=== PATIENT | female | born 1935 | race Caucasian/White ===

== ENCOUNTER 2017-10-22 23:29 | Emergency (ER) | payer MEDICARE, OTHER, SELFPAY ==
[2017-10-22 23:35] VITALS: BP 156/111; PULSE 103; RESP 20; TEMP 36.6; O2SAT 95; BMI 40.5
--- NOTE | 2017-10-22 23:57 | ED.VISSUMM ---
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 Patient states her cat scratched her left ankle earlier today. Patient states she was scratched with the cats back claws, not with the cat's mouth. Wounds were cleansed and dressed at that time. Patient states she got up tonight to go to bed and had blood on the pillow under her ankle. Physical Examination: Blood pressure is 156/111, otherwise vitals normal. Patient is in no acute distress. Lower extremity examination reveals 3+ bilateral lower extremity edema. She has 3 V-shaped superficial lacerations on the lateral left ankle. Each laceration measures approximately 1/2 cm in length. One of the lesions has mild bleeding at this time. Test Results: [] Emergency Department Course and Treatment: Wound was cleansed. Surgifoam was placed over the wound and Santo wrap applied. Patient has been on the same dose of Coumadin for quite some time and has not recently been on antibiotics. I do not think INR needs to be checked at this time. Her bleeding is very minimal. Treatment Plan: [] Disposition: Discharge Impression: Superficial skin tear left ankle This note was generated with [employer] dictation software. It may contain incorrect words, spelling, and punctuation that were not noted in review of the chart prior to signing ED Disposition - Plan for ED Patient: Chief Complaint: Laceration Referrals: Aditya Hope Chi, MD [Primary Care Provider] -
--- NOTE | 2017-10-22 23:59 | ED.DEP ---
ED Disposition - Plan for ED Patient: Disposition: Home or Assisted Living Chief Complaint: Laceration Instructions: ED Laceration Small Superf No Sutr Referrals: Aditya Hope Chi, MD [Primary Care Provider] - As Needed
[2017-10-23 00:23] VITALS: PULSE 98; RESP 16
== END 2017-10-23 00:23 | disposition home or self-care (01) ==
LOC: ED 10-23 00:06
PROVIDERS: Emergency Provider Emergency Medicine; Family Provider Family Medicine Geriatric Medicine; PCP Family Medicine Geriatric Medicine
DX: S91.012A Laceration without foreign body, left ankle, initial encounter (principal); R60.0 Localized edema; E66.9 Obesity, unspecified; W55.03XA Scratched by cat, initial encounter; Y93.9 Activity, unspecified; Y92.9 Unspecified place or not applicable; I25.10 Atherosclerotic heart disease of native coronary artery without angina pectoris; J44.9 Chronic obstructive pulmonary disease, unspecified; K21.9 Gastro-esophageal reflux disease without esophagitis; I10 Essential (primary) hypertension; I48.91 Unspecified atrial fibrillation; E03.9 Hypothyroidism, unspecified; Z86.718 Personal history of other venous thrombosis and embolism; G47.33 Obstructive sleep apnea (adult) (pediatric); M54.9 Dorsalgia, unspecified; Z79.82 Long term (current) use of aspirin; Z79.01 Long term (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 anticoagulants; Z79.02 Long term (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 antithrombotics/antiplatelets; Z79.899 Other long term (current) drug therapy
CPT/HCPCS: 99282

== ENCOUNTER → 2017-11-04 14:18 | Outpatient (CLI) | payer MEDICARE, OTHER, SELFPAY ==
[2017-11-04 17:25] LABS: Absolute Lymphocyte Count 1.91 X10^3/ul (0.83-4.51); Basophil# 0.03 X10^3/uL; Basophil% 0.3 % (0-1); Eosinophil# 0.09 X10^3/uL; Eosinophils% 0.8 % (0-5); Hematocrit 41.9 % (37-47); Hemoglobin 13.3 g/dl (12.0-15.0); Lymphocyte # 1.91 X10^3/ul (4.0); Lymphocyte % 16.1 % (19-41); Mean Corp Hgb Conc 31.7 g/gl (32-36); Mean Corpuscular Volume 97.7 fL (81-99); Mean Platelet Vol. 11.3 fl (6.2-12.0); Monocyte# 0.82 X10^3/uL; Monocyte% 6.9 % (0-10); Neutrophil # 8.98 X10^3/uL (2.7-7.7); Neutrophil % 75.7 % (47-70); POSITIVE COUNT NO; POSITIVE DIFFERENTIAL NO; POSITIVE MORPHOLOGY NO; Platelet Count 259 K/mm3 (150-450); RBC Distribution Width SD 45.8 fl (35.1-43.9); Red Blood Count 4.29 M/mm3 (4.2-5.4); White Blood Count 11.9 K/mm3 (4.4-11.0)
[2017-11-04 18:10] LABS: ALB/GLOB Ratio 1.1 RATIO (0.9-2.4); AST(SGOT) 13 U/L (15-37); Alanine Aminotransfer ALT/SGPT 19 U/L (13-56); Albumin, Serum 3.3 g/dL (3.2-5.0); Alkaline Phosphatase 130 U/L (45-117); Anion Gap 10 (5-15); BUN 18 mg/dL (7-18); BUN/Creat Ratio 21.5 RATIO (10-20); Calcium,Total 9.6 mg/dL (8.5-10.1); Chloride 106 mmol/L (98-107); Creatinine, Serum 0.84 mg/dL (0.55-1.02); EST Glomerular Filtration Rate 69 mL/min (>60); Est Glom Filt Rate - Afr Amer 84 mL/min (>60); Glucose 122 mg/dL (74-106); Potassium 3.5 mmol/L (3.5-5.1); Protein, Total 6.3 g/dL (6.4-8.2); Sodium Level 141 mmol/L (136-145)
[2017-11-04 21:37] LABS: Vitamin D,25 Hydroxy 35.6 ng/mL (19.95-100.01)
== END ==
PROVIDERS: Family Provider Family Medicine Geriatric Medicine; PCP Family Medicine Geriatric Medicine; Visit Provider Family Medicine Geriatric Medicine
DX: E55.9 Vitamin D deficiency, unspecified (principal); I10 Essential (primary) hypertension; M10.9 Gout, unspecified
CPT/HCPCS: 36415; 80053; 82306; 84443; 85025

== ENCOUNTER → 2017-12-02 15:31 | Outpatient (CLI) | payer MEDICARE, OTHER, SELFPAY | PROVIDERS: Family Provider Family Medicine Geriatric Medicine; PCP Family Medicine Geriatric Medicine; Visit Provider Family Medicine Geriatric Medicine | DX: R68.83 Chills (without fever) (principal) | CPT/HCPCS: 87633 ==

== ENCOUNTER → 2017-12-30 12:59 | Outpatient (CLI) | payer MEDICARE, OTHER, SELFPAY ==
--- NOTE | 2017-12-30 13:01 | ECHOD_ITS ---
Reason For Study: Dyspnea/SOB Procedure This was a 2D Doppler, Color Flow transthoracic echocardiogram. The study was technically difficult. Did not use Definity due to increased PAP. Exam performed in department. Left Ventricle Normal LV size. Left ventricular systolic function is normal. The estimated ejection fraction is 55 %. Transmitral diastolic flow velocities suggest mild (stage 1) diastolic dysfunction (reversed pattern). No regional wall motion abnormalities noted. Right Ventricle Normal RV size. Normal systolic function. Atria Normal left atrium. Normal right atrium. Mitral Valve Normal mitral valve. Trivial eccentric mitral valve insufficiency. Tricuspid Valve Normal tricuspid valve. Mild (1+) tricuspid valve insufficiency. Pulmonary artery systolic pressure is 63 mmHg. Moderate pulmonary hypertension. Aortic Valve Trisinus/trileaflet aortic valve. Mild focal aortic valve calcification. Pulmonic Valve Normal pulmonic valve. Great Vessels Normal aortic root. The pulmonary artery is normal size. Normal inferior vena cava. Pericardium/Pleural No pericardial effusion. MMode/2D Measurements & Calculations LVIDd: 4.4 cm IVSd: 0.77 cm Ao root diam: 2.9 cm LVIDs: 2.8 cm LVPWd: 0.80 cm LA dimension: 4.0 cm RVDd: 3.3 cm FS: 36.0 % LAV(MOD-bp): 39.2 ml LA A4 area: 15.3 cm2 RA A4 area: 13.8 cm2 LAV(MOD-bp) Indexed: 18.9 ml/m2 LAV(MOD-sp2): 42.3 ml LAV(MOD-sp4): 35.8 ml Doppler Measurements & Calculations MV E max reji: 83.9 cm/sec Lat Peak E' Reji: 7.4 cm/sec Med Peak E' Reji: 7.7 cm/sec MV A max reji: 105.0 cm/sec E/E' lat: 11.4 E/E' med: 10.8 MV E/A: 0.80 Ao V2 max: 138.4 cm/sec LV V1 max: 106.4 cm/sec PA V2 max: 93.5 cm/sec Ao max P.7 mmHg LV V1 max P.5 mmHg Ao V2 mean: 108.3 cm/sec Ao mean P.0 mmHg Ao V2 VTI: 27.7 cm TR max reji: 383.6 cm/sec TR max P.9 mmHg Interpretation Summary Normal LV size. Left ventricular systolic function is normal. The estimated ejection fraction is 55 %. Transmitral diastolic flow velocities suggest mild (stage 1) diastolic dysfunction (reversed pattern). Pulmonary artery systolic pressure is 63 mmHg. Moderate pulmonary hypertension. Ordering Physician: Bernard Bethea Referring Physician: Aditya Hope Chi Performed By: Christiane Bethea RDCS, RVT
== END ==
PROVIDERS: Family Provider Family Medicine Geriatric Medicine; PCP Family Medicine Geriatric Medicine; Visit Provider Nurse Practitioner Family
DX: I25.10 Atherosclerotic heart disease of native coronary artery without angina pectoris (principal); R06.09 Other forms of dyspnea; I27.20 Pulmonary hypertension, unspecified
CPT/HCPCS: 93306

== ENCOUNTER → 2018-05-06 15:02 | Outpatient (CLI) | payer MEDICARE, SELFPAY ==
[2018-05-06 17:30] LABS: Absolute Lymphocyte Count 1.46 X10^3/ul (0.83-4.51); Absolute Neutrophil Count 8.2 X10^3/uL (2.0-7.7); Basophil# 0.03 X10^3/uL; Basophil% 0.3 % (0-1); Eosinophil# 0.07 X10^3/uL; Eosinophils% 0.6 % (0-5); Hematocrit 45.5 % (37-47); Hemoglobin 14.8 g/dl (12.0-15.0); Lymphocyte # 1.46 X10^3/ul (4.0); Lymphocyte % 13.5 % (19-41); Mean Corp Hgb Conc 32.5 g/gl (32-36); Mean Corpuscular Hgb 31.4 pg (27.0-32.0); Mean Corpuscular Volume 96.6 fL (81-99); Mean Platelet Vol. 12.2 fl (6.2-12.0); Monocyte# 1.05 X10^3/uL; Monocyte% 9.7 % (0-10); Neutrophil % 75.6 % (47-70); Platelet Count 226 K/mm3 (150-450); RBC Distribution Width CV 12.8 % (11.6-14.6); RBC Distribution Width SD 44.6 fl (35.1-43.9); Red Blood Count 4.71 M/mm3 (4.2-5.4); White Blood Count 10.8 K/mm3 (4.4-11.0)
[2018-05-06 17:43] LABS: AST(SGOT) 18 U/L (15-37); Alanine Aminotransfer ALT/SGPT 23 U/L (13-56); Albumin, Serum 3.4 g/dL (3.2-5.0); Alkaline Phosphatase 118 U/L (45-117); Anion Gap 12 (5-15); BUN 12 mg/dL (7-18); BUN/Creat Ratio 12.9 RATIO (10-20); Calcium,Total 9.9 mg/dL (8.5-10.1); Chloride 105 mmol/L (98-107); Creatinine, Serum 0.93 mg/dL (0.55-1.02); EST Glomerular Filtration Rate 61 mL/min (>60); Est Glom Filt Rate - Afr Amer 74 mL/min (>60); Globulin 3.3 g/dL (2.2-4.2); Glucose 114 mg/dL (74-106); Potassium 3.5 mmol/L (3.5-5.1); Protein, Total 6.7 g/dL (6.4-8.2); Sodium Level 142 mmol/L (136-145); Thyroid Stim Hormone (TSH) 0.33 uIU/mL (0.358-3.74); Uric Acid 6.4 mg/dL (2.6-6.0)
[2018-05-06 18:14] LABS: POSITIVE COUNT NO; POSITIVE DIFFERENTIAL NO; POSITIVE MORPHOLOGY NO
[2018-05-07 08:37] LABS: Vitamin D,25 Hydroxy 64.5 ng/mL (29.95-100.01)
== END ==
PROVIDERS: Family Provider Family Medicine Geriatric Medicine; PCP Family Medicine Geriatric Medicine; Visit Provider Family Medicine Geriatric Medicine
DX: E55.9 Vitamin D deficiency, unspecified (principal); I10 Essential (primary) hypertension; M10.9 Gout, unspecified
CPT/HCPCS: 36415; 80053; 82306; 84443; 84550; 85025

== ENCOUNTER → 2018-05-25 16:40 | Outpatient (CLI) | payer MEDICARE, SELFPAY | PROVIDERS: Family Provider Family Medicine Geriatric Medicine; PCP Family Medicine Geriatric Medicine; Visit Provider Family Medicine Geriatric Medicine | DX: N39.0 Urinary tract infection, site not specified (principal) | CPT/HCPCS: 87086; 87088; 87186 ==

== ENCOUNTER → 2018-08-23 12:04 | Outpatient (CLI) | payer MEDICARE, OTHER, SELFPAY ==
[2018-08-23 12:04] VITALS: BMI 40.5
--- NOTE | 2018-08-23 12:19 | RAD_ITS ---
STUDY: X-RAY - RIGHT KNEE REASON FOR EXAM: Female, 83 years old. Pain. TECHNIQUE: 4 view(s) of the knee. COMPARISON: None. FINDINGS: There is mild periarticular spurring of the femoral condyles. There is degenerative anterior and lateral particular spurring of the tibial plateau. Normal visualized proximal fibula. Normal patella. There is no demonstrated destructive osseous lesion or acute fracture. There is degenerative arthrosis of the medial femorotibial compartment with moderate joint space narrowing. There is degenerative arthrosis of the lateral femorotibial compartment with moderately severe joint space narrowing. There is mild to moderate degenerative narrowing of the patellofemoral articulation. There is no significant joint effusion. The soft tissue structures are unremarkable. RAD/Knee 4 or More Views IMPRESSION: Tricompartmental degenerative arthrosis of the knee, most significant in the lateral femorotibial compartment. Electronically Signed: Fer Headley MD at 15:03 EST , Service support ,
--- NOTE | 2018-08-23 12:30 | RAD_ITS ---
STUDY: X-RAY - LEFT KNEE REASON FOR EXAM: Female, 83 years old. Knee pain. History of surgery. TECHNIQUE: 4 view(s) of the knee. COMPARISON: 4 views of the left knee November 19, 2015 FINDINGS: There is stable mild periarticular spurring of the femoral condyles. There is stable periarticular spurring of the lateral plateau as well as spurring of the tibial spines. Normal visualized proximal fibula. There is stable periarticular spurring at the apex of the patella. There is no demonstrated destructive osseous lesion or acute fracture. Normal medial femorotibial compartment. There is stable degenerative arthrosis of the lateral femorotibial compartment with moderate joint space narrowing. There is mild degenerative arthrosis of the patellofemoral articulation. There is no significant joint effusion. The soft tissue structures are unremarkable. RAD/Knee 4 or More Views IMPRESSION: Stable degenerative changes of the left knee since October 2015 Electronically Signed: Fer Headley MD at 15:10 EST , Service support ,
--- OUTSIDE RECORDS SUMMARY | 2018-10-16 18:19 | XMS RPT_ITS ---
:1935 Author Organization OHIP Support Name Relationship Address Phone R Unavailable Unavailable Unavailable EZEQUIEL MILLERER Unavailable [address] + [place] [address] R Unavailable Unavailable Unavailable ANGELA CHRISTOPHER Unavailable [address] + [place] [address] R Unavailable Unavailable Unavailable ANGELA CHRISTOPHER Unavailable [address] + [place] [address] R Unavailable Unavailable Unavailable ANGELA CHRISTOPHER Unavailable [address] + [place] [address] R Unavailable Unavailable Unavailable ANGELA CHRISTOPHER Unavailable [address] + [place] [address] R Unavailable Unavailable Unavailable ANGELA CHRISTOPHER Unavailable [address] + [place] [address] R Unavailable Unavailable Unavailable ANGELA CHRISTOPHER Unavailable [address] + [place] [address] R Unavailable Unavailable Unavailable ANGELA CHRISTOPHER Unavailable [address] + [place] [address] R Unavailable Unavailable Unavailable ANGELA CHRISTOPHER Unavailable [address] + [place] [address] R Unavailable Unavailable Unavailable ANGELA CHRISTOPHER Unavailable [address] + [place] [address] R Unavailable Unavailable Unavailable ANGELA CHRISTOPHER Unavailable [address] + [place] [address] R Unavailable Unavailable Unavailable ANGELA CHRISTOPHER Unavailable [address] + [place] [address] R Unavailable Unavailable Unavailable IRVING MILLEROPHER Unavailable [address] + [place] [address] R Unavailable Unavailable Unavailable ANGELA, CHRISTOPHER Unavailable [address] + [place] [address] R Unavailable Unavailable Unavailable ANGELA, CHRISTOPHER Unavailable [address] + [place] [address] R Unavailable Unavailable Unavailable ANGELA, CHRISTOPHER Unavailable [address] + [place] [address] R Unavailable Unavailable Unavailable ANGELA, CHRISTOPHER Unavailable [address] + [place] [address] R Unavailable Unavailable Unavailable ANGELA, CHRISTOPHER Unavailable [address] + [place] [address] R Unavailable Unavailable Unavailable R Unavailable Unavailable Unavailable ANGELA, CHRISTOPHER Unavailable [address] + [place] [address] ABEBA BARNETT Unavailable [address] + [place] [address] R Unavailable Unavailable Unavailable ANGELA, CHRISTOPHER Unavailable [address] + [place] [address] ALY BARNETTWARD Unavailable [address] + [place] [address] R Unavailable Unavailable Unavailable ANGELA, CHRISTOPHER Unavailable [address] + [place] [address] ABEBA BARNETT Unavailable [address] + [place] [address] R Unavailable Unavailable Unavailable ANGELA, CHRISTOPHER Unavailable [address] + [place] [address] R Unavailable Unavailable Unavailable R Unavailable Unavailable Unavailable ANGELA CHRISTOPHER Unavailable [address] + [place] [address] R Unavailable Unavailable Unavailable R Unavailable Unavailable Unavailable ANGELA, CHRISTOPHER Unavailable [address] + [place] [address] Care Team Providers Name Role Phone Aditya Hope Chi Primary Care Unavailable Elise Min Attending Unavailable Jayy, Aditya Chi Attending Unavailable Jayy, Aditya Chi Primary Care Unavailable Jayy, Aditya Chi Attending Unavailable Jayy, Aditya Chi Referring Unavailable Jayy, Aditya Chi Primary Care Unavailable Sonny Person Attending Unavailable Jayy, Aditya Chi Referring Unavailable DeFinisTyreeumi Attending Unavailable Roof, Bernard H Attending Unavailable Jayy, Aditya Chi Referring Unavailable Jayy, Aditya Chi Primary Care Unavailable Roof, Bernard H Attending Unavailable Roof, Bernard H Referring Unavailable Jayy, Aditya Chi Primary Care Unavailable Roof, Bernard H Attending Unavailable Roof, Bernard H Referring Unavailable Jayy, Aditya Chi Primary Care Unavailable Sonny Person Attending Unavailable Dossie, Cesia Zuleta Attending Unavailable Jayy, Aditya Chi Referring Unavailable Jayy, Aditya Chi Primary Care Unavailable Dossie, Cesia Zuleta Attending Unavailable Dossie, Cesia BaldwinCJaspal Referring Unavailable Jayy, Aditya Chi Primary Care Unavailable Dossie, Cesia Zuleta Attending Unavailable Jayy, Aditya Chi Referring Unavailable Jayy, Aditya Chi Primary Care Unavailable Dossie, Cesia Zuleta Attending Unavailable Jayy, Aditya Chi Referring Unavailable Jayy, Aditya Chi Primary Care Unavailable Dossie, Cesia Zuleta Attending Unavailable Jayy, Aditya Chi Referring Unavailable Jayy, Aditya Chi Primary Care Unavailable Dossie, Cesia Zuleta Attending Unavailable Jayy, Aditya Chi Referring Unavailable Jayy, Aditya Chi Primary Care Unavailable Dossie, Cesia Zuleta Attending Unavailable Jayy, Aditya Chi Referring Unavailable Jayy, Aditya Chi Primary Care Unavailable Dossie, Cesia Zuleta Attending Unavailable Jayy, Aditya Chi Referring Unavailable Jayy, Aditya Chi Primary Care Unavailable Sonny Person Attending Unavailable Dossie, Cesia Zuleta Attending Unavailable Jayy, Aditya Chi Referring Unavailable Jayy, Aditya Chi Primary Care Unavailable Jayy, Aditya Chi Attending Unavailable Jayy, Aditya Chi Primary Care Unavailable Jayy, Aditya Chi Attending Unavailable Jayy, Aditya Chi Primary Care Unavailable Nolt, Cynthia Attending Unavailable Sonny Person Attending Unavailable Jayy, Aditya Chi Referring Unavailable Jayy, Aditya Chi Attending Unavailable Jayy, Aditya Chi Referring Unavailable Jayy, Aditya Chi Primary Care Unavailable PROBLEMS PROBLEMS DATE TYPE CONDITION / CODE ATTENDING STATUS SOURCE 06/22/2018 Unknown R00.2 - Palpitations Sonny Person Active [facility] / R00.2(ICD-10) [facility] Repository 06/22/2018 Unknown I10 - Essential Naya, [place] Active [facility] (primary) Community hypertension / Hospital I10(ICD-10) Repository 06/22/2018 Unknown Z95.5 - Presence of Naya, Sonny Active [place] coronary angioplasty Community implant and graft / Hospital Z95.5(ICD-10) Repository 06/22/2018 Unknown I48.91 - Unspecified Naya, Sonny Active [place] atrial fibrillation / Community I48.91(ICD-10) Hospital Repository 04/13/2018 Unknown M99.03 - Segmental Dossie, Cesia Active [facility] and somatic [facility] Community dysfunction of lumbar Hospital region / Repository M99.03(ICD-10) 04/13/2018 Unknown M51.36 - Other Dossie, Cesia Active [facility] intervertebral disc [facility] Community degeneration, lumbar Hospital region / Repository M51.36(ICD-10) 04/13/2018 Unknown M99.05 - Segmental Dossie, Cesia Active [place] and somatic D.C[facility] Community dysfunction of pelvic Hospital region / Repository M99.05(ICD-10) 04/13/2018 Unknown M99.02 - Segmental Dossie, Cesia Active [facility] and [facility] Community dysfunction of Hospital thoracic region / Repository M99.02(ICD-10) 12/28/2017 Unknown R06.09 - Other forms RoofBernard Active [facility] of dyspnea / Community R06.09(ICD-10) Hospital Repository 12/28/2017 Unknown I25.10 - Roof, Bernard Moreau Active [place] Atherosclerotic heart Community disease of [place] [facility] coronary artery Repository without angina pectoris / I25.10(ICD-10) 12/28/2017 Unknown I27.20 - Pulmonary Roof, Bernard Moreau Active [place] hypertension, Community unspecified / Hospital I27.20(ICD-10) Repository 12/02/2017 Unknown R68.83 - Chills Jayy, Aditya Chi Active [facility] (without fever) / Community R68.83(ICD-10) Hospital Repository 12/31/2017 Unknown E55.9 - Vitamin D Jayy, Aditya Chi Active [place] deficiency, Community unspecified / Hospital E55.9(ICD-10) Repository 04/01/2018 Unknown S91.012A - Laceration Min, Elise Active [facility] without foreign body, Community left ankle, initial Hospital encounter / Repository S91.012A(ICD-10) PROCEDURES PROCEDURES No Procedure Records FoundRESULTS RESULTS KNEE 4 OR MORE Observed: 08/23/2018 Status: F Source: [place] VIEWS 12:19 PM [facility] REPOSITORY [facility] Imaging Services [address] [place] [address] Knee 4 or More Views MR#: [id number] Acct: [id number] Name: PAULO MILLER Rep #: [id number] : 1935 F 83 From: Mariano Headley MD PCP: Aditya Hope MD, Chi Status: REG CLI Study: Knee 4 or More Views Date of Exam: 08/23/18 Exam# [id number] Ordering Dr: Aditya Hope MD ADDENDUM by Fer Headley on 08/23/18 at 6589 ADDENDUM 4 images of the right knee April 14, 2016 and received for comparison. Lateral periarticular spurring of the patella is stable, and the degenerative arthrosis of the knee described in the body of the report is otherwise unchanged. Electronically Signed: Fer Headley MD at 15:12 EST , Service support , 08/23/181511 Date cc: Aditya Hope MD * Signed ADDENDUM by Fer Headley on 08/23/18 at 3290 RAD/Knee 4 or More Views 08/23/181517 Date cc: Aditya Hope MD * Signed STUDY: X-RAY - RIGHT KNEE REASON FOR EXAM: Female, 83 years old. Pain. TECHNIQUE: 4 view(s) of the knee. COMPARISON: None. FINDINGS: There is mild periarticular spurring of the femoral condyles. There is degenerative anterior and lateral particular spurring of the tibial plateau. Normal visualized proximal fibula. Normal patella. There is no demonstrated destructive osseous lesion or acute fracture. There is degenerative arthrosis of the medial femorotibial compartment with moderate joint space narrowing. There is degenerative arthrosis of the lateral femorotibial compartment with moderately severe joint space narrowing. There is mild to moderate degenerative narrowing of the patellofemoral articulation. There is no significant joint effusion. The soft tissue structures are unremarkable. RAD/Knee 4 or More Views IMPRESSION: Tricompartmental degenerative arthrosis of the knee, most significant in the lateral femorotibial compartment. Electronically Signed: Fer Headley MD at 15:03 EST , Service support , CC: Aditya Hope MD Supervisor Publications: Signed KNEE 4 OR MORE Observed: 08/23/2018 Status: F Source: [place] VIEWS 12:11 PM [facility] REPOSITORY [facility] Imaging Services [address] [place] [id number] Knee 4 or More Views MR#: [id number] Acct: [id number] Name: PAULO MILLER Rep #: [id number] : 1935 F 83 From: Mariano Headley MD PCP: Aditya Hope MD, Chi Status: REG CLI Study: Knee 4 or More Views Date of Exam: 08/23/18 Exam# [id number] Ordering Dr: Aditya Hope MD STUDY: X-RAY - LEFT KNEE REASON FOR EXAM: Female, 83 years old. Knee pain. History of surgery. TECHNIQUE: 4 view(s) of the knee. COMPARISON: 4 views of the left knee November 19, 2015 FINDINGS: There is stable mild periarticular spurring of the femoral condyles. There is stable periarticular spurring of the lateral plateau as well as spurring of the tibial spines. Normal visualized proximal fibula. There is stable periarticular spurring at the apex of the patella. There is no demonstrated destructive osseous lesion or acute fracture. Normal medial femorotibial compartment. There is stable degenerative arthrosis of the lateral femorotibial compartment with moderate joint space narrowing. There is mild degenerative arthrosis of the patellofemoral articulation. There is no significant joint effusion. The soft tissue structures are unremarkable. RAD/Knee 4 or More Views IMPRESSION: Stable degenerative changes of the left knee since October 2015 Electronically Signed: Fer Headley MD at 15:10 EST , Service support , CC: Aditya Hope MD Supervisor Publications: Signed CARDIOLOGY VISIT Observed: 06/22/2018 Status: F Source: [place] REPORT 3:40 PM [facility] REPOSITORY [facility] [address] [place] [address] OFFICE VISIT Date of Service: 06/22/18 MR#: [id number] Acct: [id number] Name: PAULO MILLER Rep #: [id number] : 1935 Provider: Sonny Person MD Age/Sex: 82/F [place] [facility] [place] S[place] [facility] Chief Complaint: Follow-up visit. Details: PAULO MILLER, is a 82 F who presents to the office today for a follow-up visit. She is a lady with a history of coronary artery disease status post angioplasty and stenting of a proximal 80% stenosis in the left anterior descending artery and residual disease noted in the right coronary artery which was severe. Medical therapy was recommended for the above. She appears to have done well denying any chest pain or shortness breath or paroxysmal nocturnal dyspnea. She did undergo stress testing in 2014 with no evidence of ischemia. She also has a history of previous pulmonary emboli and has a mildly dilated right ventricle with moderate pulmonary hypertension. Her pulmonary artery systolic pressures have been in the range of 50-55 mmHg with a preserved ejection fraction. She has not had any neck arm or jaw discomfort suggest angina and has not had any further episodes of palpitations. She continues to have nonpitting pedal edema. Her physical exam demonstrates clear lung villegas regular rate and rhythm and nonpitting edema. 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 Required: No Is patient in pain?: No Allergies ibuprofen Allergy (Verified 06/17/18 16:42) Unknown Medications Budesonide/Formoterol 160/4.5 [Symbicort 160/4.5 Mcg Inhaler (SP)] 2 puff INHALATION BID 11/24/13 [History Confirmed 06/22/18] Omeprazole [Prilosec] 20 mg PO DAILY 11/24/13 [History Confirmed 06/22/18] Pravastatin Sodium [Pravachol] 40 mg PO QHS 11/24/13 [History Confirmed 06/22/18] Warfarin [Coumadin] 3 mg PO DAILY 11/24/13 [History Confirmed 06/22/18] Levothyroxine [Synthroid] 112 mcg PO DAILY 04/14/16 [History Confirmed 06/22/18] Aspirin [Aspirin, Baby] 81 mg PO DAILY@0800 10/20/16 [History Confirmed 06/22/18] Cholecalciferol (Vitamin D3) [Vitamin D3] 5,000 unit PO DAILY 10/20/16 [History Confirmed 06/22/18] Methenamine Mandelate 1 tab PO QHS 10/20/16 [History Confirmed 06/22/18] Ascorbic Acid [Vitamin C] 500 mg PO DAILY@0800 05/12/17 [History Confirmed 12/28/17] Cyanocobalamin (Vitamin B-12) [Vitamin B-12] 500 mcg PO DAILY 05/12/17 [History Confirmed 06/22/18] Tiotropium Logan [Spiriva 18 MCG] 1 puff INHALATION DAILY 05/12/17 [History Confirmed 06/22/18] ergocalciferol (vitamin D2) 50,000 unit capsule 50,000 unit PO QWEEK 12/10/17 [History Confirmed 06/22/18] nitroglycerin 0.4 mg sublingual tablet 0.4 mg SUBLINGUAL Q5M PRN 12/10/17 [History Confirmed 06/22/18] acetaminophen 500 mg capsule 500 mg PO Q6H PRN 12/28/17 [History Confirmed 12/28/17] lisinopril 10 mg tablet 10 mg PO QDAY 12/28/17 [History Confirmed 06/22/18] clopidogrel 75 mg tablet 75 mg PO DAILY #90 tab 01/15/18 [Rx Confirmed 06/22/18] isosorbide mononitrate ER 30 mg tablet,extended release 24 hr 30 mg PO DAILY #90 tab 04/05/18 [Rx Confirmed 06/22/18] furosemide 40 mg tablet 20 mg PO DAILY tab 06/22/18 [History Confirmed 06/22/18] PFS Medical History senior living current use of anticoagulant (Chronic) Essential hypertension (Chronic) DDD (degenerative disc disease), lumbar (Chronic) Dyspnea on exertion (Resolved) Palpitations (Resolved) Pulmonary hypertension (Chronic) Atherosclerotic heart disease of [place] coronary artery without angina pectoris (Chronic) senior living use of drug (Chronic) Paroxysmal tachycardia (Chronic) Pulmonary embolism (Chronic) VTE (venous thromboembolism) (Chronic) CAD (coronary artery disease) (Chronic) Hyperlipidemia (Chronic) ADAIR (obstructive sleep apnea) (Chronic) Atrial fibrillation (Chronic) COPD (chronic obstructive pulmonary disease) (Chronic) Hypothyroid (Chronic) GERD (gastroesophageal reflux disease) (Chronic) Syncope and collapse (Chronic) Chest pain (Resolved) Fatigue (Resolved) History of hysterectomy (Resolved) Hypertension (Resolved) Surgical History Presence of stent in coronary artery (Resolved) Family History Father Myocardial infarction hx black lung Mother CHF (congestive heart failure) Sister CAD (coronary artery disease) Hx CABG Myocardial infarction Diabetes CHF (congestive heart failure) Brother FH: ALS (amyotrophic lateral sclerosis) Brother pacemaker Social History Smoking Status: Never smoker alcohol intake: never substance use type: does not use diet: low salt caffeine: No what type of physical activity do you participate in: none seatbelt use: always do you feel safe at home: Yes ROS Const Const: Negative for fatigue, weakness, night sweats, excessive sweating, frequent falls, headache(s) or daytime sleepiness Eyes Eyes: Negative for loss of peripheral vision, transient loss of vision, blind spots, double vision or blurry vision ENT ENT: Negative for headache(s), dizziness, balance problems, Nosebleed/epistaxis, tongue swelling or lip swelling Cardio Chest Pain: No Palpitations: No Edema: Bilateral Muscle aches with walking: None Resp Respiratory: Positive for SOB with activity; negative for SOB at rest, SOB orthopnea\SOB lying down, Cough or paroxysmal nocturnal dyspnea GI GI: Negative nausea, vomiting, heartburn, black,tarry stools or bright, red blood in stools : Negative for hematuria Musc Musc: Negative for balance problems, muscle aches/ myalgia, muscle weakness or joint pain Skin Skin: Negative non-healing lesions, unusual bruising or rash Neuro Neuro: Negative for weakness, frequent falls, headache(s), double vision, dizziness, lightheadedness, orthostatic symptoms, blurry vision or lack of coordination Geovani Hematologic/Lymphatic: Negative for easy bruising or easy bleeding Endo Endo: Negative for fatigue, excessive sweating, cold intolerance, heat intolerance, increased thirst/drinking or hair loss Psych Psych: Negative for anxiety or depression Allergy Allergy/Immunology: Negative for throat swelling, Negative for tongue swelling, Negative for hives, Negative for rash, Negative for lip swelling Cardiology Exam Const Appearance: cooperative, healthy appearing, well developed, well groomed and no acute distress Nutritional Appearance: well nourished and average body habitus Orientation: alert, awake and oriented x3 Head Head: normal to inspection, normocephalic and atraumatic Ears: hearing grossly normal bilaterally and external ears normal Nose: external nose normal, nasal mucous membranes and turbinates normal, nares normal, septum normal, no nasal discharge Face and Sinus: face symmetric Mouth: oral mucosae normal, tongue normal, oropharynx normal and moist mucous membranes Teeth and gingiva: dentition normal Throat: posterior oropharynx normal, tonsils normal and uvula midline Eyes General: appearance normal, both eyes and all related structures Eyelids: eyelids normal Conjunctivae: conjunctivae normal Pupils: PERRL, normal by confrontation and accommodation normal EOM: EOM intact bilaterally Neck Neck: normal visual inspection, trachea midline and no JVD JVD: +5 Carotids: normal carotid upstroke and bounding pulses Chest Chest inspection: normal inspection of the chest, symmetric chest movement and normal respiratory effort Auscultation: Bilateral: Clear to Auscultation Cardio Palpation: normal PMI Rate: regular rate Rhythm: regular rhythm Heart sounds: S1 normal, S2 normal and normal, physiologic split S2; negative rub, gallop or murmur GI GI: normal to inspection, soft, no hepatosplenomegaly and bowel sounds present Neuro General: alert, awake, oriented x3, no focal sensory deficit, gait normal and moves all extremities Skin Skin: no rashes or lesions noted Extremities Lower Extremity Edema: +2: Bilateral (non pitting) Musculoskel Musculoskeletal: No joint tenderness Psych Psychological: normal affect Assessment AND Plan 1. Essential hypertension I10 Plan She does have a history of essential hypertension which appears to be under good control at this time she will remain on the lisinopril with no changes. 2. Palpitations R00.2 Plan She has had previous episodes of palpitations which she says has resolved since her last visit here in December. It appears that these may have been paroxysms of atrial fibrillation. Her event monitor demonstrated a paroxysm of a narrow complex tachycardia. 3. Presence of stent in coronary artery Z95.5 STEFAINA to prox LAD November 2013 @ [facility] Plan She does have a history of coronary artery disease status post previous stenting she has had no angina and the plan will be to continue to manage her medically. 4. Atrial fibrillation I48.91 Plan She does have a history of paroxysmal atrial fibrillation for which she remains on Coumadin anticoagulation. She also is on aspirin and clopidogrel. At her age I would suggest that we discontinue the clopidogrel to prevent high risk of bleeding. Her last stent was in 2013. Plan Detail Goals Decrease pain and radiculopathy Improve gait Barriers DDD Follow Up 6 Months (mmm) Coding Level of Care Code Off vis,est,level 3 Diagnoses Essential hypertension I10 Palpitations R00.2 Presence of stent in coronary artery Z95.5 Atrial fibrillation I48.91 Coding Level of Care Code Off vis,est,level 3 Diagnoses Essential hypertension I10 Palpitations R00.2 Presence of stent in coronary artery Z95.5 Atrial fibrillation I48.91 06/22/18 1540 <Electronically signed by Sonny Person MD> Date Sonny Person MD Cosigner Signature: Date (if applicable) CC: Aditya Hope MD Observed: 05/25/2018 Status: F Source: [place] CULTURE, URINE 4:41 PM [facility] REPOSITORY Urine Culture ORGANISM 1: Presumptive E. coli [place] Count >100,000 Presumptive E. coli: REACTION Amoxacillin/Clavulanic Acid $ <=2 S Ampicillin $ <=2 S Ampicillin/Sulbactam $ <=2 S Cefazolin $ <=4 S Cefepime $ <=1 S Ceftriaxone $ <=1 S Ciprofloxacin $ <=0.25 S ESBL - Ertapenim $$$ <=0.5 S Gentamicin $ <=1 S Imipenem *NF <=0.25 S Levofloxacin $ <=0.12 S Nitrofurantoin $ <=16 S Piperacillin/Tazobactam $$ <=4 S Tobramycin $ <=1 S Trimethoprim/Sulfametho $ >=320 R (NF) indicates non-formulary drug at [facility]. Approval by Infectious Disease Specialist required before non-formulary drugs may be ordered and/or dispensed. Performed By: #### M100.0650 #### [facility] [place] [address], [address] COMPREHENSIVE METABOLIC Collected: 05/06/2018 Status: F Source: [place] PROFIL 3:35 PM [facility] REPOSITORY TYPE CODE TESTS RESULT OUT OF RANGE REFERENCE UNITS LAB L501.0100 74-106 mg/dL High GLU 114 Result Comment: Fasting Glucose result from 100 to 125 mg/dL suggests IMPAIRED HOMEOSTASIS per A.D.A. criteria. Please note revised GLUCOSE reference range effective 2017. LAB L501.1000 7-18 mg/dL Normal BUN 12 LAB L501.1100 0.55-1.02 mg/dL Normal CREAT,SERUM 0.93 Result Comment: The validity of the calculated GFR AND GFRAA in patients over 70 years has not been determined. Clinical correlation is essential. LAB L501.1110 >60 mL/min Normal EST GFR 61 Result Comment: Non- GFR Calc LAB L501.1115 >60 mL/min Normal EST GFR - AA 74 Result Comment: GFR Calc LAB L501.1300 10-20 RATIO Normal BUN/CRE 12.9 LAB L501.1500 6.4-8.2 g/dL T Normal PROT 6.7 LAB L501.1800 3.2-5.0 g/dL Normal ALB 3.4 LAB L501.1950 2.2-4.2 g/dL Normal GLOB 3.3 LAB L501.2000 0.9-2.4 RATIO Normal A/G 1.0 LAB L501.2200 8.5-10.1 mg/dL CA Normal 9.9 LAB L501.4100 15-37 U/L Normal AST 18 Result Comment: Slight Hemolysis, Result may be falsely increased. LAB L501.4305 45-117 U/L High ALK P 118 LAB L501.4405 13-56 U/L Normal ALT 23 LAB L501.4600 0.20-1.00 mg/dL High T BILI 1.60 LAB L501.5300 136-145 mmol/L Normal NA 142 LAB L501.5600 3.5-5.1 mmol/L Normal K 3.5 Result Comment: Slight Hemolysis, Result may be falsely increased. LAB L501.5900 98-107 mmol/L Normal CL 105 LAB L501.6100 21.0-32.0 mmol/L Normal CO2 25.0 LAB L501.6200 5-15 Normal GAP 12 Performed By: #### L500.4050, L501.1400, L501.9520 #### [facility] [address] [place], [address] URIC ACID Collected: 05/06/2018 Status: F Source: [place] 3:35 PM [facility] REPOSITORY TYPE CODE TESTS RESULT OUT OF RANGE REFERENCE UNITS LAB L501.1400 2.6-6.0 mg/dL High URIC 6.4 Result Comment: The drugs N-Acetylcysteine and Metamizole may falsely depress this assay. Performed By: #### L500.4050, L501.1400, L501.9520 #### [facility] [address] [place], [place], [address] THYROID STIM HORMONE Collected: 05/06/2018 Status: F Source: [place] (TSH) 3:35 PM [facility] REPOSITORY TYPE CODE TESTS RESULT OUT OF RANGE REFERENCE UNITS LAB L501.9520 0.358-3.74 uIU/mL Low TSH 0.33 Performed By: #### L500.4050, L501.1400, L501.9520 #### [facility] [address] [place], [address] CBC W/DIFF, AUTOMATED Collected: 05/06/2018 Status: F Source: PROCTOR 3:35 PM [facility] REPOSITORY TYPE CODE TESTS RESULT OUT OF RANGE REFERENCE UNITS LAB L100.1000 4.4-11.0 K/mm3 Normal WBC 10.8 LAB L100.1200 4.2-5.4 M/mm3 Normal RBC 4.71 LAB L100.1300 12.0-15.0 g/dl Normal HGB 14.8 LAB L100.1400 37-47 % Normal HCT 45.5 LAB L100.1500 81-99 fL Normal MCV 96.6 LAB L100.1600 27.0-32.0 pg Normal MCH 31.4 LAB L100.1700 32-36 g/gl Normal MCHC 32.5 LAB L100.1810 11.6-14.6 % Normal RDW CV 12.8 LAB L100.1820 35.1-43.9 fl High RDW SD 44.6 LAB L100.1900 150-450 K/mm3 Normal PLT 226 LAB L100.2000 6.2-12.0 fl High MPV 12.2 LAB L100.2100 47-70 % High NEUT% 75.6 LAB L100.2200 19-41 % Low LY% 13.5 LAB L100.2300 0-10 % Normal MONO% 9.7 LAB L100.2400 0-5 % Normal EO% 0.6 LAB L100.2500 0-1 % Normal BASO% 0.3 LAB L100.2550 0.0-0.9 % Normal IM GRAN % 0.300 Result Comment: IG% - Immature Granulocytes (promyelocytes, myelocytes and metamyelocytes) > 1% indicates that a LEFT SHIFT is Present. LAB L100.2620 2.0-7.7 X10 3/uL High Absolute Neut 8.2 LAB L100.2720 0.83-4.51 X10 3/ul Normal Absolute Lymph 1.46 Performed By: #### L100.0100 #### [facility] [address] [place], [address] VITAMIN D,25 HYDROXY Collected: 05/06/2018 Status: F Source: PROCTOR 3:35 PM [facility] REPOSITORY TYPE CODE TESTS RESULT OUT OF RANGE REFERENCE UNITS LAB L506.1000 29.95-100.01 ng/mL Normal Vitamin D 64.5 25-OH Result Comment: Vitamin D 25(OH) Status Range Deficiency <20 ng/mL (50nmol/L) Insuffciency 20 - 30 ng/mL (50 - 75 nmol/L) Sufficiency 30 - 100 ng/mL (75 - 250 nmol/L) Toxicity >100 ng/mL (>250 nmol/L) Performed By: #### L506.1000 #### [facility] [address] [place], [place], [address] CHIROPRACTIC REPORT Observed: 04/01/2018 Status: F Source: PROCTOR 1:10 PM [facility] REPOSITORY [facility] [address] [place] [address] OFFICE VISIT Date of Service: 03/30/18 MR#: [id number] Acct: [id number] Name: PAULO MILLER Rep #: [id number] : 1935 Provider: Cesia Scott D.C. Age/Sex: 82/F [place] [facility] [place]: Signed Intake Vital Signs03/30/18 Height 5 ft 4 in 03/30/18 Weight: 236 lb 03/30/18 Body Mass Index (BMI) 40.5 Intake Visit Reasons: back pain Chief Complaint: back pain Is patient in pain?: Yes Allergies ibuprofen Allergy (Verified 12/28/17 15:34) Unknown Medications Budesonide/Formoterol 160/4.5 [Symbicort 160/4.5 Mcg Inhaler (SP)] 2 puff INHALATION BID 11/24/13 [History Confirmed 12/28/17] Furosemide [Lasix] 40 mg PO DAILY 11/24/13 [History Confirmed 12/28/17] Omeprazole [Prilosec] 20 mg PO DAILY 11/24/13 [History Confirmed 12/28/17] Pravastatin Sodium [Pravachol] 40 mg PO QHS 11/24/13 [History Confirmed 12/28/17] Warfarin [Coumadin] 3 mg PO DAILY 11/24/13 [History Confirmed 12/28/17] Hydrocodone Bitart/Apap 5-325 [Cyclone 5/325] 1 tab PO Q6H PRN PRN #20 tab 04/14/16 [Rx Confirmed 12/28/17] Levothyroxine [Synthroid] 112 mcg PO DAILY 04/14/16 [History Confirmed 12/28/17] Aspirin [Aspirin, Baby] 81 mg PO DAILY@0800 10/20/16 [History Confirmed 12/28/17] Cholecalciferol (Vitamin D3) [Vitamin D3] 5,000 unit PO DAILY 10/20/16 [History Confirmed 12/28/17] Isosorbide Mononitrate [Imdur] 30 mg PO DAILY 10/20/16 [History Confirmed 12/28/17] Methenamine Mandelate 1 tab PO QHS 10/20/16 [History Confirmed 12/28/17] Ascorbic Acid [Vitamin C] 500 mg PO DAILY@0800 05/12/17 [History Confirmed 12/28/17] Cyanocobalamin (Vitamin B-12) [Vitamin B-12] 500 mcg PO DAILY 05/12/17 [History Confirmed 12/28/17] Tiotropium Logan [Spiriva 18 MCG] 1 puff INHALATION DAILY 05/12/17 [History Confirmed 12/28/17] ergocalciferol (vitamin D2) 50,000 unit capsule 50,000 unit PO QWEEK 12/10/17 [History Confirmed 12/28/17] nitroglycerin 0.4 mg sublingual tablet 0.4 mg SUBLINGUAL Q5M PRN 12/10/17 [History Confirmed 12/28/17] acetaminophen 500 mg capsule 500 mg PO Q6H PRN 12/28/17 [History Confirmed 12/28/17] duloxetine 20 mg capsule,delayed release 20 mg PO QDAY #90 cap 12/28/17 [Rx Confirmed 12/28/17] lisinopril 10 mg tablet 10 mg PO QDAY 12/28/17 [History Confirmed 12/28/17] clopidogrel 75 mg tablet 75 mg PO DAILY #90 tab 01/15/18 [Rx] PFSH Medical History DDD (degenerative disc disease), lumbar (Chronic) Dyspnea on exertion (Acute) Palpitations (Acute) Pulmonary hypertension (Chronic) Atherosclerotic heart disease of [place] coronary artery without angina pectoris (Chronic) senior living use of drug (Chronic) Paroxysmal tachycardia (Chronic) Pulmonary embolism (Chronic) VTE (venous thromboembolism) (Chronic) CAD (coronary artery disease) (Chronic) Hyperlipidemia (Chronic) ADAIR (obstructive sleep apnea) (Chronic) Atrial fibrillation (Chronic) COPD (chronic obstructive pulmonary disease) (Chronic) Syncope (Acute) Hypothyroid (Chronic) GERD (gastroesophageal reflux disease) (Chronic) Hypertension (Chronic) Chest pain (Acute) Fatigue (Acute) History of Coumadin therapy (Acute) Syncope and collapse (Acute) Surgical History Presence of stent in coronary artery (Resolved) History of hysterectomy (Resolved) Family History Father Myocardial infarction hx black lung Mother CHF (congestive heart failure) Sister CAD (coronary artery disease) Hx CABG Myocardial infarction Diabetes CHF (congestive heart failure) Brother FH: ALS (amyotrophic lateral sclerosis) Brother pacemaker Social History Smoking Status: Never smoker alcohol intake: never substance use type: does not use diet: low salt caffeine: No what type of physical activity do you participate in: none seatbelt use: always do you feel safe at home: Yes HPI back pain: Chief Complaint: low back pain Details: PAULO MILLER is a 82 year old F who presents with increased low back pain. The patient states that over the past week her pain has increased banding across the low back. Recently Paulo has been doing a lot of frequent bending, lifting and twisting causing increased pain. Today Paulo rates her pain a 4/10 and describes it as a tight ache that comes and goes. Paulo denies any numbness, tingling or radiculopathy. Location: low back Duration: constant Aggravating or associated factors: bending, lifting and twsitng Relieving factors: chiro Pain Quality: aching, dull, cramping Exam Musc General: Yes deformity (favoring the R leg ), decreased ROM and joint tenderness (T11, T12, L3-L5, R SI joint); no normal posture (flexed antalgia) or normal gait (forward flexed) Thoracic/Lumbar Spine: paraspinal tenderness (R SI ) on the right and on the right greater than left, scoliosis, lumbar spinal tenderness (R SI joint ), straight leg raise positive (R sided ), thor and lumb spine abnorm to inspection (decreased lordosis, flexed antalgia), Lasegue's sign positive on the right, pain with thoraco-lumbar ROM with forward flexion, with rotation to the right, with lateral flexion to the left and with lateral flexion to the right, thoraco-lumbar ROM limited with forward flexion, with lateral flexion to the right, with lateral flexion to the left, with rotation to the left and with rotation to the right, thoraco-lumbar spasm on the right greater than left (QL, piriformis) Sacroiliac joints: on the right tender to palpation Office Procedures Chiropractic Treatments Procedures Manipulation: 3-4 regions (T11, L3,L5, RIL) Assessment AND Plan Problems 1. Segmental and somatic dysfunction of thoracic region M99.02 2. Segmental and somatic dysfunction of pelvic region M99.05 3. DDD (degenerative disc disease), lumbar M51.36 4. Segmental and somatic dysfunction of lumbar region M99.03 Plan Patient is having a slight exacerbation since last visit. Recommend following up in 2 weeks and monitor response to treatment. Orders Orders: Plan Detail Goals Decrease pain and radiculopathy Improve gait Barriers DDD Follow Up 2 Weeks Coding Level of Care Code No Charge Diagnoses Segmental and somatic dysfunction of thoracic region M99.02 Segmental and somatic dysfunction of pelvic region M99.05 DDD (degenerative disc disease), lumbar M51.36 Segmental and somatic dysfunction of lumbar region M99.03 Additional Codes Procedures - Manipulation: 3-4 regions (61986) 04/01/18 1310 <Electronically signed by Cesia Scott D.C.> Date Cesia Scott D.C. Cosigner Signature: Date (if applicable) CC: CHIROPRACTIC REPORT Observed: 03/29/2018 Status: F Source: PROCTOR 9:40 AM [facility] [address] [place] [address] OFFICE VISIT Date of Service: 03/23/18 MR#: [id number] Acct: [id number] Name: PAULO MILLER Neftaly Rep #: [id number] : 1935 Provider: Cesia Scott D.C. Age/Sex: 82/F [place] [facility] [place] Status: Signed Intake Vital Signs03/23/18 Height 5 ft 4 in 03/23/18 Weight: 236 lb 03/23/18 Body Mass Index (BMI) 40.5 Intake Visit Reasons: back pain Chief Complaint: back pain Is patient in pain?: Yes Allergies ibuprofen Allergy (Verified 12/28/17 15:34) Unknown Medications Budesonide/Formoterol 160/4.5 [Symbicort 160/4.5 Mcg Inhaler (SP)] 2 puff INHALATION BID 11/24/13 [History Confirmed 12/28/17] Furosemide [Lasix] 40 mg PO DAILY 11/24/13 [History Confirmed 12/28/17] Omeprazole [Prilosec] 20 mg PO DAILY 11/24/13 [History Confirmed 12/28/17] Pravastatin Sodium [Pravachol] 40 mg PO QHS 11/24/13 [History Confirmed 12/28/17] Warfarin [Coumadin] 3 mg PO DAILY 11/24/13 [History Confirmed 12/28/17] Hydrocodone Bitart/Apap 5-325 [Cyclone 5/325] 1 tab PO Q6H PRN PRN #20 tab 04/14/16 [Rx Confirmed 12/28/17] Levothyroxine [Synthroid] 112 mcg PO DAILY 04/14/16 [History Confirmed 12/28/17] Aspirin [Aspirin, Baby] 81 mg PO DAILY@0800 10/20/16 [History Confirmed 12/28/17] Cholecalciferol (Vitamin D3) [Vitamin D3] 5,000 unit PO DAILY 10/20/16 [History Confirmed 12/28/17] Isosorbide Mononitrate [Imdur] 30 mg PO DAILY 10/20/16 [History Confirmed 12/28/17] Methenamine Mandelate 1 tab PO QHS 10/20/16 [History Confirmed 12/28/17] Ascorbic Acid [Vitamin C] 500 mg PO DAILY@0800 05/12/17 [History Confirmed 12/28/17] Cyanocobalamin (Vitamin B-12) [Vitamin B-12] 500 mcg PO DAILY 05/12/17 [History Confirmed 12/28/17] Tiotropium Logan [Spiriva 18 MCG] 1 puff INHALATION DAILY 05/12/17 [History Confirmed 12/28/17] ergocalciferol (vitamin D2) 50,000 unit capsule 50,000 unit PO QWEEK 12/10/17 [History Confirmed 12/28/17] nitroglycerin 0.4 mg sublingual tablet 0.4 mg SUBLINGUAL Q5M PRN 12/10/17 [History Confirmed 12/28/17] acetaminophen 500 mg capsule 500 mg PO Q6H PRN 12/28/17 [History Confirmed 12/28/17] duloxetine 20 mg capsule,delayed release 20 mg PO QDAY #90 cap 12/28/17 [Rx Confirmed 12/28/17] lisinopril 10 mg tablet 10 mg PO QDAY 12/28/17 [History Confirmed 12/28/17] clopidogrel 75 mg tablet 75 mg PO DAILY #90 tab 01/15/18 [Rx] PFSH Medical History DDD (degenerative disc disease), lumbar (Chronic) Dyspnea on exertion (Acute) Palpitations (Acute) Pulmonary hypertension (Chronic) Atherosclerotic heart disease of [place] coronary artery without angina pectoris (Chronic) senior living use of drug (Chronic) Paroxysmal tachycardia (Chronic) Pulmonary embolism (Chronic) VTE (venous thromboembolism) (Chronic) CAD (coronary artery disease) (Chronic) Hyperlipidemia (Chronic) ADAIR (obstructive sleep apnea) (Chronic) Atrial fibrillation (Chronic) COPD (chronic obstructive pulmonary disease) (Chronic) Syncope (Acute) Hypothyroid (Chronic) GERD (gastroesophageal reflux disease) (Chronic) Hypertension (Chronic) Chest pain (Acute) Fatigue (Acute) History of Coumadin therapy (Acute) Syncope and collapse (Acute) Surgical History Presence of stent in coronary artery (Resolved) History of hysterectomy (Resolved) Family History Father Myocardial infarction hx black lung Mother CHF (congestive heart failure) Sister CAD (coronary artery disease) Hx CABG Myocardial infarction Diabetes CHF (congestive heart failure) Brother FH: ALS (amyotrophic lateral sclerosis) Brother pacemaker Social History Smoking Status: Never smoker alcohol intake: never substance use type: does not use diet: low salt caffeine: No what type of physical activity do you participate in: none seatbelt use: always do you feel safe at home: Yes HPI back pain : Chief Complaint: R sided low back pain Visit Number: 7 Details: PAULO MILLER is a 82 year old F who presents with increased R sided low back pain. The patient states that over the weekend she unloaded the radio message router and washer with frequent bending and lifting causing increased pain. Today the patient rates her pain a 5/10, she describes it as a tight and sharp ache that radiates across the back and into the buttock. Bending, walking, and twisting all cause increased pain. Paulo denies any numbness, tingling, or radiculopathy. Location: R low back Duration: constant Aggravating or associated factors: walking, bending, twisting Relieving factors: chiro Pain Quality: aching, dull, cramping, sharp, radiating Exam Musc General: Yes deformity (favoring the R leg ), decreased ROM and joint tenderness (T11, T12, L3-L5, R SI joint); no normal posture (flexed antalgia) or normal gait (forward flexed) Thoracic/Lumbar Spine: paraspinal tenderness (R SI ) on the right and on the right greater than left, scoliosis, lumbar spinal tenderness (R SI joint ), straight leg raise positive (R sided ), thor and lumb spine abnorm to inspection (decreased lordosis, flexed antalgia), Lasegue's sign positive on the right, pain with thoraco-lumbar ROM with forward flexion, with rotation to the right, with lateral flexion to the left and with lateral flexion to the right, thoraco-lumbar ROM limited with forward flexion, with lateral flexion to the right, with lateral flexion to the left, with rotation to the left and with rotation to the right, thoraco-lumbar spasm on the right greater than left (QL, piriformis) Sensory Exam/Pin Prick: Right Office Procedures Chiropractic Treatments Procedures Manipulation: 3-4 regions (T11, L3,L5, RIL) Assessment AND Plan 1. Segmental and somatic dysfunction of thoracic region M99.02 Orders Orders: 2. Segmental and somatic dysfunction of pelvic region M99.05 Orders Orders: 3. DDD (degenerative disc disease), lumbar M51.36 Orders Orders: 4. Segmental and somatic dysfunction of lumbar region M99.03 Orders Orders: Plan Detail Goals Decrease pain and radiculopathy Improve gait Barriers DDD Follow Up 1 Week Coding Level of Care Code No Charge Diagnoses Segmental and somatic dysfunction of thoracic region M99.02 Segmental and somatic dysfunction of pelvic region M99.05 DDD (degenerative disc disease), lumbar M51.36 Segmental and somatic dysfunction of lumbar region M99.03 Additional Codes Procedures - Manipulation: 3-4 regions (46935) 03/29/18 0940 <Electronically signed by Cesia Scott D.C.> Date Cesia Scott D.C. Cosigner Signature: Date (if applicable) CC: CHIROPRACTIC REPORT Observed: 03/18/2018 Status: F Source: MALENA 5:03 PM [facility] REPOSITORY [facility] [address] [place] [address] OFFICE VISIT Date of Service: 03/18/18 MR#: [id number] Acct: [id number] Name: PAULO MILLER Rep #: [id number] : 1935 Provider: Cesia Scott D.C. Age/Sex: 82/F [place] [facility] [place]: Signed Intake Vital Signs03/18/18 Height 5 ft 4 in 03/18/18 Weight: 236 lb 03/18/18 Body Mass Index (BMI) 40.5 Intake Visit Reasons: Back pain (pedi) Chief Complaint: back pain Is patient in pain?: Yes Allergies ibuprofen Allergy (Verified 12/28/17 15:34) Unknown Medications Budesonide/Formoterol 160/4.5 [Symbicort 160/4.5 Mcg Inhaler (SP)] 2 puff INHALATION BID 11/24/13 [History Confirmed 12/28/17] Furosemide [Lasix] 40 mg PO DAILY 11/24/13 [History Confirmed 12/28/17] Omeprazole [Prilosec] 20 mg PO DAILY 11/24/13 [History Confirmed 12/28/17] Pravastatin Sodium [Pravachol] 40 mg PO QHS 11/24/13 [History Confirmed 12/28/17] Warfarin [Coumadin] 3 mg PO DAILY 11/24/13 [History Confirmed 12/28/17] Hydrocodone Bitart/Apap 5-325 [Cyclone 5/325] 1 tab PO Q6H PRN PRN #20 tab 04/14/16 [Rx Confirmed 12/28/17] Levothyroxine [Synthroid] 112 mcg PO DAILY 04/14/16 [History Confirmed 12/28/17] Aspirin [Aspirin, Baby] 81 mg PO DAILY@0800 10/20/16 [History Confirmed 12/28/17] Cholecalciferol (Vitamin D3) [Vitamin D3] 5,000 unit PO DAILY 10/20/16 [History Confirmed 12/28/17] Isosorbide Mononitrate [Imdur] 30 mg PO DAILY 10/20/16 [History Confirmed 12/28/17] Methenamine Mandelate 1 tab PO QHS 10/20/16 [History Confirmed 12/28/17] Ascorbic Acid [Vitamin C] 500 mg PO DAILY@0800 05/12/17 [History Confirmed 12/28/17] Cyanocobalamin (Vitamin B-12) [Vitamin B-12] 500 mcg PO DAILY 05/12/17 [History Confirmed 12/28/17] Tiotropium Logan [Spiriva 18 MCG] 1 puff INHALATION DAILY 05/12/17 [History Confirmed 12/28/17] ergocalciferol (vitamin D2) 50,000 unit capsule 50,000 unit PO QWEEK 12/10/17 [History Confirmed 12/28/17] nitroglycerin 0.4 mg sublingual tablet 0.4 mg SUBLINGUAL Q5M PRN 12/10/17 [History Confirmed 12/28/17] acetaminophen 500 mg capsule 500 mg PO Q6H PRN 12/28/17 [History Confirmed 12/28/17] duloxetine 20 mg capsule,delayed release 20 mg PO QDAY #90 cap 12/28/17 [Rx Confirmed 12/28/17] lisinopril 10 mg tablet 10 mg PO QDAY 12/28/17 [History Confirmed 12/28/17] clopidogrel 75 mg tablet 75 mg PO DAILY #90 tab 01/15/18 [Rx] PFSH Medical History DDD (degenerative disc disease), lumbar (Chronic) Dyspnea on exertion (Acute) Palpitations (Acute) Pulmonary hypertension (Chronic) Atherosclerotic heart disease of [place] coronary artery without angina pectoris (Chronic) senior living use of drug (Chronic) Paroxysmal tachycardia (Chronic) Pulmonary embolism (Chronic) VTE (venous thromboembolism) (Chronic) CAD (coronary artery disease) (Chronic) Hyperlipidemia (Chronic) ADAIR (obstructive sleep apnea) (Chronic) Atrial fibrillation (Chronic) COPD (chronic obstructive pulmonary disease) (Chronic) Syncope (Acute) Hypothyroid (Chronic) GERD (gastroesophageal reflux disease) (Chronic) Hypertension (Chronic) Chest pain (Acute) Fatigue (Acute) History of Coumadin therapy (Acute) Syncope and collapse (Acute) Surgical History Presence of stent in coronary artery (Resolved) History of hysterectomy (Resolved) Family History (Reviewed 06/28/18 @ 14:33 by Trinidad Galarza Father Myocardial infarction hx black lung Mother CHF (congestive heart failure) Sister CAD (coronary artery disease) Hx CABG Myocardial infarction Diabetes CHF (congestive heart failure) Brother FH: ALS (amyotrophic lateral sclerosis) Brother pacemaker Social History Smoking Status: Never smoker alcohol intake: never substance use type: does not use diet: low salt caffeine: No what type of physical activity do you participate in: none seatbelt use: always do you feel safe at home: Yes HPI Back pain: Chief Complaint: back pain Visit Number: 7 Details: PAULO MILLER is a 82 year old F who presents with decreased low back pain. She states that since her last treatment her pain has greatly decreased, rating her pain a 2/10. The pain is described as a dull ache that comes and goes, prolonged walking causes increased pain although she is able to lift her legs into the car with no pain. Paulo denies any numbness, tingling or radiculopathy. Location: low back pain Duration: intermittent Aggravating or associated factors: prolonged walking Relieving factors: chiro Pain Quality: aching, dull Exam Musc General: Yes deformity (favoring the R leg ), decreased ROM and joint tenderness (T11, T12, L3-L5, R SI joint); no normal posture (flexed antalgia) or normal gait (forward flexed) Thoracic/Lumbar Spine: paraspinal tenderness (R SI -slightly improved) on the right and on the right greater than left, scoliosis, lumbar spinal tenderness (R SI joint ), straight leg raise positive (R sided ), thor and lumb spine abnorm to inspection (decreased lordosis, flexed antalgia), Lasegue's sign positive on the right, pain with thoraco-lumbar ROM with forward flexion, with rotation to the right, with lateral flexion to the left and with lateral flexion to the right, thoraco-lumbar ROM limited with forward flexion, with lateral flexion to the right, with lateral flexion to the left, with rotation to the left and with rotation to the right, thoraco-lumbar spasm (slightly improved) on the right greater than left (QL, piriformis) Sensory Exam/Pin Prick: Right Office Procedures Chiropractic Treatments Procedures Manipulation: 3-4 regions (T11, L3, L5, RIL) Assessment AND Plan 1. Segmental and somatic dysfunction of thoracic region M99.02 Orders Orders: 2. Segmental and somatic dysfunction of pelvic region M99.05 Orders Orders: 3. DDD (degenerative disc disease), lumbar M51.36 Orders Orders: 4. Segmental and somatic dysfunction of lumbar region M99.03 Orders Orders: Plan Detail Additional Comments Patient is showing positive improvement with acute treatment plan. Goals Decrease pain and radiculopathy Improve gait Barriers DDD Follow Up 1 Week Coding Level of Care Code No Charge Diagnoses Segmental and somatic dysfunction of thoracic region M99.02 Segmental and somatic dysfunction of pelvic region M99.05 DDD (degenerative disc disease), lumbar M51.36 Segmental and somatic dysfunction of lumbar region M99.03 Additional Codes Procedures - Manipulation: 3-4 regions (17448) 03/18/18 1703 <Electronically signed by Cesia Scott D.C.> Date Cesia Scott D.C. Cosigner Signature: Date (if applicable) CC: CHIROPRACTIC REPORT Observed: 03/16/2018 Status: F Source: PROCTOR 10:26 AM [facility] [id number] OFFICE VISIT Date of Service: 03/11/18 MR#: [id number] Acct: [id number] Name: PAULO MILLER Rep #: [id number] : 1935 Provider: Cesia Scott D.C. Age/Sex: 82/F [place] [facility] [place]: Signed Intake Vital Signs03/11/18 Height 5 ft 4 in 03/11/18 Weight: 236 lb 03/11/18 Body Mass Index (BMI) 40.5 Intake Visit Reasons: back pain Chief Complaint: R sided low back pain Is patient in pain?: Yes Allergies ibuprofen Allergy (Verified 12/28/17 15:34) Unknown Medications Budesonide/Formoterol 160/4.5 [Symbicort 160/4.5 Mcg Inhaler (SP)] 2 puff INHALATION BID 11/24/13 [History Confirmed 12/28/17] Furosemide [Lasix] 40 mg PO DAILY 11/24/13 [History Confirmed 12/28/17] Omeprazole [Prilosec] 20 mg PO DAILY 11/24/13 [History Confirmed 12/28/17] Pravastatin Sodium [Pravachol] 40 mg PO QHS 11/24/13 [History Confirmed 12/28/17] Warfarin [Coumadin] 3 mg PO DAILY 11/24/13 [History Confirmed 12/28/17] Hydrocodone Bitart/Apap 5-325 [Cyclone 5/325] 1 tab PO Q6H PRN PRN #20 tab 04/14/16 [Rx Confirmed 12/28/17] Levothyroxine [Synthroid] 112 mcg PO DAILY 04/14/16 [History Confirmed 12/28/17] Aspirin [Aspirin, Baby] 81 mg PO DAILY@0800 10/20/16 [History Confirmed 12/28/17] Cholecalciferol (Vitamin D3) [Vitamin D3] 5,000 unit PO DAILY 10/20/16 [History Confirmed 12/28/17] Isosorbide Mononitrate [Imdur] 30 mg PO DAILY 10/20/16 [History Confirmed 12/28/17] Methenamine Mandelate 1 tab PO QHS 10/20/16 [History Confirmed 12/28/17] Ascorbic Acid [Vitamin C] 500 mg PO DAILY@0800 05/12/17 [History Confirmed 12/28/17] Cyanocobalamin (Vitamin B-12) [Vitamin B-12] 500 mcg PO DAILY 05/12/17 [History Confirmed 12/28/17] Tiotropium Logan [Spiriva 18 MCG] 1 puff INHALATION DAILY 05/12/17 [History Confirmed 12/28/17] ergocalciferol (vitamin D2) 50,000 unit capsule 50,000 unit PO QWEEK 12/10/17 [History Confirmed 12/28/17] nitroglycerin 0.4 mg sublingual tablet 0.4 mg SUBLINGUAL Q5M PRN 12/10/17 [History Confirmed 12/28/17] acetaminophen 500 mg capsule 500 mg PO Q6H PRN 12/28/17 [History Confirmed 12/28/17] duloxetine 20 mg capsule,delayed release 20 mg PO QDAY #90 cap 12/28/17 [Rx Confirmed 12/28/17] lisinopril 10 mg tablet 10 mg PO QDAY 12/28/17 [History Confirmed 12/28/17] clopidogrel 75 mg tablet 75 mg PO DAILY #90 tab 01/15/18 [Rx] [facility] Medical History DDD (degenerative disc disease), lumbar (Chronic) Dyspnea on exertion (Acute) Palpitations (Acute) Pulmonary hypertension (Chronic) Atherosclerotic heart disease of [place] coronary artery without angina pectoris (Chronic) 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) Paroxysmal tachycardia (Chronic) Pulmonary embolism (Chronic) VTE (venous thromboembolism) (Chronic) CAD (coronary artery disease) (Chronic) Hyperlipidemia (Chronic) ADAIR (obstructive sleep apnea) (Chronic) Atrial fibrillation (Chronic) COPD (chronic obstructive pulmonary disease) (Chronic) Syncope (Acute) Hypothyroid (Chronic) GERD (gastroesophageal reflux disease) (Chronic) Hypertension (Chronic) Chest pain (Acute) Fatigue (Acute) History of Coumadin therapy (Acute) Syncope and collapse (Acute) Surgical History Presence of stent in coronary artery (Resolved) History of hysterectomy (Resolved) Family History Father Myocardial infarction hx black lung Mother CHF (congestive heart failure) Sister CAD (coronary artery disease) Hx CABG Myocardial infarction Diabetes CHF (congestive heart failure) Brother FH: ALS (amyotrophic lateral sclerosis) Brother pacemaker Social History Smoking Status: Never smoker alcohol intake: never substance use type: does not use diet: low salt caffeine: No what type of physical activity do you participate in: none seatbelt use: always do you feel safe at home: Yes HPI back pain : Chief Complaint: back pain Visit Number: 6 Details: PAULO MILLER is a 82 year old F who presents with L sided low back pain. She states that recently her pain has decreased denying any pain radiating into the leg, the pain is staying localized to the low back and does band across. Prolonged walking, lifting, and bending cause increased pain although she states she is having a easier time lifting her legs. Today Paulo rates her pain a 3/10 and describes it as a dull ache that comes and goes, she denies any numbness or tingling. Location: low back Duration: constant Aggravating or associated factors: bending. lifting, and prolonged walking Relieving factors: chiro Pain Quality: aching, dull, cramping Exam Musc General: Yes deformity (favoring the R leg ), decreased ROM and joint tenderness (T11, T12, L3-L5, R SI joint); no normal posture (flexed antalgia) or normal gait (forward flexed) Thoracic/Lumbar Spine: paraspinal tenderness (R SI -slightly improved) on the right and on the right greater than left, scoliosis, lumbar spinal tenderness (R SI joint ), straight leg raise positive (R sided ), thor and lumb spine abnorm to inspection (decreased lordosis, flexed antalgia), Lasegue's sign positive on the right, pain with thoraco-lumbar ROM with forward flexion, with rotation to the right, with lateral flexion to the left and with lateral flexion to the right, thoraco-lumbar ROM limited with forward flexion, with lateral flexion to the right, with lateral flexion to the left, with rotation to the left and with rotation to the right, thoraco-lumbar spasm (slightly improved) on the right greater than left (QL, piriformis) Sensory Exam/Pin Prick: Right Office Procedures Chiropractic Treatments Procedures Manipulation: 3-4 regions (T11, L3, L5, RIL) Assessment AND Plan 1. Segmental and somatic dysfunction of thoracic region M99.02 Orders Orders: 2. Segmental and somatic dysfunction of pelvic region M99.05 Orders Orders: 3. DDD (degenerative disc disease), lumbar M51.36 Orders Orders: 4. Segmental and somatic dysfunction of lumbar region M99.03 Orders Orders: Plan Detail Goals Decrease pain and radiculopathy Improve gait Barriers DDD Follow Up 1 x week Coding Level of Care Code No Charge Diagnoses Segmental and somatic dysfunction of thoracic region M99.02 Segmental and somatic dysfunction of pelvic region M99.05 DDD (degenerative disc disease), lumbar M51.36 Segmental and somatic dysfunction of lumbar region M99.03 Additional Codes Procedures - Manipulation: 3-4 regions (21671) 03/16/18 1026 <Electronically signed by Cesia Scott D.C.> Date Cesia Scott D.C. Cosigner Signature: Date (if applicable) CC: CHIROPRACTIC REPORT Observed: 03/04/2018 Status: F Source: [place] 3:35 PM [facility] Chiropractic [address] [place] [address] OFFICE VISIT Date of Service: 03/04/18 MR#: [id number] Acct: [id number] Name: PAULO MILLER Rep #: [id number] : 1935 Provider: Cesia Scott D.C. Age/Sex: 82/F [place] [facility] [place]: Signed Intake Vital Signs03/04/18 Height 5 ft 4 in 03/04/18 Weight: 236 lb 03/04/18 Body Mass Index (BMI) 40.5 Intake Visit Reasons: back pain Chief Complaint: R sided low back pain Is patient in pain?: Yes Allergies ibuprofen Allergy (Verified 12/28/17 15:34) Unknown Medications Budesonide/Formoterol 160/4.5 [Symbicort 160/4.5 Mcg Inhaler (SP)] 2 puff INHALATION BID 11/24/13 [History Confirmed 12/28/17] Furosemide [Lasix] 40 mg PO DAILY 11/24/13 [History Confirmed 12/28/17] Omeprazole [Prilosec] 20 mg PO DAILY 11/24/13 [History Confirmed 12/28/17] Pravastatin Sodium [Pravachol] 40 mg PO QHS 11/24/13 [History Confirmed 12/28/17] Warfarin [Coumadin] 3 mg PO DAILY 11/24/13 [History Confirmed 12/28/17] Hydrocodone Bitart/Apap 5-325 [Cyclone 5/325] 1 tab PO Q6H PRN PRN #20 tab 04/14/16 [Rx Confirmed 12/28/17] Levothyroxine [Synthroid] 112 mcg PO DAILY 04/14/16 [History Confirmed 12/28/17] Aspirin [Aspirin, Baby] 81 mg PO DAILY@0800 10/20/16 [History Confirmed 12/28/17] Cholecalciferol (Vitamin D3) [Vitamin D3] 5,000 unit PO DAILY 10/20/16 [History Confirmed 12/28/17] Isosorbide Mononitrate [Imdur] 30 mg PO DAILY 10/20/16 [History Confirmed 12/28/17] Methenamine Mandelate 1 tab PO QHS 10/20/16 [History Confirmed 12/28/17] Ascorbic Acid [Vitamin C] 500 mg PO DAILY@0800 05/12/17 [History Confirmed 12/28/17] Cyanocobalamin (Vitamin B-12) [Vitamin B-12] 500 mcg PO DAILY 05/12/17 [History Confirmed 12/28/17] Tiotropium Logan [Spiriva 18 MCG] 1 puff INHALATION DAILY 05/12/17 [History Confirmed 12/28/17] ergocalciferol (vitamin D2) 50,000 unit capsule 50,000 unit PO QWEEK 12/10/17 [History Confirmed 12/28/17] nitroglycerin 0.4 mg sublingual tablet 0.4 mg SUBLINGUAL Q5M PRN 12/10/17 [History Confirmed 12/28/17] acetaminophen 500 mg capsule 500 mg PO Q6H PRN 12/28/17 [History Confirmed 12/28/17] duloxetine 20 mg capsule,delayed release 20 mg PO QDAY #90 cap 12/28/17 [Rx Confirmed 12/28/17] lisinopril 10 mg tablet 10 mg PO QDAY 12/28/17 [History Confirmed 12/28/17] clopidogrel 75 mg tablet 75 mg PO DAILY #90 tab 01/15/18 [Rx] [facility] Medical History DDD (degenerative disc disease), lumbar (Chronic) Dyspnea on exertion (Acute) Palpitations (Acute) Pulmonary hypertension (Chronic) Atherosclerotic heart disease of [place] coronary artery without angina pectoris (Chronic) senior living use of drug (Chronic) Paroxysmal tachycardia (Chronic) Pulmonary embolism (Chronic) VTE (venous thromboembolism) (Chronic) CAD (coronary artery disease) (Chronic) Hyperlipidemia (Chronic) ADAIR (obstructive sleep apnea) (Chronic) Atrial fibrillation (Chronic) COPD (chronic obstructive pulmonary disease) (Chronic) Syncope (Acute) Hypothyroid (Chronic) GERD (gastroesophageal reflux disease) (Chronic) Hypertension (Chronic) Chest pain (Acute) Fatigue (Acute) History of Coumadin therapy (Acute) Syncope and collapse (Acute) Surgical History Presence of stent in coronary artery (Resolved) History of hysterectomy (Resolved) Family History Father Myocardial infarction hx black lung Mother CHF (congestive heart failure) Sister CAD (coronary artery disease) Hx CABG Myocardial infarction Diabetes CHF (congestive heart failure) Brother FH: ALS (amyotrophic lateral sclerosis) Brother pacemaker Social History Smoking Status: Never smoker alcohol intake: never substance use type: does not use diet: low salt caffeine: No what type of physical activity do you participate in: none seatbelt use: always do you feel safe at home: Yes HPI back pain : Chief Complaint: back pain Visit Number: 5 Details: PAULO MILLER is an 82 year old F who presents with decreased R sided low back pain. She states that she is no longer experiencing a grinding sensation near the hip, and when walking is not experiencing the pain when applying pressure to the leg. Today the patient rates her pain a 3/10 and describes it as tight ache across the low back. At times it does increase with bending and leaning forward. Paulo denies any numbness, tingling, or radiculopathy. Location: R low back Duration: intermittent Aggravating or associated factors: twisting and leaning forward Relieving factors: chiro Pain Quality: aching, dull, sharp Exam Musc General: Yes deformity (favoring the R leg ), decreased ROM and joint tenderness (T11, T12, L3-L5, R SI joint); no normal posture (flexed antalgia) or normal gait (forward flexed) Thoracic/Lumbar Spine: paraspinal tenderness (R SI ) on the right and on the right greater than left, scoliosis, lumbar spinal tenderness (R SI joint ), straight leg raise positive (R sided ), thor and lumb spine abnorm to inspection (decreased lordosis, flexed antalgia), Lasegue's sign positive on the right, pain with thoraco-lumbar ROM with forward flexion, with rotation to the right, with lateral flexion to the left and with lateral flexion to the right, thoraco-lumbar ROM limited with forward flexion, with lateral flexion to the right, with lateral flexion to the left, with rotation to the left and with rotation to the right, thoraco-lumbar spasm on the right greater than left (QL, piriformis) Sensory Exam/Pin Prick: Right Office Procedures Chiropractic Treatments Procedures Manipulation: 3-4 regions (T11, L3, L5, RIL) Traction, Mechanical: Yes Details: Lumbar traction 15 min Assessment AND Plan 1. Segmental and somatic dysfunction of thoracic region M99.02 Orders Orders: 2. Segmental and somatic dysfunction of pelvic region M99.05 Orders Orders: 3. DDD (degenerative disc disease), lumbar M51.36 Orders Orders: 4. Segmental and somatic dysfunction of lumbar region M99.03 Orders Orders: Plan Detail Additional Comments Reviewed xray findings with patient. She is showing positive improvement. Continue with acute care treatment plan at a frequency of 1-2 visits/week. Goals Decrease pain and radiculopathy Improve gait Barriers DDD Follow Up 1 x week Coding Level of Care Code No Charge Diagnoses Segmental and somatic dysfunction of thoracic region M99.02 Segmental and somatic dysfunction of pelvic region M99.05 DDD (degenerative disc disease), lumbar M51.36 Segmental and somatic dysfunction of lumbar region M99.03 Additional Codes Procedures - Manipulation: 3-4 regions (31844) Procedures - Traction, Mechanical: Yes (34601) 03/04/18 1535 <Electronically signed by Cesia Scott D.C.> Date Cesia Scott D.C. Cosigner Signature: Date (if applicable) CC: CHIROPRACTIC REPORT Observed: 03/04/2018 Status: F Source: [place] 12:01 PM [facility] Chiropractic [address] [place] [address] OFFICE VISIT Date of Service: 02/18/18 MR#: [id number] Acct: [id number] Name: PAULO MILLER Rep #: [id number] : 1935 Provider: Cesia Scott D.C. Age/Sex: 82/F [place] [facility] [place] Status: Signed Intake Vital Signs02/18/18 Height 5 ft 4 in 02/18/18 Weight: 236 lb 02/18/18 Body Mass Index (BMI) 40.5 Intake Visit Reasons: back pain Is patient in pain?: Yes Allergies ibuprofen Allergy (Verified 12/28/17 15:34) Unknown Medications Budesonide/Formoterol 160/4.5 [Symbicort 160/4.5 Mcg Inhaler (SP)] 2 puff INHALATION BID 11/24/13 [History Confirmed 12/28/17] Furosemide [Lasix] 40 mg PO DAILY 11/24/13 [History Confirmed 12/28/17] Omeprazole [Prilosec] 20 mg PO DAILY 11/24/13 [History Confirmed 12/28/17] Pravastatin Sodium [Pravachol] 40 mg PO QHS 11/24/13 [History Confirmed 12/28/17] Warfarin [Coumadin] 3 mg PO DAILY 11/24/13 [History Confirmed 12/28/17] Hydrocodone Bitart/Apap 5-325 [Cyclone 5/325] 1 tab PO Q6H PRN PRN #20 tab 04/14/16 [Rx Confirmed 12/28/17] Levothyroxine [Synthroid] 112 mcg PO DAILY 04/14/16 [History Confirmed 12/28/17] Aspirin [Aspirin, Baby] 81 mg PO DAILY@0800 10/20/16 [History Confirmed 12/28/17] Cholecalciferol (Vitamin D3) [Vitamin D3] 5,000 unit PO DAILY 10/20/16 [History Confirmed 12/28/17] Isosorbide Mononitrate [Imdur] 30 mg PO DAILY 10/20/16 [History Confirmed 12/28/17] Methenamine Mandelate 1 tab PO QHS 10/20/16 [History Confirmed 12/28/17] Ascorbic Acid [Vitamin C] 500 mg PO DAILY@0800 05/12/17 [History Confirmed 12/28/17] Cyanocobalamin (Vitamin B-12) [Vitamin B-12] 500 mcg PO DAILY 05/12/17 [History Confirmed 12/28/17] Tiotropium Logan [Spiriva 18 MCG] 1 puff INHALATION DAILY 05/12/17 [History Confirmed 12/28/17] ergocalciferol (vitamin D2) 50,000 unit capsule 50,000 unit PO QWEEK 12/10/17 [History Confirmed 12/28/17] nitroglycerin 0.4 mg sublingual tablet 0.4 mg SUBLINGUAL Q5M PRN 12/10/17 [History Confirmed 12/28/17] acetaminophen 500 mg capsule 500 mg PO Q6H PRN 12/28/17 [History Confirmed 12/28/17] duloxetine 20 mg capsule,delayed release 20 mg PO QDAY #90 cap 12/28/17 [Rx Confirmed 12/28/17] lisinopril 10 mg tablet 10 mg PO QDAY 12/28/17 [History Confirmed 12/28/17] clopidogrel 75 mg tablet 75 mg PO DAILY #90 tab 01/15/18 [Rx] PFSH Medical History DDD (degenerative disc disease), lumbar (Chronic) Dyspnea on exertion (Acute) Palpitations (Acute) Pulmonary hypertension (Chronic) Atherosclerotic heart disease of [place] coronary artery without angina pectoris (Chronic) senior living use of drug (Chronic) Paroxysmal tachycardia (Chronic) Pulmonary embolism (Chronic) VTE (venous thromboembolism) (Chronic) CAD (coronary artery disease) (Chronic) Hyperlipidemia (Chronic) ADAIR (obstructive sleep apnea) (Chronic) Atrial fibrillation (Chronic) COPD (chronic obstructive pulmonary disease) (Chronic) Syncope (Acute) Hypothyroid (Chronic) GERD (gastroesophageal reflux disease) (Chronic) Hypertension (Chronic) Chest pain (Acute) Fatigue (Acute) History of Coumadin therapy (Acute) Syncope and collapse (Acute) Surgical History Presence of stent in coronary artery (Resolved) History of hysterectomy (Resolved) Family History Father Myocardial infarction hx black lung Mother CHF (congestive heart failure) Sister CAD (coronary artery disease) Hx CABG Myocardial infarction Diabetes CHF (congestive heart failure) Brother FH: ALS (amyotrophic lateral sclerosis) Brother pacemaker Social History Smoking Status: Never smoker alcohol intake: never substance use type: does not use diet: low salt caffeine: No what type of physical activity do you participate in: none seatbelt use: always do you feel safe at home: Yes HPI back pain : Chief Complaint: R sided low back pain Visit Number: 1 Referral source: Dr. Hope Details: PAULO MILLER is a 82 year old F who presents with R sided low back pain. She states that pain has been ongoing for roughly 3 weeks, the patient has been doing a lot of walking, and sleeping in a chair which she feels contributes to the increased pain. The pain is described as a sharp shooting that does radiates into the the R leg all the way to the ankle. Walking, standing, and applying pressure to the R leg causes severe pain. She also states that there is some weakness in the R leg. The patient does present with a walker while walking, she states that she is having a hard time getting in and out of the car and shower due to the pain and weakness and leg. Onset: 01/28/18 Location: R low back Duration: constant Aggravating or associated factors: walking, flexing, and applying pressure to the R leg Relieving factors: none Pain Quality: aching, dull, cramping, sharp, radiating Exam Musc General: Yes deformity (favoring the R leg ), decreased ROM and joint tenderness (T11, T12, L3-L5, R SI joint); no normal posture (flexed antalgia) or normal gait (forward flexed) Thoracic/Lumbar Spine: paraspinal tenderness (R SI ) on the right and on the right greater than left, scoliosis, lumbar spinal tenderness (R SI joint ), straight leg raise positive (R sided ), thor and lumb spine abnorm to inspection (decreased lordosis, flexed antalgia), Lasegue's sign positive on the right, pain with thoraco-lumbar ROM with forward flexion, with rotation to the right, with lateral flexion to the left and with lateral flexion to the right, thoraco-lumbar ROM limited with forward flexion, with lateral flexion to the right, with lateral flexion to the left, with rotation to the left and with rotation to the right, thoraco-lumbar spasm on the right greater than left (QL, piriformis) Sensory Exam/Pin Prick: Right Neuro General: alert, awake, oriented, moves all extremities Motor: strength not 5/5 throughout (4/5 R Lower extremity, 5/5 L lower extremity) Sensory Exam: no sensory deficits noted DTR's: Rt Patellar: 1+, Lt Patellar: 1+, Rt Ankle: 1+, Lt Ankle: 1+ Ortho Test CERVICAL THORACIC LUMBAR Kemps: Positive, Rig Valsalvas: Negative SLR: Positive, Rig Braggards: Positive, Rig Iliac Compression: Positive, Rig Assessment AND Plan Problems 1. Segmental and somatic dysfunction of lumbar region M99.03 2. DDD (degenerative disc disease), lumbar M51.36 3. Segmental and somatic dysfunction of pelvic region M99.05 4. Segmental and somatic dysfunction of thoracic region M99.02 Plan Recommend acute care treatment plan: 2x/wk/2-3 weeks Orders Orders: Plan Detail Goals Decrease pain and radiculopathy Improve gait Barriers DDD Follow Up 2x/wk/2-3 weeks Coding Level of Care Code Off vis,new,level 3 Diagnoses Segmental and somatic dysfunction of lumbar region M99.03 DDD (degenerative disc disease), lumbar M51.36 Segmental and somatic dysfunction of pelvic region M99.05 Segmental and somatic dysfunction of thoracic region M99.02 03/04/18 1201 <Electronically signed by Cesia Scott D.C.> Date Cesia Scott D.C. Cosigner Signature: Date (if applicable) CC: ECHOCARDIOGRAM COMPLETE Observed: 12/30/2017 Status: F Source: [place] 5:36 PM [facility] REPOSITORY [facility] Cardiovascular Services [address] [place] [address] Echo Complete 12/30/17 1304 MR#: [id number] Acct: [id number] Name: PAULO MILLER Rep #: [id number] : 1935 82 From: Sonny Person MD Attending Dr: Bernard Bethea, STAGE ELECTRICIAN Status: REG CLI Ordering Dr: Bernard Bethea STAGE ELECTRICIAN-C Date: 12/30/17 Location: [facility] Sex: F C Admitted: Reason For Study: Dyspnea/SOB Procedure This was a 2D Doppler, Color Flow transthoracic echocardiogram. The study was technically difficult. Did not use Definity due to increased PAP. Exam performed in department. Left Ventricle Normal LV size. Left ventricular systolic function is normal. The estimated ejection fraction is 55 %. Transmitral diastolic flow velocities suggest mild (stage 1) diastolic dysfunction (reversed pattern). No regional wall motion abnormalities noted. Right Ventricle Normal RV size. Normal systolic function. Atria Normal left atrium. Normal right atrium. Mitral Valve Normal mitral valve. Trivial eccentric mitral valve insufficiency. Tricuspid Valve Normal tricuspid valve. Mild (1+) tricuspid valve insufficiency. Pulmonary artery systolic pressure is 63 mmHg. Moderate pulmonary hypertension. Aortic Valve Trisinus/trileaflet aortic valve. Mild focal aortic valve calcification. Pulmonic Valve Normal pulmonic valve. Great Vessels Normal aortic root. The pulmonary artery is normal size. Normal inferior vena cava. Pericardium/Pleural No pericardial effusion. MMode/2D Measurements AND Calculations LVIDd: 4.4 cm IVSd: 0.77 cm Ao root diam: 2.9 cm LVIDs: 2.8 cm LVPWd: 0.80 cm LA dimension: 4.0 cm RVDd: 3.3 cm FS: 36.0 % LAV(MOD-bp): 39.2 ml LA A4 area: 15.3 cm2 RA A4 area: 13.8 cm2 LAV(MOD-bp) Indexed: 18.9 ml/m2 LAV(MOD-sp2): 42.3 ml LAV(MOD-sp4): 35.8 ml Doppler Measurements AND Calculations MV E max reji: 83.9 cm/sec Lat Peak E' Reji: 7.4 cm/sec Med Peak E' Reji: 7.7 cm/sec MV A max reji: 105.0 cm/sec E/E' lat: 11.4 E/E' med: 10.8 MV E/A: 0.80 Ao V2 max: 138.4 cm/sec LV V1 max: 106.4 cm/sec PA V2 max: 93.5 cm/sec Ao max P.7 mmHg LV V1 max P.5 mmHg Ao V2 mean: 108.3 cm/sec Ao mean P.0 mmHg Ao V2 VTI: 27.7 cm TR max reji: 383.6 cm/sec TR max P.9 mmHg Interpretation Summary Normal LV size. Left ventricular systolic function is normal. The estimated ejection fraction is 55 %. Transmitral diastolic flow velocities suggest mild (stage 1) diastolic dysfunction (reversed pattern). Pulmonary artery systolic pressure is 63 mmHg. Moderate pulmonary hypertension. Ordering Physician: Bernard Bethea Referring Physician: Aditya Hope Chi Performed By: Christiane Bethea RDCS, RVT 12/30/17 1735 Date Sonny Person MD CC: HAMLET Bethae; Aditya Hope MD Date Dictated: 12/30/17 1304 Date Transcribed: 12/30/17 3495 Supervisor Publications: Signed CARDIOLOGY VISIT Observed: 12/30/2017 Status: F Source: MALENA REPORT 8:22 AM [facility] REPOSITORY [facility] [address] [place] [address] OFFICE VISIT Date of Service: 12/28/17 MR#: [id number] Acct: [id number] Name: PAULO MILLER Rep #: [id number] : 1935 Provider: HAMLET Bethea Age/Sex: 82/F Location: [facility] Status: Signed HPI HPI Details: PAULO MILLER, is a 82 F who presents to the office today for a cardiovascular outpatient follow-up. She has history of coronary artery disease status post angioplasty and stenting to her LAD with 80% proximal stenosis and severe residual disease noted in RCA in November 2013 and previous pulmonary emboli/DVT. Pt. denies chest, arm, jaw, or neck discomfort. Her exercise tolerance is stable by walking with her walker. Pt. denies symptoms of near syncope, or syncopal episodes. Pt. denies worsening edema or claudication issues. Pt. denies orthopnea, PND, fever, chills, blood in urine, blood in stool, or myalgia. Patient state two months ago she notices an episode of palpitations as if her heart was going to jump out. This occurred again two weeks ago. She denies any secondary symptoms with either episode. There was no known aggrivating or relieving factors. She states dyspnea on exertion since being diagnosed with bronchitis three weeks ago. Patient states lightheadedness and dizziness with quick position changes. She states an increase in fatigue since last office visit. Intake Vital Signs12/28/17 Height 5 ft 4 in 12/28/17 Weight: 236 lb 12/28/17 Body Mass Index (BMI) 40.5 12/28/17 Blood Pressure 110/80 12/28/17 Blood Pressure Location Lt brachial Intake Visit Reasons: 6 M FU (pt r/s from [facility] 3) Pigs Feet Cleaner Required: No Accompanied by: none Is patient in pain?: No Allergies ibuprofen Allergy (Verified 12/28/17 15:34) Unknown Medications Budesonide/Formoterol 160/4.5 [Symbicort 160/4.5 Mcg Inhaler (SP)] 2 puff INHALATION BID 11/24/13 [History Confirmed 12/28/17] Furosemide [Lasix] 40 mg PO DAILY 11/24/13 [History Confirmed 12/28/17] Omeprazole [Prilosec] 20 mg PO DAILY 11/24/13 [History Confirmed 12/28/17] Pravastatin Sodium [Pravachol] 40 mg PO QHS 11/24/13 [History Confirmed 12/28/17] Warfarin [Coumadin] 3 mg PO DAILY 11/24/13 [History Confirmed 12/28/17] Hydrocodone Bitart/Apap 5-325 [Cyclone 5/325] 1 tab PO Q6H PRN PRN #20 tab 04/14/16 [Rx Confirmed 12/28/17] Levothyroxine [Synthroid] 112 mcg PO DAILY 04/14/16 [History Confirmed 12/28/17] Aspirin [Aspirin, Baby] 81 mg PO DAILY@0800 10/20/16 [History Confirmed 12/28/17] Cholecalciferol (Vitamin D3) [Vitamin D3] 5,000 unit PO DAILY 10/20/16 [History Confirmed 12/28/17] Clopidogrel Bisulfate [Plavix] 75 mg PO DAILY 10/20/16 [History Confirmed 12/28/17] Isosorbide Mononitrate [Imdur] 30 mg PO DAILY 10/20/16 [History Confirmed 12/28/17] Methenamine Mandelate 1 tab PO QHS 10/20/16 [History Confirmed 12/28/17] Ascorbic Acid [Vitamin C] 500 mg PO DAILY@0800 05/12/17 [History Confirmed 12/28/17] Cyanocobalamin (Vitamin B-12) [Vitamin B-12] 500 mcg PO DAILY 05/12/17 [History Confirmed 12/28/17] Tiotropium Logan [Spiriva 18 MCG] 1 puff INHALATION DAILY 05/12/17 [History Confirmed 12/28/17] ergocalciferol (vitamin D2) 50,000 unit capsule 50,000 unit PO QWEEK 12/10/17 [History Confirmed 12/28/17] nitroglycerin 0.4 mg sublingual tablet 0.4 mg SUBLINGUAL Q5M PRN 12/10/17 [History Confirmed 12/28/17] acetaminophen 500 mg capsule 500 mg PO Q6H PRN 12/28/17 [History Confirmed 12/28/17] duloxetine 20 mg capsule,delayed release 20 mg PO QDAY #90 cap 12/28/17 [Rx Confirmed 12/28/17] lisinopril 10 mg tablet 10 mg PO QDAY 12/28/17 [History Confirmed 12/28/17] Ejection fraction %: 65 to 70 PFSH Medical History Dyspnea on exertion (Acute) Palpitations (Acute) Pulmonary hypertension (Chronic) Atherosclerotic heart disease of [place] coronary artery without angina pectoris (Chronic) 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) Paroxysmal tachycardia (Chronic) Pulmonary embolism (Chronic) VTE (venous thromboembolism) (Chronic) CAD (coronary artery disease) (Chronic) Hyperlipidemia (Chronic) ADAIR (obstructive sleep apnea) (Chronic) Atrial fibrillation (Chronic) COPD (chronic obstructive pulmonary disease) (Chronic) Syncope (Acute) Hypothyroid (Chronic) GERD (gastroesophageal reflux disease) (Chronic) Hypertension (Chronic) Chest pain (Acute) Fatigue (Acute) History of Coumadin therapy (Acute) Syncope and collapse (Acute) Surgical History Presence of stent in coronary artery (Resolved) History of hysterectomy (Resolved) Family History Father Myocardial infarction hx black lung Mother CHF (congestive heart failure) Sister CAD (coronary artery disease) Hx CABG Myocardial infarction Diabetes CHF (congestive heart failure) Brother FH: ALS (amyotrophic lateral sclerosis) Brother pacemaker Social History Smoking Status: Never smoker alcohol intake: never substance use type: does not use diet: low salt caffeine: No what type of physical activity do you participate in: none seatbelt use: always do you feel safe at home: Yes ROS Const Const: Positive for fatigue; negative for weakness, body ache, fever(s) or chills ENT ENT: Positive for dizziness Cardio Chest Pain: No Palpitations: Yes Edema: None, Bilateral Muscle aches with walking: None Resp Respiratory: Negative for SOB with activity, SOB at rest, SOB orthopnea\SOB lying down or paroxysmal nocturnal dyspnea GI GI: Negative nausea, black,tarry stools, bright, red blood in stools or vomiting blood/hematemesis : Negative for hematuria or frequent nighttime urination/ nocturia Musc Musc: Negative for muscle aches/ myalgia Neuro Neuro: Positive for dizziness and lightheadedness; negative for weakness, near syncope, syncope or orthostatic symptoms Endo Endo: Positive for fatigue Cardiology Exam Const Appearance: cooperative, healthy appearing, comfortable and no acute distress Orientation: alert, awake and oriented x3 Head Head: normal to inspection Mouth: oral mucosae normal Neck Neck: no JVD and normal visual inspection Carotids: normal carotid upstroke Chest Chest inspection: normal inspection of the chest and normal respiratory effort Auscultation: Bilateral: Clear to Auscultation Cardio Rate: regular rate Rhythm: regular rhythm Heart sounds: S1 normal and S2 normal; negative rub or gallop GI GI: normal to inspection Neuro General: alert, awake, oriented x3 and CN's II-XI intact bilaterally Skin Skin: no rashes or lesions noted Extremities Pulses: Normal: Right Radial Pulse, Left Radial Pulse, Diminished: Right Posterior Tibial Pulse, Left Posterior Tibial Pulse Lower Extremity Edema: +2: Bilateral Psych Psychological: normal affect Supplemental Info Stress test from April 2015 was negative for stress-induced myocardial ischemia, though there was significant inferior GI diaphragmatic attenuation. Ejection fraction was noted to be preserved. Echocardiogram from November 2014 showed an estimated ejection fraction of 60%. Heart catheterization from November 2013 resulted in successful drug-eluting stent 85% stenosis of proximal LAD. There was also noted to be 50% stenosis in mid LCx with fractional flow reserve of 0.88, which is not hemodynamically significant, 60% stenosis of mid posterior descending artery, and 60% stenosis of distal RCA. Assessment AND Plan 1. Palpitations R00.2 Plan - NALINI Bueno Patient states 2 episodes of palpitations over the last 2 months. She will undergo a 30 day event monitor for further evaluation. If it shows concerning of atrial fibrillation patient is already on anticoagulation. Given her extensive cardiovascular disease other dysrhythmia will be important to exclude. We will wait for the results of the 30 day event monitor for further recommendation. Patient will continue current medications. 2. Dyspnea on exertion R06.09 Plan - NALINI Bueno Echocardiogram from November 2014 should an estimate ejection fraction of 60%. Patient describes dyspnea on exertion. She states several weeks ago she developed bronchitis and has not recovered. Since this is not improved, she will undergo a repeat echocardiogram for further evaluation. We will wait for the results of the echocardiogram for further recommendation. Orders Orders: 3. Atherosclerosis of [place] coronary artery of [place] heart without angina pectoris I25.10 STEFANIA to prox LAD November 2013 @ [facility] Plan - NALINI Bueno Stress test from April 2015 was negative for stress-induced myocardial ischemia. Her catheterization from November 2013 resulted in successful drug- eluting stent to proximal LAD. There was noted to be 50% stenosis of the LCx, 60% stenosis in mid posterior descending artery and 60% stenosis, and distal RCA. Patient denies any chest, left arm, jaw, or neck pain. Depending on echocardiogram results and patient's symptoms she may need to undergo a stress test to rule out any ischemic component d/t increase in fatigue. We will wait for the results of the echocardiogram and 30 day event monitor before proceeding. Orders Orders: 4. Essential hypertension I10 Plan - NALINI Bueno Patient's blood pressure is well-controlled today in the office. We will continue to monitor this. We will not make any medication regimen changes. 5. Other pulmonary embolism without acute cor pulmonale, unspecified chronicity I26.99 Plan - NALINI Bueno Patient's shortness of breath appears to be gradual since onset of bronchitis several weeks ago. She is currently on Coumadin therapy. We will continue to monitor this. 6. Pure hypercholesterolemia E78.00; E78.0 Plan - NALINI Bueno Patient states is being monitored by primary care physician. Patient will continue current cholesterol-lowering medication. Plan Detail Other Orders Orders: Other Medications New: Discontinued: lisinopril take daily in the AM Discontinued Reason: 20 mg PO DAILY blood pressure Pt no longer taking Additional Comments - NALINI Bueno Discussed the above patient with Dr. Person, he agrees with the plan of care. Thank you for allowing us to participate in the patients plan of care, if you have any questions please do not hesitate to call. This note was generated using a voice recognition system and there may be incorrect words, spelling or punctuation that were not noted when reviewing the office note prior to saving. 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 transplanted heart: [place] heart Essential hypertension I10 Hypertension type: essential hypertension Other pulmonary embolism without acute cor pulmonale, unspecified chronicity I26.99 Acute cor pulmonale presence: without acute cor pulmonale Chronicity: unspecified Pulmonary embolism type: other Pure hypercholesterolemia E78.00; E78.0 Hyperlipidemia type: pure hypercholesterolemia Coding Level of Care Code Off vis,est,level 3 Diagnoses Palpitations R00.2 Dyspnea on exertion R06.09 Atherosclerosis of [place] coronary artery of [place] heart without angina pectoris I25.10 [place] vs. transplanted heart: [place] heart Essential hypertension I10 Hypertension type: essential hypertension Other pulmonary embolism without acute cor pulmonale, unspecified chronicity I26.99 Acute cor pulmonale presence: without acute cor pulmonale Chronicity: unspecified Pulmonary embolism type: other Pure hypercholesterolemia E78.00; E78.0 Hyperlipidemia type: pure hypercholesterolemia 12/29/17 0738 <Electronically signed by Bernard Bethea STAGE ELECTRICIAN-C> Date Bernard Bethea STAGE ELECTRICIAN-C 12/30/17 0822<Electronically signed by Sonny Person MD> Cosigner Signature: Date (if applicable) Sonny Person MD CC: Aditya Hope MD Observed: 12/02/2017 Status: F Source: [place] RESPIRATORY PANEL 3:58 PM [facility] MOLECULAR REPOSITORY RP PANEL ADENOVIRUS Not Detected HUMAN METAPHNEUMO Not Detected INFLUENZA A Not Detected INFLUENZA A (SUBTYPE H1) Not Detected INFLUENZA A (SUBTYPE H3) Not Detected INFLUENZA B Not Detected PARAINFLUENZA 1 Not Detected PARAINFLUENZA 2 Not Detected PARAINFLUENZA 3 Not Detected PARAINFLUENZA 4 Not Detected RHINOVIRUS Not Detected RSV A Not Detected RSV B Not Detected NAAT METHOD Testing was performed using nucleic acid amplification Performed By: #### M100.638 #### [facility] [place], [address] CBC W/DIFF, AUTOMATED Collected: 11/04/2017 Status: F Source: [place] 2:20 PM [facility] REPOSITORY TYPE CODE TESTS RESULT OUT OF RANGE REFERENCE UNITS LAB L100.1000 4.4-11.0 K/mm3 High WBC 11.9 LAB L100.1200 4.2-5.4 M/mm3 Normal RBC 4.29 LAB L100.1300 12.0-15.0 g/dl Normal HGB 13.3 LAB L100.1400 37-47 % Normal HCT 41.9 LAB L100.1500 81-99 fL Normal MCV 97.7 LAB L100.1600 27.0-32.0 pg Normal MCH 31.0 LAB L100.1700 32-36 g/gl Low MCHC 31.7 LAB L100.1810 11.6-14.6 % Normal RDW CV 13.0 LAB L100.1820 35.1-43.9 fl High RDW SD 45.8 LAB L100.1900 150-450 K/mm3 Normal PLT 259 LAB L100.2000 6.2-12.0 fl Normal MPV 11.3 LAB L100.2100 47-70 % High NEUT% 75.7 LAB L100.2200 19-41 % Low LY% 16.1 LAB L100.2300 0-10 % Normal MONO% 6.9 LAB L100.2400 0-5 % Normal EO% 0.8 LAB L100.2500 0-1 % Normal BASO% 0.3 LAB L100.2550 0.0-0.9 % Normal IM GRAN % 0.200 Result Comment: IG% - Immature Granulocytes (promyelocytes, myelocytes and metamyelocytes) > 1% indicates that a LEFT SHIFT is Present. LAB L100.2620 2.0-7.7 X10 3/uL High Absolute Neut 9.0 LAB L100.2720 0.83-4.51 X10 3/ul Normal Absolute Lymph 1.91 Performed By: #### L100.0100 #### [facility] [address] [place], [address] COMPREHENSIVE METABOLIC Collected: 11/04/2017 Status: F Source: [place] [facility] 2:20 PM [facility] REPOSITORY TYPE CODE TESTS RESULT OUT OF RANGE REFERENCE UNITS LAB L501.0100 74-106 mg/dL High GLU 122 Result Comment: Fasting Glucose result from 100 to 125 mg/dL suggests IMPAIRED HOMEOSTASIS per A.D.A. criteria. Please note revised GLUCOSE reference range effective 2017. LAB L501.1000 7-18 mg/dL Normal BUN 18 LAB L501.1100 0.55-1.02 mg/dL Normal CREAT,SERUM 0.84 Result Comment: The validity of the calculated GFR AND GFRAA in patients over 70 years has not been determined. Clinical correlation is essential. LAB L501.1110 >60 mL/min Normal EST GFR 69 Result Comment: Non- GFR Calc LAB L501.1115 >60 mL/min Normal EST GFR - AA 84 Result Comment: GFR Calc LAB L501.1300 10-20 RATIO High BUN/CRE 21.5 LAB L501.1500 6.4-8.2 g/dL Low T PROT 6.3 LAB L501.1800 3.2-5.0 g/dL Normal ALB 3.3 LAB L501.1950 2.2-4.2 g/dL Normal GLOB 3.0 LAB L501.2000 0.9-2.4 RATIO Normal A/G 1.1 LAB L501.2200 8.5-10.1 mg/dL CA Normal 9.6 LAB L501.4100 15-37 U/L Low AST 13 LAB L501.4305 45-117 U/L High ALK P 130 LAB L501.4405 13-56 U/L Normal ALT 19 Result Comment: Please note revised ALT reference range effective 2017. LAB L501.4600 0.20-1.00 mg/dL Normal T BILI 0.60 LAB L501.5300 136-145 mmol/L Normal NA 141 LAB L501.5600 3.5-5.1 mmol/L Normal K 3.5 LAB L501.5900 98-107 mmol/L Normal CL 106 LAB L501.6100 21.0-32.0 mmol/L Normal CO2 25.0 LAB L501.6200 5-15 Normal GAP 10 Performed By: #### L500.4050, L501.9520 #### [facility] [address] [place], [place], [id number] THYROID STIM HORMONE Collected: 11/04/2017 Status: F Source: [place] (TSH) 2:20 PM [facility] REPOSITORY TYPE CODE TESTS RESULT OUT OF RANGE REFERENCE UNITS LAB L501.9520 0.358-3.74 uIU/mL Normal TSH 0.40 Performed By: #### L500.4050, L501.9520 #### [facility] [address] [place], [address] VITAMIN D,25 HYDROXY Collected: 11/04/2017 Status: F Source: [place] 2:20 PM [facility] REPOSITORY TYPE CODE TESTS RESULT OUT OF RANGE REFERENCE UNITS LAB L506.1000 19.95-100.01 ng/mL Normal Vitamin D 35.6 25-OH Result Comment: Vitamin D 25(OH) Status Range Deficiency <20 ng/mL (50nmol/L) Insuffciency 20 - 30 ng/mL (50 - 75 nmol/L) Sufficiency 30 - 100 ng/mL (75 - 250 nmol/L) Toxicity >100 ng/mL (>250 nmol/L) Performed By: #### L506.1000 #### [facility] [address] [facility] [place], [address] EMERGENCY DEPARTMENT Observed: 10/23/2017 Status: F Source: [place] SUMMARY 12:16 AM [facility] REPOSITORY [facility] Medical Records Department [address] [facility] [place] [address] Emergency Department Summary 10/22/17 2357 MR#: [id number] Acct: [id number] Name: PAULO MILLER Rep #: [id number] : 1935 82 From: Elise Min MD PCP: Jayy ESTRADA,Aditya [facility] Status: REG ER - ER Visit Summary Date of Service: 10/22/17 Chief Complaint: Left ankle laceration History of Present Illness: The patient is a 82 F 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 Patient states her cat scratched her left ankle earlier today. Patient states she was scratched with the cats back claws, not with the cat's mouth. Wounds were cleansed and dressed at that time. Patient states she got up tonight to go to bed and had blood on the pillow under her ankle. Physical Examination: Blood pressure is 156/111, otherwise vitals normal. Patient is in no acute distress. Lower extremity examination reveals 3+ bilateral lower extremity edema. She has 3 V-shaped superficial lacerations on the lateral left ankle. Each laceration measures approximately 1/2 cm in length. One of the lesions has mild bleeding at this time. Test Results: [] Emergency Department Course and Treatment: Wound was cleansed. Surgifoam was placed over the wound and Santo wrap applied. Patient has been on the same dose of Coumadin for quite some time and has not recently been on antibiotics. I do not think INR needs to be checked at this time. Her bleeding is very minimal. Treatment Plan: [] Disposition: Discharge Impression: Superficial skin tear left ankle This note was generated with Gracious Eloise dictation software. It may contain incorrect words, spelling, and punctuation that were not noted in review of the chart prior to signing ED Disposition - Plan for ED Patient: Chief Complaint: Laceration Referrals: Aditya Hope Chi, MD [Primary Care Provider] - What to do if you have Problems For any increased pain, shortness of breath, bleeding, nausea or vomiting, chest pain, or any unexpected problems, contact your Primary Care Provider. Call [facility] ([phone]) or report to the closest Emergency Room. Call 911 if necessary. 10/23/17 0016 <Electronically signed by Elise Min MD> Date Elise Min MD Cosigner Signature (If Indicated): Date CC: Aditya Hope MD DISCHARGE INSTRUCTION Observed: 10/23/2017 Status: F Source: [place] 12:01 AM [facility] REPOSITORY [facility] Medical Records Department [address] [place] [address] Discharge Instruction 10/22/17 2359 MR#: [id number] Acct: [id number] Name: PAULO MILLER Rep #: [id number] : 1935 82 From: Elise Min MD PCP: Aditya Hope MD, Chi Status: PRE ER ED Disposition - Plan for ED Patient: Disposition: Home or Assisted Living Chief Complaint: Laceration Instructions: ED Laceration Small Superf No Sutr Referrals: Aditya Hope Chi, MD [Primary Care Provider] - As Needed What to do if you have Problems For any increased pain, shortness of breath, bleeding, nausea or vomiting, chest pain, or any unexpected problems, contact your Primary Care Provider. Call [facility] ([phone]) or report to the closest Emergency Room. Call 911 if necessary. 10/23/17 0001 <Electronically signed by Elise Min MD> Date Elise Min MD Cosigner Signature (If Indicated): Date CC: Aditya Hope MD ALLERGIES ALLERGIES DATE TYPE / CODE NAME / CODE REACTION SEVERITY SOURCE 06/17/2018 Drug ibuprofen/F0 Unknown Unknown [place] [facility] Allergy/4160 [id number]([facility] 42919(SNOMED OR) Repository CT) ENCOUNTERS ENCOUNTERS ADMIT/DISCHARGE ACCOUNT ADMITTING ENCOUNTER LOCATION SOURCE NUMBER CLASS 08/23/2018 [id number] Ambulatory [place] 5 [facility] ing:RAD Repository 06/22/2018/ [id number] Ambulatory BMSBuilding:B [place] 8 6 [facility] Repository 06/17/2018 [id number] Ambulatory BMSBuilding:B [place] 5 [facility] Repository 05/25/2018 [id number] Ambulatory [place] 9 [facility] ing:POLAB3 Repository 05/06/2018 [id number] Ambulatory [place] 2 [facility] ing:POLAB3 Repository 03/30/2018/ [id number] Ambulatory BMSBuilding:B [place] 8 2 [facility] Repository 03/23/2018/ [id number] Ambulatory BMSBuilding:B [place] 8 3 [facility] Repository 03/18/2018/ [id number] Ambulatory BMSBuilding:B [place] 8 2 [facility] Repository 03/11/2018/ [id number] Ambulatory BMSBuilding:B [place] 8 3 [facility] Repository 03/04/2018/ [id number] Ambulatory BMSBuilding:B [place] 8 [facility] Repository 03/01/2018/ [id number] Ambulatory BMSBuilding:B [place] 8 1 [facility] Repository 02/25/2018/ [id number] Ambulatory BMSBuilding:B [place] 8 8 [facility] Repository 02/18/2018 [id number] Ambulatory [place] 0 [facility] ing:HPRAD Repository 02/18/2018/ [id number] Ambulatory BMSBuilding:B [place] 8 5 [facility] Repository 12/30/2017 [id number] Ambulatory [place] 8 [facility] ing:[facility] Repository 12/30/2017 [id number] Ambulatory [place] 9 [facility] Hospital ing:[facility] Repository 12/30/2017 [id number] Ambulatory BMSBuilding:W [place] 7 [facility] Repository 12/30/2017 [id number] Ambulatory BMSBuilding:W [place] 1 [facility] Hospital Repository 12/28/2017/ [id number] Ambulatory BMSBuilding:B [place] 8 4 [facility] Repository 12/25/2017 [id number] Ambulatory BMSBuilding:B [place] 2 [facility] Repository 12/15/2017 [id number] Ambulatory BMSBuilding:B [place] 5 [facility] Repository 12/02/2017 [id number] Ambulatory [place] 4 [facility] Hospital ing:PSN Repository 11/04/2017 [id number] Ambulatory [place] 9 [facility] Hospital ing:POLAB3 Repository 10/22/2017/ [id number] Emergency [place] 8 8 [facility] ing:ED Repository PAYERS PAYERS ENCOUNTER GUARANTOR PAYER SUBSCRIBER SOURCE 08/23/2018 PAULO Higginbotham Primary PAULO Higginbotham [place] [id number] Insurance:MEDICARE WERTZDOB: Community BAYBERRY PART A [facility] [id number] Number: Repository [address]Ryg: 330 [id number] [phone] () Date:2018-08-23 08/23/2018 Secondary PAULO Higginbotham [place] Insurance:CIGNAPolicy WERTZDOB: [facility] Number: [id number] Hospital [id number] Repository Date:[id number] [facility] [place] [address]XU: 08/23/2018 Tertiary NOT GIVENUNK [place] Insurance:SELF PAY [facility] Number: Effective Repository Date:2018-08-23 06/22/2018 PAULO Higginbotham Primary PAULO Higginbotham [place] [id number] Insurance:MEDICARE WERTZDOB: [facility] BAYBERRY PART A [facility] [id number] [place] [address] Number: Repository [id number]: 330 [id number] [phone] () Date:2017-12-28 06/22/2018 Secondary PAULO Higginbotham [place] Insurance:CIGNAPolicy WERTZDOB: Community Number: [id number] Hospital [id number] Repository Date:[id number], [place] [address]PI: 06/22/2018 Tertiary NOT GIVENUNK [place] Insurance:SELF PAY [facility] Number: Effective Repository Date:2018-06-22 06/17/2018 PAULO Higginbotham Primary PAULO Higginbotham [place] [id number] Insurance:MEDICARE WERTZDOB: Community BAYBERRY PART A [facility] [id number] Number: Repository [id number]: 330 [id number] [phone] (HP) Date:2018-06-17 06/17/2018 Secondary NOT GIVENUNK [place] Insurance:SELF PAY [facility] Number: Effective Repository Date:2018-06-17 05/25/2018 PAULO Higginbotham Primary PAULO Lariososter [id number] Insurance:MEDICARE WERTZDOB: Community BAYBERRY PART A [facility] [id number] [place] Number: Repository [address]Roy: 330 [id number] [phone] () Date:2018-05-25 05/25/2018 Secondary NOT GIVENUNK [place] Insurance:SELF PAY [facility] Number: Effective Repository Date:2018-05-25 05/06/2018 PAULO Higginbotham Primary PAULO Higginbohtam [place] [id number] Insurance:MEDICARE WERTZDOB: Community BAYBERRY PART A [facility] [id number] [place] Number: Repository [id number]: 330 [id number] [phone] () Date:2018-05-06 05/06/2018 Secondary NOT GIVENUNK [place] Insurance:SELF PAY [facility] Number: Effective Repository Date:2018-05-06 03/30/2018 PAULO Higginbotham Primary PAULO Higginbotham [place] [id number] Insurance:MEDICARE WERTZDOB: Community BAYBERRY PART A [facility] [id number] Number: Repository [address]Ayr: 330 [id number] [phone] () Date:2018-03-23 03/30/2018 Secondary PAULO Higginbotham [place] Insurance:AMER WERTZDOB: Community [id number] Number: Repository Effective Date:2018-03-23 03/30/2018 Tertiary NOT GIVENUNK [place] Insurance:SELF PAY [facility] Number: Effective Repository Date:2018-03-30 03/23/2018 PAULO Higginbotham Primary PAULO Higginbotham [place] [id number] Insurance:MEDICARE WERTZDOB: Community BAYBERRY PART A [facility] [id number][facility] [place] Number: Repository [id number]: 330 [id number] [phone] () Date:2018-03-18 03/23/2018 Secondary PAULO Higginbotham [place] Insurance:CIGNAPolicy WERTZDOB: Community Number: [id number] Hospital [id number] Repository Date:[id number], [place] [address]AG: 03/23/2018 Tertiary NOT GIVENUNK [place] Insurance:SELF PAY [facility] Number: Effective Repository Date:2018-03-23 03/18/2018 PAULO Higginbotham Primary PAULO Higginbotham [place] [id number] Insurance:MEDICARE WERTZDOB: Community BAYBERRY PART A [facility] [id number] Number: Repository [address]Ptb: 330 [id number] [phone] () Date:2018-03-11 03/18/2018 Secondary PAULO M [place] Insurance:AMER WERTZDOB: Community [facility] [id number] [facility]: Repository Effective Date:2018-03-11 03/18/2018 Tertiary NOT GIVENUNK [place] Insurance:SELF PAY [facility] Number: Effective Repository Date:2018-03-18 03/11/2018 PAULO Higginbotham Primary PAULO Lariososter [id number] Insurance:MEDICARE WERTZDOB: Community BAYBERRY PART A [facility] [id number] Number: Repository [address]Ceg: 330 [id number] [phone] () Date:2018-03-04 03/11/2018 Secondary PAULO Higginbotham [place] Insurance:CIGNAPolicy WERTZDOB: Community Number: [id number] Hospital [id number] Repository Date:3941-17-91[address]XXXXNNNFLQ, [place] [address]EU: 03/11/2018 Tertiary NOT GIVENUNK [place] Insurance:SELF PAY [facility]: Effective Repository Date:2018-03-11 03/04/2018 PAULO Higginbotham Primary PAULO Higginbotham [place] [id number] Insurance:MEDICARE WERTZDOB: Community BAYBERRY PART A [facility] [id number] Number: Repository [id number]: [phone] [id number] [phone] () Date:2018-03-03 03/04/2018 Secondary PAULO Higginbotham [place] Insurance:CIGNAPolicy WERTZDOB: [facility] Number: [id number] Hospital [id number] Repository Date:6349-17-62YR RAZ [place]50566[place]PF[place]OW[place], [place] [address]CI: 03/04/2018 Tertiary NOT GIVENUNK [place] Insurance:SELF PAY [facility] Number: Effective Repository Date:2018-03-04 03/01/2018 PAULO Higginbotham Primary PAULO Higginbotham [place] [id number] Insurance:MEDICARE WERTZDOB: [facility] BAYBERRY PART A [facility] [id number] Number: Repository [address]Nbj: 330 [id number] [phone] () Date:2018-03-05 03/01/2018 Secondary PAULO Higginbotham [place] Insurance:AMER WERTZDOB: [facility] [id number] Number: Repository [id number] Date:2018-01-19 03/01/2018 Tertiary NOT GIVENUNK [place] Insurance:SELF PAY [facility] Number: Effective Repository Date:2018-03-05 02/25/2018 PAULO Higginbotham Primary PAULO Higginbotham [place] [id number] Insurance:MEDICARE [facility] [id number] Number: Repository [address]Eyc: 330 [id number] [phone] () Date:2018-02-18 02/25/2018 Secondary PAULO Higginbotham [place] Insurance:AMER WERTZDOB: [address] Number: Repository [id number] Date:2018-02-09 02/25/2018 Tertiary NOT GIVENUNK [place] Insurance:SELF PAY [facility] Number: Effective Repository Date:2018-03-05 02/18/2018 PAULO Higginbotham Primary NOT GIVENUNK [place] [id number] Insurance:SELF PAY [place] Number: Effective Repository [id number]: [phone]) Date:2018-02-18 [phone] () 02/18/2018 PAULO Higginbotham Primary PAULO Higginbotham [place] [id number] Insurance:MEDICARE WERTZDOB: Community BAYBERRY PART A [facility] [id number] Number: Repository [address]Ucg: 330 [id number] [phone] () Date:2018-02-09 02/18/2018 Secondary PAULO Higginbotham [place] Insurance:AMER WERTZDOB: [id number] Number[facility] Repository [id number] Date:2018-02-09 02/18/2018 Tertiary NOT GIVENUNK [place] Insurance:SELF PAY [facility] Number: Effective Repository Date:2018-02-18 12/30/2017 PAULO Higginbotham Primary NOT GIVENUNK [place] [id number] Insurance:SELF PAY [place] Number: Effective Repository [phone]: [phone]) Date:2017-12-28 [phone] () 12/30/2017 PAULO Higginbotham Primary PAULO Higginbotham [place] [id number] Insurance:MEDICARE WERTZDOB: Community BAYBERRY PART A [facility] [id number] Number: Repository [phone]: 330 [id number] [phone] () Date:2017-12-28 12/30/2017 Secondary PAULO Higginbotham [place] Insurance:CIGNAPolicy WERTZDOB: [facility] Number: [id number] Hospital [id number] Repository Date:8054-36-17CS [address] [address]WF: 12/30/2017 Tertiary NOT GIVENUNK [place] Insurance:SELF PAY [facility] Number: Effective Repository Date:2017-12-28 12/30/2017 PAULO Higginbotham Primary PAULO Higginbotham [place] [id number] Insurance:MEDICARE WERTZDOB: Community BAYBERRY PART A [facility] [id number] Number: Repository [phone]: [phone] [id number] [phone] () Date:2017-12-28 12/30/2017 Secondary PAULO M [place] Insurance:CIGNAPolicy WERTZDOB: Community Number: [id number] Hospital [id number] Repository Date:0707-17-05RJ [address] [address]HP: 12/30/2017 Tertiary NOT GIVENUNK [place] Insurance:SELF PAY [facility] Number: Effective Repository Date:2017-12-30 12/30/2017 PAULO Higginbotham Primary PAULO M [place] [id number] Insurance:MEDICARE WERTZDOB: Community BAYBERRY PART A [facility] [id number] Number: Repository [address]Nuk: [phone] [id number] [phone] () Date:2017-12-28 12/30/2017 Secondary PAULO M [place] Insurance:CIGNAPolicy WERTZDOB: Community Number: [id number] Hospital [id number] Repository Date:8421-12-03BZ [address]OCXHPDLIAKP, [place] [address]NZ: 12/30/2017 Tertiary NOT GIVENUNK [place] Insurance:SELF PAY [facility] Number: Effective Repository Date:2017-12-30 12/28/2017 PAULO M Primary PAULO M [place] [id number] Insurance:MEDICARE WERTZDOB: Community BAYBERRY PART A [facility] [id number] Number: Repository [phone]: [phone] [id number] [phone] () Date:2017-12-10 12/28/2017 Secondary PAULO M [place] Insurance:CIGNAPolicy WERTZDOB: Community Number: [id number] Hospital [id number] Repository Date:7025-64-25LL [address]RPJDSNPALXA, [place] [address]MI: 12/28/2017 Tertiary NOT GIVENUNK [place] Insurance:SELF PAY [facility] Number: Effective Repository Date:2017-12-11 12/25/2017 PAULO Higginbotham Primary PAULO Higginbotham [place] [id number] Insurance:MEDICARE WERTZDOB: Community BAYBERRY PART A olic [id number] [place] Number: Repository [address]Mld: 330 [id number] [phone] () Date:2017-12-25 12/25/2017 Secondary PAULO M [place] Insurance:CIGNAPolicy WERTZDOB: Community Number: [id number] Hospital [id number] Repository Date:5813-34-58[address] [address]DK: 12/25/2017 Tertiary NOT GIVENUNK [place] Insurance:SELF PAY [facility] Number: Effective Repository Date:2017-12-25 12/15/2017 Paulo Higginbotham Primary NOT GIVENUNK [place] [id number] Insurance:SELF PAY [facility] [place] Number: Effective Repository [id number]: [phone]) Date:2017-08-30 [phone] () 12/02/2017 Paulo Higginbotham Primary Paulo Higginbotham [place] [id number] Insurance:MEDICARE WertzDOB: Community [place] PART A [id number] [place] Number[facility] Repository [address]Tsk: 330 [id number] [phone] () Date:2017-12-02 12/02/2017 Secondary Paulo Higginbotham [place] Insurance:CIGNAPolicy WertzDOB: Community Number: [id number] Hospital [id number] Repository Date:0065-67-72[address] [address]FX: 12/02/2017 Tertiary NOT GIVENUNK [place] Insurance:SELF PAY [facility] Number: Effective Repository Date:2017-12-02 11/04/2017 PAULO Higginbotham Primary PAULO Higginbotham [place] [id number] Insurance:MEDICARE WERTZDOB: Community BAYBERRY PART A [facility] [id number] Number: Repository [phone]: [phone] [id number] [phone] () Date:2017-11-04 11/04/2017 Secondary PAULO M [place] Insurance:CIGNAPolicy WERTZDOB: Community Number: [id number] Hospital [id number] Repository Date:0688-31-36CS [address]VTQEHWUJVUA, [place] [address]UO: 11/04/2017 Tertiary NOT GIVENUNK [place] Insurance:SELF PAY [facility] Number: Effective Repository Date:2017-11-04 10/22/2017 PAULO M Primary PAULO M [place] [id number] Insurance:MEDICARE WERANSLEYDOB: Community BAYBERRY PART A [facility] [id number] Number: Repository [address]Vwn: [phone] [id number] [phone] () Date:2017-10-22 10/22/2017 Secondary PAULO M [place] Insurance:CIGNAPolicy WERTZDOB: Community Number: [id number] Hospital [id number] Repository Date:0606-83-24[address]ZGFFUPARFAH, [place] [address]XP: 10/22/2017 Tertiary NOT GIVENUNK [place] Insurance:SELF PAY [facility] Number: Effective Repository Date:2017-10-22
== END ==
PROVIDERS: Family Provider Family Medicine Geriatric Medicine; PCP Family Medicine Geriatric Medicine; Referring Provider Family Medicine Geriatric Medicine; Visit Provider Family Medicine Geriatric Medicine
DX: M25.561 Pain in right knee (principal); M25.562 Pain in left knee
CPT/HCPCS: 73564

== ENCOUNTER 2018-09-13 15:06 | Emergency (ER) | payer MEDICARE, OTHER, SELFPAY ==
[2018-08-23 12:04] VITALS: BMI 40.5
[2018-09-13 15:06] VITALS: BP 175/91; PULSE 76; RESP 16; TEMP 36.6; O2SAT 95; BMI 36.8
--- NOTE | 2018-09-13 15:24 | EKG12_ITS ---
Test Reason : CP Blood Pressure : / mmHG Vent. Rate : 072 BPM Atrial Rate : 072 BPM P-R Int : 152 ms QRS Dur : 088 ms QT Int : 384 ms P-R-T Axes : 081 039 055 degrees QTc Int : 420 ms Normal sinus rhythm Normal ECG Confirmed by CHARISMA ESTRADA, ALEXANDER ([id number]), supervising film or videotape editor OSIRIS CUBA ([id number]) on 09/17/2018 3:30:27 PM Referred By: Sonny Person Confirmed By:ALEXANDER ZAFAR MD
--- NOTE | 2018-09-13 15:25 | RAD_ITS ---
STUDY: X-RAY CHEST REASON FOR EXAM: Female, 83 years old. Sudden onset precordial chest pain TECHNIQUE: Single AP portable view of the chest. COMPARISON: 07/22/2017 FINDINGS: As compared to the exam from last year, there appears to be questionable widening of the mediastinum. Lungs are essentially clear. There is borderline cardiomegaly. Normal mediastinum and dean. Normal visualized pulmonary arteries. Normal visualized aortic arch and descending thoracic aorta. There are diffuse degenerative changes of the visualized thoracic spine. There is degenerative osteoarthritis of the bilateral shoulders. There is no demonstrated abnormality of the visualized soft tissue structures of the upper abdomen. RAD/Chest 1 View (Portable) IMPRESSION: Lungs are essentially clear. Questionable widening of the mediastinum. Recommend CT chest to evaluate for thoracic aortic injury. Electronically Signed: Parvez Abdullahi DO at 15:38 EST Tel , Service support ,
--- NOTE | 2018-09-13 15:28 | ED.VISSUMM ---
- ER Visit Summary Date of Service: 09/13/18 Chief Complaint: [] Chest pain today for 10-15 minutes history of cardiac stent CHF History of Present Illness: The patient is a 83 F [] is very stable during good health recently today she developed chest pressure lasted for 10-15 minutes typical of anginal type changes had before. She indicates her cardiac stent and CHF cardiac status is very stable she has not had chest pain for over a year she is followed by Dr. Person. She has not been exerting herself. She said no fever no cough no abdominal pain normal bowel bladder habits review of systems otherwise negative, she does not recall ever having an PA or DVT or PE Physical Examination: [] Currently without pain 170/80 afebrile General, no distress resting comfortably HEENT is generally unremarkable The neck is supple no adenopathy Cardiovascular, regular rate and rhythm Lungs, clear bilateral Abdomen, soft nontender Extremities, 4+ edema chronic for her and stable not different Neurologic, awake alert answering questions appropriately moving all 4 extremities Test Results: [] Emergency Department Course and Treatment: [] Sinus rhythm nothing acute given all the above and her age and her complaints screening labs she is on Coumadin she is allergic to nonsteroidals is taking low-dose aspirin which she took today Screening labs are all generally unremarkable please review those, the chest x-ray showed nothing acute questionable enlargement of mediastinum, recommend CT per radiology, CT of the chest shows no dissection no PE nothing acute 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 she and the son verbalized complete understanding of the above but did not wish to be admitted as tomorrow is [place] she would prefer outpatient management follow-up with physicians soon as possible and return for change in symptoms Treatment Plan: [] Disposition: [] Home stable declined admission Impression: [] Chest pain resolved history of cardiac stents This note was generated with [employer] dictation software. It may contain incorrect words, spelling, and punctuation that were not noted in review of the chart prior to signing ED Disposition - Plan for ED Patient: Chief Complaint: Chest Pain Referrals: Aditya Hope Chi, MD [Primary Care Provider] -
[2018-09-13 15:35] LABS: Absolute Lymphocyte Count 1.47 X10^3/ul (0.83-4.51); Basophil# 0.02 X10^3/uL; Basophil% 0.2 % (0-1); Eosinophil# 0.17 X10^3/uL; Eosinophils% 1.6 % (0-5); Hemoglobin 13.3 g/dl (12.0-15.0); Lymphocyte # 1.47 X10^3/ul (4.0); Lymphocyte % 14.1 % (19-41); Mean Corp Hgb Conc 32.4 g/gl (32-36); Mean Corpuscular Hgb 31.5 pg (27.0-32.0); Mean Corpuscular Volume 97.2 fL (81-99); Mean Platelet Vol. 11.2 fl (6.2-12.0); Monocyte# 0.74 X10^3/uL; Monocyte% 7.1 % (0-10); Neutrophil # 7.97 X10^3/uL (2.7-7.7); Neutrophil % 76.8 % (47-70); Platelet Count 177 K/mm3 (150-450); RBC Distribution Width CV 13.8 % (11.6-14.6); RBC Distribution Width SD 49.4 fl (35.1-43.9); Red Blood Count 4.22 M/mm3 (4.2-5.4); White Blood Count 10.4 K/mm3 (4.4-11.0)
[2018-09-13 15:36] LABS: POSITIVE COUNT NO; POSITIVE DIFFERENTIAL NO; POSITIVE MORPHOLOGY NO
[2018-09-13 15:46] LABS: International Normalized Ratio 1.6
[2018-09-13 15:49] LABS: Anion Gap 8 (5-15); BUN 25 mg/dL (7-18); BUN/Creat Ratio 27.7 RATIO (10-20); Calcium,Total 9.7 mg/dL (8.5-10.1); Chloride 106 mmol/L (98-107); EST Glomerular Filtration Rate 64 mL/min (>60); Est Glom Filt Rate - Afr Amer 77 mL/min (>60); Glucose 109 mg/dL (74-106); Potassium 3.5 mmol/L (3.5-5.1); Sodium Level 142 mmol/L (136-145)
[2018-09-13 16:02] LABS: BNP,B-Type NATRIURETIC PEPTIDE 130.1 pg/mL (0-100)
--- NOTE | 2018-09-13 16:31 | CT_ITS ---
STUDY: CTA CHEST REASON FOR EXAM: Female, 83 years old. Swelling onset chest pain radiating to back RADIATION DOSAGE (If Supplied By Facility): CTDIvol = ( 14.90 ) mGy, DLP = ( 538.42 ) mGycm TECHNIQUE: The examination was performed with the intravenous administration of 100 ml of Isovue 370 contrast material. Post-processing of the angiographic images was performed, with multiplanar reformation and 3D reconstruction. Individualized dose optimization techniques were used for this CT. COMPARISON: None. FINDINGS: Normal enhancement of the main pulmonary artery and right and left pulmonary arteries. Normal enhancement of the bilateral peripheral pulmonary arteries. There is no demonstrated pulmonary embolism. There is atherosclerotic calcification of the aortic arch with tortuosity. No evidence of thoracic aortic dissection however, there appears to be saccular aneurysm of the aortic arch posteriorly measuring roughly 2 cm long by 1 cm wide. There is no evidence of intramural hematoma. No evidence of perforation. Borderline cardiomegaly. Normal pericardium Normal mediastinum. Normal hilar regions. Normal visualized trachea and bronchi. The lungs are well expanded. Normal pulmonary parenchyma. Normal pleura. Normal chest wall structures. There are degenerative changes of thoracic spine. Normal visualized upper abdomen. CT/CTA Chest W/WO Contrast IMPRESSION: 1. Negative for pulmonary embolism 2. 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 Possibly penetrating. No evidence of dissection, perforation or rupture. 3. Lungs are clear Electronically Signed: Parvez Abdullahi DO at 18:08 EST Tel , Service support ,
[2018-09-13 16:54] VITALS: BP 175/67; PULSE 77; RESP 14; O2SAT 95
[2018-09-13 18:21] VITALS: BP 184/83; PULSE 79; RESP 14; O2SAT 93
--- NOTE | 2018-09-13 19:22 | ED.DEP ---
ED Disposition - Plan for ED Patient: Chief Complaint: Chest Pain Instructions: ED Chest Pain Atypical Unkn Cause Referrals: Aditya Hope Chi, MD [Primary Care Provider] -
[2018-09-13 19:31] VITALS: BP 168/76; PULSE 80; RESP 14; O2SAT 95
== END 2018-09-13 19:32 | disposition home or self-care (01) ==
PROVIDERS: Emergency Provider Emergency Medicine; Family Provider Family Medicine Geriatric Medicine; PCP Family Medicine Geriatric Medicine; Referring Provider Internal Medicine Cardiovascular Disease
DX: R07.89 Other chest pain (principal); Z95.5 Presence of coronary angioplasty implant and graft; I25.10 Atherosclerotic heart disease of native coronary artery without angina pectoris; I50.9 Heart failure, unspecified; Z79.82 Long term (current) use of aspirin; Z79.01 Long term (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 anticoagulants; Z79.899 Other long term (current) drug therapy
CPT/HCPCS: 71045; 71275; 80048; 83880; 84484; 85025; 85610; 93005; 99285; J7030; J7040; Q9967

== ENCOUNTER → 2018-10-12 12:01 | Outpatient (CLI) | payer MEDICARE, OTHER, SELFPAY ==
[2018-09-13 15:06] VITALS: BMI 36.8
--- NOTE | 2018-10-12 | IMM_PTH ---
PATIENT: PAULO MILLER LOC: [facility] U#:[id number] AGE/SX: 89/F ROOM: RE10/12/[address]: Dr. Aditya Hope MD : 1935 BED: DIS: SPEC #: [id number] RECD: 10/13/18 10:00 STATUS: WILVER REQ #: [id number] SHANA: 10/12/18 00:[address]: Aditya Hope Chi DEPT: IMMUNOHISTOCHEMISTRY RECD BY: Shirley Coronado Tissues: Skin of nose, NOS Procedures: BCL-2 (add) CD10 (add) CK14 (add) CK5-6 (add) Pankeratin (initial) P40 (add) PHYSICIAN & INSTITUTION [place] [id number] SPECIMEN INFORMATION: Tissue Source: Nose Clinical Info: L98.9 Specimen Number: [id number] CPT code: 38320, 90269 x5 METHODOLOGY: Deparaffinized sections of prefer/formalin-fixed tissue or PAP/DQ stained slides are incubated with monoclonal/polyclonal antibodies/oligonucleotide probes. Localization is made via biotin free immunoperoxidase method. Appropriate controls are performed and reacted as expected. Results on target cell population are indicated in the following table: RESULTS: ANTIBODY / CLONE RESULT AE1-3 (AE1/AE3/PCK26) positive P40 (BC28) positive CK5-6 (D5 & 1684) positive CK14 (LL002) positive CD10 (56C6) negative BCL-2 (bcl-2/100/D5) negative These tests were developed and their performance characteristics determined by [facility]. They may not have been cleared or approved by the U.S. Food and Drug Administration. The FDA has determined that such clearance or approval is not necessary. INTERPRETATION: Skin of nose, excision: Consistent with basosquamous carcinoma. AM:braulio 10/14/18
--- NOTE | 2018-10-12 09:45 | LES_PTH ---
PATIENT: PAULO MILLER LOC: [facility] U#:[id number] AGE/SX: 89/F ROOM: RE10/12/[address]: Dr. Aditya Hope MD : 1935 BED: DIS: SPEC #: [id number] RECD: 10/12/18 12:32 STATUS: WILVER CELESTE #: [id number] SHANA: 10/12/18 09:[address]: Aditya Hope Chi DEPT: SURGICAL PATHOLOGY RECD BY: Emmanuel Cohen Tissues: Skin of nose, NOS Procedures: Surgery Specimen Level IV HEADER OPERATION: Not noted PRE-OP DIAGNOSIS: L98.9 TISSUE SUBMITTED: Nose MICROSCOPIC DIAGNOSIS Skin lesion of nose, biopsy: Baso-squamous cell carcinoma. Solar elastosis. See Comment. AM:braulio 10/13/18 COMMENT Immunohistochemistry ([id number]) supports the above diagnosis. The lesion measures 3.2 mm in greatest dimension and is completely excised in the planes examined. MICROSCOPIC DESCRIPTION Slides are reviewed. GROSS DESCRIPTION Received in fixative is one container labeled with the patient's name and designated nose. The specimen consists of an irregular fragment of light carrera excised skin measuring 0.5 x 0.3 x 0.2 cm. The specimen is totally submitted in one cassette. / AM:braulio 10/12/18 TC:0 [facility]: [id number]
--- OUTSIDE RECORDS SUMMARY | 2018-12-14 15:50 | XMS RPT_ITS ---
:1935 Author Organization OHIP Support Name Relationship Address Phone R Unavailable Unavailable Unavailable EZEQUIEL MILLERER Unavailable [address] + [place] [address] R Unavailable Unavailable Unavailable ANGELA CHRISTOPHER Unavailable [address] + [place] [address] R Unavailable Unavailable Unavailable ANGELA CHRISTOPHER Unavailable [address] + [place] [address] R Unavailable Unavailable Unavailable ANGELA CHRISTOPHER Unavailable [address] + [place] [address] R Unavailable Unavailable Unavailable ANGELA CHRISTOPHER Unavailable [address] + [place] [address] R Unavailable Unavailable Unavailable ANGELA CHRISTOPHER Unavailable [address] + [place] [address] R Unavailable Unavailable Unavailable ANGELA CHRISTOPHER Unavailable [address] + [place] [address] R Unavailable Unavailable Unavailable ANGELA CHRISTOPHER Unavailable [address] + [place] [address] R Unavailable Unavailable Unavailable ANGELA CHRISTOPHER Unavailable [address] + [place] [address] R Unavailable Unavailable Unavailable ANGELA, CHRISTOPHER Unavailable [address] + [place] [address] R Unavailable Unavailable Unavailable ANGELA CHRISTOPHER Unavailable [address] + [place] [address] R Unavailable Unavailable Unavailable ANGELA CHRISTOPHER Unavailable [address] + [place] [address] R Unavailable Unavailable Unavailable IRVING MILLEROPHER Unavailable [address] + [place] [address] R Unavailable Unavailable Unavailable ANGELA, CHRISTOPHER Unavailable [address] + [place] [address] R Unavailable Unavailable Unavailable ANGELA, CHRISTOPHER Unavailable [address] + [place] [address] R Unavailable Unavailable Unavailable ANGELA, CHRISTOPHER Unavailable [address] + [place] [address] R Unavailable Unavailable Unavailable ANGELA, CHRISTOPHER Unavailable [address] + [place] [address] R Unavailable Unavailable Unavailable ANGELA, CHRISTOPHER Unavailable [address] + [place] [address] R Unavailable Unavailable Unavailable ANGELA, CHRISTOPHER Unavailable [address] + [place] [address] R Unavailable Unavailable Unavailable ANGELA, CHRISTOPHER Unavailable [address] + [place] [address] R Unavailable Unavailable Unavailable R Unavailable Unavailable Unavailable ANGELA, CHRISTOPHER Unavailable [address] + [place] [address] WILLIAMLAGER EDWARD Unavailable [address] + [place] [address] R Unavailable Unavailable Unavailable ANGELA, CHRISTOPHER Unavailable [address] + [place] [address] WILLIAMLAGER EDWARD Unavailable [address] + [place] [address] R Unavailable Unavailable Unavailable ANGELA, CHRISTOPHER Unavailable [address] + [place] [address] LAUTENSLAGER, EDWARD Unavailable [address] + [place] [address] R Unavailable Unavailable Unavailable ANGELA, CHRISTOPHER Unavailable [address] + [place] [address] R Unavailable Unavailable Unavailable R Unavailable Unavailable Unavailable ANGELA, CHRISTOPHER Unavailable [address] + [place] [address] R Unavailable Unavailable Unavailable R Unavailable Unavailable Unavailable RADHA MILLER Unavailable [address] + [place] [address] Care Team Providers Name Role Phone Jayy, Aditya Chi Primary Care Unavailable Waylon Kelly Attending Unavailable Naya, [place] Referring Unavailable Jayy, Aditya Chi Attending Unavailable Jayy, Aditya Chi Primary Care Unavailable Jayy, Aditya Chi Primary Care Unavailable Elise Min Attending Unavailable Jayy, Aditya Chi Attending Unavailable Jayy, Aditya Chi Primary Care Unavailable Jayy, Aditya Chi Attending Unavailable Jayy, Aditya Chi Referring Unavailable Jayy, Aditya Chi Primary Care Unavailable Naya Sonny Attending Unavailable Jayy, Aditya Chi Referring Unavailable Katarina Hankins Attending Unavailable Roof, Bernard H Attending Unavailable Jayy, Aditya Chi Referring Unavailable Jayy, Aditya Chi Primary Care Unavailable Roof, Bernard H Attending Unavailable Roof, Bernard H Referring Unavailable Jayy, Aditya Chi Primary Care Unavailable Roof, Bernard H Attending Unavailable Roof, Bernard H Referring Unavailable Jayy, Aditya Chi Primary Care Unavailable Sonny Person Attending Unavailable DossieCesia D.C. Attending Unavailable Jayy, Aditya Chi Referring Unavailable Jayy, Aditya Chi Primary Care Unavailable DossieCesia D.C. Attending Unavailable DossieCesia D.C. Referring Unavailable Jayy, Aditya Chi Primary Care Unavailable DossieCesia D.C. Attending Unavailable Jayy, Aditya Chi Referring Unavailable Jayy, Aditya Chi Primary Care Unavailable DossieCesia D.C. Attending Unavailable Jayy, Aditya Chi Referring Unavailable Jayy, Aditya Chi Primary Care Unavailable Dossie, Cesia Zuleta Attending Unavailable Jayy, Aditya Chi Referring Unavailable Jayy, Aditya Chi Primary Care Unavailable Dossie, Cesia Zuleta Attending Unavailable Jayy, Aditya Chi Referring Unavailable Jayy, Aditya Chi Primary Care Unavailable Dossie, Cesia Zuleta Attending Unavailable Jayy, Aditya Chi Referring Unavailable Jayy, Aditya Chi Primary Care Unavailable DossieCesia D.C. Attending Unavailable Jayy, Aditya Chi Referring Unavailable Jayy, Daitya Chi Primary Care Unavailable Naya, Sonny Attending Unavailable Dossie, Cesia Zuleta Attending Unavailable Jayy, Aditya Chi Referring Unavailable Jayy, Aditya Chi Primary Care Unavailable Jayy, Aditya Chi Attending Unavailable Jayy, Aditya Chi Primary Care Unavailable Jayy, Aditya Chi Attending Unavailable Jayy, Aditya Chi Primary Care Unavailable Nolt, Cynthia Attending Unavailable Naya, Sonny Attending Unavailable Jayy, Aditya Chi Referring Unavailable Jayy, Aditya Chi Attending Unavailable Jayy, Aditya Chi Referring Unavailable Jayy, Aditya Chi Primary Care Unavailable PROBLEMS PROBLEMS DATE TYPE CONDITION / CODE ATTENDING STATUS SOURCE 10/12/2018 Unknown L98.9 - Disorder of Jayy, Aditya Chi Active [place] the skin and Community subcutaneous tissue, Hospital unspecified / Repository L98.9(ICD-10) 06/22/2018 Unknown R00.2 - Palpitations Naya, [place] Active [facility] / R00.2(ICD-10) Community Hospital Repository 06/22/2018 Unknown I10 - Essential Naya, Sonny Active [place] (primary) Community hypertension / Hospital I10(ICD-10) Repository 06/22/2018 Unknown Z95.5 - Presence of Naya, Sonny Active [place] coronary angioplasty Community implant and graft / Hospital Z95.5(ICD-10) Repository 06/22/2018 Unknown I48.91 - Unspecified Naya, Sonny Active [facility] atrial fibrillation / Community I48.91(ICD-10) Hospital Repository 04/13/2018 Unknown M99.03 - Segmental Dossie, Cesia Active [place] and somatic [facility] 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 Community dysfunction of pelvic Hospital region / Repository M99.05(ICD-10) 04/13/2018 Unknown M99.02 - Segmental Dossie, Cesia Active [facility] and somatic [facility] 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 Repository without angina pectoris / I25.10(ICD-10) 12/28/2017 Unknown I27.20 - Pulmonary Roof, Bernard Moreau Active [facility] hypertension, Community unspecified / Hospital I27.20(ICD-10) Repository 12/02/2017 Unknown R68.83 - Chills Jayy, Aditya Chi Active [place] (without fever) / Community R68.83(ICD-10) Hospital Repository 12/31/2017 Unknown E55.9 - Vitamin D Jayy, Aditya Chi Active [place] deficiency, Community unspecified / Hospital E55.9(ICD-10) Repository 04/01/2018 Unknown S91.012A - Laceration Elise Min Active [facility] without foreign body, Community left ankle, initial Hospital encounter / Repository S91.012A(ICD-10) PROCEDURES PROCEDURES No Procedure Records FoundRESULTS RESULTS LESION (CHOOSE SITE) Observed: 10/12/2018 Status: F Source: [place] 9:45 AM [facility] REPOSITORY Patient: PAULO MILLER : 1935 (83/) Acct Num: [id number] Phys: Jayy ESTRADA,Jusp Unit Num: [id number] Loc: LABSPEC Specimen: [id number] Received: 10/12/18 - 1232 Spec Type: Lesion TISSUES 1 TISSUES: Skin of nose, NOS COMMENT Immunohistochemistry ([id number]) supports the above diagnosis. The lesion measures 3.2 mm in greatest dimension and is completely excised in the planes examined. GROSS DESCRIPTION Received in fixative is one container labeled with the patient's name and designated nose. The specimen consists of an irregular fragment of light carrera excised skin measuring 0.5 x 0.3 x 0.2 cm. The specimen is totally submitted in one cassette. / AM:braulio 10/12/18 TC:0 CPT: 30017 HEADER OPERATION: Not noted PRE-OP DIAGNOSIS: L98.9 TISSUE SUBMITTED: Nose MICROSCOPIC DESCRIPTION Slides are reviewed. MICROSCOPIC DIAGNOSIS Skin lesion of nose, biopsy: Baso-squamous cell carcinoma. Solar elastosis. See Comment. AM:braulio 10/13/18 Signed David Schrader, 10/14/18 <signature on file> Performed By: #### PLES #### [facility] [address] [place], [address] IMMUNOHISTOCHEMISTRY Observed: 10/12/2018 Status: F Source: [place] 12:00 AM [facility] REPOSITORY Patient: PAULO MILLER : 1935 (83/F) Acct Num: [id number] Phys: Jayy ESTRADA,[facility] Unit Num: [id number] Loc: LABSPEC Specimen: [id number] Received: 10/13/18 - 999 Spec Type: IMMUNO TISSUES 1 TISSUES: Skin of nose, NOS SPECIMEN INFORMATION: Tissue Source: Nose Clinical Info: L98.9 Specimen Number: [id number] CPT code: 59440, 71425 x5 METHODOLOGY: Deparaffinized sections of prefer/formalin-fixed tissue or PAP/DQ stained slides are incubated with monoclonal/polyclonal antibodies/oligonucleotide probes. Localization is made via biotin free immunoperoxidase method. Appropriate controls are performed and reacted as expected. Results on target cell population are indicated in the following table: RESULTS: ANTIBODY / CLONE RESULT AE1-3 (AE1/AE3/PCK26) positive P40 (BC28) positive CK5-6 (D5 AND 1684) positive CK14 (LL002) positive CD10 (56C6) negative BCL-2 (bcl-2/100/D5) negative These tests were developed and their performance characteristics determined by [facility]. They may not have been cleared or approved by the U.S. Food and Drug Administration. The FDA has determined that such clearance or approval is not necessary. INTERPRETATION: Skin of nose, excision: Consistent with basosquamous carcinoma. AM:rg 10/14/18 PHYSICIAN AND INSTITUTION [address] [address] Signed David Schrader, DO 10/14/18 <signature on file> Performed By: #### PIMM #### [facility] [address] [place], [address] 12 LEAD ELECTROCARDIOGRAM Observed: 09/17/2018 Status: F Source: [place] 3:30 PM [facility] REPOSITORY [facility] Cardiovascular Services [address] [place] [address] 12 Lead EKG 09/13/18 1512 MR#: [id number] Acct: [id number] Name: PAULO MILLER Rep #: [id number] : 1935 83 From: Dannie Zafar MD Attending Dr: Status: DEP ER Ordering Dr: Waylon Kelly MD Date: 09/13/18 Location: ED Sex: F C Admitted: Test Reason : CP Blood Pressure : / mmHG Vent. Rate : 072 BPM Atrial Rate : 072 BPM P-R Int : 152 ms QRS Dur : 088 ms QT Int : 384 ms P-R-T Axes : 081 039 055 degrees QTc Int : 420 ms Normal sinus rhythm Normal ECG Confirmed by CHARISMA ESTRADA, DANNIE ([id number]), editor farm journal OSIRIS CUBA ([id number]) on 09/17/2018 3:30:27 PM Referred By: Sonny Person Confirmed By:DANNIE ZAFAR MD 09/17/18 1530 Date Dannie Zafar MD CC: MD Dorie Kelly; Sonny Person MD; Aditya Hope MD Signed EMERGENCY DEPARTMENT Observed: 09/13/2018 Status: F Source: [place] SUMMARY 10:47 PM [facility] REPOSITORY [facility] Medical Records Department [address] [place] [address] Emergency Department Summary 09/13/18 1528 MR#: [id number] Acct: [id number] Name: PAULO MILLER Rep #: [id number] : 1935 83 From: Waylon Kelly MD PCP: Jayy ESTRADA,Aditya Erazo Status: DEP ER - ER Visit Summary Date of Service: 09/13/18 Chief Complaint: [] Chest pain today for 10-15 minutes history of cardiac stent CHF History of Present Illness: The patient is a 83 F [] is very stable during good health recently today she developed chest pressure lasted for 10-15 minutes typical of anginal type changes had before. She indicates her cardiac stent and CHF cardiac status is very stable she has not had chest pain for over a year she is followed by Dr. Person. She has not been exerting herself. She said no fever no cough no abdominal pain normal bowel bladder habits review of systems otherwise negative, she does not recall ever having an OR or DVT or PE Physical Examination: [] Currently without pain 170/80 afebrile General, no distress resting comfortably HEENT is generally unremarkable The neck is supple no adenopathy Cardiovascular, regular rate and rhythm Lungs, clear bilateral Abdomen, soft nontender Extremities, 4+ edema chronic for her and stable not different Neurologic, awake alert answering questions appropriately moving all 4 extremities Test Results: [] Emergency Department Course and Treatment: [] Sinus rhythm nothing acute given all the above and her age and her complaints screening labs she is on Coumadin she is allergic to nonsteroidals is taking low-dose aspirin which she took today Screening labs are all generally unremarkable please review those, the chest x-ray showed nothing acute questionable enlargement of mediastinum, recommend CT per radiology, CT of the chest shows no dissection no PE nothing acute 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 she and the son verbalized complete understanding of the above but did not wish to be admitted as tomorrow is [place] she would prefer outpatient management follow-up with physicians soon as possible and return for change in symptoms Treatment Plan: [] Disposition: [] Home stable declined admission Impression: [] Chest pain resolved history of cardiac stents This note was generated with iPowerUp dictation software. It may contain incorrect words, spelling, and punctuation that were not noted in review of the chart prior to signing ED Disposition - Plan for ED Patient: Chief Complaint: Chest Pain Referrals: Aditya Hope Chi, MD [Primary Care Provider] - What to do if you have Problems For any increased pain, shortness of breath, bleeding, nausea or vomiting, chest pain, or any unexpected problems, contact your Primary Care Provider. Call [facility] ([phone]) or report to the closest Emergency Room. Call 911 if necessary. 09/13/182246 <Electronically signed by Waylon Kelly MD> Date Waylon Kelly MD Cosigner Signature (If Indicated): Date CC: Aditya Hope MD DISCHARGE INSTRUCTION Observed: 09/13/2018 Status: F Source: [place] 7:22 PM [facility] REPOSITORY [facility] Medical Records Department [address] [place] [address] Discharge Instruction 09/13/181921 MR#: [id number] Acct: [id number] Name: PAULO MILLER Rep #: [id number] : 1935 83 From: Waylon Kelly MD PCP: Aditya Hope MD, Chi Status: REG ER ED Disposition - Plan for ED Patient: Chief Complaint: Chest Pain Instructions: ED Chest Pain Atypical Unkn Cause Referrals: Aditya Hope Chi, MD [Primary Care Provider] - What to do if you have Problems For any increased pain, shortness of breath, bleeding, nausea or vomiting, chest pain, or any unexpected problems, contact your Primary Care Provider. Call [facility] ([phone]) or report to the closest Emergency Room. Call 911 if necessary. 09/13/181921 <Electronically signed by Waylon Kelly MD> Date Waylon Kelly MD Cosigner Signature (If Indicated): Date CC: Aditya Hope MD CTA CHEST W/WO Observed: 09/13/2018 Status: F Source: [place] CONTRAST 4:32 PM [facility] REPOSITORY [facility] Imaging Services [address] [address] CTA Chest W/WO Contrast MR#: [id number] Acct: [id number] Name: PAULO MILLER Rep #: [id number] : 1935 F 83 From: Parvez Abdullahi DO PCP: Aditya Hope MD, Chi Status: REG ER Study: CTA Chest W/WO Contrast Date of Exam: 09/13/18 Exam# [id number] Ordering Dr: Waylon Kelly MD STUDY: CTA CHEST REASON FOR EXAM: Female, 83 years old. Swelling onset chest pain radiating to back RADIATION DOSAGE (If Supplied By Facility): CTDIvol = ( 14.90 ) mGy, DLP = ( 538.42 ) mGycm TECHNIQUE: The examination was performed with the intravenous administration of 100 ml of Isovue 370 contrast material. Post-processing of the angiographic images was performed, with multiplanar reformation and 3D reconstruction. Individualized dose optimization techniques were used for this CT. COMPARISON: None. FINDINGS: Normal enhancement of the main pulmonary artery and right and left pulmonary arteries. Normal enhancement of the bilateral peripheral pulmonary arteries. There is no demonstrated pulmonary embolism. There is atherosclerotic calcification of the aortic arch with tortuosity. No evidence of thoracic aortic dissection however, there appears to be saccular aneurysm of the aortic arch posteriorly measuring roughly 2 cm long by 1 cm wide. There is no evidence of intramural hematoma. No evidence of perforation. Borderline cardiomegaly. Normal pericardium Normal mediastinum. Normal hilar regions. Normal visualized trachea and bronchi. The lungs are well expanded. Normal pulmonary parenchyma. Normal pleura. Normal chest wall structures. There are degenerative changes of thoracic spine. Normal visualized upper abdomen. CT/CTA Chest W/WO Contrast IMPRESSION: 1. Negative for pulmonary embolism 2. 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 Possibly penetrating. No evidence of dissection, perforation or rupture. 3. Lungs are clear Electronically Signed: Parvez Abdullahi DO at 18:08 EST Tel , Service support , CC: MD Dorie Kelly; Aditya Hope MD Painter Airbrush: Signed CHEST 1 VIEW Observed: 09/13/2018 Status: F Source: [place] (PORTABLE) 3:25 PM [facility] REPOSITORY [facility] Imaging Services [address] [place] [address] Chest 1 View (Portable) MR#: [id number] Acct: [id number] Name: PAULO MILLER Rep #: [id number] : 1935 F 83 From: Parvez Abdullahi DO PCP: Aditya Hope MD, Chi Status: PRE ER Study: Chest 1 View (Portable) Date of Exam: 09/13/18 Exam# [id number] Ordering Dr: Waylon Kelly MD STUDY: X-RAY CHEST REASON FOR EXAM: Female, 83 years old. Sudden onset precordial chest pain TECHNIQUE: Single AP portable view of the chest. COMPARISON: 07/22/2017 FINDINGS: As compared to the exam from last year, there appears to be questionable widening of the mediastinum. Lungs are essentially clear. There is borderline cardiomegaly. Normal mediastinum and dean. Normal visualized pulmonary arteries. Normal visualized aortic arch and descending thoracic aorta. There are diffuse degenerative changes of the visualized thoracic spine. There is degenerative osteoarthritis of the bilateral shoulders. There is no demonstrated abnormality of the visualized soft tissue structures of the upper abdomen. RAD/Chest 1 View (Portable) IMPRESSION: Lungs are essentially clear. Questionable widening of the mediastinum. Recommend CT chest to evaluate for thoracic aortic injury. Electronically Signed: Parvez Abdullahi DO at 15:38 EST Tel , Service support , CC: MD Dorie Kelly; Aditya Hope MD Painter Airbrush: Signed CBC W/DIFF, AUTOMATED Collected: 09/13/2018 Status: F Source: [place] 3:15 PM [facility] REPOSITORY TYPE CODE TESTS RESULT OUT OF RANGE REFERENCE UNITS LAB L100.1000 4.4-11.0 K/mm3 Normal WBC 10.4 LAB L100.1200 4.2-5.4 M/mm3 Normal RBC 4.22 LAB L100.1300 12.0-15.0 g/dl Normal HGB 13.3 LAB L100.1400 37-47 % Normal HCT 41.0 LAB L100.1500 81-99 fL Normal MCV 97.2 LAB L100.1600 27.0-32.0 pg Normal MCH 31.5 LAB L100.1700 32-36 g/gl Normal MCHC 32.4 LAB L100.1810 11.6-14.6 % Normal RDW CV 13.8 LAB L100.1820 35.1-43.9 fl High RDW SD 49.4 LAB L100.1900 150-450 K/mm3 Normal PLT 177 LAB L100.2000 6.2-12.0 fl Normal MPV 11.2 LAB L100.2100 47-70 % High NEUT% 76.8 LAB L100.2200 19-41 % Low LY% 14.1 LAB L100.2300 0-10 % Normal MONO% 7.1 LAB L100.2400 0-5 % Normal EO% 1.6 LAB L100.2500 0-1 % Normal BASO% 0.2 LAB L100.2550 0.0-0.9 % Normal IM GRAN % 0.200 Result Comment: IG% - Immature Granulocytes (promyelocytes, myelocytes and metamyelocytes) > 1% indicates that a LEFT SHIFT is Present. LAB L100.2620 2.0-7.7 X10 3/uL High Absolute Neut 8.0 LAB L100.2720 0.83-4.51 X10 3/ul Normal Absolute Lymph 1.47 Performed By: #### L100.0100 #### [facility] [address] [place], [place], [address] BASIC METABOLIC Collected: 09/13/2018 Status: F Source: [place] PROFILE (BMP) 3:15 PM [facility] REPOSITORY TYPE CODE TESTS RESULT OUT OF RANGE REFERENCE UNITS LAB L501.0100 74-106 mg/dL High GLU 109 Result Comment: Fasting Glucose result from 100 to 125 mg/dL suggests IMPAIRED HOMEOSTASIS per A.D.A. criteria. Please note revised GLUCOSE reference range effective 2017. LAB L501.1000 7-18 mg/dL High BUN 25 LAB L501.1100 0.55-1.02 mg/dL Normal CREAT,SERUM 0.90 Result Comment: The validity of the calculated GFR AND GFRAA in patients over 70 years has not been determined. Clinical correlation is essential. LAB L501.1110 >60 mL/min Normal EST GFR 64 Result Comment: Non- GFR Calc LAB L501.1115 >60 mL/min Normal EST GFR - AA 77 Result Comment: GFR Calc LAB L501.1255 ml/min Normal Estimated CRCL 40.90 LAB L501.1300 10-20 RATIO High BUN/CRE 27.7 LAB L501.2200 8.5-10 mg/dL Normal .1 CA 9.7 LAB L501.5300 136-14 mmol/L Normal 5 NA 142 LAB L501.5600 3.5-5. mmol/L Normal 1 K 3.5 LAB L501.5900 98-107 mmol/L Normal CL 106 LAB L501.6100 21.0-3 mmol/L Normal 2.0 CO2 28.0 LAB L501.6200 5-15 Normal GAP 8 Performed By: #### L500.2500, L501.4010 #### [facility] [address] [place], [place], [address] TROPONIN-I Collected: 09/13/2018 Status: F Source: [place] 3:15 PM [facility] REPOSITORY TYPE CODE TESTS RESULT OUT OF RANGE REFERENCE UNITS LAB L501.4010 <0.045 ng/mL Normal < 0.015 TROPONIN-I Result Comment: TROPONIN-I EXPECTED VALUES <0.045 Negative 0.045 - 0.590 Consistent with Cardiac Damage > OR = 0.600 Critical Value Not every elevated troponin is indicative of OR. These values should be used with clinical judgement in examining the patient's clinical picture for diagnosis. To establish a diagnosis of OR versus myocardial injury, there must be a demonstrated rise and/or fall in the troponin values, in addition to ischemic symptoms, EKG changes, new regional wall motion abnormality, and/or angiographical evidence. PLEASE NOTE: REFERENCE RANGES EDITED 18 Performed By: #### L500.2500, L501.4010 #### [facility] [address] [place], [address] PROTHROMBIN TIME W/INR Collected: 09/13/2018 Status: F Source: [place] 3:15 PM [facility] REPOSITORY TYPE CODE TESTS RESULT OUT OF RANGE REFERENCE UNITS LAB L300.4150 11.7-14.9 SECONDS High PROTIME 19.0 LAB L300.4200 Normal INR 1.6 Performed By: #### L300.3900 #### [facility] [address] [place], [address] BNP,B-TYPE NATRIURETIC Collected: 09/13/2018 Status: F Source: [place] PEPTIDE 3:15 PM [facility] REPOSITORY TYPE CODE TESTS RESULT OUT OF RANGE REFERENCE UNITS LAB L503.6620 0-100 pg/mL High B-TYPE 130.1 MARTHA PEP Performed By: #### L503.6620 #### [facility] [facility] [address] [place], [address] KNEE 4 OR MORE Observed: 08/23/2018 Status: F Source: [place] VIEWS 12:19 PM [facility] REPOSITORY [facility] Imaging Services [address] [place] [address] Knee 4 or More Views MR#: [id number] Acct: [id number] Name: PAULO MILLER Rep #: [id number] : 1935 F 83 From: Mariano Headley MD PCP: Jayy ESTRADA,Aditya Chi Status: REG CLI Study: Knee 4 or More Views Date of Exam: 08/23/18 Exam# [id number] Ordering Dr: Aditya Hope MD ADDENDUM by Fer Headley on 08/23/18 at 1512 ADDENDUM 4 images of the right knee [...] ADDENDUM by Fer Headley on 08/23/18 at 1512 RAD/Knee 4 or More Views 08/23/181517 Date [...] Service support , CC: Aditya Hope MD Painter Airbrush: Signed KNEE 4 OR MORE Observed: 08/23/2018 Status: F Source: [place] VIEWS 12:11 PM [facility] REPOSITORY [facility] Imaging Services [address] [place] [address] [place] [address] Knee 4 or More Views MR#: [id number] Acct: [id number] Name: PAULO MILLER Rep #: [id number] : 1935 F 83 From: Mariano Headley MD PCP: Jayy ESTRADA,Aditya Erazo Status: REG CLI Study: Knee 4 or More Views Date of Exam: 08/23/18 Exam# [id number] Ordering Dr: Aditya Hope MD STUDY: X-RAY [...] Service support , CC: Aditya Hope MD Painter Airbrush: Signed CARDIOLOGY VISIT Observed: 06/22/2018 Status: F Source: [place] REPORT 3:40 PM [facility] REPOSITORY [facility] [address] [place] [address] OFFICE VISIT Date of Service: 06/22/18 MR#: [id number] Acct: [id number] Name: PAULO MILLER Rep #: [id number] : 1935 Provider: Sonny Person MD Age/Sex: 82/F Location: [facility] Status: Signed HPI HPI Chief Complaint: Follow-up visit. Details: PAULO MILLER, [...] H H Intake Visit Reasons: 6 M FU Monitor Technician Required: No Is patient in pain?: No [...] PO DAILY 05/12/17 [History Confirmed 06/22/18] Tiotropium [place] [Spiriva 18 MCG] 1 puff INHALATION DAILY [...] PO DAILY tab 06/22/18 [History Confirmed 06/22/18] PFSH Medical History nursing home current use of anticoagulant (Chronic) Essential hypertension (Chronic) DDD (degenerative disc disease), lumbar (Chronic) Dyspnea on exertion (Resolved) Palpitations (Resolved) Pulmonary hypertension (Chronic) Atherosclerotic heart disease of [place] coronary artery without angina pectoris (Chronic) hold worker use of drug (Chronic) Paroxysmal tachycardia (Chronic) [...] Presence of stent in coronary artery Z95.5 STEFANIA to prox LAD November 2013 @ [facility] Plan She does have a history of [...] Hope MD Observed: 05/25/2018 Status: F Source: [place] CULTURE, URINE 4:41 PM [facility] REPOSITORY Urine Culture ORGANISM 1: Presumptive E. coli [place] Count >100,000 Presumptive E. coli: REACTION Amoxacillin/Clavulanic [...] >=320 R (NF) indicates non-formulary drug at [facility]. Approval by Infectious Disease Specialist required before non-formulary drugs may be ordered and/or dispensed. Performed By: #### M100.0650 #### [facility] [place], [address] COMPREHENSIVE METABOLIC Collected: 05/06/2018 Status: F Source: [place] PROFIL 3:35 PM [facility] REPOSITORY TYPE CODE TESTS [...] Performed By: #### L500.4050, L501.1400, L501.9520 #### [facility] [address] [place], [place], [address] URIC ACID Collected: 05/06/2018 Status: F Source: [place] 3:35 PM [facility] REPOSITORY TYPE CODE TESTS RESULT OUT OF RANGE REFERENCE UNITS LAB L501.1400 2.6-6.0 mg/dL High URIC 6.4 Result Comment: The drugs N-Acetylcysteine and Metamizole may falsely depress this assay. Performed By: #### L500.4050, L501.1400, L501.9520 #### [facility] [address] [place], [place], [address] THYROID STIM HORMONE Collected: 05/06/2018 Status: F Source: [place] (TSH) 3:35 PM [facility] REPOSITORY TYPE CODE TESTS RESULT OUT OF RANGE REFERENCE UNITS LAB L501.9520 0.358-3.74 uIU/mL Low TSH 0.33 Performed By: #### L500.4050, L501.1400, L501.9520 #### [facility] [address] [place], [address] CBC W/DIFF, AUTOMATED Collected: 05/06/2018 Status: F Source: [place] 3:35 PM [facility] REPOSITORY TYPE CODE TESTS [...] Lymph 1.46 Performed By: #### L100.0100 #### [facility] [address] [place], [address] VITAMIN D,25 HYDROXY Collected: 05/06/2018 Status: F Source: [place] 3:35 PM [facility] REPOSITORY TYPE CODE TESTS RESULT OUT OF RANGE REFERENCE UNITS LAB L506.1000 29.95-100.01 ng/mL Normal Vitamin D 64.5 25-OH Result Comment: Vitamin D 25(OH) Status Range Deficiency <20 ng/mL (50nmol/L) Insuffciency 20 - 30 ng/mL (50 - 75 nmol/L) Sufficiency 30 - 100 ng/mL (75 - 250 nmol/L) Toxicity >100 ng/mL (>250 nmol/L) Performed By: #### L506.1000 #### [facility] [address], [address] CHIROPRACTIC REPORT Observed: 04/01/2018 Status: F Source: [place] 1:10 PM [facility] REPOSITORY [facility] [address] [place] [address] [place] [address] OFFICE VISIT Date of Service: 03/30/18 MR#: [id number] Acct: [id number] Name: PAULO MILLER Neftaly Rep #: [id number] : 1935 Provider: Cesia Scott D.C. Age/Sex: 82/F [place] [facility] Status: Signed Intake Vital Signs03/30/18 Height 5 [...] 11/24/13 [History Confirmed 12/28/17] Hydrocodone Bitart/Apap 5-325 [[place] 5/325] 1 tab PO Q6H PRN PRN [...] PO DAILY 05/12/17 [History Confirmed 12/28/17] Tiotropium [place] [Spiriva 18 MCG] 1 puff INHALATION DAILY [...] mg PO DAILY #90 tab 01/15/18 [Rx] [facility] Medical History DDD (degenerative disc disease), lumbar (Chronic) Dyspnea on exertion (Acute) Palpitations (Acute) Pulmonary hypertension (Chronic) Atherosclerotic heart disease of [place] coronary artery without angina pectoris (Chronic) nursing home use of drug (Chronic) Paroxysmal tachycardia (Chronic) [...] Additional Codes Procedures - Manipulation: 3-4 regions (13412) 04/01/18 1310 <Electronically signed by Cesia Scott D.C.> Date Cesia Scott D.C. Cosigner Signature: Date (if applicable) CC: CHIROPRACTIC REPORT Observed: 03/29/2018 Status: F Source: [place] 9:40 AM [facility] [address] [place] [address] OFFICE VISIT Date of Service: 03/23/18 MR#: [id number] Acct: [id number] Name: PAULO MILLER Rep #: [id number] : 1935 Provider: Cesia Scott D.C. 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 Cosigner Signature: Date (if applicable) CC: CHIROPRACTIC REPORT Observed: 03/18/2018 Status: F Source: [place] 5:03 PM [facility] [address] [place] [address] OFFICE VISIT Date of Service: 03/18/18 MR#: [id number] Acct: [id number] Name: PAULO MILLER Rep #: [id number] : 1935 Provider: Cesia Scott D.C. Age/Sex: 82/F Location: [facility] Status: Signed Intake Vital Signs03/18/18 Height 5 [...] 11/24/13 [History Confirmed 12/28/17] Hydrocodone Bitart/Apap 5-325 [[place] 5/325] 1 tab PO Q6H PRN PRN [...] PO DAILY 05/12/17 [History Confirmed 12/28/17] Tiotropium [place] [Spiriva 18 MCG] 1 puff INHALATION DAILY [...] mg PO DAILY #90 tab 01/15/18 [Rx] [facility] Medical History DDD (degenerative disc disease), lumbar (Chronic) Dyspnea on exertion (Acute) Palpitations (Acute) Pulmonary hypertension (Chronic) Atherosclerotic heart disease of [place] coronary artery without angina pectoris (Chronic) hold worker use of drug (Chronic) Paroxysmal tachycardia (Chronic) [...] Additional Codes Procedures - Manipulation: 3-4 regions (95452) 03/18/18 7632 <Electronically signed by Cesia Scott D.C.> Date Cesia Scott D.C. Cosigner Signature: Date (if applicable) CC: CHIROPRACTIC REPORT Observed: 03/16/2018 Status: F Source: [place] 10:26 AM [facility] [address] [place] [address] OFFICE VISIT Date of Service: 03/11/18 MR#: [id number] Acct: [id number] Name: PAULO MILLER Rep #: [id number] : 1935 Provider: Cesia Scott D.C. Age/Sex: 82/F Location: [facility] Status: Signed Intake Vital Signs03/11/18 Height 5 [...] 11/24/13 [History Confirmed 12/28/17] Hydrocodone Bitart/Apap 5-325 [[place] 5/325] 1 tab PO Q6H PRN PRN [...] PO DAILY 05/12/17 [History Confirmed 12/28/17] Tiotropium [place] [Spiriva 18 MCG] 1 puff INHALATION DAILY [...] Pulmonary hypertension (Chronic) Atherosclerotic heart disease of [place] coronary artery without angina pectoris (Chronic) nursing home use of drug (Chronic) Paroxysmal tachycardia (Chronic) [...] Additional Codes Procedures - Manipulation: 3-4 regions (30635) 03/16/18 1026 <Electronically signed by Cesia Scott D.C.> Date Cesia Scott D.C. Cosigner Signature: Date (if applicable) CC: CHIROPRACTIC REPORT Observed: 03/04/2018 Status: F Source: [place] 3:35 PM [facility] [address] [place] [address] OFFICE VISIT Date of Service: 03/04/18 MR#: [id number] Acct: [id number] Name: PAULO MILLER Rep #: [id number] : 1935 Provider: Cesia Scott D.C. Age/Sex: 82/F Location: [facility] Status: Signed Intake Vital Signs03/04/18 Height 5 [...] 11/24/13 [History Confirmed 12/28/17] Hydrocodone Bitart/Apap 5-325 [[place] 5/325] 1 tab PO Q6H PRN PRN [...] PO DAILY 05/12/17 [History Confirmed 12/28/17] Tiotropium [place] [Spiriva 18 MCG] 1 puff INHALATION DAILY [...] mg PO DAILY #90 tab 01/15/18 [Rx] [facility] Medical History DDD (degenerative disc disease), lumbar (Chronic) Dyspnea on exertion (Acute) Palpitations (Acute) Pulmonary hypertension (Chronic) Atherosclerotic heart disease of [place] coronary artery without angina pectoris (Chronic) nursing home use of drug (Chronic) Paroxysmal tachycardia (Chronic) [...] Additional Codes Procedures - Manipulation: 3-4 regions (06386) Procedures - Traction, Mechanical: Yes (82558) 03/04/18 1535 <Electronically signed by Cesia Scott D.C.> Date Cesia Scott D.C. Cosigner Signature: Date (if applicable) CC: CHIROPRACTIC REPORT Observed: 03/04/2018 Status: F Source: [place] 12:01 PM [facility] [address] [place] [address] OFFICE VISIT Date of Service: 02/18/18 MR#: [id number] Acct: [id number] Name: PAULO MILLER Rep #: [id number] : 1935 Provider: Cesia Scott D.C. Age/Sex: 82/F Location: [facility] Status: Signed Intake Vital Signs02/18/18 Height 5 [...] 11/24/13 [History Confirmed 12/28/17] Hydrocodone Bitart/Apap 5-325 [[place] 5/325] 1 tab PO Q6H PRN PRN [...] PO DAILY 05/12/17 [History Confirmed 12/28/17] Tiotropium [place] [Spiriva 18 MCG] 1 puff INHALATION DAILY [...] Pulmonary hypertension (Chronic) Atherosclerotic heart disease of [place] coronary artery without angina pectoris (Chronic) hold worker use of drug (Chronic) Paroxysmal tachycardia (Chronic) [...] ECHOCARDIOGRAM COMPLETE Observed: 12/30/2017 Status: F Source: [place] 5:36 PM [facility] REPOSITORY [facility] Cardiovascular Services [address] [place] [address] Echo Complete 12/30/17 1304 MR#: [id number] Acct: [id number] Name: PAULO MILLER Rep #: [id number] : 1935 82 From: Sonny Person MD Attending Dr: Bernard Bethea NP Status: REG CLI Ordering Dr: Bernard Bethea TAKE OUT WAITER/WAITRESS-C Date: 12/30/17 Location: [facility] Sex: F C Admitted: Reason For Study: [...] Physician: Aditya Hope Chi Performed By: Christiane Bethea, DENTON, RVT 12/30/17 1735 Date Sonny Person MD CC: HAMLET Bethea; Aditya Hope MD Date Dictated: 12/30/17 1304 Date Transcribed: 12/30/171734 Painter Airbrush: Signed CARDIOLOGY VISIT Observed: 12/30/2017 Status: F Source: [place] REPORT 8:22 AM [facility] REPOSITORY [facility] [address] [place] [address]. [address] [place] [address] OFFICE VISIT Date of Service: 12/28/17 MR#: [id number] Acct: [id number] Name: PAULO MILLER Rep #: [id number] : 1935 Provider: TAKE OUT WAITER/WAITRESS Bernard H Roof Age/Sex: 82/F Location: [facility] Status: Signed HPI HPI Details: PAULO MILLER, [...] Reasons: 6 M FU (pt r/s from [facility] 3-) Monitor Technician Required: No Accompanied by: none Is patient [...] 11/24/13 [History Confirmed 12/28/17] Hydrocodone Bitart/Apap 5-325 [[place] 5/325] 1 tab PO Q6H PRN PRN [...] PO DAILY 05/12/17 [History Confirmed 12/28/17] Tiotropium [place] [Spiriva 18 MCG] 1 puff INHALATION DAILY [...] Pulmonary hypertension (Chronic) Atherosclerotic heart disease of [place] coronary artery without angina pectoris (Chronic) hold worker use of drug (Chronic) Paroxysmal tachycardia (Chronic) [...] RCA. Assessment AND Plan 1. Palpitations R00.2 NALINI Hunt Patient states 2 episodes of palpitations over [...] current medications. 2. Dyspnea on exertion R06.09 NALINI Hunt Echocardiogram from November 2014 should an estimate ejection fraction of 60%. Patient describes dyspnea on exertion. She states several weeks ago she developed bronchitis and has not recovered. Since this is not improved, she will undergo a repeat echocardiogram for further evaluation. We will wait for the results of the echocardiogram for further recommendation. Orders Orders: 3. Atherosclerosis of [place] coronary artery of [place] heart without angina pectoris I25.10 STEFANIA to prox LAD November 2013 @ [facility] Varghese - NALINI Bueno Stress test from April [...] without acute cor pulmonale, unspecified chronicity I26.99 [place] - NALINI Bueno Patient's shortness of breath [...] prior to saving. 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 transplanted heart: [place] heart Essential hypertension I10 Hypertension type: essential hypertension Other pulmonary embolism without acute cor pulmonale, unspecified chronicity I26.99 Acute cor pulmonale presence: without acute cor pulmonale Chronicity: unspecified Pulmonary embolism type: other Pure hypercholesterolemia E78.00; E78.0 Hyperlipidemia type: pure hypercholesterolemia Coding Level of Care Code Off vis,est,level 3 Diagnoses Palpitations R00.2 Dyspnea on exertion R06.09 Atherosclerosis of [place] coronary artery of [place] heart without angina pectoris I25.10 [place] vs. transplanted heart: [place] heart Essential hypertension I10 Hypertension type: essential hypertension Other pulmonary embolism without acute cor pulmonale, unspecified chronicity I26.99 Acute cor pulmonale presence: without acute cor pulmonale Chronicity: unspecified Pulmonary embolism type: other Pure hypercholesterolemia E78.00; E78.0 Hyperlipidemia type: pure hypercholesterolemia 12/29/17 0738 <Electronically signed by Bernard Bethea TAKE OUT WAITER/WAITRESS-C> Date Bernard Bethea TAKE OUT WAITER/WAITRESS-C 12/30/17 0822<Electronically signed by Sonny Person MD> Cosigner Signature: Date (if applicable) Sonny Person MD CC: Aditya Hope MD Observed: 12/02/2017 Status: F Source: [place] RESPIRATORY PANEL 3:58 PM [facility] MOLECULAR REPOSITORY RP PANEL [...] acid amplification Performed By: #### M100.638 #### [facility] [address] [place] [address], [address] CBC W/DIFF, AUTOMATED Collected: 11/04/2017 Status: F Source: [place] 2:20 PM [facility] REPOSITORY TYPE CODE TESTS RESULT OUT [...] Lymph 1.91 Performed By: #### L100.0100 #### [facility] [address] [place], [place], [address] COMPREHENSIVE METABOLIC Collected: 11/04/2017 Status: F Source: [facility] 2:20 PM [facility] REPOSITORY TYPE CODE TESTS [...] 10 Performed By: #### L500.4050, L501.9520 #### [facility] [address] [place], [place], [address] THYROID STIM HORMONE Collected: 11/04/2017 Status: F Source: [place] (TSH) 2:20 PM [facility] REPOSITORY TYPE CODE TESTS RESULT OUT OF RANGE REFERENCE UNITS LAB L501.9520 0.358-3.74 uIU/mL Normal TSH 0.40 Performed By: #### L500.4050, L501.9520 #### [facility] [address] [place], [place], [address] VITAMIN D,25 HYDROXY Collected: 11/04/2017 Status: F Source: [place] 2:20 PM [facility] REPOSITORY TYPE CODE TESTS RESULT OUT OF RANGE REFERENCE UNITS LAB L506.1000 19.95-100.01 ng/mL Normal Vitamin D 35.6 25-OH Result Comment: Vitamin D 25(OH) Status Range Deficiency <20 ng/mL (50nmol/L) Insuffciency 20 - 30 ng/mL (50 - 75 nmol/L) Sufficiency 30 - 100 ng/mL (75 - 250 nmol/L) Toxicity >100 ng/mL (>250 nmol/L) Performed By: #### L506.1000 #### [facility] [address] [facility] [place], [address] EMERGENCY DEPARTMENT Observed: 10/23/2017 Status: F Source: [place] SUMMARY 12:16 AM [facility] REPOSITORY [facility] Medical Records Department [address] [place] [address] Emergency Department Summary 10/22/17 2357 MR#: [id number] Acct: [id number] Name: PAULO MILLER Rep #: [id number] : 1935 82 From: Elise Min MD PCP: Aditya Hope MD, Chi Status: REG ER - ER Visit Summary [...] left ankle This note was generated with RenRen Headhuntingation software. It may contain incorrect words, spelling, [...] your Primary Care Provider. Call [facility] ([phone]) or report to the closest Emergency Room. Call 911 if necessary. 10/23/17 0016 <Electronically signed by Elise Min MD> Date Elise Min MD Cosigner Signature (If Indicated): Date CC: Aditya Hope MD DISCHARGE INSTRUCTION Observed: 10/23/2017 Status: F Source: [place] 12:01 AM [facility] REPOSITORY [facility] Medical Records Department [address] [place] [address] Discharge Instruction 10/22/17 2359 MR#: [id number] Acct: [id number] Name: PAULO MILLER Rep #: [id number] : 1935 82 From: Elise Min MD [...] your Primary Care Provider. Call [facility] ([phone]) or report to the closest Emergency Room. Call 911 if necessary. 10/23/17 0001 <Electronically signed by Elise Min MD> Date Elise Min MD Cosigner Signature (If Indicated): Date CC: Aditya Hope MD ALLERGIES ALLERGIES DATE TYPE / CODE NAME / CODE REACTION SEVERITY SOURCE 06/17/2018 Drug ibuprofen/F0 Unknown Unknown [place] [facility] Allergy/4160 [id number]([facility] 13665(SNOMED OR) Repository CT) ENCOUNTERS ENCOUNTERS ADMIT/DISCHARGE ACCOUNT ADMITTING ENCOUNTER LOCATION SOURCE NUMBER CLASS 10/12/2018 [id number] Ambulatory [place] 2 [facility] ing:LABSPEC Repository 09/13/2018/ [id number] [place] 1 [facility] ing:ED Repository 08/23/2018 [id number] Ambulatory [place] 5 [facility] ing:RAD Repository 06/22/2018/ [id number] Ambulatory [facility] [place] 8 6 [facility] Repository 06/17/2018 [id number] Ambulatory [facility]B [place] 5 [facility] Repository 05/25/2018 [id number] Ambulatory [place] 9 [facility] Hospital ing:POLAB3 Repository 05/06/2018 [id number] [place] 2 [facility] ing:POLAB3 Repository 03/30/2018/ [id number] Ambulatory [facility]:B [place] 8 2 [facility] Hospital Repository 03/23/2018/ [id number] Ambulatory [facility]:B [place] 8 3 [facility] Repository 03/18/2018/ [id number] Ambulatory [facility] [place] 8 2 [facility] [place] 03/11/2018/ [id number] Ambulatory [facility]:B [place] 8 3 [facility] Hospital Repository 03/04/2018/ [id number] Ambulatory [facility]:B [place] 8 8 [facility] Hospital Repository 03/01/2018/ [id number] Ambulatory [facility]:B [place] 8 1 [facility] Repository 02/25/2018/ [id number] Ambulatory [facility]:B [place] 8 8 [facility] Repository 02/18/2018 [id number] Amb[place] 0 [facility] Hospital ing:HPRAD Repository 02/18/2018/ [id number] Ambulatory [facility]:B [place] 8 5 [facility] Hospital Repository 12/30/2017 [id number] [place] 8 [facility] Hospital ing:CVS Repository 12/30/2017 [id number] Ambulatory [place] 9 [facility] Hospital ing:CVS Repository 12/30/2017 [id number] Ambulatory [facility]:W [place] 7 [facility] Repository 12/30/2017 [id number] Ambulatory [facility]:W [place] 1 [facility] Repository 12/28/2017/ [id number] Ambulatory [facility]:B [place] 8 4 [facility] Repository 12/25/2017 [id number] Ambulatory [facility]:B [place] 2 [facility] Repository 12/15/2017 [id number] Ambulatory [facility]:B [place] 5 [facility] Repository 12/02/2017 [id number] [place] 4 [facility] Hospital ing:PSN Repository 11/04/2017 [id number] Amb[place] 9 [facility] Hospital ing:POLAB3 Repository 10/22/2017/ [id number] Emergency [place] 8 8 [facility] Hospital ing:ED Repository PAYERS PAYERS ENCOUNTER GUARANTOR PAYER SUBSCRIBER SOURCE 10/12/2018 PAULO Higginbotham Primary [address] [id number] Insurance:MEDICARE WERANSLEYDOB: [facility] PART A [facility] [id number] [place] [address] Number: Repository [phone]: [phone] [id number] [phone] () Date:2018-10-12 10/12/2018 Secondary PAULO Higginbotham [place] Insurance:CIGNAPolicy WERTZDOB: Community Number: [id number] Hospital [id number] Repository Date:[id number], [place] [address]KF: 10/12/2018 Tertiary NOT GIVENUNK [place] Insurance:SELF PAY [facility] Number: Effective Repository Date:2018-10-12 09/13/2018 PAULO Higginbotham Primary PAULO [place] [id number] Insurance:MEDICARE WERTZDOB: Community [place] PART A [id number] Repository [id number]: [phone] [id number] [phone] () Date:2018-09-13 09/13/2018 Secondary PAULO Higginbotham [place] Insurance:CIGNAPolicy WERTZDOB: Community Number: [id number] Hospital [id number] Repository Date:[id number], [place] [address]OE: 09/13/2018 Tertiary NOT GIVENUNK [place] Insurance:SELF PAY [facility] Number: Effective Repository Date:2018-09-13 08/23/2018 PAULO Higginbotham Primary PAULO Higginbotham [place] [id number] Insurance:MEDICARE WERTZDOB: Community BAYBERRY PART A olic [id number] Repository [address]Emr: [phone] [id number] [phone] () Date:2018-08-23 08/23/2018 Secondary PAULO Higginbotham [place] Insurance:CIGNAPolicy WERTZDOB: Community Number: [id number] Hospital [id number] Repository Date:2453-48-28[address], [place] [address]EX: 08/23/2018 Tertiary NOT GIVENUNK [place] Insurance:SELF PAY [facility] Number: Effective Repository Date:2018-08-23 06/22/2018 PAULO Higginbotham Primary PAULO Higginbotham [place] [id number] Insurance:MEDICARE WERTZDOB: Community [place] PART A [facility] [id number] Number: Repository [address]Ohs: 330 [id number] [phone] (HP) Date:2017-12-28 06/22/2018 Secondary PAULO Higginbotham [place] Insurance:CIGNAPolicy WERTZDOB: [facility] Number: [id number] Hospital [id number] Repository Date:2429-65-81GU RAZ 386217YOXHMFNMQUD, [place] [address]VJ: 06/22/2018 Tertiary NOT GIVENUNK [place] Insurance:SELF PAY [facility] Number: Effective Repository Date:2018-06-22 06/17/2018 PAULO Higginbotham Primary PAULO Higginbotham [place] [id number] Insurance:MEDICARE WERTZDOB: Community [place] PART A [facility] [id number] [place] Number: Repository [address]Jug: 330 [id number] [phone] () Date:2018-06-17 06/17/2018 Secondary NOT GIVENUNK [place] Insurance:SELF PAY [facility] Number: Effective Repository Date:2018-06-17 05/25/2018 PAULO Higginbotham Primary PAULO Higginbotham [place] [id number] Insurance:MEDICARE WERTZDOB: Community [place] PART A [facility] [id number] Number: Repository [address]Qwa: 330 [id number] [phone] (HP) Date:2018-05-25 05/25/2018 Secondary NOT GIVENUNK [place] Insurance:SELF PAY [facility] Number: Effective Repository Date:2018-05-25 05/06/2018 PAULO Higginbotham Primary PAULO Higginbotham [place] [id number] Insurance:MEDICARE WERTZDOB: Community [place] PART A [facility] [id number] Number: Repository [address]Wza: 330 [id number] [phone] (HP) Date:2018-05-06 05/06/2018 Secondary NOT GIVENUNK [place] Insurance:SELF PAY [facility] Effective Repository Date:2018-05-06 03/30/2018 PAULO Higginbotham Primary PAULO Higginbotham [place] [id number] Insurance:MEDICARE WERTZDOB: Community [place] PART A [facility] [id number][facility] [place] Number: Repository [address]Gfl: 330 [id number] [phone] (HP) Date:2018-03-23 03/30/2018 Secondary PAULO M [place] Insurance:AMER WERTZDOB: [facility] [id number] Number: Repository Effective Date:2018-03-23 03/30/2018 Tertiary NOT GIVENUNK [place] Insurance:SELF PAY [facility] Number: Effective Repository Date:2018-03-30 03/23/2018 PAULO Higginbotham Primary PAULO Higginbohtam [place] [id number] Insurance:MEDICARE WERTZDOB: Community [place] PART A [facility] [id number] [place] Number: Repository [address]Xyl: 330 [id number] [phone] () Date:2018-03-18 03/23/2018 Secondary PAULO Higginbotham [place] Insurance:CIGNAPolicy WERTZDOB: [facility] Number: [id number] Hospital [id number] Repository Date:5898-03-87VY RAZ 142716XNUMVCSGMKI [place] [address]VQ: 03/23/2018 Tertiary NOT GIVENUNK [place] Insurance:SELF PAY [facility] Number: Effective Repository Date:2018-03-23 03/18/2018 PAULO Higginbotham Primary PAULO Higginbotham [place] [id number] Insurance:MEDICARE WERTZDOB: Community [place] PART A [facility] [id number] Number: Repository [address]Ikt: 330 [id number] [phone] () Date:2018-03-11 03/18/2018 Secondary PAULO M [place] Insurance:AMER WERTZDOB: [facility] [id number] Number: Repository Effective Date:2018-03-11 03/18/2018 Tertiary NOT GIVENUNK [place] Insurance:SELF PAY [facility] Number: Effective Repository Date:2018-03-18 03/11/2018 PAULO Higginbotham Primary PAULO Higginbotham [place] [id number] Insurance:MEDICARE WERTZDOB: Community [place] PART A [facility] [id number], [place] Number: Repository [address]Ogo: 330 [id number] [phone] () Date:2018-03-04 03/11/2018 Secondary PAULO Higginbotham [place] Insurance:CIGNAPolicy WERTZDOB: [facility] Number: [id number] Hospital [id number] Repository Date:5472-99-10[address]UPCQAYFHIJN, [place] [address]ZV: 03/11/2018 Tertiary NOT GIVENUNK [place] Insurance:SELF PAY [facility] Number: Effective Repository Date:2018-03-11 03/04/2018 PAULO Higginbotham Primary PAULO Higginbotham [place] [id number] Insurance:MEDICARE WERTZDOB: Community [place] PART A [facility] [id number], [place] Number: Repository [address]Eub: 330 [id number] [phone] () Date:2018-03-03 03/04/2018 Secondary PAULO Higginbotham [place] Insurance:CIGNAPolicy WERTZDOB: Community Number: [id number] Hospital [id number] Repository Date:5718-88-61FA [address]FIAUFPPCUUZ, [place] [address]OR: 03/04/2018 Tertiary NOT GIVENUNK [place] Insurance:SELF PAY [facility] Number: Effective Repository Date:2018-03-04 03/01/2018 PAULO Higginbotham Primary PAULO Higginbotham [place] [id number] Insurance:MEDICARE WERTZDOB: Community [place] PART A [facility] [id number], [place] Number: Repository [address]Jyk: 330 [id number] [phone] () Date:2018-03-05 03/01/2018 Secondary PAULO Higginbotham [place] Insurance:AMER WERTZDOB: [facility] [id number] [place], [place] [address]Policy Number: Repository [id number] Date:2018-01-19 03/01/2018 Tertiary NOT GIVENUNK [place] Insurance:SELF PAY [facility] Number: Effective Repository Date:2018-03-05 02/25/2018 PAULO Higginbotham Primary PAULO Higginbotham [place] [id number] Insurance:MEDICARE WERTZDOB: Community [place] PART A [facility] [id number] [facility] [place] Number: Repository [address]Gth: 330 [id number] [phone] () Date:2018-02-18 02/25/2018 Secondary PAULO Higginbotham [place] Insurance:AMER WERTZDOB: [facility] [id number] [place], [place] [address]Policy Number: Repository [id number] Date:2018-02-09 02/25/2018 Tertiary NOT GIVENUNK [place] Insurance:SELF PAY [facility] Number: Effective Repository Date:2018-03-05 02/18/2018 PAULO Higginbotham Primary NOT GIVENUNK [place] [id number] Insurance:SELF [place] Number: Effective Repository [address]Oii: (330) Date:2018-02-18 [phone] () 02/18/2018 PAULO Higginbotham Primary PAULO Higginbotham [place] [id number] Insurance:MEDICARE WERTZDOB: [facility] BAYBERRY PART A [facility] [id number], [place] Number: Repository [address]Tmq: 330 [id number] [phone] () Date:2018-02-09 02/18/2018 Secondary PAULO Higginbotham [place] Insurance:AMER WERTZDOB: [address] Number: Repository [id number] Date:2018-02-09 02/18/2018 Tertiary NOT GIVENUNK [place] Insurance:SELF PAY [facility] Number: Effective Repository Date:2018-02-18 12/30/2017 PAULO Higginbotham Primary NOT GIVENUNK [place] [id number] Insurance:SELF [place] Number: Effective Repository [address]Tzp: 330) Date:2017-12-28 [phone] (HP) 12/30/2017 PAULO Higginbotham Primary PAULO Higginbotham [place] [id number] Insurance:MEDICARE WERTZDOB: Community [place] PART A [facility] [id number] [place] Number[place] Repository [address]Ulc: [phone] [id number] [phone] (HP) Date:2017-12-28 12/30/2017 Secondary PAULO Higginbotham [place] Insurance:CIGNAPolicy WERTZDOB: [facility] Number: [id number] Hospital [id number] Repository Date:3486-07-23[address]DUZPDIDZCDO, [place] [address]HV: 12/30/2017 Tertiary NOT GIVENUNK [place] Insurance:SELF PAY [facility] Number: Effective Repository Date:2017-12-28 12/30/2017 PAULO Higginbotham Primary PAULO Higginbotham [place] [id number] Insurance:MEDICARE WERTZDOB: Community [place] PART A [facility] [id number] [facility], [place] Number: Repository [address]Abg: 330 [id number] [phone] () Date:2017-12-28 12/30/2017 Secondary PAULO Higginbotham [place] Insurance:CIGNAPolicy WERTZDOB: Community Number: [id number] [facility] [id number] Repository Date:4042-67-55ZW [address]GLBYDPSGWHN, [place] [address]VI: 12/30/2017 Tertiary NOT GIVENUNK [place] Insurance:SELF PAY [facility] Number: Effective Repository Date:2017-12-30 12/30/2017 PAULO Higginbotham Primary PAULO Higginbotham [place] [id number] Insurance:MEDICARE WERTZDOB: Community [place] PART A [facility] [id number] Community [facility], [place] Number[place] Repository [address]Bsi: [phone] [id number] [phone] () Date:2017-12-28 12/30/2017 Secondary PAULO Higginbotham [place] Insurance:CIGNAPolicy WERTZDOB: Community Number: [id number] [facility] [id number] Repository Date:7408-06-41EY [address]PHISIIWIXCL, [place] [address]CL: 12/30/2017 Tertiary NOT GIVENUNK [place] Insurance:SELF PAY [facility] Number: Effective Repository Date:2017-12-30 12/28/2017 PAULO Higginbotham Primary PAULO Higginbotham [place] [id number] Insurance:MEDICARE WERTZDOB: Community [place] PART A [facility] [id number] Number: Repository [address]Lji: 330 [id number] [phone] () Date:2017-12-10 12/28/2017 Secondary PAULO Higginbotham [place] Insurance:CIGNAPolicy WERTZDOB: Community Number: [id number] Hospital [id number] Repository Date:3732-36-18RS [address]BOPQHDKWQFP, [place] [address]YV: 12/28/2017 Tertiary NOT GIVENUNK [place] Insurance:SELF PAY [facility] Number: Effective Repository Date:2017-12-11 12/25/2017 PAULO Higginbotham Primary PAULO Higginbotham [place] [id number] Insurance:MEDICARE WERTZDOB: Community [place] PART A [facility] [id number] Number: Repository [address]Fba: 330 [id number] [phone] () Date:2017-12-25 12/25/2017 Secondary PAULO Higginbotham [place] Insurance:CIGNAPolicy WERTZDOB: Community Number: [id number] Hospital [id number] Repository Date:2479-89-75[address]RBTXHZFGFMG, [place] [address]MG: 12/25/2017 Tertiary NOT GIVENUNK [place] Insurance:SELF PAY [facility] Number: Effective Repository Date:2017-12-25 12/15/2017 Paulo Higginbotham Primary NOT GIVENUNK [place] [id number] Insurance:SELF [place]Y [place] Number: Effective Repository [address]Ysm: 330) Date:2017-08-30 [phone] (HP) 12/02/2017 Paulo Higginbotham Primary Paulo Higginbotham [place] [id number] Insurance:MEDICARE WertzDOB: Community [place] PART A [facility] [id number] Number[place] Repository [address]Hba: 330 [id number] [phone] (HP) Date:2017-12-02 12/02/2017 Secondary Paulo Higginbotham [place] Insurance:CIGNAPolicy WertzDOB: [facility] Number: [id number] Hospital [id number] Repository Date:6597-29-06JL [address]PVGXDLXKALO, [place] [address]VR: 12/02/2017 Tertiary NOT GIVENUNK [place] Insurance:SELF PAY [facility] Number: Effective Repository Date:2017-12-02 11/04/2017 PAULO Higginbotham Primary PAULO Higginbotham [place] [id number] Insurance:MEDICARE WERTZDOB: Community [place] PART A [facility] [id number] Community [facility] Number: Repository [address]Pht: 330 [id number] [phone] () Date:2017-11-04 11/04/2017 Secondary PAULO Higginbotham [place] Insurance:CIGNAPolicy WERTZDOB: Community Number: [id number] Hospital [id number] Repository Date:8029-55-43EM [address]QQNBEEVRRXH, [place] [address]HY: 11/04/2017 Tertiary NOT GIVENUNK [place] Insurance:SELF PAY [facility] Number: Effective Repository Date:2017-11-04 10/22/2017 PAULO Higginbotham Primary PAULO Higginbotham [place] [id number] Insurance:MEDICARE WERTZDOB: Community [place] PART A [facility] [id number] Number[place] Repository [address]Exv: [phone] [id number] [phone] () Date:2017-10-22 10/22/2017 Secondary PAULO [place] Insurance:[place] ELIZABETH: [facility] Number: [id number] Hospital [id number] Repository Date:7499-60-87XK RAZ 843107UECYJNLASHY, [place] [address]JE: 10/22/2017 Tertiary NOT GIVENMARY [place] Insurance:SELF PAY [facility] Number: Effective Repository Date:2017-10-22
== END ==
PROVIDERS: Family Provider Family Medicine Geriatric Medicine; PCP Family Medicine Geriatric Medicine; Visit Provider Family Medicine Geriatric Medicine
DX: C44.321 Squamous cell carcinoma of skin of nose (principal); L57.8 Other skin changes due to chronic exposure to nonionizing radiation
CPT/HCPCS: 88305; 88341; 88342

== ENCOUNTER → 2018-11-04 14:52 | Outpatient (CLI) | payer MEDICARE, OTHER, SELFPAY ==
[2018-11-04 17:05] LABS: Absolute Neutrophil Count 7.6 X10^3/uL (2.0-7.7); Basophil# 0.03 X10^3/uL; Basophil% 0.3 % (0-1); Eosinophil# 0.28 X10^3/uL; Eosinophils% 2.7 % (0-5); Hematocrit 44.4 % (37-47); Hemoglobin 14.3 g/dl (12.0-15.0); Lymphocyte % 14.6 % (19-41); Mean Corp Hgb Conc 32.2 g/gl (32-36); Mean Corpuscular Hgb 32.1 pg (27.0-32.0); Mean Corpuscular Volume 99.6 fL (81-99); Mean Platelet Vol. 12.2 fl (6.2-12.0); Monocyte# 0.88 X10^3/uL; Monocyte% 8.5 % (0-10); Neutrophil # 7.58 X10^3/uL (2.7-7.7); Neutrophil % 73.6 % (47-70); Platelet Count 231 K/mm3 (150-450); RBC Distribution Width CV 13.4 % (11.6-14.6); RBC Distribution Width SD 48.2 fl (35.1-43.9); Red Blood Count 4.46 M/mm3 (4.2-5.4); White Blood Count 10.3 K/mm3 (4.4-11.0)
[2018-11-04 17:06] LABS: Differential Indicated SCAN CRITERIA MET; POSITIVE COUNT NO; POSITIVE DIFFERENTIAL NO; POSITIVE MORPHOLOGY YES
[2018-11-04 17:17] LABS: Vitamin D,25 Hydroxy 63.6 ng/mL (29.95-100.01)
[2018-11-04 17:19] LABS: ALB/GLOB Ratio 1.2 RATIO (0.9-2.4); AST(SGOT) 20 U/L (15-37); Alanine Aminotransfer ALT/SGPT 26 U/L (13-56); Albumin, Serum 3.6 g/dL (3.2-5.0); Alkaline Phosphatase 122 U/L (45-117); Anion Gap 11 (5-15); BUN 20 mg/dL (7-18); BUN/Creat Ratio 21.4 RATIO (10-20); Calcium,Total 10.1 mg/dL (8.5-10.1); Chloride 110 mmol/L (98-107); Creatinine, Serum 0.94 mg/dL (0.55-1.02); EST Glomerular Filtration Rate 61 mL/min (>60); Est Glom Filt Rate - Afr Amer 74 mL/min (>60); Globulin 3.1 g/dL (2.2-4.2); Glucose 89 mg/dL (74-106); Potassium 3.6 mmol/L (3.5-5.1); Protein, Total 6.7 g/dL (6.4-8.2); Sodium Level 145 mmol/L (136-145); Uric Acid 5.9 mg/dL (2.6-6.0)
[2018-11-04 18:26] LABS: Platelet Estimate ADEQUATE (ADEQ); Red Cell Morphology NORM C+C NORMAL (NORM C&C)
== END ==
PROVIDERS: Family Provider Family Medicine Geriatric Medicine; PCP Family Medicine Geriatric Medicine; Visit Provider Family Medicine Geriatric Medicine
DX: E55.9 Vitamin D deficiency, unspecified (principal); I10 Essential (primary) hypertension; M10.9 Gout, unspecified; N39.0 Urinary tract infection, site not specified
CPT/HCPCS: 36415; 80053; 82306; 84443; 84550; 85025; 87086

== ENCOUNTER → 2018-11-04 16:15 | Outpatient (CLI) | payer MEDICARE, OTHER, SELFPAY ==
--- NOTE | 2018-11-04 16:19 | CT_ITS ---
STUDY: CT BRAIN WITHOUT CONTRAST REASON FOR EXAM: Female, 83 years old. Headache after a fall RADIATION DOSAGE (If Supplied By Facility): CTDIvol = ( 44.99 ) mGy, DLP = ( 745.49 ) mGycm TECHNIQUE: Transaxial CT imaging of the brain was performed without administration of intravenous contrast material. Individualized dose optimization techniques were used for this CT. COMPARISON: 04/14/2016 FINDINGS: Normal soft tissue structures. Normal calvarium. There is mild cerebral atrophy with widening of the extra-axial spaces and ventricular dilatation. There are areas of decreased attenuation within the white matter tracts of the supratentorial brain, consistent with microvascular disease changes. Normal basal ganglia and thalami. Normal brainstem. Normal cerebellum. There is no intracranial hemorrhage. There are no findings of an acute ischemic infarction. Normal visualized paranasal sinuses. CT/Brain/Head without Contrast IMPRESSION: Chronic involutional changes of the brain. No acute hemorrhage Electronically Signed: Fer Turner MD at 17:03 EST , Service support ,
--- NOTE | 2018-11-04 16:40 | RAD_ITS ---
STUDY: X-RAY - SACRUM/COCCYX REASON FOR EXAM: Female, 83 years old. Pain after a fall TECHNIQUE: 5 view(s) of the sacrum and coccyx were obtained. COMPARISON: None. FINDINGS: Bones are demineralized. 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 The presacral soft tissue structures are unremarkable. RAD/Sacrum-Coccyx min 2 Views IMPRESSION: Degenerative changes, no acute findings Electronically Signed: Fer Turner MD at 17:22 EST , Service support ,
== END ==
PROVIDERS: Family Provider Family Medicine Geriatric Medicine; PCP Family Medicine Geriatric Medicine; Referring Provider Family Medicine Geriatric Medicine; Visit Provider Family Medicine Geriatric Medicine
DX: S09.90XA Unspecified injury of head, initial encounter (principal); W19.XXXA Unspecified fall, initial encounter; E55.9 Vitamin D deficiency, unspecified; I10 Essential (primary) hypertension; M10.9 Gout, unspecified; N39.0 Urinary tract infection, site not specified
CPT/HCPCS: 36415; 70450; 72220; 80053; 82306; 84443; 84550; 85025; 87086

== ENCOUNTER → 2018-11-26 13:43 | Outpatient (CLI) | payer MEDICARE, OTHER, SELFPAY ==
--- NOTE | 2018-11-26 13:45 | US_ITS ---
STUDY: RENAL ULTRASOUND - COMPLETE REASON FOR EXAM: Female, 83 years old. Renal stones TECHNIQUE: Ultrasound evaluation of the kidneys was performed with real-time and static bruce-scale imaging. COMPARISON: None. FINDINGS: RIGHT KIDNEY: Normal location of the right kidney, which is normal in size. The right kidney measures 10.9 x 4.5 x 4.7 cm. There is a normal cortex of the right kidney. The renal cortex measures 1.6 cm. There is no right renal mass or cyst. There are no right renal calculi. There is no right hydronephrosis. DISTAL RIGHT URETER: There is non-visualization of the distal right ureter. There is a visualized right ureteral jet. LEFT KIDNEY: Normal location of the left kidney, which is normal in size. The left kidney measures 10.5 x 5.0 x 5.1 cm. There is a normal cortex of the left kidney. The renal cortex measures 1.4 cm. There is no left renal mass or cyst. There are no left renal calculi. There is no left hydronephrosis. Probable extrarenal pelvis. DISTAL LEFT URETER: There is non-visualization of the distal left ureter. There is a visualized left ureteral jet. BLADDER: The distended urinary bladder has a volume of 81 ml. There is a normal wall thickness of the distended urinary bladder. There is no demonstrated mass within the urinary bladder. There are no demonstrated bladder calculi. US/Kidney and Bladder IMPRESSION: Normal ultrasound of the kidneys and urinary bladder. Electronically Signed: Harsh Jhaveri DO at 23:50 EST Tel [phone], Service support ,
== END ==
PROVIDERS: Family Provider Family Medicine Geriatric Medicine; PCP Family Medicine Geriatric Medicine; Referring Provider Urology; Visit Provider Urology
DX: N20.0 Calculus of kidney (principal)
CPT/HCPCS: 76770

== ENCOUNTER → 2019-02-08 | Outpatient (CLI) | payer MEDICARE, OTHER, SELFPAY ==
[2018-12-22 13:01] VITALS: BMI 36.3
--- NOTE | 2019-02-08 15:45 | RAD_ITS ---
STUDY: X-RAY CHEST REASON FOR EXAM: Female, 83 years old. Congestive heart failure TECHNIQUE: Frontal and lateral views of the chest. COMPARISON: 09/13/18 FINDINGS: The lungs are clear and expanded. There is no demonstrated pleural abnormality. Normal size heart. Normal mediastinum and dean. Normal visualized pulmonary arteries. There is atherosclerotic calcification of the aortic arch with tortuosity. Normal visualized thoracic spine. Normal visualized ribs, clavicles, and shoulders. There is no demonstrated abnormality of the visualized soft tissue structures of the upper abdomen. RAD/Chest PA and Lateral IMPRESSION: Normal x-ray examination of the chest. Electronically Signed: Silviano Can MD at 22:57 EDT , Service support ,
[2019-02-08 17:37] LABS: Absolute Lymphocyte Count 1.55 X10^3/ul (0.83-4.51); Absolute Neutrophil Count 7.8 X10^3/uL (2.0-7.7); Basophil# 0.06 X10^3/uL; Basophil% 0.5 % (0-1); Eosinophil# 0.78 X10^3/uL; Eosinophils% 6.9 % (0-5); Hematocrit 42.3 % (37-47); Hemoglobin 13.8 g/dl (12.0-15.0); Lymphocyte # 1.55 X10^3/ul (4.0); Lymphocyte % 13.8 % (19-41); Mean Corp Hgb Conc 32.6 g/gl (32-36); Mean Corpuscular Hgb 31.2 pg (27.0-32.0); Mean Corpuscular Volume 95.5 fL (81-99); Mean Platelet Vol. 12.3 fl (6.2-12.0); Monocyte# 1.04 X10^3/uL; Monocyte% 9.3 % (0-10); Neutrophil # 7.79 X10^3/uL (2.7-7.7); Neutrophil % 69.3 % (47-70); Platelet Count 215 K/mm3 (150-450); RBC Distribution Width CV 13.3 % (11.6-14.6); RBC Distribution Width SD 45.1 fl (35.1-43.9); Red Blood Count 4.43 M/mm3 (4.2-5.4); White Blood Count 11.2 K/mm3 (4.4-11.0)
[2019-02-08 18:00] LABS: POSITIVE COUNT NO; POSITIVE DIFFERENTIAL NO; POSITIVE MORPHOLOGY NO
[2019-02-08 18:01] LABS: Vitamin D,25 Hydroxy 78.8 ng/mL (29.95-100.01)
[2019-02-08 18:11] LABS: AST(SGOT) 20 U/L (15-37); Alanine Aminotransfer ALT/SGPT 23 U/L (13-56); Albumin, Serum 3.2 g/dL (3.2-5.0); Alkaline Phosphatase 141 U/L (45-117); Anion Gap 9 (5-15); BUN 16 mg/dL (7-18); BUN/Creat Ratio 19.5 RATIO (10-20); Calcium,Total 9.9 mg/dL (8.5-10.1); Chloride 107 mmol/L (98-107); Creatinine, Serum 0.82 mg/dL (0.55-1.02); EST Glomerular Filtration Rate 71 mL/min (>60); Est Glom Filt Rate - Afr Amer 86 mL/min (>60); Globulin 3.3 g/dL (2.2-4.2); Glucose 79 mg/dL (74-106); Potassium 3.8 mmol/L (3.5-5.1); Protein, Total 6.5 g/dL (6.4-8.2); Sodium Level 142 mmol/L (136-145); Thyroid Stim Hormone (TSH) 0.19 uIU/mL (0.358-3.74); Uric Acid 5.2 mg/dL (2.6-6.0)
== END | disposition home or self-care (01) ==
LOC: POLAB3 15:17 → RAD 15:40
PROVIDERS: Family Provider Family Medicine Geriatric Medicine; PCP Family Medicine Geriatric Medicine; Referring Provider Family Medicine Geriatric Medicine; Visit Provider Family Medicine Geriatric Medicine
DX: I11.0 Hypertensive heart disease with heart failure (principal); I50.9 Heart failure, unspecified; E55.9 Vitamin D deficiency, unspecified; M10.9 Gout, unspecified
CPT/HCPCS: 36415; 71046; 80053; 82306; 84443; 84550; 85025

== ENCOUNTER → 2019-04-27 | Outpatient (CLI) | payer MEDICARE, OTHER, SELFPAY ==
[2018-12-22 13:01] VITALS: BMI 36.3
[2019-04-27 12:38] LABS: Absolute Lymphocyte Count 1.31 X10^3/uL (0.83-4.51); Absolute Neutrophil Count 7.1 X10^3/uL (2.0-7.7); Basophil# 0.07 X10^3/uL; Basophil% 0.7 % (0-1); Eosinophil# 0.73 X10^3/uL; Eosinophils% 7.3 % (0-5); Hematocrit 42.7 % (37-47); Hemoglobin 13.7 g/dL (12.0-15.0); Lymphocyte # 1.31 X10^3/ul (4.0); Mean Corp Hgb Conc 32.1 g/dL (32-36); Mean Corpuscular Hgb 31.7 pg (27.0-32.0); Mean Corpuscular Volume 98.8 fL (81-99); Monocyte# 0.79 X10^3/uL; Monocyte% 7.9 % (0-10); NRBC Flagged by Analyzer 0 % (0-5); Neutrophil # 7.12 X10^3/uL (2.7-7.7); Neutrophil % 70.8 % (47-70); Platelet Count 175 K/mm3 (150-450); RBC Distribution Width CV 12.9 % (11.6-14.6); Red Blood Count 4.32 M/mm3 (4.2-5.4); White Blood Count 10.1 K/mm3 (4.4-11.0)
[2019-04-27 13:06] LABS: Anion Gap 4 (5-15); BUN 19 mg/dL (7-18); BUN/Creat Ratio 21.8 RATIO (10-20); Chloride 108 mmol/L (98-107); Creatinine, Serum 0.87 mg/dL (0.55-1.02); EST Glomerular Filtration Rate 66 mL/min (>60); Est Glom Filt Rate - Afr Amer 80 mL/min (>60); Glucose 108 mg/dL (74-106); Potassium 3.6 mmol/L (3.5-5.1); Sodium Level 141 mmol/L (136-145)
[2019-04-27 13:14] LABS: BNP,B-Type NATRIURETIC PEPTIDE 114.2 pg/mL (0-100)
== END | disposition home or self-care (01) ==
LOC: POLAB3 10:42
PROVIDERS: Family Provider Family Medicine Geriatric Medicine; PCP Family Medicine Geriatric Medicine; Visit Provider Family Medicine Geriatric Medicine
DX: I50.33 Acute on chronic diastolic (congestive) heart failure (principal); R06.02 Shortness of breath; R60.9 Edema, unspecified
CPT/HCPCS: 36415; 80048; 83880; 85025

== ENCOUNTER → 2019-05-03 | Outpatient (CLI) | payer MEDICARE, OTHER, SELFPAY ==
[2018-12-22 13:01] VITALS: BMI 36.3
[2019-05-03 13:03] LABS: Absolute Lymphocyte Count 1.35 X10^3/uL (0.83-4.51); Absolute Neutrophil Count 6.7 X10^3/uL (2.0-7.7); Basophil# 0.06 X10^3/uL; Basophil% 0.6 % (0-1); Eosinophil# 1.08 X10^3/uL; Eosinophils% 10.8 % (0-5); Hemoglobin 14.1 g/dL (12.0-15.0); Lymphocyte # 1.35 X10^3/ul (4.0); Lymphocyte % 13.5 % (19-41); Mean Corpuscular Volume 99.8 fL (81-99); Mean Platelet Vol. 11.9 fl (6.2-12.0); Monocyte# 0.75 X10^3/uL; Monocyte% 7.5 % (0-10); NRBC Flagged by Analyzer 0 % (0-5); Neutrophil # 6.71 X10^3/uL (2.7-7.7); Neutrophil % 67.1 % (47-70); Platelet Count 204 K/mm3 (150-450); RBC Distribution Width CV 12.6 % (11.6-14.6); RBC Distribution Width SD 46.4 fl (35.1-43.9); Red Blood Count 4.41 M/mm3 (4.2-5.4)
[2019-05-03 13:21] LABS: Anion Gap 6 (5-15); BUN 27 mg/dL (7-18); BUN/Creat Ratio 26.5 RATIO (10-20); Calcium,Total 10.1 mg/dL (8.5-10.1); Chloride 107 mmol/L (98-107); Creatinine, Serum 1.02 mg/dL (0.55-1.02); EST Glomerular Filtration Rate 55 mL/min (>60); Est Glom Filt Rate - Afr Amer 66 mL/min (>60); Glucose 98 mg/dL (74-106); Potassium 3.6 mmol/L (3.5-5.1); Sodium Level 140 mmol/L (136-145)
== END | disposition home or self-care (01) ==
LOC: POLAB3 11:54
PROVIDERS: Family Provider Family Medicine Geriatric Medicine; PCP Family Medicine Geriatric Medicine; Visit Provider Family Medicine Geriatric Medicine
DX: N18.3 Chronic kidney disease, stage 3 (moderate) (principal); N39.0 Urinary tract infection, site not specified; R60.9 Edema, unspecified
CPT/HCPCS: 36415; 80048; 85025; 87086; 87088

== ENCOUNTER → 2019-05-16 | Outpatient (CLI) | payer MEDICARE, OTHER, SELFPAY ==
[2018-12-22 13:01] VITALS: BMI 36.3
[2019-05-16 16:21] LABS: Absolute Lymphocyte Count 1.63 X10^3/uL (0.83-4.51); Absolute Neutrophil Count 6.5 X10^3/uL (2.0-7.7); Basophil# 0.07 X10^3/uL; Basophil% 0.7 % (0-1); Eosinophil# 0.77 X10^3/uL; Eosinophils% 7.7 % (0-5); Hematocrit 43.8 % (37-47); Lymphocyte # 1.63 X10^3/ul (4.0); Lymphocyte % 16.4 % (19-41); Mean Corpuscular Hgb 32.3 pg (27.0-32.0); Mean Corpuscular Volume 100.9 fL (81-99); Monocyte# 0.89 X10^3/uL; NRBC Flagged by Analyzer 0 % (0-5); Neutrophil # 6.52 X10^3/uL (2.7-7.7); Neutrophil % 65.6 % (47-70); Platelet Count 239 K/mm3 (150-450); RBC Distribution Width CV 12.3 % (11.6-14.6); RBC Distribution Width SD 46.3 fl (35.1-43.9); Red Blood Count 4.34 M/mm3 (4.2-5.4); White Blood Count 9.9 K/mm3 (4.4-11.0)
--- NOTE | 2019-05-16 16:35 | RAD_ITS ---
STUDY: X-RAY - ABDOMEN/PELVIS REASON FOR EXAM: Female, 83 years old. Fecal impaction TECHNIQUE: AP supine and upright views of the abdomen and pelvis. COMPARISON: None. FINDINGS: Normal visualized lung bases. Constipation pattern is present. Nonobstructive bowel gas pattern. There is no demonstrated free abdominal air. The visualized liver, spleen and kidneys are grossly normal in size and morphology. Multiple gallstones. There are diffuse degenerative changes of the visualized lumbar spine. RAD/Abd Inc Decub and/or Erect IMPRESSION: Constipation pattern is present. Nonobstructive bowel gas pattern. Multiple gallstones. Electronically Signed: Ignacio Morris MD at 17:08 EDT Tel , Service support ,
[2019-05-16 16:40] LABS: Vitamin D,25 Hydroxy 84.5 ng/mL (29.95-100.01)
[2019-05-16 16:46] LABS: ALB/GLOB Ratio 0.9 RATIO (0.9-2.4); AST(SGOT) 15 U/L (15-37); Alanine Aminotransfer ALT/SGPT 21 U/L (13-56); Albumin, Serum 3.2 g/dL (3.2-5.0); Alkaline Phosphatase 124 U/L (45-117); Anion Gap 7 (5-15); BUN 20 mg/dL (7-18); BUN/Creat Ratio 21.9 RATIO (10-20); Calcium,Total 9.7 mg/dL (8.5-10.1); Chloride 107 mmol/L (98-107); Creatinine, Serum 0.91 mg/dL (0.55-1.02); EST Glomerular Filtration Rate 62 mL/min (>60); Est Glom Filt Rate - Afr Amer 76 mL/min (>60); Globulin 3.4 g/dL (2.2-4.2); Glucose 68 mg/dL (74-106); Potassium 4.1 mmol/L (3.5-5.1); Protein, Total 6.6 g/dL (6.4-8.2); Sodium Level 143 mmol/L (136-145); Thyroid Stim Hormone (TSH) 0.06 uIU/mL (0.358-3.74); Uric Acid 5.6 mg/dL (2.6-6.0)
== END | disposition home or self-care (01) ==
LOC: POLAB3 09:04 → RAD 16:26
PROVIDERS: Family Provider Family Medicine Geriatric Medicine; PCP Family Medicine Geriatric Medicine; Referring Provider Family Medicine Geriatric Medicine; Visit Provider Family Medicine Geriatric Medicine
DX: K56.41 Fecal impaction (principal); E55.9 Vitamin D deficiency, unspecified; I10 Essential (primary) hypertension; M10.9 Gout, unspecified
CPT/HCPCS: 36415; 74019; 80053; 82306; 84443; 84550; 85025

== ENCOUNTER → 2019-05-25 | Outpatient (CLI) | payer MEDICARE, OTHER, SELFPAY ==
[2018-12-22 13:01] VITALS: BMI 36.3
--- NOTE | 2019-05-25 06:57 | CT_ITS ---
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 There is no evidence of perforation. No intramural hematoma. The overall appearance is similar to the prior study. There is calcific plaque in the aorta similar to prior study. Pulmary arteries: No evidence of pulmonary emboli The heart is not enlarged. No pericardial effusion. No pleural effusion. No axillary or mediastinal lymphadenopathy is identified. The lungs dependent atelectasis in the lung bases. Pneumpothorax: none The trachea and central airways appear patent . Limited views of the upper abdomen cholelithiasis No acute osseous abnormality. 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 at 2229 Reported and signed by: Amber Gillis DO Electronically Signed: Amber Gillis DO at 22:28 EDT Tel , Service support ,
== END | disposition home or self-care (01) ==
LOC: CT 06:56
PROVIDERS: Family Provider Family Medicine Geriatric Medicine; PCP Family Medicine Geriatric Medicine; Referring Provider Family Medicine Geriatric Medicine; Visit Provider Family Medicine Geriatric Medicine
DX: I71.2 Thoracic aortic aneurysm, without rupture (principal)
CPT/HCPCS: 71275; Q9967

== ENCOUNTER → 2019-06-16 11:57 | Outpatient (CLI) | payer MEDICARE, OTHER, SELFPAY ==
[2018-12-22 13:01] VITALS: BMI 36.3
--- NOTE | 2019-06-16 12:12 | RAD_ITS ---
STUDY: X-RAY CHEST REASON FOR EXAM: Female, 83 years old. Increasing shortness of breath TECHNIQUE: PA and lateral views of the chest. COMPARISON: Prior study of 02/08/2019 FINDINGS: The lungs are clear and expanded. There is no demonstrated pleural abnormality. Normal size heart. Normal mediastinum and dean. Normal visualized pulmonary arteries. There are calcified plaques of the aortic arch. Normal visualized thoracic spine. Normal visualized ribs, clavicles, and shoulders. There is no demonstrated abnormality of the visualized soft tissue structures of the upper abdomen. RAD/Chest PA and Lateral IMPRESSION: Calcified plaques of the aortic arch. No acute cardiopulmonary disease process is seen. Electronically Signed: Luis Cortez MD at 22:29 EDT , Service support ,
[2019-06-16 15:54] LABS: Absolute Lymphocyte Count 1.95 X10^3/uL (0.83-4.51); Absolute Neutrophil Count 6.7 X10^3/uL (2.0-7.7); Basophil# 0.07 X10^3/uL; Basophil% 0.7 % (0-1); Eosinophil# 0.94 X10^3/uL; Eosinophils% 8.8 % (0-5); Hematocrit 43.8 % (37-47); Hemoglobin 13.8 g/dL (12.0-15.0); Lymphocyte # 1.95 X10^3/ul (4.0); Lymphocyte % 18.2 % (19-41); Mean Corp Hgb Conc 31.5 g/dL (32-36); Mean Corpuscular Hgb 31.4 pg (27.0-32.0); Mean Corpuscular Volume 99.5 fL (81-99); Mean Platelet Vol. 12.1 fl (6.2-12.0); Monocyte# 0.97 X10^3/uL; NRBC Flagged by Analyzer 0 % (0-5); Neutrophil # 6.74 X10^3/uL (2.7-7.7); Neutrophil % 62.7 % (47-70); Platelet Count 215 K/mm3 (150-450); RBC Distribution Width CV 12.7 % (11.6-14.6); White Blood Count 10.7 K/mm3 (4.4-11.0)
[2019-06-16 16:34] LABS: ALB/GLOB Ratio 1.1 RATIO (0.9-2.4); AST(SGOT) 20 U/L (15-37); Alanine Aminotransfer ALT/SGPT 22 U/L (13-56); Albumin, Serum 3.3 g/dL (3.2-5.0); Alkaline Phosphatase 127 U/L (45-117); Anion Gap 8 (5-15); BUN 20 mg/dL (7-18); BUN/Creat Ratio 22.7 RATIO (10-20); Calcium,Total 10.1 mg/dL (8.5-10.1); Chloride 107 mmol/L (98-107); Creatinine, Serum 0.88 mg/dL (0.55-1.02); EST Glomerular Filtration Rate 65 mL/min (>60); Est Glom Filt Rate - Afr Amer 79 mL/min (>60); Globulin 3.1 g/dL (2.2-4.2); Glucose 102 mg/dL (74-106); Potassium 4.1 mmol/L (3.5-5.1); Protein, Total 6.4 g/dL (6.4-8.2); Sodium Level 141 mmol/L (136-145)
[2019-06-16 16:42] LABS: BNP,B-Type NATRIURETIC PEPTIDE 122.2 pg/mL (0-100)
== END ==
LOC: POLAB3 11:58 → RAD 12:11
PROVIDERS: Family Provider Family Medicine Geriatric Medicine; PCP Family Medicine Geriatric Medicine; Referring Provider Family Medicine Geriatric Medicine; Visit Provider Family Medicine Geriatric Medicine
DX: R06.02 Shortness of breath (principal); N39.0 Urinary tract infection, site not specified
CPT/HCPCS: 36415; 71046; 80053; 83880; 84443; 85025; 87086; 87088; 87186

== ENCOUNTER → 2019-06-24 12:29 | Outpatient (CLI) | payer MEDICARE, OTHER, SELFPAY ==
[2018-12-22 13:01] VITALS: BMI 36.3
[2019-06-24 13:33] LABS: Anion Gap 5 (5-15); BUN 32 mg/dL (7-18); BUN/Creat Ratio 28.8 RATIO (10-20); Calcium,Total 10.1 mg/dL (8.5-10.1); Chloride 106 mmol/L (98-107); Creatinine, Serum 1.11 mg/dL (0.55-1.02); EST Glomerular Filtration Rate 50 mL/min (>60); Est Glom Filt Rate - Afr Amer 60 mL/min (>60); Glucose 117 mg/dL (74-106); Potassium 3.9 mmol/L (3.5-5.1); Sodium Level 141 mmol/L (136-145)
== END ==
PROVIDERS: Family Provider Family Medicine Geriatric Medicine; PCP Family Medicine Geriatric Medicine; Visit Provider Family Medicine Geriatric Medicine
DX: J81.0 Acute pulmonary edema (principal)
CPT/HCPCS: 36415; 80048

== ENCOUNTER → 2019-06-27 14:34 | Outpatient (CLI) | payer MEDICARE, OTHER, SELFPAY ==
[2018-12-22 13:01] VITALS: BMI 36.3
--- NOTE | 2019-06-27 14:36 | ECHOD_ITS ---
Reason For Study: SOB Procedure This was a 2D Doppler, Color Flow transthoracic echocardiogram. Exam performed in department. Left Ventricle Normal LV size. Left ventricular systolic function is normal. The estimated ejection fraction is 65 %. Stage 2 diastolic dysfunction. No regional wall motion abnormalities noted. Right Ventricle Normal RV size. Normal systolic function. Atria Normal left atrium. Normal right atrium. Mitral Valve Normal mitral valve. Tricuspid Valve Normal tricuspid valve. Mild (1+) tricuspid valve insufficiency. Pulmonary artery systolic pressure is 52 mmHg. Moderate pulmonary hypertension. Aortic Valve Normal aortic valve. Pulmonic Valve Normal pulmonic valve. Great Vessels Normal aortic root. The pulmonary artery is normal size. Normal inferior vena cava. Pericardium/Pleural No pericardial effusion. MMode/2D Measurements & Calculations LVIDd: 4.0 cm IVSd: 1.1 cm Ao root diam: 3.3 cm LVIDs: 2.3 cm LVPWd: 1.0 cm RVDd: 3.9 cm FS: 41.3 % LAV(MOD-bp): 57.0 ml LVAd ap4: 19.8 cm2 SV(MOD-sp4): 32.7 ml LAV(MOD-bp) Indexed: 28.0 ml/m2 EDV(MOD-sp4): 49.0 ml LAV(MOD-sp2): 50.0 ml EDV(sp4-el): 49.7 ml LAV(MOD-sp4): 63.7 ml LVAs ap4: 9.9 cm2 ESV(MOD-sp4): 16.3 ml ESV(sp4-el): 15.2 ml EF(MOD-sp4): 66.8 % EF(sp4-el): 69.5 % SV(sp4-el): 34.6 ml LA A4 area: 21.5 cm2 LA dimension(2D): 4.1 cm RA A4 area: 15.7 cm2 Doppler Measurements & Calculations MV E max reji: 112.2 cm/sec Lat Peak E' Reji: 6.7 cm/sec Med Peak E' Reji: 7.0 cm/sec MV A max reji: 97.6 cm/sec E/E' lat: 16.7 E/E' med: 16.1 MV E/A: 1.1 Ao V2 max: 147.5 cm/sec LV V1 max: 104.6 cm/sec PA V2 max: 98.9 cm/sec Ao max P.7 mmHg LV V1 max P.4 mmHg Ao V2 mean: 110.1 cm/sec Ao mean P.2 mmHg Ao V2 VTI: 30.2 cm TR max reji: 347.3 cm/sec TR max P.2 mmHg Interpretation Summary Normal LV size. Left ventricular systolic function is normal. The estimated ejection fraction is 65 %. Stage 2 diastolic dysfunction. Mild (1+) tricuspid valve insufficiency. Pulmonary artery systolic pressure is 52 mmHg. Moderate pulmonary hypertension. Compared to previous study, the left ventricular systolic function is the same.. Ordering Physician: Aditya Hope Chi Referring Physician: Aditya Hope Chi Performed By: Christiane Bethea, DENTON, RVT
== END ==
PROVIDERS: Family Provider Family Medicine Geriatric Medicine; PCP Family Medicine Geriatric Medicine; Referring Provider Family Medicine Geriatric Medicine; Visit Provider Family Medicine Geriatric Medicine
DX: R06.02 Shortness of breath (principal)
CPT/HCPCS: 93306

== ENCOUNTER → 2019-07-19 | Outpatient (CLI) | payer MEDICARE, OTHER, SELFPAY ==
[2018-12-22 13:01] VITALS: BMI 36.3
== END | disposition home or self-care (01) ==
LOC: LAB.FUTURE 15:01
PROVIDERS: Family Provider Family Medicine Geriatric Medicine; PCP Family Medicine Geriatric Medicine; Visit Provider Family Medicine Geriatric Medicine
DX: N39.0 Urinary tract infection, site not specified (principal)
CPT/HCPCS: 87086; 87088; 87186

== ENCOUNTER → 2019-08-11 14:40 | Outpatient (CLI) | payer MEDICARE, OTHER, SELFPAY ==
[2018-12-22 13:01] VITALS: BMI 36.3
[2019-08-11 17:52] LABS: Thyroid Stim Hormone (TSH) 0.86 uIU/mL (0.358-3.74)
== END ==
PROVIDERS: Family Provider Family Medicine Geriatric Medicine; PCP Family Medicine Geriatric Medicine; Visit Provider Family Medicine Geriatric Medicine
DX: E03.9 Hypothyroidism, unspecified (principal)
CPT/HCPCS: 36415; 84443

== ENCOUNTER → 2019-08-16 14:12 | Outpatient (CLI) | payer MEDICARE, OTHER, SELFPAY ==
[2018-12-22 13:01] VITALS: BMI 36.3
[2019-08-16 18:07] LABS: Absolute Lymphocyte Count 1.66 X10^3/uL (0.83-4.51); Absolute Neutrophil Count 7.2 X10^3/uL (2.0-7.7); Basophil# 0.06 X10^3/uL; Basophil% 0.5 % (0-1); Eosinophils% 9.1 % (0-5); Hematocrit 41.8 % (37-47); Hemoglobin 13.3 g/dL (12.0-15.0); Lymphocyte # 1.66 X10^3/ul (4.0); Lymphocyte % 15.1 % (19-41); Mean Corp Hgb Conc 31.8 g/dL (32-36); Mean Corpuscular Hgb 31.6 pg (27.0-32.0); Mean Corpuscular Volume 99.3 fL (81-99); Mean Platelet Vol. 11.7 fl (6.2-12.0); Monocyte# 1.07 X10^3/uL; Monocyte% 9.7 % (0-10); NRBC Flagged by Analyzer 0 % (0-5); Neutrophil % 65.3 % (47-70); Platelet Count 215 K/mm3 (150-450); RBC Distribution Width CV 13.3 % (11.6-14.6); Red Blood Count 4.21 M/mm3 (4.2-5.4)
[2019-08-16 18:16] LABS: ALB/GLOB Ratio 1.1 RATIO (0.9-2.4); AST(SGOT) 18 U/L (15-37); Alanine Aminotransfer ALT/SGPT 21 U/L (13-56); Albumin, Serum 3.4 g/dL (3.2-5.0); Alkaline Phosphatase 124 U/L (45-117); Anion Gap 7 (5-15); BUN 23 mg/dL (7-18); Calcium,Total 10.1 mg/dL (8.5-10.1); Chloride 110 mmol/L (98-107); Creatinine, Serum 0.88 mg/dL (0.55-1.02); EST Glomerular Filtration Rate 65 mL/min (>60); Est Glom Filt Rate - Afr Amer 78 mL/min (>60); Glucose 99 mg/dL (74-106); Protein, Total 6.4 g/dL (6.4-8.2); Sodium Level 144 mmol/L (136-145); Thyroid Stim Hormone (TSH) 0.67 uIU/mL (0.358-3.74); Uric Acid 4.3 mg/dL (2.6-6.0); Vitamin D,25 Hydroxy 75.6 ng/mL (29.95-100.01)
== END ==
PROVIDERS: Family Provider Family Medicine Geriatric Medicine; PCP Family Medicine Geriatric Medicine; Visit Provider Family Medicine Geriatric Medicine
DX: I10 Essential (primary) hypertension (principal); M10.9 Gout, unspecified; E55.9 Vitamin D deficiency, unspecified
CPT/HCPCS: 36415; 80053; 82306; 84443; 84550; 85025

== ENCOUNTER → 2019-08-29 12:56 | Outpatient (CLI) | payer MEDICARE, OTHER, SELFPAY ==
[2018-12-22 13:01] VITALS: BMI 36.3
[2019-08-29 16:16] LABS: AST(SGOT) 16 U/L (15-37); Alanine Aminotransfer ALT/SGPT 19 U/L (13-56); Albumin, Serum 3.5 g/dL (3.2-5.0); Alkaline Phosphatase 122 U/L (45-117); Bilirubin, Direct 0.19 mg/dL (0.00-0.30); Protein, Total 6.5 g/dL (6.4-8.2)
== END ==
PROVIDERS: Family Provider Family Medicine Geriatric Medicine; PCP Family Medicine Geriatric Medicine; Referring Provider Internal Medicine Pulmonary Disease; Visit Provider Internal Medicine Pulmonary Disease
DX: R06.00 Dyspnea, unspecified (principal); I27.20 Pulmonary hypertension, unspecified; Z79.899 Other long term (current) drug therapy
CPT/HCPCS: 36415; 80076; 83880

== ENCOUNTER → 2019-10-28 11:21 | Outpatient (CLI) | payer MEDICARE, OTHER, SELFPAY ==
[2019-09-16 14:27] VITALS: BMI 39.4
[2019-10-28 12:38] LABS: Absolute Lymphocyte Count 1.36 X10^3/uL (0.83-4.51); Absolute Neutrophil Count 4.8 X10^3/uL (2.0-7.7); Basophil# 0.06 X10^3/uL; Basophil% 0.8 % (0-1); Eosinophil# 0.73 X10^3/uL; Eosinophils% 9.5 % (0-5); Hematocrit 41.8 % (37-47); Lymphocyte # 1.36 X10^3/ul (4.0); Lymphocyte % 17.7 % (19-41); Mean Corp Hgb Conc 31.1 g/dL (32-36); Mean Corpuscular Hgb 30.7 pg (27.0-32.0); Mean Corpuscular Volume 98.6 fL (81-99); Mean Platelet Vol. 11.5 fl (6.2-12.0); Monocyte# 0.73 X10^3/uL; Monocyte% 9.5 % (0-10); NRBC Flagged by Analyzer 0 % (0-5); Neutrophil # 4.76 X10^3/uL (2.7-7.7); Neutrophil % 62.1 % (47-70); Platelet Count 192 K/mm3 (150-450); RBC Distribution Width CV 13.3 % (11.6-14.6); RBC Distribution Width SD 48.7 fl (35.1-43.9); Red Blood Count 4.24 M/mm3 (4.2-5.4); White Blood Count 7.7 K/mm3 (4.4-11.0)
[2019-10-28 12:48] LABS: Anion Gap 4 (5-15); BUN 16 mg/dL (7-18); BUN/Creat Ratio 17.6 RATIO (10-20); Calcium,Total 10.3 mg/dL (8.5-10.1); Chloride 109 mmol/L (98-107); Creatinine, Serum 0.91 mg/dL (0.55-1.02); EST Glomerular Filtration Rate 63 mL/min (>60); Est Glom Filt Rate - Afr Amer 76 mL/min (>60); Glucose 107 mg/dL (74-106); Potassium 3.7 mmol/L (3.5-5.1); Sodium Level 142 mmol/L (136-145)
[2019-10-28 13:09] LABS: BNP,B-Type NATRIURETIC PEPTIDE 180.8 pg/mL (0-100)
== END ==
PROVIDERS: PCP Family Medicine Geriatric Medicine; Visit Provider Family Medicine Geriatric Medicine
DX: G93.9 Disorder of brain, unspecified (principal); R06.09 Other forms of dyspnea; N39.0 Urinary tract infection, site not specified
CPT/HCPCS: 36415; 80048; 83880; 85025; 87086; 87088

== ENCOUNTER → 2019-10-28 11:24 | Outpatient (CLI) | payer MEDICARE, OTHER, SELFPAY ==
[2019-09-16 14:27] VITALS: BMI 39.4
--- NOTE | 2019-10-28 11:29 | VDLE_ITS ---
Reason For Study: Swelling RIGHT LEFT GSV is normal. GSV is normal. CFV is compressible, spontaneous, phasic, CFV is compressible, spontaneous, phasic, competent and demonstrates normal competent, and demonstrates normal augmentation. augmentation. FV is compressible, spontaneous, phasic, FV is compressible, spontaneous, phasic, competent and demonstrates normal competent and demonstrates normal augmentation. augmentation. POP V is compressible, spontaneous, phasic, POP V is compressible, spontaneous, phasic, competent and demonstrates normal competent and demonstrates normal augmentation. augmentation. T/P Trunk is compressible. T/P Trunk is compressible. PTV is compressible. PTV is compressible. RT PerV is compressible. LT PerV is compressible. Procedure Exam performed in department. A preliminary report was called and/or faxed to [place]. Interpretation Summary Deep veins of the lower extremities are bilaterally patent and compressible segmentally. There is no evidence of deep vein thrombosis on either side. Valvular competence appears intact within the proximal deep venous systems bilaterally. The great saphenous veins appear bilaterally patent and compressible segmentally. Ordering Physician: Jack Finn Referring Physician: Aditya Hope Chi Performed By: Izabel Santamaria RVT
--- NOTE | 2019-10-28 12:45 | RAD_ITS ---
STUDY: X-RAY - ABDOMEN/PELVIS REASON FOR EXAM: Female, 84 years old. bilateral edema in arms and legs; dyspnea TECHNIQUE: AP supine and upright views of the abdomen and pelvis. COMPARISON: None. FINDINGS: Mild fibrotic changes in the lung bases. No dilated loops of small bowel. There is moderate fecal retention. There is no demonstrated free abdominal air. The visualized liver, spleen and kidneys are grossly normal in size and morphology. Calcifications of the upper abdomen are likely gallstones. Normal soft tissue structures. There are diffuse degenerative changes of the visualized lumbar spine. Mild dextroscoliosis. RAD/Abdomen Single View IMPRESSION: 1. Nonobstructive bowel gas pattern. Moderate fecal retention. 2. Cholelithiasis. Electronically Signed: Rakesh Dotson MD ([place]) at 11:25 EST , Service support ,
== END ==
PROVIDERS: PCP Family Medicine Geriatric Medicine; Referring Provider Internal Medicine Pulmonary Disease; Visit Provider Family Medicine Geriatric Medicine
DX: R14.0 Abdominal distension (gaseous) (principal); M79.89 Other specified soft tissue disorders; R06.00 Dyspnea, unspecified; G93.9 Disorder of brain, unspecified; R06.09 Other forms of dyspnea; N39.0 Urinary tract infection, site not specified
CPT/HCPCS: 36415; 74018; 80048; 83880; 85025; 87086; 87088; 93970

== ENCOUNTER → 2019-11-03 15:48 | Outpatient (CLI) | payer MEDICARE, OTHER, SELFPAY ==
[2019-09-16 14:27] VITALS: BMI 39.4
[2019-11-03 17:54] LABS: Anion Gap 5 (5-15); BUN 28 mg/dL (7-18); Calcium,Total 10.3 mg/dL (8.5-10.1); Chloride 105 mmol/L (98-107); Creatinine, Serum 1.12 mg/dL (0.55-1.02); EST Glomerular Filtration Rate 49 mL/min (>60); Est Glom Filt Rate - Afr Amer 60 mL/min (>60); Glucose 102 mg/dL (74-106); Potassium 3.7 mmol/L (3.5-5.1); Sodium Level 140 mmol/L (136-145)
== END ==
PROVIDERS: PCP Family Medicine Geriatric Medicine; Visit Provider Family Medicine Geriatric Medicine
DX: E87.6 Hypokalemia (principal)
CPT/HCPCS: 36415; 80048

== ENCOUNTER → 2019-11-21 11:05 | Outpatient (CLI) | payer MEDICARE, OTHER, SELFPAY ==
[2019-09-16 14:27] VITALS: BMI 39.4
[2019-11-21 12:27] LABS: Absolute Lymphocyte Count 1.51 X10^3/uL (0.83-4.51); Absolute Neutrophil Count 7.5 X10^3/uL (2.0-7.7); Basophil# 0.03 X10^3/uL; Basophil% 0.3 % (0-1); Eosinophil# 0.07 X10^3/uL; Eosinophils% 0.7 % (0-5); Hematocrit 42.1 % (37-47); Hemoglobin 13.6 g/dL (12.0-15.0); Lymphocyte # 1.51 X10^3/ul (4.0); Lymphocyte % 15.4 % (19-41); Mean Corp Hgb Conc 32.3 g/dL (32-36); Mean Corpuscular Hgb 31.3 pg (27.0-32.0); Mean Platelet Vol. 11.6 fl (6.2-12.0); Monocyte# 0.66 X10^3/uL; Monocyte% 6.7 % (0-10); NRBC Flagged by Analyzer 0 % (0-5); Neutrophil # 7.49 X10^3/uL (2.7-7.7); Neutrophil % 76.2 % (47-70); Platelet Count 196 K/mm3 (150-450); RBC Distribution Width CV 13.2 % (11.6-14.6); RBC Distribution Width SD 47.4 fl (35.1-43.9); Red Blood Count 4.34 M/mm3 (4.2-5.4); White Blood Count 9.8 K/mm3 (4.4-11.0)
[2019-11-21 12:36] LABS: Vitamin D,25 Hydroxy 52.3 ng/mL
[2019-11-21 12:49] LABS: ALB/GLOB Ratio 1.1 RATIO (0.9-2.4); AST(SGOT) 14 U/L (15-37); Alanine Aminotransfer ALT/SGPT 20 U/L (13-56); Albumin, Serum 3.3 g/dL (3.2-5.0); Alkaline Phosphatase 110 U/L (45-117); Anion Gap 7 (5-15); BUN 21 mg/dL (7-18); BUN/Creat Ratio 23.1 RATIO (10-20); Calcium,Total 9.5 mg/dL (8.5-10.1); Chloride 107 mmol/L (98-107); Creatinine, Serum 0.91 mg/dL (0.55-1.02); EST Glomerular Filtration Rate 63 mL/min (>60); Est Glom Filt Rate - Afr Amer 76 mL/min (>60); Globulin 3.1 g/dL (2.2-4.2); Glucose 130 mg/dL (74-106); Potassium 3.6 mmol/L (3.5-5.1); Protein, Total 6.4 g/dL (6.4-8.2); Sodium Level 140 mmol/L (136-145); Thyroid Stim Hormone (TSH) 0.42 uIU/mL (0.358-3.74); Uric Acid 5.3 mg/dL (2.6-6.0)
== END ==
PROVIDERS: PCP Family Medicine Geriatric Medicine; Visit Provider Family Medicine Geriatric Medicine
DX: E55.9 Vitamin D deficiency, unspecified (principal); I10 Essential (primary) hypertension; M10.9 Gout, unspecified
CPT/HCPCS: 36415; 80053; 82306; 84443; 84550; 85025

== ENCOUNTER → 2020-01-11 14:45 | Outpatient (CLI) | payer MEDICARE, OTHER, SELFPAY ==
[2019-09-16 14:27] VITALS: BMI 39.4
== END ==
PROVIDERS: PCP Family Medicine Geriatric Medicine; Referring Provider Family Medicine Geriatric Medicine; Visit Provider Family Medicine Geriatric Medicine
DX: R68.83 Chills (without fever) (principal)
CPT/HCPCS: 87633

== ENCOUNTER → 2020-02-16 16:42 | Outpatient (CLI) | payer MEDICARE, OTHER, SELFPAY ==
[2019-09-16 14:27] VITALS: BMI 39.4
[2020-02-16 18:03] LABS: Vitamin D,25 Hydroxy 39.9 ng/mL
[2020-02-16 18:07] LABS: Absolute Lymphocyte Count 2.05 X10^3/uL (0.83-4.51); Absolute Neutrophil Count 7.8 X10^3/uL (2.0-7.7); Basophil# 0.08 X10^3/uL; Basophil% 0.7 % (0-1); Eosinophil# 0.82 X10^3/uL; Eosinophils% 6.9 % (0-5); Hematocrit 42.5 % (37-47); Hemoglobin 13.6 g/dL (12.0-15.0); Lymphocyte # 2.05 X10^3/ul (4.0); Lymphocyte % 17.3 % (19-41); Mean Corpuscular Hgb 32.4 pg (27.0-32.0); Mean Corpuscular Volume 101.2 fL (81-99); Mean Platelet Vol. 11.7 fl (6.2-12.0); Monocyte# 1.01 X10^3/uL; Monocyte% 8.5 % (0-10); NRBC Flagged by Analyzer 0 % (0-5); Neutrophil % 66.1 % (47-70); Platelet Count 266 K/mm3 (150-450); RBC Distribution Width CV 13.1 % (11.6-14.6); RBC Distribution Width SD 48.9 fl (35.1-43.9); White Blood Count 11.8 K/mm3 (4.4-11.0)
[2020-02-16 19:09] LABS: ALB/GLOB Ratio 1.1 RATIO (0.9-2.4); AST(SGOT) 12 U/L (15-37); Alanine Aminotransfer ALT/SGPT 18 U/L (13-56); Albumin, Serum 3.4 g/dL (3.2-5.0); Alkaline Phosphatase 106 U/L (45-117); Anion Gap 8 (5-15); BUN 20 mg/dL (7-18); BUN/Creat Ratio 21.9 RATIO (10-20); Calcium,Total 10.4 mg/dL (8.5-10.1); Chloride 104 mmol/L (98-107); Creatinine, Serum 0.92 mg/dL (0.55-1.02); EST Glomerular Filtration Rate 62 mL/min (>60); Est Glom Filt Rate - Afr Amer 75 mL/min (>60); Globulin 3.2 g/dL (2.2-4.2); Glucose 115 mg/dL (74-106); Potassium 3.6 mmol/L (3.5-5.1); Protein, Total 6.6 g/dL (6.4-8.2); Sodium Level 139 mmol/L (136-145); Thyroid Stim Hormone (TSH) 0.74 uIU/mL (0.358-3.74); Uric Acid 6.4 mg/dL (2.6-6.0)
== END ==
PROVIDERS: PCP Family Medicine Geriatric Medicine; Visit Provider Family Medicine Geriatric Medicine
DX: E55.9 Vitamin D deficiency, unspecified (principal); I10 Essential (primary) hypertension; M10.9 Gout, unspecified
CPT/HCPCS: 36415; 80053; 82306; 84443; 84550; 85025

== ENCOUNTER → 2020-02-23 13:35 | Outpatient (CLI) | payer MEDICARE, OTHER, SELFPAY ==
[2019-09-16 14:27] VITALS: BMI 39.4
[2020-02-23 14:20] LABS: Anion Gap 9 (5-15); BUN 20 mg/dL (7-18); BUN/Creat Ratio 22.2 RATIO (10-20); Calcium,Total 10.3 mg/dL (8.5-10.1); Chloride 104 mmol/L (98-107); EST Glomerular Filtration Rate 63 mL/min (>60); Est Glom Filt Rate - Afr Amer 77 mL/min (>60); Glucose 114 mg/dL (74-106); Potassium 3.4 mmol/L (3.5-5.1); Sodium Level 141 mmol/L (136-145)
== END ==
PROVIDERS: PCP Family Medicine Geriatric Medicine; Visit Provider Family Medicine Geriatric Medicine
DX: I10 Essential (primary) hypertension (principal)
CPT/HCPCS: 36415; 80048

== ENCOUNTER → 2020-02-29 15:13 | Outpatient (CLI) | payer MEDICARE, OTHER, SELFPAY ==
[2019-09-16 14:27] VITALS: BMI 39.4
[2020-02-29 16:37] LABS: Anion Gap 8 (5-15); BUN 27 mg/dL (7-18); BUN/Creat Ratio 27.2 RATIO (10-20); Calcium,Total 10.3 mg/dL (8.5-10.1); Chloride 100 mmol/L (98-107); Creatinine, Serum 0.99 mg/dL (0.55-1.02); EST Glomerular Filtration Rate 57 mL/min (>60); Est Glom Filt Rate - Afr Amer 69 mL/min (>60); Glucose 111 mg/dL (74-106); Potassium 3.2 mmol/L (3.5-5.1); Sodium Level 140 mmol/L (136-145)
== END ==
PROVIDERS: PCP Family Medicine Geriatric Medicine; Visit Provider Family Medicine Geriatric Medicine
DX: N18.3 Chronic kidney disease, stage 3 (moderate) (principal)
CPT/HCPCS: 36415; 80048

== ENCOUNTER → 2020-03-07 11:48 | Outpatient (CLI) | payer MEDICARE, OTHER, SELFPAY ==
[2019-09-16 14:27] VITALS: BMI 39.4
[2020-03-07 12:39] LABS: AST(SGOT) 17 U/L (15-37); Alanine Aminotransfer ALT/SGPT 21 U/L (13-56); Albumin, Serum 3.6 g/dL (3.2-5.0); Alkaline Phosphatase 123 U/L (45-117); Anion Gap 12 (5-15); BUN 52 mg/dL (7-18); BUN/Creat Ratio 32.5 RATIO (10-20); Calcium,Total 10.7 mg/dL (8.5-10.1); Chloride 92 mmol/L (98-107); EST Glomerular Filtration Rate 33 mL/min (>60); Est Glom Filt Rate - Afr Amer 39 mL/min (>60); Globulin 3.7 g/dL (2.2-4.2); Glucose 138 mg/dL (74-106); Potassium 3.1 mmol/L (3.5-5.1); Protein, Total 7.3 g/dL (6.4-8.2); Sodium Level 134 mmol/L (136-145)
[2020-03-07 12:44] LABS: Absolute Lymphocyte Count 2.15 X10^3/uL (0.83-4.51); Absolute Neutrophil Count 9.1 X10^3/uL (2.0-7.7); Basophil# 0.07 X10^3/uL; Basophil% 0.5 % (0-1); Eosinophil# 0.51 X10^3/uL; Eosinophils% 3.9 % (0-5); Hematocrit 45.9 % (37-47); Hemoglobin 15.4 g/dL (12.0-15.0); Lymphocyte # 2.15 X10^3/ul (4.0); Lymphocyte % 16.4 % (19-41); Mean Corp Hgb Conc 33.6 g/dL (32-36); Mean Corpuscular Hgb 32.6 pg (27.0-32.0); Mean Platelet Vol. 11.8 fl (6.2-12.0); Monocyte# 1.24 X10^3/uL; Monocyte% 9.4 % (0-10); NRBC Flagged by Analyzer 0 % (0-5); Neutrophil % 69.3 % (47-70); Platelet Count 248 K/mm3 (150-450); RBC Distribution Width CV 12.8 % (11.6-14.6); RBC Distribution Width SD 45.3 fl (35.1-43.9); Red Blood Count 4.73 M/mm3 (4.2-5.4); White Blood Count 13.1 K/mm3 (4.4-11.0)
== END ==
PROVIDERS: PCP Family Medicine Geriatric Medicine; Visit Provider Family Medicine Geriatric Medicine
DX: N18.3 Chronic kidney disease, stage 3 (moderate) (principal)
CPT/HCPCS: 36415; 80053; 85025

== ENCOUNTER → 2020-03-08 14:55 | Outpatient (CLI) | payer MEDICARE, OTHER, SELFPAY ==
[2019-09-16 14:27] VITALS: BMI 39.4
[2020-03-08 17:56] LABS: Anion Gap 7 (5-15); BUN 40 mg/dL (7-18); BUN/Creat Ratio 35.4 RATIO (10-20); Calcium,Total 10.6 mg/dL (8.5-10.1); Chloride 98 mmol/L (98-107); Creatinine, Serum 1.13 mg/dL (0.55-1.02); EST Glomerular Filtration Rate 49 mL/min (>60); Est Glom Filt Rate - Afr Amer 59 mL/min (>60); Glucose 130 mg/dL (74-106); Sodium Level 137 mmol/L (136-145)
== END ==
PROVIDERS: PCP Family Medicine Geriatric Medicine; Visit Provider Family Medicine Geriatric Medicine
DX: N18.3 Chronic kidney disease, stage 3 (moderate) (principal)
CPT/HCPCS: 36415; 80048

== ENCOUNTER → 2020-03-16 10:09 | Outpatient (CLI) | payer MEDICARE, OTHER, SELFPAY ==
[2019-09-16 14:27] VITALS: BMI 39.4
[2020-03-16 12:44] LABS: Anion Gap 7 (5-15); BUN 24 mg/dL (7-18); BUN/Creat Ratio 28.2 RATIO (10-20); Calcium,Total 9.7 mg/dL (8.5-10.1); Chloride 108 mmol/L (98-107); Creatinine, Serum 0.85 mg/dL (0.55-1.02); EST Glomerular Filtration Rate 67 mL/min (>60); Est Glom Filt Rate - Afr Amer 82 mL/min (>60); Glucose 117 mg/dL (74-106); Sodium Level 141 mmol/L (136-145)
== END ==
PROVIDERS: PCP Family Medicine Geriatric Medicine; Visit Provider Family Medicine Geriatric Medicine
DX: N18.3 Chronic kidney disease, stage 3 (moderate) (principal)
CPT/HCPCS: 36415; 80048

== ENCOUNTER → 2020-05-17 11:07 | Outpatient (CLI) | payer MEDICARE, OTHER, SELFPAY ==
[2019-09-16 14:27] VITALS: BMI 39.4
[2020-05-17 12:16] LABS: Absolute Lymphocyte Count 1.76 X10^3/uL (0.83-4.51); Absolute Neutrophil Count 9.4 X10^3/uL (2.0-7.7); Basophil# 0.03 X10^3/uL; Basophil% 0.2 % (0-1); Eosinophil# 0.13 X10^3/uL; Eosinophils% 1.1 % (0-5); Hematocrit 40.6 % (37-47); Hemoglobin 12.8 g/dL (12.0-15.0); Lymphocyte # 1.76 X10^3/ul (4.0); Lymphocyte % 14.3 % (19-41); Mean Corp Hgb Conc 31.5 g/dL (32-36); Mean Corpuscular Hgb 31.9 pg (27.0-32.0); Mean Corpuscular Volume 101.2 fL (81-99); Monocyte# 0.95 X10^3/uL; Monocyte% 7.7 % (0-10); NRBC Flagged by Analyzer 0 % (0-5); Neutrophil # 9.35 X10^3/uL (2.7-7.7); Neutrophil % 76.1 % (47-70); Platelet Count 201 K/mm3 (150-450); RBC Distribution Width CV 13.9 % (11.6-14.6); RBC Distribution Width SD 51.9 fl (35.1-43.9); Red Blood Count 4.01 M/mm3 (4.2-5.4); White Blood Count 12.3 K/mm3 (4.4-11.0)
[2020-05-17 12:37] LABS: ALB/GLOB Ratio 1.5 RATIO (0.9-2.4); AST(SGOT) 9 U/L (15-37); Alanine Aminotransfer ALT/SGPT 18 U/L (13-56); Albumin, Serum 3.4 g/dL (3.2-5.0); Alkaline Phosphatase 108 U/L (45-117); Anion Gap 7 (5-15); BUN 26 mg/dL (7-18); Calcium,Total 9.7 mg/dL (8.5-10.1); Chloride 107 mmol/L (98-107); Creatinine, Serum 0.84 mg/dL (0.55-1.02); EST Glomerular Filtration Rate 69 mL/min (>60); Est Glom Filt Rate - Afr Amer 83 mL/min (>60); Globulin 2.3 g/dL (2.2-4.2); Glucose 121 mg/dL (74-106); Potassium 4.2 mmol/L (3.5-5.1); Protein, Total 5.7 g/dL (6.4-8.2); Sodium Level 141 mmol/L (136-145); Thyroid Stim Hormone (TSH) 1.01 uIU/mL (0.358-3.74); Uric Acid 5.4 mg/dL (2.6-6.0)
[2020-05-17 12:56] LABS: Vitamin D,25 Hydroxy 48.2 ng/mL
== END ==
PROVIDERS: PCP Family Medicine Geriatric Medicine; Visit Provider Family Medicine Geriatric Medicine
DX: I10 Essential (primary) hypertension (principal); E55.9 Vitamin D deficiency, unspecified; M10.9 Gout, unspecified
CPT/HCPCS: 36415; 80053; 82306; 84443; 84550; 85025

== ENCOUNTER 2020-05-30 12:30 | Outpatient (RCR) | payer MEDICARE, OTHER, SELFPAY ==
[2019-09-16 14:27] VITALS: BMI 39.4
[2020-05-30 13:25] LABS: Hemoglobin 13.8 g/dL (12.0-15.0)
[2020-05-30 13:50] LABS: Amphetamine Urine VISTA NEGATIVE (<1000 ng/mL); Barbiturate Urine VISTA NEGATIVE (< 200 ng/mL); Benzodiazepine Urine VISTA NEGATIVE (< 200 ng/mL); Cocaine Urine VISTA NEGATIVE (< 300 ng/mL); Ecstacy Urine VISTA NEGATIVE (< 500 ng/mL); Methadone Urine VISTA NEGATIVE (< 300 ng/mL); PCP Urine VISTA NEGATIVE (< 25 ng/mL); THC Urine VISTA NEGATIVE (< 50 ng/mL); Vista UDS pH Range 6
[2020-05-30 13:55] LABS: AST(SGOT) 14 U/L (15-37); Alanine Aminotransfer ALT/SGPT 21 U/L (13-56); Albumin, Serum 3.5 g/dL (3.2-5.0); Alkaline Phosphatase 143 U/L (45-117); Bilirubin, Direct 0.19 mg/dL (0.00-0.30); Globulin 3.4 g/dL (2.2-4.2); Protein, Total 6.9 g/dL (6.4-8.2)
[2020-05-30 13:59] LABS: BNP,B-Type NATRIURETIC PEPTIDE 134.2 pg/mL (0-100)
== END 2020-05-30 18:00 | disposition home or self-care (01) ==
LOC: LAB 12:30
PROVIDERS: Anesthesiology Pain Medicine; PCP Family Medicine Geriatric Medicine; Referring Provider Internal Medicine Pulmonary Disease; Visit Provider Internal Medicine Pulmonary Disease
DX: I27.20 Pulmonary hypertension, unspecified (principal); G47.33 Obstructive sleep apnea (adult) (pediatric); R06.2 Wheezing; F11.20 Opioid dependence, uncomplicated
CPT/HCPCS: 36415; 80076; 80307; 83880; 85018

== ENCOUNTER 2020-06-20 11:00 | Outpatient (RCR) | payer MEDICARE, OTHER, SELFPAY ==
[2019-09-16 14:27] VITALS: BMI 39.4
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
--- NOTE | 2020-05-25 10:45 | HP.OTEVAL_ITS ---
Patient's Visit Information PAULO MILLER is a 84 year old F, referred to Occupational Therapy by Dr. Ileana Barahona MD, with a diagnosis of lymphedema. Date of Evaluation: 05/25/20 Occupational Therapist: Iveth Redmond, OTR/L, CHT - Subjective Pt states she has had swelling in her LE for years- states she has had some weight gain and noticed in Oct. increase swelling in her LE- pt states drJaspal feel it is related to CHF. pt states. pt states she is on a water pill 2x a day but has not noticed a change in her swelling- states at night she notices her swelling is down. and in AM when she gets. pt states she has had compression socks in the past but they have not fit well. pt states she has spent over 600 dollars on compression garments and does not want to get more. pt would like to know what she can do to help with her leg swelling. - Pain BLE 6 Pain Intensity Range: 3, 6 - Lymphedema (Circumferential Measure) Mid-foot: right 24cm left 24.5cmm Ankle: right 40cm left 36cm Lower calf: right 47cm left 45cm Largest calf: right 55cm left 53cm Below knee: right 55cm left 51cm - Rehabilitation General Assessment: pt demo with swelling in BLE and would benefit from skilled OT services to ed. on LE lymphedema and use of compression garments. But after discussions with pt on treatment options for LE edema. pt currently at this time will continue with using alexei waps per her choice to mtg her lymphedema. Due to pt reciving compression socks in the past that have not fit pt is reluctent to spend more money on them or compression alternatives as the velcro closures. pt agree to using her alexei wrap during the day. Therapist also ed. pt on skin care and precautions pt demo understanding.THerapist ed. pt on lymphedema ex to perform at least 4x a day and therapist instructed pt to get up every waking hour to help improve her circulation and strength. pt will see PT for back pain. Rehabilitation Potential: Questionable - Anticipated Interventions Education re Life-long lymphedema Management, Education re Self-Bandaging Techniques, Education re Skin Care and Precautions, Education re Correct Donning Tech,Care&Wearing Sched Comp Garments, Home Program - Visit Plan General Plan: After discussion with pt of tx options or use of compression socks or compression alternatives- pt declined information- pt agree to use alexei waps on LE. pt has been wrapping on and off for years and communicates understanding of wraps. TEXT: Thank you for the opportunity to evaluate your patient. For Medicare and Medicare HMO plans, please review the plan of care and approve it. It will need to be FAXED BACK to us at [phone] for Medicare purposes. Please let me know if there are questions or concerns regarding this plan of care. Physician Sign ature: Date:
--- NOTE | 2020-07-23 18:19 | HP.PT.NRP ---
PAULO MILLER was seen in my office for initial evaluation on 05/25/20. The following Plan of Care was established for this patient: Initial Frequency: 2-3x /Week Initial Duration: 4-6 Weeks Patient/Client Instruction: Educate patient on: Condition, Plan of Care, Risk Factors, Benefits of Fitness Program For the Purpose of:: To improve self management Therapeutic Exercise to Include: Strength training, Body mechanics, Postural training, Gait and locomotor training, Neuromotor development, Dynamic Lumbar Stabilization For the Purpose of:: To decrease pain, To increase ROM, To improve muscle performance and motor function, To increase tolerance to activity/condition/position, To improve performance and independence with ADL's, To improve ability of physical actions for home/community/work/leisure, To improve gait and locomotor functions Thermo therapy (hot pack): Yes Ultrasound (thermal/non thermal): Yes For the Purpose of:: To decrease pain, To decrease swelling/inflammation, To improve nutrient delivery to tissue This patient was last seen in our office 06/20/20. Pertinent comments regarding their Physical therapy will appear below: This patient has not returned to Physical Therapy and is appropriate to return to MD for further follow-up as needed. At this point I will be discontinuing this patient from physical therapy. I would be happy to see this patient again in the future if found appropriate by the physician. Thank you! Rafaela Ruvalcaba PT, Cert MDT
== END 2020-06-20 19:00 | disposition home or self-care (01) ==
LOC: PT 11:00
PROVIDERS: PCP Family Medicine Geriatric Medicine; Referring Provider Anesthesiology Pain Medicine; Visit Provider Anesthesiology Pain Medicine
DX: M51.17 Intervertebral disc disorders with radiculopathy, lumbosacral region (principal); M48.061 Spinal stenosis, lumbar region without neurogenic claudication; R60.9 Edema, unspecified; M51.16 Intervertebral disc disorders with radiculopathy, lumbar region
CPT/HCPCS: 97035; 97110; 97112; 97162; 97166; 97530

== ENCOUNTER → 2020-06-27 05:39 | Outpatient (CLI) | payer MEDICARE, OTHER, SELFPAY ==
[2020-06-20 14:44] VITALS: BMI 41.5
--- NOTE | 2020-06-27 17:28 | STRESSREP ---
Stress Test Report Pharmacologic myocardial perfusion stress test. 84-year-old lady with a history of chest pain. Stress protocol: Resting EKG demonstrates normal sinus rhythm with a rate of 93 bpm normal intervals are noted resting blood pressure is 158/90 mmHg. 0.4 mg of regadenoson was infused per usual protocol followed by Intravenous saline flush injection continuous EKG monitoring was performed. Patient maintained sinus rhythm throughout the recording with occasional premature ventricular complex noted the maximum heart rate attained was 102 bpm which was 75% of maximum predicted heart rate. The maximum workload was 1 metabolic equivalent. The resting blood pressure 158/90 with a final blood pressure of the same. Myocardial perfusion protocol. 15.0 mCi of technetium 99m sestamibi was injected at rest. 0.4 mg of regadenoson was infused per usual protocol. At peak infusion 45.0 mCi of technetium 99m sestamibi was injected stress images were obtained stress and rest images were reconstructed and compared in the short axis vertical long horizontal long axis. Gated images were also obtained per Perfusion SPECT analysis: Review of the stress images demonstrate normal uptake of tracer noted in the septum anterior wall and lateral wall. The inferior wall demonstrates a medium sized perfusion defect on the stress images which improves on the resting images suggesting a moderate amount of inferior ischemia and a medium sized zone. No previous infarct was noted. Gated SPECT analysis: The gated ejection fraction is 75%. Conclusion: Abnormal pharmacologic myocardial perfusion stress test with evidence of mid inferior ischemia. Preserved ejection fraction.
== END ==
PROVIDERS: PCP Family Medicine Geriatric Medicine; Referring Provider Nurse Practitioner Family; Visit Provider Nurse Practitioner Family
DX: R07.9 Chest pain, unspecified (principal); Z95.5 Presence of coronary angioplasty implant and graft
CPT/HCPCS: 78452; 93017; A9500; A4216; J2785

== ENCOUNTER → 2020-07-13 13:30 | Outpatient (CLI) | payer MEDICARE, OTHER, SELFPAY ==
[2020-06-20 14:44] VITALS: BMI 41.5
--- NOTE | 2020-07-13 13:50 | RAD_ITS ---
STUDY: X-RAY CHEST REASON FOR EXAM: Female, 84 years old. PREOP -- CATHETERIZATION TECHNIQUE: PA and lateral views of the chest. COMPARISON: 06/16/2019 FINDINGS: There is hyperinflation of the lungs consistent with chronic obstructive lung disease (COPD). There is no demonstrated pleural abnormality. Normal size heart. Normal mediastinum and dean. Normal visualized pulmonary arteries. Normal visualized aortic arch and descending thoracic aorta. Normal visualized thoracic spine. Normal visualized ribs, clavicles, and shoulders. There is no demonstrated abnormality of the visualized soft tissue structures of the upper abdomen. RAD/Chest PA and Lateral IMPRESSION: Emphysema without pneumonia or atelectasis. Electronically Signed: Emmanuel Raymond MD at 14:55 EDT Tel , Service support ,
== END ==
PROVIDERS: PCP Family Medicine Geriatric Medicine; Referring Provider Nurse Practitioner Family; Visit Provider Nurse Practitioner Family
DX: Z01.810 Encounter for preprocedural cardiovascular examination (principal); Z95.5 Presence of coronary angioplasty implant and graft; I10 Essential (primary) hypertension; E78.5 Hyperlipidemia, unspecified; I25.10 Atherosclerotic heart disease of native coronary artery without angina pectoris
CPT/HCPCS: 71046

== ENCOUNTER 2020-07-20 06:53 | Day surgery (SDC) | payer MEDICARE, OTHER, SELFPAY ==
[2020-06-20 14:44] VITALS: BMI 41.5
[2020-07-13 14:09] LABS: Absolute Lymphocyte Count 1.42 X10^3/uL (0.83-4.51); Absolute Neutrophil Count 8.6 X10^3/uL (2.0-7.7); Basophil# 0.06 X10^3/uL; Basophil% 0.5 % (0-1); Eosinophil# 0.52 X10^3/uL; Eosinophils% 4.5 % (0-5); Hematocrit 41.3 % (37-47); Hemoglobin 13.3 g/dL (12.0-15.0); Lymphocyte # 1.42 X10^3/ul (4.0); Lymphocyte % 12.3 % (19-41); Mean Corp Hgb Conc 32.2 g/dL (32-36); Mean Corpuscular Hgb 31.8 pg (27.0-32.0); Mean Corpuscular Volume 98.8 fL (81-99); Mean Platelet Vol. 10.7 fl (6.2-12.0); Monocyte# 0.88 X10^3/uL; Monocyte% 7.6 % (0-10); NRBC Flagged by Analyzer 0 % (0-5); Neutrophil # 8.58 X10^3/uL (2.7-7.7); Neutrophil % 74.4 % (47-70); Platelet Count 260 K/mm3 (150-450); RBC Distribution Width CV 13.4 % (11.6-14.6); RBC Distribution Width SD 48.9 fl (35.1-43.9); Red Blood Count 4.18 M/mm3 (4.2-5.4); White Blood Count 11.5 K/mm3 (4.4-11.0)
[2020-07-13 14:24] LABS: International Normalized Ratio 2.5; Prothrombin Time (Protime)PT. 26.6 SECONDS (11.7-14.9)
[2020-07-13 14:25] LABS: Partial Thromboplast Time 38.6 Seconds (24.1-36.2)
[2020-07-13 14:29] LABS: Anion Gap 7 (5-15); BUN 19 mg/dL (7-18); BUN/Creat Ratio 18.6 RATIO (10-20); Chloride 108 mmol/L (98-107); Creatinine, Serum 1.02 mg/dL (0.55-1.02); EST Glomerular Filtration Rate 55 mL/min (>60); Est Glom Filt Rate - Afr Amer 66 mL/min (>60); Glucose 130 mg/dL (74-106); Potassium 3.8 mmol/L (3.5-5.1); Sodium Level 141 mmol/L (136-145)
[2020-07-19 09:22] VITALS: BMI 41.5
--- NOTE | 2020-07-20 09:00 | HP_ITS ---
HPI HPI History of Present Illness Details: Details: PAULO MILLER, is a 84 F who presents to the office today for a follow-up visit. She has a history of coronary artery disease status post angioplasty and stenting of a proximal 80% stenosis in the left anterior descending artery and residual disease noted in the right coronary artery which was severe. Medical therapy was recommended for the above. She also has a history of previous pulmonary emboli and has a mildly dilated right ventricle with moderate pulmonary hypertension. Her pulmonary artery systolic pressures have been in the range of 50-55 mmHg with a preserved ejection fraction. She states last week noted chest pain and took two NTG with relieve. She woke up this morning with chest pain and took NTG with relieve. This is worse with activity. This is in the center of her chest and radiates to her back. She denies arm, jaw, or neck pain. She denies associated nausea of diaphoresis. She states ongoing SOB with activity. This has been ongoing over the last few weeks. This improves with rest. She states ongoing edema that appears to be worsening. She denies arm, jaw, or neck discomfort. Her exercise tolerance is stable. She denies symptoms of palpitations, lightheadedness, dizziness, near syncope, or syncopal episodes. She denies claudication issues. She denies orthopnea, PND, blood in urine, blood in stool, or myalgia. Intake Vital Signs 06/20/20 Height 5 ft 4 in 06/20/20 Weight: 242 lb 06/20/20 BP 129/81 H 06/20/20 Blood Pressure Location Lt brachial 06/20/20 Position Sitting 06/20/20 Respiration 20 H 06/20/20 Pulse 96 06/20/20 Pulse Source Monitor 06/20/20 Pulse Oximetry (%) 93 Intake Visit Reasons: CP, weight gain, +4 edema Headwaiter/Headwaitress Required: No Accompanied by: none Is patient in pain?: No Allergies ibuprofen Allergy (Verified 06/20/20 14:44) Unknown Medications Budesonide/Formoterol 160/4.5 [Symbicort 160/4.5 Mcg Inhaler (SP)] 2 puff INHALATION BID 11/24/13 [History Confirmed 06/20/20] Ascorbic Acid [Vitamin C] 500 mg PO BID 05/12/17 [History Confirmed 06/20/20] Tiotropium Doyle [Spiriva 18 MCG] 1 puff INHALATION DAILY 05/12/17 [History Confirmed 06/20/20] ergocalciferol (vitamin D2) 1,250 mcg (50,000 unit) capsule 50,000 unit PO FR 12/10/17 [History Confirmed 06/20/20] nitroglycerin 0.4 mg sublingual tablet 0.4 mg SUBLINGUAL Q5M PRN 12/10/17 [History Confirmed 06/20/20] acetaminophen 500 mg capsule 500 mg PO Q6H PRN 12/28/17 [History Confirmed 06/20/20] Allopurinol [Zyloprim] 100 mg PO DAILYCM 09/13/18 [History Confirmed 06/20/20] Cyanocobalamin (Vitamin B-12) [Vitamin B-12] 1,000 mcg PO DAILY 09/13/18 [History Confirmed 06/20/20] Hydrocodone/Acetaminophen [Hydrocodone-Acetamin 5-325 mg] 1 tab PO BID 09/13/18 [History Confirmed 06/20/20] Methenamine Hippurate 1 gm PO BID 09/13/18 [History Confirmed 06/20/20] Metoprolol Tartrate [Lopressor (beta billy)] 12.5 mg PO BID 09/13/18 [History Confirmed 06/20/20] Warfarin Sodium 2.5 mg PO DAILY 09/13/18 [History Confirmed 06/20/20] levothyroxine 88 mcg capsule 88 mcg PO DAILY 09/16/19 [History Confirmed 06/20/20] furosemide 40 mg tablet 80 mg PO BID tab 06/20/20 [History Confirmed 06/20/20] icosapent ethyl 1 gram capsule 2 g PO BID 06/20/20 [History Confirmed 06/20/20] isosorbide mononitrate 30 mg tablet,extended release 24 hr 60 mg PO DAILY #60 tab 06/20/20 [Rx Confirmed 06/20/20] potassium chloride 20 mEq tablet,extended release 40 meq PO TID tab 06/20/20 [History Confirmed 06/20/20] [facility] Social History (Updated 06/21/20 @ 06:59 by Bernard Bethea GASTROENTEROLOGY PHYSICIAN, GASTROENTEROLOGY PHYSICIAN-C) Smoking Status: Never smoker alcohol intake: never substance use type: does not use diet: low salt caffeine: No what type of physical activity do you participate in: none seatbelt use: always do you feel safe at home: Yes ROS Const Const: Positive for fatigue; negative for weakness, body ache, fever(s) or chills ENT ENT: Negative for dizziness Cardio Chest Pain: Yes Palpitations: No Edema: Bilateral Muscle aches with walking: None Resp Respiratory: Positive for SOB with activity; negative for SOB at rest, SOB orthopnea\SOB lying down or paroxysmal nocturnal dyspnea GI GI: Negative nausea, vomiting blood/hematemesis, bright, red blood in stools or black,tarry stools : Negative for hematuria or frequent nighttime urination/ nocturia Musc Musc: Negative for muscle aches/ myalgia Skin Skin: Negative non-healing lesions or rash Neuro Neuro: Negative for dizziness, lightheadedness, near syncope, syncope, orthostatic symptoms or weakness Endo Endo: Positive for fatigue Allergy Allergy/Immunology: Negative for rash Cardiology Exam Const Appearance: cooperative, healthy appearing, comfortable and no acute distress Nutritional Appearance: well nourished and obese Orientation: alert, awake and oriented x3 Head Head: normal to inspection Ears: hearing grossly normal bilaterally Nose: external nose normal Face and Sinus: face symmetric Mouth: oral mucosae normal Eyes General: appearance normal, both eyes and all related structures Eyelids: eyelids normal EOM: EOM intact bilaterally Neck Neck: normal visual inspection and no JVD Carotids: normal carotid upstroke Chest Chest inspection: normal inspection of the chest, symmetric chest movement and normal respiratory effort; negative cough Auscultation: Bilateral: Diminished Lung Sounds Cardio Palpation: normal PMI Rate: regular rate Rhythm: regular rhythm Heart sounds: S1 normal and S2 normal; negative rub, gallop or murmur GI GI: normal to inspection and obese Neuro General: alert, awake, oriented x3 and CN's II-XI intact bilaterally Skin Skin: no rashes or lesions noted Extremities Pulses: Normal: Right Posterior Tibial Pulse, Left Posterior Tibial Pulse, Right Radial Pulse, Left Radial Pulse Lower Extremity Edema: None: Bilateral Her lower extremities noted to be large, but no appreciable pitting edema is noted. Psych Psychological: normal affect Assessment & Plan 1. Atherosclerosis of [place] coronary artery of [place] heart without angina pectoris I25.10 Plan Patient's last heart catheterization in November 2013 showed residual mild disease of ramus intermedius, mild to moderate disease of LCx, and mild proximal disease, moderate mid segment disease, and severe distal posterior descending artery stenosis of the RCA. Her most recent stress test in 2014 was negative for ischemia. Her most recent echocardiogram June 2019 showed ejection fraction of 65% and stage II diastolic dysfunction. Patient's EKG today in office shows normal sinus rhythm at a rate of 98 bpm, QTC of 406, and a QRS of 98. There are no acute ST or T wave changes. She describes symptoms concerning for progressive coronary artery disease. She was asked to increase her isosorbide to 60 mg p.o. daily and undergo a stress test to evaluate further. Based on results, further recommendation will be made. Patient was informed in regards to abnormal stress test may require further consideration of a heart catheterization. She was asked to contemplate risks and benefits of proceeding with such procedure if indicated in the future. At this time, we will await stress test results for further recommendation. She was asked to contact her office with an update in regards to increasing isosorbide and symptoms. Of note, patient has discontinued her aspirin therapy for unknown reasons. Given her history of coronary artery disease, this will need to be reconsidered based on stress test results. 2. History of coronary artery stent placement Z95.5 STEFANIA to prox LAD w/ 3.0 x 16 mm Promus Premier Stent November 2013 Plan She will proceed with treatment plan as outlined above. Orders Orders: Nuclear Stress Test - Chemical 06/20/20 3. Paroxysmal atrial fibrillation I48.0 Plan Her EKG today in office shows a sinus rhythm. Her heart rate is well controlled. She will continue low-dose beta-billy, metoprolol tartrate 12.5 mg p.o. twice daily, for rate control and warfarin for CVA protection. Orders Orders: 12 Lead EKG performed by [facility] 06/20/20 4. Thoracic aortic aneurysm I71.2 Plan Her last chest CTA in 2017 showed no evidence of dissection or perforation or rupture. This can be considered to be reevaluated in the future as a potential source of her symptoms if her stress test is considered to be negative. At this time, her heart rate and blood pressure are well controlled. Hopefully, by increasing isosorbide this helps assist with blood pressure control. 5. Other pulmonary embolism without acute cor pulmonale, unspecified chronicity I26.99 Plan She will continue warfarin therapy. This could be considered a source of patient's symptoms, though her symptoms appear to have been gradual versus suddenly. 6. Essential (primary) hypertension I10 Plan Patient's blood pressure is well-controlled. We will continue to monitor. We will not make any medication regimen changes. 7. Pure hypercholesterolemia E78.00 Plan She will continue current medical therapy which includes of a CPAP. She will continue risk factor and lifestyle modification. 8. nursing home current use of anticoagulant Z79.01 Plan She will continue warfarin therapy. Plan Detail Other Medications New: isosorbide mononitrate ER 60 mg (2 x 30 mg) PO DAILY 60 tabs 1RF heart Additional Comments She will return to office in 1 month to evaluate overall progress and patient results of stress test further recommendation. Thank you for allowing us to participate in the patients plan of care, if you have any questions please do not hesitate to call. This note was generated using a voice recognition system and there may be incorrect words, spelling or punctuation that were not noted when reviewing the office note prior to saving. Goals Decrease pain and radiculopathy Improve gait Barriers DDD Follow Up 1 Month (GASTROENTEROLOGY PHYSICIAN/PA) Coding Level of Care Code Off vis,est,level 4 Diagnoses Atherosclerosis of [place] coronary artery of [place] heart without angina pectoris I25.10 ??[place] vs. 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 Negative for pulmonary embolism 2. 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 Possibly penetrating. No evidence of dissection, perforation or rupture. 3. Lungs are clear Echocardiogram from 06/27/2019: Interpretation Summary Normal LV size. Left ventricular systolic function is normal. The estimated ejection fraction is 65 %. Stage 2 diastolic dysfunction. Mild (1+) tricuspid valve insufficiency. Pulmonary artery systolic pressure is 52 mmHg. Moderate pulmonary hypertension. Compared to previous study, the left ventricular systolic function is the same.. Stress test in 2014 demonstrated: Pharmacologic myocardial perfusion stress test with no obvious ischemia noted, though there is inferior significant GI diaphragmatic attenuation noted. Preserved ejection fraction. Heart catheterization from 11/25/2013: Assessment: My assessment of this patient: 1. Normal left main coronary artery. 2. Left anterior descending artery with high-grade proximal 80% stenosis. 3. Ramus intermedius with mild disease. 4. Left circumflex artery with mild to moderate disease. 5. Dominant right coronary artery with mild proximal disease, moderate mid segment disease, and severe distal posterior descending artery stenosis. 6. Preserved ejection fraction. 7. Mild to moderate pulmonary hypertension. 8. Essential hypertension. Diagnostics Electrocardiogram 06/20/20 Venous Doppler Study 10/28/19
--- NOTE | 2020-07-20 09:34 | CL.D_ITS ---
Patient Name: PAULO MILLER Study Date: 07/20/2020 Performing: Sonny Person MD Ht: 64.17 inches 163 cm : 1935 Wt: 242.51 lbs 110 kg Age: 84 Gender: female BSA: 2.13 PROCEDURE(S) PERFORMED ND70-ICY/COR/LV CLINICAL PROFILE AND INDICATIONS Indications: Worsening Angina Heart Failure: None Stress/Imaging Date: 07/05/2020Stress Test with SPECT MPI: Positive Intermediate Risk CAD Presentations: Stable angina. CONCLUSIONS Previously placed stent in the left anterior descending artery which is patent and a subtotally occlu ded mid to distal right coronary artery with collateralization from the left circumflex and left ante rior descending artery system. Preserved ejection fraction. RECOMMENDATIONS Medical therapy If patient fails medical therapy we will consider angioplasty to the mid to distal right coronary art ezequiel. DESCRIPTION OF PROCEDURE The patient arrived to the procedure lab. The risks and benefits of the procedure as well as a full d escription of our services here and current unavailability of surgical backup were fully explained to the patient and/or their significant other prior to the catheterization. The Timeout was completed, verifying the correct patient and procedure. The patient's procedural site was prepped and draped in the usual fashion. Local anesthetic was given subcutaneously to right radial region with Lidocaine 2% . Using a modified Seldinger technique, arterial access was obtained via the right radial artery, a 6 Fr sheath was inserted. Left Coronary Artery selective angiography was performed in multiple views u sing a 5 Fr. 4.0 [place] catheter. Right Coronary Artery selective angiography was then performed in mu ltiple views using a 5 Fr. 4.0 [place] catheter. Left Ventriculography was performed in REY projection using a 5 Fr. [place] catheter. LV to AO pullback pressures were then recorded.The arterial sheath was pulled and a TR Band was applied for hemostasis CORONARY ANGIOGRAPHY DOMINANCE: Right Dominant LEFT HEART ASSESSMENT Left Ventricular Ejection Fraction: by LV Gram 60 % Normal Left Ventricular systolic function LEFT MAIN: Mild calcification, No significant disease noted LEFT ANTERIOR DESCENDING ARTERY: PROX LAD: Previously placed stent is patent CIRCUMFLEX ARTERY: MID CIRC: 60 at bifurcation % Stenosis RIGHT CORONARY ARTERY: MID RCA: Subtotally occluded in the mid to distal segment feeding into a small posterior lateral bran ch. Near-total collateralization of the right coronary artery system is noted. COLLATERAL FLOW: Collateral flow from Left to Right COMPLICATIONS No Complications PROCEDURE MEDICATIONS Fentanyl 50 mcg IV Versed 1 mg IV Oxygen: 2 L/min via nasal cannula Heparin diluted in 23cc Heparinized saline. Patient given 10cc IA of this solution. 07/20/2020 08:34 :02 Verapamil 2.5mg, Ntg 100mcgs, 2000 units of Heparin diluted in 23cc Heparinized saline. Patient give n 10cc IA of this solution. 07/20/2020 08:34:02 SUMMARY OF HEMODYNAMIC DATA Time AIR REST ECG 07:34:09 AO 122/56 (85) SA 08:35:59 AO 153/56 (95) 08:38:04 AO 159/71 (110) 08:48:43 LV 166/10, 19 09:01:13 LV 158/9, 18 09:01:19 LV 139/10, 16 09:01:59 LV 150/12, 19 09:02:05 LVp 166/13, 20 09:02:11 AOp 162/67 (112) 09:02:16 Signed By Sonny Person MD On 07/20/2020 09:33:32 Sonny Person MD
== END 2020-07-20 10:53 | disposition home or self-care (01) ==
LOC: CLSP 06:54
PROVIDERS: Nurse Practitioner Family; PCP Family Medicine Geriatric Medicine; Referring Provider Internal Medicine Cardiovascular Disease; Visit Provider Internal Medicine Cardiovascular Disease
DX: I25.10 Atherosclerotic heart disease of native coronary artery without angina pectoris (principal); Z95.5 Presence of coronary angioplasty implant and graft; I10 Essential (primary) hypertension; I48.0 Paroxysmal atrial fibrillation; I71.2 Thoracic aortic aneurysm, without rupture; I27.20 Pulmonary hypertension, unspecified; E78.00 Pure hypercholesterolemia, unspecified; Z86.711 Personal history of pulmonary embolism; Z79.01 Long term (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 anticoagulants; Z79.899 Other long term (current) drug therapy
CPT/HCPCS: 36415; 36416; 80048; 85025; 85610; 85730; 93458; 99152; 99153; J7040; Q9967; C1769; C1894

== ENCOUNTER → 2020-08-13 10:53 | Outpatient (CLI) | payer MEDICARE, OTHER, SELFPAY ==
[2020-07-19 09:22] VITALS: BMI 41.5
[2020-08-13 12:52] LABS: Absolute Lymphocyte Count 1.44 X10^3/uL (0.83-4.51); Absolute Neutrophil Count 9.5 X10^3/uL (2.0-7.7); Basophil# 0.04 X10^3/uL; Basophil% 0.3 % (0-1); Eosinophil# 0.04 X10^3/uL; Eosinophils% 0.3 % (0-5); Hematocrit 42.1 % (37-47); Hemoglobin 13.2 g/dL (12.0-15.0); Lymphocyte # 1.44 X10^3/ul (4.0); Mean Corp Hgb Conc 31.4 g/dL (32-36); Mean Corpuscular Hgb 31.3 pg (27.0-32.0); Mean Corpuscular Volume 99.8 fL (81-99); Mean Platelet Vol. 11.4 fl (6.2-12.0); Monocyte# 0.94 X10^3/uL; Monocyte% 7.8 % (0-10); NRBC Flagged by Analyzer 0 % (0-5); Neutrophil # 9.51 X10^3/uL (2.7-7.7); Neutrophil % 79.2 % (47-70); Platelet Count 252 K/mm3 (150-450); Red Blood Count 4.22 M/mm3 (4.2-5.4)
[2020-08-13 13:42] LABS: ALB/GLOB Ratio 1.1 RATIO (0.9-2.4); AST(SGOT) 3 U/L (15-37); Alanine Aminotransfer ALT/SGPT 18 U/L (13-56); Albumin, Serum 3.3 g/dL (3.2-5.0); Alkaline Phosphatase 128 U/L (45-117); Anion Gap 7 (5-15); BUN 27 mg/dL (7-18); BUN/Creat Ratio 25.2 RATIO (10-20); Calcium,Total 9.8 mg/dL (8.5-10.1); Chloride 106 mmol/L (98-107); Creatinine, Serum 1.07 mg/dL (0.55-1.02); EST Glomerular Filtration Rate 52 mL/min (>60); Est Glom Filt Rate - Afr Amer 63 mL/min (>60); Globulin 3.1 g/dL (2.2-4.2); Glucose 148 mg/dL (74-106); Potassium 4.3 mmol/L (3.5-5.1); Protein, Total 6.4 g/dL (6.4-8.2); Sodium Level 141 mmol/L (136-145); Thyroid Stim Hormone (TSH) 0.37 uIU/mL (0.358-3.74)
== END ==
PROVIDERS: PCP Family Medicine Geriatric Medicine; Visit Provider Family Medicine Geriatric Medicine
DX: I10 Essential (primary) hypertension (principal); E55.9 Vitamin D deficiency, unspecified
CPT/HCPCS: 36415; 80053; 82306; 84443; 85025

== ENCOUNTER → 2020-10-03 16:28 | Outpatient (CLI) | payer MEDICARE, OTHER, SELFPAY ==
[2020-07-19 09:22] VITALS: BMI 41.5
[2020-10-03 17:01] LABS: Anion Gap 5 (5-15); BUN 25 mg/dL (7-18); BUN/Creat Ratio 21.7 RATIO (10-20); Calcium,Total 9.8 mg/dL (8.5-10.1); Chloride 104 mmol/L (98-107); Creatinine, Serum 1.15 mg/dL (0.55-1.02); EST Glomerular Filtration Rate 48 mL/min (>60); Est Glom Filt Rate - Afr Amer 58 mL/min (>60); Glucose 117 mg/dL (74-106); Potassium 3.5 mmol/L (3.5-5.1); Sodium Level 140 mmol/L (136-145)
== END ==
PROVIDERS: PCP Family Medicine Geriatric Medicine; Visit Provider Family Medicine Geriatric Medicine
DX: N18.30 Chronic kidney disease, stage 3 unspecified (principal)
CPT/HCPCS: 36415; 80048

== ENCOUNTER → 2020-10-04 17:46 | Outpatient (CLI) | payer MEDICARE, OTHER, SELFPAY ==
[2020-07-19 09:22] VITALS: BMI 41.5
== END ==
PROVIDERS: PCP Family Medicine Geriatric Medicine; Referring Provider Family Medicine Geriatric Medicine; Visit Provider Family Medicine Geriatric Medicine
DX: R68.83 Chills (without fever) (principal)
CPT/HCPCS: 87633; 87635; C9803; U0005; U0003

== ENCOUNTER → 2020-10-30 11:29 | Outpatient (CLI) | payer MEDICARE, OTHER, SELFPAY ==
[2020-07-19 09:22] VITALS: BMI 41.5
[2020-10-30 13:54] LABS: Anion Gap 3 (5-15); BUN 19 mg/dL (7-18); BUN/Creat Ratio 20.3 RATIO (10-20); Chloride 104 mmol/L (98-107); Creatinine, Serum 0.94 mg/dL (0.55-1.02); EST Glomerular Filtration Rate 61 mL/min (>60); Est Glom Filt Rate - Afr Amer 73 mL/min (>60); Glucose 108 mg/dL (74-106); Potassium 3.8 mmol/L (3.5-5.1); Sodium Level 141 mmol/L (136-145)
== END ==
PROVIDERS: PCP Family Medicine Geriatric Medicine; Referring Provider Family Medicine Geriatric Medicine; Visit Provider Family Medicine Geriatric Medicine
DX: N18.30 Chronic kidney disease, stage 3 unspecified (principal)
CPT/HCPCS: 36415; 80048

== ENCOUNTER → 2020-11-07 10:57 | Outpatient (CLI) | payer MEDICARE, OTHER, SELFPAY ==
[2020-07-19 09:22] VITALS: BMI 41.5
[2020-11-07 12:16] LABS: Anion Gap 7 (5-15); BUN 31 mg/dL (7-18); BUN/Creat Ratio 19.6 RATIO (10-20); Calcium,Total 10.4 mg/dL (8.5-10.1); Chloride 100 mmol/L (98-107); Creatinine, Serum 1.58 mg/dL (0.55-1.02); EST Glomerular Filtration Rate 33 mL/min (>60); Est Glom Filt Rate - Afr Amer 40 mL/min (>60); Glucose 165 mg/dL (74-106); Potassium 3.1 mmol/L (3.5-5.1); Sodium Level 138 mmol/L (136-145)
== END ==
PROVIDERS: PCP Family Medicine Geriatric Medicine; Referring Provider Family Medicine Geriatric Medicine; Visit Provider Family Medicine Geriatric Medicine
DX: N18.30 Chronic kidney disease, stage 3 unspecified (principal)
CPT/HCPCS: 36415; 80048

== ENCOUNTER → 2020-11-12 11:42 | Outpatient (CLI) | payer MEDICARE, OTHER, SELFPAY ==
[2020-07-19 09:22] VITALS: BMI 41.5
[2020-11-12 12:31] LABS: Absolute Lymphocyte Count 1.42 X10^3/uL (0.83-4.51); Absolute Neutrophil Count 11.1 X10^3/uL (2.0-7.7); Basophil% 0.7 % (0-1); Eosinophils% 3.5 % (0-5); Hemoglobin 14.1 g/dL (12.0-15.0); Lymphocyte # 1.42 X10^3/ul (4.0); Lymphocyte % 10.1 % (19-41); Mean Corp Hgb Conc 32.8 g/dL (32-36); Mean Corpuscular Hgb 32.3 pg (27.0-32.0); Mean Corpuscular Volume 98.6 fL (81-99); Monocyte# 0.87 X10^3/uL; Monocyte% 6.2 % (0-10); NRBC Flagged by Analyzer 0 % (0-5); Neutrophil # 11.08 X10^3/uL (2.7-7.7); Neutrophil % 78.6 % (47-70); Platelet Count 244 K/mm3 (150-450); RBC Distribution Width CV 12.9 % (11.6-14.6); RBC Distribution Width SD 46.6 fl (35.1-43.9); Red Blood Count 4.36 M/mm3 (4.2-5.4); White Blood Count 14.1 K/mm3 (4.4-11.0)
[2020-11-12 12:44] LABS: AST(SGOT) 14 U/L (15-37); Alanine Aminotransfer ALT/SGPT 16 U/L (13-56); Albumin, Serum 3.2 g/dL (3.2-5.0); Alkaline Phosphatase 153 U/L (45-117); Anion Gap 9 (5-15); BUN 34 mg/dL (7-18); BUN/Creat Ratio 23.6 RATIO (10-20); Calcium,Total 10.1 mg/dL (8.5-10.1); Chloride 97 mmol/L (98-107); Creatinine, Serum 1.44 mg/dL (0.55-1.02); EST Glomerular Filtration Rate 37 mL/min (>60); Est Glom Filt Rate - Afr Amer 45 mL/min (>60); Globulin 3.3 g/dL (2.2-4.2); Glucose 202 mg/dL (74-106); Potassium 3.5 mmol/L (3.5-5.1); Protein, Total 6.5 g/dL (6.4-8.2); Sodium Level 137 mmol/L (136-145); Thyroid Stim Hormone (TSH) 0.94 uIU/mL (0.358-3.74)
[2020-11-12 13:17] LABS: Vitamin D,25 Hydroxy 32.6 ng/mL
== END ==
PROVIDERS: PCP Family Medicine Geriatric Medicine; Visit Provider Family Medicine Geriatric Medicine
DX: I10 Essential (primary) hypertension (principal); E55.9 Vitamin D deficiency, unspecified; M10.9 Gout, unspecified; E78.49 Other hyperlipidemia
CPT/HCPCS: 36415; 80053; 82306; 84443; 84550; 85025

== ENCOUNTER → 2020-11-20 10:31 | Outpatient (CLI) | payer MEDICARE, OTHER, SELFPAY ==
[2020-07-19 09:22] VITALS: BMI 41.5
[2020-11-20 12:55] LABS: Anion Gap 9 (5-15); BUN 32 mg/dL (7-18); Calcium,Total 10.4 mg/dL (8.5-10.1); Chloride 98 mmol/L (98-107); Creatinine, Serum 1.39 mg/dL (0.55-1.02); EST Glomerular Filtration Rate 38 mL/min (>60); Est Glom Filt Rate - Afr Amer 46 mL/min (>60); Glucose 200 mg/dL (74-106); Potassium 3.6 mmol/L (3.5-5.1); Sodium Level 137 mmol/L (136-145)
== END ==
PROVIDERS: PCP Family Medicine Geriatric Medicine; Referring Provider Family Medicine Geriatric Medicine; Visit Provider Family Medicine Geriatric Medicine
DX: R60.9 Edema, unspecified (principal)
CPT/HCPCS: 36415; 80048

== ENCOUNTER → 2020-12-13 11:51 | Outpatient (CLI) | payer MEDICARE, OTHER, SELFPAY ==
[2020-07-19 09:22] VITALS: BMI 41.5
[2020-12-13 12:41] LABS: Anion Gap 5 (5-15); BUN 18 mg/dL (7-18); BUN/Creat Ratio 17.1 RATIO (10-20); Calcium,Total 10.1 mg/dL (8.5-10.1); Chloride 106 mmol/L (98-107); Creatinine, Serum 1.05 mg/dL (0.55-1.02); EST Glomerular Filtration Rate 53 mL/min (>60); Est Glom Filt Rate - Afr Amer 64 mL/min (>60); Glucose 163 mg/dL (74-106); Potassium 3.8 mmol/L (3.5-5.1); Sodium Level 140 mmol/L (136-145)
== END ==
PROVIDERS: PCP Family Medicine Geriatric Medicine; Visit Provider Family Medicine Geriatric Medicine
DX: R60.9 Edema, unspecified (principal)
CPT/HCPCS: 36415; 80048

== ENCOUNTER → 2020-12-20 09:32 | Outpatient (CLI) | payer MEDICARE, OTHER, SELFPAY ==
[2020-07-19 09:22] VITALS: BMI 41.5
[2020-12-20 12:24] LABS: Anion Gap 7 (5-15); BUN 24 mg/dL (7-18); BUN/Creat Ratio 21.1 RATIO (10-20); Calcium,Total 10.3 mg/dL (8.5-10.1); Chloride 101 mmol/L (98-107); Creatinine, Serum 1.14 mg/dL (0.55-1.02); EST Glomerular Filtration Rate 48 mL/min (>60); Est Glom Filt Rate - Afr Amer 58 mL/min (>60); Glucose 129 mg/dL (74-106); Potassium 3.5 mmol/L (3.5-5.1); Sodium Level 139 mmol/L (136-145)
== END ==
PROVIDERS: PCP Family Medicine Geriatric Medicine; Visit Provider Family Medicine Geriatric Medicine
DX: R60.9 Edema, unspecified (principal)
CPT/HCPCS: 36415; 80048

== ENCOUNTER → 2021-02-04 15:02 | Outpatient (CLI) | payer MEDICARE, OTHER, SELFPAY ==
[2020-12-24 10:24] VITALS: BMI 42.9
[2021-02-04 16:39] LABS: Hematocrit 41.8 % (37-47); Hemoglobin 13.3 g/dL (12.0-15.0); Mean Corp Hgb Conc 31.8 g/dL (32-36); Mean Corpuscular Hgb 31.5 pg (27.0-32.0); Mean Corpuscular Volume 99.1 fL (81-99); Mean Platelet Vol. 11.4 fl (6.2-12.0); Platelet Count 295 K/mm3 (150-450); RBC Distribution Width CV 13.7 % (11.6-14.6); RBC Distribution Width SD 49.9 fl (35.1-43.9); Red Blood Count 4.22 M/mm3 (4.2-5.4); White Blood Count 10.3 K/mm3 (4.4-11.0)
[2021-02-04 17:14] LABS: AST(SGOT) 10 U/L (15-37); Alanine Aminotransfer ALT/SGPT 18 U/L (13-56); Albumin, Serum 3.2 g/dL (3.2-5.0); Alkaline Phosphatase 141 U/L (45-117); Bilirubin, Direct 0.13 mg/dL (0.00-0.30); Globulin 3.2 g/dL (2.2-4.2); Protein, Total 6.4 g/dL (6.4-8.2)
[2021-02-04 17:35] LABS: BNP,B-Type NATRIURETIC PEPTIDE 144.2 pg/mL (0-100)
== END ==
PROVIDERS: PCP Family Medicine Geriatric Medicine; Visit Provider Internal Medicine Pulmonary Disease
DX: R06.00 Dyspnea, unspecified (principal); I27.0 Primary pulmonary hypertension
CPT/HCPCS: 36415; 80076; 83880; 85027

== ENCOUNTER → 2021-02-12 11:54 | Outpatient (CLI) | payer MEDICARE, OTHER, SELFPAY ==
[2020-12-24 10:24] VITALS: BMI 42.9
[2021-02-12 12:22] LABS: Absolute Lymphocyte Count 1.58 X10^3/uL (0.83-4.51); Absolute Neutrophil Count 8.1 X10^3/uL (2.0-7.7); Basophil# 0.08 X10^3/uL; Basophil% 0.7 % (0-1); Eosinophils% 7.8 % (0-5); Hematocrit 39.3 % (37-47); Hemoglobin 12.7 g/dL (12.0-15.0); Lymphocyte # 1.58 X10^3/ul (0.83-4.51); Lymphocyte % 13.7 % (19-41); Mean Corp Hgb Conc 32.3 g/dL (32-36); Mean Corpuscular Hgb 31.4 pg (27.0-32.0); Mean Corpuscular Volume 97.3 fL (81-99); Mean Platelet Vol. 11.2 fl (6.2-12.0); Monocyte# 0.88 X10^3/uL; Monocyte% 7.6 % (0-10); NRBC Flagged by Analyzer 0 % (0-5); Neutrophil # 8.05 X10^3/uL (2.7-7.7); Neutrophil % 69.5 % (47-70); Platelet Count 256 K/mm3 (150-450); RBC Distribution Width CV 13.7 % (11.6-14.6); RBC Distribution Width SD 49.1 fl (35.1-43.9); Red Blood Count 4.04 M/mm3 (4.2-5.4); White Blood Count 11.6 K/mm3 (4.4-11.0)
[2021-02-12 12:55] LABS: AST(SGOT) 11 U/L (15-37); Alanine Aminotransfer ALT/SGPT 19 U/L (13-56); Alkaline Phosphatase 127 U/L (45-117); Anion Gap 6 (5-15); BUN 19 mg/dL (7-18); BUN/Creat Ratio 16.1 RATIO (10-20); Calcium,Total 9.7 mg/dL (8.5-10.1); Chloride 103 mmol/L (98-107); Creatinine, Serum 1.18 mg/dL (0.55-1.02); EST Glomerular Filtration Rate 46 mL/min (>60); Est Glom Filt Rate - Afr Amer 56 mL/min (>60); Glucose 173 mg/dL (74-106); Potassium 3.7 mmol/L (3.5-5.1); Sodium Level 139 mmol/L (136-145); Thyroid Stim Hormone (TSH) 1.76 uIU/mL (0.358-3.74); Uric Acid 7.2 mg/dL (2.6-6.0)
[2021-02-14 12:38] LABS: Vitamin D,25 Hydroxy 25.2 ng/mL
== END ==
PROVIDERS: PCP Family Medicine Geriatric Medicine; Visit Provider Family Medicine Geriatric Medicine
DX: I10 Essential (primary) hypertension (principal); E55.9 Vitamin D deficiency, unspecified; M10.9 Gout, unspecified
CPT/HCPCS: 36415; 80053; 82306; 84443; 84550; 85025

== ENCOUNTER → 2021-02-27 | Outpatient (CLI) | payer MEDICARE, OTHER, SELFPAY ==
[2020-12-24 10:24] VITALS: BMI 42.9
== END | disposition home or self-care (01) ==
LOC: LABSPEC 16:01
PROVIDERS: PCP Family Medicine Geriatric Medicine; Referring Provider Family Medicine Geriatric Medicine; Visit Provider Family Medicine Geriatric Medicine
DX: R68.83 Chills (without fever) (principal)
CPT/HCPCS: 87635; C9803; U0005; U0003

== ENCOUNTER 2021-03-28 20:18 | Emergency (ER) | payer MEDICARE, OTHER, SELFPAY ==
[2020-12-24 10:24] VITALS: BMI 42.9
[2021-03-28 20:19] VITALS: BP 119/59; PULSE 90; PULSE 94; RESP 16; RESP 20; TEMP 36.1; O2SAT 95; BMI 43.8
--- NOTE | 2021-03-28 20:57 | EKG12_ITS ---
Test Reason : PALPITATIONS Blood Pressure : / mmHG Vent. Rate : 084 BPM Atrial Rate : 084 BPM P-R Int : 176 ms QRS Dur : 100 ms QT Int : 390 ms P-R-T Axes : 088 040 017 degrees QTc Int : 460 ms Normal sinus rhythm Normal ECG Confirmed by VERÓNICA ESTRADA, GABBY ([id number]), marketing editor OWEN WILDER ([id number]) on 04/01/2021 1:07:12 PM Referred By: KRYSTA Confirmed By:GABBY SANCHES MD
[2021-03-28 21:11] LABS: Absolute Lymphocyte Count 2.14 X10^3/uL (0.83-4.51); Absolute Neutrophil Count 8.7 X10^3/uL (2.0-7.7); Basophil# 0.05 X10^3/uL; Basophil% 0.4 % (0-1); Eosinophil# 0.17 X10^3/uL; Eosinophils% 1.4 % (0-5); Hematocrit 40.3 % (37-47); Hemoglobin 13.3 g/dL (12.0-15.0); Lymphocyte # 2.14 X10^3/ul (0.83-4.51); Lymphocyte % 17.4 % (19-41); Mean Corpuscular Hgb 31.6 pg (27.0-32.0); Mean Corpuscular Volume 95.7 fL (81-99); Mean Platelet Vol. 11.1 fl (6.2-12.0); Monocyte# 1.13 X10^3/uL; Monocyte% 9.2 % (0-10); NRBC Flagged by Analyzer 0 % (0-5); Neutrophil # 8.71 X10^3/uL (2.7-7.7); Platelet Count 261 K/mm3 (150-450); RBC Distribution Width CV 13.8 % (11.6-14.6); RBC Distribution Width SD 48.1 fl (35.1-43.9); Red Blood Count 4.21 M/mm3 (4.2-5.4); White Blood Count 12.3 K/mm3 (4.4-11.0)
--- NOTE | 2021-03-28 21:20 | RAD_ITS ---
INDICATION: Dyspnea EXAMINATION/TECHNIQUE: X-RAY - XR Chest 1 View COMPARISON: 07/13/2020. FINDINGS: The lungs are clear. Tortuous and calcified thoracic aorta. The heart is not enlarged. Is eventration of the right hemidiaphragm. No pleural effusion or pneumothorax. Degenerative changes of the thoracic spine and shoulders. RAD/Chest 1 View (Portable) IMPRESSION: No acute radiographic abnormalities. Electronically Signed: Trip Dobson MD at 22:08 EDT Tel , Service support ,
[2021-03-28 21:23] LABS: Bacteria 0 SEEN /hpf (None Seen); Color, Urine Straw (Yellow); Glucose, Dipstick Normal (Normal); Ketone-Dipstick Negative (Negative); Leukocyte Esterase-Dipstick Negative /ul (Negative); Mucous, Urine 0 SEEN /hpf (<or=2+); Nitrite-Dipstick Negative (Negative); Occult Blood-Urine Negative /ul (Negative); Protein-Dipstick Negative (Negative); Red Blood Cells-Urine 0 SEEN /hpf (0-5); Urine Bilirubin Dipstick Negative (Negative); Urine Clarity Clear (Clear); Urine Urobilinogen Normal (Normal); White Blood Cells 0 SEEN /hpf (0-5)
[2021-03-28 21:30] VITALS: BP 146/64; PULSE 82; RESP 15; O2SAT 96
[2021-03-28 21:32] LABS: ALB/GLOB Ratio 0.9 RATIO (0.9-2.4); AST(SGOT) 11 U/L (15-37); Alanine Aminotransfer ALT/SGPT 16 U/L (13-56); Albumin, Serum 3.1 g/dL (3.2-5.0); Alkaline Phosphatase 136 U/L (45-117); Anion Gap 6 (5-15); BUN 31 mg/dL (7-18); BUN/Creat Ratio 23.5 RATIO (10-20); Chloride 98 mmol/L (98-107); Creatinine, Serum 1.32 mg/dL (0.55-1.02); EST Glomerular Filtration Rate 41 mL/min (>60); Est Glom Filt Rate - Afr Amer 49 mL/min (>60); Estimated Creatinine Clearance 26.91 ml/min; Globulin 3.3 g/dL (2.2-4.2); Glucose 165 mg/dL (74-106); Lipase 67 U/L (73-393); Protein, Total 6.4 g/dL (6.4-8.2); Sodium Level 137 mmol/L (136-145); Troponin-I HS 28.9 pg/mL (3.0-53.7)
[2021-03-28 21:32] LABS: Squamous Epithelial Cells - UA 0-5 SEEN /hpf (5-10)
[2021-03-28 22:00] VITALS: BP 133/55; PULSE 82; RESP 13; O2SAT 96
[2021-03-28 22:42] LABS: Troponin-I HS 30.9 pg/mL (3.0-53.7)
[2021-03-28 23:00] VITALS: BP 136/61; PULSE 81; RESP 12; O2SAT 96
--- NOTE | 2021-03-28 23:15 | ED.VIS.CHEST ---
HPI History of Present Illness Chief Complaint: Palpitations Informant: patient Onset/Context/Timing Onset: Today Activity at onset: sudden Timing: Intermittent and Lasts (1 hour) Quality: Positive for Heaviness and - (Racing) Location: Substernal Worsened By: Nothing Relieved By: NTG Associated Symptoms: Positive for Dyspnea and Palpitations; Negative for Nausea, Vomiting, Diaphoresis, Cough, Fever, Lightheadedness and Acid Reflux Narrative Narrative: Patient presents with palpitations that began today. Patient states she felt like her heart was racing. Patient admits to some heaviness in her chest. Patient admits to some shortness of breath with this. Patient states this lasted approximately 1 hour. Patient states it has resolved. Patient states it improved after taking nitroglycerin. Patient denies any headaches. Patient denies any nausea or vomiting. Patient denies any diaphoresis. [facility] Medical History (Updated 03/28/21 @ 23:[address] 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 ADAIR (obstructive sleep apnea) Palpitations Paroxysmal atrial fibrillation Paroxysmal tachycardia Pulmonary embolism Secondary pulmonary arterial hypertension Segmental and somatic dysfunction of lumbar region Segmental and somatic dysfunction of pelvic region Segmental and somatic dysfunction of thoracic region Syncope and collapse Thoracic aortic aneurysm VTE (venous thromboembolism) Home Medications budesonide-formoterol 2 puff INHALATION BID 11/24/13 [History Last Taken 09/13/18] ascorbic acid (vitamin C) 500 mg PO DAILY 05/12/17 [History Last Taken 09/13/18] tiotropium bromide 1 puff INHALATION DAILY 05/12/17 [History Last Taken 09/13/18] nitroglycerin 0.4 mg sublingual tablet 0.4 mg SUBLINGUAL Q5M PRN 12/10/17 [History Last Taken Unknown] acetaminophen 500 mg capsule 500 mg PO Q6H PRN 12/28/17 [History Last Taken Unknown] allopurinol 100 mg PO DAILYCM 09/13/18 [History Last Taken 09/13/18] cyanocobalamin (vitamin B-12) 1,000 mcg PO DAILY 09/13/18 [History Last Taken 09/12/18] hydrocodone-acetaminophen 1 tab PO BID 09/13/18 [History Last Taken 09/13/18] methenamine hippurate 1 gm PO BID 09/13/18 [History Last Taken 09/13/18] warfarin 3 mg PO DAILY 09/13/18 [History Last Taken 07/15/20] furosemide 40 mg tablet 80 mg PO BID tab 06/20/20 [History Last Taken Unknown] icosapent ethyl 1 gram capsule 2 g PO BID 06/20/20 [History Last Taken Unknown] potassium chloride 20 mEq tablet,extended release 40 meq PO TID tab 06/20/20 [History Last Taken Unknown] aspirin 81 mg tablet,delayed release 81 mg PO QDAY #30 tab 06/28/20 [Rx Last Taken 07/20/20] amlodipine 5 mg tablet 5 mg PO DAILY #90 tab 07/20/20 [Rx Last Taken Unknown] metoprolol tartrate 50 mg tablet 50 mg PO BID #180 tab 07/20/20 [Rx Last Taken Unknown] isosorbide mononitrate 60 mg tablet,extended release 24 hr 60 mg PO DAILY #90 tab 08/01/20 [Rx Last Taken Unknown] chlorthalidone 25 mg tablet 12.5 mg PO .COMPLEX tab 01/16/21 [History Last Taken Unknown] esomeprazole magnesium 40 mg PO DAILY 03/28/21 [History Last Taken Unknown] levothyroxine 88 mcg PO DAILY 03/28/21 [History Last Taken Unknown] mirabegron [Myrbetriq] 50 mg PO DAILY 03/28/21 [History Last Taken Unknown] Allergy/AdvReac Type Severity Reaction Status Date / Time ibuprofen Allergy Unknown Verified 03/28/21 20:18 chlorthalidone AdvReac Intermediate Really Verified 03/28/21 20:18 dizzy and lightheaded Family History Father Myocardial infarction hx black lung Mother CHF (congestive heart failure) Sister CAD (coronary artery disease) Hx CABG Myocardial infarction Diabetes CHF (congestive heart failure) Brother FH: ALS (amyotrophic lateral sclerosis) Brother pacemaker Surgical History History of coronary artery stent placement (11/2013) History of hysterectomy History of left heart catheterization (07/20/20) Social History Smoking Status: Never smoker alcohol intake: never substance use type: does not use diet: low salt caffeine: No what type of physical activity do you participate in: none seatbelt use: always do you feel safe at home: Yes ROS ROS ED Constitutional Constitutional ED: Denies chills, fever(s) or sweats Eyes Eyes: Denies blurry vision or change in vision ENT ENT ED: Denies rhinorrhea or sore throat Cardiovascular Cardiovascular: Reports chest pain and palpitations Respiratory/Chest Respiratory/Chest: Reports dyspnea; Denies cough Gastrointestinal Gastrointestinal: Denies abdominal pain, nausea or vomiting Genitourinary Genitourinary ED: Denies dysuria or hematuria Musculoskeletal Musculoskeletal: Denies back pain or neck pain Integumentary Denies abscess or rash Neurologic Neurologic: Denies headache(s) or weakness Allergic/Immunologic Allergic/Immunologic ED: Denies mouth swelling or urticaria EXAM Physical Exam Const Vital Signs: 03/28/21 20:19 03/28/21 20:47 03/28/21 21:30 Temperature 97.0 F L Temperature Source Temporal Pulse Rate 90 82 Respiratory Rate 16 15 Respiratory Effort Normal Non-Labored Blood Pressure 119/59 L 146/64 H Blood Pressure Mean 79 91 Pulse Ox 95 96 Oxygen Delivery Method Room Air Room Air 03/28/21 22:00 03/28/21 23:00 Temperature Temperature Source Pulse Rate 82 81 Respiratory Rate 13 12 Respiratory Effort Blood Pressure 133/55 H 136/61 H Blood Pressure Mean 81 86 Pulse Ox 96 96 Oxygen Delivery Method Room Air Room Air Positive well nourished, well developed and obese General Appearance ED: well developed Nutritional Appearance: obese HEENT normocephalic and atraumatic Eyes PERRL and EOMs intact bilaterally Neck supple and no JVD Chest Wall palpation of chest normal Resp normal respiratory effort and clear to auscultation bilaterally Effort and Inspection: Negative for respiratory distress Cardio regular rate, regular rhythm and no murmurs GI normal to inspection, nondistended, normoactive bowel sounds, soft to palpation, non-tender and non-distended Extremity normal to inspection General Extremety ED: Negative for edema or tenderness General Extremity: Negative for edema Neuro oriented x3, CN's II-XII intact bilaterally and no sensory deficits noted Sensorium / Orientation: awake and alert Motor Exam: strength 5/5 throughout Psych mental status grossly normal Heart Score History: Slightly/Non-Suspicious ECG: Normal Age: >/= 65 years Risk Factors: 1 or 2 Risk Factors Troponin: </= Normal Limit Score: 3 MDM MDM MDM Narrative Medical decision making narrative: EKG was obtained. On my interpretation, it showed a normal sinus rhythm with a rate of 84. MS interval, QRS interval, and QTc intervals were all normal. [place] was normal. There are no acute ST or T wave changes. Portable 1 view chest x-ray was obtained. On my interpretation, lung villegas are clear. There is normal cardiac silhouette. Bony thorax is normal. There is no acute process noted. Radiologist also interpreted the x-ray and agrees. CBC shows a slight leukocytosis of 12.3. Comprehensive metabolic profile showed a creatinine of 1.32 and a BUN of 31. These are consistent with prior results. Urinalysis does not show any evidence of urinary tract infection. Lipase was normal. High-sensitivity troponin was 28.9. A delta troponin was obtained 2 hours later and was 30.9. Patient has a HEART score of 3. Patient was advised that this is low risk for acute cardiac event at this time. Patient had no further episodes of palpitations here in the emergency department. Patient does have a history of atrial fibrillation. Patient was advised that she may have had a paroxysmal episode of atrial fibrillation. Patient was instructed to follow-up with her primary care physician in 3 to 5 days. Patient understood and was agreeable with the plan. All questions were answered. Lab Data Attestation: I reviewed the patient's lab results. Labs: Laboratory Results - last 24 hr 03/28/21 03/28/21 03/28/21 20:03 20:03 21:15 WBC 12.3 H RBC 4.21 Hgb 13.3 Hct 40.3 MCV 95.7 MCH 31.6 MCHC 33.0 RDW Std Deviation 48.1 H RDW Coeff of Robbi 13.8 Plt Count 261 MPV 11.1 Immature Gran % (Auto) 0.600 Neut % (Auto) 71.0 H Lymph % (Auto) 17.4 L [place] % (Auto) 9.2 Eos % (Auto) 1.4 Baso % (Auto) 0.4 Absolute Neuts (auto) 8.7 H Absolute Lymphs (auto) 2.14 Nucleated RBC % 0 Sodium 137 Potassium 3.0 L Chloride 98 Carbon Dioxide 33.0 H Anion Gap 6 BUN 31 H Creatinine 1.32 H Estim Creat Clear Calc 26.91 Est GFR (MDRD) Af Amer 49 L Est GFR (MDRD) Non-Af 41 L BUN/Creatinine Ratio 23.5 H Glucose 165 H Calcium 10.0 Total Bilirubin 0.70 AST 11 L ALT 16 Alkaline Phosphatase 136 H Troponin I High Sens 28.9 Total Protein 6.4 Albumin 3.1 L Globulin 3.3 Albumin/Globulin Ratio 0.9 Lipase 67 L Urine Color Straw Urine Clarity Clear Urine pH 6.0 Ur Specific [place] 1.010 Urine Protein Negative Urine Glucose (UA) Normal Urine Ketones Negative Urine Occult Blood Negative Urine Nitrite Negative Urine Bilirubin Negative Urine Urobilinogen Normal Ur Leukocyte Esterase Negative Urine RBC 0 SEEN Urine WBC 0 SEEN Ur Squamous Epith Cells 0-5 SEEN Urine Bacteria 0 SEEN Urine Mucus 0 SEEN 03/28/21 22:15 WBC RBC Hgb Hct MCV MCH MCHC RDW Std Deviation RDW Coeff of Robbi Plt Count MPV Immature Gran % (Auto) Neut % (Auto) Lymph % (Auto) [place] % (Auto) Eos % (Auto) Baso % (Auto) Absolute Neuts (auto) Absolute Lymphs (auto) Nucleated RBC % Sodium Potassium Chloride Carbon Dioxide Anion Gap BUN Creatinine Estim Creat Clear Calc Est GFR (MDRD) Af Amer Est GFR (MDRD) Non-Af BUN/Creatinine Ratio Glucose Calcium Total Bilirubin AST ALT Alkaline Phosphatase Troponin I High Sens 30.9 Total Protein Albumin Globulin Albumin/Globulin Ratio Lipase Urine Color Urine Clarity Urine pH Ur Specific [place] Urine Protein Urine Glucose (UA) Urine Ketones Urine Occult Blood Urine Nitrite Urine Bilirubin Urine Urobilinogen Ur Leukocyte Esterase Urine RBC Urine WBC Ur Squamous Epith Cells Urine Bacteria Urine Mucus Radiography Chest X-Ray - ED: 1 View, Read by ED Physician, Read by Radiologist and Normal Diagnostic Testing: Radiology Impression Chest X-Ray 03/28/21 21:20 IMPRESSION: No acute radiographic abnormalities. Electronically Signed: Trip Dobson MD at 22:08 EDT Tel , Service support , EKG Initial EKG: Attestation: I personally reviewed and interpreted this EKG as follows: Interpretation: Sinus Rhythm (84) and No Acute Injury Pattern Discharge Plan Triage Chief Complaint: Palpitations ED Provider: Buddy Flannery Dx/Rx/DC Orders Clinical Impression: Heart palpitations Instructions: ED Palpitations Prescriptions: No Action nitroglycerin [Nitrostat] 0.4 mg tablet, sublingual 0.4 mg SUBLINGUAL Q5M PRN (Reason: chest pain) RF: 0 acetaminophen 500 mg capsule 500 mg PO Q6H PRN (Reason: Headache) RF: 0 furosemide 40 mg tablet 80 mg PO BID RF: 0 Vascepa 1 gram capsule 2 g PO BID RF: 0 potassium chloride 20 mEq tablet extended release 40 meq PO TID RF: 0 budesonide-formoterol 1 INHALER inhaler 2 puff INHALATION BID RF: 0 ascorbic acid (vitamin C) 500 MG tablet 500 mg PO DAILY RF: 0 tiotropium bromide 1 PUFF inhaler 1 puff INHALATION DAILY RF: 0 hydrocodone-acetaminophen 1 EACH tablet 1 tab PO BID RF: 0 warfarin 2.5 MG tablet 3 mg PO DAILY RF: 0 allopurinol 100 MG tablet 100 mg PO DAILYCM RF: 0 methenamine hippurate 1 GM tablet 1 gm PO BID RF: 0 cyanocobalamin (vitamin B-12) 1,000 MCG capsule 1,000 mcg PO DAILY RF: 0 levothyroxine 88 mcg tablet 88 mcg PO DAILY RF: 0 esomeprazole magnesium 40 mg capsule,delayed release(DR/EC) 40 mg PO DAILY RF: 0 Myrbetriq 50 mg tablet extended release 24 hr 50 mg PO DAILY RF: 0 aspirin [Adult Aspirin Regimen] 81 mg tablet,delayed release (DR/EC) 81 mg PO QDAY Qty: 30 RF: 0 amlodipine 5 mg tablet 5 mg PO DAILY Qty: 90 RF: 3 metoprolol tartrate 50 mg tablet 50 mg PO BID Qty: 180 RF: 3 isosorbide mononitrate 60 mg tablet extended release 24 hr 60 mg PO DAILY Qty: 90 RF: 3 chlorthalidone 25 mg tablet 12.5 mg PO .COMPLEX RF: 0 Primary Care Provider: Aditya Hope Chi Referrals: Aditya Hope Chi, MD [Primary Care Provider] - 3-5 Days Disposition Disposition: Home, Self Care
[2021-03-28 23:46] VITALS: BP 136/91; PULSE 90; RESP 13; O2SAT 94
== END 2021-03-29 00:53 | disposition home or self-care (01) ==
PROVIDERS: Emergency Provider Emergency Medicine; PCP Family Medicine Geriatric Medicine
DX: R00.2 Palpitations (principal); R06.00 Dyspnea, unspecified; R07.89 Other chest pain; E03.9 Hypothyroidism, unspecified; E78.5 Hyperlipidemia, unspecified; G47.33 Obstructive sleep apnea (adult) (pediatric); I10 Essential (primary) hypertension; I25.10 Atherosclerotic heart disease of native coronary artery without angina pectoris; I27.21 Secondary pulmonary arterial hypertension; I48.0 Paroxysmal atrial fibrillation; I71.2 Thoracic aortic aneurysm, without rupture; J44.9 Chronic obstructive pulmonary disease, unspecified; K21.9 Gastro-esophageal reflux disease without esophagitis; Z86.718 Personal history of other venous thrombosis and embolism; Z86.711 Personal history of pulmonary embolism; Z95.5 Presence of coronary angioplasty implant and graft; Z79.01 Long term (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 anticoagulants; Z79.82 Long term (current) use of aspirin; Z79.899 Other long term (current) drug therapy
CPT/HCPCS: 71045; 80053; 81001; 83690; 84484; 85025; 93005; 99285

== ENCOUNTER → 2021-05-21 11:32 | Outpatient (CLI) | payer MEDICARE, OTHER, SELFPAY ==
[2021-05-21 12:30] LABS: Absolute Lymphocyte Count 1.41 X10^3/uL (0.83-4.51); Absolute Neutrophil Count 7.6 X10^3/uL (2.0-7.7); Basophil# 0.09 X10^3/uL; Basophil% 0.9 % (0-1); Eosinophil# 0.51 X10^3/uL; Eosinophils% 4.9 % (0-5); Hemoglobin 13.1 g/dL (12.0-15.0); Lymphocyte # 1.41 X10^3/ul (0.83-4.51); Lymphocyte % 13.5 % (19-41); Mean Corp Hgb Conc 32.8 g/dL (32-36); Mean Corpuscular Hgb 31.7 pg (27.0-32.0); Mean Corpuscular Volume 96.9 fL (81-99); Mean Platelet Vol. 11.3 fl (6.2-12.0); Monocyte% 7.6 % (0-10); NRBC Flagged by Analyzer 0 % (0-5); Neutrophil # 7.61 X10^3/uL (2.7-7.7); Neutrophil % 72.5 % (47-70); Platelet Count 271 K/mm3 (150-450); RBC Distribution Width CV 13.6 % (11.6-14.6); RBC Distribution Width SD 48.8 fl (35.1-43.9); Red Blood Count 4.13 M/mm3 (4.2-5.4); White Blood Count 10.5 K/mm3 (4.4-11.0)
[2021-05-21 13:09] LABS: Vitamin D,25 Hydroxy 30.9 ng/mL
[2021-05-21 13:22] LABS: ALB/GLOB Ratio 1.1 RATIO (0.9-2.4); AST(SGOT) 9 U/L (15-37); Alanine Aminotransfer ALT/SGPT 20 U/L (13-56); Albumin, Serum 3.4 g/dL (3.2-5.0); Alkaline Phosphatase 116 U/L (45-117); Anion Gap 6 (5-15); BUN 31 mg/dL (7-18); BUN/Creat Ratio 28.2 RATIO (10-20); Calcium,Total 10.1 mg/dL (8.5-10.1); Chloride 101 mmol/L (98-107); EST Glomerular Filtration Rate 50 mL/min (>60); Est Glom Filt Rate - Afr Amer 61 mL/min (>60); Globulin 3.1 g/dL (2.2-4.2); Glucose 173 mg/dL (74-106); Potassium 3.1 mmol/L (3.5-5.1); Protein, Total 6.5 g/dL (6.4-8.2); Sodium Level 139 mmol/L (136-145); Thyroid Stim Hormone (TSH) 0.93 uIU/mL (0.358-3.74); Uric Acid 8.4 mg/dL (2.6-6.0)
== END ==
PROVIDERS: PCP Family Medicine Geriatric Medicine; Referring Provider Family Medicine Geriatric Medicine; Visit Provider Family Medicine Geriatric Medicine
DX: E55.9 Vitamin D deficiency, unspecified (principal); I10 Essential (primary) hypertension; N39.0 Urinary tract infection, site not specified; M54.2 Cervicalgia
CPT/HCPCS: 36415; 80053; 82306; 84443; 84550; 85025; 87077; 87086; 87088

== ENCOUNTER → 2021-05-23 09:57 | Outpatient (CLI) | payer MEDICARE, OTHER, SELFPAY | PROVIDERS: PCP Family Medicine Geriatric Medicine; Referring Provider Family Medicine Geriatric Medicine; Visit Provider Family Medicine Geriatric Medicine | DX: R06.89 Other abnormalities of breathing (principal); E87.6 Hypokalemia | CPT/HCPCS: 87635; C9803; U0005; U0003 ==

== ENCOUNTER → 2021-05-28 | Outpatient (CLI) | payer MEDICARE, OTHER, SELFPAY ==
[2021-05-28 10:02] LABS: Anion Gap 5 (5-15); BUN 27 mg/dL (7-18); BUN/Creat Ratio 24.3 RATIO (10-20); Calcium,Total 10.2 mg/dL (8.5-10.1); Chloride 105 mmol/L (98-107); Creatinine, Serum 1.11 mg/dL (0.55-1.02); EST Glomerular Filtration Rate 50 mL/min (>60); Est Glom Filt Rate - Afr Amer 60 mL/min (>60); Glucose 145 mg/dL (74-106); Sodium Level 141 mmol/L (136-145)
== END | disposition home or self-care (01) ==
LOC: LABSPEC 08:45
PROVIDERS: PCP Family Medicine Geriatric Medicine; Referring Provider Family Medicine Geriatric Medicine; Visit Provider Family Medicine Geriatric Medicine
DX: E87.6 Hypokalemia (principal)
CPT/HCPCS: 36415; 80048

== ENCOUNTER → 2021-06-04 08:55 | Outpatient (CLI) | payer MEDICARE, OTHER, SELFPAY | PROVIDERS: PCP Family Medicine Geriatric Medicine; Referring Provider Physician Assistant Medical; Visit Provider Physician Assistant Medical | DX: I47.2 Ventricular tachycardia (principal); I48.0 Paroxysmal atrial fibrillation | CPT/HCPCS: 93225; 93226 ==

== ENCOUNTER → 2021-07-12 11:12 | Outpatient (CLI) | payer MEDICARE, OTHER, SELFPAY ==
[2021-07-12 12:45] LABS: Absolute Lymphocyte Count 1.48 X10^3/uL (0.83-4.51); Absolute Neutrophil Count 6.7 X10^3/uL (2.0-7.7); Basophil# 0.07 X10^3/uL; Basophil% 0.7 % (0-1); Eosinophil# 0.93 X10^3/uL; Eosinophils% 9.2 % (0-5); Hematocrit 43.1 % (37-47); Hemoglobin 13.8 g/dL (12.0-15.0); Lymphocyte # 1.48 X10^3/ul (0.83-4.51); Lymphocyte % 14.6 % (19-41); Mean Corpuscular Volume 96.9 fL (81-99); Mean Platelet Vol. 11.9 fl (6.2-12.0); Monocyte# 0.89 X10^3/uL; Monocyte% 8.8 % (0-10); NRBC Flagged by Analyzer 0 % (0-5); Neutrophil # 6.68 X10^3/uL (2.7-7.7); Platelet Count 282 K/mm3 (150-450); RBC Distribution Width CV 13.5 % (11.6-14.6); RBC Distribution Width SD 48.3 fl (35.1-43.9); Red Blood Count 4.45 M/mm3 (4.2-5.4); White Blood Count 10.1 K/mm3 (4.4-11.0)
[2021-07-12 12:57] LABS: Anion Gap 9 (5-15); BUN 30 mg/dL (7-18); Calcium,Total 10.6 mg/dL (8.5-10.1); Chloride 103 mmol/L (98-107); Creatinine, Serum 1.43 mg/dL (0.55-1.02); EST Glomerular Filtration Rate 37 mL/min (>60); Est Glom Filt Rate - Afr Amer 45 mL/min (>60); Glucose 209 mg/dL (74-106); Potassium 3.6 mmol/L (3.5-5.1); Sodium Level 138 mmol/L (136-145)
== END ==
PROVIDERS: PCP Family Medicine Geriatric Medicine; Visit Provider Family Medicine Geriatric Medicine
DX: R10.9 Unspecified abdominal pain (principal)
CPT/HCPCS: 36415; 80048; 85025

== ENCOUNTER → 2021-07-12 11:14 | Outpatient (CLI) | payer MEDICARE, OTHER, SELFPAY ==
--- NOTE | 2021-07-12 11:45 | RAD_ITS ---
STUDY: X-RAY - ABDOMEN/PELVIS REASON FOR EXAM: Female, 85 years old. ABD PAIN TECHNIQUE: Single AP view of the abdomen / pelvis. COMPARISON: None. FINDINGS: Normal visualized lung bases. There is an unremarkable bowel gas pattern. The visualized liver, spleen and kidneys are grossly normal in size and morphology. Multiple small calcifications in the right upper quadrant consistent with calcified gallstones. Dextroscoliosis of the lumbar spine with diffuse degenerative disc disease. RAD/Abd Inc Decub and/or Erect IMPRESSION: Cholelithiasis. Electronically Signed: Emmanuel Raymond MD at 12:31 EDT Tel , Service support ,
--- NOTE | 2021-07-12 11:48 | RAD_ITS ---
STUDY: X-RAY - LUMBAR SPINE REASON FOR EXAM: Female, 85 years old. LOW BACK PAIN TECHNIQUE: 3 view(s) of the lumbar spine were obtained. COMPARISON: 06/18/2015 FINDINGS: Normal lumbar lordosis. Mild dextroscoliosis centered at L1. There is a normal alignment of the vertebrae. There is multilevel endplate spondylosis of the lumbar vertebrae. There is multi-level degenerative disc disease with multi-level disc space narrowing. The soft tissue structures are unremarkable. RAD/Lumbar Spine 2 or 3 Views IMPRESSION: Mild dextroscoliosis with diffuse degenerative disc disease. MRI would be useful. Electronically Signed: Emmanuel Raymond MD at 12:30 EDT Tel , Service support ,
== END ==
PROVIDERS: PCP Family Medicine Geriatric Medicine; Referring Provider Family Medicine Geriatric Medicine; Visit Provider Family Medicine Geriatric Medicine
DX: M54.50 Low back pain, unspecified (principal); R10.9 Unspecified abdominal pain
CPT/HCPCS: 36415; 72100; 74019; 80048; 85025

== ENCOUNTER → 2021-08-02 08:56 | Outpatient (CLI) | payer MEDICARE, OTHER, SELFPAY ==
--- NOTE | 2021-08-02 08:58 | US_ITS ---
STUDY: ABDOMINAL ULTRASOUND - RIGHT UPPER QUADRANT REASON FOR VISIT: Female, 85 years old ABD PAIN TECHNIQUE: Ultrasound evaluation of the right upper quadrant was performed with real-time and static kan-scale imaging. TECHNICAL QUALITY: Adequate. COMPARISON: None. FINDINGS: Liver: The liver measures 16.9 cm. There is increased echogenicity consistent with fatty infiltration. The bile ducts are within normal limits. There is hepatic color flow. The direction of portal flow is hepatopetal. There is no demonstrated mass lesion. Gallbladder: Normal distended gallbladder. The gallbladder wall measures 2.8 mm. There is a negative sonographic Myers''s sign. There is no pericholecystic fluid. There are multiple echogenic structures within the gallbladder, consistent with multiple gallstones. Common Bile Duct (C.B.D.): The common bile duct measures 4.4 mm. Pancreas: Normal size of the head, body and tail of the pancreas. There is increased echogenicity of the pancreas. There is no demonstrated pancreatic mass or cyst. Right Kidney: Normal size of the right kidney. The right kidney measures 12.1 x 5.8 x 4.7 cm. Normal renal cortex. The right cortex measures 1.2 cm. There is no demonstrated renal mass or cyst. There is no right hydronephrosis. US/Abdomen Limited IMPRESSION: Fatty liver without a discrete lesion Cholelithiasis, no sonographic evidence of acute cholecystitis. There is sonographic suggestion of a stone within the neck of the gallbladder. Nonspecific echogenic pancreas Electronically Signed: Fer Turner MD at 11:07 EST , Service support ,
--- NOTE | 2021-08-02 08:59 | NM_ITS ---
CLINICAL: 85-year-old female with history of abdominal pain and radiographically defined cholelithiasis. RADIONUCLIDE HEPATOBILIARY SCINTIGRAPHY COMPARISON: Abdominal ultrasound report 08/02/2021 FINDINGS: Following the intravenous administration of 5.4 mCi of 99m Tc Mebrofenin, hepatobiliary images reveal: 1. Relatively prompt and homogeneous radiopharmaceutical concentration is noted by a normal sized liver. No parenchymal defects are identified. 2. Gallbladder activity is identified at 15 minutes post radiopharmaceutical administration. 3. Small intestinal tract is observed at 45 minutes following tracer injection. 4. Washout of the radiopharmaceutical by the hepatic parenchyma appears qualitatively normal. Cholecystokinin (0.02 ug/kg) was administered intravenously over a 30-minute period. The post CCK gallbladder ejection fraction calculated at 20 minutes following Cholecystokinin administration was noted to be < 5 % (normal greater than 35%). NM/Hepatobilliary Img w/Pharm Int IMPRESSION: 1. ABNORMAL 99m Tc Mebrofenin hepatobiliary imaging examination with Cholecystokinin. A. A gallbladder ejection fraction calculated to be less than 35% following the administration of Cholecystokinin is consistent with the presence of functional hepatobiliary disease (gallbladder and/or sphincter of Oddi dyskinesia) and/or organic hepatobiliary disease (chronic acalculous cholecystitis and/or cystic duct syndrome) in patients with intermediate to high pretest probabilities of hepatobiliary illness. (Tamanna Mayo et al, Journal of Nuclear Medicine 32:1695, 1991). Electronically Signed: Emmanuel Kruse DO at 7:58 EST Tel , Service support ,
== END ==
PROVIDERS: PCP Family Medicine Geriatric Medicine; Referring Provider Family Medicine Geriatric Medicine; Visit Provider Family Medicine Geriatric Medicine
DX: K80.20 Calculus of gallbladder without cholecystitis without obstruction (principal)
CPT/HCPCS: 76705; 78227; A9537; J2805

== ENCOUNTER → 2021-08-08 07:58 | Outpatient (CLI) | payer MEDICARE, OTHER, SELFPAY ==
--- NOTE | 2021-08-08 08:04 | MRI_ITS ---
STUDY: MRI LUMBAR SPINE WITHOUT CONTRAST REASON FOR EXAM: Female, 86 years old. LOW BACK PAIN TECHNIQUE: Standardized fat and water weighted pulse sequences were obtained in the sagittal and axial planes. COMPARISON: X-ray 07/12/2021 FINDINGS: T12-L1: Normal endplates. Normal disc height, hydration and morphology. Normal bilateral facet joints. Normal central canal and bilateral lateral recesses. Normal bilateral intervertebral neural foramina. Normal lumbar lordosis. Mild dextroscoliosis centered at L2/L3. Normal conus medullaris that terminates at the L2. L1-2: Mild broad disc protrusion produces mild frontal stenosis and mild bilateral neural foraminal stenosis. L2-3: Mild bilateral facet hypertrophy and ligament flavum hypertrophy. 2 mm retrolisthesis of L2 on L3 with a mild bilobed disc protrusion and left foraminal protrusion produces moderate spinal stenosis and mild bilateral neural foraminal stenosis. L3-4: Mild bilateral facet hypertrophy and ligament flavum hypertrophy. 2 mm retrolisthesis of L3 on L4 with a mild bilobed disc protrusion produces moderate spinal stenosis and moderate bilateral neural foraminal stenosis. L4-5: Mild bilateral facet hypertrophy and moderate ligament flavum hypertrophy. 2 mm retrolisthesis of L4 and L5 with a mild broad disc protrusion produces moderate spinal stenosis and moderate bilateral neural foraminal stenosis. L5-S1: Mild bilobed disc protrusion and right foraminal protrusion produces mild spinal stenosis and moderate right neural foraminal stenosis with abutment of the right L5 nerve root laterally. Normal visualized sacral ala. Normal visualized paraspinous soft tissue structures. MRI/Spine Lumbar (Routine) IMPRESSION: Mild dextroscoliosis with degenerative disc disease as described above. Electronically Signed: Emmanuel Raymond MD at 9:51 EST Tel , Service support ,
== END ==
PROVIDERS: PCP Family Medicine Geriatric Medicine; Referring Provider Family Medicine Geriatric Medicine; Visit Provider Family Medicine Geriatric Medicine
DX: M54.50 Low back pain, unspecified (principal)
CPT/HCPCS: 72148

== ENCOUNTER → 2021-08-26 10:22 | Outpatient (CLI) | payer MEDICARE, OTHER, SELFPAY ==
[2021-08-26 12:24] LABS: Absolute Lymphocyte Count 1.51 X10^3/uL (0.83-4.51); Absolute Neutrophil Count 8.7 X10^3/uL (2.0-7.7); Basophil# 0.07 X10^3/uL; Basophil% 0.6 % (0-1); Eosinophil# 0.66 X10^3/uL; Eosinophils% 5.6 % (0-5); Hematocrit 39.5 % (37-47); Hemoglobin 12.8 g/dL (12.0-15.0); Lymphocyte # 1.51 X10^3/ul (0.83-4.51); Lymphocyte % 12.8 % (19-41); Mean Corp Hgb Conc 32.4 g/dL (32-36); Mean Corpuscular Hgb 31.1 pg (27.0-32.0); Mean Corpuscular Volume 96.1 fL (81-99); Mean Platelet Vol. 11.8 fl (6.2-12.0); Monocyte# 0.84 X10^3/uL; Monocyte% 7.1 % (0-10); NRBC Flagged by Analyzer 0 % (0-5); Neutrophil # 8.65 X10^3/uL (2.7-7.7); Neutrophil % 73.3 % (47-70); Platelet Count 264 K/mm3 (150-450); RBC Distribution Width CV 13.9 % (11.6-14.6); RBC Distribution Width SD 48.9 fl (35.1-43.9); Red Blood Count 4.11 M/mm3 (4.2-5.4); White Blood Count 11.8 K/mm3 (4.4-11.0)
[2021-08-26 12:36] LABS: Vitamin D,25 Hydroxy 30.6 ng/mL
[2021-08-26 13:25] LABS: ALB/GLOB Ratio 0.9 RATIO (0.9-2.4); AST(SGOT) 15 U/L (15-37); Alanine Aminotransfer ALT/SGPT 23 U/L (13-56); Albumin, Serum 3.1 g/dL (3.2-5.0); Alkaline Phosphatase 119 U/L (45-117); Anion Gap 9 (5-15); BUN 26 mg/dL (7-18); BUN/Creat Ratio 18.3 RATIO (10-20); Calcium,Total 10.3 mg/dL (8.5-10.1); Chloride 101 mmol/L (98-107); Creatinine, Serum 1.42 mg/dL (0.55-1.02); EST Glomerular Filtration Rate 37 mL/min (>60); Est Glom Filt Rate - Afr Amer 45 mL/min (>60); Globulin 3.4 g/dL (2.2-4.2); Glucose 181 mg/dL (74-106); Potassium 3.4 mmol/L (3.5-5.1); Protein, Total 6.5 g/dL (6.4-8.2); Sodium Level 141 mmol/L (136-145); Thyroid Stim Hormone (TSH) 1.24 uIU/mL (0.358-3.74); Uric Acid 9.6 mg/dL (2.6-6.0)
== END ==
PROVIDERS: PCP Family Medicine Geriatric Medicine; Visit Provider Family Medicine Geriatric Medicine
DX: I10 Essential (primary) hypertension (principal); E55.9 Vitamin D deficiency, unspecified; M10.9 Gout, unspecified
CPT/HCPCS: 36415; 80053; 82306; 84443; 84550; 85025

== ENCOUNTER → 2021-09-06 08:20 | Outpatient (CLI) | payer MEDICARE, OTHER, SELFPAY ==
--- NOTE | 2021-09-06 08:22 | CT_ITS ---
STUDY: CT ABDOMEN AND PELVIS WITHOUT CONTRAST REASON FOR EXAM: Female, 86 years old. Abdominal pain RADIATION DOSAGE (If Supplied By Facility): CTDIvol = ( 19.44 ) mGy, DLP = ( 990.73 ) mGycm TECHNIQUE: Transaxial images were obtained from the dome of the diaphragm to the symphysis pubis without oral contrast, and without intravenous contrast. Sagittal and coronal images were reconstructed. Individualized dose optimization techniques were used for this CT. COMPARISON: Comparison is made with prior study dated 08/22/2014. FINDINGS: Mild increased markings at the lung bases suggests mild scarring. Coronary artery calcification. Normal liver. There are multiple gallstones. Normal spleen. Normal pancreas. Normal bilateral adrenal glands. Normal right kidney. Normal left kidney. There is a small hiatal hernia. Normal small intestine. There are multiple colonic diverticula consistent with diverticulosis. The appendix is visualized and appears normal. There is diffuse atherosclerotic calcification of the abdominal aorta and its major visceral branches, without a demonstrated aneurysm. Normal inferior vena cava. Normal retroperitoneum. Normal urinary bladder. There is absence of the uterus consistent with a prior hysterectomy. There is a small umbilical hernia containing fat. There are diffuse degenerative changes of the visualized lumbar spine. Straightening of the normal lumbar lordosis. CT/Abdomen/Pel W ORAL Cont Only IMPRESSION: Multiple gallstones. Diffuse sigmoid diverticulosis without evidence of diverticulitis at this time. Electronically Signed: Harry Contreras MD at 9:35 EST , Service support ,
== END ==
PROVIDERS: PCP Family Medicine Geriatric Medicine; Referring Provider Surgery; Visit Provider Surgery
DX: R10.9 Unspecified abdominal pain (principal)
CPT/HCPCS: 74176

== ENCOUNTER 2021-09-30 08:43 | Outpatient (CLI) | payer MEDICARE, OTHER, SELFPAY | END 2021-09-30 23:59 | disposition short-term general hospital (02) | PROVIDERS: PCP Family Medicine Geriatric Medicine; Referring Provider Family Medicine Geriatric Medicine; Visit Provider Family Medicine Geriatric Medicine | DX: R68.83 Chills (without fever) (principal) | CPT/HCPCS: 87635; 87804; 87807; C9803; U0003; U0005 ==

== ENCOUNTER 2021-11-15 17:30 | Emergency (ER) | payer MEDICARE, OTHER, SELFPAY ==
[2021-11-15] VITALS (8 sets, daily range): BP systolic 101–139; BP diastolic 51–80; PULSE 89–117; RESP 13–22; TEMP 36.9; O2SAT 93–98; BMI 43.7
--- NOTE | 2021-11-15 17:53 | EKG12_ITS ---
Test Reason : CP Blood Pressure : / mmHG Vent. Rate : 092 BPM Atrial Rate : 108 BPM P-R Int : 000 ms QRS Dur : 098 ms QT Int : 366 ms P-R-T Axes : 000 032 027 degrees QTc Int : 452 ms Atrial fibrillation with premature ventricular or aberrantly conducted complexes Abnormal ECG Confirmed by VERÓNICA ESTRADA, GABBY ([id number]), [employer] OWEN WILDER ([id number]) on 11/18/2021 12:11:42 PM Referred By: GLORIA PAGE Confirmed By:GABBY SANCHES MD
--- NOTE | 2021-11-15 18:00 | RAD_ITS ---
INDICATION: chest pain EXAMINATION/TECHNIQUE: X-RAY - XR Chest 1 View COMPARISON: 06/16/2019. FINDINGS: Chronic lung changes. No acute lung findings. Tortuous and calcified thoracic aorta. The heart is not enlarged. No pleural effusion or pneumothorax. Degenerative changes of the thoracic spine. RAD/Chest 1 View (Portable) IMPRESSION: No acute radiographic abnormalities. Chronic lung changes. Electronically Signed: Trip Dobson MD at 18:44 EST ,
[2021-11-15 18:01] LABS: Absolute Lymphocyte Count 1.78 X10^3/uL (0.83-4.51); Absolute Neutrophil Count 8.8 X10^3/uL (2.0-7.7); Basophil# 0.08 X10^3/uL; Basophil% 0.6 % (0-1); Eosinophils% 7.8 % (0-5); Hematocrit 39.3 % (37-47); Hemoglobin 12.9 g/dL (12.0-15.0); Lymphocyte # 1.78 X10^3/ul (0.83-4.51); Lymphocyte % 13.9 % (19-41); Mean Corp Hgb Conc 32.8 g/dL (32-36); Mean Corpuscular Hgb 32.1 pg (27.0-32.0); Mean Corpuscular Volume 97.8 fL (81-99); Mean Platelet Vol. 10.8 fl (6.2-12.0); Monocyte# 1.05 X10^3/uL; Monocyte% 8.2 % (0-10); NRBC Flagged by Analyzer 0 % (0-5); Neutrophil # 8.78 X10^3/uL (2.7-7.7); Platelet Count 265 K/mm3 (150-450); RBC Distribution Width SD 50.1 fl (35.1-43.9); Red Blood Count 4.02 M/mm3 (4.2-5.4); White Blood Count 12.8 K/mm3 (4.4-11.0)
[2021-11-15 18:07] LABS: International Normalized Ratio 1.8; Prothrombin Time (Protime)PT. 20.1 SECONDS (11.7-14.9)
--- NOTE | 2021-11-15 18:15 | ED.VIS.CHEST ---
HPI History of Present Illness Chief Complaint: Chest Pain Detail of Chief Complaint: Palpitations with a history of A. ni. Informant: patient Onset/Context/Timing Onset: Days Activity at onset: gradual Timing: Continuous Quality: Positive for Aching Current Severity: Mild Worsened By: Nothing Relieved By: Nothing Associated Symptoms: Positive for Dyspnea and Palpitations; Negative for Nausea, Vomiting, Diaphoresis, Cough, Fever, Lightheadedness and Acid Reflux Narrative Narrative: 86-year-old female history of A. fib on Coumadin said her last INR which was done last day or so was 2.1. States that she has had accelerated heart rate today as high as 141. She recently moved to [facility]. She also states that with the palpitations at times she has chest discomfort. She denies any hemoptysis. There is no pleuritic chest pain. Prior Similar Symptoms: Yes Recent Illness/Hospitalization: No CVD Risk Factors: Positive for Hypertension PE Risk Factors: Negative for Recent Travel/Surgery, Recent Immobilization, Prior DVT or PE, Cancer and OCP + Smoking + >/=35 TAD Risk Factors: Negative for Marfan's Syndrome [facility] Medical History Atherosclerotic heart disease of [place] coronary artery without angina pectoris Chest pain COPD (chronic obstructive pulmonary disease) DDD (degenerative disc disease), lumbar Dyspnea on exertion Essential hypertension Fatigue GERD (gastroesophageal reflux disease) Hyperlipidemia Hypertension Hypothyroid penitentiary use of drug ADAIR (obstructive sleep apnea) Palpitations Paroxysmal atrial fibrillation Paroxysmal tachycardia Pulmonary embolism Secondary pulmonary arterial hypertension Segmental and somatic dysfunction of lumbar region Segmental and somatic dysfunction of pelvic region Segmental and somatic dysfunction of thoracic region Syncope and collapse Thoracic aortic aneurysm VTE (venous thromboembolism) Home Medications budesonide-formoterol 2 puff INHALATION BID 11/24/13 [History Last Taken 09/13/18] ascorbic acid (vitamin C) 500 mg PO DAILY 05/12/17 [History Last Taken 09/13/18] tiotropium bromide 1 puff INHALATION DAILY 05/12/17 [History Last Taken 09/13/18] nitroglycerin 0.4 mg sublingual tablet 0.4 mg SUBLINGUAL Q5M PRN 12/10/17 [History Last Taken Unknown] acetaminophen 500 mg capsule 500 mg PO Q6H PRN 12/28/17 [History Last Taken Unknown] allopurinol 100 mg PO DAILYCM 09/13/18 [History Last Taken 09/13/18] cyanocobalamin (vitamin B-12) 1,000 mcg PO DAILY 09/13/18 [History Last Taken 09/12/18] hydrocodone-acetaminophen 1 tab PO BID 09/13/18 [History Last Taken 09/13/18] methenamine hippurate 1 gm PO BID 09/13/18 [History Last Taken 09/13/18] warfarin 2 mg PO DAILY 09/13/18 [History Last Taken 07/15/20] furosemide 40 mg tablet 80 mg PO BID tab 06/20/20 [History Last Taken Unknown] icosapent ethyl 1 gram capsule 2 g PO BID 06/20/20 [History Last Taken Unknown] potassium chloride 20 mEq tablet,extended release 40 meq PO TID tab 06/20/20 [History Last Taken Unknown] aspirin 81 mg tablet,delayed release 81 mg PO QDAY #30 tab 06/28/20 [Rx Last Taken 07/20/20] chlorthalidone 25 mg tablet 12.5 mg PO .COMPLEX tab 01/16/21 [History Last Taken Unknown] esomeprazole magnesium 40 mg PO DAILY 03/28/21 [History Last Taken Unknown] levothyroxine 88 mcg PO DAILY 03/28/21 [History Last Taken Unknown] mirabegron [Myrbetriq] 50 mg PO DAILY 03/28/21 [History Last Taken Unknown] amlodipine 5 mg tablet 5 mg PO DAILY #90 tab 05/20/21 [Rx Last Taken Unknown] isosorbide mononitrate 60 mg tablet,extended release 24 hr 60 mg PO DAILY #90 tab 05/20/21 [Rx Last Taken Unknown] metoprolol tartrate 50 mg tablet 50 mg PO BID #180 tab 05/20/21 [Rx Last Taken Unknown] enoxaparin 40 mg/0.4 mL subcutaneous syringe 40 mg SUBCUT DAILY #1.6 ml 08/30/21 [Rx Last Taken Unknown] Allergy/AdvReac Type Severity Reaction Status Date / Time ibuprofen Allergy Unknown Verified 11/15/21 17:40 chlorthalidone AdvReac Intermediate Really Verified 11/15/21 17:40 dizzy and lightheaded Family History Father Myocardial infarction hx black lung Mother CHF (congestive heart failure) Sister CAD (coronary artery disease) Hx CABG Myocardial infarction Diabetes CHF (congestive heart failure) Brother FH: ALS (amyotrophic lateral sclerosis) Brother pacemaker Surgical History History of appendectomy History of colonoscopy History of coronary artery stent placement (11/2013) History of dilation and curettage History of hysterectomy History of left heart catheterization (07/20/20) Social History Smoking Status: Never smoker alcohol intake: never substance use type: does not use diet: low salt caffeine: No what type of physical activity do you participate in: none seatbelt use: always do you feel safe at home: Yes ROS ROS ED ROS Narrative Palpitations. Chest discomfort. Review of Systems ROS Unobtainable: Denies due to encephalopathy Constitutional Constitutional ED: Denies fever(s) Eyes Eyes: Denies none ENT ENT ED: Denies ear pain Cardiovascular Cardiovascular: Reports as per HPI, chest pain, palpitations and racing heartbeat Respiratory/Chest Respiratory/Chest: Reports dyspnea Gastrointestinal Gastrointestinal: Reports diarrhea; Denies abdominal pain, nausea or vomiting Genitourinary Genitourinary ED: Denies dysuria Musculoskeletal Musculoskeletal: Denies myalgias Integumentary Denies rash Neurologic Neurologic: Denies headache(s) Psychiatric Psychiatric: Denies depression Endocrine Endocrinology: Denies polyuria Hematologic/Lymphatic Hematologic/Lymphatic: Denies easy bruising Allergic/Immunologic Allergic/Immunologic ED: Denies urticaria EXAM Physical Exam Narrative Exam Narrative: 86-year-old female no acute distress. Vital signs stable. Pulse ox 95% on room air no hypoxia. H EENT exam unremarkable. Neck nontender no JVD. Lungs clear to auscultation bilaterally. Heart irregularly irregular rate between 90 and 111. Consistent with A. fib. Abdomen soft nontender. Moving all 4 extremities. Calves nontender without edema or cords. Neurologically awake and alert with no focal motor deficits. Const Vital Signs: 11/15/21 17:36 11/15/21 17:40 11/15/21 17:53 Temperature 98.4 F Temperature Source Oral Pulse Rate 109 H Respiratory Rate 22 H Respiratory Effort Normal Blood Pressure 125/63 H Blood Pressure Mean 83 Pulse Ox 95 98 Oxygen Delivery Method Room Air Room Air 11/15/21 18:34 11/15/21 19:07 11/15/21 20:00 Temperature Temperature Source Pulse Rate 117 H 102 H 90 Respiratory Rate 15 13 17 Respiratory Effort Blood Pressure 139/80 H 137/66 H 101/70 Blood Pressure Mean 99 89 80 Pulse Ox 94 93 94 Oxygen Delivery Method Room Air Room Air Room Air 11/15/21 20:16 Temperature Temperature Source Pulse Rate 89 Respiratory Rate 13 Respiratory Effort Blood Pressure 108/57 L Blood Pressure Mean 74 Pulse Ox 94 Oxygen Delivery Method Room Air Positive well nourished, well developed and obese; Negative for cachectic, contractures or unkempt General Appearance ED: well developed and NAD; Negative for unkempt, cachectic, contractures or pallor Nutritional Appearance: obese; Negative for cachectic HEENT Reports moist mucous membranes normocephalic and atraumatic; Negative for trauma or tenderness Eyes PERRL and EOMs intact bilaterally General Eye ED: Negative for pale conjunctiva or scleral icterus Neck no lymphadenopathy, supple and no JVD General: Negative for tenderness Chest Wall inspection of chest normal and palpation of chest normal Chest: Negative for tenderness Resp normal respiratory effort and clear to auscultation bilaterally Effort and Inspection: respiratory distress Auscultation: Negative for rales, rhonchi or wheezes Cardio S1 normal heart sound, S2 normal heart sound and no murmurs; Negative for regular rate or regular rhythm Rate: tachycardic and other Other Details: A fibrillation with a rate of 90-111. ; Negative for bradycardia GI normal to inspection, nondistended, normoactive bowel sounds, soft to palpation, non-tender, non-distended and no masses; Negative for hepatosplenomegaly Auscultation: Negative for hyperactive bowel sounds Palpation: Negative for splenomegaly or mass Back/Spine no CVA tenderness General Back: Negative for CVA tenderness Extremity normal to inspection General Extremety ED: Negative for edema or tenderness General Extremity: Negative for edema Neuro oriented x3 Sensorium / Orientation: awake, alert, oriented to person, oriented to place and oriented to time Motor Exam: strength 5/5 throughout Psych mental status grossly normal Appearance: Negative for unkempt Mood & Affect: Negative for depressed Skin no rashes or lesions noted and no wounds General Skin Exam: Negative for jaundice or pallor MDM MDM MDM Narrative Medical decision making narrative: 86-year-old female known A. fib with palpitations. Also chest discomfort. Repeat exam patient is doing well at 10:25 PM. We went over test results. She will be given oral potassium replacement here. Potassium replacement at the extended care facility. She is comfortable being discharged. Lab Data Attestation: I reviewed the patient's lab results. Lab results narrative: CBC shows a white count 12.8 H&H 12.9 and 39. Normal platelets. Her INR is subtherapeutic at 1.8. Electrolytes show a gap of 5 BUN and creatinine of 27 and 1.4. Calcium is low at 2.8. Glucose 142. Troponin is 17. Labs: Laboratory Results - last 24 hr 11/15/21 11/15/21 11/15/21 17:45 17:45 17:45 WBC 12.8 H RBC 4.02 L Hgb 12.9 Hct 39.3 MCV 97.8 MCH 32.1 H MCHC 32.8 RDW Std Deviation 50.1 H RDW Coeff of Robbi 14.0 Plt Count 265 MPV 10.8 Immature Gran % (Auto) 0.500 Neut % (Auto) 69.0 Lymph % (Auto) 13.9 L Bacon % (Auto) 8.2 Eos % (Auto) 7.8 H Baso % (Auto) 0.6 Absolute Neuts (auto) 8.8 H Absolute Lymphs (auto) 1.78 Nucleated RBC % 0 PT 20.1 H INR 1.8 Sodium 141 Potassium 2.8 L Chloride 103 Carbon Dioxide 33.0 H Anion Gap 5 BUN 27 H Creatinine 1.43 H Estim Creat Clear Calc 24.39 Est GFR (MDRD) Af Amer 45 L Est GFR (MDRD) Non-Af 37 L BUN/Creatinine Ratio 18.9 Glucose 142 H Calcium 10.2 H Troponin I High Sens 17 Radiography Chest X-Ray - ED: 1 View, Read by ED Physician, Heart, Lungs, Mediastinum, Bony Structures, No Acute Disease and Chronic Changes Diagnostic Testing: Clinical Impression(s) from Imaging Studies Chest X-Ray 11/15/21 18:00 IMPRESSION: No acute radiographic abnormalities. Chronic lung changes. Electronically Signed: Trip Dobson MD at 18:44 EST , Chest x-ray, portable, single view interpreted myself shows chronic changes no acute process. Normal cardiac silhouette. Rhythm Strip Rhythm Strip: A-fib Rate: 92 Ectopy: PVC(s) EKG Initial EKG: Attestation: I personally reviewed and interpreted this EKG as follows: Interpretation: Atrial Fibrillation Comments: Atrial fibrillation rate of 92. Aberrantly conducted complexes. Prior EKG tracings: not available for review Discharge Plan Triage Chief Complaint: Chest Pain ED Provider: Lukasz Ortega Dx/Rx/DC Orders Clinical Impression: Acute hypokalemia, Paroxysmal atrial fibrillation, Heart palpitations Instructions: ED AFIB, ED Hypokalemia Prescriptions: No Action nitroglycerin [Nitrostat] 0.4 mg tablet, sublingual 0.4 mg SUBLINGUAL Q5M PRN (Reason: chest pain) RF: 0 acetaminophen 500 mg capsule 500 mg PO Q6H PRN (Reason: Headache) RF: 0 furosemide 40 mg tablet 80 mg PO BID RF: 0 Vascepa 1 gram capsule 2 g PO BID RF: 0 potassium chloride 20 mEq tablet extended release 40 meq PO TID RF: 0 enoxaparin [Lovenox] 40 mg/0.4 mL syringe 40 mg subcut DAILY Qty: 1.6 RF: 0 budesonide-formoterol 1 INHALER inhaler 2 puff INHALATION BID RF: 0 ascorbic acid (vitamin C) 500 MG tablet 500 mg PO DAILY RF: 0 tiotropium bromide 1 PUFF inhaler 1 puff INHALATION DAILY RF: 0 hydrocodone-acetaminophen 1 EACH tablet 1 tab PO BID RF: 0 warfarin 2.5 MG tablet 2 mg PO DAILY RF: 0 allopurinol 100 MG tablet 100 mg PO DAILYCM RF: 0 methenamine hippurate 1 GM tablet 1 gm PO BID RF: 0 cyanocobalamin (vitamin B-12) 1,000 MCG capsule 1,000 mcg PO DAILY RF: 0 levothyroxine 88 mcg tablet 88 mcg PO DAILY RF: 0 esomeprazole magnesium 40 mg capsule,delayed release(DR/EC) 40 mg PO DAILY RF: 0 Myrbetriq 50 mg tablet extended release 24 hr 50 mg PO DAILY RF: 0 aspirin [Adult Aspirin Regimen] 81 mg tablet,delayed release (DR/EC) 81 mg PO QDAY Qty: 30 RF: 0 chlorthalidone 25 mg tablet 12.5 mg PO .COMPLEX RF: 0 amlodipine 5 mg tablet 5 mg PO DAILY Qty: 90 RF: 3 isosorbide mononitrate 60 mg tablet extended release 24 hr 60 mg PO DAILY Qty: 90 RF: 3 metoprolol tartrate 50 mg tablet 50 mg PO BID Qty: 180 RF: 3 Primary Care Provider: Aditya Hope Chi Referrals: Aditya Hope Chi, MD [Primary Care Provider] - 3-5 Days Activity Restrictions/Additional Instructions: Continue your current medications. Your potassium is low. Make sure you are taking your potassium replacement medication. Your potassium should be rechecked within a week. Follow-up with your primary care physician. Return if worse. Disposition Disposition: Home, Self Care
[2021-11-15 18:17] LABS: Anion Gap 5 (5-15); BUN 27 mg/dL (7-18); BUN/Creat Ratio 18.9 RATIO (10-20); Calcium,Total 10.2 mg/dL (8.5-10.1); Chloride 103 mmol/L (98-107); Creatinine, Serum 1.43 mg/dL (0.55-1.02); EST Glomerular Filtration Rate 37 mL/min (>60); Est Glom Filt Rate - Afr Amer 45 mL/min (>60); Estimated Creatinine Clearance 24.39 ml/min; Glucose 142 mg/dL (74-106); Potassium 2.8 mmol/L (3.5-5.1); Sodium Level 141 mmol/L (136-145); Troponin-I HS 17 pg/mL (3.0-54.0)
[2021-11-15] MEDS: Potassium Chloride Oral Tablet 20 MEQ 60 MEQ PO (22:37)
== END 2021-11-15 23:40 | disposition home or self-care (01) ==
PROVIDERS: Emergency Provider Emergency Medicine; PCP Family Medicine Geriatric Medicine; Visit Provider Emergency Medicine
DX: I48.0 Paroxysmal atrial fibrillation (principal); J44.9 Chronic obstructive pulmonary disease, unspecified; I27.21 Secondary pulmonary arterial hypertension; I71.2 Thoracic aortic aneurysm, without rupture; I10 Essential (primary) hypertension; E87.6 Hypokalemia; R00.2 Palpitations; E78.5 Hyperlipidemia, unspecified; I25.10 Atherosclerotic heart disease of native coronary artery without angina pectoris; Z79.01 Long term (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 anticoagulants; Z79.899 Other long term (current) drug therapy; Z79.82 Long term (current) use of aspirin; M51.36 Other intervertebral disc degeneration, lumbar region; G47.33 Obstructive sleep apnea (adult) (pediatric); Z86.711 Personal history of pulmonary embolism; K21.9 Gastro-esophageal reflux disease without esophagitis; E03.9 Hypothyroidism, unspecified; Z95.5 Presence of coronary angioplasty implant and graft; E66.9 Obesity, unspecified
CPT/HCPCS: 71045; 80048; 84484; 85025; 85610; 93005; 99285; A4216

== ENCOUNTER 2021-11-20 16:20 | Outpatient (CLI) | payer MEDICARE, OTHER, SELFPAY ==
[2021-11-20 17:51] LABS: Anion Gap 6 (5-15); BUN 28 mg/dL (7-18); BUN/Creat Ratio 22.2 RATIO (10-20); Calcium,Total 10.2 mg/dL (8.5-10.1); Chloride 100 mmol/L (98-107); Creatinine, Serum 1.26 mg/dL (0.55-1.02); EST Glomerular Filtration Rate 43 mL/min (>60); Est Glom Filt Rate - Afr Amer 52 mL/min (>60); Glucose 141 mg/dL (74-106); Potassium 3.5 mmol/L (3.5-5.1); Sodium Level 138 mmol/L (136-145)
== END 2021-11-20 23:59 | disposition home or self-care (01) ==
LOC: POLAB3 16:21
PROVIDERS: PCP Family Medicine Geriatric Medicine; Visit Provider Family Medicine Geriatric Medicine
DX: I10 Essential (primary) hypertension (principal)
CPT/HCPCS: 36415; 80048

== ENCOUNTER 2021-11-26 11:05 | Outpatient (CLI) | payer MEDICARE, OTHER, SELFPAY ==
[2021-11-26 12:30] LABS: Absolute Lymphocyte Count 1.64 X10^3/uL (0.83-4.51); Absolute Neutrophil Count 7.9 X10^3/uL (2.0-7.7); Basophil# 0.06 X10^3/uL; Basophil% 0.5 % (0-1); Eosinophil# 0.94 X10^3/uL; Eosinophils% 8.3 % (0-5); Hematocrit 37.9 % (37-47); Hemoglobin 12.4 g/dL (12.0-15.0); Lymphocyte # 1.64 X10^3/ul (0.83-4.51); Lymphocyte % 14.5 % (19-41); Mean Corp Hgb Conc 32.7 g/dL (32-36); Mean Corpuscular Volume 97.7 fL (81-99); Mean Platelet Vol. 12.1 fl (6.2-12.0); Monocyte# 0.72 X10^3/uL; Monocyte% 6.4 % (0-10); NRBC Flagged by Analyzer 0 % (0-5); Neutrophil # 7.88 X10^3/uL (2.7-7.7); Neutrophil % 69.8 % (47-70); Platelet Count 233 K/mm3 (150-450); RBC Distribution Width CV 13.9 % (11.6-14.6); RBC Distribution Width SD 49.8 fl (35.1-43.9); Red Blood Count 3.88 M/mm3 (4.2-5.4); White Blood Count 11.3 K/mm3 (4.4-11.0)
[2021-11-26 12:41] LABS: Vitamin D,25 Hydroxy 31.4 ng/mL
[2021-11-26 12:57] LABS: ALB/GLOB Ratio 0.9 RATIO (0.9-2.4); AST(SGOT) 15 U/L (15-37); Alanine Aminotransfer ALT/SGPT 20 U/L (13-56); Albumin, Serum 3.1 g/dL (3.2-5.0); Alkaline Phosphatase 122 U/L (45-117); Anion Gap 8 (5-15); BUN 29 mg/dL (7-18); BUN/Creat Ratio 22.5 RATIO (10-20); Chloride 103 mmol/L (98-107); Creatinine, Serum 1.29 mg/dL (0.55-1.02); EST Glomerular Filtration Rate 42 mL/min (>60); Est Glom Filt Rate - Afr Amer 50 mL/min (>60); Globulin 3.3 g/dL (2.2-4.2); Glucose 183 mg/dL (74-106); Potassium 3.9 mmol/L (3.5-5.1); Protein, Total 6.4 g/dL (6.4-8.2); Sodium Level 139 mmol/L (136-145); Thyroid Stim Hormone (TSH) 1.29 uIU/mL (0.358-3.74); Uric Acid 8.8 mg/dL (2.6-6.0)
== END 2021-11-26 23:59 | disposition home or self-care (01) ==
LOC: POLAB3 11:07
PROVIDERS: PCP Family Medicine Geriatric Medicine; Visit Provider Family Medicine Geriatric Medicine
DX: I10 Essential (primary) hypertension (principal); E55.9 Vitamin D deficiency, unspecified; M10.9 Gout, unspecified
CPT/HCPCS: 36415; 80053; 82306; 84443; 84550; 85025

== ENCOUNTER 2021-12-14 13:06 | Emergency (ER) | payer MEDICARE, OTHER, SELFPAY ==
[2021-12-14 13:08] VITALS: BP 141/55; PULSE 72; RESP 16; TEMP 36.6; O2SAT 96; BMI 42.9
--- NOTE | 2021-12-14 14:44 | ED.VIS.LOWEX ---
HPI History of Present Illness Chief Complaint: Laceration Narrative Narrative: 86-year-old female presenting with a skin tear to the right distal tibia laterally. She states he is on Coumadin initially had a lot of bleeding. The bleeding has been controlled. She states this happened while she was walking and she stumbled into her walker creating a skin tear. She does not think she hurt herself more than that. States she is not very painful. Patient's last Coumadin check was yesterday and it was within normal limits. 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 ADAIR (obstructive sleep apnea) Palpitations Paroxysmal atrial fibrillation Paroxysmal tachycardia Pulmonary embolism Secondary pulmonary arterial hypertension Segmental and somatic dysfunction of lumbar region Segmental and somatic dysfunction of pelvic region Segmental and somatic dysfunction of thoracic region Syncope and collapse Thoracic aortic aneurysm VTE (venous thromboembolism) Home Medications budesonide-formoterol 2 puff INHALATION BID 11/24/13 [History Last Taken 09/13/18] ascorbic acid (vitamin C) 500 mg PO DAILY 05/12/17 [History Last Taken 09/13/18] tiotropium bromide 1 puff INHALATION DAILY 05/12/17 [History Last Taken 09/13/18] nitroglycerin 0.4 mg sublingual tablet 0.4 mg SUBLINGUAL Q5M PRN 12/10/17 [History Last Taken Unknown] acetaminophen 500 mg capsule 500 mg PO Q6H PRN 12/28/17 [History Last Taken Unknown] allopurinol 100 mg PO DAILYCM 09/13/18 [History Last Taken 09/13/18] cyanocobalamin (vitamin B-12) 1,000 mcg PO DAILY 09/13/18 [History Last Taken 09/12/18] hydrocodone-acetaminophen 1 tab PO BID 09/13/18 [History Last Taken 09/13/18] methenamine hippurate 1 gm PO BID 09/13/18 [History Last Taken 09/13/18] warfarin 2 mg PO DAILY 09/13/18 [History Last Taken 07/15/20] furosemide 40 mg tablet 80 mg PO BID tab 06/20/20 [History Last Taken Unknown] icosapent ethyl 1 gram capsule 2 g PO BID 06/20/20 [History Last Taken Unknown] potassium chloride 20 mEq tablet,extended release 40 meq PO TID tab 06/20/20 [History Last Taken Unknown] aspirin 81 mg tablet,delayed release 81 mg PO QDAY #30 tab 06/28/20 [Rx Last Taken 07/20/20] chlorthalidone 25 mg tablet 12.5 mg PO .COMPLEX tab 01/16/21 [History Last Taken Unknown] esomeprazole magnesium 40 mg PO DAILY 03/28/21 [History Last Taken Unknown] levothyroxine 88 mcg PO DAILY 03/28/21 [History Last Taken Unknown] mirabegron [Myrbetriq] 50 mg PO DAILY 03/28/21 [History Last Taken Unknown] amlodipine 5 mg tablet 5 mg PO DAILY #90 tab 05/20/21 [Rx Last Taken Unknown] isosorbide mononitrate 60 mg tablet,extended release 24 hr 60 mg PO DAILY #90 tab 05/20/21 [Rx Last Taken Unknown] metoprolol tartrate 50 mg tablet 50 mg PO BID #180 tab 05/20/21 [Rx Last Taken Unknown] enoxaparin 40 mg/0.4 mL subcutaneous syringe 40 mg SUBCUT DAILY #1.6 ml 08/30/21 [Rx Last Taken Unknown] Allergy/AdvReac Type Severity Reaction Status Date / Time ibuprofen Allergy Unknown Verified 12/14/21 13:14 chlorthalidone AdvReac Intermediate Really Verified 12/14/21 13:14 dizzy and lightheaded Family History Father Myocardial infarction hx black lung Mother CHF (congestive heart failure) Sister CAD (coronary artery disease) Hx CABG Myocardial infarction Diabetes CHF (congestive heart failure) Brother FH: ALS (amyotrophic lateral sclerosis) Brother pacemaker Surgical History History of appendectomy History of colonoscopy History of coronary artery stent placement (11/2013) History of dilation and curettage History of hysterectomy History of left heart catheterization (07/20/20) Social History Smoking Status: Never smoker alcohol intake: never substance use type: does not use diet: low salt caffeine: No what type of physical activity do you participate in: none seatbelt use: always do you feel safe at home: Yes ROS ROS ED Constitutional Constitutional ED: Denies fever(s) or sweats Eyes Eyes: Denies blurry vision or change in vision ENT ENT ED: Denies rhinorrhea or sore throat Cardiovascular Cardiovascular: Denies chest pain or palpitations Respiratory/Chest Respiratory/Chest: Denies cough or dyspnea Gastrointestinal Gastrointestinal: Denies abdominal pain or nausea Genitourinary Genitourinary ED: Denies dysuria or hematuria Musculoskeletal Musculoskeletal: Denies arthralgias or myalgias Integumentary Reports other Details: Skin tear right lower leg Neurologic Neurologic: Denies headache(s) Psychiatric Psychiatric: Denies anxiety or depression EXAM Physical Exam Const Vital Signs: 12/14/21 13:08 Temperature 97.9 F Temperature Source Temporal Pulse Rate 72 Respiratory Rate 16 Blood Pressure 141/55 H Blood Pressure Mean 83 Pulse Ox 96 Oxygen Delivery Method Room Air Positive well nourished General Appearance ED: NAD HEENT Reports moist mucous membranes normocephalic and atraumatic Eyes PERRL Resp normal respiratory effort Cardio regular rate and regular rhythm Neuro oriented x3 and CN's II-XII intact bilaterally Skin Skin Narrative: 3 cm triangular skin tear on the distal aspect of the right leg. No active bleeding. No bony tenderness. MDM MDM MDM Narrative Medical decision making narrative: Patient has a skin tear to the distal leg. Her skin is thin and likely would tear from trying to suture. I had the patient's wounds cleaned and a dressing will be placed over this approximate the skin tear. She will follow-up with her primary care to ensure resolution. She is given wound care instructions and return precautions. Impression: 1. Skin tear right leg 3 cm Lab Data Attestation: I reviewed the patient's lab results. Discharge Plan Triage Chief Complaint: Laceration ED Provider: Domo Cooper Dx/Rx/DC Orders Instructions: ED Skin Avulsion Prescriptions: No Action nitroglycerin [Nitrostat] 0.4 mg tablet, sublingual 0.4 mg SUBLINGUAL Q5M PRN (Reason: chest pain) RF: 0 acetaminophen 500 mg capsule 500 mg PO Q6H PRN (Reason: Headache) RF: 0 furosemide 40 mg tablet 80 mg PO BID RF: 0 Vascepa 1 gram capsule 2 g PO BID RF: 0 potassium chloride 20 mEq tablet extended release 40 meq PO TID RF: 0 enoxaparin [Lovenox] 40 mg/0.4 mL syringe 40 mg subcut DAILY Qty: 1.6 RF: 0 budesonide-formoterol 1 INHALER inhaler 2 puff INHALATION BID RF: 0 ascorbic acid (vitamin C) 500 MG tablet 500 mg PO DAILY RF: 0 tiotropium bromide 1 PUFF inhaler 1 puff INHALATION DAILY RF: 0 hydrocodone-acetaminophen 1 EACH tablet 1 tab PO BID RF: 0 warfarin 2.5 MG tablet 2 mg PO DAILY RF: 0 allopurinol 100 MG tablet 100 mg PO DAILYCM RF: 0 methenamine hippurate 1 GM tablet 1 gm PO BID RF: 0 cyanocobalamin (vitamin B-12) 1,000 MCG capsule 1,000 mcg PO DAILY RF: 0 levothyroxine 88 mcg tablet 88 mcg PO DAILY RF: 0 esomeprazole magnesium 40 mg capsule,delayed release(DR/EC) 40 mg PO DAILY RF: 0 Myrbetriq 50 mg tablet extended release 24 hr 50 mg PO DAILY RF: 0 aspirin [Adult Aspirin Regimen] 81 mg tablet,delayed release (DR/EC) 81 mg PO QDAY Qty: 30 RF: 0 chlorthalidone 25 mg tablet 12.5 mg PO .COMPLEX RF: 0 amlodipine 5 mg tablet 5 mg PO DAILY Qty: 90 RF: 3 isosorbide mononitrate 60 mg tablet extended release 24 hr 60 mg PO DAILY Qty: 90 RF: 3 metoprolol tartrate 50 mg tablet 50 mg PO BID Qty: 180 RF: 3 Primary Care Provider: Aditya Hope Chi Referrals: Aditya Hope Chi, MD [Primary Care Provider] - Disposition Disposition: Home, Self Care
[2021-12-14 15:23] VITALS: BP 122/82; PULSE 78
== END 2021-12-14 16:01 | disposition home or self-care (01) ==
PROVIDERS: Emergency Provider Student in an Organized Health Care Education/Training Program; PCP Family Medicine Geriatric Medicine; Visit Provider Student in an Organized Health Care Education/Training Program
DX: S81.811A Laceration without foreign body, right lower leg, initial encounter (principal); J44.9 Chronic obstructive pulmonary disease, unspecified; I27.21 Secondary pulmonary arterial hypertension; I71.2 Thoracic aortic aneurysm, without rupture; I48.0 Paroxysmal atrial fibrillation; E78.5 Hyperlipidemia, unspecified; I10 Essential (primary) hypertension; I25.10 Atherosclerotic heart disease of native coronary artery without angina pectoris; W26.8XXA Contact with other sharp object(s), not elsewhere classified, initial encounter; Y93.01 Activity, walking, marching and hiking; Y92.9 Unspecified place or not applicable; Z79.01 Long term (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 anticoagulants; K21.9 Gastro-esophageal reflux disease without esophagitis; Z86.718 Personal history of other venous thrombosis and embolism; G47.33 Obstructive sleep apnea (adult) (pediatric); E03.9 Hypothyroidism, unspecified; Z79.899 Other long term (current) drug therapy; Z79.82 Long term (current) use of aspirin; Z86.711 Personal history of pulmonary embolism; Z95.5 Presence of coronary angioplasty implant and graft
CPT/HCPCS: 99284

== ENCOUNTER 2021-12-15 09:12 | Inpatient (IN) | payer MEDICARE, OTHER, SELFPAY ==
[2021-12-15] VITALS (15 sets, daily range): BP systolic 107–155; BP diastolic 59–84; PULSE 67–108; RESP 16–21; TEMP 36.6–37.7; O2SAT 88–98; BMI 43.3; BMI 42.1
--- NOTE | 2021-12-15 09:44 | EDS_ITS ---
HPI History of Present Illness Chief Complaint: Shortness of Breath Informant: patient Onset/Context/Timing Onset: Yesterday Context: gradual Timing: Continuous Quality: Positive for Dyspnea on exertion Worsened by: Exertion and Lying flat Relieved by: Nothing Associated Symptoms cough, rhinorrhea, fever, subjective and yellow sputum; Negative for ear pain or sore throat Chest Pain: Positive for Continuous and Burning Narrative Narrative: Patient presents with shortness of breath that has been getting worse since last night. Patient was seen here yesterday for leg laceration. Patient states she had difficulty sleeping last night due to her breathing. Patient states her breathing is worse with any exertion and with laying flat. Patient states nothing seems to help with it. Patient admits to a cough with some yellow sputum. Patient admits to subjective fevers. Patient did not take her temperature. Patient admits to some rhinorrhea. Patient admits to some burning in her chest. PE Risk Factors: Negative for Recent surgery [facility] Medical History Atherosclerotic heart disease of [place] coronary artery without angina pectoris Chest pain COPD (chronic obstructive pulmonary disease) DDD (degenerative disc disease), lumbar Dyspnea on exertion Essential hypertension Fatigue GERD (gastroesophageal reflux disease) Hyperlipidemia Hypertension Hypothyroid penitentiary use of drug ADAIR (obstructive sleep apnea) Palpitations Paroxysmal atrial fibrillation Paroxysmal tachycardia Pulmonary embolism Secondary pulmonary arterial hypertension Segmental and somatic dysfunction of lumbar region Segmental and somatic dysfunction of pelvic region Segmental and somatic dysfunction of thoracic region Syncope and collapse Thoracic aortic aneurysm VTE (venous thromboembolism) Home Medications ascorbic acid (vitamin C) 500 mg PO DAILY 05/12/17 [History Last Taken 09/13/18] allopurinol 100 mg PO DAILYCM 09/13/18 [History Last Taken 09/13/18] cyanocobalamin (vitamin B-12) 1,000 mcg PO DAILY 09/13/18 [History Last Taken 09/12/18] hydrocodone-acetaminophen 1 tab PO DAILY PRN PRN 09/13/18 [History Last Taken 09/13/18] methenamine hippurate 1 gm PO BID 09/13/18 [History Last Taken 09/13/18] warfarin 2.5 mg PO QODAY 09/13/18 [History Last Taken 07/15/20] furosemide 40 mg tablet 80 mg PO BID tab 06/20/20 [History Last Taken Unknown] icosapent ethyl 1 gram capsule 2 g PO BID 06/20/20 [History Last Taken Unknown] potassium chloride 20 mEq tablet,extended release 40 meq PO Q6H PRN tab 06/20/20 [History Last Taken Unknown] aspirin 81 mg tablet,delayed release 81 mg PO QDAY #30 tab 06/28/20 [Rx Last Taken 07/20/20] chlorthalidone 25 mg tablet 12.5 mg PO .COMPLEX tab 01/16/21 [History Last Taken Unknown] esomeprazole magnesium 40 mg PO DAILY 03/28/21 [History Last Taken Unknown] levothyroxine 88 mcg PO DAILY 03/28/21 [History Last Taken Unknown] mirabegron [Myrbetriq] 50 mg PO DAILY 03/28/21 [History Last Taken Unknown] amlodipine 5 mg tablet 5 mg PO DAILY #90 tab 05/20/21 [Rx Last Taken Unknown] metoprolol tartrate 50 mg tablet 50 mg PO BID #180 tab 05/20/21 [Rx Last Taken Unknown] cyanocobalamin (vitamin B-12) [Vitamin B-12] 1,000 mcg PO DAILY 12/15/21 [History Last Taken Unknown] isosorbide dinitrate 60 mg PO DAILY 12/15/21 [History Last Taken Unknown] linaclotide [Linzess] 145 mcg PO DAILY PRN PRN 12/15/21 [History Last Taken Unknown] nitroglycerin 0.4 mg SUBLINGUAL PRN PRN 12/15/21 [History Last Taken Unknown] warfarin 2 mg PO QODAY 12/15/21 [History Last Taken Unknown] Allergy/AdvReac Type Severity Reaction Status Date / Time ibuprofen Allergy Unknown Verified 12/15/21 09:13 chlorthalidone AdvReac Intermediate Really Verified 12/15/21 09:13 dizzy and lightheaded Family History Father Myocardial infarction hx black lung Mother CHF (congestive heart failure) Sister CAD (coronary artery disease) Hx CABG Myocardial infarction Diabetes CHF (congestive heart failure) Brother FH: ALS (amyotrophic lateral sclerosis) Brother pacemaker Surgical History History of appendectomy History of colonoscopy History of coronary artery stent placement (11/2013) History of dilation and curettage History of hysterectomy History of left heart catheterization (07/20/20) Social History Smoking Status: Never smoker alcohol intake: never substance use type: does not use diet: low salt caffeine: No what type of physical activity do you participate in: none seatbelt use: always do you feel safe at home: Yes ROS ROS ED Constitutional Constitutional ED: Reports fever(s); Denies chills Eyes Eyes: Reports blurry vision; Denies diplopia ENT ENT ED: Reports rhinorrhea; Denies sore throat Cardiovascular Cardiovascular: Reports chest pain; Denies palpitations Respiratory/Chest Respiratory/Chest: Reports cough, dyspnea and sputum Gastrointestinal Gastrointestinal: Reports nausea and vomiting Genitourinary Genitourinary ED: Denies dysuria or hematuria Musculoskeletal Musculoskeletal: Reports back pain, myalgias and neck pain Integumentary Reports rash; Denies abscess Neurologic Neurologic: Denies headache(s) or weakness Allergic/Immunologic Allergic/Immunologic ED: Denies mouth swelling or urticaria EXAM Physical Exam Const Vital Signs: 12/15/21 09:13 12/15/21 09:19 12/15/21 09:20 Temperature 99.8 F H 99.8 F H Temperature Source Oral Oral Pulse Rate 108 H 104 H Respiratory Rate 19 H 19 H Respiratory Depth Shallow Respiratory Pattern Tachypnea Blood Pressure 150/84 H 150/84 H Blood Pressure Mean 106 106 Pulse Ox 88 95 Oxygen Delivery Method Room Air Nasal Cannula Oxygen Flow Rate (L/min) 2 12/15/21 09:53 12/15/21 10:05 12/15/21 11:21 Temperature 97.8 F Temperature Source Temporal Pulse Rate 102 H 103 H Respiratory Rate 20 H 16 Respiratory Depth Respiratory Pattern Normal Blood Pressure 151/67 H Blood Pressure Mean 95 Pulse Ox 93 96 Oxygen Delivery Method Nasal Cannula Room Air Oxygen Flow Rate (L/min) 2 12/15/21 12:15 Temperature 98.4 F Temperature Source Temporal Pulse Rate 67 Respiratory Rate 18 Respiratory Depth Respiratory Pattern Blood Pressure 107/77 Blood Pressure Mean 87 Pulse Ox 95 Oxygen Delivery Method Room Air Oxygen Flow Rate (L/min) Positive well nourished, well developed and obese General Appearance ED: well developed and NAD Nutritional Appearance: obese HEENT Reports moist mucous membranes Neck supple and no JVD Resp normal respiratory effort Auscultation: rhonchi throughout Cardio regular rate, regular rhythm and no murmurs GI normal to inspection, nondistended, normoactive bowel sounds, non-tender and non-distended Palpation: soft Extremity normal to inspection General Extremety ED: Negative for edema or tenderness General Extremity: Negative for edema Neuro oriented x3, CN's II-XII intact bilaterally and no sensory deficits noted Sensorium / Orientation: alert Motor Exam: strength 5/5 throughout Psych mental status grossly normal Skin no rashes or lesions noted MDM MDM MDM Narrative Medical decision making narrative: EKG was obtained. On my interpretation, it shows sinus tachycardia with a rate of 101. There is a right bundle branch block pattern noted. There are some nonspecific ST-T wave changes noted. NM interval was within normal limits. QRS interval was normal. QTc interval was 479. [place] was normal. CBC shows a mild leukocytosis of 12.5. Comprehensive metabolic profile was obtained. Creatinine was slightly elevated at 1.25. Potassium was low at 3.0. Initial high-sensitivity troponin was 965. BNP was only slightly elevated at 292.6. Urinalysis does not show any evidence of urinary tract infection. 2-hour repeat high-sensitivity troponin was elevated at 1586. Portable chest x-ray was obtained. There is 1 view. On my interpretation, there is left basilar atelectasis. Bony thorax is normal. There is no cardiomegaly. There is no widening of the mediastinum. Radiologist also interpreted the x-ray and agrees. Patient was given aspirin here. Case was discussed with the hospitalist. She will admit the patient to her service. Patient and family understood and were agreeable with the plan. All questions were answered. Lab Data Attestation: I reviewed the patient's lab results. Labs: Laboratory Results - last 24 hr 12/15/21 12/15/21 12/15/21 09:50 09:50 09:50 WBC 12.5 H RBC 4.08 L Hgb 13.3 Hct 39.5 MCV 96.8 MCH 32.6 H MCHC 33.7 RDW Std Deviation 49.6 H RDW Coeff of Robbi 13.9 Plt Count 237 MPV 11.4 Immature Gran % (Auto) 0.600 Neut % (Auto) 81.4 H Lymph % (Auto) 7.5 L Perkins % (Auto) 10.0 Eos % (Auto) 0.0 Baso % (Auto) 0.5 Absolute Neuts (auto) 10.2 H Absolute Lymphs (auto) 0.93 Nucleated RBC % 0 Sodium 139 Potassium 3.0 L Chloride 101 Carbon Dioxide 31.0 Anion Gap 7 BUN 25 H Creatinine 1.25 H Estim Creat Clear Calc 27.90 Est GFR (MDRD) Af Amer 52 L Est GFR (MDRD) Non-Af 43 L BUN/Creatinine Ratio 20.0 Glucose 160 H Calcium 10.1 Total Bilirubin 0.60 AST 16 ALT 16 Alkaline Phosphatase 112 Troponin I High Sens 965 H* B-Natriuretic Peptide 292.6 H Total Protein 6.6 Albumin 3.4 Globulin 3.2 Albumin/Globulin Ratio 1.1 Urine Color Urine Clarity Urine pH Ur Specific [place] Urine Protein Urine Glucose (UA) Urine Ketones Urine Occult Blood Urine Nitrite Urine Bilirubin Urine Urobilinogen Ur Leukocyte Esterase Urine RBC Urine WBC Ur Squamous Epith Cells Urine Bacteria Urine Mucus 12/15/21 12/15/21 11:25 12:00 WBC RBC Hgb Hct MCV MCH MCHC RDW Std Deviation RDW Coeff of Robbi Plt Count MPV Immature Gran % (Auto) Neut % (Auto) Lymph % (Auto) Perkins % (Auto) Eos % (Auto) Baso % (Auto) Absolute Neuts (auto) Absolute Lymphs (auto) Nucleated RBC % Sodium Potassium Chloride Carbon Dioxide Anion Gap BUN Creatinine Estim Creat Clear Calc Est GFR (MDRD) Af Amer Est GFR (MDRD) Non-Af BUN/Creatinine Ratio Glucose Calcium Total Bilirubin AST ALT Alkaline Phosphatase Troponin I High Sens 1586 H* B-Natriuretic Peptide Total Protein Albumin Globulin Albumin/Globulin Ratio Urine Color Yellow Urine Clarity Clear Urine pH 6.5 Ur Specific [place] 1.010 Urine Protein 15 H Urine Glucose (UA) Normal Urine Ketones Negative Urine Occult Blood Negative Urine Nitrite Negative Urine Bilirubin Negative Urine Urobilinogen Normal Ur Leukocyte Esterase Negative Urine RBC 0 SEEN Urine WBC 0 SEEN Ur Squamous Epith Cells 0 SEEN Urine Bacteria 0 SEEN Urine Mucus 0 SEEN Radiography Chest X-Ray - ED: 1 View, Read by ED Physician, Read by Radiologist and No Acute Disease Diagnostic Testing: Clinical Impression(s) from Imaging Studies Chest X-Ray 12/15/21 09:48 IMPRESSION: Left basilar infiltrate/atelectasis. Electronically Signed: Harsh Jhaveri DO at 12:29 EDT , Discharge Plan Triage Chief Complaint: Shortness of Breath ED Provider: Buddy Flannery Dx/Rx/DC Orders Clinical Impression: Non-STEMI (non-ST elevated myocardial infarction), Dyspnea Prescriptions: No Action furosemide 40 mg tablet 80 mg PO BID RF: 0 Vascepa 1 gram capsule 2 g PO BID RF: 0 potassium chloride 20 mEq tablet extended release 40 meq PO Q6H PRN RF: 0 ascorbic acid (vitamin C) 500 MG tablet 500 mg PO DAILY RF: 0 hydrocodone-acetaminophen 1 EACH tablet 1 tab PO DAILY PRN PRN (Reason: Back Pain) RF: 0 warfarin 2.5 MG tablet 2.5 mg PO QODAY RF: 0 allopurinol 100 MG tablet 100 mg PO DAILYCM RF: 0 methenamine hippurate 1 GM tablet 1 gm PO BID RF: 0 cyanocobalamin (vitamin B-12) 1,000 MCG capsule 1,000 mcg PO DAILY RF: 0 levothyroxine 88 mcg tablet 88 mcg PO DAILY RF: 0 esomeprazole magnesium 40 mg capsule,delayed release(DR/EC) 40 mg PO DAILY RF: 0 Myrbetriq 50 mg tablet extended release 24 hr 50 mg PO DAILY RF: 0 cyanocobalamin (vitamin B-12) [Vitamin B-12] 1,000 mcg Tablet 1,000 mcg PO DAILY RF: 0 isosorbide dinitrate 40 mg Tablet 60 mg PO DAILY RF: 0 Linzess 145 mcg capsule 145 mcg PO DAILY PRN PRN (Reason: Constipation) RF: 0 warfarin 2 mg Tablet 2 mg PO QODAY RF: 0 nitroglycerin 0.4 mg tablet, sublingual 0.4 mg sublingual PRN PRN (Reason: Chest Pain) RF: 0 aspirin [Adult Aspirin Regimen] 81 mg tablet,delayed release (DR/EC) 81 mg PO QDAY Qty: 30 RF: 0 chlorthalidone 25 mg tablet 12.5 mg PO .COMPLEX RF: 0 amlodipine 5 mg tablet 5 mg PO DAILY Qty: 90 RF: 3 metoprolol tartrate 50 mg tablet 50 mg PO BID Qty: 180 RF: 3 Primary Care Provider: Aditya Hope Chi Referrals: Aditya Hope Chi, MD [Primary Care Provider] - Disposition Disposition: Acute Care Hospital [facility] [place] [facility]
--- NOTE | 2021-12-15 09:48 | EKG12_ITS ---
Test Reason : Blood Pressure : / mmHG Vent. Rate : 101 BPM Atrial Rate : 101 BPM P-R Int : 172 ms QRS Dur : 112 ms QT Int : 370 ms P-R-T Axes : 079 045 002 degrees QTc Int : [address] & T wave abnormality, consider anterior ischemia Abnormal ECG Confirmed by VERÓNICA ESTRADA, GABBY ([id number]), scientific editor OWEN WILDER ([id number]) on 12/17/2021 10:35:54 AM Referred By: KRYSTA Confirmed By:GABBY SANCHES MD
--- NOTE | 2021-12-15 09:48 | RAD_ITS ---
STUDY: X-RAY CHEST REASON FOR EXAM: Female, 86 years old. Dyspnea TECHNIQUE: Frontal view COMPARISON: 11/15/2021 FINDINGS: The lungs are expanded. Mild left basilar infiltrate/atelectasis. Normal size heart. Normal mediastinum and dean. Normal visualized pulmonary arteries. Calcified aortic arch and descending thoracic aorta. Normal visualized thoracic spine. Normal visualized ribs, clavicles, and shoulders. There is no demonstrated abnormality of the visualized soft tissue structures of the upper abdomen. RAD/Chest 1 View (Portable) IMPRESSION: Left basilar infiltrate/atelectasis. Electronically Signed: Harsh Jhaveri DO at 12:29 EDT Reading Location ID and State: [facility] / [place] Tel [phone], Service support ,
[2021-12-15 10:01] LABS: Absolute Lymphocyte Count 0.93 X10^3/uL (0.83-4.51); Absolute Neutrophil Count 10.2 X10^3/uL (2.0-7.7); Basophil# 0.06 X10^3/uL; Basophil% 0.5 % (0-1); Hematocrit 39.5 % (37-47); Hemoglobin 13.3 g/dL (12.0-15.0); Lymphocyte # 0.93 X10^3/ul (0.83-4.51); Lymphocyte % 7.5 % (19-41); Mean Corp Hgb Conc 33.7 g/dL (32-36); Mean Corpuscular Hgb 32.6 pg (27.0-32.0); Mean Corpuscular Volume 96.8 fL (81-99); Mean Platelet Vol. 11.4 fl (6.2-12.0); Monocyte# 1.25 X10^3/uL; NRBC Flagged by Analyzer 0 % (0-5); Neutrophil # 10.17 X10^3/uL (2.7-7.7); Neutrophil % 81.4 % (47-70); Platelet Count 237 K/mm3 (150-450); RBC Distribution Width CV 13.9 % (11.6-14.6); RBC Distribution Width SD 49.6 fl (35.1-43.9); Red Blood Count 4.08 M/mm3 (4.2-5.4); White Blood Count 12.5 K/mm3 (4.4-11.0)
[2021-12-15] MEDS: Ipratropium/Albuterol Sulfate 3 ML AMPUL.NEB INHALATION ×2 (10:05→19:15)
[2021-12-15 10:22] LABS: BNP,B-Type NATRIURETIC PEPTIDE 292.6 pg/mL (0-100)
[2021-12-15 10:24] LABS: ALB/GLOB Ratio 1.1 RATIO (0.9-2.4); AST(SGOT) 16 U/L (15-37); Alanine Aminotransfer ALT/SGPT 16 U/L (13-56); Albumin, Serum 3.4 g/dL (3.2-5.0); Alkaline Phosphatase 112 U/L (45-117); Anion Gap 7 (5-15); BUN 25 mg/dL (7-18); Calcium,Total 10.1 mg/dL (8.5-10.1); Chloride 101 mmol/L (98-107); Creatinine, Serum 1.25 mg/dL (0.55-1.02); EST Glomerular Filtration Rate 43 mL/min (>60); Est Glom Filt Rate - Afr Amer 52 mL/min (>60); Globulin 3.2 g/dL (2.2-4.2); Glucose 160 mg/dL (74-106); Protein, Total 6.6 g/dL (6.4-8.2); Sodium Level 139 mmol/L (136-145); Troponin-I HS 965 pg/mL (3.0-54.0)
[2021-12-15] MEDS: Aspirin 81 MG TAB.CHEW 324 MG PO (10:55)
[2021-12-15] MEDS: Potassium Chloride Oral Tablet 20 MEQ 40 MEQ PO (10:56)
[2021-12-15] MEDS: Oseltamivir Phosphate 75 MG Capsule PO (10:56)
[2021-12-15 11:28] LABS: Bacteria 0 SEEN /hpf (None Seen); Mucous, Urine 0 SEEN /hpf (<or=2+); Red Blood Cells-Urine 0 SEEN /hpf (0-5); Squamous Epithelial Cells - UA 0 SEEN /hpf (5-10); White Blood Cells 0 SEEN /hpf (0-5)
[2021-12-15 11:52] LABS: Color, Urine Yellow (Yellow); Glucose, Dipstick Normal (Normal); Ketone-Dipstick Negative (Negative); Leukocyte Esterase-Dipstick Negative /ul (Negative); Nitrite-Dipstick Negative (Negative); Occult Blood-Urine Negative /ul (Negative); Protein-Dipstick 15 mg/dl (Negative); Urine Bilirubin Dipstick Negative (Negative); Urine Clarity Clear (Clear); Urine Urobilinogen Normal (Normal); Urine pH 6.5 (5.0 - 8.0)
--- NOTE | 2021-12-15 12:30 | ED.RN ---
troponin 1586 received from lab aware.
[2021-12-15 12:31] LABS: Troponin-I HS 1586 pg/mL (3.0-54.0)
--- NOTE | 2021-12-15 12:33 | HP.PCM.HOS_ITS ---
HPI - General General Date of Admission: 12/15/21 HPI Narrative PAULO MILLER, is a 86 F with an extensive PMH as outlined who was admitted via the ED on 12/15/2021 with a complaint of shortness of breath which started the night before admission. She was seen in the ED yesterday for a leg laceration and she had a dressing placed on it. She had some fevers and a cough productive of yellowish sputum. She denied nausea, vomiting or diarrhea. She did admit to some wheezing. She says she wears oxygen at night o/a of COPD. Review of systems was negative. Vitals in the ED were Bp of 107/77, SD of 67, RR of 18 and temp of 98.4F and she was saturating at 95% on room air. CBC showed Hb of 13.3, wbc of 12.5, platelets of 237. BMP showed sodium of 139 and potassium of 3.0. Cr was 1.25. Initial troponin was 965 and trended up to 1586. CXR showed left basilar infiltrate and atelectasis. Influenza screen was negative. She is being admitted to be managed for nonstemi and influenza infection. 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 ADAIR (obstructive sleep apnea) Palpitations Paroxysmal atrial fibrillation Paroxysmal tachycardia Pulmonary embolism Secondary pulmonary arterial hypertension Segmental and somatic dysfunction of lumbar region Segmental and somatic dysfunction of pelvic region Segmental and somatic dysfunction of thoracic region Syncope and collapse Thoracic aortic aneurysm VTE (venous thromboembolism) Home Medications ascorbic acid (vitamin C) 500 mg PO DAILY 05/12/17 [History Last Taken 09/13/18] allopurinol 100 mg PO DAILYCM 09/13/18 [History Last Taken 09/13/18] cyanocobalamin (vitamin B-12) 1,000 mcg PO DAILY 09/13/18 [History Last Taken 09/12/18] hydrocodone-acetaminophen 1 tab PO DAILY PRN PRN 09/13/18 [History Last Taken 09/13/18] methenamine hippurate 1 gm PO BID 09/13/18 [History Last Taken 09/13/18] warfarin 2.5 mg PO QODAY 09/13/18 [History Last Taken 07/15/20] furosemide 40 mg tablet 80 mg PO BID tab 06/20/20 [History Last Taken Unknown] icosapent ethyl 1 gram capsule 2 g PO BID 06/20/20 [History Last Taken Unknown] potassium chloride 20 mEq tablet,extended release 40 meq PO Q6H PRN tab 06/20/20 [History Last Taken Unknown] aspirin 81 mg tablet,delayed release 81 mg PO QDAY #30 tab 06/28/20 [Rx Last Taken 07/20/20] chlorthalidone 25 mg tablet 12.5 mg PO .COMPLEX tab 01/16/21 [History Last Taken Unknown] esomeprazole magnesium 40 mg PO DAILY 03/28/21 [History Last Taken Unknown] levothyroxine 88 mcg PO DAILY 03/28/21 [History Last Taken Unknown] mirabegron [Myrbetriq] 50 mg PO DAILY 03/28/21 [History Last Taken Unknown] amlodipine 5 mg tablet 5 mg PO DAILY #90 tab 05/20/21 [Rx Last Taken Unknown] metoprolol tartrate 50 mg tablet 50 mg PO BID #180 tab 05/20/21 [Rx Last Taken Unknown] cyanocobalamin (vitamin B-12) [Vitamin B-12] 1,000 mcg PO DAILY 12/15/21 [Histo ry Last Taken Unknown] isosorbide dinitrate 60 mg PO DAILY 12/15/21 [History Last Taken Unknown] linaclotide [Linzess] 145 mcg PO DAILY PRN PRN 12/15/21 [History Last Taken Unknown] nitroglycerin 0.4 mg SUBLINGUAL PRN PRN 12/15/21 [History Last Taken Unknown] warfarin 2 mg PO QODAY 12/15/21 [History Last Taken Unknown] Allergy/AdvReac Type Severity Reaction Status Date / Time ibuprofen Allergy Unknown Verified 12/15/21 09:13 chlorthalidone AdvReac Intermediate Really Verified 12/15/21 09:13 dizzy and lightheaded Family History Father Myocardial infarction hx black lung Mother CHF (congestive heart failure) Sister CAD (coronary artery disease) Hx CABG Myocardial infarction Diabetes CHF (congestive heart failure) Brother FH: ALS (amyotrophic lateral sclerosis) Brother pacemaker Surgical History History of appendectomy History of colonoscopy History of coronary artery stent placement (11/2013) History of dilation and curettage History of hysterectomy History of left heart catheterization (07/20/20) Social History Smoking Status: Never smoker alcohol intake: never substance use type: does not use diet: low salt caffeine: No what type of physical activity do you participate in: none seatbelt use: always do you feel safe at home: Yes ROS Constitutional Constitutional: Reports fatigue, fever(s), malaise and weakness; Denies chills Eyes Eyes: Denies change in vision ENT HEENT: Denies abnormal hearing, headache(s), nasal congestion or sore throat Cardiovascular Cardiovascular: Reports dyspnea on exertion and rapid heart rate; Denies chest pain, edema, lightheadedness, orthopnea, palpitations or paroxysmal nocturnal dyspnea Respiratory/Chest Respiratory/Chest: Reports cough, dyspnea, excessive phlegm production, productive cough, shortness of breath at rest, shortness of breath with exertion and wheezing; Denies hemoptysis Gastrointestinal Gastrointestinal: Denies constipation, nausea or vomiting Genitourinary Genitourinary: Reports dysuria; Denies burning urination Musculoskeletal Musculoskeletal: Denies joint pain Neurologic Neurologic: Denies confusion Psychiatric Psychiatric: Denies anxiety Endocrine Endocrinology: Denies change in body appearance Hematologic/Lymphatic Hematologic/Lymphatic: Denies anemia Vital Signs Vital Signs Vital Signs: 12/15/21 09:13 12/15/21 09:19 12/15/21 09:20 Temperature 99.8 F H 99.8 F H Temperature Source Oral Oral Pulse Rate 108 H 104 H Respiratory Rate 19 H 19 H Respiratory Depth Shallow Respiratory Pattern Tachypnea Blood Pressure 150/84 H 150/84 H Blood Pressure Mean 106 106 Pulse Ox 88 95 Oxygen Delivery Method Room Air Nasal Cannula Oxygen Flow Rate (L/min) 2 12/15/21 09:53 12/15/21 10:05 12/15/21 11:21 Temperature 97.8 F Temperature Source Temporal Pulse Rate 102 H 103 H Respiratory Rate 20 H 16 Respiratory Depth Respiratory Pattern Normal Blood Pressure 151/67 H Blood Pressure Mean 95 Pulse Ox 93 96 Oxygen Delivery Method Nasal Cannula Room Air Oxygen Flow Rate (L/min) 2 12/15/21 12:15 Temperature 98.4 F Temperature Source Temporal Pulse Rate 67 Respiratory Rate 18 Respiratory Depth Respiratory Pattern Blood Pressure 107/77 Blood Pressure Mean 87 Pulse Ox 95 Oxygen Delivery Method Room Air Oxygen Flow Rate (L/min) Weight Weight: 252 lb 10.396 oz Body Mass Index (BMI) 43.3 Physical Exam Const alert and oriented x3 Constitutional Narrative: in moderate distress due to excessive coughing General Appearance: cooperative HEENT normocephalic, head/scalp atraumatic, hearing grossly normal bilaterally and moist oral mucous membranes Eyes PERRL, EOMs intact bilaterally and conjunctivae normal Neck no lymphadenopathy and supple Resp no retractions and no use of accessory muscles Resp Narrative: diminished breath sounds bibasally, mild wheezing, no crackles. On room air Cardio regular rate, regular rhythm, S1 normal heart sound, S2 normal heart sound and no murmurs GI normal to inspection, nondistended, normoactive bowel sounds, soft to palpation, non-tender and non-distended Extremity normal to inspection, full ROM and no clubbing, cyanosis or edema Peripheral Pulses: Yes pulses 2+ throughout Skin no rashes or lesions noted Neuro oriented x3, CN's II-XII intact bilaterally and moves all extremities Sensorium / Orientation: awake and alert Psych affect normal Results Lab / Micro Data Result Diagrams: 12/15/21 09:50 12/15/21 09:50 Labs: Laboratory Results - last 24 hr 12/15/21 09:50: WBC 12.5 H, RBC 4.08 L, Hgb 13.3, Hct 39.5, MCV 96.8, MCH 32.6 H , MCHC 33.7, RDW Std Deviation 49.6 H, RDW Coeff of Robbi 13.9, Plt Count 237, MPV 11.4, Immature Gran % (Auto) 0.600, Neut % (Auto) 81.4 H, Lymph % (Auto) 7.5 L, [place] % (Auto) 10.0, Eos % (Auto) 0.0, Baso % (Auto) 0.5, Absolute Neuts (auto) 10.2 H, Absolute Lymphs (auto) 0.93, Nucleated RBC % 0 12/15/21 09:50: Sodium 139, Potassium 3.0 L, Chloride 101, Carbon Dioxide 31.0, Anion Gap 7, BUN 25 H, Creatinine 1.25 H, Estim Creat Clear Calc 27.90, Est GFR (MDRD) Af Amer 52 L, Est GFR (MDRD) Non-Af 43 L, BUN/Creatinine Ratio 20.0, Glucose 160 H, Calcium 10.1, Total Bilirubin 0.60, AST 16, ALT 16, Alkaline Phosphatase 112, Troponin I High Sens 965 H*, Total Protein 6.6, Albumin 3.4, Globulin 3.2, Albumin/Globulin Ratio 1.1 12/15/21 09:50: B-Natriuretic Peptide 292.6 H 12/15/21 11:25: Urine Color Yellow, Urine Clarity Clear, Urine pH 6.5, Ur Specific [place] 1.010, Urine Protein 15 H, Urine Glucose (UA) Normal, Urine Ketones Negative, Urine Occult Blood Negative, Urine Nitrite Negative, Urine Bilirubin Negative, Urine Urobilinogen Normal, Ur Leukocyte Esterase Negative, Urine RBC 0 SEEN, Urine WBC 0 SEEN, Ur Squamous Epith Cells 0 SEEN, Urine Bacteria 0 SEEN, Urine Mucus 0 SEEN 12/15/21 12:00: Troponin I High Sens 1586 H* Micro: Microbiology 12/15/21 09:52 Nasal Secretion SARS-CoV-2 & FLU Antigen (Rapid) - Final Influenzae A Radiology Impression Chest X-Ray 12/15/21 09:48 IMPRESSION: Left basilar infiltrate/atelectasis. Electronically Signed: Harsh Jhaveri DO at 12:29 EDT Reading Location ID and State: [address] [place] [address] Tel [phone], Service support , Assessment & Plan Assessment/Plan (1) Non-STEMI (non-ST elevated myocardial infarction): (2) Dyspnea: PLAN: #Nonstemi * initial troponin was in the 900s, and trended up into the 1500s * admit to PCU * start on therapeutic lovenox, as well as aspirin. give plavix * BNP was 292.6 * put on high intensity statin * consult cardiology * 2D echo * she had cardiac cath in 06/2020 which showed no signficant disease in left main artery, and patent stent in proximal LAD, and 60% stenosis at mid circumflex bifurcation; mid RCA subtotally occluded in the mid to distal segment feeding into a small posterior lateral branch with near total collateralization of the RCA system * on imdur * #Influenza infection * CXR showed left basilar infiltratre and atelectasis * tested positive for influenza * started on tamiflu; will continue tamiflu 75mg bid to complete a 10 day course * check sputum culture. * urine for strep and legionella to ensure she doesnt have a superimposed bacterial infection * will hold off on antibiotics for now. * breathing treatment with bronchodilators * titrate oxyen to maintain sats >90% * #Acute on chronic Heart failure with preserved EF * BNP is 292; she is morbidly obese so this may be lower than it should be * . On furosemide 80mg bid and chlorthalidone * diurese with IV lasix 40mg bid * monitor intake and output * fluid restriction to 1500cc daily * cardiology consulted * has known EF of 65% and stage 2 diastolic dysfunction from 2D echo in 2019. RVSP was 52mmhg * on metoprolol * 2D echo ordered * #Hypertension: on amlodipine and metoprolol. #Hyperlipidemia: on high intensity statin and icosapent #Afib: on metoprolol. on coumadin. INR is 1.6. Will therefore give a dose of therapeutic lovenox in setting of Nstemi Code status: * Patient counseled extensively about different types of CODE STATUS including full code, DNR CCA and DNR CCA. Initially agreeable to be full code but then told me she had a DNR status in the halfway. She told me to clarify from the halfway forms what her CODE STATUS was. I checked with the halfway forms and her CODE STATUS listed there is full code. * Will therefore list patient is full code for now * Total time in [id number] discussion: 17 minutes. Charges/Coding Visit Charges Inpatient E&M: 34797 Init Hosp L3 Procedures Hospitalists Procedures: 15031 Advncd Care Plan 30 Min
[2021-12-15 13:45] LABS: International Normalized Ratio 1.6; Prothrombin Time (Protime)PT. 18.6 SECONDS (11.7-14.9)
[2021-12-15 13:46] LABS: Partial Thromboplast Time 42.3 Seconds (24.1-36.2)
--- NOTE | 2021-12-15 15:16 | EKG12_ITS ---
Test Reason : CP Blood Pressure : / mmHG Vent. Rate : 090 BPM Atrial Rate : 090 BPM P-R Int : 160 ms QRS Dur : 092 ms QT Int : 372 ms P-R-T Axes : 082 030 033 degrees QTc Int : 455 ms Normal sinus rhythm Normal ECG When compared with ECG of 15-DEC-2021 10:31, MANUAL COMPARISON REQUIRED, DATA IS UNCONFIRMED Confirmed by VERÓNICA ESTRADA, GABBY ([id number]), material expeditor OWEN WILDER ([id number]) on 12/17/2021 11:12:51 AM Referred By: GRICELDA Confirmed By:GABBY SANCHES MD
[2021-12-15] MEDS: Enoxaparin 100 MG/ML Syringe SC (15:50)
[2021-12-15] MEDS: Clopidogrel Bisulfate 300 MG Tablet PO (15:51)
--- NOTE | 2021-12-15 16:22 | CON.PCM.CA_ITS ---
Assessment & Plan Assessment/Plan (1) Atherosclerotic heart disease of [place] coronary artery without angina pectoris: QUALIFIERS: [place] vs. transplanted heart: [place] heart Qualified Code(s): I25.10 - Atherosclerotic heart disease of [place] coronary artery w ithout angina pectoris (2) History of coronary artery stent placement: (3) Paroxysmal atrial fibrillation: (4) Pulmonary embolism: QUALIFIERS: Pulmonary embolism type: other Chronicity: unspecified Acute cor pulmonale presence: without acute cor pulmonale Qualified Code(s): I26.99 - Other pulmonary embolism without acute cor pulmonale (5) Secondary pulmonary arterial hypertension: (6) Essential hypertension: (7) Hyperlipidemia: QUALIFIERS: Hyperlipidemia type: pure hypercholesterolemia Qualified Code(s): E78.00 - Pure hypercholesterolemia, unspecified; E78.0 - Pure hypercholesterolemia (8) senior care current use of anticoagulant: (9) Dyspnea: (10) Non-STEMI (non-ST elevated myocardial infarction): PLAN: 86-year-old patient presented with progressive shortness of breath with difficulty of lying flat Which is worse for the last 2 days, stated with cough productive yellowish sputum. Cardiac consult requested as she had significantly elevated cardiac enzymes with elevated high sensitive troponin In the range of (965-1586). Patient also tested positive for influenza A. Cardiac care plan recommendations; 1. 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 Other medical problem include history of hypertension, hyperlipidemia, secondary pulmonary hypertension. Paroxysmal atrial fibrillation Patient has been on anticoagulation with warfarin with INR today is 1.6 she had a history of paroxysmal defibrillation and history of valve embolism. 2. We will hold warfarin and continue anticoagulation, echocardiogram in a.m. We will keep n.p.o. with the plan of left heart cath to assess patency of the LAD stent as well to evaluate progression of CAD involving the intermediate left circumflex artery. She has a clinical diagnosis of non-ST elevation IN with significant elevation of high sensitive troponin #Noted her serum potassium is low, to correct electrolytes including potassium and magnesium. 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 ADAIR (obstructive sleep apnea) Palpitations Paroxysmal atrial fibrillation Paroxysmal tachycardia Pulmonary embolism Secondary pulmonary arterial hypertension Segmental and somatic dysfunction of lumbar region Segmental and somatic dysfunction of pelvic region Segmental and somatic dysfunction of thoracic region Syncope and collapse Thoracic aortic aneurysm VTE (venous thromboembolism) Home Medications ascorbic acid (vitamin C) 500 mg PO DAILY 05/12/17 [History Last Taken 09/13/18] allopurinol 100 mg PO DAILYCM 09/13/18 [History Last Taken 09/13/18] cyanocobalamin (vitamin B-12) 1,000 mcg PO DAILY 09/13/18 [History Last Taken 09/12/18] hydrocodone-acetaminophen 1 tab PO DAILY PRN PRN 09/13/18 [History Last Taken 09/13/18] methenamine hippurate 1 gm PO BID 09/13/18 [History Last Taken 09/13/18] warfarin 2.5 mg PO QODAY 09/13/18 [History Last Taken 07/15/20] furosemide 40 mg tablet 80 mg PO BID tab 06/20/20 [History Last Taken Unknown] icosapent ethyl 1 gram capsule 2 g PO BID 06/20/20 [History Last Taken Unknown] potassium chloride 20 mEq tablet,extended release 40 meq PO Q6H PRN tab 06/20/20 [History Last Taken Unknown] aspirin 81 mg tablet,delayed release 81 mg PO QDAY #30 tab 06/28/20 [Rx Last T [place]ken 07/20/20] chlorthalidone 25 mg tablet 12.5 mg PO .COMPLEX tab 01/16/21 [History Last Taken Unknown] esomeprazole magnesium 40 mg PO DAILY 03/28/21 [History Last Taken Unknown] levothyroxine 88 mcg PO DAILY 03/28/21 [History Last Taken Unknown] mirabegron [Myrbetriq] 50 mg PO DAILY 03/28/21 [History Last Taken Unknown] amlodipine 5 mg tablet 5 mg PO DAILY #90 tab 05/20/21 [Rx Last Taken Unknown] metoprolol tartrate 50 mg tablet 50 mg PO BID #180 tab 05/20/21 [Rx Last Taken Unknown] cyanocobalamin (vitamin B-12) [Vitamin B-12] 1,000 mcg PO DAILY 12/15/21 [History Last Taken Unknown] isosorbide dinitrate 60 mg PO DAILY 12/15/21 [History Last Taken Unknown] linaclotide [Linzess] 145 mcg PO DAILY PRN PRN 12/15/21 [History Last Taken Unknown] nitroglycerin 0.4 mg SUBLINGUAL PRN PRN 12/15/21 [History Last Taken Unknown] warfarin 2 mg PO QODAY 12/15/21 [History Last Taken Unknown] Allergy/AdvReac Type Severity Reaction Status Date / Time ibuprofen Allergy Unknown Verified 12/15/21 09:13 chlorthalidone AdvReac Intermediate Really Verified 12/15/21 09:13 dizzy and lightheaded Family History Father Myocardial infarction hx black lung Mother CHF (congestive heart failure) Sister CAD (coronary artery disease) Hx CABG Myocardial infarction Diabetes CHF (congestive heart failure) Brother FH: ALS (amyotrophic lateral sclerosis) Brother pacemaker Surgical History History of appendectomy History of colonoscopy History of coronary artery stent placement (11/2013) History of dilation and curettage History of hysterectomy History of left heart catheterization (07/20/20) Social History Smoking Status: Never smoker alcohol intake: never substance use type: does not use diet: low salt caffeine: No what type of physical activity do you participate in: none seatbelt use: always do you feel safe at home: Yes Physical Exam Narrative Seen and evaluated in PCU and discussed with the nursing staff Complain of cough with shortness of breath. No active chest pain Review of telemetry normal sinus rhythm with heart rate of around 95 Limited physical exam patient had positive influenza A Cardiac exam S1-S2 regular Chest exam diminished air entry bilateral minimal. Risk Stratification Risk Stratification Applicable: Yes Age >/= 65: Yes >/= 3 CAD Risk Factors (HTN, HLD, DM, family hx of CAD, or current smoker): Yes Aspirin Use in the Past 7 Days: Yes Severe Angina (>/= episodes in 24 hours): No EKG ST Changes >/= 0.5mm: Yes Positive Cardiac Marker: Yes COOKIE Risk Stratification Score: 5 COOKIE % Risk: 25% Risk Objective Data Vital Signs: Vital Signs Temp Pulse Resp BP Pulse Ox 99.1 F 101 H 18 140/65 H 94 12/15/21 14:36 12/15/21 14:36 12/15/21 14:36 12/15/21 14:36 12/15/21 14:36 Oxygen Flow Rate (L/min) 2 Oxygen Delivery Method Nasal Cannula Weight: 245 lb 9.519 oz Body Mass Index (BMI) 42.1 Lab / Micro Data Result Diagrams: 12/15/21 09:50 12/15/21 09:50 Labs: Laboratory Results - last 24 hr 12/15/21 09:50: WBC 12.5 H, RBC 4.08 L, Hgb 13.3, Hct 39.5, MCV 96.8, MCH 32.6 H , MCHC 33.7, RDW Std Deviation 49.6 H, RDW Coeff of Robbi 13.9, Plt Count 237, MPV 11.4, Immature Gran % (Auto) 0.600, Neut % (Auto) 81.4 H, Lymph % (Auto) 7.5 L, [place] % (Auto) 10.0, Eos % (Auto) 0.0, Baso % (Auto) 0.5, Absolute Neuts (auto) 10.2 H, Absolute Lymphs (auto) 0.93, Nucleated RBC % 0 12/15/21 09:50: Sodium 139, Potassium 3.0 L, Chloride 101, Carbon Dioxide 31.0, Anion Gap 7, BUN 25 H, Creatinine 1.25 H, Estim Creat Clear Calc 27.90, Est GFR (MDRD) Af Amer 52 L, Est GFR (MDRD) Non-Af 43 L, BUN/Creatinine Ratio 20.0, Glucose 160 H, Calcium 10.1, Total Bilirubin 0.60, AST 16, ALT 16, Alkaline Phosphatase 112, Troponin I High Sens 965 H*, Total Protein 6.6, Albumin 3.4, Globulin 3.2, Albumin/Globulin Ratio 1.1 12/15/21 09:50: B-Natriuretic Peptide 292.6 H 12/15/21 11:25: Urine Color Yellow, Urine Clarity Clear, Urine pH 6.5, Ur Specific [place] 1.010, Urine Protein 15 H, Urine Glucose (UA) Normal, Urine Ketones Negative, Urine Occult Blood Negative, Urine Nitrite Negative, Urine Bilirubin Negative, Urine Urobilinogen Normal, Ur Leukocyte Esterase Negative, Urine RBC 0 SEEN, Urine WBC 0 SEEN, Ur Squamous Epith Cells 0 SEEN, Urine Bacteria 0 SEEN, Urine Mucus 0 SEEN 12/15/21 12:00: Troponin I High Sens 1586 H* 12/15/21 13:30: PT 18.6 H, INR 1.6, APTT 42.3 H Micro: Microbiology 12/15/21 09:52 Nasal Secretion SARS-CoV-2 & FLU Antigen (Rapid) - Final Influenzae A Cardiology Labs/Tests 12/15/21 09:50: WBC 12.5 H, RBC 4.08 L, Hgb 13.3, Hct 39.5, MCV 96.8, MCH 32.6 H , MCHC 33.7, Plt Count 237, MPV 11.4, Immature Gran % (Auto) 0.600, Neut % (Auto) 81.4 H, Lymph % (Auto) 7.5 L, [place] % (Auto) 10.0, Eos % (Auto) 0.0, Baso % (Auto) 0.5, Absolute Neuts (auto) 10.2 H, Nucleated RBC % 0 12/15/21 09:50: Sodium 139, Potassium 3.0 L, Chloride 101, Carbon Dioxide 31.0, Anion Gap 7, BUN 25 H, Creatinine 1.25 H, Est GFR (MDRD) Af Amer 52 L, Est GFR (MDRD) Non-Af 43 L, BUN/Creatinine Ratio 20.0, Glucose 160 H, Calcium 10.1, Total Bilirubin 0.60 12/15/21 09:50: B-Natriuretic Peptide 292.6 H 12/15/21 11:25: Urine Color Yellow, Urine Clarity Clear, Urine pH 6.5, Ur Specific [place] 1.010, Urine Protein 15 H, Urine Glucose (UA) Normal, Urine Ketones Negative, Urine Occult Blood Negative, Urine Nitrite Negative, Urine Bilirubin Negative, Urine Urobilinogen Normal, Ur Leukocyte Esterase Negative, Urine RBC 0 SEEN, Urine WBC 0 SEEN 12/15/21 13:30: PT 18.6 H, INR 1.6, APTT 42.3 H Rhythm: Normal sinus rhythm EKG normal sinus rhythm, right bundle branch block, ST-T change nonspecific: Radiography Diagnostic Testing: Radiology Impression Chest X-Ray 12/15/21 09:48 IMPRESSION: Left basilar infiltrate/atelectasis. Electronically Signed: Harsh Jhaveri DO at 12:29 EDT Reading Location ID and State: [facility] / [place] Tel [phone], Service support ,
[2021-12-15 16:23] LABS: Troponin-I HS 2110 pg/mL (3.0-54.0)
[2021-12-15] MEDS: Furosemide 40 MG/4 ML Vial IV (18:57)
[2021-12-15] MEDS: levoFLOXacin IV 500 MG/100 ML BAG 100 MG IV (19:45)
[2021-12-15] MEDS: Methenamine Hippurate 1 GM Tablet PO (21:34)
[2021-12-15] MEDS: Oseltamivir Phosphate 30 MG Capsule PO (21:34)
[2021-12-15] MEDS: Metoprolol Tartrate 50 MG Tablet PO (21:34)
[2021-12-16] VITALS (14 sets, daily range): BP systolic 130–135; BP diastolic 60–76; PULSE 78–100; RESP 16–20; TEMP 36.4–37; O2SAT 92–97
[2021-12-16 05:44] LABS: Absolute Lymphocyte Count 1.22 X10^3/uL (0.83-4.51); Absolute Neutrophil Count 3.1 X10^3/uL (2.0-7.7); Basophil# 0.03 X10^3/uL; Basophil% 0.5 % (0-1); Eosinophil# 0.02 X10^3/uL; Eosinophils% 0.4 % (0-5); Hematocrit 35.8 % (37-47); Hemoglobin 12.1 g/dL (12.0-15.0); Lymphocyte # 1.22 X10^3/ul (0.83-4.51); Lymphocyte % 21.7 % (19-41); Mean Corp Hgb Conc 33.8 g/dL (32-36); Mean Corpuscular Hgb 32.1 pg (27.0-32.0); Mean Platelet Vol. 11.1 fl (6.2-12.0); Monocyte# 1.23 X10^3/uL; Monocyte% 21.9 % (0-10); NRBC Flagged by Analyzer 0 % (0-5); Neutrophil % 55.1 % (47-70); Platelet Count 183 K/mm3 (150-450); RBC Distribution Width CV 13.9 % (11.6-14.6); RBC Distribution Width SD 48.7 fl (35.1-43.9); Red Blood Count 3.77 M/mm3 (4.2-5.4); White Blood Count 5.6 K/mm3 (4.4-11.0)
--- NOTE | 2021-12-16 05:55 | EKG12_ITS ---
Test Reason : PRE OP Blood Pressure : / mmHG Vent. Rate : 090 BPM Atrial Rate : 090 BPM P-R Int : 176 ms QRS Dur : 098 ms QT Int : 372 ms P-R-T Axes : 079 053 010 degrees QTc Int : 455 ms Sinus rhythm with occasional Premature ventricular complexes and Fusion complexes ST abnormality, possible digitalis effect Abnormal ECG When compared with ECG of 15-DEC-2021 15:30, MANUAL COMPARISON REQUIRED, DATA IS UNCONFIRMED Confirmed by VERÓNICA ESTRADA, GABBY ([id number]), medical transcription editor OWEN WILDER ([id number]) on 12/17/2021 11:20:24 AM Referred By: GRICELDA Confirmed By:GABBY SANCHES MD
--- NOTE | 2021-12-16 05:55 | ECHOCS_ITS ---
Reason For Study: Chest Pain Procedure This was a 2D Doppler, Color Flow transthoracic echocardiogram. The study was technically difficult. Contrast injection was performed. Exam performed portable in patient room. Left Ventricle Normal LV size. The estimated ejection fraction is 65 %. Unable to assess diastolic dysfunction. No regional wall motion abnormalities noted. Right Ventricle Normal RV size. Normal systolic function. Atria Normal left atrium. Normal right atrium. No doppler evidence for ASD. Mitral Valve There is no mitral valve stenosis. Trivial mitral valve insufficiency. Tricuspid Valve There is no tricuspid stenosis. Trivial tricuspid valve insufficiency. Pulmonary artery systolic pressure is 45-50 mmHg. Aortic Valve There is no aortic stenosis. No aortic valve insufficiency. Pulmonic Valve There is no pulmonic valvular stenosis. No pulmonic valve insufficiency. Great Vessels Normal aortic root. Pericardium/Pleural No pericardial effusion. Medication Diluted definity 2ml given slow IV push to enhance endocardial definition. MMode/2D Measurements & Calculations LVIDd: 4.2 cm IVSd: 1.4 cm LA dimension: 3.6 cm LVIDs: 2.6 cm LVPWd: 1.3 cm FS: 37.4 % LAV(MOD-bp): 44.4 ml LA A4 area: 19.5 cm2 RA A4 area: 17.0 cm2 LAV(MOD-bp) Indexed: 20.8 ml/m2 LAV(MOD-sp2): 37.1 ml LAV(MOD-sp4): 53.5 ml Time Measurements MV dec time: 0.23 sec Doppler Measurements & Calculations MV E max reji: 126.2 cm/sec Lat Peak E' Reji: 7.3 cm/sec Med Peak E' Reji: 6.6 cm/sec MV A max reji: 72.5 cm/sec E/E' lat: 17.3 E/E' med: 19.0 MV E/A: 1.7 MV V2 max: 129.0 cm/sec MV P1/2t max reji: 131.9 cm/sec Ao V2 max: 144.6 cm/sec MV max P.7 mmHg MV P1/2t: 83.4 msec Ao max P.4 mmHg MV V2 mean: 72.2 cm/sec MV dec slope: 463.4 cm/sec2 MV mean P.4 mmHg MV V2 VTI: 32.8 cm MVA(P1/2t): 2.6 cm2 LV V1 max: 112.8 cm/sec PA V2 max: 112.7 cm/sec TR max reji: 333.8 cm/sec LV V1 max P.1 mmHg TR max P.6 mmHg ECHO/Echo Complete W/ Contrast Interpretation Summary The estimated ejection fraction is 65 %. Unable to assess diastolic dysfunction. Trivial mitral valve insufficiency. Ordering Physician: Kayla Hewitt Referring Physician: Aditya Hope Chi Performed By: Marck Mcgarry RCS
[2021-12-16 06:04] LABS: International Normalized Ratio 1.6; Prothrombin Time (Protime)PT. 18.1 SECONDS (11.7-14.9)
[2021-12-16 06:47] LABS: Anion Gap 5 (5-15); BUN 21 mg/dL (7-18); BUN/Creat Ratio 22.5 RATIO (10-20); Calcium,Total 9.6 mg/dL (8.5-10.1); Chloride 101 mmol/L (98-107); Creatinine, Serum 0.94 mg/dL (0.55-1.02); EST Glomerular Filtration Rate 60 mL/min (>60); Est Glom Filt Rate - Afr Amer 73 mL/min (>60); Glucose 91 mg/dL (74-106); Potassium 2.7 mmol/L (3.5-5.1); Sodium Level 138 mmol/L (136-145)
[2021-12-16] MEDS: Metoprolol Tartrate 50 MG Tablet PO ×2 (07:00→21:37)
[2021-12-16] MEDS: Aspirin E.C. 81 MG Tablet PO ×2 (07:00)
[2021-12-16] MEDS: Levothyroxine 88 MCG Tablet PO (07:00)
[2021-12-16 07:12] LABS: Magnesium 1.8 mg/dL (1.6-2.6); Phosphorus 2.7 mg/dL (2.5-4.9)
[2021-12-16] MEDS: Ipratropium/Albuterol Sulfate 3 ML AMPUL.NEB INHALATION ×2 (07:29→19:13)
[2021-12-16] MEDS: Potassium Chloride 10mEq/100mL 10 MEQ/100 ML IV.SOLN. 100 MEQ IV BOLUS ×2 (08:29→10:09)
[2021-12-16] MEDS: Oseltamivir Phosphate 30 MG Capsule PO ×2 (09:31→21:37)
[2021-12-16] MEDS: Ascorbic Acid 500 MG Tablet PO (09:31)
[2021-12-16] MEDS: Allopurinol 100 MG Tablet PO (09:31)
[2021-12-16] MEDS: Cyanocobalamin 500 MCG Tablet 1000 MCG PO (09:31)
[2021-12-16] MEDS: amLODIPine 5 MG Tablet PO (09:31)
[2021-12-16] MEDS: Chlorthalidone 50 MG Tablet 12.5 MG PO (09:31)
[2021-12-16] MEDS: Methenamine Hippurate 1 GM Tablet PO ×2 (09:31→21:37)
[2021-12-16] MEDS: Acetaminophen 325 MG Tablet 650 MG PO (09:32)
[2021-12-16] MEDS: Mirabegron 50 MG TAB.ER.24H PO (09:32)
[2021-12-16] MEDS: Furosemide 40 MG/4 ML Vial IV ×2 (09:33→18:43)
[2021-12-16] MEDS: 0.9% Saline Lock 10 ML Syringe IV ×2 (09:33→18:43)
[2021-12-16] MEDS: ICOSAPENT ETHYL 1 GM CAPSULE 2 GM PO ×2 (09:33→17:07)
[2021-12-16] MEDS: Isosorbide Mononitrate 60 MG Tablet PO (11:07)
--- NOTE | 2021-12-16 11:46 | CASEMGMT ---
Addendum entered by Billie Stacy 12/16/21 11:58: ANNMARIE did talk with patient and her plan is to return to [facility] at d/c. Billie JAMES Original Note: Patient is from [facility]. ANNMARIE faxed updates to [facility]. SW will check with patient to make sure her plan is to return to [facility]. Billie JAMES
[2021-12-16] MEDS: Potassium Chloride 10mEq/100mL 10 MEQ/100 ML IV.SOLN. 75 MEQ IV BOLUS ×2 (11:48→13:04)
--- NOTE | 2021-12-16 15:05 | WOUNDNOTE ---
wound photo: right lower leg
--- NOTE | 2021-12-16 16:19 | PN.HOSP_ITS ---
Subjective Subjective Patient states she feels very fatigued and somewhat short of breath. She denied ever having any chest pain. No significant complaints at this time other than she coughed a significant amount last evening and did not sleep well. It seems that her coughing has resolved at this time. Objective Data Objective Data Vital Signs: Vital Signs Temp Pulse Resp BP Pulse Ox 98.6 F 84 16 131/61 H 93 12/16/21 11:49 12/16/21 14:10 12/16/21 11:49 12/16/21 11:49 12/16/21 11:49 Oxygen Flow Rate (L/min) 2 Oxygen Delivery Method Room Air Weight: 111.4 kg Body Mass Index (BMI) 42.1 Intake & Output: Intake and Output for Last 24 Hours 12/14/21 12/15/21 12/16/21 23:59 23:59 23:59 Intake Total 220 / 220 520 / 520 Output Total 1500 / 1500 Balance 220 / -680 -980 / -980 Lab / Micro Data Result Diagrams: 12/16/21 05:24 12/16/21 05:24 Labs: Laboratory Results - last 24 hr 12/15/21 15:40: Troponin I High Sens 2110 H* 12/16/21 05:24: WBC 5.6, RBC 3.77 L, Hgb 12.1, Hct 35.8 L, MCV 95.0, MCH 32.1 H, MCHC 33.8, RDW Std Deviation 48.7 H, RDW Coeff of Robbi 13.9, Plt Count 183, MPV 11.1, Immature Gran % (Auto) 0.400, Neut % (Auto) 55.1, Lymph % (Auto) 21.7, [place] % (Auto) 21.9 H, Eos % (Auto) 0.4, Baso % (Auto) 0.5, Absolute Neuts (auto) 3.1, Absolute Lymphs (auto) 1.22, Nucleated RBC % 0 12/16/21 05:24: Sodium 138, Potassium 2.7 L*, Chloride 101, Carbon Dioxide 32.0, Anion Gap 5, BUN 21 H, Creatinine 0.94, Estim Creat Clear Calc 37.10, Est GFR (MDRD) Af Amer 73, Est GFR (MDRD) Non-Af 60, BUN/Creatinine Ratio 22.5 H, Glucose 91, Calcium 9.6 12/16/21 05:24: PT 18.1 H, INR 1.6 12/16/21 05:24: Phosphorus 2.7, Magnesium 1.8 Micro: Microbiology 12/16/21 09:35 Sputum, Expectorated/Coughed Gram Stain - Final 12/15/21 09:52 Nasal Secretion SARS-CoV-2 & FLU Antigen (Rapid) - Final Influenzae A Radiography Diagnostic Testing: Radiology Impression Echocardiogram 12/16/21 05:55 Interpretation Summary The estimated ejection fraction is 65 %. Unable to assess diastolic dysfunction. Trivial mitral valve insufficiency. Ordering Physician: Kayla Hewitt Referring Physician: Aditya Hope Chi Performed By: Marck Mcgarry RCS Physical Exam Const alert, oriented x3 and no apparent distress Constitutional Narrative: Elderly white female lying in bed, patient was sleeping upon my arrival however awaken easily, appears comfortable nontoxic Exam Limitations: no limitations Nutritional Appearance: morbidly obese HEENT head/scalp atraumatic, moist oral mucous membranes and oropharynx normal; Negative for dentition normal HEENT Narrative: Mallampati is 3, no thrush Head and Scalp: normocephalic Resp normal respiratory effort, no retractions, no use of accessory muscles and No clear to auscultation bilaterally Resp Narrative: Few fine scattered crackles but otherwise unremarkable, no signs of respiratory distress or tachypnea Auscultation: crackles; Negative for rales, rhonchi or wheezes Cardio regular rate, regular rhythm, S1 normal heart sound, S2 normal heart sound, no murmurs, no rub, no gallops, no clicks and no JVD GI normal to inspection, nondistended, normoactive bowel sounds, soft to palpation, non-tender and non-distended; Negative for hepatosplenomegaly Extremity no clubbing, cyanosis or edema Extremity Narrative: Right lower extremity dressing in place Peripheral Pulses: Yes pulses 2+ throughout Skin skin turgor normal, no jaundice, no petechiae and no mottling Skin Narrative: Wound right lower extremity secondary to fall-reviewed with wound nurse and it appears to be superficial and healing well with no need for any further intervention other than dressings Neuro oriented x3, CN's II-XII intact bilaterally, moves all extremities and no focal motor deficits Neuro Narrative: Significant generalized weakness however no focal deficit Sensorium / Orientation: awake and alert Speech: speech normal Psych affect normal Assessment & Plan Assessment/Plan (1) Non-STEMI (non-ST elevated myocardial infarction): (2) Hypokalemia: (3) Influenza A: PLAN: NSTEMI -Cardiac enzymes cycled and increased from [id number] -Patient is asymptomatic with regards to any chest pain -Is having some shortness of breath however she also has influenza A -Echocardiogram performed and shows no wall motion abnormality -It was documented that she would be going for cardiac catheterization however this was stopped today -Unclear if this still remains a plan for the future -Continue aspirin/metoprolol/Imdur -Patient is not on a statin--> initiate -Check lipid profile -Check hemoglobin A1c -Await further cardiology input Hypokalemia -Potassium replacement ordered -Repeat lab in a.m. -Magnesium was within normal limits Influenza A infection -Patient briefly required 2 L nasal cannula early this morning however at this has been weaned to room air and oxygen saturations are 93% -Continue Tamiflu day 2 of 5 -Strep pneumo and Legionella antigens are negative -Continue pulmonary toilet -We will likely need therapy intervention and possible placement given the debility that is likely resultant from her influenza infection Acute on chronic diastolic heart failure -Suspect this may related to a stiff ventricle with NSTEMI -BNP was mildly elevated at 292 -Continue Lasix as ordered -Continue chlorthalidone -Any fluid restrictions -Strict I's and O's -Echo shows preserved ejection fraction Hypertension -Continue home medications other than chlorthalidone why patient is receiving Lasix -Monitor blood pressure GERD -Continue PPI History of gout -Continue allopurinol -Monitor closely given diuresis CAD -History of stent placement -Continue home aspirin Hypothyroidism -Continue home levothyroxine DVT prophylaxis -Start subcu Lovenox 40 mg twice daily CODE STATUS -Full code Charges/Coding Visit Charges Inpatient E&M: 78622 Subs Hosp L2
--- NOTE | 2021-12-16 16:30 | PN.CARD_ITS ---
Subjective Subjective Patient has fatigue, shortness of breath and malaise. No chest pain. She has tested positive for influenza A. Troponin went up but she has no anginal symptoms. Objective Data Vital Signs: Vital Signs Temp Pulse Resp BP Pulse Ox 98.6 F 84 16 131/61 H 93 12/16/21 11:49 12/16/21 14:10 12/16/21 11:49 12/16/21 11:49 12/16/21 11:49 Oxygen Flow Rate (L/min) 2 Oxygen Delivery Method Room Air Weight: 245 lb 9.519 oz Body Mass Index (BMI) 42.1 Intake & Output: Intake and Output for Last 24 Hours 12/14/21 12/15/21 12/16/21 23:59 23:59 23:59 Intake Total 220 / 220 520 / 520 Output Total 1500 / 1500 Balance 220 / -680 -980 / -980 Lab / Micro Data Result Diagrams: 12/16/21 05:24 12/16/21 05:24 Labs: Laboratory Results - last 24 hr 12/16/21 05:24: WBC 5.6, RBC 3.77 L, Hgb 12.1, Hct 35.8 L, MCV 95.0, MCH 32.1 H, MCHC 33.8, RDW Std Deviation 48.7 H, RDW Coeff of Robbi 13.9, Plt Count 183, MPV 11.1, Immature Gran % (Auto) 0.400, Neut % (Auto) 55.1, Lymph % (Auto) 21.7, [place] % (Auto) 21.9 H, Eos % (Auto) 0.4, Baso % (Auto) 0.5, Absolute Neuts (auto) 3.1, Absolute Lymphs (auto) 1.22, Nucleated RBC % 0 12/16/21 05:24: Sodium 138, Potassium 2.7 L*, Chloride 101, Carbon Dioxide 32.0, Anion Gap 5, BUN 21 H, Creatinine 0.94, Estim Creat Clear Calc 37.10, Est GFR (MDRD) Af Amer 73, Est GFR (MDRD) Non-Af 60, BUN/Creatinine Ratio 22.5 H, Glucose 91, Calcium 9.6 12/16/21 05:24: PT 18.1 H, INR 1.6 12/16/21 05:24: Phosphorus 2.7, Magnesium 1.8 Micro: Microbiology 12/16/21 09:35 Sputum, Expectorated/Coughed Gram Stain - Final Cardiology Labs/Tests 12/16/21 05:24: WBC 5.6, RBC 3.77 L, Hgb 12.1, Hct 35.8 L, MCV 95.0, MCH 32.1 H, MCHC 33.8, Plt Count 183, MPV 11.1, Immature Gran % (Auto) 0.400, Neut % (Auto) 55.1, Lymph % (Auto) 21.7, [place] % (Auto) 21.9 H, Eos % (Auto) 0.4, Baso % (Auto) 0.5, Absolute Neuts (auto) 3.1, Nucleated RBC % 0 12/16/21 05:24: Sodium 138, Potassium 2.7 L*, Chloride 101, Carbon Dioxide 32.0, Anion Gap 5, BUN 21 H, Creatinine 0.94, Est GFR (MDRD) Af Amer 73, Est GFR (MDRD) Non-Af 60, BUN/Creatinine Ratio 22.5 H, Glucose 91, Calcium 9.6 12/16/21 05:24: PT 18.1 H, INR 1.6 12/16/21 05:24: Phosphorus 2.7, Magnesium 1.8 Rhythm: EKG: ECHO: Stress Test: Cardiac Cath: PCI: CT Surgery: Holter monitor: EPS: PPM: CXR: Chest CT Scan: Radiography Diagnostic Testing: Radiology Impression Echocardiogram 12/16/21 05:55 Interpretation Summary The estimated ejection fraction is 65 %. Unable to assess diastolic dysfunction. Trivial mitral valve insufficiency. Ordering Physician: Kayla Hewitt Referring Physician: Aditya Hope Chi Performed By: Marck Mcgarry RCS Physical Exam Const alert and oriented x3 Orientation / Consciousness: awake HEENT normocephalic Eyes no scleral icterus Assessment & Plan Assessment/Plan (1) Non-STEMI (non-ST elevated myocardial infarction): PLAN: Patient does not have any chest pain. Enzymes did go up and could be type II related to her influenza. At this time I agree with keeping the patient on aspirin and adding statin. She does not require coronary angiography this admission unless her clinical situation changes. She can follow-up with us as an outpatient and at that time we could either do a stress test or schedule her for coronary angiogram based on her clinical status. (2) History of coronary artery stent placement: Charges/Coding Visit Charges Inpatient E&M: 84431 Subs Hosp L2
[2021-12-16] MEDS: Benzonatate 100 MG Capsule PO (17:07)
[2021-12-16] MEDS: levoFLOXacin IV 250 MG/50 ML BAG 50 MG IV (21:32)
[2021-12-16] MEDS: Atorvastatin Calcium 80 MG Tablet PO (21:37)
[2021-12-17] VITALS (12 sets, daily range): BP systolic 120–136; BP diastolic 55–75; PULSE 73–96; RESP 18–20; TEMP 36.1–36.7; O2SAT 88–96
[2021-12-17] MEDS: Ipratropium/Albuterol Sulfate 3 ML AMPUL.NEB INHALATION ×3 (00:42→13:32)
[2021-12-17 06:42] LABS: Absolute Neutrophil Count 3.2 X10^3/uL (2.0-7.7); Basophil# 0.04 X10^3/uL; Basophil% 0.7 % (0-1); Eosinophil# 0.25 X10^3/uL; Eosinophils% 4.4 % (0-5); Hematocrit 35.7 % (37-47); Lymphocyte % 22.6 % (19-41); Mean Corp Hgb Conc 33.6 g/dL (32-36); Mean Corpuscular Hgb 31.8 pg (27.0-32.0); Mean Corpuscular Volume 94.7 fL (81-99); Mean Platelet Vol. 11.8 fl (6.2-12.0); Monocyte# 0.96 X10^3/uL; Monocyte% 16.7 % (0-10); NRBC Flagged by Analyzer 0 % (0-5); Neutrophil # 3.17 X10^3/uL (2.7-7.7); Neutrophil % 55.3 % (47-70); Platelet Count 191 K/mm3 (150-450); RBC Distribution Width CV 13.7 % (11.6-14.6); RBC Distribution Width SD 47.8 fl (35.1-43.9); Red Blood Count 3.77 M/mm3 (4.2-5.4); White Blood Count 5.7 K/mm3 (4.4-11.0)
[2021-12-17] MEDS: Levothyroxine 88 MCG Tablet PO (07:00)
[2021-12-17 07:12] LABS: Hemoglobin A1c 6.1 % (3.8-5.6)
[2021-12-17 07:28] LABS: Anion Gap 6 (5-15); BUN 25 mg/dL (7-18); BUN/Creat Ratio 25.4 RATIO (10-20); Calcium,Total 9.6 mg/dL (8.5-10.1); Chloride 99 mmol/L (98-107); Cholesterol 148 mg/dL (200); Creatinine, Serum 0.99 mg/dL (0.55-1.02); EST Glomerular Filtration Rate 57 mL/min (>60); Est Glom Filt Rate - Afr Amer 69 mL/min (>60); Estimated Creatinine Clearance 35.22 ml/min; Glucose 112 mg/dL (74-106); High Density Lipoprotein 33 mg/dL; Potassium 2.7 mmol/L (3.5-5.1); Sodium Level 138 mmol/L (136-145); Triglycerides 89 mg/dL; Very Low Density Lipoprotein 18 mg/dL (5-40)
[2021-12-17] MEDS: Isosorbide Mononitrate 60 MG Tablet PO (08:19)
[2021-12-17] MEDS: Metoprolol Tartrate 50 MG Tablet PO (08:19)
[2021-12-17] MEDS: Potassium Chloride Oral Tablet 20 MEQ 60 MEQ PO ×2 (08:20→13:20)
[2021-12-17] MEDS: Oseltamivir Phosphate 30 MG Capsule PO (08:20)
[2021-12-17] MEDS: Mirabegron 50 MG TAB.ER.24H PO (08:20)
[2021-12-17] MEDS: Allopurinol 100 MG Tablet PO (08:20)
[2021-12-17] MEDS: Ascorbic Acid 500 MG Tablet PO (08:20)
[2021-12-17] MEDS: Methenamine Hippurate 1 GM Tablet PO (08:20)
[2021-12-17] MEDS: Cyanocobalamin 500 MCG Tablet 1000 MCG PO (08:20)
[2021-12-17] MEDS: 0.9% Saline Lock 10 ML Syringe IV (08:20)
[2021-12-17] MEDS: amLODIPine 5 MG Tablet PO (08:20)
[2021-12-17] MEDS: Furosemide 40 MG/4 ML Vial IV ×2 (08:20→17:10)
[2021-12-17] MEDS: Pantoprazole Sodium 40 MG Tablet PO (08:20)
[2021-12-17] MEDS: ICOSAPENT ETHYL 1 GM CAPSULE 2 GM PO ×2 (08:20→17:10)
[2021-12-17] MEDS: Benzonatate 100 MG Capsule PO (08:27)
[2021-12-17] MEDS: Linacolotide 145 MCG CAPSULE PO (08:27)
--- NOTE | 2021-12-17 10:00 | PN.CARD_ITS ---
Subjective Subjective Patient has fatigue, shortness of breath, cough and malaise. No chest pain. She has tested positive for influenza A. Troponin went up but she has no anginal symptoms. Objective Data Vital Signs: Vital Signs Temp Pulse Resp BP Pulse Ox 97.0 F L 86 18 136/55 H 88 12/17/21 08:16 12/17/21 08:19 12/17/21 08:16 12/17/21 08:19 12/17/21 08:35 Oxygen Flow Rate (L/min) [At 2 REST with Oxygen] Oxygen Flow Rate (L/min) 2 Oxygen Delivery Method Nasal Cannula Weight: 245 lb 9.519 oz Body Mass Index (BMI) 42.1 Intake & Output: Intake and Output for Last 24 Hours 12/15/21 12/16/21 12/17/21 23:59 23:59 23:59 Intake Total 220 / 220 810 / 810 Output Total 2000 / 2700 1050 / 1050 Balance 220 / -680 -1190 / -1890 -1050 / -1050 Lab / Micro Data Result Diagrams: 12/17/21 05:35 12/17/21 05:35 Labs: Laboratory Results - last 24 hr 12/17/21 05:35: WBC 5.7, RBC 3.77 L, Hgb 12.0, Hct 35.7 L, MCV 94.7, MCH 31.8, MCHC 33.6, RDW Std Deviation 47.8 H, RDW Coeff of Robbi 13.7, Plt Count 191, MPV 11.8, Immature Gran % (Auto) 0.300, Neut % (Auto) 55.3, Lymph % (Auto) 22.6, [place] % (Auto) 16.7 H, Eos % (Auto) 4.4, Baso % (Auto) 0.7, Absolute Neuts (auto) 3.2, Absolute Lymphs (auto) 1.30, Nucleated RBC % 0 12/17/21 05:35: Sodium 138, Potassium 2.7 L*, Chloride 99, Carbon Dioxide 33.0 H , Anion Gap 6, BUN 25 H, Creatinine 0.99, Estim Creat Clear Calc 35.22, Est GFR (MDRD) Af Amer 69, Est GFR (MDRD) Non-Af 57 L, BUN/Creatinine Ratio 25.4 H, Glucose 112 H, Calcium 9.6, Triglycerides 89, Cholesterol 148, LDL Cholesterol 97, VLDL Cholesterol 18, HDL Cholesterol 33 L 12/17/21 05:35: Hemoglobin A1c 6.1 H Micro: Microbiology 12/16/21 09:35 Sputum, Expectorated/Coughed Gram Stain - Final 12/16/21 09:35 Sputum, Expectorated/Coughed Respiratory Culture - Prelim inary Appears to be normal respiratory george. Further studies to follow. 12/16/21 18:50 Urine, Random Legionella Antigen - Final 12/16/21 18:50 Urine, Random Streptococcus pneumoniae Antigen (M - Final Cardiology Labs/Tests 12/17/21 05:35: WBC 5.7, RBC 3.77 L, Hgb 12.0, Hct 35.7 L, MCV 94.7, MCH 31.8, MCHC 33.6, Plt Count 191, MPV 11.8, Immature Gran % (Auto) 0.300, Neut % (Auto) 55.3, Lymph % (Auto) 22.6, [place] % (Auto) 16.7 H, Eos % (Auto) 4.4, Baso % (Auto) 0.7, Absolute Neuts (auto) 3.2, Nucleated RBC % 0 12/17/21 05:35: Sodium 138, Potassium 2.7 L*, Chloride 99, Carbon Dioxide 33.0 H , Anion Gap 6, BUN 25 H, Creatinine 0.99, Est GFR (MDRD) Af Amer 69, Est GFR (MDRD) Non-Af 57 L, BUN/Creatinine Ratio 25.4 H, Glucose 112 H, Calcium 9.6, Triglycerides 89, Cholesterol 148, LDL Cholesterol 97, VLDL Cholesterol 18, HDL Cholesterol 33 L 12/17/21 05:35: Hemoglobin A1c 6.1 H Radiography Diagnostic Testing: Radiology Impression Echocardiogram 12/16/21 05:55 Interpretation Summary The estimated ejection fraction is 65 %. Unable to assess diastolic dysfunction. Trivial mitral valve insufficiency. Ordering Physician: Kayla Hewitt Referring Physician: Aditya Hope Chi Performed By: Marck Mcgarry RCS Physical Exam Const alert, oriented x3 and no apparent distress General Appearance: ill appearing Positive for acutely HEENT normocephalic, head/scalp atraumatic, hearing grossly normal bilaterally and nasal mucous membranes and turbinates normal Eyes PERRL, EOMs intact bilaterally, conjunctivae normal and no scleral icterus Resp normal respiratory effort and no use of accessory muscles Auscultation: crackles bilateral and diminished lung sounds bilateral Cardio regular rate, regular rhythm, S1 normal heart sound, S2 normal heart sound, no murmurs, no rub, no gallops and no clicks Jugular Venous Distention: Negative for JVD Peripheral Pulses: pulses 2+ throughout GI normal to inspection, nondistended, normoactive bowel sounds, soft to palpation, non-tender and non-distended Neuro oriented x3 and CN's II-XII intact bilaterally Assessment & Plan Assessment/Plan (1) Non-STEMI (non-ST elevated myocardial infarction): PLAN: Patient does not have any chest pain. Enzymes did go up and could be type II related to her influenza. At this time agree with keeping the patient on aspirin and adding statin. She does not require coronary angiography this admission unless her clinical situation changes. She can follow-up with us as an outpatient and at that time we could either do a stress test or schedule her for coronary angiogram based on her clinical status. Continue with Amlodipine, Atorvastatin, Imdur, ASA, This case was discussed with Dr. Person. He agrees with plan of care. (2) History of coronary artery stent placement: (3) Hypokalemia: PLAN: This is being replaced and monitored (4) Acute diastolic (congestive) heart failure: PLAN: BNP slightly elevated, will continue with lasix. She is on PO lasix at home. Charges/Coding Visit Charges Inpatient E&M: 54290 Subs Hosp L2
--- NOTE | 2021-12-17 10:25 | CASEMGMT ---
Patient is from assisted living at [facility]. Physician feels patient should go to the group home side of the facility. Physician spoke with patient and she is agreeable. ANNMARIE called Jessika at [facility] and let her know this information. ANNMARIE faxed PT/OT to Jessika at [facility]. Billie JAMES
--- NOTE | 2021-12-17 12:00 | CASEMGMT ---
ANNMARIE spoke with Jessika at [facility] and they feel like SNF would be a good idea for patient. SW let her know patient will go today. SW called patient's son, Trip and notified him that patient will be going to the senior living side of [facility]. Trip was going to transport her but he has to work. SW let him know SW can arrange transport and he said that would probably be best. He would like a call when SW has a potato picker time. Billie JAMES
[2021-12-17 12:46] LABS: Potassium 2.9 mmol/L (3.5-5.1)
--- NOTE | 2021-12-17 12:57 | DS.PCM_ITS ---
Providers Date of Admission: 12/15/21 Date of Discharge: 12/17/21 Primary Care Physician: Dr. Aditya Hope MD Consultations 12/15/21 14:19 Consult: Cardiology Routine Consulting Provider: Celi Olsen Reason for Consult: nonstemi EMERGENT Consult: No MD Notified: Yes Date Notified: 12/15/21 Time Notified: 12:57 Method of Notification: Text 12/15/21 18:09 Consult: Onc/Wound/pension agent Routine Comment: Laceration to right leg Reason For Visit: NONSTEMI Diagnosis Discharge Diagnosis (1) Non-STEMI (non-ST elevated myocardial infarction): Status: Acute Code(s): I21.4 - Non-ST elevation (NSTEMI) myocardial infarction (2) History of coronary artery stent placement: Status: Resolved Code(s): Z95.5 - Presence of coronary angioplasty implant and graft (3) Hypokalemia: Status: Acute Code(s): E87.6 - Hypokalemia (4) Acute diastolic (congestive) heart failure: Status: Acute Code(s): I50.31 - Acute diastolic (congestive) heart failure Medications at Discharge Home Medications ascorbic acid (vitamin C) 500 mg PO DAILY 05/12/17 allopurinol 100 mg PO DAILYCM 09/13/18 cyanocobalamin (vitamin B-12) 1,000 mcg PO DAILY 09/13/18 hydrocodone-acetaminophen 1 tab PO DAILY PRN PRN 09/13/18 methenamine hippurate 1 gm PO BID 09/13/18 furosemide 40 mg tablet 80 mg PO BID tab 06/20/20 icosapent ethyl 1 gram capsule 2 g PO BID 06/20/20 potassium chloride 20 mEq tablet,extended release 40 meq PO Q6H PRN tab 06/20/20 aspirin 81 mg tablet,delayed release 81 mg PO QDAY #30 tab 06/28/20 Myrbetriq 50 mg PO DAILY 03/28/21 esomeprazole magnesium 40 mg PO DAILY 03/28/21 levothyroxine 88 mcg PO DAILY 03/28/21 metoprolol tartrate 50 mg tablet 50 mg PO BID #180 tab 05/20/21 Linzess 145 mcg PO DAILY PRN PRN 12/15/21 isosorbide dinitrate 60 mg PO DAILY 12/15/21 nitroglycerin 0.4 mg SUBLINGUAL PRN PRN 12/15/21 acetaminophen [Tylenol] 650 mg PO Q6H PRN PRN #0 tab 12/17/21 amlodipine 10 mg PO DAILY #30 tab 12/17/21 atorvastatin 80 mg PO QHS #0 tab 12/17/21 benzonatate 100 mg PO Q4H PRN PRN #0 cap 12/17/21 enoxaparin [Lovenox] 110 mg SUBCUT Q12H #10 ml 12/17/21 ipratropium-albuterol 3 ml INHALATION Q6H.RT #0 ml 12/17/21 oseltamivir 30 mg PO BID #0 cap 12/17/21 warfarin 2.5 mg PO DAILY #30 tab 12/17/21 Hospital Course Operations None Procedures 2-D Echocardiogram Summary of Care Provided Minutes Spent on Discharge: 41 Hospital Course: Mrs. Lopez is an 86-year-old female who presented to the emergency department at [facility] on 12/15/2021 complaining of shortness of breath that started the night prior to admission. She evidently had been seen in the emergency department the day prior to admission for leg laceration that occurred after she stumbled into her wheeled walker that created a skin tear. Patient reported she was anticoagulated and she had a lot of bleeding initially. This was dressed at that time and she returned to her assisted living facility. She also complained of being short of breath at that time however it seems that her shortness of breath had gotten worse and she had complained of some fevers with a cough productive of yellowish sputum and therefore she returned to the emergency department. She had to wearing nocturnal oxygen but wears none during the day. Her vital signs in the emergency department were overall unimpressive. She was satting 95% on room air. Her CBC was unimpressive. Her CHEM panel showed hypokalemia at 3.0 which appears to be a chronic issue for her and I suspect this is related to her chronic chlorthalidone and Lasix use. Her serum creatinine was 1.25 which appears to be her baseline but her initial troponin was elevated at 965. A repeat of troponin was obtained and found to be 1586. A third troponin was found to be greater than 2000. She was admitted to PCU for further work-up for cardiac issues and of influenza swab was positive for influenza A. She was started on Tamiflu for this. With regards to her i nfluenza she was maintained on Tamiflu for a total of 5 days and discharged with 2 days left remaining. She was also placed on supplemental oxygen and was assessed prior to discharge. She needed 1 to 2 L at rest and actually no oxygen with ambulation however I would continue having her wear oxygen with ambulation until she no longer needs oxygen at rest. Supportive medications for fever and cough were also given to the patient. She had no further fevers within 24 hours of discharge and her cough had improved. With regards to her elevated troponins, cardiology was consulted and recommended continuing aspirin, her home beta billy for, her home Lasix, and the addition of a high-dose statin as well as assessment with an echocardiogram and possibly angiography. Her echocardiogram was performed on 12/16/2021 and showed an EF of 65% with no wall motion abnormality, trivial mitral valve insufficiency, and unassessable diastolic dysfunction. With an overall unremarkable echocardiogram cardiology reevaluated the patient and would like her to follow-up as an outpatient for noninvasive testing once her flu symptoms have resolved. With regards to her blood pressure her chlorthalidone was discontinued as she is also receiving Lasix and I suspect this combination is causing her chronically low potassium. Her potassium was 2.7 on the a.m. of discharge with a repeat at 2.9 and a follo w-up potassium in the afternoon of. She is to continue her home potassium supplementation. Her Norvasc was increased from 5 mg to 10 mg daily and we will need to watch for lower extremity edema with this increase. With her influenza A infection she had marked weakness it was felt that she would be most appropriate for placement into the skilled side of her facility with transition back to assisted living as her strength improved. The patient was agreeable to this and patient was discharged in stable condition on 12/17/2021 back to the [facility] in [place] but on the skilled side. Her med reconciliation was somewhat confusing as it did not have her taking Coumadin. We therefore called her primary care physician as she self administers her medications at her assisted living facility and we did confirm she is on 2 mg of Coumadin daily. This was restarted but also given the fact that she had a subtherapeutic INR at 1.6 on 12/16/2021 and she is on Coumadin for history of DVT/PE we will go ahead and bridge her with Lovenox until she has 2 therapeutic INR is on subsequent days. Is recommended she follow-up with cardiology and appointment has been made for this as noted in her discharge instructions. She is also follow-up with her primary care physician within the next 4 weeks. I would recommend a repeat BMP be done on the a.m. of 12/18/2021 to reassess her potassium. Discharge diagnoses: NSTEMI Hypokalemia Influenza A infection Acute on chronic diastolic heart failure-resolved Hypertension GERD Gout CAD Hypothyroidism History of DVT/PE Chronic anticoagulation with Coumadin Physical Exam Const alert, oriented x3 and no apparent distress Constitutional Narrative: Elderly white female In a chair at the bedside, patient was dozing off but awakened easily and had no specific complaints. General Appearance: cooperative, comfortable, well kempt and well developed Exam Limitations: no limitations Nutritional Appearance: morbidly obese HEENT normocephalic, head/scalp atraumatic, moist oral mucous membranes and oropharynx normal; Negative for dentition normal HEENT Narrative: Patient is mildly hard of hearing, dentition is poor, no thrush, Mallampati is 3 Eyes PERRL, EOMs intact bilaterally and conjunctivae normal Eyes Narrative: No scleral icterus Neck no lymphadenopathy and supple Neck Narrative: Trachea is midline, no thyroid enlargement Resp normal respiratory effort, no retractions, no use of accessory muscles and clear to auscultation bilaterally Auscultation: Negative for crackles, rales, rhonchi or wheezes Cardio regular rate, regular rhythm, S1 normal heart sound, S2 normal heart sound, no murmurs, no rub, no gallops, no clicks and no JVD Cardio Narrative: Few ectopic beats GI normal to inspection, nondistended, normoactive bowel sounds, soft to palpation, non-tender and non-distended; Negative for hepatosplenomegaly Extremity normal to inspection, full ROM and no clubbing, cyanosis or edema Extremity Narrative: Right lower extremity dressing in place-clean and dry Skin no rashes or lesions noted, skin turgor normal, no jaundice, no petechiae and no mottling Skin Narrative: Wound right lower extremity secondary to fall Neuro oriented x3, CN's II-XII intact bilaterally, moves all extremities and no focal motor deficits Neuro Narrative: Significant generalized weakness however no focal deficit Sensorium / Orientation: awake and alert Speech: speech normal Psych affect normal Weight / BMI Weight Weight: 111.4 kg Body Mass Index (BMI) 42.1 ABG / Lab / Microbiology Data Result Diagrams: 12/17/21 05:35 12/17/21 12:10 Laboratory: Laboratory Results - last 24 hr 12/17/21 05:35: WBC 5.7, RBC 3.77 L, Hgb 12.0, Hct 35.7 L, MCV 94.7, MCH 31.8, MCHC 33.6, RDW Std Deviation 47.8 H, RDW Coeff of Robbi 13.7, Plt Count 191, MPV 11.8, Immature Gran % (Auto) 0.300, Neut % (Auto) 55.3, Lymph % (Auto) 22.6, Hamblen % (Auto) 16.7 H, Eos % (Auto) 4.4, Baso % (Auto) 0.7, Absolute Neuts (auto) 3.2, Absolute Lymphs (auto) 1.30, Nucleated RBC % 0 12/17/21 05:35: Sodium 138, Potassium 2.7 L*, Chloride 99, Carbon Dioxide 33.0 H , Anion Gap 6, BUN 25 H, Creatinine 0.99, Estim Creat Clear Calc 35.22, Est GFR (MDRD) Af Amer 69, Est GFR (MDRD) Non-Af 57 L, BUN/Creatinine Ratio 25.4 H, Glucose 112 H, Calcium 9.6, Triglycerides 89, Cholesterol 148, LDL Cholesterol 97, VLDL Cholesterol 18, HDL Cholesterol 33 L 12/17/21 05:35: Hemoglobin A1c 6.1 H 12/17/21 12:10: Potassium 2.9 L Microbiology: Microbiology 12/16/21 09:35 Sputum, Expectorated/Coughed Gram Stain - Final 12/16/21 09:35 Sputum, Expectorated/Coughed Respiratory Culture - Preliminary Appears to be normal respiratory george. Further studies to follow. 12/16/21 18:50 Urine, Random Legionella Antigen - Final 12/16/21 18:50 Urine, Random Streptococcus pneumoniae Antigen (M - Final 12/15/21 09:52 Nasal Secretion SARS-CoV-2 & FLU Antigen (Rapid) - Final Influenzae A Radiography Diagnostic Testing: Radiology Impression Echocardiogram 12/16/21 05:55 Interpretation Summary The estimated ejection fraction is 65 %. Unable to assess diastolic dysfunction. Trivial mitral valve insufficiency. Ordering Physician: Kayla Hewitt Referring Physician: Aditya Hope Chi Performed By: Marck Mcgarry RCS D/C Instructions Discharge Diet: Low fat / Low cholesterol, 1800 Calorie Control Diet, 8 Cup Fluid Restriction and 2000 mg Sodium Diet Meaningful Use Info Meaningful Use Diagnoses (Choose all that apply): None applicable Discharge Plan Admission Admit Date/Time: 12/15/21 12:53 Primary Reason for Your Visit: Shortness of Breath Attending Provider: Erica Santos Primary Care Provider: Aditya Hope Chi Consulting Providers: Celi Olsen Discharge Orders/Prescriptions Prescriptions: New amlodipine 10 mg tablet 10 mg PO DAILY Qty: 30 RF: 0 atorvastatin 80 mg Tablet 80 mg PO QHS Qty: 0 RF: 0 acetaminophen [Tylenol] 325 mg Tablet 650 mg PO Q6H PRN PRN (Reason: Pain Score 1-10/Temp > 100.7 F) Qty: 0 RF: 0 ipratropium-albuterol 0.5 mg-3 mg(2.5 mg base)/3 mL Solution For Nebulization 3 ml inhalation Q6H.RT Qty: 0 RF: 0 benzonatate 100 mg Capsule 100 mg PO Q4H PRN PRN (Reason: Cough) Qty: 0 RF: 0 oseltamivir 30 mg Capsule 30 mg PO BID Qty: 0 RF: 0 warfarin 2.5 mg tablet 2.5 mg PO DAILY Qty: 30 RF: 0 enoxaparin [Lovenox] 100 mg/mL syringe 110 mg subcut Q12H Qty: 10 RF: 0 Continued furosemide 40 mg tablet 80 mg PO BID RF: 0 Vascepa 1 gram capsule 2 g PO BID RF: 0 potassium chloride 20 mEq tablet extended release 40 meq PO Q6H PRN RF: 0 ascorbic acid (vitamin C) 500 MG tablet 500 mg PO DAILY RF: 0 hydrocodone-acetaminophen 1 EACH tablet 1 tab PO DAILY PRN PRN (Reason: Back Pain) RF: 0 allopurinol 100 MG tablet 100 mg PO DAILYCM RF: 0 methenamine hippurate 1 GM tablet 1 gm PO BID RF: 0 cyanocobalamin (vitamin B-12) 1,000 MCG capsule 1,000 mcg PO DAILY RF: 0 levothyroxine 88 mcg tablet 88 mcg PO DAILY RF: 0 esomeprazole magnesium 40 mg capsule,delayed release(DR/EC) 40 mg PO DAILY RF: 0 Myrbetriq 50 mg tablet extended release 24 hr 50 mg PO DAILY RF: 0 isosorbide dinitrate 40 mg Tablet 60 mg PO DAILY RF: 0 Linzess 145 mcg capsule 145 mcg PO DAILY PRN PRN (Reason: Constipation) RF: 0 nitroglycerin 0.4 mg tablet, sublingual 0.4 mg sublingual PRN PRN (Reason: Chest Pain) RF: 0 aspirin [Adult Aspirin Regimen] 81 mg tablet,delayed release (DR/EC) 81 mg PO QDAY Qty: 30 RF: 0 metoprolol tartrate 50 mg tablet 50 mg PO BID Qty: 180 RF: 3 Discontinued chlorthalidone 25 mg tablet 12.5 mg PO .COMPLEX RF: 0 amlodipine 5 mg tablet 5 mg PO DAILY Qty: 90 RF: 3 Referrals / Follow Up: Aditya Hope Chi, MD [Primary Care Provider] - Within 1 Month Iveth Moctezuma PA [PHYSICIAN WIND ENERGY MECHANIC] - 01/07/22 9:30 am Disposition Disposition (needs filled in before D/C Order can be placed): Group Home Facility Charges/Coding Visit Charges Inpatient E&M: 43460 SNF Disch >30 Min
--- NOTE | 2021-12-17 14:46 | PCM.TXEXTCAR ---
Diet 12/16/21 08:38 Diet: Cardiac - Heart Healthy Is pt able to select menu?: Yes Diet Comments: heart cath Routine Orders/Code Status O2 Liters per Minute: 2 O2 Frequency: Continuous Keep PO Greater than or Equal to (%): 88 Routine Lab Work: CBC (weekly), BMP (every other day until potassium is stable) and INR (daily until 2 consecutive therapeutic INR's) Code Status: Full Code Wound(s) Right lower leg: Wound Type: Laceration Dressing Change: Adaptic Suggestions for Active Care Change Position every (hours): 2 Therapies Weight Bearing: Full weight bearing (use WW) Physical Therapy: Eval and Treat Occupational Therapy: Eval and Treat Problem/Diagnosis (1) Non-STEMI (non-ST elevated myocardial infarction): Status: Acute (2) History of coronary artery stent placement: Status: Resolved Comment: STEFANIA to prox LAD w/ 3.0 x 16 mm Promus Premier Stent November 2013 (3) Hypokalemia: Status: Acute (4) Acute diastolic (congestive) heart failure: Status: Acute Allergies/Procedures Done in Hospital Allergies ibuprofen Allergy (Verified 12/15/21 09:13) Unknown chlorthalidone Adverse Reaction (Intermediate, Verified 12/15/21 09:13) Really dizzy and lightheaded Procedures: 2-D Echocardiogram Type of Care/Length of Stay Estimated LOS: Convalescent Care Less Than 30 days Type of Care Needed: Skilled Rehab Potential: Good Prognosis: Good Additional Orders/Day of Discharge Day of Discharge: 12/17/21 Discharge Plan Admission Admit Date/Time: 12/15/21 12:53 Primary Reason for Your Visit: Shortness of Breath Attending Provider: Erica Santos Primary Care Provider: Aditya Hope Chi Consulting Providers: Celi Olsen Discharge Orders/Prescriptions Prescriptions: New amlodipine 10 mg tablet 10 mg PO DAILY Qty: 30 RF: 0 atorvastatin 80 mg Tablet 80 mg PO QHS Qty: 0 RF: 0 acetaminophen [Tylenol] 325 mg Tablet 650 mg PO Q6H PRN PRN (Reason: Pain Score 1-10/Temp > 100.7 F) Qty: 0 RF: 0 ipratropium-albuterol 0.5 mg-3 mg(2.5 mg base)/3 mL Solution For Nebulization 3 ml inhalation Q6H.RT Qty: 0 RF: 0 benzonatate 100 mg Capsule 100 mg PO Q4H PRN PRN (Reason: Cough) Qty: 0 RF: 0 oseltamivir 30 mg Capsule 30 mg PO BID Qty: 0 RF: 0 warfarin 2.5 mg tablet 2.5 mg PO DAILY Qty: 30 RF: 0 enoxaparin [Lovenox] 100 mg/mL syringe 110 mg subcut Q12H Qty: 10 RF: 0 Continued furosemide 40 mg tablet 80 mg PO BID RF: 0 Vascepa 1 gram capsule 2 g PO BID RF: 0 potassium chloride 20 mEq tablet extended release 40 meq PO Q6H PRN RF: 0 ascorbic acid (vitamin C) 500 MG tablet 500 mg PO DAILY RF: 0 hydrocodone-acetaminophen 1 EACH tablet 1 tab PO DAILY PRN PRN (Reason: Back Pain) RF: 0 allopurinol 100 MG tablet 100 mg PO DAILYCM RF: 0 methenamine hippurate 1 GM tablet 1 gm PO BID RF: 0 cyanocobalamin (vitamin B-12) 1,000 MCG capsule 1,000 mcg PO DAILY RF: 0 levothyroxine 88 mcg tablet 88 mcg PO DAILY RF: 0 esomeprazole magnesium 40 mg capsule,delayed release(DR/EC) 40 mg PO DAILY RF: 0 Myrbetriq 50 mg tablet extended release 24 hr 50 mg PO DAILY RF: 0 isosorbide dinitrate 40 mg Tablet 60 mg PO DAILY RF: 0 Linzess 145 mcg capsule 145 mcg PO DAILY PRN PRN (Reason: Constipation) RF: 0 nitroglycerin 0.4 mg tablet, sublingual 0.4 mg sublingual PRN PRN (Reason: Chest Pain) RF: 0 aspirin [Adult Aspirin Regimen] 81 mg tablet,delayed release (DR/EC) 81 mg PO QDAY Qty: 30 RF: 0 metoprolol tartrate 50 mg tablet 50 mg PO BID Qty: 180 RF: 3 Discontinued chlorthalidone 25 mg tablet 12.5 mg PO .COMPLEX RF: 0 amlodipine 5 mg tablet 5 mg PO DAILY Qty: 90 RF: 3 Referrals / Follow Up: Aditya Hope Chi, MD [Primary Care Provider] - Within 1 Month Iveth Moctezuma PA [PHYSICIAN CORRECTIONAL PROBATION OFFICER] - 01/07/22 9:30 am Disposition Disposition (needs filled in before D/C Order can be placed): [facility]
[2021-12-17 15:28] LABS: Potassium 3.4 mmol/L (3.5-5.1)
--- NOTE | 2021-12-17 15:46 | CASEMGMT ---
ANNMARIE arranged for patient to get picked up at 1730 via [facility] van. SW faxed orders, negative COVID from 27, and pickle maker time. SW notified patient's son via phone. SW also notified patient. Plan: d[facility]c to [facility] skilled level of care on a convalescent stay. [facility] transported via [facility] van. Billie JAMES
== END 2021-12-17 18:55 | disposition skilled nursing facility (03) | DRG 193 ==
LOC: ED 12:45 → PCU 13:52
PROVIDERS: Internal Medicine; Internal Medicine Interventional Cardiology; Admitting Provider Student in an Organized Health Care Education/Training Program; Emergency Provider Emergency Medicine; PCP Family Medicine Geriatric Medicine; Visit Provider Internal Medicine
DX: J10.1 Influenza due to other identified influenza virus with other respiratory manifestations (principal); I21.A1 Myocardial infarction type 2; I50.33 Acute on chronic diastolic (congestive) heart failure; Z68.41 Body mass index [BMI] 40.0-44.9, adult; I27.21 Secondary pulmonary arterial hypertension; I11.0 Hypertensive heart disease with heart failure; I71.2 Thoracic aortic aneurysm, without rupture; I48.0 Paroxysmal atrial fibrillation; J44.9 Chronic obstructive pulmonary disease, unspecified; E66.01 Morbid (severe) obesity due to excess calories; I45.10 Unspecified right bundle-branch block; E78.5 Hyperlipidemia, unspecified; E78.00 Pure hypercholesterolemia, unspecified; I25.10 Atherosclerotic heart disease of native coronary artery without angina pectoris; E03.9 Hypothyroidism, unspecified; E87.6 Hypokalemia; K21.9 Gastro-esophageal reflux disease without esophagitis; S81.811A Laceration without foreign body, right lower leg, initial encounter; M10.9 Gout, unspecified; G47.33 Obstructive sleep apnea (adult) (pediatric); W19.XXXA Unspecified fall, initial encounter; Z79.01 Long term (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 anticoagulants; Z66 Do not resuscitate; Z79.82 Long term (current) use of aspirin; R53.81 Other malaise; Z86.711 Personal history of pulmonary embolism; Z79.899 Other long term (current) drug therapy; Z95.5 Presence of coronary angioplasty implant and graft; Y93.9 Activity, unspecified; Y92.9 Unspecified place or not applicable; R79.1 Abnormal coagulation profile
CPT/HCPCS: 36415; 71045; 80048; 80053; 80061; 81001; 83036; 83735; 83880; 84100; 84132; 84484; 85025; 85610; 85730; 87070; 87205; 87428; 87449; 93005; 93306; 94640; 97162; 97166; 99284; 99285; P9612; Q9957; A4216; C8929; J1940

== ENCOUNTER 2022-01-07 10:28 | Outpatient (CLI) | payer MEDICARE, OTHER, SELFPAY ==
[2022-01-07 10:54] LABS: Absolute Lymphocyte Count 0.73 X10^3/uL (0.83-4.51); Absolute Neutrophil Count 10.4 X10^3/uL (2.0-7.7); Basophil# 0.01 X10^3/uL; Basophil% 0.1 % (0-1); Hematocrit 36.2 % (37-47); Lymphocyte # 0.73 X10^3/ul (0.83-4.51); Lymphocyte % 6.1 % (19-41); Mean Corp Hgb Conc 33.1 g/dL (32-36); Mean Corpuscular Hgb 31.7 pg (27.0-32.0); Mean Corpuscular Volume 95.5 fL (81-99); Monocyte# 0.65 X10^3/uL; Monocyte% 5.5 % (0-10); NRBC Flagged by Analyzer 0 % (0-5); Neutrophil # 10.38 X10^3/uL (2.7-7.7); Neutrophil % 87.5 % (47-70); Platelet Count 295 K/mm3 (150-450); RBC Distribution Width CV 13.7 % (11.6-14.6); RBC Distribution Width SD 47.4 fl (35.1-43.9); Red Blood Count 3.79 M/mm3 (4.2-5.4); White Blood Count 11.9 K/mm3 (4.4-11.0)
[2022-01-07 11:21] LABS: BNP,B-Type NATRIURETIC PEPTIDE 199.1 pg/mL (0-100)
[2022-01-07 11:30] LABS: Anion Gap 6 (5-15); BUN 26 mg/dL (7-18); BUN/Creat Ratio 26.6 RATIO (10-20); Calcium,Total 10.6 mg/dL (8.5-10.1); Chloride 105 mmol/L (98-107); Creatinine, Serum 0.98 mg/dL (0.55-1.02); EST Glomerular Filtration Rate 57 mL/min (>60); Est Glom Filt Rate - Afr Amer 69 mL/min (>60); Glucose 182 mg/dL (74-106); Potassium 4.3 mmol/L (3.5-5.1); Sodium Level 139 mmol/L (136-145); Thyroid Stim Hormone (TSH) 0.33 uIU/mL (0.358-3.74)
== END 2022-01-07 23:59 | disposition home or self-care (01) ==
LOC: LAB 10:30
PROVIDERS: PCP Family Medicine Geriatric Medicine; Visit Provider Physician Assistant Medical
DX: E78.00 Pure hypercholesterolemia, unspecified (principal); R53.83 Other fatigue; R06.09 Other forms of dyspnea
CPT/HCPCS: 36415; 80048; 83880; 84443; 85025

== ENCOUNTER → 2022-02-25 | Outpatient (CLI) | payer MEDICARE, OTHER, SELFPAY ==
[2022-02-25 12:33] LABS: Absolute Lymphocyte Count 1.38 X10^3/uL (0.83-4.51); Absolute Neutrophil Count 7.3 X10^3/uL (2.0-7.7); Basophil# 0.07 X10^3/uL; Basophil% 0.7 % (0-1); Eosinophil# 0.66 X10^3/uL; Eosinophils% 6.4 % (0-5); Hemoglobin 11.8 g/dL (12.0-15.0); Lymphocyte # 1.38 X10^3/ul (0.83-4.51); Lymphocyte % 13.4 % (19-41); Mean Corp Hgb Conc 31.9 g/dL (32-36); Mean Corpuscular Hgb 31.1 pg (27.0-32.0); Mean Corpuscular Volume 97.4 fL (81-99); Monocyte# 0.85 X10^3/uL; Monocyte% 8.2 % (0-10); NRBC Flagged by Analyzer 0 % (0-5); Neutrophil % 70.8 % (47-70); Platelet Count 253 K/mm3 (150-450); RBC Distribution Width CV 14.5 % (11.6-14.6); RBC Distribution Width SD 51.8 fl (35.1-43.9); White Blood Count 10.3 K/mm3 (4.4-11.0)
[2022-02-25 12:45] LABS: Vitamin D,25 Hydroxy 29.3 ng/mL
[2022-02-25 12:58] LABS: ALB/GLOB Ratio 1.1 RATIO (0.9-2.4); AST(SGOT) 9 U/L (15-37); Alanine Aminotransfer ALT/SGPT 20 U/L (13-56); Albumin, Serum 3.1 g/dL (3.2-5.0); Alkaline Phosphatase 117 U/L (45-117); Anion Gap 9 (5-15); BUN 32 mg/dL (7-18); BUN/Creat Ratio 26.2 RATIO (10-20); Chloride 100 mmol/L (98-107); Creatinine, Serum 1.22 mg/dL (0.55-1.02); EST Glomerular Filtration Rate 44 mL/min (>60); Est Glom Filt Rate - Afr Amer 54 mL/min (>60); Globulin 2.9 g/dL (2.2-4.2); Glucose 176 mg/dL (74-106); Potassium 3.4 mmol/L (3.5-5.1); Sodium Level 139 mmol/L (136-145); Thyroid Stim Hormone (TSH) 1.27 uIU/mL (0.358-3.74); Uric Acid 7.8 mg/dL (2.6-6.0)
== END | disposition home or self-care (01) ==
LOC: POLAB3 09:39
PROVIDERS: PCP Family Medicine Geriatric Medicine; Visit Provider Family Medicine Geriatric Medicine
DX: I10 Essential (primary) hypertension (principal); M10.9 Gout, unspecified; E55.9 Vitamin D deficiency, unspecified
CPT/HCPCS: 36415; 80053; 82306; 84443; 84550; 85025

== ENCOUNTER → 2022-05-20 | Outpatient (CLI) | payer MEDICARE, OTHER, SELFPAY ==
[2022-05-20 12:14] LABS: Albumin, Serum 3.2 g/dL (3.2-5.0); BUN 31 mg/dL (7-18); BUN/Creat Ratio 25.8 RATIO (10-20); Calcium,Total 10.5 mg/dL (8.5-10.1); Chloride 102 mmol/L (98-107); EST Glomerular Filtration Rate 45 mL/min (>60); Est Glom Filt Rate - Afr Amer 55 mL/min (>60); Glucose 178 mg/dL (74-106); Potassium 3.3 mmol/L (3.5-5.1); Sodium Level 142 mmol/L (136-145)
[2022-05-20 12:45] LABS: PTHIN 242.4 pg/mL (18.4-80.1)
== END | disposition home or self-care (01) ==
LOC: POLAB3 11:22
PROVIDERS: PCP Family Medicine Geriatric Medicine; Visit Provider Internal Medicine Nephrology
DX: N18.31 Chronic kidney disease, stage 3a (principal)
CPT/HCPCS: 36415; 80069; 83970

== ENCOUNTER → 2022-05-28 | Outpatient (CLI) | payer MEDICARE, OTHER, SELFPAY | END | disposition home or self-care (01) | LOC: PSN 10:04 | PROVIDERS: PCP Family Medicine Geriatric Medicine; Referring Provider Family Medicine Geriatric Medicine; Visit Provider Family Medicine Geriatric Medicine | DX: R68.83 Chills (without fever) (principal) | CPT/HCPCS: 87635; 87804; 87807; C9803; U0003; U0005 ==

== ENCOUNTER → 2022-05-28 | Outpatient (CLI) | payer MEDICARE, OTHER, SELFPAY ==
[2022-05-28 12:11] LABS: Absolute Lymphocyte Count 1.59 X10^3/uL (0.83-4.51); Absolute Neutrophil Count 9.1 X10^3/uL (2.0-7.7); Basophil# 0.09 X10^3/uL; Basophil% 0.7 % (0-1); Eosinophil# 0.83 X10^3/uL; Eosinophils% 6.5 % (0-5); Hematocrit 37.8 % (37-47); Hemoglobin 12.1 g/dL (12.0-15.0); Lymphocyte # 1.59 X10^3/ul (0.83-4.51); Lymphocyte % 12.5 % (19-41); Mean Corpuscular Hgb 30.6 pg (27.0-32.0); Mean Corpuscular Volume 95.7 fL (81-99); Mean Platelet Vol. 11.9 fl (6.2-12.0); Monocyte# 1.01 X10^3/uL; NRBC Flagged by Analyzer 0 % (0-5); Neutrophil # 9.08 X10^3/uL (2.7-7.7); Neutrophil % 71.6 % (47-70); Platelet Count 277 K/mm3 (150-450); RBC Distribution Width CV 13.8 % (11.6-14.6); RBC Distribution Width SD 48.1 fl (35.1-43.9); Red Blood Count 3.95 M/mm3 (4.2-5.4); White Blood Count 12.7 K/mm3 (4.4-11.0)
[2022-05-28 12:50] LABS: ALB/GLOB Ratio 0.9 RATIO (0.9-2.4); AST(SGOT) 8 U/L (15-37); Alanine Aminotransfer ALT/SGPT 15 U/L (13-56); Albumin, Serum 3.1 g/dL (3.2-5.0); Alkaline Phosphatase 118 U/L (45-117); Anion Gap 8 (5-15); BUN 23 mg/dL (7-18); Calcium,Total 10.1 mg/dL (8.5-10.1); Chloride 103 mmol/L (98-107); Creatinine, Serum 0.96 mg/dL (0.55-1.02); EST Glomerular Filtration Rate 59 mL/min (>60); Est Glom Filt Rate - Afr Amer 71 mL/min (>60); Globulin 3.3 g/dL (2.2-4.2); Glucose 138 mg/dL (74-106); Potassium 2.9 mmol/L (3.5-5.1); Protein, Total 6.4 g/dL (6.4-8.2); Sodium Level 142 mmol/L (136-145); Thyroid Stim Hormone (TSH) 2.37 uIU/mL (0.358-3.74); Uric Acid 8.2 mg/dL (2.6-6.0)
== END | disposition home or self-care (01) ==
PROVIDERS: PCP Family Medicine Geriatric Medicine; Visit Provider Family Medicine Geriatric Medicine
DX: I10 Essential (primary) hypertension (principal); M10.9 Gout, unspecified; E55.9 Vitamin D deficiency, unspecified
CPT/HCPCS: 36415; 80053; 82306; 84443; 84550; 85025; 87635; 87804; 87807; C9803; U0003; U0005

== ENCOUNTER → 2022-06-19 | Outpatient (CLI) | payer MEDICARE, OTHER, SELFPAY | END | disposition home or self-care (01) | LOC: PSN 12:35 | PROVIDERS: PCP Family Medicine Geriatric Medicine; Referring Provider Family Medicine Geriatric Medicine; Visit Provider Family Medicine Geriatric Medicine | DX: R68.83 Chills (without fever) (principal) | CPT/HCPCS: 87635; 87804; 87807; C9803; U0003; U0005 ==

== ENCOUNTER → 2022-06-19 | Outpatient (CLI) | payer MEDICARE, OTHER, SELFPAY ==
--- NOTE | 2022-06-19 10:00 | RAD_ITS ---
STUDY: X-RAY CHEST REASON FOR EXAM: Female, 86 years old. Chest tightness. TECHNIQUE: Frontal and lateral views of the chest. COMPARISON: 12/15/2021. FINDINGS: Mild hyperinflation unchanged. Scattered healed parenchymal granulomatous calcifications unchanged. There is no demonstrated pleural abnormality. Stable cardiomegaly. Normal mediastinum and dean. Normal visualized pulmonary arteries. Aortic tortuosity with calcification unchanged. Normal visualized thoracic spine. Superior migration of both humeral heads compatible with rotator cuff degeneration. There is no demonstrated abnormality of the visualized soft tissue structures of the upper abdomen. RAD/Chest PA and Lateral IMPRESSION: Cardiomegaly with hyperinflation. No active or acute cardiopulmonary disease. Electronically Signed: Chino Ocampo, at 10:44 EDT ,
--- NOTE | 2022-06-19 10:00 | RAD_ITS ---
STUDY: X-RAY - ABDOMEN/PELVIS REASON FOR EXAM: Female, 86 years old. Abdominal pain. TECHNIQUE: AP supine and upright views of the abdomen and pelvis on 4 images. COMPARISON: None. FINDINGS: Normal visualized lung bases. There is an unremarkable bowel gas pattern with gas seen to the rectum. There is no demonstrated free abdominal air. The visualized liver, spleen and kidneys are grossly normal in size and morphology. Multiple gallstones. Vascular calcifications. Normal visualized osseous structures. RAD/Abd Inc Decub and/or Erect IMPRESSION: Multiple gallstones. No other abnormality. Electronically Signed: Chino Ocampo, at 10:52 EDT ,
== END | disposition home or self-care (01) ==
PROVIDERS: PCP Family Medicine Geriatric Medicine; Referring Provider Family Medicine Geriatric Medicine; Visit Provider Family Medicine Geriatric Medicine
DX: R07.89 Other chest pain (principal); N18.31 Chronic kidney disease, stage 3a; R11.2 Nausea with vomiting, unspecified; R10.9 Unspecified abdominal pain
CPT/HCPCS: 36415; 71046; 74019; 80053; 87635; 87804; 87807; C9803; U0003; U0005

== ENCOUNTER → 2022-07-07 | Outpatient (CLI) | payer MEDICARE, OTHER, SELFPAY ==
[2022-07-07 14:04] LABS: Albumin, Serum 3.2 g/dL (3.2-5.0); BUN 22 mg/dL (7-18); BUN/Creat Ratio 19.3 RATIO (10-20); Calcium,Total 10.3 mg/dL (8.5-10.1); Chloride 101 mmol/L (98-107); Creatinine, Serum 1.14 mg/dL (0.55-1.02); EST Glomerular Filtration Rate 48 mL/min (>60); Est Glom Filt Rate - Afr Amer 58 mL/min (>60); Glucose 143 mg/dL (74-106); Phosphorus 2.2 mg/dL (2.5-4.9); Potassium 3.2 mmol/L (3.5-5.1); Sodium Level 140 mmol/L (136-145)
== END | disposition home or self-care (01) ==
PROVIDERS: PCP Family Medicine Geriatric Medicine; Visit Provider Internal Medicine Nephrology
DX: N18.31 Chronic kidney disease, stage 3a (principal)
CPT/HCPCS: 36415; 80069

== ENCOUNTER 2022-07-15 10:26 | Outpatient (CLI) | payer MEDICARE, OTHER, SELFPAY | END 2022-07-15 23:59 | disposition home or self-care (01) | LOC: LAB.FUTURE 10:26 → LABSPEC 10:26 | PROVIDERS: PCP Family Medicine Geriatric Medicine; Visit Provider Internal Medicine Nephrology | DX: R35.0 Frequency of micturition (principal) | CPT/HCPCS: 87086; 87088; 87186 ==

== ENCOUNTER → 2022-08-01 | Outpatient (CLI) | payer MEDICARE, OTHER, SELFPAY | END | disposition home or self-care (01) | LOC: PSN 12:06 | PROVIDERS: PCP Family Medicine Geriatric Medicine; Visit Provider Family Medicine Geriatric Medicine | DX: R68.83 Chills (without fever) (principal); Z20.822 Contact with and (suspected) exposure to COVID-19 | CPT/HCPCS: 87635; 87804; 87807; C9803; U0003; U0005 ==

== ENCOUNTER → 2022-08-27 | Outpatient (CLI) | payer MEDICARE, OTHER, SELFPAY ==
[2022-08-27 12:36] LABS: Absolute Lymphocyte Count 1.44 X10^3/uL (0.83-4.51); Absolute Neutrophil Count 5.5 X10^3/uL (2.0-7.7); Basophil# 0.07 X10^3/uL; Basophil% 0.8 % (0-1); Eosinophil# 1.08 X10^3/uL; Eosinophils% 12.3 % (0-5); Hematocrit 37.1 % (37-47); Hemoglobin 11.5 g/dL (12.0-15.0); Lymphocyte # 1.44 X10^3/ul (0.83-4.51); Lymphocyte % 16.5 % (19-41); Mean Corpuscular Hgb 30.4 pg (27.0-32.0); Mean Corpuscular Volume 98.1 fL (81-99); Monocyte# 0.65 X10^3/uL; Monocyte% 7.4 % (0-10); NRBC Flagged by Analyzer 0 % (0-5); Neutrophil # 5.47 X10^3/uL (2.7-7.7); Neutrophil % 62.5 % (47-70); Platelet Count 280 K/mm3 (150-450); RBC Distribution Width CV 14.6 % (11.6-14.6); RBC Distribution Width SD 52.6 fl (35.1-43.9); Red Blood Count 3.78 M/mm3 (4.2-5.4); White Blood Count 8.8 K/mm3 (4.4-11.0)
[2022-08-27 13:16] LABS: Vitamin D,25 Hydroxy 29.1 ng/mL
[2022-08-27 13:29] LABS: AST(SGOT) 6 U/L (15-37); Alanine Aminotransfer ALT/SGPT 15 U/L (13-56); Alkaline Phosphatase 126 U/L (45-117); Anion Gap 5 (5-15); BUN 23 mg/dL (7-18); BUN/Creat Ratio 21.3 RATIO (10-20); Calcium,Total 10.1 mg/dL (8.5-10.1); Chloride 104 mmol/L (98-107); Creatinine, Serum 1.08 mg/dL (0.55-1.02); EST Glomerular Filtration Rate 51 mL/min (>60); Est Glom Filt Rate - Afr Amer 62 mL/min (>60); Glucose 196 mg/dL (74-106); Potassium 3.8 mmol/L (3.5-5.1); Sodium Level 138 mmol/L (136-145); Thyroid Stim Hormone (TSH) 1.78 uIU/mL (0.358-3.74); Uric Acid 7.4 mg/dL (2.6-6.0)
== END | disposition home or self-care (01) ==
LOC: POLAB3 09:49
PROVIDERS: PCP Family Medicine Geriatric Medicine; Visit Provider Family Medicine Geriatric Medicine
DX: I10 Essential (primary) hypertension (principal); E55.9 Vitamin D deficiency, unspecified; M10.9 Gout, unspecified
CPT/HCPCS: 36415; 80053; 82306; 84443; 84550; 85025

== ENCOUNTER 2022-09-07 13:40 | Emergency (ER) | payer MEDICARE, OTHER, SELFPAY ==
[2022-09-07 13:45] VITALS: BP 153/84; PULSE 84; RESP 20; TEMP 36.4; O2SAT 96; BMI 42.4
--- NOTE | 2022-09-07 14:04 | EKG12_ITS ---
Test Reason : SOB Blood Pressure : / mmHG Vent. Rate : 077 BPM Atrial Rate : 077 BPM P-R Int : 176 ms QRS Dur : 082 ms QT Int : 390 ms P-R-T Axes : 083 035 032 degrees QTc Int : 441 ms Normal sinus rhythm Normal ECG Confirmed by GABBY SANCHES MD ([id number]), editorial intern OWEN WILDER ([id number]) on 09/08/2022 12:54:14 PM Referred By: WALTER Confirmed By:GABBY SANCHES MD
--- NOTE | 2022-09-07 14:06 | EDS_ITS ---
HPI History of Present Illness Chief Complaint: General Illness Narrative Narrative: 87-year-old female past medical history of hypertension, hyperlipidemia, presents with malaise and fatigue and wheezing that she states she has had for weeks. She states she saw her primary care provider Dr. Hope, and got over an upper respiratory infection or illness. Over the last few weeks, she states she has been weak generally, experiencing malaise and fatigue, occasionally coughing but hears wheezing and rattling in her chest. She denies any fevers or chills. She has an occasional cough. No increased leg swelling. She states she lives in assisted living and her RN was off for few days but checked her today and stated that she looked like she had been run over by a truck. She called EMS and sent her to the emergency department for evaluation of the wheezing and the fatigue. [facility] Medical History Atherosclerotic heart disease of [place] coronary artery without angina pectoris Chest pain COPD (chronic obstructive pulmonary disease) DDD (degenerative disc disease), lumbar Dyspnea on exertion Essential hypertension Fatigue GERD (gastroesophageal reflux disease) Hyperlipidemia Hypertension Hypothyroid jail current use of anticoagulant jail use of drug Non-STEMI (non-ST elevated myocardial infarction) ADAIR (obstructive sleep apnea) Palpitations Paroxysmal atrial fibrillation Paroxysmal tachycardia Pulmonary embolism Secondary pulmonary arterial hypertension Segmental and somatic dysfunction of lumbar region Segmental and somatic dysfunction of pelvic region Segmental and somatic dysfunction of thoracic region Syncope and collapse Thoracic aortic aneurysm VTE (venous thromboembolism) Home Medications ascorbic acid (vitamin C) 500 mg tablet 500 mg PO DAILY supplement 05/12/17 [History Last Taken 09/13/18] allopurinol 100 mg tablet 100 mg PO DAILYCM gout 09/13/18 [History Last Taken 09/13/18] cyanocobalamin (vitamin B-12) 1,000 mcg capsule 1,000 mcg PO DAILY 09/13/18 [History Last Taken 09/12/18] hydrocodone-acetaminophen 5-325mg 5mg-325mg 1 tab PO DAILY PRN PRN Back Pain 09/13/18 [History Last Taken 09/13/18] methenamine hippurate 1 gram tablet 1 gm PO BID 09/13/18 [History Last Taken 09/13/18] furosemide 40 mg tablet 80 mg PO BID water pill 06/20/20 [History Last Taken Unknown] icosapent ethyl 1 gram capsule (Vascepa) 2 g PO BID 06/20/20 [History Last Taken Unknown] aspirin 81 mg tablet,delayed release (Adult Aspirin Regimen) 81 mg PO QDAY #30 tabs 06/28/20 [Rx Last Taken 07/20/20] esomeprazole magnesium 40 mg capsule,delayed release 40 mg PO DAILY 03/28/21 [History Last Taken Unknown] levothyroxine 88 mcg tablet 88 mcg PO DAILY 03/28/21 [History Last Taken U nknown] mirabegron 50 mg tablet,extended release 24 hr (Myrbetriq) 50 mg PO DAILY 03/28/21 [History Last Taken Unknown] linaclotide 145 mcg capsule (Linzess) 145 mcg PO DAILY PRN PRN Constipation 11/20 04/11 [History Last Taken Unknown] nitroglycerin 0.4 mg sublingual tablet 0.4 mg sublingual PRN PRN Chest Pain 12/15/21 [History Last Taken Unknown] acetaminophen 325 mg tablet (Tylenol) 650 mg PO Q6H PRN PRN Pain Score 1-10/Temp > 100.7 F #0 tabs 12/17/21 [Rx Last Taken Unknown] benzonatate 100 mg capsule 100 mg PO Q4H PRN PRN Cough #0 caps 12/17/21 [Rx Last Taken Unknown] ipratropium 0.5 mg-albuterol 3 mg (2.5 mg base)/3 mL nebulization soln 3 ml inhalation Q6H.RT #0 mL 12/17/21 [Rx Last Taken Unknown] warfarin 2.5 mg tablet 2.5 mg PO DAILY #30 tabs 12/17/21 [Rx Last Taken Unknown] chlorthalidone 25 mg tablet See Rx Instructions PO DAILY 01/07/22 [History Last Taken Unknown] potassium chloride 20 mEq tablet,extended release 40 meq PO .QID 01/07/22 [History Last Taken Unknown] amlodipine 5 mg tablet See Rx Instructions .Route .COMPLEX #28 tabs 04/22/22 [Rx Last Taken Unknown] isosorbide mononitrate 60 mg tablet,extended release 24 hr See Rx Instructions .Route .COMPLEX #28 TABLETS 04/22/22 [Rx Last Taken Unknown] metoprolol tartrate 50 mg tablet 50 mg PO BID #60 tabs 04/28/22 [Rx Last Taken Unknown] Allergy/AdvReac Type Severity Reaction Status Date / Time ibuprofen Allergy Unknown Verified 09/07/22 13:51 chlorthalidone AdvReac Intermediate Really Verified 09/07/22 13:51 dizzy and lightheaded Family History Father Myocardial infarction hx black lung Mother CHF (congestive heart failure) Sister CAD (coronary artery disease) Hx CABG Myocardial infarction Diabetes CHF (congestive heart failure) Brother FH: ALS (amyotrophic lateral sclerosis) Brother pacemaker Surgical History History of appendectomy History of colonoscopy History of coronary artery stent placement (11/2013) History of dilation and curettage History of hysterectomy History of left heart catheterization (07/20/20) Social History Smoking Status: Never smoker alcohol intake: never substance use type: does not use diet: low salt caffeine: No what type of physical activity do you participate in: none seatbelt use: always do you feel safe at home: Yes ROS ROS ED ROS Narrative Constitutional: No fever, no chills. Positive malaise and fatigue. HEENT: No sore throat. No neck pain. No loss of vision. No rhinorrhea. Cardiovascular: No chest pain. No palpitations. No pedal edema. Respiratory: Occasional cough, no shortness of breath. States hears wheezing and rattling in chest for weeks. Abdominal: No abdominal pain. No nausea. No vomiting. Genitourinary: No dysuria. No hematuria. Musculoskeletal: No myalgias. No arthralgias. Neurologic: No headaches. No dizziness. No lightheadedness. Skin: No rash. No change in color. Psychiatric: No depression. No anxiety. EXAM Physical Exam Narrative Exam Narrative: Afebrile. Vital signs noted. HEENT: Normocephalic. Atraumatic. PERRL, EOMI. Neck soft and supple. No point tenderness or step off. Cardiovascular: Regular rate and rhythm. No murmurs, rubs, or gallops appreciated. Respiratory: No tachypnea. Lungs clear to auscultation bilaterally. Gastrointestinal: Abdomen soft, nontender, with normoactive bowel sounds. No rebound or guarding. Neurological: Awake. Alert. Nonfocal, nonlateralizing. Skin: No rash. Normal color. No pallor. Musculoskeletal: No pedal edema. Full range of motion extremities. Const Vital Signs: 09/07/22 13:45 09/07/22 13:54 Temperature 97.5 F L Temperature Source Oral Pulse Rate 84 Respiratory Rate 20 H Respiratory Effort Short of Breath Respiratory Pattern Tachypnea Blood Pressure 153/84 H Blood Pressure Mean 107 Pulse Ox 96 Oxygen Delivery Method Room Air MDM MDM MDM Narrative Medical decision making narrative: Comprehensive work-up was pursued. EKG interpreted by myself demonstrates normal sinus rhythm at 77 bpm without ectopy or acute ST changes. No STEMI. She has slightly elevated white count of 12.1 which I think is nonspecific, hemoglobin normal at 12.6, hematocrit 38.6. Normal platelet count of 263. Electrolyte panel is grossly unremarkable except for glucose elevated at 157 with a low anion gap of 4. Alk phos is slightly elevated at 129 but she has normal LFTs otherwise. BNP normal at 97. Chest x-ray interpreted by myself shows no evidence of pneumonia or CHF. I do not feel that antibiotics are indicated. There is no wheezing on examination. Her pulse ox ranges from 95 to 96% on room air without evidence of hypoxia. Urinalysis is negative for infection. At this point in time, I am unsure as to the cause of her reported wheezing but I feel she be discharged safely home with follow-up. She is to call her primary care provider tomorrow. I do not feel that she needs any observation criteria. Return instructions to the emergency department were reviewed. Disposition is discharged home in stable condition. Lab Data Attestation: I reviewed the patient's lab results. Labs: Laboratory Results - last 24 hr 09/07/22 09/07/22 09/07/22 14:15 14:15 14:15 WBC 12.1 H RBC 3.99 L Hgb 12.6 Hct 38.6 MCV 96.7 MCH 31.6 MCHC 32.6 RDW Std Deviation 50.8 H RDW Coeff of Robbi 14.2 Plt Count 263 MPV 10.8 Immature Gran % (Auto) 0.300 Neut % (Auto) 71.5 H Lymph % (Auto) 13.7 L [place] % (Auto) 7.4 Eos % (Auto) 6.4 H Baso % (Auto) 0.7 Absolute Neuts (auto) 8.7 H Absolute Lymphs (auto) 1.66 Nucleated RBC % 0 Sodium 141 Potassium 4.7 Chloride 105 Carbon Dioxide 32.0 Anion Gap 4 L BUN 17 Creatinine 1.19 H Estim Creat Clear Calc 28.76 Est GFR (MDRD) Af Amer 55 L Est GFR (MDRD) Non-Af 46 L BUN/Creatinine Ratio 14.3 Glucose 157 H Calcium 10.3 H Total Bilirubin 0.70 AST 18 ALT 16 Alkaline Phosphatase 129 H B-Natriuretic Peptide 97.8 Total Protein 6.4 Albumin 3.2 Globulin 3.2 Albumin/Globulin Ratio 1.0 Urine Color Urine Clarity Urine pH Ur Specific [place] Urine Protein Urine Glucose (UA) Urine Ketones Urine Occult Blood Urine Nitrite Urine Bilirubin Urine Urobilinogen Ur Leukocyte Esterase Urine RBC Urine WBC Ur Squamous Epith Cells Urine Bacteria Urine Mucus 09/07/22 15:00 WBC RBC Hgb Hct MCV MCH MCHC RDW Std Deviation RDW Coeff of Robbi Plt Count MPV Immature Gran % (Auto) Neut % (Auto) Lymph % (Auto) [place] % (Auto) Eos % (Auto) Baso % (Auto) Absolute Neuts (auto) Absolute Lymphs (auto) Nucleated RBC % Sodium Potassium Chloride Carbon Dioxide Anion Gap BUN Creatinine Estim Creat Clear Calc Est GFR (MDRD) Af Amer Est GFR (MDRD) Non-Af BUN/Creatinine Ratio Glucose Calcium Total Bilirubin AST ALT Alkaline Phosphatase B-Natriuretic Peptide Total Protein Albumin Globulin Albumin/Globulin Ratio Urine Color Yellow Urine Clarity Clear Urine pH 6.0 Ur Specific [place] 1.015 Urine Protein Negative Urine Glucose (UA) Normal Urine Ketones Negative Urine Occult Blood Negative Urine Nitrite Negative Urine Bilirubin Negative Urine Urobilinogen Normal Ur Leukocyte Esterase Negative Urine RBC 0 SEEN Urine WBC 0 SEEN Ur Squamous Epith Cells 5-10 SEEN Urine Bacteria 0 SEEN Urine Mucus 0 SEEN Radiography Diagnostic Testing: Clinical Impression(s) from Imaging Studies Chest X-Ray 09/07/22 14:30 IMPRESSION: No radiographic evidence of acute cardiopulmonary disease and no significant interval change when compared to 06/19/2022.. Electronically Signed: Clay Ramos MD at 14:50 EST Reading Location ID and State: [facility] / [place] , Service support , Discharge Plan Triage Chief Complaint: General Illness ED Provider: Clay Gross Dx/Rx/DC Orders Clinical Impression: Fatigue, Malaise, History of COPD Instructions: ED Weakness (Uncertain Cause) Prescriptions: No Action furosemide 40 mg tablet 80 mg PO BID Vascepa 1 gram capsule 2 g PO BID potassium chloride 20 mEq tablet extended release 40 meq PO .QID chlorthalidone 25 mg tablet See Rx Instructions PO DAILY Rx Instructions: 12.5 PO daily; ascorbic acid (vitamin C) 500 MG tablet 500 mg PO DAILY hydrocodone-acetaminophen 1 EACH tablet 1 tab PO DAILY PRN PRN (Reason: Back Pain) Label Comments: TAKE 1 TABLET BY MOUTH TWICE DAILY NEEDED allopurinol 100 MG tablet 100 mg PO DAILYCM methenamine hippurate 1 GM tablet 1 gm PO BID Label Comments: TAKE 1 TABLET BY MOUTH TWICE A DAY cyanocobalamin (vitamin B-12) 1,000 MCG capsule 1,000 mcg PO DAILY levothyroxine 88 mcg tablet 88 mcg PO DAILY esomeprazole magnesium 40 mg capsule,delayed release(DR/EC) 40 mg PO DAILY Myrbetriq 50 mg tablet extended release 24 hr 50 mg PO DAILY Linzess 145 mcg capsule 145 mcg PO DAILY PRN PRN (Reason: Constipation) nitroglycerin 0.4 mg tablet, sublingual 0.4 mg sublingual PRN PRN (Reason: Chest Pain) acetaminophen [Tylenol] 325 mg Tablet 650 mg PO Q6H PRN PRN (Reason: Pain Score 1-10/Temp > 100.7 F) Qty: 0 0RF ipratropium-albuterol 0.5 mg-3 mg(2.5 mg base)/3 mL Solution For Nebulization 3 ml inhalation Q6H.RT Qty: 0 0RF benzonatate 100 mg Capsule 100 mg PO Q4H PRN PRN (Reason: Cough) Qty: 0 0RF warfarin 2.5 mg tablet 2.5 mg PO DAILY Qty: 30 0RF aspirin [Adult Aspirin Regimen] 81 mg tablet,delayed release (DR/EC) 81 mg PO QDAY Qty: 30 0RF Rx Instructions: start 07/16/2020 amlodipine 5 mg tablet See Rx Instructions .ROUTE .COMPLEX Qty: 28 11RF Dose Instruction: TAKE 1 TABLET BY MOUTH DAILY Rx Instructions: TAKE 1 TABLET BY MOUTH DAILY isosorbide mononitrate 60 mg tablet extended release 24 hr See Rx Instructions .ROUTE .COMPLEX Qty: 28 11RF Dose Instruction: TAKE 1 TABLET BY MOUTH DAILY Rx Instructions: TAKE 1 TABLET BY MOUTH DAILY metoprolol tartrate 50 mg tablet 50 mg PO BID Qty: 60 11RF Primary Care Provider: Aditya Hope Chi Referrals: Aditya Hope Chi, MD [Primary Care Provider] - 1 Day Disposition Disposition: Home, Self Care
[2022-09-07 14:26] LABS: Absolute Lymphocyte Count 1.66 X10^3/uL (0.83-4.51); Absolute Neutrophil Count 8.7 X10^3/uL (2.0-7.7); Basophil# 0.08 X10^3/uL; Basophil% 0.7 % (0-1); Eosinophil# 0.77 X10^3/uL; Eosinophils% 6.4 % (0-5); Hematocrit 38.6 % (37-47); Hemoglobin 12.6 g/dL (12.0-15.0); Lymphocyte # 1.66 X10^3/ul (0.83-4.51); Lymphocyte % 13.7 % (19-41); Mean Corp Hgb Conc 32.6 g/dL (32-36); Mean Corpuscular Hgb 31.6 pg (27.0-32.0); Mean Corpuscular Volume 96.7 fL (81-99); Mean Platelet Vol. 10.8 fl (6.2-12.0); Monocyte% 7.4 % (0-10); NRBC Flagged by Analyzer 0 % (0-5); Neutrophil # 8.66 X10^3/uL (2.7-7.7); Neutrophil % 71.5 % (47-70); Platelet Count 263 K/mm3 (150-450); RBC Distribution Width CV 14.2 % (11.6-14.6); RBC Distribution Width SD 50.8 fl (35.1-43.9); Red Blood Count 3.99 M/mm3 (4.2-5.4); White Blood Count 12.1 K/mm3 (4.4-11.0)
--- NOTE | 2022-09-07 14:30 | RAD_ITS ---
EXAM: XR CHEST, 1 VIEW CLINICAL INDICATION: SOB AND WEAK TECHNIQUE: Frontal view of the chest. This report was created using [employer] report generation technology. COMPARISON: 06/19/2022. FINDINGS: LUNGS AND PLEURAL SPACES: Unremarkable. No consolidation or edema. No pneumothorax. No effusion. HEART: Unremarkable. Cardiac silhouette not enlarged. MEDIASTINUM: Central airways and mediastinal contour are unremarkable. BONES/JOINTS: Unremarkable. SOFT TISSUES: Unremarkable. RAD/Chest 1 View (Portable) IMPRESSION: No radiographic evidence of acute cardiopulmonary disease and no significant interval change when compared to 06/19/2022.. Electronically Signed: Clay Ramos MD at 14:50 EST ,
[2022-09-07 14:39] LABS: BNP,B-Type NATRIURETIC PEPTIDE 97.8 pg/mL (0-100)
[2022-09-07 14:42] LABS: AST(SGOT) 18 U/L (15-37); Alanine Aminotransfer ALT/SGPT 16 U/L (13-56); Albumin, Serum 3.2 g/dL (3.2-5.0); Alkaline Phosphatase 129 U/L (45-117); Anion Gap 4 (5-15); BUN 17 mg/dL (7-18); BUN/Creat Ratio 14.3 RATIO (10-20); Calcium,Total 10.3 mg/dL (8.5-10.1); Chloride 105 mmol/L (98-107); Creatinine, Serum 1.19 mg/dL (0.55-1.02); EST Glomerular Filtration Rate 46 mL/min (>60); Est Glom Filt Rate - Afr Amer 55 mL/min (>60); Estimated Creatinine Clearance 28.76 ml/min; Globulin 3.2 g/dL (2.2-4.2); Glucose 157 mg/dL (74-106); Potassium 4.7 mmol/L (3.5-5.1); Protein, Total 6.4 g/dL (6.4-8.2); Sodium Level 141 mmol/L (136-145)
[2022-09-07 15:02] LABS: Bacteria 0 SEEN /hpf (None Seen); Mucous, Urine 0 SEEN /hpf (<or=2+); Red Blood Cells-Urine 0 SEEN /hpf (0-5); White Blood Cells 0 SEEN /hpf (0-5)
[2022-09-07 15:31] LABS: Color, Urine Yellow (Yellow); Glucose, Dipstick Normal (Normal); Ketone-Dipstick Negative (Negative); Leukocyte Esterase-Dipstick Negative /ul (Negative); Nitrite-Dipstick Negative (Negative); Occult Blood-Urine Negative /ul (Negative); Protein-Dipstick Negative (Negative); Specific Gravity, Urine 1.015 (1.002-1.030); Urine Bilirubin Dipstick Negative (Negative); Urine Clarity Clear (Clear); Urine Urobilinogen Normal (Normal)
[2022-09-07 15:39] LABS: Squamous Epithelial Cells - UA 5-10 SEEN /hpf (5-10)
[2022-09-07 16:35] VITALS: BP 135/72; PULSE 97; RESP 20; O2SAT 94
== END 2022-09-07 16:38 | disposition home or self-care (01) ==
PROVIDERS: Emergency Provider Emergency Medicine; PCP Family Medicine Geriatric Medicine; Visit Provider Emergency Medicine
DX: R53.83 Other fatigue (principal); J44.9 Chronic obstructive pulmonary disease, unspecified; I27.21 Secondary pulmonary arterial hypertension; R53.81 Other malaise; R06.2 Wheezing; I25.10 Atherosclerotic heart disease of native coronary artery without angina pectoris; I10 Essential (primary) hypertension; E78.5 Hyperlipidemia, unspecified; E03.9 Hypothyroidism, unspecified; G47.33 Obstructive sleep apnea (adult) (pediatric); I25.2 Old myocardial infarction; Z79.01 Long term (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 anticoagulants; Z79.82 Long term (current) use of aspirin; Z79.890 Hormone replacement therapy; Z79.899 Other long term (current) drug therapy
CPT/HCPCS: 71045; 80053; 81001; 83880; 85025; 87428; 87807; 93005; 99285; A4216

== ENCOUNTER → 2022-09-26 | Outpatient (CLI) | payer MEDICARE, OTHER, SELFPAY | END | disposition home or self-care (01) | PROVIDERS: PCP Family Medicine Geriatric Medicine; Referring Provider Family Medicine Geriatric Medicine; Visit Provider Family Medicine Geriatric Medicine | DX: R68.83 Chills (without fever) (principal) | CPT/HCPCS: 87635; 87804; 87807; C9803; U0003; U0005 ==

== ENCOUNTER → 2022-11-03 | Outpatient (CLI) | payer MEDICARE, OTHER, SELFPAY | END | disposition home or self-care (01) | PROVIDERS: PCP Family Medicine Geriatric Medicine; Visit Provider Family Medicine Geriatric Medicine | DX: R68.83 Chills (without fever) (principal) | CPT/HCPCS: 87635; 87804; 87807; C9803; U0003; U0005 ==

== ENCOUNTER → 2022-11-27 | Outpatient (CLI) | payer MEDICARE, OTHER, SELFPAY | END | disposition home or self-care (01) | PROVIDERS: PCP Family Medicine Geriatric Medicine; Visit Provider Family Medicine Geriatric Medicine | DX: R68.83 Chills (without fever) (principal) | CPT/HCPCS: 87635; 87804; 87807; U0003; U0005 ==

== ENCOUNTER → 2022-11-27 | Outpatient (CLI) | payer MEDICARE, OTHER, SELFPAY ==
[2022-11-27 12:50] LABS: Absolute Lymphocyte Count 1.76 X10^3/uL (0.83-4.51); Absolute Neutrophil Count 6.8 X10^3/uL (2.0-7.7); Basophil# 0.08 X10^3/uL; Basophil% 0.7 % (0-1); Eosinophil# 1.24 X10^3/uL; Eosinophils% 11.6 % (0-5); Hematocrit 39.3 % (37-47); Hemoglobin 12.1 g/dL (12.0-15.0); Lymphocyte # 1.76 X10^3/ul (0.83-4.51); Lymphocyte % 16.4 % (19-41); Mean Corp Hgb Conc 30.8 g/dL (32-36); Mean Corpuscular Hgb 29.9 pg (27.0-32.0); Monocyte# 0.81 X10^3/uL; Monocyte% 7.6 % (0-10); NRBC Flagged by Analyzer 0 % (0-5); Neutrophil # 6.77 X10^3/uL (2.7-7.7); Neutrophil % 63.3 % (47-70); Platelet Count 261 K/mm3 (150-450); RBC Distribution Width CV 13.6 % (11.6-14.6); RBC Distribution Width SD 48.6 fl (35.1-43.9); Red Blood Count 4.05 M/mm3 (4.2-5.4); White Blood Count 10.7 K/mm3 (4.4-11.0)
[2022-11-27 13:04] LABS: Vitamin D,25 Hydroxy 29.5 ng/mL
[2022-11-27 13:16] LABS: AST(SGOT) 14 U/L (15-37); Alanine Aminotransfer ALT/SGPT 18 U/L (13-56); Alkaline Phosphatase 137 U/L (45-117); Anion Gap 8 (5-15); BUN 18 mg/dL (7-18); BUN/Creat Ratio 16.8 RATIO (10-20); Calcium,Total 10.5 mg/dL (8.5-10.1); Chloride 107 mmol/L (98-107); Creatinine, Serum 1.07 mg/dL (0.55-1.02); EST Glomerular Filtration Rate 52 mL/min (>60); Est Glom Filt Rate - Afr Amer 62 mL/min (>60); Globulin 3.1 g/dL (2.2-4.2); Glucose 144 mg/dL (74-106); Potassium 3.7 mmol/L (3.5-5.1); Protein, Total 6.1 g/dL (6.4-8.2); Sodium Level 142 mmol/L (136-145); Thyroid Stim Hormone (TSH) 2.18 uIU/mL (0.358-3.74); Uric Acid 7.6 mg/dL (2.6-6.0)
== END | disposition home or self-care (01) ==
PROVIDERS: PCP Family Medicine Geriatric Medicine; Visit Provider Family Medicine Geriatric Medicine
DX: I10 Essential (primary) hypertension (principal); R68.83 Chills (without fever); E55.9 Vitamin D deficiency, unspecified; M10.9 Gout, unspecified
CPT/HCPCS: 36415; 80053; 82306; 84443; 84550; 85025; 87635; 87804; 87807; U0003; U0005

== ENCOUNTER → 2023-01-06 | Outpatient (CLI) | payer MEDICARE, OTHER, SELFPAY | END | disposition home or self-care (01) | LOC: PSN 12:09 | PROVIDERS: PCP Family Medicine Geriatric Medicine; Visit Provider Family Medicine Geriatric Medicine | DX: R68.83 Chills (without fever) (principal) | CPT/HCPCS: 87635; 87804; 87807; C9803; U0003; U0005 ==

== ENCOUNTER → 2023-01-16 | Outpatient (CLI) | payer MEDICARE, OTHER, SELFPAY ==
[2023-01-16 14:18] LABS: Albumin, Serum 3.3 g/dL (3.2-5.0); BUN 28 mg/dL (7-18); BUN/Creat Ratio 25.5 RATIO (10-20); Calcium,Total 10.6 mg/dL (8.5-10.1); Chloride 105 mmol/L (98-107); EST Glomerular Filtration Rate 50 mL/min (>60); Est Glom Filt Rate - Afr Amer 60 mL/min (>60); Glucose 131 mg/dL (74-106); Phosphorus 2.5 mg/dL (2.5-4.9); Potassium 4.1 mmol/L (3.5-5.1); Sodium Level 139 mmol/L (136-145)
[2023-01-16 14:24] LABS: PTHIN 245.5 pg/mL (18.4-80.1)
== END | disposition home or self-care (01) ==
LOC: POLAB3 11:18
PROVIDERS: PCP Family Medicine Geriatric Medicine; Visit Provider Internal Medicine Nephrology
DX: N25.81 Secondary hyperparathyroidism of renal origin (principal); N18.31 Chronic kidney disease, stage 3a
CPT/HCPCS: 36415; 80069; 82306; 83970

== ENCOUNTER → 2023-01-26 | Outpatient (CLI) | payer MEDICARE, OTHER, SELFPAY ==
[2023-01-26 13:11] LABS: AST(SGOT) 8 U/L (15-37); Alanine Aminotransfer ALT/SGPT 13 U/L (13-56); Albumin, Serum 3.4 g/dL (3.2-5.0); Alkaline Phosphatase 133 U/L (45-117); Bilirubin, Direct 0.23 mg/dL (0.00-0.30); Globulin 3.2 g/dL (2.2-4.2); Protein, Total 6.6 g/dL (6.4-8.2)
== END | disposition home or self-care (01) ==
PROVIDERS: PCP Family Medicine Geriatric Medicine; Referring Provider Internal Medicine Pulmonary Disease; Visit Provider Internal Medicine Pulmonary Disease
DX: Z79.899 Other long term (current) drug therapy (principal)
CPT/HCPCS: 36415; 80076

== ENCOUNTER → 2023-02-25 | Outpatient (CLI) | payer MEDICARE, OTHER, SELFPAY ==
[2023-02-25 12:13] LABS: Absolute Lymphocyte Count 1.53 X10^3/uL (0.83-4.51); Absolute Neutrophil Count 7.5 X10^3/uL (2.0-7.7); Basophil# 0.06 X10^3/uL; Basophil% 0.6 % (0-1); Eosinophil# 0.61 X10^3/uL; Eosinophils% 5.7 % (0-5); Hematocrit 41.2 % (37-47); Hemoglobin 12.9 g/dL (12.0-15.0); Lymphocyte # 1.53 X10^3/ul (0.83-4.51); Lymphocyte % 14.4 % (19-41); Mean Corp Hgb Conc 31.3 g/dL (32-36); Mean Corpuscular Hgb 30.6 pg (27.0-32.0); Mean Corpuscular Volume 97.9 fL (81-99); Mean Platelet Vol. 11.7 fl (6.2-12.0); Monocyte# 0.87 X10^3/uL; Monocyte% 8.2 % (0-10); NRBC Flagged by Analyzer 0 % (0-5); Neutrophil % 70.6 % (47-70); Platelet Count 229 K/mm3 (150-450); RBC Distribution Width CV 13.2 % (11.6-14.6); RBC Distribution Width SD 47.6 fl (35.1-43.9); Red Blood Count 4.21 M/mm3 (4.2-5.4); White Blood Count 10.6 K/mm3 (4.4-11.0)
[2023-02-25 14:46] LABS: AST(SGOT) 7 U/L (15-37); Alanine Aminotransfer ALT/SGPT 14 U/L (13-56); Albumin, Serum 3.3 g/dL (3.2-5.0); Alkaline Phosphatase 133 U/L (45-117); Anion Gap 5 (5-15); BUN 25 mg/dL (7-18); Calcium,Total 10.4 mg/dL (8.5-10.1); Chloride 105 mmol/L (98-107); Creatinine, Serum 1.04 mg/dL (0.55-1.02); EST Glomerular Filtration Rate 53 mL/min (>60); Est Glom Filt Rate - Afr Amer 64 mL/min (>60); Globulin 3.3 g/dL (2.2-4.2); Glucose 95 mg/dL (74-106); Potassium 3.8 mmol/L (3.5-5.1); Protein, Total 6.6 g/dL (6.4-8.2); Sodium Level 140 mmol/L (136-145); Thyroid Stim Hormone (TSH) 0.72 uIU/mL (0.358-3.74); Uric Acid 8.9 mg/dL (2.6-6.0)
== END | disposition home or self-care (01) ==
LOC: LAB 10:46
PROVIDERS: PCP Family Medicine Geriatric Medicine; Referring Provider Family Medicine Geriatric Medicine; Visit Provider Family Medicine Geriatric Medicine
DX: I10 Essential (primary) hypertension (principal); M10.9 Gout, unspecified; E55.9 Vitamin D deficiency, unspecified
CPT/HCPCS: 36415; 80053; 82306; 84443; 84550; 85025

== ENCOUNTER 2023-05-07 10:25 | Outpatient (CLI) | payer MEDICARE, OTHER, SELFPAY ==
--- OUTSIDE RECORDS SUMMARY | 2023-05-07 10:44 | XMS RPT_ITS | CCD ---
Author Name Unknown Address [address] [place] [address] Organization [facility] Care Team Providers Care Speech Language Pathology Assistant Name Role Phone Cindy Brian Unavailable Unavailable MD Naya, Sonny Meza Unavailable Cindy Brian Unavailable Unavailable Aditya Hope [facility] Primary Care Provider Allergies Allergy Classification Reported Allergen(s) Allergy Type Date of Onset Reaction(s) Facility (3 sources) ibuprofen drug allergy 04-06-2013 [facility] Work Phone: (4 sources) ibuprofen drug allergy 04-06-2013 Unknown [facility] Work Phone: Medications Completed/Discontinued Medications Medication Drug Class(es) Dates Sig (Normalized) Sig (Original) acetaminophen 325 mg / HYDROcodone bitartrate 5 mg oral tablet (10 sources) Opioid Agonist Start: 12-12-2016 NORCO 5-325 MG TABS as needed HYDROCODONE-ACETAMI NOPHEN [id number] Sonny Person MD Problems Active Problems Problem Classification Problem Date Documented Date Episodic/Chronic Cardiac dysrhythmias (3 sources) Paroxysmal tachycardia; Translations: [Paroxysmal tachycardia, unspecified] Onset: 09-27-2014 09-27-2014 Chronic Coronary atherosclerosis and other heart disease (3 sources) Atherosclerotic heart disease of [place] coronary artery without angina pectoris; Translations: [Atherosclerotic heart disease of [place] coronary artery without angina pectoris] Onset: 12-07-2013 02-20-2016 Chronic Disorders of lipid metabolism (3 sources) Hyperlipidemia; Translations: [Hyperlipidemia, unspecified] Onset: 03-31-2013 03-31-2013 Chronic Esophageal disorders (3 sources) Gastroesophageal reflux disease; Translations: [Gastro-esophageal reflux disease without esophagitis] Onset: 11-07-2013 11-07-2013 Chronic Essential hypertension (3 sources) Hypertensive disorder; Translations: [Essential (primary) hypertension] Onset: 03-31-2013 03-31-2013 Chronic Osteoarthritis (3 sources) Osteoarthritis of knee; Translations: [Osteoarthritis of knee, unspecified] Onset: 11-20-2014 11-20-2014 Chronic Other nutritional; endocrine; and metabolic disorders (17 sources) Body mass index (BMI) 40.0-44.9, adult; Translations: [Body mass index (BMI) 39.0-39.9, adult] Onset: 11-18-2013 Resolved: 02-21-2016 06-15-2017 Chronic Pulmonary heart disease (3 sources) Pulmonary hypertension; Translations: [Other secondary pulmonary hypertension] Onset: 03-31-2013 03-31-2013 Chronic Unclassified (6 sources) Obstructive sleep apnea syndrome; Translations: [Body mass index (BMI) 39.0-39.9, adult] Onset: 11-07-2013 Resolved: 08-22-2015 11-07-2013 Chronic Unclassified (3 sources) Placement of stent in coronary artery ; Translations: [Presence of coronary angioplasty implant and graft] Onset: 02-20-2016 02-20-2016 Unclassified (2 sources) Long-term drug therapy; Translations: [Other ad terminal makeup operator (current) drug therapy] Onset: 03-30-2014 08-22-2015 Unclassified (1 source) 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; Translations: [ad terminal makeup operator (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 anticoagulants] Onset: 02-20-2016 02-20-2016 Past or Other Problems Problem Classification Problem Date Documented Da te Episodic/Chronic Fracture of upper limb (3 sources) Closed fracture of distal end of radius; Translations: [Unspecified fracture of the lower end of unspecified radius] Onset: 01-04-2015 01-11-2015 Episodic Malaise and fatigue (3 sources) Fatigue; Translations: [Other fatigue] Onset: 12-21-2013 12-21-2013 Episodic Nonspecific chest pain (9 sources) Chest discomfort; Translations: [Chest pain] Onset: 04-06-2013 Resolved: 02-20-2016 02-20-2016 Episodic Other aftercare (6 sources) Long-term (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 other medications; Translations: [MCFP (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 anticoagulants] Onset: 03-30-2014 03-30-2014 Episodic Other lower respiratory disease (3 sources) Dyspnea; Translations: [Shortness of breath] Onset: 03-31-2013 03-31-2013 Episodic Other non-traumatic joint disorders (3 sources) Knee pain; Translations: [Pain in right knee] Onset: 11-20-2014 11-20-2014 Episodic Pulmonary heart disease (3 sources) Pulmonary embolism; Translations: [Other pulmonary embolism without acute cor pulmonale] Onset: 02-20-2016 02-20-2016 Episodic Syncope (3 sources) Syncope and collapse; Translations: [Syncope and collapse] Onset: 05-16-2015 05-16-2015 Episodic Unclassified (3 sources) Percutaneous transluminal coronary angioplasty ; Translations: [Coronary angioplasty status] Onset: 12-07-2013 12-07-2013 Results Test Name Value Interpretation Reference Range Facil ity Vital Signs Date Time Vital Sign Value Performing Clinician [place] 06-15-2017 13:30-0400 BMI (Body Mass Index) 40.23 kg/m2 [facility] Work Phone: 06-15-2017 13:30-0400 BP Diastolic 70 mm[Hg] [facility] Work Phone: 06-15-2017 13:30-0400 BP Diastolic 68 mm[Hg] [facility] Work Phone: 06-15-2017 13:30-0400 BP Systolic 130 mm[Hg] [facility] Work Phone: 06-15-2017 13:30-0400 BP Systolic 108 mm[Hg] [facility] Work Phone: 06-15-2017 13:30-0400 Height 162.56 cm [facility] Work Phone: 06-15-2017 13:30-0400 Pulse (Heart Rate) 96 /min [facility] Work Phone: 06-15-2017 13:30-0400 Pulse (Heart Rate) 115 /min [facility] Work Phone: 06-15-2017 13:30-0400 Respiratory Rate 20 /min [facility] Work Phone: 06-15-2017 13:30-0400 Weight 106.31 kg [facility] Work Phone: 12-12-2016 15:12-0400 BMI (Body Mass Index) 38.79 kg/m2 MD [facility] Work Phone: 12-12-2016 15:12-0400 BP Diastolic 58 mm[Hg] MD [facility] Work Phone: 12-12-2016 15:12-0400 BP Systolic 108 mm[Hg] MD [facility] Work Phone: 12-12-2016 15:12-0400 Height 162.56 cm MD [facility] Work Phone: 12-12-2016 15:12-0400 Pulse (Heart Rate) 86 /min MD [facility] Work Phone: 12-12-2016 15:12-0400 Respiratory Rate 18 /min MD [facility] Work Phone: 12-12-2016 15:12-0400 Weight 102.51 kg Sonny Person MD [facility] Work Phone: 05-29-2016 10:04-0400 BSA (Body Surface Area) 2.08 m2 MD [facility] Work Phone: Encounters Encounter Date Encounter Type Care Provider Facility Start: 12-18-2021 End: 12-18-2021 Subsequent hospital visit by physician [facility] Provider David LYNN Procedures Date Procedure Procedure Detail Performing Clinician Start: 06-15-2017 End: 06-15-2017 [employer] SALESPERSON Iveth Moctezuma PA-C Work Phone: Start: 06-15-2017 End: 06-15-2017 Follow Up Appt 6 months Iveth barfield PA-C Work Phone: Start: 06-15-2017 End: 06-15-2017 [employer] SALESPERSON Iveth Moctezuma PA-C Work Phone: Start: 06-15-2017 End: 06-15-2017 Follow Up Appt 6 months Iveth barfield PA-C Work Phone: Start: 12-12-2016 End: 12-12-2016 Follow Up Appt 6 months Neftaly Abdi Start: 12-12-2016 End: 12-12-2016 EJ Person MD Start: 12-12-2016 End: 12-12-2016 Follow Up Appt 6 months Neftaly Abdi Start: 12-12-2016 End: 12-12-2016 EJ Person MD Start: 05-29-2016 End: 05-29-2016 [employer]ESPERSON Iveth Moctezuma PA-C Work Phone: Start: 05-29-2016 End: 05-29-2016 Ecg routine ecg w/least 12 lds w/i&r Iveth Moctezuma PA-C Work Phone: Start: 05-29-2016 End: 05-29-2016 Follow Up Appt 6 months Iveth barfield PA-C Work Phone: Start: 05-29-2016 End: 05-29-2016 [employer]IVER SALESPERSON Iveth Moctezuma PA-C Work Phone: Start: 05-29-2016 End: 05-29-2016 Electrocardiogram, complete Iveth Mireles PA-C Work Phone: Start: 05-29-2016 End: 05-29-2016 Follow Up Appt 6 months Iveth barfield PA-C Work Phone: Start: 02-21-2016 End: 02-21-2016 Follow Up Appt 3 months Neftaly Abdi Start: 02-21-2016 End: 02-21-2016 EJ Person MD Start: 02-21-2016 End: 02-21-2016 Follow Up Appt 3 months Neftaly Abdi Start: 02-21-2016 End: 02-21-2016 EJ Person MD Start: 08-22-2015 End: 08-22-2015 COSTA Moctezuma PA-C Work Phone: Start: 08-22-2015 End: 08-22-2015 Follow Up Appt 6 months Iveth barfield PA-C Work Phone: Start: 08-22-2015 End: 08-22-2015 COSTA Moctezuma PA-C Work Phone: Start: 08-22-2015 End: 08-22-2015 Follow Up Appt 6 months Iveth barfield PA-C Work Phone: Start: 07-20-2015 End: 06-03-2017 *Hepatic Function Panel Neftaly Abdi Start: 07-20-2015 End: 06-03-2017 Lipid 1996 panel - Serum or Plasma Sonny Person MD Start: 07-20-2015 End: 06-03-2017 *Hepatic Function Panel Neftaly Abdi Start: 07-20-2015 End: 06-03-2017 Lipid panel [AGGREGATE] Neftaly Abdi Start: 05-16-2015 End: 06-22-2015 Xtrnl mobile cv telemetry w/i&report 30 days Sonny Person MD Start: 05-16-2015 End: 06-22-2015 Remote 30 day ecg rev/report Sonny Person MD Start: 05-15-2015 End: 05-15-2015 Ecg routine ecg w/least 12 lds w/i&r Sonny Person MD Start: 05-15-2015 End: 05-15-2015 Follow Up Appt 3 months Neftaly Abdi Start: 05-15-2015 End: 05-15-2015 MMM Sonny Person MD Start: 05-15-2015 End: 05-18-2015 Nuclear stress test -Denita Person MD Start: 05-15-2015 End: 05-15-2015 Electrocardiogram, complete Sonny Amin i, MD Start: 05-15-2015 End: 05-15-2015 Follow Up Appt 3 months Neftaly Abdi Start: 05-15-2015 End: 05-15-2015 MMNeftaly Person MD Start: 05-15-2015 End: 05-18-2015 Nuclear stress test -Denita Person MD Start: 02-08-2015 End: 06-03-2017 Radex wrist complete minimum 3 views Sergey Jiang Work Phone: Start: 02-08-2015 End: 06-03-2017 X-ray exam of wrist Sergey Jiang Work Phone: Start: 01-02-2015 End: 01-18-2015 *Hepatic Function Panel Neftaly Abdi Start: 01-02-2015 End: 01-03-2015 Documentation of current medications Sonny Person MD Start: 01-02-2015 End: 01-02-2015 Follow Up Appt 6 months Neftaly Abdi Start: 01-02-2015 End: 01-18-2015 Lipid 1996 panel - Serum or Plasma Sonny Person MD Start: 01-02-2015 End: 01-02-2015 EJ Person MD Start: 01-02-2015 End: 01-18-2015 *Hepatic Function Panel Neftaly Abdi Start: 01-02-2015 End: 01-03-2015 Documentation of current medications Sonny Person MD Start: 01-02-2015 End: 01-02-2015 Follow Up Appt 6 months Neftaly Abdi Start: 01-02-2015 End: 01-18-2015 Lipid panel [AGGREGATE] Neftaly Abdi Start: 01-02-2015 End: 01-02-2015 EJ Person MD Start: 11-20-2014 End: 11-21-2014 Documentation of current medications Nataly E Nayana Start: 11-20-2014 End: 11-21-2014 Smoking cessation education Nataly Kraus Start: 11-20-2014 End: 11-21-2014 Documentation of current medications Nataly E Frase Start: 11-20-2014 End: 11-21-2014 Smoking cessation education Nataly E Nayana Start: 09-27-2014 End: 10-11-2014 *CBC with Differential Iveth arnold PA-C Work Phone: Start: 09-27-2014 End: 10-11-2014 24 hour holter monitor Iveth arnold PA-C Work Phone: Start: 09-27-2014 End: 09-27-2014 [employer] SALESPERSON Iveth Moctezuma PA-C Work Phone: Start: 09-27-2014 End: 09-27-2014 Ecg routine ecg w/least 12 lds w/i&r Iveth Moctezuma PA-C Work Phone: Start: 09-27-2014 End: 09-27-2014 Follow Up Appt 3 months Iveth barfield PA-C Work Phone: Start: 09-27-2014 End: 10-11-2014 Thyrotropin [Units/volume] in Serum or Plasma Iveth Moctezuma PA-C Work Phone: Start: 09-27-2014 End: 10-11-2014 Thyroxine (T4) [Mass/volume] in Serum or Plasma Iveth Moctezuma PA-C Work Phone: Start: 09-27-2014 End: 10-11-2014 *CBC with Differential Iveth arnold PA-C Work Phone: Start: 09-27-2014 End: 10-11-2014 24 hour holter monitor Iveth arnold PA-C Work Phone: Start: 09-27-2014 End: 09-27-2014 WAG[employer]IVER SALESPERSON Iveth Moctezuma PA-C Work Phone: Start: 09-27-2014 End: 09-27-2014 Electrocardiogram, complete Iveth Mireles PA-C Work Phone: Start: 09-27-2014 End: 09-27-2014 Follow Up Appt 3 months Iveth barfield PA-C Work Phone: Start: 09-27-2014 End: 10-11-2014 Thyroid stimulating hormone (TSH) Iveth Moctezuma PA-C Work Phone: Start: 09-21-2014 End: 01-18-2015 *Hepatic Function Panel Neftaly Abdi Start: 09-21-2014 End: 01-18-2015 Lipid 1996 panel - Serum or Plasma Sonny Person MD Start: 09-21-2014 End: 01-18-2015 *Hepatic Function Panel Neftaly Abdi Start: 09-21-2014 End: 01-18-2015 Lipid panel [AGGREGATE] Neftaly Abdi Start: 03-28-2014 End: 03-29-2014 *Hepatic Function Panel Neftaly Abdi Start: 03-28-2014 End: 03-28-2014 Follow Up Appt 6 months Neftaly Abdi Start: 03-28-2014 End: 03-29-2014 Lipid 1996 panel - Serum or Plasma Sonny Person MD Start: 03-28-2014 End: 03-28-2014 MMNeftaly Person MD Start: 03-28-2014 End: 03-29-2014 Thyrotropin [Units/volume] in Serum or Plasma Sonny Person MD Start: 03-28-2014 End: 03-29-2014 Thyroxine (T4) [Mass/volume] in Serum or Plasma Sonny Person MD Start: 03-28-2014 End: 03-29-2014 *Hepatic Function Panel Neftaly Abdi Start: 03-28-2014 End: 03-28-2014 Follow Up Appt 6 months Neftaly Abdi Start: 03-28-2014 End: 03-29-2014 Lipid panel [AGGREGATE] Neftaly Abdi Start: 03-28-2014 End: 03-28-2014 MMM Sonny Person MD Start: 03-28-2014 End: 03-29-2014 Thyroxine (T4) Sonny Person MD Start: 12-21-2013 End: 12-21-2013 COSTA Moctezuma PA-C Work Phone: Start: 12-21-2013 End: 12-21-2013 Follow Up Appt 3 months Iveth barfield PA-C Work Phone: Start: 12-21-2013 End: 12-21-2013 W[employer]IVER SALESPERSON Iveth Moctezuma PA-C Work Phone: Start: 12-21-2013 End: 12-21-2013 Follow Up Appt 3 months Iveth barfield PA-C Work Phone: Start: 12-07-2013 End: 12-20-2013 *CBC with Differential Iveth arnold PA-C Work Phone: Start: 12-07-2013 End: 03-01-2014 Cardiac Rehab Iveth Moctezuma PA-C Work Phone: Start: 12-07-2013 End: 12-07-2013 Ecg routine ecg w/least 12 lds w/i&r Iveth Moctezuma PA-C Work Phone: Start: 12-07-2013 End: 12-07-2013 Follow up Appt 3 weeks Iveth arnold PA-C Work Phone: Start: 12-07-2013 End: 12-07-2013 MM Iveth Moctezuma PA-C Work Phone: Start: 12-07-2013 End: 12-20-2013 *CBC with Differential Iveth arnold PA-C Work Phone: Start: 12-07-2013 End: 03-01-2014 Cardiac Rehab Iveth Moctezuma PA-C Work Phone: Start: 12-07-2013 End: 12-07-2013 Electrocardiogram, complete Iveth Mireles PA-C Work Phone: Start: 12-07-2013 End: 12-07-2013 Follow up Appt 3 weeks Iveth arnold PA-C Work Phone: Start: 12-07-2013 End: 12-07-2013 MMM Iveth Moctezuma PA-C Work Phone: Start: 11-18-2013 End: 11-18-2013 *BMP Sonny Person MD Start: 11-18-2013 End: 11-18-2013 CBC W Auto Differential panel - Blood Sonny Person MD Start: 11-18-2013 End: 11-21-2013 Chest x-ray Sonny Person MD Start: 11-18-2013 End: 11-18-2013 Ecg routine ecg w/least 12 lds w/i&r Sonny Person MD Start: 11-18-2013 End: 11-18-2013 Follow Up Appt 3 months Neftaly Abdi Start: 11-18-2013 End: 11-18-2013 INR in Platelet poor plasma by Coagulation assay Sonny Person MD Start: 11-18-2013 End: 12-07-2013 Left & Right Heart Cath Neftaly Abdi Start: 11-18-2013 End: 11-18-2013 MMM Sonny Person MD Start: 11-18-2013 End: 11-18-2013 *MARTIN Person MD Start: 11-18-2013 End: 11-18-2013 CBC W Auto Differential panel - Blood Sonny Person MD Start: 11-18-2013 End: 11-21-2013 Coagulation factor induced.INR assay in platelet poor plasma Sonny Person MD Start: 11-18-2013 End: 11-18-2013 Electrocardiogram, complete Sonny Amin i, MD Start: 11-18-2013 End: 11-18-2013 Follow Up Appt 3 months Neftaly Abdi Start: 11-18-2013 End: 12-07-2013 Left & Right Heart Cath Neftaly Abdi Start: 11-18-2013 End: 11-18-2013 EJ Person MD Start: 07-11-2013 End: 07-11-2013 [employer]IVER SALESPERSON Iveth Moctezuma PA-C Work Phone: Start: 07-11-2013 End: 07-11-2013 Follow Up Appt 6 months Iveth barfield PA-C Work Phone: Start: 07-11-2013 End: 07-11-2013 W[employer]ON [employer]IVER SALESPERSON Iveth Moctezuma PA-C Work Phone: Start: 07-11-2013 End: 07-11-2013 Follow Up Appt 6 months Iveth barfield PA-C Work Phone: Start: 04-06-2013 End: 04-06-2013 Follow Up Appt 3 months Neftaly Abdi Start: 04-06-2013 End: 04-06-2013 EJ Person MD Start: 04-06-2013 End: 04-11-2013 Nuclear stress test -adenosine Sonny Person MD Start: 04-06-2013 End: 04-06-2013 Follow Up Appt 3 months Neftaly Abdi Start: 04-06-2013 End: 04-06-2013 EJ Person MD Start: 04-06-2013 End: 04-11-2013 Nuclear stress test -adenosine Sonny Person MD Plan of Treatment Date Care Activity Detail Author Start: 09-21-2021 ADVANCE DIRECTIVE DISCUSSION ADVANCE DIRECTIVE DISCUSSION [facility] Start: 05-22-2021 Influenza vaccination INFLUENZA (#1) [facility] Start: 12-15-2017 End: 12-15-2017 Appointment Appointment [facility] Work Phone: Start: 06-15-2017 End: 06-15-2017 WAGON DRIVER SALESPERSONJanae SKELTON [facility] Work Phone: Start: 06-15-2017 End: 06-15-2017 Follow Up Appt 6 months Follow Up Appt 6 months [facility] Work Phone: Start: 06-15-2017 End: 06-15-2017 Appointment Appointment [facility] Work Phone: Start: 06-15-2017 End: 06-15-2017 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 [facility] Work Phone: Start: 06-15-2017 End: 06-15-2017 Follow Up Appt 6 months Follow Up Appt 6 months [facility] Work Phone: Start: 12-12-2016 End: 12-12-2016 Follow Up Appt 6 months Follow Up Appt 6 months [facility] Work Phone: Start: 12-12-2016 End: 12-12-2016 MMM MMM [facility] Work Phone: Start: 12-12-2016 End: 12-12-2016 Follow Up Appt 6 months Follow Up Appt 6 months [facility] Work Phone: Start: 12-12-2016 End: 12-12-2016 MMM MMM [facility] Work Phone: Start: 11-26-2016 DIABETES SCREEN DIABETES SCREEN [facility] Start: 05-29-2016 End: 05-29-2016 WAGON DRIVER SALESPERSON COSTA [facility] Work Phone: Start: 05-29-2016 End: 05-29-2016 Ecg routine ecg w/least 12 lds w/i&r EKG (In office) [facility] Work Phone: Start: 05-29-2016 End: 05-29-2016 Follow Up Appt 6 months Follow Up Appt 6 months [facility] Work Phone: Start: 05-29-2016 End: 05-29-2016 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 [facility] Work Phone: Start: 05-29-2016 End: 05-29-2016 Electrocardiogram, complete EKG (In office) [facility] Work Phone: Start: 05-29-2016 End: 05-29-2016 Follow Up Appt 6 months Follow Up Appt 6 months [facility] Work Phone: Start: 02-21-2016 End: 02-21-2016 Follow Up Appt 3 months Follow Up Appt 3 months [facility] Work Phone: Start: 02-21-2016 End: 02-21-2016 MMM MMM [facility] Work Phone: Start: 02-21-2016 End: 02-21-2016 Follow Up Appt 3 months Follow Up Appt 3 months [facility] Work Phone: Start: 02-21-2016 End: 02-21-2016 MMM MMM [facility] Work Phone: Start: 08-22-2015 End: 08-22-2015 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 [facility] Work Phone: Start: 08-22-2015 End: 08-22-2015 Follow Up Appt 6 months Follow Up Appt 6 months [facility] Work Phone: Start: 08-22-2015 End: 08-22-2015 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 [facility] Work Phone: Start: 08-22-2015 End: 08-22-2015 Follow Up Appt 6 months Follow Up Appt 6 months [facility] Work Phone: Start: 07-20-2015 End: 06-03-2017 *Hepatic Function Panel *Hepatic Function Panel [facility] Work Phone: Start: 07-20-2015 End: 06-03-2017 Lipid panel [AGGREGATE] *Lipid Profile CC PCP [facility] Work Phone: Start: 07-20-2015 End: 06-03-2017 *Hepatic Function Panel *Hepatic Function Panel [facility] Work Phone: Start: 07-20-2015 End: 06-03-2017 Lipid panel [AGGREGATE] *Lipid Profile CC PCP [facility] Work Phone: Start: 05-16-2015 End: 05-16-2015 Xtrnl mobile cv telemetry w/i&report 30 days 30 Day Holter Monitor [facility] Work Phone: Start: 05-16-2015 End: 05-16-2015 Remote 30 day ecg rev/report 30 Day Holter Monitor [facility] Work Phone: Start: 05-15-2015 End: 05-15-2015 Ecg routine ecg w/least 12 lds w/i&r EKG (In office) [facility] Work Phone: Start: 05-15-2015 End: 05-15-2015 Follow Up Appt 3 months Follow Up Appt 3 months [facility] Work Phone: Start: 05-15-2015 End: 05-15-2015 MMM MMM [facility] Work Phone: Start: 05-15-2015 End: 05-15-2015 Nuclear stress test -Lexiscan Nuclear stress test -Lexiscan [facility] Work Phone: Start: 05-15-2015 End: 05-15-2015 Electrocardiogram, complete EKG (In office) [facility] Work Phone: Start: 05-15-2015 End: 05-15-2015 Follow Up Appt 3 months Follow Up Appt 3 months [facility] Work Phone: Start: 05-15-2015 End: 05-15-2015 MMM MMM [facility] Work Phone: Start: 05-15-2015 End: 05-15-2015 Nuclear stress test -Lexiscan Nuclear stress test -Lexiscan [facility] Work Phone: Start: 02-08-2015 End: 06-03-2017 Radex wrist complete minimum 3 views X-Ray, Wrist [facility] Work Phone: Start: 02-08-2015 End: 06-03-2017 X-ray exam of wrist X-Ray, Wrist [facility] Work Phone: Start: 01-02-2015 End: 01-18-2015 *Hepatic Function Panel *Hepatic Function Panel [facility] Work Phone: Start: 01-02-2015 End: 01-02-2015 Follow Up Appt 6 months Follow Up Appt 6 months [facility] Work Phone: Start: 01-02-2015 End: 01-18-2015 Lipid panel [AGGREGATE] *Lipid Profile CC PCP [facility] Work Phone: Start: 01-02-2015 End: 01-02-2015 MMM MMM [facility] Work Phone: Start: 01-02-2015 End: 01-18-2015 *Hepatic Function Panel *Hepatic Function Panel [facility] Work Phone: Start: 01-02-2015 End: 01-02-2015 Follow Up Appt 6 months Follow Up Appt 6 months [facility] Work Phone: Start: 01-02-2015 End: 01-18-2015 Lipid panel [AGGREGATE] *Lipid Profile CC PCP [facility] Work Phone: Start: 01-02-2015 End: 01-02-2015 MMM MMM [facility] Work Phone: Start: 09-27-2014 End: 10-11-2014 *CBC with Differential *CBC with Differential [facility] Work Phone: Start: 09-27-2014 End: 09-27-2014 24 hour holter monitor 24 hour holter monitor [facility] Work Phone: Start: 09-27-2014 End: 09-27-2014 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 [facility] Work Phone: Start: 09-27-2014 End: 09-27-2014 Ecg routine ecg w/least 12 lds w/i&r EKG (In office) [facility] Work Phone: Start: 09-27-2014 End: 09-27-2014 Follow Up Appt 3 months Follow Up Appt 3 months [facility] Work Phone: Start: 09-27-2014 End: 10-11-2014 Thyroid stimulating hormone (TSH) *TSH [facility] Work Phone: Start: 09-27-2014 End: 10-11-2014 Thyroxine (T4) *T4 (Total) [facility] Work Phone: Start: 09-27-2014 End: 10-11-2014 *CBC with Differential *CBC with Differential [facility] Work Phone: Start: 09-27-2014 End: 09-27-2014 24 hour holter monitor 24 hour holter monitor [facility] Work Phone: Start: 09-27-2014 End: 09-27-2014 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 [facility] Work Phone: Start: 09-27-2014 End: 09-27-2014 Electrocardiogram, complete EKG (In office) [facility] Work Phone: Start: 09-27-2014 End: 09-27-2014 Follow Up Appt 3 months Follow Up Appt 3 months [facility] Work Phone: Start: 09-27-2014 End: 10-11-2014 Thyroid stimulating hormone (TSH) *TSH [facility] Work Phone: Start: 09-27-2014 End: 10-11-2014 Thyroxine (T4) *T4 (Total) [facility] Work Phone: Start: 09-21-2014 End: 11-22-2014 *Hepatic Function Panel *Hepatic Function Panel [facility] Work Phone: Start: 09-21-2014 End: 11-22-2014 Lipid panel [AGGREGATE] *Lipid Profile CC PCP [facility] Work Phone: Start: 09-21-2014 End: 11-22-2014 *Hepatic Function Panel *Hepatic Function Panel [facility] Work Phone: Start: 09-21-2014 End: 11-22-2014 Lipid panel [AGGREGATE] *Lipid Profile CC PCP [facility] Work Phone: Start: 03-28-2014 End: 03-29-2014 *Hepatic Function Panel *Hepatic Function Panel [facility] Work Phone: Start: 03-28-2014 End: 03-28-2014 Follow Up Appt 6 months Follow Up Appt 6 months [facility] Work Phone: Start: 03-28-2014 End: 03-29-2014 Lipid panel [AGGREGATE] *Lipid Profile CC PCP [facility] Work Phone: Start: 03-28-2014 End: 03-28-2014 MMM MMM [facility] Work Phone: Start: 03-28-2014 End: 03-29-2014 Thyroid stimulating hormone (TSH) *TSH [facility] Work Phone: Start: 03-28-2014 End: 03-29-2014 Thyroxine (T4) *T4 (Total) [facility] Work Phone: Start: 03-28-2014 End: 03-29-2014 *Hepatic Function Panel *Hepatic Function Panel [facility] Work Phone: Start: 03-28-2014 End: 03-28-2014 Follow Up Appt 6 months Follow Up Appt 6 months [facility] Work Phone: Start: 03-28-2014 End: 03-29-2014 Lipid panel [AGGREGATE] *Lipid Profile CC PCP [facility] Work Phone: Start: 03-28-2014 End: 03-28-2014 MMM MMM [facility] Work Phone: Start: 03-28-2014 End: 03-29-2014 Thyroid stimulating hormone (TSH) *TSH [facility] Work Phone: Start: 03-28-2014 End: 03-29-2014 Thyroxine (T4) *T4 (Total) [facility] Work Phone: Start: 12-21-2013 End: 12-21-2013 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 [facility] Work Phone: Start: 12-21-2013 End: 12-21-2013 Follow Up Appt 3 months Follow Up Appt 3 months [facility] Work Phone: Start: 12-21-2013 End: 12-21-2013 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 [facility] Work Phone: Start: 12-21-2013 End: 12-21-2013 Follow Up Appt 3 months Follow Up Appt 3 months [facility] Work Phone: Start: 12-07-2013 End: 12-20-2013 *CBC with Differential *CBC with Differential [facility] Work Phone: Start: 12-07-2013 End: 12-07-2013 Cardiac Rehab Cardiac Rehab [facility] Work Phone: Start: 12-07-2013 End: 12-07-2013 Ecg routine ecg w/least 12 lds w/i&r EKG (In office) [facility] Work Phone: Start: 12-07-2013 End: 12-07-2013 Follow up Appt 3 weeks Follow up Appt 3 weeks [facility] Work Phone: Start: 12-07-2013 End: 12-07-2013 MMM MMM [facility] Work Phone: Start: 12-07-2013 End: 12-20-2013 *CBC with Differential *CBC with Differential [facility] Work Phone: Start: 12-07-2013 End: 12-07-2013 Cardiac Rehab Cardiac Rehab [facility] Work Phone: Start: 12-07-2013 End: 12-07-2013 Electrocardiogram, complete EKG (In office) [facility] Work Phone: Start: 12-07-2013 End: 12-07-2013 Follow up Appt 3 weeks Follow up Appt 3 weeks [facility] Work Phone: Start: 12-07-2013 End: 12-07-2013 MMM MMM [facility] Work Phone: Start: 11-18-2013 End: 11-18-2013 *BMP *BMP [facility] Work Phone: Start: 11-18-2013 End: 11-18-2013 CBC W Auto Differential panel - Blood *CBC without Diff [facility] Work Phone: Start: 11-18-2013 End: 11-21-2013 Chest x-ray X-Ray, Chest, PA & Lateral [facility] Work Phone: Start: 11-18-2013 End: 11-18-2013 Ecg routine ecg w/least 12 lds w/i&r EKG (In office) [facility] Work Phone: Start: 11-18-2013 End: 11-18-2013 Follow Up Appt 3 months Follow Up Appt 3 months [facility] Work Phone: Start: 11-18-2013 End: 11-18-2013 INR Coag RelTime (PPP) *PT/INR [facility] Work Phone: Start: 11-18-2013 End: 11-18-2013 Left & Right Heart Cath Left & Right Heart Cath [facility] Work Phone: Start: 11-18-2013 End: 11-18-2013 MMM MMM [facility] Work Phone: Start: 11-18-2013 End: 11-18-2013 *BMP *BMP [facility] Work Phone: Start: 11-18-2013 End: 11-18-2013 CBC W Auto Differential panel - Blood *CBC without Diff [facility] Work Phone: Start: 11-18-2013 End: 11-21-2013 Chest x-ray X-Ray, Chest, PA & Lateral [facility] Work Phone: Start: 11-18-2013 End: 11-18-2013 Coagulation factor induced.INR assay in platelet poor plasma *PT/INR [facility] Work Phone: Start: 11-18-2013 End: 11-18-2013 Electrocardiogram, complete EKG (In office) [facility] Work Phone: Start: 11-18-2013 End: 11-18-2013 Follow Up Appt 3 months Follow Up Appt 3 months [facility] Work Phone: Start: 11-18-2013 End: 11-18-2013 Left & Right Heart Cath Left & Right Heart Cath [facility] Work Phone: Start: 11-18-2013 End: 11-18-2013 MMM MMM [facility] Work Phone: Start: 07-11-2013 End: 07-11-2013 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 [facility] Work Phone: Start: 07-11-2013 End: 07-11-2013 Follow Up Appt 6 months Follow Up Appt 6 months [facility] Work Phone: Start: 07-11-2013 End: 07-11-2013 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 [facility] Work Phone: Start: 07-11-2013 End: 07-11-2013 Follow Up Appt 6 months Follow Up Appt 6 months [facility] Work Phone: Start: 04-06-2013 End: 04-06-2013 Follow Up Appt 3 months Follow Up Appt 3 months [facility] Work Phone: Start: 04-06-2013 End: 04-06-2013 MMM MMM [facility] Work Phone: Start: 04-06-2013 End: 04-06-2013 Nuclear stress test -adenosine Nuclear stress test -adenosine [facility] Work Phone: Start: 04-06-2013 End: 04-06-2013 Follow Up Appt 3 months Follow Up Appt 3 months [facility] Work Phone: Start: 04-06-2013 End: 04-06-2013 MMM MMM [facility] Work Phone: Start: 04-06-2013 End: 04-06-2013 Nuclear stress test -adenosine Nuclear stress test -adenosine [facility] Work Phone: Start: 2000 BONE DENSITY BONE DENSITY [facility] Start: 2000 PNEUMOVAX AGE 65 AND OVER WITH 5YR LOOKBACK (#1) PNEUMOVAX AGE 65 AND OVER WITH 5YR LOOKBACK (#1) [facility] Start: 1985 SHINGRIX VACCINE (1 of 2) SHINGRIX VACCINE (1 of 2) [facility] Start: 1954 Urine microalbumin profile DTAP,TDAP,TD (1 - Tdap) [facility] Start: 1940 COVID-19 VACCINE (1) COVID-19 VACCINE (1) [facility] Patient Education [facility] Work Phone: Social History Date Type Detail Facility Start: 09-03-2016 Tobacco smoking status NHIS Never sm oked tobacco [facility] Start: 1935 Sex Assigned At Not on file C [facility] Summary Purpose Family History No Family History Records Found Advance Directives No Advanced Directives Records Found Additional Source Comments Source Comments (unrecognize d section and content) In the event this informatio n is protected by the Federal Confidentiality of Alcohol and Drug Abuse Patient Records regulations: The Federal rules restrict any use of the information to criminally investigate or prosecute any alcohol or drug abuse patient.[facility] Care Teams (unrecognized sec tion and content) INFORMATION SOURCE (unrecogn ized section and content) FOR RECORDS PERTAINING TO PATIENTS WHO ARE OR HAVE BEEN ENROLLED IN A CHEMICAL DEPENDENCY/SUBSTANCEABUSE PROGRAM, SOME INFORMATION MAY BE OMITTED. This clinical summary was aggregated from multiple sources. Caution should be exercised in using it in the provision of clinical care. This summary normalizes information from multiple sources, and as a consequence, information in this document may materially change the coding, format and clinical context of patient data. In addition, data may be omitted in some cases. CLINICAL DECISIONS SHOULD BE BASED ON THE PRIMARY CLINICAL RECORDS. [facility]. provides no warranty or guarantee of the accuracy or completeness of information in this document.
== END 2023-05-07 23:59 | disposition home or self-care (01) ==
PROVIDERS: PCP Family Medicine Geriatric Medicine; Referring Provider Family Medicine Geriatric Medicine; Visit Provider Family Medicine Geriatric Medicine
DX: R68.83 Chills (without fever) (principal); N39.0 Urinary tract infection, site not specified; R06.02 Shortness of breath
CPT/HCPCS: 36415; 80048; 85025; 87086; 87088; 87186; 87635; 87804; 87807; C9803

== ENCOUNTER → 2023-05-07 | Outpatient (CLI) | payer MEDICARE, OTHER, SELFPAY ==
[2023-05-07 11:25] LABS: Absolute Lymphocyte Count 1.95 X10^3/uL (0.83-4.51); Absolute Neutrophil Count 5.8 X10^3/uL (2.0-7.7); Basophil# 0.07 X10^3/uL; Basophil% 0.7 % (0-1); Eosinophil# 1.16 X10^3/uL; Eosinophils% 11.7 % (0-5); Hematocrit 41.1 % (37-47); Hemoglobin 12.9 g/dL (12.0-15.0); Lymphocyte # 1.95 X10^3/ul (0.83-4.51); Lymphocyte % 19.6 % (19-41); Mean Corp Hgb Conc 31.4 g/dL (32-36); Mean Corpuscular Hgb 30.7 pg (27.0-32.0); Mean Corpuscular Volume 97.9 fL (81-99); Mean Platelet Vol. 12.1 fl (6.2-12.0); Monocyte# 0.93 X10^3/uL; Monocyte% 9.3 % (0-10); NRBC Flagged by Analyzer 0 % (0-5); Neutrophil # 5.78 X10^3/uL (2.7-7.7); Neutrophil % 58.1 % (47-70); Platelet Count 217 K/mm3 (150-450); RBC Distribution Width CV 12.6 % (11.6-14.6); RBC Distribution Width SD 45.7 fl (35.1-43.9)
[2023-05-07 11:45] LABS: Anion Gap 5 (5-15); BUN 22 mg/dL (7-18); Calcium,Total 10.3 mg/dL (8.5-10.1); Chloride 108 mmol/L (98-107); Creatinine, Serum 1.05 mg/dL (0.55-1.02); EST Glomerular Filtration Rate 53 mL/min (>60); Est Glom Filt Rate - Afr Amer 64 mL/min (>60); Glucose 97 mg/dL (74-106); Potassium 4.2 mmol/L (3.5-5.1); Sodium Level 141 mmol/L (136-145)
== END | disposition home or self-care (01) ==
PROVIDERS: PCP Family Medicine Geriatric Medicine; Visit Provider Family Medicine Geriatric Medicine
DX: N39.0 Urinary tract infection, site not specified (principal); R06.02 Shortness of breath; R53.83 Other fatigue
CPT/HCPCS: 36415; 80048; 85025; 87086

== ENCOUNTER → 2023-07-02 | Outpatient (CLI) | payer MEDICARE, OTHER, SELFPAY ==
[2023-07-02 13:13] LABS: Absolute Lymphocyte Count 1.56 X10^3/uL (0.83-4.51); Absolute Neutrophil Count 6.2 X10^3/uL (2.0-7.7); Basophil# 0.08 X10^3/uL; Basophil% 0.8 % (0-1); Eosinophils% 11.1 % (0-5); Hematocrit 41.1 % (37-47); Hemoglobin 12.6 g/dL (12.0-15.0); Lymphocyte # 1.56 X10^3/ul (0.83-4.51); Lymphocyte % 15.7 % (19-41); Mean Corp Hgb Conc 30.7 g/dL (32-36); Mean Corpuscular Hgb 30.5 pg (27.0-32.0); Mean Corpuscular Volume 99.5 fL (81-99); Mean Platelet Vol. 11.5 fl (6.2-12.0); Monocyte# 0.95 X10^3/uL; Monocyte% 9.6 % (0-10); NRBC Flagged by Analyzer 0.7 % (0-5); Neutrophil # 6.18 X10^3/uL (2.7-7.7); Neutrophil % 62.4 % (47-70); Platelet Count 201 K/mm3 (150-450); RBC Distribution Width CV 12.8 % (11.6-14.6); RBC Distribution Width SD 46.5 fl (35.1-43.9); Red Blood Count 4.13 M/mm3 (4.2-5.4); White Blood Count 9.9 K/mm3 (4.4-11.0)
[2023-07-02 13:30] LABS: Vitamin D,25 Hydroxy 26.6 ng/mL
[2023-07-02 13:49] LABS: ALB/GLOB Ratio 0.9 RATIO (0.9-2.4); AST(SGOT) 12 U/L (15-37); Alanine Aminotransfer ALT/SGPT 17 U/L (13-56); Albumin, Serum 3.1 g/dL (3.2-5.0); Alkaline Phosphatase 137 U/L (45-117); Anion Gap 7 (5-15); BUN 22 mg/dL (7-18); CRP 3.29 mg/L (0.0-3.0); Chloride 111 mmol/L (98-107); Creatinine, Serum 0.88 mg/dL (0.55-1.02); EST Glomerular Filtration Rate 65 mL/min (>60); Est Glom Filt Rate - Afr Amer 78 mL/min (>60); Globulin 3.4 g/dL (2.2-4.2); Glucose 108 mg/dL (74-106); Potassium 3.9 mmol/L (3.5-5.1); Protein, Total 6.5 g/dL (6.4-8.2); Sodium Level 142 mmol/L (136-145); Thyroid Stim Hormone (TSH) 0.95 uIU/mL (0.358-3.74); Uric Acid 8.1 mg/dL (2.6-6.0)
[2023-07-02 18:22] LABS: Erythrocyte Sedimentation Rate 21 mm/hr (0-30)
== END | disposition home or self-care (01) ==
LOC: POLAB3 09:28
PROVIDERS: PCP Family Medicine Geriatric Medicine; Visit Provider Family Medicine Geriatric Medicine
DX: I10 Essential (primary) hypertension (principal); M10.9 Gout, unspecified; E55.9 Vitamin D deficiency, unspecified
CPT/HCPCS: 36415; 80053; 82306; 84443; 84550; 85025; 85652; 86140

== ENCOUNTER → 2023-09-30 | Outpatient (CLI) | payer MEDICARE, OTHER, SELFPAY ==
[2023-09-30 11:41] LABS: Absolute Lymphocyte Count 1.63 X10^3/uL (0.83-4.51); Absolute Neutrophil Count 5.8 X10^3/uL (2.0-7.7); Basophil# 0.07 X10^3/uL; Basophil% 0.8 % (0-1); Eosinophil# 1.01 X10^3/uL; Eosinophils% 10.9 % (0-5); Hematocrit 39.2 % (37-47); Hemoglobin 12.6 g/dL (12.0-15.0); Lymphocyte # 1.63 X10^3/ul (0.83-4.51); Lymphocyte % 17.5 % (19-41); Mean Corp Hgb Conc 32.1 g/dL (32-36); Mean Corpuscular Volume 99.5 fL (81-99); Mean Platelet Vol. 10.8 fl (6.2-12.0); Monocyte# 0.78 X10^3/uL; Monocyte% 8.4 % (0-10); NRBC Flagged by Analyzer 0 % (0-5); Neutrophil # 5.76 X10^3/uL (2.7-7.7); Platelet Count 210 K/mm3 (150-450); RBC Distribution Width SD 50.5 fl (35.1-43.9); Red Blood Count 3.94 M/mm3 (4.2-5.4); White Blood Count 9.3 K/mm3 (4.4-11.0)
[2023-09-30 12:21] LABS: AST(SGOT) 8 U/L (15-37); Alanine Aminotransfer ALT/SGPT 13 U/L (13-56); Albumin, Serum 3.1 g/dL (3.2-5.0); Alkaline Phosphatase 115 U/L (45-117); Anion Gap 6 (5-15); BUN 23 mg/dL (7-18); BUN/Creat Ratio 22.8 RATIO (10-20); Calcium,Total 10.3 mg/dL (8.5-10.1); Chloride 111 mmol/L (98-107); Creatinine, Serum 1.01 mg/dL (0.55-1.02); EST Glomerular Filtration Rate 55 mL/min (>60); Est Glom Filt Rate - Afr Amer 67 mL/min (>60); Globulin 3.1 g/dL (2.2-4.2); Glucose 126 mg/dL (74-106); Potassium 4.1 mmol/L (3.5-5.1); Protein, Total 6.2 g/dL (6.4-8.2); Sodium Level 142 mmol/L (136-145); Thyroid Stim Hormone (TSH) 1.87 uIU/mL (0.358-3.74); Uric Acid 5.8 mg/dL (2.6-6.0)
== END | disposition home or self-care (01) ==
LOC: POLAB3 10:47
PROVIDERS: PCP Family Medicine Geriatric Medicine; Visit Provider Family Medicine Geriatric Medicine
DX: I10 Essential (primary) hypertension (principal); M10.9 Gout, unspecified; E55.9 Vitamin D deficiency, unspecified
CPT/HCPCS: 36415; 80053; 82306; 84443; 84550; 85025

== ENCOUNTER 2023-10-11 13:22 | Emergency (ER) | payer MEDICARE, OTHER, SELFPAY ==
[2023-10-11 13:23] VITALS: BP 116/73; PULSE 79; RESP 20; TEMP 36.1; O2SAT 96; BMI 42.2
--- NOTE | 2023-10-11 13:33 | RAD_ITS ---
STUDY: XR Chest 1 View 10/11/2023 1:52 PM REASON FOR EXAM: Female, 88 years old. palpitations COMPARISON: 09.07.22 TECHNIQUE: XR Chest 1 View FINDINGS: There is no demonstrated pleural abnormality. Elevated right humeral head with eburnation of the acromion suggest a chronic rotator cuff tear. There is an elevated right hemidiaphragm. Normal heart size. Normal mediastinum. Normal dean. Prominent appearing increased interstitial lung markings. Normal visualized pulmonary arteries. There is atherosclerotic calcification of the aortic arch with tortuosity. There are diffuse degenerative changes of the visualized thoracic spine. There is degenerative osteoarthritis of the bilateral shoulders. There are no acute findings of the upper abdomen. RAD/Chest 1 View (Portable) IMPRESSION: There are no acute findings. Electronically Signed: Hemanth Sharp MD at 14:10 EST ,
--- NOTE | 2023-10-11 13:34 | EX.ED.DYSGE1 ---
HPI History of Present Illness Chief Complaint: Palpitations Detail of Chief Complaint: Palpitations Informant: patient Narrative Narrative: Patient presents to the emergency department complaint of palpitations. Patient states that 8 days ago she had chest pain and then 4 days ago went and saw her primary care physician. Patient states that she had taken nitroglycerin sublingual when she had the chest pain 8 days ago and then the pain resolved. Patient's had palpitations and racing heart since then and was told she was in A-fib when she saw her primary care physician 4 days ago. Patient was ordered diltiazem 60 mg twice daily. Since that time she continues to have intermittent episodes of racing heart and when she checks her heart rate it is in the 118 - 120 range. Patient just feels like her heart is pounding at times. She has history of A-fib for the last several years. She is anticoagulated on Coumadin. Denies recent illness. Denies urinary symptoms. 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 of drug Non-STEMI (non-ST elevated myocardial infarction) ADAIR (obstructive sleep apnea) Palpitations Paroxysmal atrial fibrillation Paroxysmal tachycardia Pulmonary embolism Secondary pulmonary arterial hypertension Segmental and somatic dysfunction of lumbar region Segmental and somatic dysfunction of pelvic region Segmental and somatic dysfunction of thoracic region Syncope and collapse Thoracic aortic aneurysm VTE (venous thromboembolism) Home Medications ascorbic acid (vitamin C) 500 mg tablet 500 mg PO DAILY supplement 05/12/17 [History Last Taken 09/13/18] allopurinol 100 mg tablet 100 mg PO DAILYCM gout 09/13/18 [History Last Taken 09/13/18] cyanocobalamin (vitamin B-12) 1,000 mcg capsule 1,000 mcg PO DAILY 09/13/18 [History Last Taken 09/12/18] methenamine hippurate 1 gram tablet 1 gm PO BID 09/13/18 [History Last Taken 09/13/18] furosemide 40 mg tablet 80 mg PO BID water pill 06/20/20 [History Last Taken Unknown] icosapent ethyl 1 gram capsule (Vascepa) 2 g PO BID 06/20/20 [History Last Taken Unknown] esomeprazole magnesium 40 mg capsule,delayed release 40 mg PO DAILY 03/28/21 [History Last Taken Unknown] levothyroxine 88 mcg tablet 88 mcg PO DAILY 03/28/21 [History Last Taken Unknown] mirabegron 50 mg tablet,extended release 24 hr (Myrbetriq) 50 mg PO DAILY 03/28/21 [History Last Taken Unknown] linaclotide 145 mcg capsule (Linzess) 145 mcg PO DAILY PRN PRN Constipation 12/15/21 [History Last Taken Unknown] nitroglycerin 0.4 mg sublingual tablet 0.4 mg sublingual PRN PRN Chest Pain 12/15/21 [History Last Taken Unknown] acetaminophen 325 mg tablet (Tylenol) 650 mg (2 x 325 mg) PO Q6H PRN PRN Pain Score 1-10/Temp > 100.7 F #0 tabs 12/17/21 [Rx Last Taken Unknown] benzonatate 100 mg capsule 100 mg PO Q4H PRN PRN Cough #0 caps 12/17/21 [Rx Last Taken Unknown] ipratropium 0.5 mg-albuterol 3 mg (2.5 mg base)/3 mL nebulization soln 3 ml inhalation Q6H.RT #0 mL 12/17/21 [Rx Last Taken Unknown] potassium chloride 20 mEq tablet,extended release 40 meq PO .QID 01/07/22 [History Last Taken Unknown] amlodipine 5 mg tablet See Rx Instructions .Route .COMPLEX #28 tabs 03/19/23 [Rx Last Taken Unknown] isosorbide mononitrate 60 mg tablet,extended release 24 hr See Rx Instructions .Route .COMPLEX #28 TABLETS 03/19/23 [Rx Last Taken Unknown] metoprolol tartrate 50 mg tablet 50 mg PO BID #60 tabs 03/19/23 [Rx Last Taken Unknown] diltiazem HCl 60 mg tablet 60 mg PO .Q12 10/11/23 [History Last Taken Unknown] ipratropium bromide 42 mcg (0.06 %) nasal spray 2 spray intranasal DAILY 10/11/23 [History Last Taken Unknown] warfarin 2.5 mg tablet 2.5 mg PO DAILY 10/11/23 [History Last Taken Unknown] Allergy/AdvReac Type Severity Reaction Status Date / Time ibuprofen Allergy Unknown Verified 10/11/23 13:27 chlorthalidone AdvReac Intermediate Really Verified 10/11/23 13:27 dizzy and lightheaded Family History Father Myocardial infarction hx black lung Mother CHF (congestive heart failure) Sister CAD (coronary artery disease) Hx CABG Myocardial infarction Diabetes CHF (congestive heart failure) Brother FH: ALS (amyotrophic lateral sclerosis) Brother pacemaker Surgical History History of appendectomy History of colonoscopy History of coronary artery stent placement (11/2013) History of dilation and curettage History of hysterectomy History of left heart catheterization (07/20/20) Social History (Updated 10/11/23 @ 13:26 by Mishel Jones) housing: [facility] Smoking Status: Never smoker alcohol intake: never substance use type: does not use diet: low salt caffeine: No what type of physical activity do you participate in: none seatbelt use: always do you feel safe at home: Yes ROS ROS ED Review of Systems ROS Unobtainable: other Constitutional Constitutional ED: Reports lethargy; Denies chills, fever(s), sweats or weight loss Eyes Eyes: Denies blurry vision, change in vision or diplopia ENT ENT ED: Denies rhinorrhea or sore throat Cardiovascular Cardiovascular: Reports chest pain and racing heartbeat; Denies orthopnea Respiratory/Chest Respiratory/Chest: Denies cough, dyspnea, dyspnea on exertion, orthopnea or sputum Gastrointestinal Gastrointestinal: Denies abdominal pain, diarrhea, nausea or vomiting Genitourinary Genitourinary ED: Denies dysuria, hematuria or urinary frequency Musculoskeletal Musculoskeletal: Denies arthralgias, back pain, myalgias or neck pain Integumentary Denies abscess, Abrasions or rash Neurologic Neurologic: Denies headache(s) or weakness Psychiatric Psychiatric: Denies anxiety, depression or suicidal thoughts Endocrine Endocrinology: Denies polydipsia, polyphagia or polyuria Hematologic/Lymphatic Hematologic/Lymphatic: Denies easy bleeding, easy bruising or lymphadenopathy Allergic/Immunologic Allergic/Immunologic ED: Denies mouth swelling, tongue swelling or urticaria EXAM Physical Exam Const Vital Signs: 10/11/23 13:23 10/11/23 15:02 Temperature 97 F L Temperature Source Temporal Pulse Rate 79 81 Respiratory Rate 20 H 13 Blood Pressure 116/73 119/77 Blood Pressure Mean 87 91 Pulse Ox 96 95 Oxygen Delivery Method Room Air Positive well nourished and well developed General Appearance ED: well developed and NAD HEENT Reports TM's clear and moist mucous membranes normocephalic and atraumatic; Negative for trauma or tenderness Tympanic Membrane ED: Yes TM's clear Eyes PERRL and EOMs intact bilaterally General Eye ED: Negative for pale conjunctiva or scleral icterus Neck no lymphadenopathy, supple and no JVD General: Negative for tenderness Chest Wall inspection of chest normal and palpation of chest normal Chest: Negative for tenderness Resp normal respiratory effort and clear to auscultation bilaterally Effort and Inspection: Negative for respiratory distress or pain with movement Auscultation: Negative for rhonchi, wheezes or diminished lung sounds Cardio regular rate, regular rhythm, S1 normal heart sound, S2 normal heart sound and no murmurs Peripheral Pulses: pulses 2+ throughout GI normal to inspection, nondistended, normoactive bowel sounds, soft to palpation, non-tender, non-distended and no masses Back/Spine no CVA tenderness and no thoracic nor lumbar tenderness Extremity normal to inspection General Extremety ED: Negative for edema General Extremity: Negative for edema Neuro oriented x3, CN's II-XII intact bilaterally, no sensory deficits noted and gait normal Sensorium / Orientation: awake, alert, oriented to person, oriented to place and oriented to time Motor Exam: strength 5/5 throughout and strength abnormal Psych mental status grossly normal Skin no rashes or lesions noted and no wounds MDM MDM MDM Narrative Medical decision making narrative: Patient with history of atrial fibrillation comes in with complaint of heart rate into the 118-120 range. Patient from assisted living facility and was advised by nursing staff there to get evaluated. She denies any chest pain or shortness of breath or diaphoresis or near syncopal episodes. She has known history of A-fib. She is anticoagulated and on medication for rate control that was started recently the diltiazem 60 mg twice daily. Patient had an EKG obtained on arrival that showed atrial fibrillation with ventricular rate of 73 bpm with no acute ST segment changes noted. CBC with differential obtained showed a white count of 9.9 with hemoglobin 12.7 and platelet count of 225. Chemistries unremarkable. BUN 23 and creatinine 0.94. Troponin was normal at 14. During her entire stay in the emergency department her heart rate in the 70s and 80s. INR is at 2.3. Discussed results with patient and her son. Clinically she looks well. She was supposed to follow-up with cardiology this coming week and she has an appointment with her primary care physician coming up this week. At this point I do not feel any acute intervention is necessary. She will discuss treatment options with her home mission worker and primary care physician such as cardioversion versus ablation versus medical management. Lab Data Attestation: I reviewed the patient's lab results. Labs: Laboratory Results - last 24 hr 10/11/23 13:04 WBC 9.9 RBC 3.92 L Hgb 12.7 Hct 39.4 MCV 100.5 H MCH 32.4 H MCHC 32.2 RDW Std Deviation 52.5 H RDW Coeff of Robbi 14.3 Plt Count 225 MPV 10.7 Immature Gran % (Auto) 0.600 Neut % (Auto) 62.5 Lymph % (Auto) 18.5 L [place] % (Auto) 9.7 Eos % (Auto) 8.1 H Baso % (Auto) 0.6 Absolute Neuts (auto) 6.2 Absolute Lymphs (auto) 1.83 Nucleated RBC % 0 PT 25.8 H INR 2.3 Sodium 141 Potassium 3.8 Chloride 106 Carbon Dioxide 30.0 Anion Gap 5 BUN 23 H Creatinine 0.94 Estim Creat Clear Calc 50.59 Est GFR (MDRD) Af Amer 72 Est GFR (MDRD) Non-Af 59 L BUN/Creatinine Ratio 24.4 H Glucose 129 H Calcium 9.8 Troponin I High Sens 14 Radiography Chest X-Ray - ED: 1 View Diagnostic Testing: Clinical Impression(s) from Imaging Studies Chest X-Ray 10/11/23 13:33 IMPRESSION: There are no acute findings. Electronically Signed: Hemanth Sharp MD at 14:10 EST , 1 view chest x-ray obtained interpreted by myself as no evidence of infiltrate or pneumothorax or acute disease process. Radiology in agreement. EKG Initial EKG: Attestation: I personally reviewed and interpreted this EKG as follows: Comments: Atrial fibrillation with rate of 73 bpm with no acute ST segment changes Discharge Plan Triage Chief Complaint: Palpitations ED Provider: Art Carranza Dx/Rx/DC Orders Clinical Impression: Atrial fibrillation Instructions: ED AFIB Prescriptions: No Action furosemide 40 mg tablet 80 mg PO BID Vascepa 1 gram capsule 2 g PO BID potassium chloride 20 mEq tablet extended release 40 meq PO .QID ascorbic acid (vitamin C) 500 MG tablet 500 mg PO DAILY allopurinol 100 MG tablet 100 mg PO DAILYCM methenamine hippurate 1 GM tablet 1 gm PO BID Patient Comments: TAKE 1 TABLET BY MOUTH TWICE A DAY cyanocobalamin (vitamin B-12) 1,000 MCG capsule 1,000 mcg PO DAILY levothyroxine 88 mcg tablet 88 mcg PO DAILY esomeprazole magnesium 40 mg capsule,delayed release(DR/EC) 40 mg PO DAILY Myrbetriq 50 mg tablet extended release 24 hr 50 mg PO DAILY Linzess 145 mcg capsule 145 mcg PO DAILY PRN PRN (Reason: Constipation) nitroglycerin 0.4 mg tablet, sublingual 0.4 mg sublingual PRN PRN (Reason: Chest Pain) acetaminophen [Tylenol] 325 mg Tablet 650 mg PO Q6H PRN PRN (Reason: Pain Score 1-10/Temp > 100.7 F) Qty: 0 0RF ipratropium-albuterol 0.5 mg-3 mg(2.5 mg base)/3 mL Solution For Nebulization 3 ml inhalation Q6H.RT Qty: 0 0RF benzonatate 100 mg Capsule 100 mg PO Q4H PRN PRN (Reason: Cough) Qty: 0 0RF diltiazem HCl 60 mg tablet 60 mg PO .Q12 ipratropium bromide 42 mcg (0.06 %) spray,non-aerosol 2 spray INTRANASAL DAILY warfarin 2.5 mg tablet 2.5 mg PO DAILY Rx Instructions: PT STATES THAT HER DOSE MAY HAVE CHANGED metoprolol tartrate 50 mg tablet 50 mg PO BID Qty: 60 11RF isosorbide mononitrate 60 mg tablet extended release 24 hr See Rx Instructions .ROUTE .COMPLEX Qty: 28 11RF Dose Instruction: TAKE 1 TABLET BY MOUTH DAILY Rx Instructions: TAKE 1 TABLET BY MOUTH DAILY amlodipine 5 mg tablet See Rx Instructions .ROUTE .COMPLEX Qty: 28 11RF Dose Instruction: TAKE 1 TABLET BY MOUTH DAILY Rx Instructions: TAKE 1 TABLET BY MOUTH DAILY Primary Care Provider: Aditya Hope Chi Referrals: Sonny Person MD [Med Staff - Active Staff] - 3-5 Days Aditya Hope Chi, MD [Primary Care Provider] - 3-5 Days Disposition Disposition: Home, Self Care Discharge Date/Time: 10/11/23 15:25
[2023-10-11] MEDS: 0.9% Normal Saline (1000mL) 1,000 ML 150 ML IV (13:45)
[2023-10-11 13:46] LABS: Absolute Lymphocyte Count 1.83 X10^3/uL (0.83-4.51); Absolute Neutrophil Count 6.2 X10^3/uL (2.0-7.7); Basophil# 0.06 X10^3/uL; Basophil% 0.6 % (0-1); Eosinophils% 8.1 % (0-5); Hematocrit 39.4 % (37-47); Hemoglobin 12.7 g/dL (12.0-15.0); Lymphocyte # 1.83 X10^3/ul (0.83-4.51); Lymphocyte % 18.5 % (19-41); Mean Corp Hgb Conc 32.2 g/dL (32-36); Mean Corpuscular Hgb 32.4 pg (27.0-32.0); Mean Corpuscular Volume 100.5 fL (81-99); Mean Platelet Vol. 10.7 fl (6.2-12.0); Monocyte# 0.96 X10^3/uL; Monocyte% 9.7 % (0-10); NRBC Flagged by Analyzer 0 % (0-5); Neutrophil % 62.5 % (47-70); Platelet Count 225 K/mm3 (150-450); RBC Distribution Width CV 14.3 % (11.6-14.6); RBC Distribution Width SD 52.5 fl (35.1-43.9); Red Blood Count 3.92 M/mm3 (4.2-5.4); White Blood Count 9.9 K/mm3 (4.4-11.0)
[2023-10-11 14:01] LABS: Anion Gap 5 (5-15); BUN 23 mg/dL (7-18); BUN/Creat Ratio 24.4 RATIO (10-20); Calcium,Total 9.8 mg/dL (8.5-10.1); Chloride 106 mmol/L (98-107); Creatinine, Serum 0.94 mg/dL (0.55-1.02); EST Glomerular Filtration Rate 59 mL/min (>60); Est Glom Filt Rate - Afr Amer 72 mL/min (>60); Estimated Creatinine Clearance 50.59 ml/min; Glucose 129 mg/dL (74-106); International Normalized Ratio 2.3; Potassium 3.8 mmol/L (3.5-5.1); Prothrombin Time (Protime)PT. 25.8 SECONDS (11.7-14.9); Sodium Level 141 mmol/L (136-145); Troponin-I HS 14 pg/mL (3.0-54.0)
--- OUTSIDE RECORDS SUMMARY | 2023-10-11 14:02 | XMS RPT_ITS | CCD ---
Author Name Unknown Address [address] [place] [address] Organization [facility] Care Team Providers Care Manager Image Name Role Phone Cindy Brian Unavailable Unavailable MD Naya, Sonny Meza Unavailable Cindy Brian Unavailable Unavailable Aditya Hope Chi Primary Care Provider [phone] Allergies Allergy Classification Reported Allergen(s) Allergy Type Date of Onset Reaction(s) Facility (3 sources) ibuprofen drug allergy 04-06-2013 [facility] Work Phone: (4 sources) ibuprofen drug allergy 04-06-2013 Unknown [facility] Work Phone: Medications Completed/Discontinued Medications Medication Drug Class(es) Dates Sig (Normalized) Sig (Original) acetaminophen 325 mg / HYDROcodone bitartrate 5 mg oral tablet (10 sources) Opioid Agonist Start: 12-12-2016 NORCO 5-325 MG TABS as needed HYDROCODONE-ACETAMI NOPHEN [id number] Sonny Person MD Problems Active Problems Problem Classification Problem Date Documented Date Episodic/Chronic Cardiac dysrhythmias (3 sources) Paroxysmal tachycardia; Translations: [Paroxysmal tachycardia, unspecified] Onset: 09-27-2014 09-27-2014 Chronic Coronary atherosclerosis and other heart disease (3 sources) Atherosclerotic heart disease of [place] coronary artery without angina pectoris; Translations: [Atherosclerotic heart disease of [place] coronary artery without angina pectoris] Onset: 12-07-2013 [...] (2 sources) Long-term drug therapy; Translations: [Other supervisor intermediates (current) drug therapy] Onset: 03-30-2014 08-22-2015 Unclassified (1 source) 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; Translations: [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 (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 anticoagulants] Onset: 02-20-2016 02-20-2016 [...] Long-term (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 other medications; Translations: [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 (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 anticoagulants] Onset: 03-30-2014 03-30-2014 [...] 06-15-2017 13:30-0400 BP Systolic 130 mm[Hg] [facility] Work Phone: 06-15-2017 13:30-0400 BP [...] Detail Performing Clinician Start: 06-15-2017 End: 06-15-2017 MULTIPLE CUT OFF SAW OPERATOR Iveth Moctezuma PA-C Work Phone: Start: 06-15-2017 End: 06-15-2017 Follow Up Appt 6 months Iveth barfield PA-C Work Phone: Start: 06-15-2017 End: 06-15-2017 MULTIPLE CUT OFF SAW OPERATOR Iveth Moctezuma PA-C Work Phone: Start: 06-15-2017 End: 06-15-2017 Follow Up Appt 6 months Iveth barfield PA-C Work Phone: Start: 12-12-2016 End: 12-12-2016 Follow Up Appt 6 months Neftaly Abdi Start: 12-12-2016 End: 12-12-2016 EJ Person MD Start: 12-12-2016 End: 12-12-2016 Follow Up Appt 6 months Neftaly Abdi Start: 12-12-2016 End: 12-12-2016 EJ Person MD Start: 05-29-2016 End: 05-29-2016 MULTIPLE CUT OFF SAW OPERATOR Iveth Moctezuma PA-C Work Phone: Start: 05-29-2016 End: 05-29-2016 Ecg routine ecg w/least 12 lds w/i&r Iveth Moctzeuma PA-C Work Phone: Start: 05-29-2016 End: 05-29-2016 Follow Up Appt 6 months Iveth barfield PA-C Work Phone: Start: 05-29-2016 End: 05-29-2016 MULTIPLE CUT OFF SAW OPERATOR Iveth Moctezuma PA-C Work Phone: Start: 05-29-2016 [...] 01-02-2015 End: 01-03-2015 Documentation of current medications Snony Person MD Start: 01-02-2015 End: 01-02-2015 Follow [...] PA-C Work Phone: Start: 09-27-2014 End: 09-27-2014 MULTIPLE CUT OFF SAW OPERATOR Iveth Moctezuma PA-C Work Phone: Start: 09-27-2014 [...] PA-C Work Phone: Start: 09-27-2014 End: 09-27-2014 MULTIPLE CUT OFF SAW OPERATOR Iveth Moctezuma PA-C Work Phone: Start: 09-27-2014 [...] PA-C Work Phone: Start: 12-21-2013 End: 12-21-2013 MULTIPLE CUT OFF SAW OPERATOR Iveth Moctezuma PA-C Work Phone: Start: 12-21-2013 [...] EJ Person MD Start: 07-11-2013 End: 07-11-2013 MULTIPLE CUT OFF SAW OPERATOR Iveth Moctezuma PA-C Work Phone: Start: 07-11-2013 End: 07-11-2013 Follow Up Appt 6 months Iveth barfield PA-C Work Phone: Start: 07-11-2013 End: 07-11-2013 MULTIPLE CUT OFF SAW OPERATOR Iveth Moctezuma PA-C Work Phone: Start: 07-11-2013 [...] 09-21-2021 ADVANCE DIRECTIVE DISCUSSION ADVANCE DIRECTIVE DISCUSSION [facility] Start: 05-22-2021 Influenza vaccination INFLUENZA (#1) [facility] Start: 12-15-2017 End: 12-15-2017 Appointment Appointment [facility] Work Phone: Start: 06-15-2017 End: 06-15-2017 MULTIPLE CUT OFF SAW OPERATORJanae SKELTON [facility] Work Phone: Start: 06-15-2017 End: 06-15-2017 Follow Up Appt 6 months Follow Up Appt 6 months [facility] Work Phone: Start: 06-15-2017 End: 06-15-2017 Appointment Appointment [facility] Work Phone: Start: 06-15-2017 End: 06-15-2017 MULTIPLE CUT OFF SAW OPERATOR MULTIPLE CUT OFF SAW OPERATOR [facility] Work Phone: Start: 06-15-2017 End: 06-15-2017 Follow Up Appt 6 months Follow Up Appt 6 months [facility] Work Phone: Start: 12-12-2016 End: 12-12-2016 Follow Up Appt 6 months Follow Up Appt 6 months [facility] Work Phone: Start: 12-12-2016 End: 12-12-2016 MMM MMM [facility] Work Phone: Start: 12-12-2016 End: 12-12-2016 Follow Up Appt 6 months Follow Up Appt 6 months [facility] Work Phone: Start: 12-12-2016 End: 12-12-2016 MMM MMM [facility] Work Phone: Start: 11-26-2016 DIABETES SCREEN DIABETES SCREEN [facility] Start: 05-29-2016 End: 05-29-2016 MULTIPLE CUT OFF SAW OPERATOR COSTA [facility] Work Phone: Start: 05-29-2016 End: 05-29-2016 Ecg routine ecg w/least 12 lds w/i&r EKG (In office) [facility] Work Phone: Start: 05-29-2016 End: 05-29-2016 Follow Up Appt 6 months Follow Up Appt 6 months [facility] Work Phone: Start: 05-29-2016 End: 05-29-2016 MULTIPLE CUT OFF SAW OPERATOR MULTIPLE CUT OFF SAW OPERATOR [facility] Work Phone: Start: 05-29-2016 End: 05-29-2016 Electrocardiogram, complete EKG (In office) [facility] Work Phone: Start: 05-29-2016 End: 05-29-2016 Follow Up Appt 6 months Follow Up Appt 6 months [facility] Work Phone: Start: 02-21-2016 End: 02-21-2016 Follow Up Appt 3 months Follow Up Appt 3 months [facility] Work Phone: Start: 02-21-2016 End: 02-21-2016 MMM MMM [facility] Work Phone: Start: 02-21-2016 End: 02-21-2016 Follow Up Appt 3 months Follow Up Appt 3 months [facility] Work Phone: Start: 02-21-2016 End: 02-21-2016 MMM MMM [facility] Work Phone: Start: 08-22-2015 End: 08-22-2015 MULTIPLE CUT OFF SAW OPERATOR MULTIPLE CUT OFF SAW OPERATOR [facility] Work Phone: Start: 08-22-2015 End: 08-22-2015 Follow Up Appt 6 months Follow Up Appt 6 months [facility] Work Phone: Start: 08-22-2015 End: 08-22-2015 MULTIPLE CUT OFF SAW OPERATOR MULTIPLE CUT OFF SAW OPERATOR [facility] Work Phone: Start: 08-22-2015 End: 08-22-2015 Follow Up Appt 6 months Follow Up Appt 6 months [facility] Work Phone: Start: 07-20-2015 End: 06-03-2017 *Hepatic Function Panel *Hepatic Function Panel [facility] Work Phone: Start: 07-20-2015 End: 06-03-2017 Lipid panel [AGGREGATE] *Lipid Profile CC PCP [facility] Work Phone: Start: 07-20-2015 End: 06-03-2017 *Hepatic Function Panel *Hepatic Function Panel [facility] Work Phone: Start: 07-20-2015 End: 06-03-2017 Lipid panel [AGGREGATE] *Lipid Profile CC PCP [facility] Work Phone: Start: 05-16-2015 End: 05-16-2015 Xtrnl mobile cv telemetry w/i&report 30 days 30 Day Holter Monitor [facility] Work Phone: Start: 05-16-2015 End: 05-16-2015 Remote 30 day ecg rev/report 30 Day Holter Monitor [facility] Work Phone: Start: 05-15-2015 End: 05-15-2015 Ecg routine ecg w/least 12 lds w/i&r EKG (In office) [facility] Work Phone: Start: 05-15-2015 End: 05-15-2015 Follow Up Appt 3 months Follow Up Appt 3 months [facility] Work Phone: Start: 05-15-2015 End: 05-15-2015 MMM MMM [facility] Work Phone: Start: 05-15-2015 End: 05-15-2015 Nuclear stress test -Lexiscan Nuclear stress test -Lexiscan [facility] Work Phone: Start: 05-15-2015 End: 05-15-2015 Electrocardiogram, complete EKG (In office) [facility] Work Phone: Start: 05-15-2015 End: 05-15-2015 Follow Up Appt 3 months Follow Up Appt 3 months [facility] Work Phone: Start: 05-15-2015 End: 05-15-2015 MMM MMM [facility] Work Phone: Start: 05-15-2015 End: 05-15-2015 Nuclear stress test -Lexiscan Nuclear stress test -Lexiscan [facility] Work Phone: Start: 02-08-2015 End: 06-03-2017 Radex wrist complete minimum 3 views X-Ray, Wrist [facility] Work Phone: Start: 02-08-2015 End: 06-03-2017 X-ray exam of wrist X-Ray, Wrist [facility] Work Phone: Start: 01-02-2015 End: 01-18-2015 *Hepatic Function Panel *Hepatic Function Panel [facility] Work Phone: Start: 01-02-2015 End: 01-02-2015 Follow Up Appt 6 months Follow Up Appt 6 months [facility] Work Phone: Start: 01-02-2015 End: 01-18-2015 Lipid panel [AGGREGATE] *Lipid Profile CC PCP [facility] Work Phone: Start: 01-02-2015 End: 01-02-2015 MMM MMM [facility] Work Phone: Start: 01-02-2015 End: 01-18-2015 *Hepatic Function Panel *Hepatic Function Panel [facility] Work Phone: Start: 01-02-2015 End: 01-02-2015 Follow Up Appt 6 months Follow Up Appt 6 months [facility] Work Phone: Start: 01-02-2015 End: 01-18-2015 Lipid panel [AGGREGATE] *Lipid Profile CC PCP [facility] Work Phone: Start: 01-02-2015 End: 01-02-2015 MMM MMM [facility] Work Phone: Start: 09-27-2014 End: 10-11-2014 *CBC with Differential *CBC with Differential [facility] Work Phone: Start: 09-27-2014 End: 09-27-2014 24 hour holter monitor 24 hour holter monitor [facility] Work Phone: Start: 09-27-2014 End: 09-27-2014 MULTIPLE CUT OFF SAW OPERATOR MULTIPLE CUT OFF SAW OPERATOR [facility] Work Phone: Start: 09-27-2014 End: 09-27-2014 Ecg routine ecg w/least 12 lds w/i&r EKG (In office) [facility] Work Phone: Start: 09-27-2014 End: 09-27-2014 Follow Up Appt 3 months Follow Up Appt 3 months [facility] Work Phone: Start: 09-27-2014 End: 10-11-2014 Thyroid stimulating hormone (TSH) *TSH [facility] Work Phone: Start: 09-27-2014 End: 10-11-2014 Thyroxine (T4) *T4 (Total) [facility] Work Phone: Start: 09-27-2014 End: 10-11-2014 *CBC with Differential *CBC with Differential [facility] Work Phone: Start: 09-27-2014 End: 09-27-2014 24 hour holter monitor 24 hour holter monitor [facility] Work Phone: Start: 09-27-2014 End: 09-27-2014 MULTIPLE CUT OFF SAW OPERATOR MULTIPLE CUT OFF SAW OPERATOR [facility] Work Phone: Start: 09-27-2014 End: 09-27-2014 Electrocardiogram, complete EKG (In office) [facility] Work Phone: Start: 09-27-2014 End: 09-27-2014 Follow Up Appt 3 months Follow Up Appt 3 months [facility] Work Phone: Start: 09-27-2014 End: 10-11-2014 Thyroid stimulating hormone (TSH) *TSH [facility] Work Phone: Start: 09-27-2014 End: 10-11-2014 Thyroxine (T4) *T4 (Total) [facility] Work Phone: Start: 09-21-2014 End: 11-22-2014 *Hepatic Function Panel *Hepatic Function Panel [facility] Work Phone: Start: 09-21-2014 End: 11-22-2014 Lipid panel [AGGREGATE] *Lipid Profile CC PCP [facility] Work Phone: Start: 09-21-2014 End: 11-22-2014 *Hepatic Function Panel *Hepatic Function Panel [facility] Work Phone: Start: 09-21-2014 End: 11-22-2014 Lipid panel [AGGREGATE] *Lipid Profile CC PCP [facility] Work Phone: Start: 03-28-2014 End: 03-29-2014 *Hepatic Function Panel *Hepatic Function Panel [facility] Work Phone: Start: 03-28-2014 End: 03-28-2014 Follow Up Appt 6 months Follow Up Appt 6 months [facility] Work Phone: Start: 03-28-2014 End: 03-29-2014 Lipid panel [AGGREGATE] *Lipid Profile CC PCP [facility] Work Phone: Start: 03-28-2014 End: 03-28-2014 MMM MMM [facility] Work Phone: Start: 03-28-2014 End: 03-29-2014 Thyroid stimulating hormone (TSH) *TSH [facility] Work Phone: Start: 03-28-2014 End: 03-29-2014 Thyroxine (T4) *T4 (Total) [facility] Work Phone: Start: 03-28-2014 End: 03-29-2014 *Hepatic Function Panel *Hepatic Function Panel [facility] Work Phone: Start: 03-28-2014 End: 03-28-2014 Follow Up Appt 6 months Follow Up Appt 6 months [facility] Work Phone: Start: 03-28-2014 End: 03-29-2014 Lipid panel [AGGREGATE] *Lipid Profile CC PCP [facility] Work Phone: Start: 03-28-2014 End: 03-28-2014 MMM MMM [facility] Work Phone: Start: 03-28-2014 End: 03-29-2014 Thyroid stimulating hormone (TSH) *TSH [facility] Work Phone: Start: 03-28-2014 End: 03-29-2014 Thyroxine (T4) *T4 (Total) [facility] Work Phone: Start: 12-21-2013 End: 12-21-2013 MULTIPLE CUT OFF SAW OPERATOR MULTIPLE CUT OFF SAW OPERATOR [facility] Work Phone: Start: 12-21-2013 End: 12-21-2013 Follow Up Appt 3 months Follow Up Appt 3 months [facility] Work Phone: Start: 12-21-2013 End: 12-21-2013 MULTIPLE CUT OFF SAW OPERATOR MULTIPLE CUT OFF SAW OPERATOR [facility] Work Phone: Start: 12-21-2013 End: 12-21-2013 Follow Up Appt 3 months Follow Up Appt 3 months [facility] Work Phone: Start: 12-07-2013 End: 12-20-2013 *CBC with Differential *CBC with Differential [facility] Work Phone: Start: 12-07-2013 End: 12-07-2013 Cardiac Rehab Cardiac Rehab [facility] Work Phone: Start: 12-07-2013 End: 12-07-2013 Ecg routine ecg w/least 12 lds w/i&r EKG (In office) [facility] Work Phone: Start: 12-07-2013 End: 12-07-2013 Follow up Appt 3 weeks Follow up Appt 3 weeks [facility] Work Phone: Start: 12-07-2013 End: 12-07-2013 MMM MMM [facility] Work Phone: Start: 12-07-2013 End: 12-20-2013 *CBC with Differential *CBC with Differential [facility] Work Phone: Start: 12-07-2013 End: 12-07-2013 Cardiac Rehab Cardiac Rehab [facility] Work Phone: Start: 12-07-2013 End: 12-07-2013 Electrocardiogram, complete EKG (In office) [facility] Work Phone: Start: 12-07-2013 End: 12-07-2013 Follow up Appt 3 weeks Follow up Appt 3 weeks [facility] Work Phone: Start: 12-07-2013 End: 12-07-2013 MMM MMM [facility] Work Phone: Start: 11-18-2013 End: 11-18-2013 *BMP *BMP [facility] Work Phone: Start: 11-18-2013 End: 11-18-2013 CBC W Auto Differential panel - Blood *CBC without Diff [facility] Work Phone: Start: 11-18-2013 End: 11-21-2013 Chest x-ray X-Ray, Chest, PA & Lateral [facility] Work Phone: Start: 11-18-2013 End: 11-18-2013 Ecg routine ecg w/least 12 lds w/i&r EKG (In office) [facility] Work Phone: Start: 11-18-2013 End: 11-18-2013 Follow Up Appt 3 months Follow Up Appt 3 months [facility] Work Phone: Start: 11-18-2013 End: 11-18-2013 INR Coag RelTime (PPP) *PT/INR [facility] Work Phone: Start: 11-18-2013 End: 11-18-2013 Left & Right Heart Cath Left & Right Heart Cath [facility] Work Phone: Start: 11-18-2013 End: 11-18-2013 MMM MMM [facility] Work Phone: Start: 11-18-2013 End: 11-18-2013 *BMP *BMP [facility] Work Phone: Start: 11-18-2013 End: 11-18-2013 CBC W Auto Differential panel - Blood *CBC without Diff [facility] Work Phone: Start: 11-18-2013 End: 11-21-2013 Chest x-ray X-Ray, Chest, PA & Lateral [facility] Work Phone: Start: 11-18-2013 End: 11-18-2013 Coagulation factor induced.INR assay in platelet poor plasma *PT/INR [facility] Work Phone: Start: 11-18-2013 End: 11-18-2013 Electrocardiogram, complete EKG (In office) [facility] Work Phone: Start: 11-18-2013 End: 11-18-2013 Follow Up Appt 3 months Follow Up Appt 3 months [facility] Work Phone: Start: 11-18-2013 End: 11-18-2013 Left & Right Heart Cath Left & Right Heart Cath [facility] Work Phone: Start: 11-18-2013 End: 11-18-2013 MMM MMM [facility] Work Phone: Start: 07-11-2013 End: 07-11-2013 MULTIPLE CUT OFF SAW OPERATOR MULTIPLE CUT OFF SAW OPERATOR [facility] Work Phone: Start: 07-11-2013 End: 07-11-2013 Follow Up Appt 6 months Follow Up Appt 6 months [facility] Work Phone: Start: 07-11-2013 End: 07-11-2013 MULTIPLE CUT OFF SAW OPERATOR MULTIPLE CUT OFF SAW OPERATOR [facility] Work Phone: Start: 07-11-2013 End: 07-11-2013 Follow Up Appt 6 months Follow Up Appt 6 months [facility] Work Phone: Start: 04-06-2013 End: 04-06-2013 Follow Up Appt 3 months Follow Up Appt 3 months [facility] Work Phone: Start: 04-06-2013 End: 04-06-2013 MMM MMM [facility] Work Phone: Start: 04-06-2013 End: 04-06-2013 Nuclear stress test -adenosine Nuclear stress test -adenosine [facility] Work Phone: Start: 04-06-2013 End: 04-06-2013 Follow Up Appt 3 months Follow Up Appt 3 months [facility] Work Phone: Start: 04-06-2013 End: 04-06-2013 MMM MMM [facility] Work Phone: Start: 04-06-2013 End: 04-06-2013 Nuclear stress test -adenosine Nuclear stress test -adenosine [facility] Work Phone: Start: 2000 BONE DENSITY BONE DENSITY [facility] Start: 2000 PNEUMOVAX AGE 65 AND OVER WITH 5YR LOOKBACK (#1) PNEUMOVAX AGE 65 AND OVER WITH 5YR LOOKBACK (#1) [facility] Start: 1985 SHINGRIX VACCINE (1 of 2) SHINGRIX VACCINE (1 of 2) [facility] Start: 1954 Urine microalbumin profile DTAP,TDAP,TD (1 - Tdap) [facility] Start: 1940 COVID-19 VACCINE (1) COVID-19 VACCINE (1) [facility] Patient Education [facility] Work Phone: Social History Date Type Detail Facility Start: 09-03-2016 Tobacco smoking status NHIS Never sm oked tobacco [facility] Start: 1935 Sex Assigned At Not on file [facility] Summary Purpose Family History No Family [...] or prosecute any alcohol or drug abuse patient.[facility] Care Teams (unrecognized sec tion and [...] BE BASED ON THE PRIMARY CLINICAL RECORDS. [facility]. provides no warranty or guarantee of the accuracy or completeness of information in this document.
[2023-10-11 15:02] VITALS: BP 119/77; PULSE 81; RESP 13; O2SAT 95
== END 2023-10-11 15:25 | disposition home or self-care (01) ==
PROVIDERS: Emergency Provider Emergency Medicine; PCP Family Medicine Geriatric Medicine; Visit Provider Emergency Medicine
DX: R00.2 Palpitations (principal); J44.9 Chronic obstructive pulmonary disease, unspecified; I48.0 Paroxysmal atrial fibrillation; I25.10 Atherosclerotic heart disease of native coronary artery without angina pectoris; I10 Essential (primary) hypertension; E78.5 Hyperlipidemia, unspecified; I25.2 Old myocardial infarction; I5A Non-ischemic myocardial injury (non-traumatic); K21.9 Gastro-esophageal reflux disease without esophagitis; Z79.899 Other long term (current) drug therapy; E03.9 Hypothyroidism, unspecified; Z90.49 Acquired absence of other specified parts of digestive tract; Z95.5 Presence of coronary angioplasty implant and graft; Z90.710 Acquired absence of both cervix and uterus
CPT/HCPCS: 71045; 80048; 84484; 85025; 85610; 93005; 96360; 99284; J7030

== ENCOUNTER → 2023-10-21 | Outpatient (CLI) | payer MEDICARE, OTHER, SELFPAY ==
--- NOTE | 2023-10-21 10:01 | ECHOD_ITS ---
Reason For Study: PAF Procedure This was a 2D Doppler, Color Flow transthoracic echocardiogram. Exam performed in department. Left Ventricle Normal LV size. Mild eccentric left ventricular hypertrophy. Left ventricular systolic function is normal. The estimated ejection fraction is 60 %. Unable to assess diastolic dysfunction due to arrhythmia. No regional wall motion abnormalities noted. Right Ventricle Normal RV size. Normal systolic function. Atria There is moderate biatrial dilatation. Mitral Valve Mild diffuse mitral valve thickening. Moderate mitral annular calcification. There is no mitral valve stenosis. Mild-Moderate (1-2+) mitral valve insufficiency. Tricuspid Valve Normal tricuspid valve. Mild (1+) tricuspid valve insufficiency. Right ventricular systolic pressure estimated to be 42 mmHg. Mild pulmonary hypertension. Aortic Valve Trisinus/trileaflet aortic valve. Pulmonic Valve The pulmonic valve is not well visualized. Great Vessels Normal aortic root. Pericardium/Pleural Trivial pericardial effusion. There are no echocardiographic indications of cardiac tamponade. MMode/2D Measurements & Calculations LVIDd: 4.3 cm IVSd: 0.95 cm Ao root diam: 3.1 cm LVIDs: 3.0 cm LVPWd: 1.2 cm RVDd: 3.5 cm FS: 30.5 % LAV(MOD-bp): 55.8 ml LVAd ap4: 21.6 cm2 LVAd ap2: 22.0 cm2 LAV(MOD-bp) Indexed: 25.9 ml/m2 LVLd ap4: 6.8 cm LVLd ap2: 7.0 cm LAV(MOD-sp2): 51.9 ml EDV(MOD-sp4): 58.3 ml EDV(MOD-sp2): 58.7 ml LAV(MOD-sp4): 58.3 ml EDV(sp4-el): 58.6 ml EDV(sp2-el): 58.9 ml LVAs ap4: 12.7 cm2 LVAs ap2: 13.3 cm2 LVLs ap4: 5.7 cm LVLs ap2: 5.9 cm ESV(MOD-sp4): 24.5 ml ESV(MOD-sp2): 25.5 ml ESV(sp4-el): 24.1 ml ESV(sp2-el): 25.2 ml EF(MOD-sp4): 58.0 % EF(MOD-sp2): 56.6 % EF(sp4-el): 58.9 % SV(MOD-sp4): 33.8 ml SV(MOD-sp2): 33.3 ml SV(sp4-el): 34.5 ml LA dimension(2D): 4.0 cm LA A4 area: 20.8 cm2 RA A4 area: 19.2 cm2 TAPSE: 2.2 cm Doppler Measurements & Calculations MV E max reji: 137.2 cm/sec Lat Peak E' Reji: 9.2 cm/sec Med Peak E' Reji: 11.1 cm/sec E/E' lat: 14.9 E/E' med: 12.4 MV V2 max: 116.3 cm/sec MV P1/2t max reji: 113.2 cm/sec Ao V2 max: 139.0 cm/sec MV max P.4 mmHg MV P1/2t: 84.8 msec Ao max P.7 mmHg MV V2 mean: 66.3 cm/sec MV dec slope: 391.2 cm/sec2 Ao V2 mean: 97.0 cm/sec MV mean P.1 mmHg Ao mean P.3 mmHg MV V2 VTI: 21.8 cm MVA(P1/2t): 2.6 cm2 Ao V2 VTI: 30.2 cm AV (velocity ratio): 0.72 LV V1 max: 100.4 cm/sec PA V2 max: 78.2 cm/sec TR max reji: 312.2 cm/sec LV V1 max P.0 mmHg TR max P.0 mmHg LV V1 mean P.4 mmHg LV V1 mean: 73.8 cm/sec LV V1 VTI: 21.6 cm ECHO/Echo Complete Interpretation Summary The estimated ejection fraction is 60 %. Unable to assess diastolic dysfunction due to arrhythmia. There is moderate biatrial dilatation. Moderate mitral annular calcification. Mild diffuse mitral valve thickening. Mild-Moderate (1-2+) mitral valve insufficiency. Mild (1+) tricuspid valve insufficiency. Mild pulmonary hypertension. Ordering Physician: Sergey Miller Referring Physician: Aditya Hope Chi Performed By: Alfreda Stein, RDJELLY
== END | disposition home or self-care (01) ==
LOC: CVS 10:00
PROVIDERS: PCP Family Medicine Geriatric Medicine; Referring Provider Internal Medicine Cardiovascular Disease; Visit Provider Internal Medicine Cardiovascular Disease
DX: I48.0 Paroxysmal atrial fibrillation (principal)
CPT/HCPCS: 93306

== ENCOUNTER 2023-11-01 18:42 | Inpatient (IN) | payer MEDICARE, OTHER, SELFPAY ==
[2023-11-01] VITALS (8 sets, daily range): BP systolic 129–157; BP diastolic 57–72; PULSE 82–112; RESP 16–20; TEMP 37.1–37.4; O2SAT 90–94; BMI 44.7; BMI 43.2
--- NOTE | 2023-11-01 18:56 | EKG12_ITS ---
Test Reason : DYSRHYTHMIA Blood Pressure : / mmHG Vent. Rate : 107 BPM Atrial Rate : 107 BPM P-R Int : 200 ms QRS Dur : 094 ms QT Int : 336 ms P-R-T Axes : [phone] degrees QTc Int : 448 ms Sinus tachycardia with Premature atrial complexes Otherwise normal ECG Baseline artifact Confirmed by Sergey Miller ([id number]), legal editor OWEN WILDER ([id number]) on 11/03/2023 9:25:22 AM Referred By: Confirmed By:Sergey Miller
[2023-11-01 19:14] LABS: Absolute Neutrophil Count 11.6 X10^3/uL (2.0-7.7); Basophil# 0.08 X10^3/uL; Basophil% 0.5 % (0-1); Eosinophil# 0.29 X10^3/uL; Hematocrit 36.2 % (37-47); Hemoglobin 11.6 g/dL (12.0-15.0); Lymphocyte % 8.9 % (19-41); Mean Corpuscular Hgb 31.8 pg (27.0-32.0); Mean Corpuscular Volume 99.2 fL (81-99); Mean Platelet Vol. 10.3 fl (6.2-12.0); Monocyte# 1.23 X10^3/uL; Monocyte% 8.4 % (0-10); NRBC Flagged by Analyzer 0 % (0-5); Neutrophil # 11.58 X10^3/uL (2.7-7.7); Neutrophil % 79.7 % (47-70); Platelet Count 245 K/mm3 (150-450); RBC Distribution Width CV 14.2 % (11.6-14.6); RBC Distribution Width SD 51.8 fl (35.1-43.9); Red Blood Count 3.65 M/mm3 (4.2-5.4); White Blood Count 14.6 K/mm3 (4.4-11.0)
--- OUTSIDE RECORDS SUMMARY | 2023-11-01 19:15 | XMS RPT_ITS | CCD ---
Author Name Unknown Address [address] [place] [address] Organization [facility] Care Team Providers Care Employee Relations Advisor Name Role Phone Cindy Brian Unavailable Unavailable MD Naya, Sonny Meza Unavailable Cindy Brian Unavailable Unavailable Aditya Hope Chi Primary Care Provider [phone] Allergies Allergy Classification Reported Allergen(s) Allergy Type Date of Onset Reaction(s) Facility (3 sources) ibuprofen drug allergy 04-06-2013 [facility] Work Phone: (4 sources) ibuprofen drug allergy 04-06-2013 Unknown [facility] Work Phone: Medications Completed/Discontinued Medications Medication Drug Class(es) Dates Sig (Normalized) Sig (Original) acetaminophen 325 mg / HYDROcodone bitartrate 5 mg oral tablet (10 sources) Opioid Agonist Start: 12-12-2016 NORCO 5-325 MG TABS as needed HYDROCODONE-ACETAMI NOPHEN [id number] Sonny Person MD Problems Active Problems Problem Classification Problem Date Documented Date Episodic/Chronic Cardiac dysrhythmias (3 sources) Paroxysmal tachycardia; Translations: [Paroxysmal tachycardia, unspecified] Onset: 09-27-2014 09-27-2014 Chronic Coronary atherosclerosis and other heart disease (3 sources) Atherosclerotic heart disease of [place] coronary artery without angina pectoris; Translations: [Atherosclerotic heart disease of [place] coronary artery without angina pectoris] Onset: 12-07-2013 [...] (2 sources) Long-term drug therapy; Translations: [Other [place] (current) drug therapy] Onset: 03-30-2014 08-22-2015 Unclassified (1 source) 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; 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] Onset: 02-20-2016 [...] Long-term (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 other medications; 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] Onset: 03-30-2014 03-30-2014 [...] 15:12-0400 Weight 102.51 kg Sonny Person MD [facility] Work Phone: 05-29-2016 10:04-0400 BSA (Body Surface Area) 2.08 m2 MD [facility] Work Phone: Encounters Encounter Date Encounter Type Care Provider Facility Start: 12-18-2021 End: 12-18-2021 Subsequent hospital visit by physician [facility] Provider David LYNN Procedures Date Procedure Procedure Detail Performing Clinician Start: 06-15-2017 End: 06-15-2017 PERSONAL DEVELOPMENT EDUCATOR Iveth Moctezuma PA-C Work Phone: Start: 06-15-2017 End: 06-15-2017 Follow Up Appt 6 months Iveth barfield PA-C Work Phone: Start: 06-15-2017 End: 06-15-2017 PERSONAL DEVELOPMENT EDUCATOR Iveth Moctezuma PA-C Work Phone: Start: 06-15-2017 End: 06-15-2017 Follow Up Appt 6 months Iveth barfield PA-C Work Phone: Start: 12-12-2016 End: 12-12-2016 Follow Up Appt 6 months Neftaly Abdi Start: 12-12-2016 End: 12-12-2016 EJ Person MD Start: 12-12-2016 End: 12-12-2016 Follow Up Appt 6 months Neftaly Abdi Start: 12-12-2016 End: 12-12-2016 EJ Person MD Start: 05-29-2016 End: 05-29-2016 PERSONAL DEVELOPMENT EDUCATOR Iveth Moctezuma PA-C Work Phone: Start: 05-29-2016 End: 05-29-2016 Ecg routine ecg w/least 12 lds w/i&r Iveth Moctezuma PA-C Work Phone: Start: 05-29-2016 End: 05-29-2016 Follow Up Appt 6 months Iveth barfield PA-C Work Phone: Start: 05-29-2016 End: 05-29-2016 PERSONAL DEVELOPMENT EDUCATOR Iveth Moctezuma PA-C Work Phone: Start: 05-29-2016 [...] PA-C Work Phone: Start: 09-27-2014 End: 09-27-2014 PERSONAL DEVELOPMENT EDUCATOR Iveth Moctezuma PA-C Work Phone: Start: 09-27-2014 [...] PA-C Work Phone: Start: 09-27-2014 End: 09-27-2014 PERSONAL DEVELOPMENT EDUCATOR Iveth Moctezuma PA-C Work Phone: Start: 09-27-2014 [...] PA-C Work Phone: Start: 12-21-2013 End: 12-21-2013 PERSONAL DEVELOPMENT EDUCATOR Iveth Moctezuma PA-C Work Phone: Start: 12-21-2013 [...] End: 12-07-2013 Follow up Appt 3 weeks Ivteh arnold PA-C Work Phone: Start: 12-07-2013 End: [...] EJ Person MD Start: 07-11-2013 End: 07-11-2013 PERSONAL DEVELOPMENT EDUCATOR Iveth Moctezuma PA-C Work Phone: Start: 07-11-2013 End: 07-11-2013 Follow Up Appt 6 months Iveth barfield PA-C Work Phone: Start: 07-11-2013 End: 07-11-2013 PERSONAL DEVELOPMENT EDUCATOR Iveth Moctezuma PA-C Work Phone: Start: 07-11-2013 [...] Hospital Start: 12-15-2017 End: 12-15-2017 Appointment Appointment [facility] Work Phone: Start: 06-15-2017 End: 06-15-2017 PERSONAL DEVELOPMENT EDUCATORJanae SKELTON [facility] Work Phone: Start: 06-15-2017 End: 06-15-2017 Follow Up Appt 6 months Follow Up Appt 6 months [facility] Work Phone: Start: 06-15-2017 End: 06-15-2017 Appointment Appointment [facility] Work Phone: Start: 06-15-2017 End: 06-15-2017 PERSONAL DEVELOPMENT EDUCATOR PERSONAL DEVELOPMENT EDUCATOR [facility] Work Phone: Start: 06-15-2017 End: 06-15-2017 Follow Up Appt 6 months Follow Up Appt 6 months [facility] Work Phone: Start: 12-12-2016 End: 12-12-2016 Follow Up Appt 6 months Follow Up Appt 6 months [facility] Work Phone: Start: 12-12-2016 End: 12-12-2016 MMM MMM [facility] Work Phone: Start: 12-12-2016 End: 12-12-2016 Follow Up Appt 6 months Follow Up Appt 6 months [facility] Work Phone: Start: 12-12-2016 End: 12-12-2016 MMM MMM [facility] Work Phone: Start: 11-26-2016 DIABETES SCREEN DIABETES SCREEN [facility] Start: 05-29-2016 End: 05-29-2016 PERSONAL DEVELOPMENT EDUCATOR COSTA [facility] Work Phone: Start: 05-29-2016 End: 05-29-2016 Ecg routine ecg w/least 12 lds w/i&r EKG (In office) [facility] Work Phone: Start: 05-29-2016 End: 05-29-2016 Follow Up Appt 6 months Follow Up Appt 6 months [facility] Work Phone: Start: 05-29-2016 End: 05-29-2016 PERSONAL DEVELOPMENT EDUCATOR PERSONAL DEVELOPMENT EDUCATOR [facility] Work Phone: Start: 05-29-2016 End: 05-29-2016 Electrocardiogram, complete EKG (In office) [facility] Work Phone: Start: 05-29-2016 End: 05-29-2016 Follow Up Appt 6 months Follow Up Appt 6 months [facility] Work Phone: Start: 02-21-2016 End: 02-21-2016 Follow Up Appt 3 months Follow Up Appt 3 months [facility] Work Phone: Start: 02-21-2016 End: 02-21-2016 MMM MMM [facility] Work Phone: Start: 02-21-2016 End: 02-21-2016 Follow Up Appt 3 months Follow Up Appt 3 months [facility] Work Phone: Start: 02-21-2016 End: 02-21-2016 MMM MMM [facility] Work Phone: Start: 08-22-2015 End: 08-22-2015 PERSONAL DEVELOPMENT EDUCATOR PERSONAL DEVELOPMENT EDUCATOR [facility] Work Phone: Start: 08-22-2015 End: 08-22-2015 Follow Up Appt 6 months Follow Up Appt 6 months [facility] Work Phone: Start: 08-22-2015 End: 08-22-2015 PERSONAL DEVELOPMENT EDUCATOR PERSONAL DEVELOPMENT EDUCATOR [facility] Work Phone: Start: 08-22-2015 End: 08-22-2015 Follow Up Appt 6 months Follow Up Appt 6 months [facility] Work Phone: Start: 07-20-2015 End: 06-03-2017 *Hepatic Function Panel *Hepatic Function Panel [facility] Work Phone: Start: 07-20-2015 End: 06-03-2017 Lipid panel [AGGREGATE] *Lipid Profile CC PCP [facility] Work Phone: Start: 07-20-2015 End: 06-03-2017 *Hepatic Function Panel *Hepatic Function Panel [facility] Work Phone: Start: 07-20-2015 End: 06-03-2017 Lipid panel [AGGREGATE] *Lipid Profile CC PCP [facility] Work Phone: Start: 05-16-2015 End: 05-16-2015 Xtrnl mobile cv telemetry w/i&report 30 days 30 Day Holter Monitor [facility] Work Phone: Start: 05-16-2015 End: 05-16-2015 Remote 30 day ecg rev/report 30 Day Holter Monitor [facility] Work Phone: Start: 05-15-2015 End: 05-15-2015 Ecg routine ecg w/least 12 lds w/i&r EKG (In office) [facility] Work Phone: Start: 05-15-2015 End: 05-15-2015 Follow Up Appt 3 months Follow Up Appt 3 months [facility] Work Phone: Start: 05-15-2015 End: 05-15-2015 MMM MMM [facility] Work Phone: Start: 05-15-2015 End: 05-15-2015 Nuclear stress test -Lexiscan Nuclear stress test -Lexiscan [facility] Work Phone: Start: 05-15-2015 End: 05-15-2015 Electrocardiogram, complete EKG (In office) [facility] Work Phone: Start: 05-15-2015 End: 05-15-2015 Follow Up Appt 3 months Follow Up Appt 3 months [facility] Work Phone: Start: 05-15-2015 End: 05-15-2015 MMM MMM [facility] Work Phone: Start: 05-15-2015 End: 05-15-2015 Nuclear stress test -Lexiscan Nuclear stress test -Lexiscan [facility] Work Phone: Start: 02-08-2015 End: 06-03-2017 Radex wrist complete minimum 3 views X-Ray, Wrist [facility] Work Phone: Start: 02-08-2015 End: 06-03-2017 X-ray exam of wrist X-Ray, Wrist [facility] Work Phone: Start: 01-02-2015 End: 01-18-2015 *Hepatic Function Panel *Hepatic Function Panel [facility] Work Phone: Start: 01-02-2015 End: 01-02-2015 Follow Up Appt 6 months Follow Up Appt 6 months [facility] Work Phone: Start: 01-02-2015 End: 01-18-2015 Lipid panel [AGGREGATE] *Lipid Profile CC PCP [facility] Work Phone: Start: 01-02-2015 End: 01-02-2015 MMM MMM [facility] Work Phone: Start: 01-02-2015 End: 01-18-2015 *Hepatic Function Panel *Hepatic Function Panel [facility] Work Phone: Start: 01-02-2015 End: 01-02-2015 Follow Up Appt 6 months Follow Up Appt 6 months [facility] Work Phone: Start: 01-02-2015 End: 01-18-2015 Lipid panel [AGGREGATE] *Lipid Profile CC PCP [facility] Work Phone: Start: 01-02-2015 End: 01-02-2015 MMM MMM [facility] Work Phone: Start: 09-27-2014 End: 10-11-2014 *CBC with Differential *CBC with Differential [facility] Work Phone: Start: 09-27-2014 End: 09-27-2014 24 hour holter monitor 24 hour holter monitor [facility] Work Phone: Start: 09-27-2014 End: 09-27-2014 PERSONAL DEVELOPMENT EDUCATOR PERSONAL DEVELOPMENT EDUCATOR [facility] Work Phone: Start: 09-27-2014 End: 09-27-2014 Ecg routine ecg w/least 12 lds w/i&r EKG (In office) [facility] Work Phone: Start: 09-27-2014 End: 09-27-2014 Follow Up Appt 3 months Follow Up Appt 3 months [facility] Work Phone: Start: 09-27-2014 End: 10-11-2014 Thyroid stimulating hormone (TSH) *TSH [facility] Work Phone: Start: 09-27-2014 End: 10-11-2014 Thyroxine (T4) *T4 (Total) [facility] Work Phone: Start: 09-27-2014 End: 10-11-2014 *CBC with Differential *CBC with Differential [facility] Work Phone: Start: 09-27-2014 End: 09-27-2014 24 hour holter monitor 24 hour holter monitor [facility] Work Phone: Start: 09-27-2014 End: 09-27-2014 PERSONAL DEVELOPMENT EDUCATOR PERSONAL DEVELOPMENT EDUCATOR [facility] Work Phone: Start: 09-27-2014 End: 09-27-2014 Electrocardiogram, complete EKG (In office) [facility] Work Phone: Start: 09-27-2014 End: 09-27-2014 Follow Up Appt 3 months Follow Up Appt 3 months [facility] Work Phone: Start: 09-27-2014 End: 10-11-2014 Thyroid stimulating hormone (TSH) *TSH [facility] Work Phone: Start: 09-27-2014 End: 10-11-2014 Thyroxine (T4) *T4 (Total) [facility] Work Phone: Start: 09-21-2014 End: 11-22-2014 *Hepatic Function Panel *Hepatic Function Panel [facility] Work Phone: Start: 09-21-2014 End: 11-22-2014 Lipid panel [AGGREGATE] *Lipid Profile CC PCP [facility] Work Phone: Start: 09-21-2014 End: 11-22-2014 *Hepatic Function Panel *Hepatic Function Panel [facility] Work Phone: Start: 09-21-2014 End: 11-22-2014 Lipid panel [AGGREGATE] *Lipid Profile CC PCP [facility] Work Phone: Start: 03-28-2014 End: 03-29-2014 *Hepatic Function Panel *Hepatic Function Panel [facility] Work Phone: Start: 03-28-2014 End: 03-28-2014 Follow Up Appt 6 months Follow Up Appt 6 months [facility] Work Phone: Start: 03-28-2014 End: 03-29-2014 Lipid panel [AGGREGATE] *Lipid Profile CC PCP [facility] Work Phone: Start: 03-28-2014 End: 03-28-2014 MMM MMM [facility] Work Phone: Start: 03-28-2014 End: 03-29-2014 Thyroid stimulating hormone (TSH) *TSH [facility] Work Phone: Start: 03-28-2014 End: 03-29-2014 Thyroxine (T4) *T4 (Total) [facility] Work Phone: Start: 03-28-2014 End: 03-29-2014 *Hepatic Function Panel *Hepatic Function Panel [facility] Work Phone: Start: 03-28-2014 End: 03-28-2014 Follow Up Appt 6 months Follow Up Appt 6 months [facility] Work Phone: Start: 03-28-2014 End: 03-29-2014 Lipid panel [AGGREGATE] *Lipid Profile CC PCP [facility] Work Phone: Start: 03-28-2014 End: 03-28-2014 MMM MMM [facility] Work Phone: Start: 03-28-2014 End: 03-29-2014 Thyroid stimulating hormone (TSH) *TSH [facility] Work Phone: Start: 03-28-2014 End: 03-29-2014 Thyroxine (T4) *T4 (Total) [facility] Work Phone: Start: 12-21-2013 End: 12-21-2013 PERSONAL DEVELOPMENT EDUCATOR PERSONAL DEVELOPMENT EDUCATOR [facility] Work Phone: Start: 12-21-2013 End: 12-21-2013 Follow Up Appt 3 months Follow Up Appt 3 months [facility] Work Phone: Start: 12-21-2013 End: 12-21-2013 PERSONAL DEVELOPMENT EDUCATOR PERSONAL DEVELOPMENT EDUCATOR [facility] Work Phone: Start: 12-21-2013 End: 12-21-2013 Follow Up Appt 3 months Follow Up Appt 3 months [facility] Work Phone: Start: 12-07-2013 End: 12-20-2013 *CBC with Differential *CBC with Differential [facility] Work Phone: Start: 12-07-2013 End: 12-07-2013 Cardiac Rehab Cardiac Rehab [facility] Work Phone: Start: 12-07-2013 End: 12-07-2013 Ecg routine ecg w/least 12 lds w/i&r EKG (In office) [facility] Work Phone: Start: 12-07-2013 End: 12-07-2013 Follow up Appt 3 weeks Follow up Appt 3 weeks [facility] Work Phone: Start: 12-07-2013 End: 12-07-2013 MMM MMM [facility] Work Phone: Start: 12-07-2013 End: 12-20-2013 *CBC with Differential *CBC with Differential [facility] Work Phone: Start: 12-07-2013 End: 12-07-2013 Cardiac Rehab Cardiac Rehab [facility] Work Phone: Start: 12-07-2013 End: 12-07-2013 Electrocardiogram, complete EKG (In office) [facility] Work Phone: Start: 12-07-2013 End: 12-07-2013 Follow up Appt 3 weeks Follow up Appt 3 weeks [facility] Work Phone: Start: 12-07-2013 End: 12-07-2013 MMM MMM [facility] Work Phone: Start: 11-18-2013 End: 11-18-2013 *BMP *BMP [facility] Work Phone: Start: 11-18-2013 End: 11-18-2013 CBC W Auto Differential panel - Blood *CBC without Diff [facility] Work Phone: Start: 11-18-2013 End: [...] Phone: Start: 11-18-2013 End: 11-18-2013 MMM MMM [facility] Work Phone: Start: 11-18-2013 End: 11-18-2013 *BMP *BMP [facility] Work Phone: Start: 11-18-2013 End: 11-18-2013 CBC W Auto Differential panel - Blood *CBC without Diff [facility] Work Phone: Start: 11-18-2013 End: 11-21-2013 Chest x-ray X-Ray, Chest, PA & Lateral [facility] Work Phone: Start: 11-18-2013 End: 11-18-2013 Coagulation factor induced.INR assay in platelet poor plasma *PT/INR [facility] Work Phone: Start: 11-18-2013 End: 11-18-2013 Electrocardiogram, complete EKG (In office) [facility] Work Phone: Start: 11-18-2013 End: 11-18-2013 Follow Up Appt 3 months Follow Up Appt 3 months [facility] Work Phone: Start: 11-18-2013 End: 11-18-2013 Left & Right Heart Cath Left & Right Heart Cath [facility] Work Phone: Start: 11-18-2013 End: 11-18-2013 MMM MMM [facility] Work Phone: Start: 07-11-2013 End: 07-11-2013 PERSONAL DEVELOPMENT EDUCATOR PERSONAL DEVELOPMENT EDUCATOR [facility] Work Phone: Start: 07-11-2013 End: 07-11-2013 Follow Up Appt 6 months Follow Up Appt 6 months [facility] Work Phone: Start: 07-11-2013 End: 07-11-2013 PERSONAL DEVELOPMENT EDUCATOR PERSONAL DEVELOPMENT EDUCATOR [facility] Work Phone: Start: 07-11-2013 End: 07-11-2013 Follow Up Appt 6 months Follow Up Appt 6 months [facility] Work Phone: Start: 04-06-2013 End: 04-06-2013 Follow Up Appt 3 months Follow Up Appt 3 months [facility] Work Phone: Start: 04-06-2013 End: 04-06-2013 MMM MMM [facility] Work Phone: Start: 04-06-2013 End: 04-06-2013 Nuclear stress test -adenosine Nuclear stress test -adenosine [facility] Work Phone: Start: 04-06-2013 End: 04-06-2013 Follow Up Appt 3 months Follow Up Appt 3 months [facility] Work Phone: Start: 04-06-2013 End: 04-06-2013 MMM MMM [facility] Work Phone: Start: 04-06-2013 End: 04-06-2013 Nuclear stress test -adenosine Nuclear stress test -adenosine [facility] Work Phone: Start: 2000 BONE [...] VACCINE (1) [facility] Patient Education [facility] Work Phone: Social History Date Type Detail Facility Start: 09-03-2016 Tobacco smoking status NHIS Never sm oked tobacco [facility] Start: 1935 Sex Assigned At Not on file [facility] Summary Purpose Family History No Family [...] BE BASED ON THE PRIMARY CLINICAL RECORDS. [facility]. provides no warranty or guarantee of the accuracy or completeness of information in this document.
[2023-11-01 19:19] LABS: Bacteria 0 SEEN /hpf (None Seen); Mucous, Urine 0 SEEN /hpf (<or=2+); Red Blood Cells-Urine 0 SEEN /hpf (0-5); Squamous Epithelial Cells - UA 0 SEEN /hpf (5-10); White Blood Cells 0 SEEN /hpf (0-5)
[2023-11-01 19:20] LABS: Color, Urine Yellow (Yellow); Glucose, Dipstick Normal (Normal); Ketone-Dipstick Negative (Negative); Leukocyte Esterase-Dipstick Negative /ul (Negative); Nitrite-Dipstick Negative (Negative); Occult Blood-Urine Negative /ul (Negative); Protein-Dipstick Negative (Negative); Urine Bilirubin Dipstick Negative (Negative); Urine Clarity Clear (Clear); Urine Urobilinogen Normal (Normal); Urine pH 6.5 (5.0 - 8.0)
--- NOTE | 2023-11-01 19:20 | RAD_ITS ---
STUDY: XR Chest 1 View 11/01/2023 7:20 PM REASON FOR EXAM: Female, 88 years old. sob COMPARISON: 10.11.23 TECHNIQUE: XR Chest 1 View FINDINGS: There is no demonstrated pleural abnormality. There is bilateral infiltrate / atelectasis. Normal heart size. Normal mediastinum. Normal dean. Prominent appearing increased interstitial lung markings. Normal visualized pulmonary arteries. There is atherosclerotic calcification of the aortic arch with tortuosity. There are diffuse degenerative changes of the visualized thoracic spine. There is degenerative osteoarthritis of the bilateral shoulders. There are no acute findings of the upper abdomen. RAD/Chest 1 View (Portable) IMPRESSION: Bilateral pneumonia. Electronically Signed: Hemanth Sharp MD at 20:06 EST ,
[2023-11-01 19:23] LABS: International Normalized Ratio 2.9
[2023-11-01 19:25] LABS: Partial Thromboplast Time 45.3 Seconds (24.1-36.2)
[2023-11-01 19:36] LABS: ALB/GLOB Ratio 1.1 RATIO (0.9-2.4); AST(SGOT) 10 U/L (15-37); Alanine Aminotransfer ALT/SGPT 14 U/L (13-56); Albumin, Serum 3.4 g/dL (3.2-5.0); Alkaline Phosphatase 117 U/L (45-117); Anion Gap 5 (5-15); BUN 22 mg/dL (7-18); BUN/Creat Ratio 21.6 RATIO (10-20); Calcium,Total 10.1 mg/dL (8.5-10.1); Chloride 106 mmol/L (98-107); Creatinine, Serum 1.02 mg/dL (0.55-1.02); EST Glomerular Filtration Rate 54 mL/min (>60); Est Glom Filt Rate - Afr Amer 66 mL/min (>60); Estimated Creatinine Clearance 48.21 ml/min; Glucose 146 mg/dL (74-106); Potassium 3.5 mmol/L (3.5-5.1); Protein, Total 6.4 g/dL (6.4-8.2); Sodium Level 142 mmol/L (136-145); Troponin-I HS 16 pg/mL (3.0-54.0)
[2023-11-01 19:46] LABS: Lactic Acid 1.2 mmol/L (0.4-1.9)
[2023-11-01] MEDS: Ipratropium/Albuterol Sulfate 3 ML AMPUL.NEB INHALATION (19:53)
[2023-11-01 20:16] LABS: BNP,B-Type NATRIURETIC PEPTIDE 116.6 pg/mL (0-100)
--- NOTE | 2023-11-01 20:21 | ED.VIS.DYS ---
HPI History of Present Illness Chief Complaint: Shortness of Breath Informant: patient Narrative Narrative: Patient is an 88-year-old female with history of COPD, coronary artery disease, hypertension, hyperlipidemia, proximal A-fib (on Coumadin) and CHF as well as hypothyroid presenting for worsening shortness of breath. Patient states that she has been having worsening respiratory symptoms over the past week but is really been bad over the past day or 2. She currently lives at the [facility] and is in assisted living. She called 911 herself today. She did have a negative COVID test 2 days ago. She states that she is continue to have a cough and had yellow mucus production today. At facility was reported to have a temperature of 101.4. Was 85% on room air when EMS arrived. Was placed on 2 L of oxygen. Did receive a DuoNeb and route. Patient states he has chronic swelling of her legs which she feels has been slightly worse. No other complaints or concerns at this time. [facility] Medical History Atherosclerotic heart disease of [place] coronary artery without angina pectoris Chest pain COPD (chronic obstructive pulmonary disease) DDD (degenerative disc disease), lumbar Dyspnea on exertion Essential hypertension Fatigue GERD (gastroesophageal reflux disease) Hyperlipidemia Hypertension Hypothyroid FPC current use of anticoagulant FPC use of drug Non-STEMI (non-ST elevated myocardial infarction) ADAIR (obstructive sleep apnea) Palpitations Paroxysmal atrial fibrillation Paroxysmal tachycardia Pulmonary embolism Secondary pulmonary arterial hypertension Segmental and somatic dysfunction of lumbar region Segmental and somatic dysfunction of pelvic region Segmental and somatic dysfunction of thoracic region Syncope and collapse Thoracic aortic aneurysm VTE (venous thromboembolism) Home Medications ascorbic acid (vitamin C) 500 mg tablet 500 mg PO DAILY supplement 05/12/17 [History Last Taken 09/13/18] allopurinol 100 mg tablet 100 mg PO DAILYCM gout 09/13/18 [History Last Taken 09/13/18] cyanocobalamin (vitamin B-12) 1,000 mcg capsule 1,000 mcg PO DAILY 09/13/18 [History Last Taken 09/12/18] methenamine hippurate 1 gram tablet 1 gm PO BID 09/13/18 [History Last Taken 09/13/18] furosemide 40 mg tablet 80 mg PO BID water pill 06/20/20 [History Last Taken Unknown] icosapent ethyl 1 gram capsule (Vascepa) 2 g PO BID 06/20/20 [History Last Taken Unknown] esomeprazole magnesium 40 mg capsule,delayed release 40 mg PO DAILY 03/28/21 [History Last Taken Unknown] levothyroxine 88 mcg tablet 88 mcg PO DAILY 03/28/21 [History Last Taken Unknown] mirabegron 50 mg tablet,extended release 24 hr (Myrbetriq) 50 mg PO DAILY 03/28/21 [History Last Taken Unknown] linaclotide 145 mcg capsule (Linzess) 145 mcg PO DAILY PRN PRN Constipation 12/15/21 [History Last Taken Unknown] nitroglycerin 0.4 mg sublingual tablet 0.4 mg sublingual PRN PRN Chest Pain 12/15/21 [History Last Taken Unknown] acetaminophen 325 mg tablet (Tylenol) 650 mg (2 x 325 mg) PO Q6H PRN PRN Pain Score 1-10/Temp > 100.7 F #0 tabs 12/17/21 [Rx Last Taken Unknown] benzonatate 100 mg capsule 100 mg PO Q4H PRN PRN Cough #0 caps 12/17/21 [Rx Last Taken Unknown] potassium chloride 20 mEq tablet,extended release 40 meq PO TID 01/07/22 [History Last Taken Unknown] amlodipine 5 mg tablet See Rx Instructions .Route .COMPLEX #28 tabs 03/19/23 [Rx Last Taken Unknown] isosorbide mononitrate 60 mg tablet,extended release 24 hr See Rx Instructions .Route .COMPLEX #28 TABLETS 03/19/23 [Rx Last Taken Unknown] metoprolol tartrate 50 mg tablet 50 mg PO BID #60 tabs 03/19/23 [Rx Last Taken Unknown] diltiazem HCl 60 mg tablet 60 mg PO .Q12 10/11/23 [History Last Taken Unknown] ipratropium bromide 42 mcg (0.06 %) nasal spray 2 spray intranasal DAILY 10/11/23 [History Last Taken Unknown] warfarin 2.5 mg tablet 2.5 mg PO DAILY 10/11/23 [History Last Taken Unknown] aspirin 81 mg tablet,delayed release (Adult Aspirin Regimen) 81 mg PO DAILY 10/21/23 [History Last Taken Unknown] chlorthalidone 25 mg tablet 12.5 mg PO DAILY 10/21/23 [History Last Taken Unknown] sildenafil (pulm.hypertension) 20 mg tablet 20 mg PO TID 10/21/23 [History Last Taken Unknown] ipratropium 0.5 mg-albuterol 3 mg (2.5 mg base)/3 mL nebulization soln 3 ml inhalation Q6H.RT PRN shortness of breath 11/01/23 [History Last Taken Unknown] isosorbide dinitrate 30 mg tablet 60 mg PO DAILY 11/01/23 [History Last Taken Unknown] Allergy/AdvReac Type Severity Reaction Status Date / Time ibuprofen Allergy Unknown Verified 10/21/23 09:03 chlorthalidone AdvReac Intermediate Really Verified 10/21/23 09:03 dizzy and lightheaded Family History Father Myocardial infarction hx black lung Mother CHF (congestive heart failure) Sister CAD (coronary artery disease) Hx CABG Myocardial infarction Diabetes CHF (congestive heart failure) Brother FH: ALS (amyotrophic lateral sclerosis) Brother pacemaker Surgical History History of appendectomy History of colonoscopy History of coronary artery stent placement (11/2013) History of dilation and curettage History of hysterectomy History of left heart catheterization (07/20/20) Social History housing: assisted Smoking Status: Never smoker alcohol intake: never substance use type: does not use diet: low salt caffeine: No what type of physical activity do you participate in: none seatbelt use: always do you feel safe at home: Yes ROS ROS ED Constitutional Constitutional ED: Reports chills and fever(s) Eyes Eyes: Denies blurry vision ENT ENT ED: Denies sore throat Cardiovascular Cardiovascular: Denies chest pain Respiratory/Chest Respiratory/Chest: Reports cough, dyspnea and sputum Gastrointestinal Gastrointestinal: Reports nausea; Denies abdominal pain or vomiting Musculoskeletal Musculoskeletal: Denies arthralgias or myalgias Integumentary Denies rash Neurologic Neurologic: Reports weakness; Denies headache(s) Hematologic/Lymphatic Hematologic/Lymphatic: Reports easy bleeding and easy bruising EXAM Physical Exam Const Vital Signs: 11/01/23 18:50 11/01/23 19:00 11/01/23 19:01 Temperature 99.3 F H Temperature Source Oral Pulse Rate 112 H Respiratory Rate 20 H Respiratory Effort Normal Non-Labored Respiratory Depth Normal Respiratory Pattern Normal Blood Pressure 157/57 H Blood Pressure Mean 90 Pulse Ox 93 Oxygen Delivery Method Nasal Cannula Nasal Cannula Oxygen Flow Rate (L/min) 2 2 11/01/23 19:54 Temperature Temperature Source Pulse Rate 104 H Respiratory Rate 18 Respiratory Effort Respiratory Depth Respiratory Pattern Normal Blood Pressure Blood Pressure Mean Pulse Ox Oxygen Delivery Method Oxygen Flow Rate (L/min) Positive well nourished, well developed and obese General Appearance ED: well developed Nutritional Appearance: obese HEENT Reports dry mucous membranes Mouth ED: Yes dry mucous membranes Mouth: dry mucous membranes Eyes PERRL Neck supple and no JVD Resp Resp Narrative: Scattered and expiratory wheezing present. Diminished breath sounds at the bases. Mild tachypneic. Cardio regular rhythm and no murmurs Rate: tachycardic GI non-tender and non-distended Extremity Extremity Narrative: Chronic appearing lymphedema of the lower extremities. General Extremety ED: Yes edema General Extremity: edema Neuro oriented x3 Sensorium / Orientation: alert Motor Exam: general weakness Psych mental status grossly normal Skin no wounds MDM MDM MDM Narrative Medical decision making narrative: Patient is evaluated for worsening shortness of breath. Symptoms really worsened today. She was hypoxic for EMS and has not required supplemental oxygen. Patient is ill-appearing but nontoxic. Differential is broad including CHF exacerbation, viral syndrome such as influenza or COVID, pneumonia and COPD exacerbation. When she does have chronic. Lipidemia she does not appear acutely fluid overloaded. Will hold off on IV fluids at this time as she is hypertensive and does not need emergent fluid resuscitation. Patient is tachycardic with a low-grade temperature upon arrival. She is given Tylenol in the ER. Patient is given additional DuoNeb in the emergency room. Patient does have a leukocytosis history significant of 14.6. She is mildly anemic with a hemoglobin of 11.6. She is therapeutic with her INR 2.9. CMP largely normal. BNP at her baseline and her troponin is normal. Urinalysis is not consistent with infection. Lactate is normal at 1.2. Patient does not have markers for severe sepsis or septic shock. Single view chest x-ray reviewed by myself as well as radiology does shows bilateral pneumonia. This is consistent with her clinical presentation. Patient started on broad-spectrum antibiotics, Rocephin and azithromycin. Given her increased work of breathing, acute pneumonia, sepsis and new O2 requirement will be admitted for further treatment. Patient is agreeable this plan of care. Case discussed with my physician, Dr. Her. History & Record Review Additional record(s) reviewed:: Prior outpatient record (Cardiology visit from 10/21/2023-history of pulmonary hypertension, ADAIR, coronary artery disease with stents and hypertension as well as longstanding but significant bilateral lower extremity edema.) Lab Data Attestation: I reviewed the patient's lab results. Labs: Laboratory Results - last 24 hr 11/01/23 11/01/23 19:05 19:15 WBC 14.6 H RBC 3.65 L Hgb 11.6 L Hct 36.2 L MCV 99.2 H MCH 31.8 MCHC 32.0 RDW Std Deviation 51.8 H RDW Coeff of Robbi 14.2 Plt Count 245 MPV 10.3 Immature Gran % (Auto) 0.500 Neut % (Auto) 79.7 H Lymph % (Auto) 8.9 L [place] % (Auto) 8.4 Eos % (Auto) 2.0 Baso % (Auto) 0.5 Absolute Neuts (auto) 11.6 H Absolute Lymphs (auto) 1.30 Nucleated RBC % 0 PT 31.0 H INR 2.9 APTT 45.3 H Sodium 142 Potassium 3.5 Chloride 106 Carbon Dioxide 31.0 Anion Gap 5 BUN 22 H Creatinine 1.02 Estim Creat Clear Calc 48.21 Est GFR (MDRD) Af Amer 66 Est GFR (MDRD) Non-Af 54 L BUN/Creatinine Ratio 21.6 H Glucose 146 H Lactic Acid 1.2 Calcium 10.1 Magnesium 2.3 Total Bilirubin 0.70 AST 10 L ALT 14 Alkaline Phosphatase 117 Troponin I High Sens 16 B-Natriuretic Peptide 116.6 H Total Protein 6.4 Albumin 3.4 Globulin 3.0 Albumin/Globulin Ratio 1.1 Urine Color Yellow Urine Clarity Clear Urine pH 6.5 Ur Specific [place] 1.010 Urine Protein Negative Urine Glucose (UA) Normal Urine Ketones Negative Urine Occult Blood Negative Urine Nitrite Negative Urine Bilirubin Negative Urine Urobilinogen Normal Ur Leukocyte Esterase Negative Urine RBC 0 SEEN Urine WBC 0 SEEN Ur Squamous Epith Cells 0 SEEN Urine Bacteria 0 SEEN Urine Mucus 0 SEEN Radiography Chest X-Ray - ED: 1 View, 2 View, Read by Radiologist, Right Infiltrate and Left Infiltrate Diagnostic Testing: Clinical Impression(s) from Imaging Studies Chest X-Ray 11/01/23 19:20 IMPRESSION: Bilateral pneumonia. Electronically Signed: Hemanth Sharp MD at 20:06 EST , Rhythm Strip Rhythm Strip: Sinus Tach Rate: 107 Ectopy: None EKG Initial EKG: Attestation: I personally reviewed and interpreted this EKG as follows: Interpretation: Sinus Tachycardia Comments: Sinus tachycardia at a rate of 107 bpm with PACs Normal axis Normal intervals Normal ST segments Compared to prior EKG patient is now tachycardic Prior EKG tracings: available for review Prior: Changed Management Discussion w/another healthcare provider: Hospitalist Discharge Plan Dx/Rx/DC Orders Clinical Impression: Anticoagulant long-term use, Hypoxic, Pneumonia Disposition Disposition: Acute Care Hospital [facility] [place] Discharge Date/Time: 11/01/23 21:34
--- NOTE | 2023-11-01 20:38 | PCM.HP.STD ---
HPI - General General Date of Admission: 11/01/23 Date of Service: 11/01/23 Chief Complaint: Worsening shortness of breath cough and chest congestion for 2 days HPI Narrative PAULO MILLER, is a 88 F with multiple comorbidities emphysema follows [facility] Dr. Finn came to ED for worsening shortness of breath for about 2 days. She also has chest congestion, cough with thick sputum but not completely able to bring up, and shortness of breath. Sometimes she also gets mild to moderate sharp chest pain on cough but does not feel like [place]. She also complains of palpitation sometimes. Denies fever or chills. She has multiple Other comorbidities which include pulmonary hypertension, non-STEMI and recently recovered from A-fib with RVR. She has seen Dr. Finn couple weeks ago Chronic bilateral lower extremity swelling with edema/lymphedema. Limited walking/ambulation on walker from room to bathroom in assisted living center. Patient was tachycardic tachypneic on 2 L of oxygen in ED. Vitals reviewed. Twelve-lead EKG EKG and chest x-ray nasally reviewed. 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 Non-STEMI (non-ST elevated myocardial infarction) ADAIR (obstructive sleep apnea) Palpitations Paroxysmal atrial fibrillation Paroxysmal tachycardia Pulmonary embolism Secondary pulmonary arterial hypertension Segmental and somatic dysfunction of lumbar region Segmental and somatic dysfunction of pelvic region Segmental and somatic dysfunction of thoracic region Syncope and collapse Thoracic aortic aneurysm VTE (venous thromboembolism) Home Medications ascorbic acid (vitamin C) 500 mg tablet 500 mg PO DAILY supplement 05/12/17 [History Last Taken 09/13/18] allopurinol 100 mg tablet 100 mg PO DAILYCM gout 09/13/18 [History Last Taken 09/13/18] cyanocobalamin (vitamin B-12) 1,000 mcg capsule 1,000 mcg PO DAILY 09/13/18 [History Last Taken 09/12/18] methenamine hippurate 1 gram tablet 1 gm PO BID 09/13/18 [History Last Taken 09/13/18] furosemide 40 mg tablet 80 mg PO BID water pill 06/20/20 [History Last Taken Unknown] icosapent ethyl 1 gram capsule (Vascepa) 2 g PO BID 06/20/20 [History Last Taken Unknown] esomeprazole magnesium 40 mg capsule,delayed release 40 mg PO DAILY 03/28/21 [History Last Taken Unknown] levothyroxine 88 mcg tablet 88 mcg PO DAILY 03/28/21 [History Last Taken Unknown] mirabegron 50 mg tablet,extended release 24 hr (Myrbetriq) 50 mg PO DAILY 03/28/21 [History Last Taken Unknown] linaclotide 145 mcg capsule (Linzess) 145 mcg PO DAILY PRN PRN Constipation 12/15/21 [History Last Taken Unknown] nitroglycerin 0.4 mg sublingual tablet 0.4 mg sublingual PRN PRN Chest Pain 12/15/21 [History Last Taken Unknown] acetaminophen 325 mg tablet (Tylenol) 650 mg (2 x 325 mg) PO Q6H PRN PRN Pain Score 1-10/Temp > 100.7 F #0 tabs 12/17/21 [Rx Last Taken Unknown] benzonatate 100 mg capsule 100 mg PO Q4H PRN PRN Cough #0 caps 12/17/21 [Rx Last Taken Unknown] potassium chloride 20 mEq tablet,extended release 40 meq PO TID 01/07/22 [History Last Taken Unknown] amlodipine 5 mg tablet See Rx Instructions .Route .COMPLEX #28 tabs 03/19/23 [Rx Last Taken Unknown] isosorbide mononitrate 60 mg tablet,extended release 24 hr See Rx Instructions .Route .COMPLEX #28 TABLETS 03/19/23 [Rx Last Taken Unknown] metoprolol tartrate 50 mg tablet 50 mg PO BID #60 tabs 03/19/23 [Rx Last Taken Unknown] diltiazem HCl 60 mg tablet 60 mg PO .Q12 10/11/23 [History Last Taken Unknown] ipratropium bromide 42 mcg (0.06 %) nasal spray 2 spray intranasal DAILY 10/11/23 [History Last Taken Unknown] warfarin 2.5 mg tablet 2.5 mg PO DAILY 10/11/23 [History Last Taken Unknown] aspirin 81 mg tablet,delayed release (Adult Aspirin Regimen) 81 mg PO DAILY 10/21/23 [History Last Taken Unknown] chlorthalidone 25 mg tablet 12.5 mg PO DAILY 10/21/23 [History Last Taken Unknown] sildenafil (pulm.hypertension) 20 mg tablet 20 mg PO TID 10/21/23 [History Last Taken Unknown] ipratropium 0.5 mg-albuterol 3 mg (2.5 mg base)/3 mL nebulization soln 3 ml inhalation Q6H.RT PRN shortness of breath 11/01/23 [History Last Taken Unknown] isosorbide dinitrate 30 mg tablet 60 mg PO DAILY 11/01/23 [History Last Taken Unknown] Allergy/AdvReac Type Severity Reaction Status Date / Time ibuprofen Allergy Unknown Verified 10/21/23 09:03 chlorthalidone AdvReac Intermediate Really Verified 10/21/23 09:03 dizzy and lightheaded Family History Father Myocardial infarction hx black lung Mother CHF (congestive heart failure) Sister CAD (coronary artery disease) Hx CABG Myocardial infarction Diabetes CHF (congestive heart failure) Brother FH: ALS (amyotrophic lateral sclerosis) Brother pacemaker Surgical History History of appendectomy History of colonoscopy History of coronary artery stent placement (11/2013) History of dilation and curettage History of hysterectomy History of left heart catheterization (07/20/20) Social History housing: care home Smoking Status: Never smoker alcohol intake: never substance use type: does not use diet: low salt caffeine: No what type of physical activity do you participate in: none seatbelt use: always do you feel safe at home: Yes ROS ROS Narrative Constitutional: Reports fatigue and weakness. No fever. HEENT: Reports systems reviewed and no addt'l complaints, except as documented Respiratory/Chest: As described in HPI. Not on home oxygen. CVS: Mild pleuritic sharp chest pain could not describe well, detailed characteristics of the chest pain. Gastrointestinal: Denies coffee ground emesis, hematemesis or vomiting Genitourinary: Denies burning urination or new urinary tract symptoms Musculoskeletal: Chronic arthritis and muscle weakness. Denies acute joint pain or limited range of motion. No acute injury Neurologic: Denies seizure-like symptoms. skin: No ulcer. No rash Endocrinology: Reports systems reviewed and no addt'l complaints, except as documented Hematologic/Lymphatic: Reports systems reviewed and no addt'l complaints, except as documented Rest 14 ROS are negative except as mentioned in HPI Vital Signs Vital Signs Vital Signs: 11/01/23 18:50 11/01/23 19:00 11/01/23 19:01 Temperature 99.3 F H Temperature Source Oral Pulse Rate 112 H Respiratory Rate 20 H Respiratory Effort Normal Non-Labored Respiratory Depth Normal Respiratory Pattern Normal Blood Pressure 157/57 H Blood Pressure Mean 90 Pulse Ox 93 Oxygen Delivery Method Nasal Cannula Nasal Cannula Oxygen Flow Rate (L/min) 2 2 11/01/23 19:54 Temperature Temperature Source Pulse Rate 104 H Respiratory Rate 18 Respiratory Effort Respiratory Depth Respiratory Pattern Normal Blood Pressure Blood Pressure Mean Pulse Ox Oxygen Delivery Method Oxygen Flow Rate (L/min) Weight Weight: 260 lb 9.382 oz Body Mass Index (BMI) 44.7 Physical Exam Narrative General: Alert, Oriented x3, Cooperative. BMI 44.7 KG per square meter, morbid obesity HEENT: Atraumatic, PERRLA, EOMI, Normocephalic Oral: Oral mucosa dry. No Gingival or Mucosal Lesions/ Ulcerations Neck: Supple, No JVD, Negative Carotid Bruits Chest wall/Lungs: Air entry diminished in bilateral lung bases. Bilateral coarse crepitation and rhonchi. Cardiovascular: Regular rate, Regular Rhythm, Normal S1, Normal S2, No M/G/R Abdomen: Bowel Sounds Present, Soft, Non Tender, Non-Distended : No dysuria. No renal angle tenderness. No suprapubic tenderness. Extremities: Bilateral 3-4+ lower extremity lymphedema, chronic, Capillary Refill Less than 3 Seconds Skin: No rashes, No breakdown Musculoskeletal: Limited walking on walker. No Tenderness to Palpation of Joints or Extremities Neurological: Cranial nerves II-XII grossly intact, DTR 2+/4. No acute focal neurological deficit. Psych/Mental Status: Flat affect. Results Lab / Micro Data 11/01/23 19:05 11/01/23 19:05 Labs: Laboratory Results - last 24 hr 11/01/23 19:05: WBC 14.6 H, RBC 3.65 L, Hgb 11.6 L, Hct 36.2 L, MCV 99.2 H, MCH 31.8, MCHC 32.0, RDW Std Deviation 51.8 H, RDW Coeff of Robbi 14.2, Plt Count 245, MPV 10.3, Immature Gran % (Auto) 0.500, Neut % (Auto) 79.7 H, Lymph % (Auto) 8.9 L, [place] % (Auto) 8.4, Eos % (Auto) 2.0, Baso % (Auto) 0.5, Absolute Neuts (auto) 11.6 H, Absolute Lymphs (auto) 1.30, Nucleated RBC % 0, PT 31.0 H, INR 2.9, APTT 45.3 H, Sodium 142, Potassium 3.5, Chloride 106, Carbon Dioxide 31.0, Anion Gap 5, BUN 22 H, Creatinine 1.02, Estim Creat Clear Calc 48.21, Est GFR (MDRD) Af Amer 66, Est GFR (MDRD) Non-Af 54 L, BUN/Creatinine Ratio 21.6 H, Glucose 146 H, Lactic Acid 1.2, Calcium 10.1, Total Bilirubin 0.70, AST 10 L, ALT 14, Alkaline Phosphatase 117, Troponin I High Sens 16, B-Natriuretic Peptide 116.6 H, Total Protein 6.4, Albumin 3.4, Globulin 3.0, Albumin/Globulin Ratio 1.1 11/01/23 19:15: Urine Color Yellow, Urine Clarity Clear, Urine pH 6.5, Ur Specific [place] 1.010, Urine Protein Negative, Urine Glucose (UA) Normal, Urine Ketones Negative, Urine Occult Blood Negative, Urine Nitrite Negative, Urine Bilirubin Negative, Urine Urobilinogen Normal, Ur Leukocyte Esterase Negative, Urine RBC 0 SEEN, Urine WBC 0 SEEN, Ur Squamous Epith Cells 0 SEEN, Urine Bacteria 0 SEEN, Urine Mucus 0 SEEN Micro: Microbiology 11/01/23 19:10 Mucosa - Nasopharyngeal SARS-CoV-2, Influenza & RSV (PCR) - Final Imaging Radiology Impression Chest X-Ray 11/01/23 19:20 IMPRESSION: Bilateral pneumonia. Electronically Signed: Hemanth Sharp MD at 20:06 EST Reading Location ID and State: [facility] / [place] , Service support , Assessment & Plan Assessment/Plan (1) Pneumonia: (2) COPD exacerbation: PLAN: Plan This is a 88-year-old woman with multiple comorbidities admitted with worsening shortness of breath cough with sputum and mild respiratory distress on oxygen consistent with pneumonia 1. COPD exacerbation due to bilateral pneumonia, exact etiology unclear: [facility] Initial flow, RSV and SARS-CoV-2 PCR negative. Lactic acid normal. Labs shows leukocytosis with neutrophil 78%. Respiratory panel, sputum culture, blood cultures x 2 ordered. Patient started on IV ceftriaxone and azithromycin. Patient is being managed on scheduled bronchodilator, IV Solu-Medrol, Mucinex, incentive spirometry and Pep. Limited IV fluid normal saline with potassium supplement for 1 L. 2. Multiple chronic cardiac conditions: CAD with history of non-STEMI status post stent, paroxysmal A-fib on warfarin, chronic HFpEF, hypertension: Patient was last admitted in November 2021 for non-STEMI and influenza A. She follows [place] cardiology, Dr. Miller, last seen in September 2023. 2D echo September 2023 as mentioned below, EF 60% mild to moderate MR, mild TR moderate biatrial dilatation and mild pulmonary hypertension. Patient is on beta-billy, DVT IgM, nitrate continued. Maintain INR between 2-3, today 2.9. Patient on furosemide 80 mg twice daily continued. Hold chlorthalidone. BMP in acceptable limit. BNP 116. 3. Mild pulmonary hypertension, COPD and history of venous thromboembolism: Patient on amlodipine 5 5 mg daily and sildenafil continued. History of COPD but not on oxygen. Follows Dr. Finn. 4. Hypertension: Blood pressure is controlled. Continue medications as mentioned above. 5. GERD: On PPI continued. 6. History of gout: On allopurinol 7. Hypothyroidism: On levothyroxine. 8. CKD stage IIIa: BUNs/creatinine 22/1.02. Estimated creatinine clearance 48 mL/min VTE prophylaxis: Patient on warfarin. INR 2.9. Living will/advanced directive/end of life care: Patient does have living will or advanced directive. Her son near the bedside is a power of managed care analyst for health. After discussion of benefits/risks procedures involved with full code, DNR CC arrest and DNR CC, the patient and son opted for DNRCC arrest with no intubation Patient doesn't want artificial life support including intubation, tube feed, ventilator and/chest compression, central venous catheter, vasopressor and DC shock if needed Total time spent in [id number] encounter in discussion of advanced directive 17 minutes. Microbiology Past 72 Hours 11/01/23 19:10 Mucosa - Nasopharyngeal SARS-CoV-2, Influenza & RSV (PCR) - Final Laboratory Results 11/01/23 19:05: WBC 14.6 H, RBC 3.65 L, Hgb 11.6 L, Hct 36.2 L, MCV 99.2 H, MCH 31.8, MCHC 32.0, RDW Std Deviation 51.8 H, RDW Coeff of Robbi 14.2, Plt Count 245, MPV 10.3, Immature Gran % (Auto) 0.500, Neut % (Auto) 79.7 H, Lymph % (Auto) 8.9 L, [place] % (Auto) 8.4, Eos % (Auto) 2.0, Baso % (Auto) 0.5, Absolute Neuts (auto) 11.6 H, Absolute Lymphs (auto) 1.30, Nucleated RBC % 0, PT 31.0 H, INR 2.9, APTT 45.3 H, Sodium 142, Potassium 3.5, Chloride 106, Carbon Dioxide 31.0, Anion Gap 5, BUN 22 H, Creatinine 1.02, Estim Creat Clear Calc 48.21, Est GFR (MDRD) Af Amer 66, Est GFR (MDRD) Non-Af 54 L, BUN/Creatinine Ratio 21.6 H, Glucose 146 H, Lactic Acid 1.2, Calcium 10.1, Total Bilirubin 0.70, AST 10 L, ALT 14, Alkaline Phosphatase 117, Troponin I High Sens 16, B-Natriuretic Peptide 116.6 H, Total Protein 6.4, Albumin 3.4, Globulin 3.0, Albumin/Globulin Ratio 1.1 11/01/23 19:15: Urine Color Yellow, Urine Clarity Clear, Urine pH 6.5, Ur Specific [place] 1.010, Urine Protein Negative, Urine Glucose (UA) Normal, Urine Ketones Negative, Urine Occult Blood Negative, Urine Nitrite Negative, Urine Bilirubin Negative, Urine Urobilinogen Normal, Ur Leukocyte Esterase Negative, Urine RBC 0 SEEN, Urine WBC 0 SEEN, Ur Squamous Epith Cells 0 SEEN, Urine Bacteria 0 SEEN, Urine Mucus 0 SEEN Clinical Impression(s) from Imaging Studies Chest X-Ray 11/01/23 19:20 IMPRESSION: Bilateral pneumonia. 2D echo October 21, 2023 Interpretation Summary The estimated ejection fraction is 60 %. Unable to assess diastolic dysfunction due to arrhythmia. There is moderate biatrial dilatation. Moderate mitral annular calcification. Mild diffuse mitral valve thickening. Mild-Moderate (1-2+) mitral valve insufficiency. Mild (1+) tricuspid valve insufficiency. Mild pulmonary hypertension. Charges/Coding Visit Charges Inpatient E&M: 05717 Init Hosp L3 Procedures Hospitalists Procedures: 61659 Advncd Care Plan 30 Min
[2023-11-01] MEDS: 0.9% Normal Saline (1000mL) 1,000 ML 150 ML IV (20:54)
[2023-11-01] MEDS: Ceftriaxone 2 GM in 0.9% Normal Saline (50mL MB+) 50 ML IV (20:54)
--- OUTSIDE RECORDS SUMMARY | 2023-11-01 20:56 | XMS RPT_ITS | CCD ---
Author Name Unknown Address [address] [place] [address] Organization [facility] Care Team Providers Care Economic Manager Name Role Phone Cindy Brian Unavailable Unavailable MD Naya, Sonny Meza Unavailable Cindy Brian Unavailable Unavailable Aditya Hope Chi Primary Care Provider Allergies Allergy Classification Reported Allergen(s) Allergy Type Date of Onset Reaction(s) Facility (3 sources) ibuprofen drug allergy 04-06-2013 [facility] Work Phone: (4 sources) ibuprofen drug allergy 04-06-2013 Unknown [facility] Work Phone: Medications Completed/Discontinued Medications Medication Drug Class(es) Dates Sig (Normalized) Sig (Original) acetaminophen 325 mg / HYDROcodone bitartrate 5 mg oral tablet (10 sources) Opioid Agonist Start: 12-12-2016 NORCO 5-325 MG TABS as needed HYDROCODONE-ACETAMI NOPHEN [id number] Sonny Person MD Problems Active Problems Problem Classification Problem Date Documented Date Episodic/Chronic Cardiac dysrhythmias (3 sources) Paroxysmal tachycardia; Translations: [Paroxysmal tachycardia, unspecified] Onset: 09-27-2014 09-27-2014 Chronic Coronary atherosclerosis and other heart disease (3 sources) Atherosclerotic heart disease of [place] coronary artery without angina pectoris; Translations: [Atherosclerotic heart disease of [place] coronary artery without angina pectoris] Onset: 12-07-2013 [...] (2 sources) Long-term drug therapy; Translations: [Other mcc (current) drug therapy] Onset: 03-30-2014 08-22-2015 Unclassified (1 source) 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; 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] Onset: 02-20-2016 [...] Long-term (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 other medications; 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] Onset: 03-30-2014 [...] 15:12-0400 Weight 102.51 kg Sonny Person MD [facility] Work Phone: 05-29-2016 10:04-0400 BSA (Body Surface Area) 2.08 m2 MD [facility] Work Phone: Encounters Encounter Date Encounter Type Care Provider Facility Start: 12-18-2021 End: 12-18-2021 Subsequent hospital visit by physician [facility] Provider David LYNN Procedures Date Procedure Procedure Detail Performing Clinician Start: 06-15-2017 End: 06-15-2017 [employer] Iveth Moctezuma PA-C Work Phone: Start: 06-15-2017 End: 06-15-2017 Follow Up Appt 6 months Iveth barfield PA-C Work Phone: Start: 06-15-2017 End: 06-15-2017 [employer] Iveth Moctezuma PA-C Work Phone: Start: 06-15-2017 End: 06-15-2017 Follow Up Appt 6 months Iveth barfield PA-C Work Phone: Start: 12-12-2016 End: 12-12-2016 Follow Up Appt 6 months Neftaly Abdi Start: 12-12-2016 End: 12-12-2016 EJ Person MD Start: 12-12-2016 End: 12-12-2016 Follow Up Appt 6 months Neftaly Abdi Start: 12-12-2016 End: 12-12-2016 EJ Person MD Start: 05-29-2016 End: 05-29-2016 [employer] Iveth Moctezuma PA-C Work Phone: Start: 05-29-2016 End: 05-29-2016 Ecg routine ecg w/least 12 lds w/i&r Iveth Moctezuma PA-C Work Phone: Start: 05-29-2016 End: 05-29-2016 Follow Up Appt 6 months Iveth barfield PA-C Work Phone: Start: 05-29-2016 End: 05-29-2016 [employer] Iveth Moctezuma PA-C Work Phone: Start: 05-29-2016 [...] 11-21-2014 Documentation of current medications Nataly E Naayna Start: 11-20-2014 End: 11-21-2014 Smoking cessation education Nataly Kraus Start: 11-20-2014 End: 11-21-2014 Documentation of current medications Nataly E Frase Start: 11-20-2014 End: 11-21-2014 Smoking cessation education Nataly E Nayana Start: 09-27-2014 End: 10-11-2014 *CBC with Differential Iveth arnold PA-C Work Phone: Start: 09-27-2014 End: 10-11-2014 24 hour holter monitor Iveth arnold PA-C Work Phone: Start: 09-27-2014 End: 09-27-2014 [employer] Iveth Moctezuma PA-C Work Phone: Start: 09-27-2014 [...] PA-C Work Phone: Start: 09-27-2014 End: 09-27-2014 [employer] Iveth Moctezuma PA-C Work Phone: Start: 09-27-2014 [...] PA-C Work Phone: Start: 12-21-2013 End: 12-21-2013 [employer] Iveth Moctezuma PA-C Work Phone: Start: 12-21-2013 [...] Work Phone: Start: 12-07-2013 End: 12-07-2013 MM Ievth Moctezuma PA-C Work Phone: Start: 12-07-2013 End: [...] EJ Person MD Start: 07-11-2013 End: 07-11-2013 [employer] Iveth Moctezuma PA-C Work Phone: Start: 07-11-2013 End: 07-11-2013 Follow Up Appt 6 months Iveth barfield PA-C Work Phone: Start: 07-11-2013 End: 07-11-2013 [employer] Iveth Moctezuma PA-C Work Phone: Start: 07-11-2013 [...] 09-21-2021 ADVANCE DIRECTIVE DISCUSSION ADVANCE DIRECTIVE DISCUSSION [facility] Start: 05-22-2021 Influenza vaccination INFLUENZA (#1) [facility] Start: 12-15-2017 End: 12-15-2017 Appointment Appointment [facility] Work Phone: Start: 06-15-2017 End: 06-15-2017 [employer]Janae SKELTON [facility] Work Phone: Start: 06-15-2017 End: 06-15-2017 Follow Up Appt 6 months Follow Up Appt 6 months [facility] Work Phone: Start: 06-15-2017 End: 06-15-2017 Appointment Appointment [facility] Work Phone: Start: 06-15-2017 End: 06-15-2017 [employer] [facility] Work Phone: Start: 06-15-2017 End: 06-15-2017 Follow Up Appt 6 months Follow Up Appt 6 months [facility] Work Phone: Start: 12-12-2016 End: 12-12-2016 Follow Up Appt 6 months Follow Up Appt 6 months [facility] Work Phone: Start: 12-12-2016 End: 12-12-2016 MMM MMM [facility] Work Phone: Start: 12-12-2016 End: 12-12-2016 Follow Up Appt 6 months Follow Up Appt 6 months [facility] Work Phone: Start: 12-12-2016 End: 12-12-2016 MMM MMM [facility] Work Phone: Start: 11-26-2016 DIABETES SCREEN DIABETES SCREEN [facility] Start: 05-29-2016 End: 05-29-2016 [employer] COSTA [facility] Work Phone: Start: 05-29-2016 End: 05-29-2016 Ecg routine ecg w/least 12 lds w/i&r EKG (In office) [facility] Work Phone: Start: 05-29-2016 End: 05-29-2016 Follow Up Appt 6 months Follow Up Appt 6 months [facility] Work Phone: Start: 05-29-2016 End: 05-29-2016 [employer] [facility] Work Phone: Start: 05-29-2016 End: 05-29-2016 Electrocardiogram, complete EKG (In office) [facility] Work Phone: Start: 05-29-2016 End: 05-29-2016 Follow Up Appt 6 months Follow Up Appt 6 months [facility] Work Phone: Start: 02-21-2016 End: 02-21-2016 Follow Up Appt 3 months Follow Up Appt 3 months [facility] Work Phone: Start: 02-21-2016 End: 02-21-2016 MMM MMM [facility] Work Phone: Start: 02-21-2016 End: 02-21-2016 Follow Up Appt 3 months Follow Up Appt 3 months [facility] Work Phone: Start: 02-21-2016 End: 02-21-2016 MMM MMM [facility] Work Phone: Start: 08-22-2015 End: 08-22-2015 [employer] [facility] Work Phone: Start: 08-22-2015 End: 08-22-2015 Follow Up Appt 6 months Follow Up Appt 6 months [facility] Work Phone: Start: 08-22-2015 End: 08-22-2015 [employer] [facility] Work Phone: Start: 08-22-2015 End: 08-22-2015 Follow Up Appt 6 months Follow Up Appt 6 months [facility] Work Phone: Start: 07-20-2015 End: 06-03-2017 *Hepatic Function Panel *Hepatic Function Panel [facility] Work Phone: Start: 07-20-2015 End: 06-03-2017 Lipid panel [AGGREGATE] *Lipid Profile CC PCP [facility] Work Phone: Start: 07-20-2015 End: 06-03-2017 *Hepatic Function Panel *Hepatic Function Panel [facility] Work Phone: Start: 07-20-2015 End: 06-03-2017 Lipid panel [AGGREGATE] *Lipid Profile CC PCP [facility] Work Phone: Start: 05-16-2015 End: 05-16-2015 Xtrnl mobile cv telemetry w/i&report 30 days 30 Day Holter Monitor [facility] Work Phone: Start: 05-16-2015 End: 05-16-2015 Remote 30 day ecg rev/report 30 Day Holter Monitor [facility] Work Phone: Start: 05-15-2015 End: 05-15-2015 Ecg routine ecg w/least 12 lds w/i&r EKG (In office) [facility] Work Phone: Start: 05-15-2015 End: 05-15-2015 Follow Up Appt 3 months Follow Up Appt 3 months [employer] Work Phone: Start: 05-15-2015 End: 05-15-2015 MMM MMM [facility] Work Phone: Start: 05-15-2015 End: 05-15-2015 Nuclear stress test -Lexiscan Nuclear stress test -Lexiscan [facility] Work Phone: Start: 05-15-2015 End: 05-15-2015 Electrocardiogram, complete EKG (In office) [facility] Work Phone: Start: 05-15-2015 End: 05-15-2015 Follow Up Appt 3 months Follow Up Appt 3 months [employer] Work Phone: Start: 05-15-2015 End: 05-15-2015 MMM MMM [facility] Work Phone: Start: 05-15-2015 End: 05-15-2015 Nuclear stress test -Lexiscan Nuclear stress test -Lexiscan [facility] Work Phone: Start: 02-08-2015 End: 06-03-2017 Radex wrist complete minimum 3 views X-Ray, Wrist [facility] Work Phone: Start: 02-08-2015 End: 06-03-2017 X-ray exam of wrist X-Ray, Wrist [facility] Work Phone: Start: 01-02-2015 End: 01-18-2015 *Hepatic Function Panel *Hepatic Function Panel [employer] Work Phone: Start: 01-02-2015 End: 01-02-2015 Follow Up Appt 6 months Follow Up Appt 6 months [facility] Work Phone: Start: 01-02-2015 End: 01-18-2015 Lipid panel [AGGREGATE] *Lipid Profile CC PCP [facility] Work Phone: Start: 01-02-2015 End: 01-02-2015 MMM MMM [facility] Work Phone: Start: 01-02-2015 End: 01-18-2015 *Hepatic Function Panel *Hepatic Function Panel [employer] Work Phone: Start: 01-02-2015 End: 01-02-2015 Follow Up Appt 6 months Follow Up Appt 6 months [employer] Work Phone: Start: 01-02-2015 End: 01-18-2015 Lipid panel [AGGREGATE] *Lipid Profile CC PCP [facility] Work Phone: Start: 01-02-2015 End: 01-02-2015 MMM MMM [facility] Work Phone: Start: 09-27-2014 End: 10-11-2014 *CBC with Differential *CBC with Differential [facility] Work Phone: Start: 09-27-2014 End: 09-27-2014 24 hour holter monitor 24 hour holter monitor [facility] Work Phone: Start: 09-27-2014 End: 09-27-2014 [employer] [facility] Work Phone: Start: 09-27-2014 End: 09-27-2014 Ecg routine ecg w/least 12 lds w/i&r EKG (In office) [facility] Work Phone: Start: 09-27-2014 End: 09-27-2014 Follow Up Appt 3 months Follow Up Appt 3 months [facility] Work Phone: Start: 09-27-2014 End: 10-11-2014 Thyroid stimulating hormone (TSH) *TSH [facility] Work Phone: Start: 09-27-2014 End: 10-11-2014 Thyroxine (T4) *T4 (Total) [facility] Work Phone: Start: 09-27-2014 End: 10-11-2014 *CBC with Differential *CBC with Differential [facility] Work Phone: Start: 09-27-2014 End: 09-27-2014 24 hour holter monitor 24 hour holter monitor [facility] Work Phone: Start: 09-27-2014 End: 09-27-2014 [employer] [facility] Work Phone: Start: 09-27-2014 End: 09-27-2014 Electrocardiogram, complete EKG (In office) [facility] Work Phone: Start: 09-27-2014 End: 09-27-2014 Follow Up Appt 3 months Follow Up Appt 3 months [facility] Work Phone: Start: 09-27-2014 End: 10-11-2014 Thyroid stimulating hormone (TSH) *TSH [facility] Work Phone: Start: 09-27-2014 End: 10-11-2014 Thyroxine (T4) *T4 (Total) [facility] Work Phone: Start: 09-21-2014 End: 11-22-2014 *Hepatic Function Panel *Hepatic Function Panel [facility] Work Phone: Start: 09-21-2014 End: 11-22-2014 Lipid panel [AGGREGATE] *Lipid Profile CC PCP [facility] Work Phone: Start: 09-21-2014 End: 11-22-2014 *Hepatic Function Panel *Hepatic Function Panel [facility] Work Phone: Start: 09-21-2014 End: 11-22-2014 Lipid panel [AGGREGATE] *Lipid Profile CC PCP [facility] Work Phone: Start: 03-28-2014 End: 03-29-2014 *Hepatic Function Panel *Hepatic Function Panel [facility] Work Phone: Start: 03-28-2014 End: 03-28-2014 Follow Up Appt 6 months Follow Up Appt 6 months [facility] Work Phone: Start: 03-28-2014 End: 03-29-2014 Lipid panel [AGGREGATE] *Lipid Profile CC PCP [facility] Work Phone: Start: 03-28-2014 End: 03-28-2014 MMM MMM [facility] Work Phone: Start: 03-28-2014 End: 03-29-2014 Thyroid stimulating hormone (TSH) *TSH [facility] Work Phone: Start: 03-28-2014 End: 03-29-2014 Thyroxine (T4) *T4 (Total) [facility] Work Phone: Start: 03-28-2014 End: 03-29-2014 *Hepatic Function Panel *Hepatic Function Panel [facility] Work Phone: Start: 03-28-2014 End: 03-28-2014 Follow Up Appt 6 months Follow Up Appt 6 months [facility] Work Phone: Start: 03-28-2014 End: 03-29-2014 Lipid panel [AGGREGATE] *Lipid Profile CC PCP [facility] Work Phone: Start: 03-28-2014 End: 03-28-2014 MMM MMM [facility] Work Phone: Start: 03-28-2014 End: 03-29-2014 Thyroid stimulating hormone (TSH) *TSH [facility] Work Phone: Start: 03-28-2014 End: 03-29-2014 Thyroxine (T4) *T4 (Total) [facility] Work Phone: Start: 12-21-2013 End: 12-21-2013 [employer] [facility] Work Phone: Start: 12-21-2013 End: 12-21-2013 Follow Up Appt 3 months Follow Up Appt 3 months [facility] Work Phone: Start: 12-21-2013 End: 12-21-2013 [employer] [facility] Work Phone: Start: 12-21-2013 End: 12-21-2013 Follow Up Appt 3 months Follow Up Appt 3 months [facility] Work Phone: Start: 12-07-2013 End: 12-20-2013 *CBC with Differential *CBC with Differential [facility] Work Phone: Start: 12-07-2013 End: 12-07-2013 Cardiac Rehab Cardiac Rehab [facility] Work Phone: Start: 12-07-2013 End: 12-07-2013 Ecg routine ecg w/least 12 lds w/i&r EKG (In office) [facility] Work Phone: Start: 12-07-2013 End: 12-07-2013 Follow up Appt 3 weeks Follow up Appt 3 weeks [facility] Work Phone: Start: 12-07-2013 End: 12-07-2013 MMM MMM [facility] Work Phone: Start: 12-07-2013 End: 12-20-2013 *CBC with Differential *CBC with Differential [facility] Work Phone: Start: 12-07-2013 End: 12-07-2013 Cardiac Rehab Cardiac Rehab [facility] Work Phone: Start: 12-07-2013 End: [...] Differential panel - Blood *CBC without Diff [facility] Work Phone: Start: 11-18-2013 End: [...] Phone: Start: 11-18-2013 End: 11-18-2013 MMM MMM [facility] Work Phone: Start: 11-18-2013 End: 11-18-2013 *BMP *BMP [facility] Work Phone: Start: 11-18-2013 End: 11-18-2013 CBC W Auto Differential panel - Blood *CBC without Diff [facility] Work Phone: Start: 11-18-2013 End: 11-21-2013 Chest x-ray X-Ray, Chest, PA & Lateral [facility] Work Phone: Start: 11-18-2013 End: 11-18-2013 Coagulation factor induced.INR assay in platelet poor plasma *PT/INR [facility] Work Phone: Start: 11-18-2013 End: 11-18-2013 Electrocardiogram, complete EKG (In office) [facility] Work Phone: Start: 11-18-2013 End: 11-18-2013 Follow Up Appt 3 months Follow Up Appt 3 months [facility] Work Phone: Start: 11-18-2013 End: 11-18-2013 Left & Right Heart Cath Left & Right Heart Cath [facility] Work Phone: Start: 11-18-2013 End: 11-18-2013 MMM MMM [facility] Work Phone: Start: 07-11-2013 End: 07-11-2013 [employer] [facility] Work Phone: Start: 07-11-2013 End: 07-11-2013 Follow Up Appt 6 months Follow Up Appt 6 months [facility] Work Phone: Start: 07-11-2013 End: 07-11-2013 [employer] [facility] Work Phone: Start: 07-11-2013 End: 07-11-2013 Follow Up Appt 6 months Follow Up Appt 6 months [facility] Work Phone: Start: 04-06-2013 End: 04-06-2013 Follow Up Appt 3 months Follow Up Appt 3 months [facility] Work Phone: Start: 04-06-2013 End: 04-06-2013 MMM MMM [facility] Work Phone: Start: 04-06-2013 End: 04-06-2013 Nuclear stress test -adenosine Nuclear stress test -adenosine [facility] Work Phone: Start: 04-06-2013 End: 04-06-2013 Follow Up Appt 3 months Follow Up Appt 3 months [facility] Work Phone: Start: 04-06-2013 End: 04-06-2013 MMM MMM [facility] Work Phone: Start: 04-06-2013 End: 04-06-2013 Nuclear stress test -adenosine Nuclear stress test -adenosine [facility] Work Phone: Start: 2000 BONE DENSITY BONE DENSITY [facility] Start: 2000 PNEUMOVAX AGE 65 AND OVER WITH 5YR LOOKBACK (#1) PNEUMOVAX AGE 65 AND OVER WITH 5YR LOOKBACK (#1) [facility] Start: 1985 SHINGRIX VACCINE (1 of 2) SHINGRIX VACCINE (1 of 2) [facility] Start: 1954 Urine microalbumin profile DTAP,TDAP,TD (1 - Tdap) [facility] Start: 1940 COVID-19 VACCINE (1) COVID-19 VACCINE (1) [facility] Patient Education [facility] Work Phone: Social History Date Type Detail Facility Start: 09-03-2016 Tobacco smoking status NHIS Never sm oked tobacco [facility] Start: 1935 Sex Assigned At Not on file [facility] Summary Purpose Family History No [...] or prosecute any alcohol or drug abuse patient.[facility] Care Teams (unrecognized sec tion and content) [...] BE BASED ON THE PRIMARY CLINICAL RECORDS. [facility] [employer] [facility]. provides no warranty or guarantee of the accuracy or completeness of information in this document.
[2023-11-01 21:18] LABS: Magnesium 2.3 mg/dL (1.6-2.6)
--- OUTSIDE RECORDS SUMMARY | 2023-11-01 21:50 | XMS RPT_ITS | CCD ---
Author Name Unknown Address [address] [place] [address] Organization [facility] Care Team Providers Care Active Directory Engineer Name Role Phone Cindy Brian Unavailable Unavailable MD Naya, Sonny Meza Unavailable Cindy Brian Unavailable Unavailable Aditya Hope Chi Primary Care Provider Allergies Allergy Classification Reported Allergen(s) Allergy Type Date of Onset Reaction(s) Facility (3 sources) ibuprofen drug allergy 04-06-2013 [facility] Work Phone: (4 sources) ibuprofen drug allergy 04-06-2013 Unknown [facility] Work Phone: Medications Completed/Discontinued Medications Medication Drug Class(es) Dates Sig (Normalized) Sig (Original) acetaminophen 325 mg / HYDROcodone bitartrate 5 mg oral tablet (10 sources) Opioid Agonist Start: 12-12-2016 NORCO 5-325 MG TABS as needed HYDROCODONE-ACETAMI NOPHEN [id number] Sonny Person MD Problems Active Problems Problem Classification Problem Date Documented Date Episodic/Chronic Cardiac dysrhythmias (3 sources) Paroxysmal tachycardia; Translations: [Paroxysmal tachycardia, unspecified] Onset: 09-27-2014 09-27-2014 Chronic Coronary atherosclerosis and other heart disease (3 sources) Atherosclerotic heart disease of [place] coronary artery without angina pectoris; Translations: [Atherosclerotic heart disease of [place] coronary artery without angina pectoris] Onset: 12-07-2013 [...] (2 sources) Long-term drug therapy; Translations: [Other custodial (current) drug therapy] Onset: 03-30-2014 08-22-2015 Unclassified (1 source) 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; 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] Onset: 02-20-2016 [...] Long-term (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 other medications; 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] Onset: 03-30-2014 [...] 15:12-0400 Weight 102.51 kg Sonny Person MD [facility] Work Phone: 05-29-2016 10:04-0400 BSA (Body Surface Area) 2.08 m2 MD [facility] Work Phone: Encounters Encounter Date Encounter Type Care Provider Facility Start: 12-18-2021 End: 12-18-2021 Subsequent hospital visit by physician [facility] Provider David LYNN Procedures Date Procedure Procedure Detail Performing Clinician Start: 06-15-2017 End: 06-15-2017 STAFF CYTOTECHNOLOGIST Iveth Moctezuma PA-C Work Phone: Start: 06-15-2017 End: 06-15-2017 Follow Up Appt 6 months Iveth barfield PA-C Work Phone: Start: 06-15-2017 End: 06-15-2017 STAFF CYTOTECHNOLOGIST Iveth Moctezuma PA-C Work Phone: Start: 06-15-2017 End: 06-15-2017 Follow Up Appt 6 months Iveth barfield PA-C Work Phone: Start: 12-12-2016 End: 12-12-2016 Follow Up Appt 6 months Neftaly Abdi Start: 12-12-2016 End: 12-12-2016 EJ Person MD Start: 12-12-2016 End: 12-12-2016 Follow Up Appt 6 months Neftaly Abdi Start: 12-12-2016 End: 12-12-2016 EJ Person MD Start: 05-29-2016 End: 05-29-2016 STAFF CYTOTECHNOLOGIST Iveth Moctezuma PA-C Work Phone: Start: 05-29-2016 End: 05-29-2016 Ecg routine ecg w/least 12 lds w/i&r Iveth Moctezuma PA-C Work Phone: Start: 05-29-2016 End: 05-29-2016 Follow Up Appt 6 months Iveth barfield PA-C Work Phone: Start: 05-29-2016 End: 05-29-2016 STAFF CYTOTECHNOLOGIST Iveth Moctezuma PA-C Work Phone: Start: 05-29-2016 [...] PA-C Work Phone: Start: 09-27-2014 End: 09-27-2014 STAFF CYTOTECHNOLOGIST Iveth Moctezuma PA-C Work Phone: Start: 09-27-2014 End: 09-27-2014 Ecg routine ecg w/least 12 lds w/i&r Iveth Moctezuma PA-C Work Phone: Start: 09-27-2014 End: 09-27-2014 Follow Up Appt 3 months Iveth barfield PA-C Work Phone: Start: 09-27-2014 End: 10-11-2014 Thyrotropin [Units/volume] in Serum or Plasma Iveth Mocetzuma PA-C Work Phone: Start: 09-27-2014 End: 10-11-2014 Thyroxine (T4) [Mass/volume] in Serum or Plasma Iveth Moctezuma PA-C Work Phone: Start: 09-27-2014 End: 10-11-2014 *CBC with Differential Iveth arnold PA-C Work Phone: Start: 09-27-2014 End: 10-11-2014 24 hour holter monitor Iveth arnold PA-C Work Phone: Start: 09-27-2014 End: 09-27-2014 STAFF CYTOTECHNOLOGIST Iveth Moctezuma PA-C Work Phone: Start: 09-27-2014 End: 09-27-2014 Electrocardiogram, complete Iveth Mireles PA-C Work Phone: Start: 09-27-2014 End: 09-27-2014 Follow Up Appt 3 months Iveth barfield PA-C Work Phone: Start: 09-27-2014 End: 10-11-2014 Thyroid stimulating hormone (TSH) Iveth Motcezuma PA-C Work Phone: Start: 09-21-2014 End: 01-18-2015 [...] PA-C Work Phone: Start: 12-21-2013 End: 12-21-2013 STAFF CYTOTECHNOLOGIST Iveth Moctezuma PA-C Work Phone: Start: 12-21-2013 [...] EJ Person MD Start: 07-11-2013 End: 07-11-2013 STAFF CYTOTECHNOLOGIST Iveth Moctezuma PA-C Work Phone: Start: 07-11-2013 End: 07-11-2013 Follow Up Appt 6 months Iveth barfield PA-C Work Phone: Start: 07-11-2013 End: 07-11-2013 STAFF CYTOTECHNOLOGIST Iveth Moctezuma PA-C Work Phone: Start: 07-11-2013 [...] 09-21-2021 ADVANCE DIRECTIVE DISCUSSION ADVANCE DIRECTIVE DISCUSSION [facility] Start: 05-22-2021 Influenza vaccination INFLUENZA (#1) [facility] Start: 12-15-2017 End: 12-15-2017 Appointment Appointment [facility] Work Phone: Start: 06-15-2017 End: 06-15-2017 STAFF CYTOTECHNOLOGISTJanae SKELTON [facility] Work Phone: Start: 06-15-2017 End: 06-15-2017 Follow Up Appt 6 months Follow Up Appt 6 months [facility] Work Phone: Start: 06-15-2017 End: 06-15-2017 Appointment Appointment [facility] Work Phone: Start: 06-15-2017 End: 06-15-2017 STAFF CYTOTECHNOLOGIST STAFF CYTOTECHNOLOGIST [facility] Work Phone: Start: 06-15-2017 End: 06-15-2017 Follow Up Appt 6 months Follow Up Appt 6 months [facility] Work Phone: Start: 12-12-2016 End: 12-12-2016 Follow Up Appt 6 months Follow Up Appt 6 months [facility] Work Phone: Start: 12-12-2016 End: 12-12-2016 MMM MMM [facility] Work Phone: Start: 12-12-2016 End: 12-12-2016 Follow Up Appt 6 months Follow Up Appt 6 months [facility] Work Phone: Start: 12-12-2016 End: 12-12-2016 MMM MMM [facility] Work Phone: Start: 11-26-2016 DIABETES SCREEN DIABETES SCREEN [facility] Start: 05-29-2016 End: 05-29-2016 STAFF CYTOTECHNOLOGIST COSTA [facility] Work Phone: Start: 05-29-2016 End: 05-29-2016 Ecg routine ecg w/least 12 lds w/i&r EKG (In office) [facility] Work Phone: Start: 05-29-2016 End: 05-29-2016 Follow Up Appt 6 months Follow Up Appt 6 months [facility] Work Phone: Start: 05-29-2016 End: 05-29-2016 STAFF CYTOTECHNOLOGIST STAFF CYTOTECHNOLOGIST [facility] Work Phone: Start: 05-29-2016 End: 05-29-2016 Electrocardiogram, complete EKG (In office) [facility] Work Phone: Start: 05-29-2016 End: 05-29-2016 Follow Up Appt 6 months Follow Up Appt 6 months [facility] Work Phone: Start: 02-21-2016 End: 02-21-2016 Follow Up Appt 3 months Follow Up Appt 3 months [facility] Work Phone: Start: 02-21-2016 End: 02-21-2016 MMM MMM [facility] Work Phone: Start: 02-21-2016 End: 02-21-2016 Follow Up Appt 3 months Follow Up Appt 3 months [facility] Work Phone: Start: 02-21-2016 End: 02-21-2016 MMM MMM [facility] Work Phone: Start: 08-22-2015 End: 08-22-2015 STAFF CYTOTECHNOLOGIST STAFF CYTOTECHNOLOGIST [facility] Work Phone: Start: 08-22-2015 End: 08-22-2015 Follow Up Appt 6 months Follow Up Appt 6 months [facility] Work Phone: Start: 08-22-2015 End: 08-22-2015 STAFF CYTOTECHNOLOGIST STAFF CYTOTECHNOLOGIST [facility] Work Phone: Start: 08-22-2015 End: 08-22-2015 Follow Up Appt 6 months Follow Up Appt 6 months [facility] Work Phone: Start: 07-20-2015 End: 06-03-2017 *Hepatic Function Panel *Hepatic Function Panel [facility] Work Phone: Start: 07-20-2015 End: 06-03-2017 Lipid panel [AGGREGATE] *Lipid Profile CC PCP [facility] Work Phone: Start: 07-20-2015 End: 06-03-2017 *Hepatic Function Panel *Hepatic Function Panel [facility] Work Phone: Start: 07-20-2015 End: 06-03-2017 Lipid panel [AGGREGATE] *Lipid Profile CC PCP [employer] Work Phone: Start: 05-16-2015 End: 05-16-2015 Xtrnl mobile cv telemetry w/i&report 30 days 30 Day Holter Monitor [facility] Work Phone: Start: 05-16-2015 End: 05-16-2015 Remote 30 day ecg rev/report 30 Day Holter Monitor [facility] Work Phone: Start: 05-15-2015 End: 05-15-2015 Ecg routine ecg w/least 12 lds w/i&r EKG (In office) [facility] Work Phone: Start: 05-15-2015 End: 05-15-2015 Follow Up Appt 3 months Follow Up Appt 3 months [employer] Work Phone: Start: 05-15-2015 End: 05-15-2015 MMM MMM [facility] Work Phone: Start: 05-15-2015 End: 05-15-2015 Nuclear stress test -Lexiscan Nuclear stress test -Lexiscan [facility] Work Phone: Start: 05-15-2015 End: 05-15-2015 Electrocardiogram, complete EKG (In office) [facility] Work Phone: Start: 05-15-2015 End: 05-15-2015 Follow Up Appt 3 months Follow Up Appt 3 months [employer] Work Phone: Start: 05-15-2015 End: 05-15-2015 MMM MMM [facility] Work Phone: Start: 05-15-2015 End: 05-15-2015 Nuclear stress test -Lexiscan Nuclear stress test -Lexiscan [facility] Work Phone: Start: 02-08-2015 End: 06-03-2017 Radex wrist complete minimum 3 views X-Ray, Wrist [facility] Work Phone: Start: 02-08-2015 End: 06-03-2017 X-ray exam of wrist X-Ray, Wrist [facility] Work Phone: Start: 01-02-2015 End: 01-18-2015 *Hepatic Function Panel *Hepatic Function Panel [employer] Work Phone: Start: 01-02-2015 End: 01-02-2015 Follow Up Appt 6 months Follow Up Appt 6 months [facility] Work Phone: Start: 01-02-2015 End: 01-18-2015 Lipid panel [AGGREGATE] *Lipid Profile CC PCP [facility] Work Phone: Start: 01-02-2015 End: 01-02-2015 MMM MMM [facility] Work Phone: Start: 01-02-2015 End: 01-18-2015 *Hepatic Function Panel *Hepatic Function Panel [employer] Work Phone: Start: 01-02-2015 End: 01-02-2015 Follow Up Appt 6 months Follow Up Appt 6 months [employer] Work Phone: Start: 01-02-2015 End: 01-18-2015 Lipid panel [AGGREGATE] *Lipid Profile CC PCP [facility] Work Phone: Start: 01-02-2015 End: 01-02-2015 MMM MMM [facility] Work Phone: Start: 09-27-2014 End: 10-11-2014 *CBC with Differential *CBC with Differential [facility] Work Phone: Start: 09-27-2014 End: 09-27-2014 24 hour holter monitor 24 hour holter monitor [employer] Work Phone: Start: 09-27-2014 End: 09-27-2014 STAFF CYTOTECHNOLOGIST STAFF CYTOTECHNOLOGIST [facility] Work Phone: Start: 09-27-2014 End: 09-27-2014 Ecg routine ecg w/least 12 lds w/i&r EKG (In office) [facility] Work Phone: Start: 09-27-2014 End: 09-27-2014 Follow Up Appt 3 months Follow Up Appt 3 months [facility] Work Phone: Start: 09-27-2014 End: 10-11-2014 Thyroid stimulating hormone (TSH) *TSH [facility] Work Phone: Start: 09-27-2014 End: 10-11-2014 Thyroxine (T4) *T4 (Total) [facility] Work Phone: Start: 09-27-2014 End: 10-11-2014 *CBC with Differential *CBC with Differential [facility] Work Phone: Start: 09-27-2014 End: 09-27-2014 24 hour holter monitor 24 hour holter monitor [facility] Work Phone: Start: 09-27-2014 End: 09-27-2014 STAFF CYTOTECHNOLOGIST STAFF CYTOTECHNOLOGIST [facility] Work Phone: Start: 09-27-2014 End: 09-27-2014 Electrocardiogram, complete EKG (In office) [facility] Work Phone: Start: 09-27-2014 End: 09-27-2014 Follow Up Appt 3 months Follow Up Appt 3 months [facility] Work Phone: Start: 09-27-2014 End: 10-11-2014 Thyroid stimulating hormone (TSH) *TSH [facility] Work Phone: Start: 09-27-2014 End: 10-11-2014 Thyroxine (T4) *T4 (Total) [facility] Work Phone: Start: 09-21-2014 End: 11-22-2014 *Hepatic Function Panel *Hepatic Function Panel [facility] Work Phone: Start: 09-21-2014 End: 11-22-2014 Lipid panel [AGGREGATE] *Lipid Profile CC PCP [facility] Work Phone: Start: 09-21-2014 End: 11-22-2014 *Hepatic Function Panel *Hepatic Function Panel [facility] Work Phone: Start: 09-21-2014 End: 11-22-2014 Lipid panel [AGGREGATE] *Lipid Profile CC PCP [facility] Work Phone: Start: 03-28-2014 End: 03-29-2014 *Hepatic Function Panel *Hepatic Function Panel [facility] Work Phone: Start: 03-28-2014 End: 03-28-2014 Follow Up Appt 6 months Follow Up Appt 6 months [facility] Work Phone: Start: 03-28-2014 End: 03-29-2014 Lipid panel [AGGREGATE] *Lipid Profile CC PCP [facility] Work Phone: Start: 03-28-2014 End: 03-28-2014 MMM MMM [facility] Work Phone: Start: 03-28-2014 End: 03-29-2014 Thyroid stimulating hormone (TSH) *TSH [facility] Work Phone: Start: 03-28-2014 End: 03-29-2014 Thyroxine (T4) *T4 (Total) [facility] Work Phone: Start: 03-28-2014 End: 03-29-2014 *Hepatic Function Panel *Hepatic Function Panel [facility] Work Phone: Start: 03-28-2014 End: 03-28-2014 Follow Up Appt 6 months Follow Up Appt 6 months [facility] Work Phone: Start: 03-28-2014 End: 03-29-2014 Lipid panel [AGGREGATE] *Lipid Profile CC PCP [facility] Work Phone: Start: 03-28-2014 End: 03-28-2014 MMM MMM [facility] Work Phone: Start: 03-28-2014 End: 03-29-2014 Thyroid stimulating hormone (TSH) *TSH [facility] Work Phone: Start: 03-28-2014 End: 03-29-2014 Thyroxine (T4) *T4 (Total) [facility] Work Phone: Start: 12-21-2013 End: 12-21-2013 STAFF CYTOTECHNOLOGIST STAFF CYTOTECHNOLOGIST [facility] Work Phone: Start: 12-21-2013 End: 12-21-2013 Follow Up Appt 3 months Follow Up Appt 3 months [facility] Work Phone: Start: 12-21-2013 End: 12-21-2013 STAFF CYTOTECHNOLOGIST STAFF CYTOTECHNOLOGIST [facility] Work Phone: Start: 12-21-2013 End: 12-21-2013 Follow Up Appt 3 months Follow Up Appt 3 months [facility] Work Phone: Start: 12-07-2013 End: 12-20-2013 *CBC with Differential *CBC with Differential [facility] Work Phone: Start: 12-07-2013 End: 12-07-2013 Cardiac Rehab Cardiac Rehab [facility] Work Phone: Start: 12-07-2013 End: 12-07-2013 Ecg routine ecg w/least 12 lds w/i&r EKG (In office) [facility] Work Phone: Start: 12-07-2013 End: 12-07-2013 Follow up Appt 3 weeks Follow up Appt 3 weeks [facility] Work Phone: Start: 12-07-2013 End: 12-07-2013 MMM MMM [facility] Work Phone: Start: 12-07-2013 End: 12-20-2013 *CBC with Differential *CBC with Differential [facility] Work Phone: Start: 12-07-2013 End: 12-07-2013 Cardiac Rehab Cardiac Rehab [facility] Work Phone: Start: 12-07-2013 End: [...] Differential panel - Blood *CBC without Diff [facility] Work Phone: Start: 11-18-2013 End: [...] Phone: Start: 11-18-2013 End: 11-18-2013 MMM MMM [facility] Work Phone: Start: 11-18-2013 End: 11-18-2013 *BMP *BMP [facility] Work Phone: Start: 11-18-2013 End: 11-18-2013 CBC W Auto Differential panel - Blood *CBC without Diff [facility] Work Phone: Start: 11-18-2013 End: 11-21-2013 Chest x-ray X-Ray, Chest, PA & Lateral [facility] Work Phone: Start: 11-18-2013 End: 11-18-2013 Coagulation factor induced.INR assay in platelet poor plasma *PT/INR [facility] Work Phone: Start: 11-18-2013 End: 11-18-2013 Electrocardiogram, complete EKG (In office) [facility] Work Phone: Start: 11-18-2013 End: 11-18-2013 Follow Up Appt 3 months Follow Up Appt 3 months [facility] Work Phone: Start: 11-18-2013 End: 11-18-2013 Left & Right Heart Cath Left & Right Heart Cath [facility] Work Phone: Start: 11-18-2013 End: 11-18-2013 MMM MMM [facility] Work Phone: Start: 07-11-2013 End: 07-11-2013 STAFF CYTOTECHNOLOGIST STAFF CYTOTECHNOLOGIST [facility] Work Phone: Start: 07-11-2013 End: 07-11-2013 Follow Up Appt 6 months Follow Up Appt 6 months [facility] Work Phone: Start: 07-11-2013 End: 07-11-2013 STAFF CYTOTECHNOLOGIST STAFF CYTOTECHNOLOGIST [facility] Work Phone: Start: 07-11-2013 End: 07-11-2013 Follow Up Appt 6 months Follow Up Appt 6 months [facility] Work Phone: Start: 04-06-2013 End: 04-06-2013 Follow Up Appt 3 months Follow Up Appt 3 months [facility] Work Phone: Start: 04-06-2013 End: 04-06-2013 MMM MMM [facility] Work Phone: Start: 04-06-2013 End: 04-06-2013 Nuclear stress test -adenosine Nuclear stress test -adenosine [facility] Work Phone: Start: 04-06-2013 End: 04-06-2013 Follow Up Appt 3 months Follow Up Appt 3 months [facility] Work Phone: Start: 04-06-2013 End: 04-06-2013 MMM MMM [facility] Work Phone: Start: 04-06-2013 End: 04-06-2013 Nuclear stress test -adenosine Nuclear stress test -adenosine [facility] Work Phone: Start: 2000 BONE DENSITY BONE DENSITY [facility] Start: 2000 PNEUMOVAX AGE 65 AND OVER WITH 5YR LOOKBACK (#1) PNEUMOVAX AGE 65 AND OVER WITH 5YR LOOKBACK (#1) [facility] Start: 1985 SHINGRIX VACCINE (1 of 2) SHINGRIX VACCINE (1 of 2) [facility] Start: 1954 Urine microalbumin profile DTAP,TDAP,TD (1 - Tdap) [facility] Start: 1940 COVID-19 VACCINE (1) COVID-19 VACCINE (1) [facility] Patient Education [facility] Work Phone: Social History Date Type Detail Facility Start: 09-03-2016 Tobacco smoking status NHIS Never sm oked tobacco [facility] Start: 1935 Sex Assigned At Not on file [facility] Summary Purpose Family History No [...] or prosecute any alcohol or drug abuse patient.[facility] Care Teams (unrecognized sec tion and [...] BE BASED ON THE PRIMARY CLINICAL RECORDS. [facility] [facility]. provides no warranty or guarantee of the accuracy or completeness of information in this document.
[2023-11-01] MEDS: Azithromycin 500 MG in Dextrose 5%-Water (250mL Bag) 250 ML 250 MG IV (22:01)
[2023-11-01] MEDS: Metoprolol Tartrate 50 MG Tablet PO (22:36)
[2023-11-01] MEDS: Methenamine Hippurate 1 GM Tablet PO (22:37)
[2023-11-01] MEDS: dilTIAZem 60 MG Tablet PO (22:37)
[2023-11-01] MEDS: Furosemide 80 MG Tablet PO (22:37)
[2023-11-01] MEDS: Potassium Chloride Oral Tablet 20 MEQ 40 MEQ PO (22:37)
[2023-11-01] MEDS: guaiFENesin 1,200 MG Tablet 1200 MG PO (22:37)
[2023-11-01] MEDS: Benzonatate 100 MG Capsule 200 MG PO (22:38)
[2023-11-01] MEDS: Acetaminophen 325 MG Tablet 650 MG PO (22:53)
[2023-11-02] VITALS (9 sets, daily range): BP systolic 128–139; BP diastolic 57–62; PULSE 82–92; RESP 16–20; TEMP 36.3–36.7; O2SAT 93–96
[2023-11-02] MEDS: KCL 20MEQ in 0.9% NS 20 MEQ/1,000 ML IV.SOLN. 100 MEQ IV (00:15)
[2023-11-02 05:14] LABS: M R Staph aureus DNA By PCR Negative (Negative); Probe Check PASS; Specimen Processing Control PASS
[2023-11-02] MEDS: SILDENAFIL CITRATE 20 MG TABLET PO ×3 (05:29→21:05)
[2023-11-02] MEDS: Levothyroxine 88 MCG Tablet PO (05:29)
[2023-11-02] MEDS: Potassium Chloride Oral Tablet 20 MEQ 40 MEQ PO ×3 (05:29→20:59)
[2023-11-02] MEDS: Nystatin Powder 15gm Bottle 1 APPLIC TOPICAL ×3 (05:29→20:59)
[2023-11-02] MEDS: Benzonatate 100 MG Capsule 200 MG PO ×3 (05:29→21:01)
[2023-11-02] MEDS: Budesonide Respules 0.5 MG/2 ML AMPUL.NEB. INHALATION (07:07)
[2023-11-02] MEDS: Ipratropium/Albuterol Sulfate 3 ML AMPUL.NEB INHALATION ×3 (07:07→20:09)
[2023-11-02 08:28] LABS: Absolute Lymphocyte Count 0.55 X10^3/uL (0.83-4.51); Absolute Neutrophil Count 8.6 X10^3/uL (2.0-7.7); Basophil# 0.02 X10^3/uL; Basophil% 0.2 % (0-1); Hematocrit 33.3 % (37-47); Hemoglobin 10.8 g/dL (12.0-15.0); Lymphocyte # 0.55 X10^3/ul (0.83-4.51); Lymphocyte % 5.9 % (19-41); Mean Corp Hgb Conc 32.4 g/dL (32-36); Mean Corpuscular Hgb 32.3 pg (27.0-32.0); Mean Corpuscular Volume 99.7 fL (81-99); Mean Platelet Vol. 11.1 fl (6.2-12.0); Monocyte# 0.12 X10^3/uL; Monocyte% 1.3 % (0-10); NRBC Flagged by Analyzer 0 % (0-5); Neutrophil # 8.64 X10^3/uL (2.7-7.7); Neutrophil % 91.9 % (47-70); POSITIVE DIFFERENTIAL YES; Platelet Count 210 K/mm3 (150-450); RBC Distribution Width CV 13.9 % (11.6-14.6); RBC Distribution Width SD 50.9 fl (35.1-43.9); Red Blood Count 3.34 M/mm3 (4.2-5.4); White Blood Count 9.4 K/mm3 (4.4-11.0)
[2023-11-02 08:53] LABS: International Normalized Ratio 4.2
[2023-11-02 09:09] LABS: Anion Gap 4 (5-15); BUN 19 mg/dL (7-18); Calcium,Total 9.6 mg/dL (8.5-10.1); Chloride 109 mmol/L (98-107); EST Glomerular Filtration Rate 63 mL/min (>60); Est Glom Filt Rate - Afr Amer 76 mL/min (>60); Estimated Creatinine Clearance 53.52 ml/min; Glucose 175 mg/dL (74-106); Sodium Level 144 mmol/L (136-145)
[2023-11-02] MEDS: Methenamine Hippurate 1 GM Tablet PO ×2 (09:18→21:05)
[2023-11-02] MEDS: amLODIPine 5 MG Tablet PO (09:18)
[2023-11-02] MEDS: guaiFENesin 1,200 MG Tablet 1200 MG PO ×2 (09:19→20:59)
[2023-11-02] MEDS: Allopurinol 100 MG Tablet PO (09:19)
[2023-11-02] MEDS: dilTIAZem 60 MG Tablet PO ×2 (09:19→20:57)
[2023-11-02] MEDS: Isosorbide Mononitrate 60 MG Tablet PO (09:19)
[2023-11-02] MEDS: Furosemide 80 MG Tablet PO ×2 (09:19→14:36)
[2023-11-02] MEDS: Cyanocobalamin 500 MCG Tablet 1000 MCG PO (09:19)
[2023-11-02] MEDS: Pantoprazole Sodium 40 MG Tablet PO (09:20)
[2023-11-02] MEDS: Metoprolol Tartrate 50 MG Tablet PO ×2 (09:20→21:02)
[2023-11-02] MEDS: Ascorbic Acid 500 MG Tablet PO (09:20)
[2023-11-02] MEDS: Vibegron 75 MG TABLET PO (09:21)
[2023-11-02] MEDS: Ipratropium Bromide 0.06% NASAL SPRAY 2 SPRAY NASAL (09:21)
[2023-11-02] MEDS: Sodium Chloride 0.65% 1 SPRAY SPRAY.BTL 2 SPRAY NASAL (09:22)
--- NOTE | 2023-11-02 10:41 | CASEMGMT ---
Discharge Planning Updates [facility] via [facility] [place] [facility] [place]. Jessica York, Discharge Planning Asst.
--- NOTE | 2023-11-02 11:10 | NURSING ---
Yaa discharge specialist nurse documenting/monitoring tele.
--- NOTE | 2023-11-02 12:13 | CASEMGMT ---
SW was informed by physician and RN that patient wants [facility] at d/c. SW met with patient and her family. Introduced self and role at [facility]. Patient confirmed she wants TCU at d/c. SW let patient know once therapy sees her SW will make the referral to TCU. Plan: TCU pending acceptance and patient being medically ready. Billie Stacy FLIGHT DISPATCHER JACOB
[2023-11-02] MEDS: Acetaminophen 325 MG Tablet 650 MG PO (14:23)
[2023-11-02] MEDS: 0.9% Saline Lock 10 ML Syringe IV ×2 (14:26→22:42)
--- NOTE | 2023-11-02 16:04 | NURSING ---
Yaa charge lpn nurse continues to run strips/document/assess telemetry.
--- NOTE | 2023-11-02 18:59 | PN.HOSP_ITS ---
Reason for Visit Reason for Visit: Diagnoses Pneumonia, unspecified organism (11/01/23) Chronic obstructive pulmonary disease with (acute) exacerbation (11/01/23) Subjective Subjective Patient was seen and examined today, she told this examiner that she would prefer to go to TCU if she had to go somewhere for short-term rehab services. Patient was admitted yesterday for bilateral pneumonia, exacerbation of COPD, and hypoxia. Objective Data Objective Data Vital Signs: Vital Signs Temp Pulse Resp BP Pulse Ox O2 Del Method O2 Flow Rate 97.9 F 82 20 H 128/57 H 93 Nasal Cannula 94 11/02/23 14:30 11/02/23 14:30 11/02/23 14:30 11/02/23 14:30 11/02/23 14:30 11/02/23 14:30 11/02/23 14:30 Oxygen Flow Rate (L/min) 94 Oxygen Delivery Method Nasal Cannula Weight: 114.1 kg Body Mass Index (BMI) 43.2 Intake & Output: Intake and Output for Last 24 Hours 10/31/23 11/01/23 11/02/23 23:59 23:59 23:59 Intake Total 500 / 740 1880 / 1880 Output Total 575 / 575 Balance 500 / 390 1305 / 1305 Lab / Micro Data 11/02/23 07:41 11/02/23 07:41 Labs: Laboratory Results - last 24 hr 11/01/23 19:05: WBC 14.6 H, RBC 3.65 L, Hgb 11.6 L, Hct 36.2 L, MCV 99.2 H, MCH 31.8, MCHC 32.0, RDW Std Deviation 51.8 H, RDW Coeff of Robbi 14.2, Plt Count 245, MPV 10.3, Immature Gran % (Auto) 0.500, Neut % (Auto) 79.7 H, Lymph % (Auto) 8.9 L, Alfalfa % (Auto) 8.4, Eos % (Auto) 2.0, Baso % (Auto) 0.5, Absolute Neuts (auto) 11.6 H, Absolute Lymphs (auto) 1.30, Nucleated RBC % 0, PT 31.0 H, INR 2.9, APTT 45.3 H, Sodium 142, Potassium 3.5, Chloride 106, Carbon Dioxide 31.0, Anion Gap 5, BUN 22 H, Creatinine 1.02, Estim Creat Clear Calc 48.21, Est GFR (MDRD) Af Amer 66, Est GFR (MDRD) Non-Af 54 L, BUN/Creatinine Ratio 21.6 H, Glucose 146 H, Lactic Acid 1.2, Calcium 10.1, Magnesium 2.3, Total Bilirubin 0.70, AST 10 L, ALT 14, Alkaline Phosphatase 117, Troponin I High Sens 16, B-Natriuretic Peptide 116.6 H, Total Protein 6.4, Albumin 3.4, Globulin 3.0, Albumin/Globulin Ratio 1.1 11/01/23 19:15: Urine Color Yellow, Urine Clarity Clear, Urine pH 6.5, Ur Specific [place] 1.010, Urine Protein Negative, Urine Glucose (UA) Normal, Urine Ketones Negative, Urine Occult Blood Negative, Urine Nitrite Negative, Urine Bilirubin Negative, Urine Urobilinogen Normal, Ur Leukocyte Esterase Negative, Urine RBC 0 SEEN, Urine WBC 0 SEEN, Ur Squamous Epith Cells 0 SEEN, Urine Bacteria 0 SEEN, Urine Mucus 0 SEEN 11/01/23 22:55: MRSA (PCR) Negative 11/02/23 07:41: WBC 9.4, RBC 3.34 L, Hgb 10.8 L, Hct 33.3 L, MCV 99.7 H, MCH 32.3 H, MCHC 32.4, RDW Std Deviation 50.9 H, RDW Coeff of Robbi 13.9, Plt Count 210, MPV 11.1, Immature Gran % (Auto) 0.700, Neut % (Auto) 91.9 H, Lymph % (Auto) 5.9 L, Alfalfa % (Auto) 1.3, Eos % (Auto) 0.0, Baso % (Auto) 0.2, Absolute Neuts (auto) 8.6 H, Absolute Lymphs (auto) 0.55 L, Nucleated RBC % 0, PT 41.0 H, INR 4.2 H*, Sodium 144, Potassium 4.0, Chloride 109 H, Carbon Dioxide 31.0, Anion Gap 4 L, BUN 19 H, Creatinine 0.90, Estim Creat Clear Calc 53.52, Est GFR (MDRD) Af Amer 76, Est GFR (MDRD) Non-Af 63, BUN/Creatinine Ratio 21.0 H, Glucose 175 H, Calcium 9.6, Phosphorus 3.0 Micro: Microbiology 11/01/23 23:36 Mucosa - Nasopharyngeal Respiratory Panel (PCR) - Final 11/01/23 19:10 Urine Catheter - Catheter Legionella Antigen - Final 11/01/23 19:10 Urine Catheter - Catheter Streptococcus pneumoniae Antigen (M - Final 11/01/23 19:10 Mucosa - Nasopharyngeal SARS-CoV-2, Influenza & RSV (PCR) - Final Radiography Diagnostic Testing: Radiology Impression Chest X-Ray 11/01/23 19:20 IMPRESSION: Bilateral pneumonia. Electronically Signed: Hemanth Sharp MD at 20:06 EST , Rhythm Strip Rhythm Strip: Sinus Tach Rate: 107 Ectopy: None Physical Exam Const alert, oriented x3 and no apparent distress Constitutional Narrative: Patient is morbidly obese General Appearance: cooperative, well kempt and well developed Orientation / Consciousness: awake, oriented to person, oriented to place and oriented to time HEENT normocephalic, head/scalp atraumatic and moist oral mucous membranes Eyes PERRL, EOMs intact bilaterally and conjunctivae normal Neck supple, no JVD, thyroid normal and no carotid bruits General: trachea midline Resp normal respiratory effort, no retractions and no use of accessory muscles Resp Narrative: Breath sounds are distant bilaterally Auscultation: Negative for rales, rhonchi or wheezes Cardio regular rate, regular rhythm, S1 normal heart sound, S2 normal heart sound, no murmurs, no rub and no gallops GI normal to inspection, nondistended, normoactive bowel sounds, soft to palpation, non-tender and non-distended Extremity no clubbing, cyanosis or edema Skin no rashes or lesions noted General Skin Exam: no breakdown Neuro oriented x3, CN's II-XII intact bilaterally, moves all extremities, no focal motor deficits and no sensory deficits noted Sensorium / Orientation: awake, alert, oriented to person, oriented to place and oriented to time Speech: speech normal Psych affect normal Assessment & Plan Assessment/Plan (1) COPD exacerbation: PLAN: Plan 1. Bilateral pneumonia-patient remains on Zithromax and Rocephin at this time, chest x-ray will be repeated tomorrow #2 exacerbation of COPD-patient remains on aerosol treatments and IV corticosteroids #3 paroxysmal atrial fibs-patient is on warfarin at this time, her INR was elevated today and her warfarin will be held and her INR will be rechecked tomorrow #4 hypothyroidism-patient is on Synthroid #5 essential hypertension-patient will remain on her current medications #6 acute debility-secondary to multiple medical problems, patient will be seen by PT and OT, she may need short-term placement in the halfway facility, she prefers TCU if she has to go anywhere. Patient is currently in assisted living. #7 morbid obesity-complicates care, medical course, recovery, and prognosis Total clinical time spent by myself addressing the patient's medical issues, reviewing all of her data, and collaborating with patient's care team: 35 minutes Charges/Coding Visit Charges Inpatient E&M: 64281 Subs Hosp L2
[2023-11-02] MEDS: Ceftriaxone 2 GM in 0.9% Normal Saline (50mL MB+) 50 ML IV (22:42)
[2023-11-02] MEDS: Azithromycin 500 MG in Dextrose 5%-Water (250mL Bag) 250 ML 250 MG IV (23:55)
[2023-11-03] VITALS (17 sets, daily range): BP systolic 126–141; BP diastolic 55–72; PULSE 81–98; RESP 16–24; TEMP 36.3–37.1; O2SAT 93–96
[2023-11-03] MEDS: Ipratropium/Albuterol Sulfate 3 ML AMPUL.NEB INHALATION ×4 (03:48→19:56)
[2023-11-03] MEDS: Nystatin Powder 15gm Bottle 1 APPLIC TOPICAL ×3 (05:22→22:23)
[2023-11-03] MEDS: Menthol/Lanolin/Calamine/Znox 113 GM Tube 1 APPLIC TOPICAL ×3 (05:23→22:07)
[2023-11-03] MEDS: Levothyroxine 88 MCG Tablet PO (05:23)
[2023-11-03] MEDS: SILDENAFIL CITRATE 20 MG TABLET PO ×3 (05:24→22:12)
[2023-11-03] MEDS: Potassium Chloride Oral Tablet 20 MEQ 40 MEQ PO ×3 (05:24→22:10)
[2023-11-03] MEDS: Benzonatate 100 MG Capsule 200 MG PO ×3 (05:24→22:09)
--- NOTE | 2023-11-03 05:55 | RAD_ITS ---
INDICATION: pneumonia EXAMINATION/TECHNIQUE: X-RAY - XR Chest 1 View AP portable. 3:17 AM COMPARISON: 11/01/2023 FINDINGS: LINES/DEVICES: None. LUNGS: Patchy alveolar infiltrates perihilar and lung bases bilaterally not significantly changed. No consolidation. No pneumothorax. MEDIASTINUM: Aorta is atherosclerotic. CARDIAC SILHOUETTE: Not enlarged. BONES AND SOFT TISSUES: No acute abnormalities. RAD/Chest 1 View (Portable) IMPRESSION: No change bilateral infiltrates. Electronically Signed: Alexandria Vieyra MD at 7:49 EST ,
--- NOTE | 2023-11-03 08:08 | NURSING ---
0750- Student nurse and instructor in room. material handler 2nd shift RN in process of administering med. Student assisted with administration of solumedrol. Med later noted to not appear on Nov as given. Day shift RN notified that med was given. Will resolve computer documentation and consult IT if needed. RADHA Redmond [employer] instrucctor.
[2023-11-03] MEDS: Allopurinol 100 MG Tablet PO (08:29)
[2023-11-03] MEDS: Ipratropium Bromide 0.06% NASAL SPRAY 2 SPRAY NASAL (09:55)
[2023-11-03] MEDS: dilTIAZem 60 MG Tablet PO ×2 (09:57→22:08)
[2023-11-03] MEDS: Vibegron 75 MG TABLET PO (10:00)
[2023-11-03] MEDS: Isosorbide Mononitrate 60 MG Tablet PO (10:01)
[2023-11-03] MEDS: Methenamine Hippurate 1 GM Tablet PO ×2 (10:01→22:23)
[2023-11-03] MEDS: Furosemide 80 MG Tablet PO ×2 (10:02→17:27)
[2023-11-03 10:03] LABS: International Normalized Ratio 3.1; Prothrombin Time (Protime)PT. 32.2 SECONDS (11.7-14.9)
[2023-11-03] MEDS: Metoprolol Tartrate 50 MG Tablet PO ×2 (10:03→22:11)
[2023-11-03] MEDS: guaiFENesin 1,200 MG Tablet 1200 MG PO ×2 (10:07→22:08)
[2023-11-03] MEDS: amLODIPine 5 MG Tablet PO (10:08)
[2023-11-03] MEDS: Pantoprazole Sodium 40 MG Tablet PO (10:08)
[2023-11-03] MEDS: Ascorbic Acid 500 MG Tablet PO (10:10)
[2023-11-03] MEDS: Cyanocobalamin 500 MCG Tablet 1000 MCG PO (10:10)
[2023-11-03] MEDS: Acetaminophen 325 MG Tablet 650 MG PO ×2 (12:00→21:41)
--- NOTE | 2023-11-03 13:36 | CON.PCM.CC_ITS ---
Assessment & Plan Assessment/Plan (1) Pneumonia: (2) Hypoxic: PLAN: Plan RECOMMENDATIONS: 1. Continue baseline diuretic therapy 2. Continue with empiric antibiotics pending cultures 3. Wean steroids as possible. 4. 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 Walking oximetry prior to discharge 6. Monitor daily INR is given ongoing antibiotics IMPRESSIONS: 1. Acute hypoxic respiratory insufficiency secondary to bilateral pneumonia Differential would include congestive heart failure as a possibility. How ever, patient presented with leukocytosis, fever and purulent sputum. Patient does carry diagnosis of COPD, but does not have an extensive smoking history. Patient does have a significant eosinophilia noted over the last 2 years. Could consider evaluation with [facility] as an outpatient. However, this is likely to be negative given patient is currently on high-dose steroids. Wean supplemental oxygen as tolerated. Patient will need a walking oximetry prior to discharge as supplemental oxygen may be required. Would likely continue with baseline diuretic therapy only. 2. Hypothyroidism/paroxysmal A-fib/hypertension/debility/morbid obesity/advanced age Complicates care, management, recovery and prognosis. Patient is being seen by PT/OT and likely will require some form of rehab following hospitalization. Cannot exclude the need for supplemental oxygen, so walking oximetry should be obtained prior to discharge and oxygen saturations should be followed during therapy. Patient's INR is therapeutic, however will need to watch for continued elevation given ongoing need for antibiotics. Okay to continue with baseline medications otherwise. HPI Consult Data Date of Consult: 11/03/23 HPI Narrative HPI Narrative: PAULO MILLER is an 88 F, with past medical history listed below, who presents to [facility] on 11/01/2023 secondary to progressive shortness of breath. Patient reportedly has had respiratory symptoms over the previous week, but felt that they have gotten severe over the last day or 2. Patient lives in assisted living and called 911. Patient reportedly had a fever of 101.4 ?F and was saturating 85% on room air when EMS arrived. Patient does use 2 L/min with her CPAP at baseline, but not during the day. Patient did receive a DuoNeb and routes. Patient had noted some increased swelling of her legs, but states that she had seen her vice president of manufacturing just recently and they were not impressed. In the ER, patient was noted to be tachycardic at 112 bpm. Patient was tachyp neic at 20 breaths/min. Laboratory workup showed a white blood cell count of 14.6, hemoglobin of 11.6 and platelets of 245. Patient was noted to have 2% eosinophils at that time. Patient is on Coumadin and INR was noted to be 2.9. Chemistry showed a bicarbonate of 31 with a creatinine of 1.02. Glucose was elevated at 146 and BNP was 116. UA was unremarkable. Chest x-ray showed bilateral infiltrates and EKG showed sinus tachycardia. Patient was given DuoNebs, Tylenol and antibiotics. Patient was also given supplemental oxygen and admitted to the floor for further evaluation. Since being admitted to the hospital, patient feels subjectively slightly improved compared to previous. Patient does state that she has had a cough, but states it is largely nonproductive. Patient is on triple therapy at home for reported diagnosis of COPD. However, patient estimates that she has only had 3 packs of cigarettes in her entire life. Patient has had a significant cardiac history including pulmonary hypertension and does take diuretics on a routine basis. Review of systems otherwise negative from a constitutional, HEENT, respiratory, cardiovascular, GI, genitourinary, musculoskeletal, skin, neurologic, psychiatric and hematologic system unless stated above. 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 FPC use of drug Non-STEMI (non-ST elevated myocardial infarction) ADAIR (obstructive sleep apnea) Palpitations Paroxysmal atrial fibrillation Paroxysmal tachycardia Pulmonary embolism Secondary pulmonary arterial hypertension Segmental and somatic dysfunction of lumbar region Segmental and somatic dysfunction of pelvic region Segmental and somatic dysfunction of thoracic region Syncope and collapse Thoracic aortic aneurysm VTE (venous thromboembolism) Home Medications ascorbic acid (vitamin C) 500 mg tablet 500 mg PO DAILY supplement 05/12/17 [History Last Taken 09/13/18] allopurinol 100 mg tablet 100 mg PO DAILYCM gout 09/13/18 [History Last Taken 09/13/18] cyanocobalamin (vitamin B-12) 1,000 mcg capsule 1,000 mcg PO DAILY supplement 09/13/18 [History Last Taken 09/12/18] methenamine hippurate 1 gram tablet 1 gm PO BID 09/13/18 [History Last Taken 09/13/18] furosemide 40 mg tablet 80 mg PO BID water pill 06/20/20 [History Last Taken Unknown] icosapent ethyl 1 gram capsule (Vascepa) 2 g PO BID hyperlipidemia 06/20/20 [History Last Taken Unknown] esomeprazole magnesium 40 mg capsule,delayed release 40 mg PO DAILY 03/28/21 [History Last Taken Unknown] levothyroxine 88 mcg tablet 88 mcg PO DAILY 03/28/21 [History Last Taken Unknown] mirabegron 50 mg tablet,extended release 24 hr (Myrbetriq) 50 mg PO DAILY 03/28/21 [History Last Taken Unknown] linaclotide 145 mcg capsule (Linzess) 145 mcg PO DAILY PRN PRN Constipation 12/15/21 [History Last Taken Unknown] nitroglycerin 0.4 mg sublingual tablet 0.4 mg sublingual PRN PRN Chest Pain 12/15/21 [History Last Taken Unknown] acetaminophen 325 mg tablet (Tylenol) 650 mg (2 x 325 mg) PO Q6H PRN PRN Pain Score 1-10/Temp > 100.7 F #0 tabs 12/17/21 [Rx Last Taken Unknown] benzonatate 100 mg capsule 100 mg PO Q4H PRN PRN Cough #0 caps 12/17/21 [Rx Last Taken Unknown] potassium chloride 20 mEq tablet,extended release 40 meq PO TID 01/07/22 [History Last Taken Unknown] amlodipine 5 mg tablet See Rx Instructions .Route .COMPLEX #28 tabs 03/19/23 [Rx Last Taken Unknown] isosorbide mononitrate 60 mg tablet,extended release 24 hr See Rx Instructions .Route .COMPLEX #28 TABLETS 03/19/23 [Rx Last Taken Unknown] metoprolol tartrate 50 mg tablet 50 mg PO BID #60 tabs 03/19/23 [Rx Last Taken Unknown] diltiazem HCl 60 mg tablet 60 mg PO .Q12 10/11/23 [History Last Taken Unknown] ipratropium bromide 42 mcg (0.06 %) nasal spray 2 spray intranasal DAILY 10/11/23 [History Last Taken Unknown] warfarin 2.5 mg tablet 3 mg PO DAILY blood thinner 10/11/23 [History Last Taken Unknown] aspirin 81 mg tablet,delayed release (Adult Aspirin Regimen) 81 mg PO DAILY blood thinner 10/21/23 [History Last Taken Unknown] chlorthalidone 25 mg tablet 12.5 mg PO DAILY diuretic 10/21/23 [History Last Taken Unknown] sildenafil (pulm.hypertension) 20 mg tablet 20 mg PO TID pulmonary htn 10/21/23 [History Last Taken Unknown] albuterol sulfate 90 mcg/actuation aerosol inhaler (Ventolin HFA) 2 inh inhalation Q4H PRN shortness of breath or wheezing 11/01/23 [History Last Taken Unknown] budesonide-formoterol HFA 160 mcg-4.5 mcg/actuation aerosol inhaler (Symbicort) 2 inh inhalation BID COPD 11/01/23 [History Last Taken Unknown] ipratropium 0.5 mg-albuterol 3 mg (2.5 mg base)/3 mL nebulization soln 3 ml inhalation Q6H.RT PRN shortness of breath 11/01/23 [History Last Taken Unknown] isosorbide dinitrate 30 mg tablet 60 mg PO DAILY heart 11/01/23 [History Last Taken Unknown] tiotropium bromide 18 mcg capsule with inhalation device (Spiriva with HandiHaler) 1 cap inhalation DAILY COPD 11/01/23 [History Last Taken Unknown] warfarin 3 mg tablet 3 mg PO DAILY blood thinner 11/01/23 [History Last Taken Unknown] Allergy/AdvReac Type Severity Reaction Status Date / Time ibuprofen Allergy Unknown Verified 10/21/23 09:03 chlorthalidone AdvReac Intermediate Really Verified 10/21/23 09:03 dizzy and lightheaded Family History Father Myocardial infarction hx black lung Mother CHF (congestive heart failure) Sister CAD (coronary artery disease) Hx CABG Myocardial infarction Diabetes CHF (congestive heart failure) Brother FH: ALS (amyotrophic lateral sclerosis) Brother pacemaker Surgical History History of appendectomy History of colonoscopy History of coronary artery stent placement (11/2013) History of dilation and curettage History of hysterectomy History of left heart catheterization (07/20/20) Social History housing: group home Smoking Status: Never smoker alcohol intake: never substance use type: does not use diet: low salt caffeine: No what type of physical activity do you participate in: none seatbelt use: always do you feel safe at home: Yes ROS ROS Narrative See HPI Physical Exam Narrative Lying flat in bed without respiratory difficulty Const alert, oriented x3 and no apparent distress Constitutional Narrative: Patient is morbidly obese General Appearance: cooperative, well kempt and well developed Orientation / Consciousness: awake, oriented to person, oriented to place and oriented to time HEENT normocephalic, head/scalp atraumatic and moist oral mucous membranes HEENT Narrative: Nasal cannula oxygen in place Eyes PERRL, EOMs intact bilaterally and conjunctivae normal Neck supple, no JVD, thyroid normal and no carotid bruits General: trachea midline Resp no retractions and no use of accessory muscles Auscultation: diminished lung sounds; Negative for rales, rhonchi or wheezes Cardio regular rate, regular rhythm, S1 normal heart sound, S2 normal heart sound, no murmurs, no rub and no gallops GI normal to inspection, nondistended, normoactive bowel sounds, soft to palpation, non-tender and non-distended Extremity General Extremity: edema; Negative for clubbing Skin no rashes or lesions noted General Skin Exam: no breakdown Neuro oriented x3, CN's II-XII intact bilaterally, moves all extremities, no focal motor deficits and no sensory deficits noted Sensorium / Orientation: awake, alert, oriented to person, oriented to place and oriented to time Speech: speech normal Psych affect normal Medical Records Data Attestation: I reviewed the patient's medical records Medical records narrative: Review of the medical record shows patient has had significant eosinophilia dating back as far as February 2022. Patient was as high as 12.3% eosinophils, but has consistently had a value above 5.7% eosinophils. No PFTs available for review. Lab / Micro Data Attestation: I reviewed the patient's lab results. 11/02/23 07:41 11/02/23 07:41 Labs: Laboratory Results - last 24 hr 11/03/23 09:20: PT 32.2 H, INR 3.1 Micro: Microbiology 11/01/23 19:10 Urine Catheter - Catheter Urine Culture - Final Culture exhibits no growth. 11/01/23 23:36 Mucosa - Nasopharyngeal Respiratory Panel (PCR) - Final Rhythm Strip Rhythm Strip: Sinus Tach Rate: 107 Ectopy: None Imaging Radiology Impression Chest X-Ray 11/03/23 05:55 IMPRESSION: No change bilateral infiltrates. Electronically Signed: Alexandria Vieyra MD at 7:49 EST , Bilateral infiltrates noted on multiple imaging studies. Charges/Coding Visit Charges Inpatient E&M: 13174 Init Hosp L2
--- NOTE | 2023-11-03 14:32 | CASEMGMT ---
TCU accepted patient. Plan: d/c to [facility] TCU under skilled level of care. Billie JAMES
[2023-11-03] MEDS: 0.9% Saline Lock 10 ML Syringe IV (14:41)
--- NOTE | 2023-11-03 17:48 | PCM.PN.HOSP ---
Reason for Visit Reason for Visit: Diagnoses Pneumonia, unspecified organism (11/01/23) Chronic obstructive pulmonary disease with (acute) exacerbation (11/01/23) Hypoxemia (11/01/23) Subjective Subjective Patient was seen and examined today, she still remains on nasal cannula oxygen at this time. I had pulmonary medicine see the patient and they felt that the patient had an pneumonia and recommended continuing antibiotic treatment, they also felt that the patient could have undiagnosed asthma. Objective Data Objective Data Vital Signs: Vital Signs Temp Pulse Resp BP Pulse Ox O2 Del Method O2 Flow Rate 98.7 F 88 18 141/55 H 94 Nasal Cannula 4 11/03/23 17:31 11/03/23 17:31 11/03/23 17:31 11/03/23 17:31 11/03/23 17:31 11/03/23 17:35 11/03/23 17:35 Oxygen Flow Rate (L/min) 4 Oxygen Delivery Method Nasal Cannula Weight: 114.1 kg Body Mass Index (BMI) 43.2 Intake & Output: Intake and Output for Last 24 Hours 11/01/23 11/02/23 11/03/23 23:59 23:59 23:59 Intake Total 500 / 740 2130 / 2130 1630 / 1630 Output Total 575 / 575 Balance 500 / 390 1555 / 1555 1630 / 1630 Lab / Micro Data 11/02/23 07:41 11/02/23 07:41 Labs: Laboratory Results - last 24 hr 11/03/23 09:20: PT 32.2 H, INR 3.1 Micro: Microbiology 11/01/23 19:10 Urine Catheter - Catheter Urine Culture - Final Culture exhibits no growth. 11/01/23 23:36 Mucosa - Nasopharyngeal Respiratory Panel (PCR) - Final 11/01/23 19:10 Urine Catheter - Catheter Legionella Antigen - Final 11/01/23 19:10 Urine Catheter - Catheter Streptococcus pneumoniae Antigen (M - Final 11/01/23 19:10 Mucosa - Nasopharyngeal SARS-CoV-2, Influenza & RSV (PCR) - Final Radiography Diagnostic Testing: Radiology Impression Chest X-Ray 11/03/23 05:55 IMPRESSION: No change bilateral infiltrates. Electronically Signed: Alexandria Vieyra MD at 7:49 EST , Rhythm Strip Rhythm Strip: Sinus Tach Rate: 107 Ectopy: None Physical Exam Narrative alert, oriented x3 and no apparent distress Constitutional Narrative: Patient is morbidly obese General Appearance: cooperative, well kempt and well developed Orientation / Consciousness: awake, oriented to person, oriented to place and oriented to time HEENT normocephalic, head/scalp atraumatic and moist oral mucous membranes Eyes PERRL, EOMs intact bilaterally and conjunctivae normal Neck supple, no JVD, thyroid normal and no carotid bruits General: trachea midline Resp normal respiratory effort, no retractions and no use of accessory muscles Resp Narrative: Breath sounds are distant bilaterally Auscultation: Negative for rales, rhonchi or wheezes Cardio regular rate, regular rhythm, S1 normal heart sound, S2 normal heart sound, no murmurs, no rub and no gallops GI normal to inspection, nondistended, normoactive bowel sounds, soft to palpation, non-tender and non-distended Extremity no clubbing, cyanosis or edema Skin no rashes or lesions noted General Skin Exam: no breakdown Neuro oriented x3, CN's II-XII intact bilaterally, moves all extremities, no focal motor deficits and no sensory deficits noted Sensorium / Orientation: awake, alert, oriented to person, oriented to place and oriented to time Speech: speech normal Psych affect normal Assessment & Plan Assessment/Plan (1) Hypoxic: (2) COPD exacerbation: PLAN: Plan 1. Bilateral pneumonia-patient remains on Zithromax and Rocephin at this time, chest x-ray today showed no change in her bilateral infiltrates., Patient's white blood cell count was normal today #2 exacerbation of COPD-patient remains on aerosol treatments and IV corticosteroids #3 paroxysmal atrial fibs-patient is on warfarin at this time, her INR therapeutic today, I have restarted her Coumadin. #4 hypothyroidism-patient is on Synthroid #5 essential hypertension-patient will remain on her current medications #6 acute debility-secondary to multiple medical problems, patient will be seen by PT and OT, the current plan is for the patient to go to TCU for short-term rehab services. Patient is currently in assisted living. #7 morbid obesity-complicates care, medical course, recovery, and prognosis Total clinical time spent by myself addressing the patient's medical issues, reviewing all of her data, and collaborating with patient's care team: 35 minutes Charges/Coding Visit Charges Inpatient E&M: 35443 Subs Hosp L2
[2023-11-03] MEDS: oxyCODONE 5 MG Tablet PO (21:40)
[2023-11-03] MEDS: Azithromycin 500 MG in Dextrose 5%-Water (250mL Bag) 250 ML 250 MG IV (22:16)
[2023-11-03] MEDS: Ceftriaxone 2 GM in 0.9% Normal Saline (50mL MB+) 50 ML IV (22:17)
[2023-11-04] VITALS (8 sets, daily range): BP systolic 113–134; BP diastolic 52–59; PULSE 66–89; RESP 16–18; TEMP 36.4–36.7; O2SAT 92–96
[2023-11-04] MEDS: Levothyroxine 88 MCG Tablet PO (05:13)
[2023-11-04] MEDS: Potassium Chloride Oral Tablet 20 MEQ 40 MEQ PO ×2 (05:13→12:35)
[2023-11-04] MEDS: Nystatin Powder 15gm Bottle 1 APPLIC TOPICAL ×2 (05:13→12:34)
[2023-11-04] MEDS: Menthol/Lanolin/Calamine/Znox 113 GM Tube 1 APPLIC TOPICAL ×2 (05:13→12:33)
[2023-11-04] MEDS: SILDENAFIL CITRATE 20 MG TABLET PO ×2 (05:19→12:36)
[2023-11-04] MEDS: Benzonatate 100 MG Capsule 200 MG PO ×2 (05:20→12:36)
[2023-11-04] MEDS: Acetaminophen 325 MG Tablet 650 MG PO (05:25)
[2023-11-04 07:23] LABS: Absolute Lymphocyte Count 0.53 X10^3/uL (0.83-4.51); Absolute Neutrophil Count 10.9 X10^3/uL (2.0-7.7); Basophil# 0.02 X10^3/uL; Basophil% 0.2 % (0-1); Lymphocyte # 0.53 X10^3/ul (0.83-4.51); Lymphocyte % 4.4 % (19-41); Mean Corp Hgb Conc 31.4 g/dL (32-36); Mean Corpuscular Hgb 31.4 pg (27.0-32.0); Mean Platelet Vol. 10.9 fl (6.2-12.0); Monocyte# 0.63 X10^3/uL; Monocyte% 5.2 % (0-10); NRBC Flagged by Analyzer 0 % (0-5); Neutrophil # 10.85 X10^3/uL (2.7-7.7); Neutrophil % 89.5 % (47-70); POSITIVE DIFFERENTIAL YES; Platelet Count 274 K/mm3 (150-450); RBC Distribution Width CV 14.1 % (11.6-14.6); RBC Distribution Width SD 51.8 fl (35.1-43.9); White Blood Count 12.1 K/mm3 (4.4-11.0)
[2023-11-04 07:35] LABS: Anion Gap 8 (5-15); BUN 44 mg/dL (7-18); BUN/Creat Ratio 34.4 RATIO (10-20); Calcium,Total 10.6 mg/dL (8.5-10.1); Chloride 108 mmol/L (98-107); Creatinine, Serum 1.28 mg/dL (0.55-1.02); EST Glomerular Filtration Rate 42 mL/min (>60); Est Glom Filt Rate - Afr Amer 51 mL/min (>60); Estimated Creatinine Clearance 37.63 ml/min; Glucose 183 mg/dL (74-106); Potassium 4.7 mmol/L (3.5-5.1); Sodium Level 143 mmol/L (136-145)
[2023-11-04] MEDS: Ipratropium/Albuterol Sulfate 3 ML AMPUL.NEB INHALATION ×2 (07:42→14:05)
[2023-11-04] MEDS: Allopurinol 100 MG Tablet PO (08:55)
[2023-11-04] MEDS: Ipratropium Bromide 0.06% NASAL SPRAY 2 SPRAY NASAL (08:56)
[2023-11-04] MEDS: dilTIAZem 60 MG Tablet PO (08:57)
[2023-11-04] MEDS: Methenamine Hippurate 1 GM Tablet PO (08:59)
[2023-11-04] MEDS: Isosorbide Mononitrate 60 MG Tablet PO (08:59)
[2023-11-04] MEDS: amLODIPine 5 MG Tablet PO (08:59)
[2023-11-04] MEDS: Furosemide 80 MG Tablet PO (09:00)
[2023-11-04] MEDS: Metoprolol Tartrate 50 MG Tablet PO (09:00)
[2023-11-04] MEDS: guaiFENesin 1,200 MG Tablet 1200 MG PO (09:00)
[2023-11-04] MEDS: Pantoprazole Sodium 40 MG Tablet PO (09:01)
[2023-11-04] MEDS: Ascorbic Acid 500 MG Tablet PO (09:02)
[2023-11-04] MEDS: Cyanocobalamin 500 MCG Tablet 1000 MCG PO (09:02)
[2023-11-04 09:08] LABS: International Normalized Ratio 2.7
--- NOTE | 2023-11-04 09:30 | NURSING ---
tele:NC.22, QRS0.07, QT.40, RR0.91-SR w/AVB
--- NOTE | 2023-11-04 12:01 | CASEMGMT ---
ANNMARIE notified Avenue that patient is going to [facility] TCU for short term rehab. Plan: d/c to [facility] TCU under skilled level of care. Billie JAMES
--- NOTE | 2023-11-04 13:37 | PCM.TXEXTCAR ---
Diet Diet Order/Speech Therapy: 11/01/23 21:35 Diet: Cardiac - Heart Healthy Food consistency:: Regular Liquid Consistency:: Regular/Thin Routine Orders/Code Status O2 Liters per Minute: 2 O2 Frequency: Continuous Code Status: DNRCC-A (no intubation) Therapies Weight Bearing: Full weight bearing Physical Therapy: Eval and Treat Occupational Therapy: Eval and Treat Problem/Diagnosis (1) Hypoxic: Status: Acute Code(s): R09.02 - Hypoxemia (2) COPD exacerbation: Status: Chronic Code(s): J44.1 - Chronic obstructive pulmonary disease with (acute) exacerbation Plan 1. Bilateral pneumonia-patient will finish up a course of antibiotics with Augmentin #2 exacerbation of COPD-patient remains on aerosol treatments and p.o. prednisone #3 paroxysmal atrial fibs-patient is on warfarin at this time, her INR therapeutic today, I have restarted her Coumadin. #4 hypothyroidism-patient is on Synthroid #5 essential hypertension-patient will remain on her current medications #6 acute debility-secondary to multiple medical problems, patient will be seen by PT and OT, the current plan is for the patient to go to TCU for short-term rehab services. Patient is currently in assisted living. #7 morbid obesity-complicates care, medical course, recovery, and prognosis #8 pulmonary hypertension-patient is on sildenafil Total clinical time spent by myself addressing the patient's medical issues, reviewing all of her data, and collaborating with patient's care team: 35 minutes Allergies/Procedures Done in Hospital Allergies ibuprofen Allergy (Verified 10/21/23 09:03) Unknown chlorthalidone Adverse Reaction (Intermediate, Verified 10/21/23 09:03) Really dizzy and lightheaded Procedures: None Type of Care/Length of Stay Estimated LOS: Convalescent Care Less Than 30 days Type of Care Needed: Skilled Rehab Potential: Good Prognosis: Good Additional Orders/Day of Discharge H&P will serve as current which was dated: 11/01/23 Day of Discharge: 11/04/23 Discharge Plan Admission Admit Date/Time: 11/01/23 20:38 Primary Reason for Your Visit: Pneumonia Attending Provider: Niranjan Norton Primary Care Provider: Aditya Hope [employer] Providers: Ruddy Her Discharge Orders/Prescriptions Prescriptions: New ipratropium-albuterol 0.5 mg-3 mg(2.5 mg base)/3 mL Solution For Nebulization 3 ml inhalation Q6HWA.RT Qty: 0 0RF nystatin [Nyamyc] 100,000 unit/gram Powder 1 applic topical TID Qty: 0 0RF Protocol: *Topical Application Instructions APPLICATION INSTRUCTIONS: to groin Deep Sea Nasal 0.65 % Aerosol,[place] 2 spray NASAL Q4H PRN PRN (Reason: NASAL DRYNESS) Qty: 0 0RF menthol-zinc oxide [Calmoseptine] 0.44-20.6 % Ointment 1 applic topical TID Qty: 0 0RF Protocol: *Topical Application Instructions APPLICATION INSTRUCTIONS: apply to groin area prednisone 20 mg tablet 20 mg PO DAILY Qty: 5 0RF Rx Instructions: 20 mg daily starting 11/05/2023, discontinue after 5 doses amoxicillin-pot clavulanate [Augmentin] 500-125 mg tablet 1 tab PO TID Qty: 10 0RF Rx Instructions: 1 3 times a day with meals starting with supper on 11/04/2023, administer 10 doses then discontinue Continued furosemide 40 mg tablet 80 mg PO BID icosapent ethyl [Vascepa] 1 gram capsule 2 g PO BID potassium chloride 20 mEq tablet extended release 40 meq PO TID aspirin [Adult Aspirin Regimen] 81 mg tablet,delayed release (DR/EC) 81 mg PO DAILY sildenafil (pulm.hypertension) 20 mg tablet 20 mg PO TID Rx Instructions: administer doses at least 4-6 hours apart ascorbic acid (vitamin C) 500 MG tablet 500 mg PO DAILY allopurinol 100 MG tablet 100 mg PO DAILYCM methenamine hippurate 1 GM tablet 1 gm PO BID Patient Comments: TAKE 1 TABLET BY MOUTH TWICE A DAY cyanocobalamin (vitamin B-12) 1,000 MCG capsule 1,000 mcg PO DAILY levothyroxine 88 mcg tablet 88 mcg PO DAILY esomeprazole magnesium 40 mg capsule,delayed release(DR/EC) 40 mg PO DAILY Myrbetriq 50 mg tablet extended release 24 hr 50 mg PO DAILY nitroglycerin 0.4 mg tablet, sublingual 0.4 mg sublingual PRN PRN (Reason: Chest Pain) acetaminophen [Tylenol] 325 mg Tablet 650 mg PO Q6H PRN PRN (Reason: Pain Score 1-10/Temp > 100.7 F) Qty: 0 0RF benzonatate 100 mg Capsule 100 mg PO Q4H PRN PRN (Reason: Cough) Qty: 0 0RF diltiazem HCl 60 mg tablet 60 mg PO .Q12 ipratropium bromide 42 mcg (0.06 %) spray,non-aerosol 2 spray INTRANASAL DAILY warfarin 2.5 mg tablet 3 mg PO DAILY Rx Instructions: PT STATES THAT HER DOSE MAY HAVE CHANGED warfarin 3 mg tablet 3 mg PO DAILY metoprolol tartrate 50 mg tablet 50 mg PO BID Qty: 60 11RF isosorbide mononitrate 60 mg tablet extended release 24 hr See Rx Instructions .ROUTE .COMPLEX Qty: 28 11RF Dose Instruction: TAKE 1 TABLET BY MOUTH DAILY Rx Instructions: TAKE 1 TABLET BY MOUTH DAILY amlodipine 5 mg tablet See Rx Instructions .ROUTE .COMPLEX Qty: 28 11RF Dose Instruction: TAKE 1 TABLET BY MOUTH DAILY Rx Instructions: TAKE 1 TABLET BY MOUTH DAILY Discontinued chlorthalidone 25 mg tablet 12.5 mg PO DAILY Linzess 145 mcg capsule 145 mcg PO DAILY PRN PRN (Reason: Constipation) isosorbide dinitrate 30 mg tablet 60 mg PO DAILY Rx Instructions: allow nitrate-free interval of 12-14 hrs per 24-hr period ipratropium-albuterol 0.5 mg-3 mg(2.5 mg base)/3 mL Solution For Nebulization 3 ml inhalation Q6H.RT PRN (Reason: shortness of breath) albuterol sulfate [Ventolin HFA] 90 mcg/actuation HFA aerosol inhaler 2 inh inhalation Q4H PRN (Reason: shortness of breath or wheezing) budesonide-formoterol [Symbicort] 160-4.5 mcg/actuation HFA aerosol inhaler 2 inh inhalation BID tiotropium bromide [Spiriva with HandiHaler] 18 mcg capsule, w/inhalation device 1 cap inhalation DAILY Rx Instructions: puncture 1 cap using device; one dose = 2 inhalations Referrals / Follow Up: Aditya Hope Chi, MD [Primary Care Provider] - Disposition Disposition (needs filled in before D/C Order can be placed[facility]
--- NOTE | 2023-11-04 14:09 | DS.PCM_ITS ---
Providers Date of Admission: 11/01/23 Date of Discharge: 11/04/23 Primary Care Physician: Dr. Aditya Hope MD Reason For Visit: B/L PNEUMONIA Diagnosis Discharge Diagnosis (1) Hypoxic: Status: Acute Code(s): R09.02 - Hypoxemia (2) COPD exacerbation: Status: Chronic Code(s): J44.1 - Chronic obstructive pulmonary disease with (acute) exacerbation Plan 1. Bilateral pneumonia-patient will finish up a course of antibiotics with Augmentin #2 exacerbation of COPD-patient remains on aerosol treatments and p.o. prednis one #3 paroxysmal atrial fibs-patient is on warfarin at this time, her INR therapeutic today, I have restarted her Coumadin. #4 hypothyroidism-patient is on Synthroid #5 essential hypertension-patient will remain on her current medications #6 acute debility-secondary to multiple medical problems, patient will be seen by PT and OT, the current plan is for the patient to go to TCU for short-term rehab services. Patient is currently in assisted living. #7 morbid obesity-complicates care, medical course, recovery, and prognosis #8 pulmonary hypertension-patient is on sildenafil Total clinical time spent by myself addressing the patient's medical issues, reviewing all of her data, and collaborating with patient's care team: 35 minutes Hospital Course Operations None Procedures None Summary of Care Provided Minutes Spent on Discharge: 31 Hospital Course: This 88-year-old white female was seen in the emergency room at [facility] complaining of shortness of breath. Chest x-ray was obtained and shows evidence of bilateral pneumonia, CBC reveals an elevated white blood cell count of 14.6, beta natruretic peptide was slightly elevated. Patient was admitted to PCU and placed on IV antibiotics, she was given aerosol treatments and placed on IV corticosteroids patient was seen by PT and OT. Patient was felt to be appropriate to go to an extended care facility for short-term rehab services, she had been living in assisted living. Arrangements were made for the patient to go to TCU. On 11/04/2023, patient was seen and examined:alert, oriented x3 and no apparent distress Constitutional Narrative: Patient is morbidly obese General Appearance: cooperative, well kempt and well developed Orientation / Consciousness: awake, oriented to person, oriented to place and oriented to time HEENT normocephalic, head/scalp atraumatic and moist oral mucous membranes Eyes PERRL, EOMs intact bilaterally and conjunctivae normal Neck supple, no JVD, thyroid normal and no carotid bruits General: trachea midline Resp normal respiratory effort, no retractions and no use of accessory muscles Resp Narrative: Breath sounds are distant bilaterally Auscultation: Negative for rales, rhonchi or wheezes Cardio regular rate, regular rhythm, S1 normal heart sound, S2 normal heart sound, no murmurs, no rub and no gallops GI normal to inspection, nondistended, normoactive bowel sounds, soft to palpation, non-tender and non-distended Extremity no clubbing, cyanosis or edema Skin no rashes or lesions noted General Skin Exam: no breakdown Neuro oriented x3, CN's II-XII intact bilaterally, moves all extremities, no focal motor deficits and no sensory deficits noted Sensorium / Orientation: awake, alert, oriented to person, oriented to place and oriented to time Speech: speech normal Psych affect normal Patient was transferred to TCU in stable condition on 11/04/2023 Weight / BMI Weight Weight: 114.1 kg Body Mass Index (BMI) 43.2 ABG / Lab / Microbiology Data 11/04/23 06:55 11/04/23 06:55 Laboratory: Laboratory Results - last 24 hr 11/04/23 06:55: WBC 12.1 H, RBC 3.50 L, Hgb 11.0 L, Hct 35.0 L, MCV 100.0 H, MCH 31.4, MCHC 31.4 L, RDW Std Deviation 51.8 H, RDW Coeff of Robbi 14.1, Plt Count 274, MPV 10.9, Immature Gran % (Auto) 0.700, Neut % (Auto) 89.5 H, Lymph % (Auto) 4.4 L, Ogle % (Auto) 5.2, Eos % (Auto) 0.0, Baso % (Auto) 0.2, Absolute Neuts (auto) 10.9 H, Absolute Lymphs (auto) 0.53 L, Nucleated RBC % 0, PT 29.0 H , INR 2.7, Sodium 143, Potassium 4.7, Chloride 108 H, Carbon Dioxide 27.0, Anion Gap 8, BUN 44 H, Creatinine 1.28 H, Estim Creat Clear Calc 37.63, Est GFR (MDRD) Af Amer 51 L, Est GFR (MDRD) Non-Af 42 L, BUN/Creatinine Ratio 34.4 H, Glucose 183 H, Calcium 10.6 H Microbiology: Microbiology 11/01/23 19:30 Blood Culture (Wb) - Anticubital Left Blood Culture - Preliminary No growth in 48 hours. 11/01/23 19:05 Blood Culture (Wb) - Anticubital Left Blood Culture - Preliminary No growth in 48 hours. 11/01/23 19:10 Urine Catheter - Catheter Urine Culture - Final Culture exhibits no growth. 11/01/23 23:36 Mucosa - Nasopharyngeal Respiratory Panel (PCR) - Final 11/01/23 19:10 Urine Catheter - Catheter Legionella Antigen - Final 11/01/23 19:10 Urine Catheter - Catheter Streptococcus pneumoniae Antigen (M - Final 11/01/23 19:10 Mucosa - Nasopharyngeal SARS-CoV-2, Influenza & RSV (PCR) - Final Meaningful Use Info Meaningful Use Diagnoses (Choose all that apply): None applicable Discharge Plan Admission Admit Date/Time: 11/01/23 20:38 Primary Reason for Your Visit: Pneumonia Attending Provider: Niranjan Norton Primary Care Provider: Aditya Hope Chi Consulting Providers: Ruddy Her Discharge Orders/Prescriptions Prescriptions: Discontinued chlorthalidone 25 mg tablet 12.5 mg PO DAILY Linzess 145 mcg capsule 145 mcg PO DAILY PRN PRN (Reason: Constipation) isosorbide dinitrate 30 mg tablet 60 mg PO DAILY Rx Instructions: allow nitrate-free interval of 12-14 hrs per 24-hr period ipratropium-albuterol 0.5 mg-3 mg(2.5 mg base)/3 mL Solution For Nebulization 3 ml inhalation Q6H.RT PRN (Reason: shortness of breath) albuterol sulfate [Ventolin HFA] 90 mcg/actuation HFA aerosol inhaler 2 inh inhalation Q4H PRN (Reason: shortness of breath or wheezing) budesonide-formoterol [Symbicort] 160-4.5 mcg/actuation HFA aerosol inhaler 2 inh inhalation BID tiotropium bromide [Spiriva with HandiHaler] 18 mcg capsule, w/inhalation device 1 cap inhalation DAILY Rx Instructions: puncture 1 cap using device; one dose = 2 inhalations Referrals / Follow Up: Aditya Hope Chi, MD [Primary Care Provider] - Disposition Disposition (needs filled in before D/C Order can be placed): [facility] Facility Charges/Coding Visit Charges Inpatient E&M: 08351 Disch Hosp >30min
--- NOTE | 2023-11-04 14:57 | CASEMGMT ---
Patient is ready for discharge to [facility] TCU. Plan: d/c to [facility] TCU under skilled level of care. Billie JAMES
== END 2023-11-04 15:12 | disposition skilled nursing facility (03) | DRG 190 ==
LOC: ED 20:45 → PCU 21:07
PROVIDERS: Internal Medicine Critical Care Medicine; Admitting Provider Internal Medicine; Emergency Provider Emergency Medicine; PCP Family Medicine Geriatric Medicine; Visit Provider Internal Medicine
DX: J44.1 Chronic obstructive pulmonary disease with (acute) exacerbation (principal); J18.9 Pneumonia, unspecified organism; I13.0 Hypertensive heart and chronic kidney disease with heart failure and stage 1 through stage 4 chronic kidney disease, or unspecified chronic kidney disease; I50.32 Chronic diastolic (congestive) heart failure; Z68.41 Body mass index [BMI] 40.0-44.9, adult; I27.21 Secondary pulmonary arterial hypertension; D72.10 Eosinophilia, unspecified; J44.0 Chronic obstructive pulmonary disease with (acute) lower respiratory infection; N18.31 Chronic kidney disease, stage 3a; E66.01 Morbid (severe) obesity due to excess calories; I48.0 Paroxysmal atrial fibrillation; E03.9 Hypothyroidism, unspecified; E78.5 Hyperlipidemia, unspecified; I25.10 Atherosclerotic heart disease of native coronary artery without angina pectoris; G47.33 Obstructive sleep apnea (adult) (pediatric); K21.9 Gastro-esophageal reflux disease without esophagitis; I25.2 Old myocardial infarction; M10.9 Gout, unspecified; Z79.01 Long term (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 anticoagulants; Z95.5 Presence of coronary angioplasty implant and graft; R53.81 Other malaise; Z79.899 Other long term (current) drug therapy; Z79.82 Long term (current) use of aspirin; Z90.49 Acquired absence of other specified parts of digestive tract; Z90.710 Acquired absence of both cervix and uterus; R09.02 Hypoxemia; Z99.89 Dependence on other enabling machines and devices
CPT/HCPCS: 36415; 71045; 80048; 80053; 81001; 83605; 83735; 83880; 84100; 84484; 85025; 85610; 85730; 87040; 87086; 87449; 87631; 87633; 87641; 93005; 94640; 94660; 94668; 97116; 97162; 97166; 97535; 99285; A4216

== ENCOUNTER 2023-11-04 15:26 | Inpatient (IN) | payer MEDICARE, OTHER, SELFPAY ==
[2023-11-04 15:55] VITALS: BP 134/52; PULSE 81; RESP 18; TEMP 36.3; O2SAT 92; BMI 44.2
[2023-11-04] MEDS: Amox/Clavulanate 500 MG Tablet PO (17:45)
[2023-11-04 19:35] VITALS: PULSE 84; RESP 18; O2SAT 93
--- NOTE | 2023-11-04 20:03 | PCM.HP.STD ---
HPI - General General Date of Admission: 11/04/23 Date of Service: 11/04/23 Chief Complaint: Here for rehabilitation. HPI Narrative 11/01/2023 PAULO MILLER, is a 88 Female who presents to [facility] ED with shortness of breath. Worsening SOB x 2 days, called 911. covid negative 2 days prior, cough, yellow sputum. Fever 101.4, 85% pulsox on room air, oxygen 2 liters applied. Duoneb enroute. Chronic leg swelling slightly worse. WBC 14.6, INR 2.9, BNP okay, Troponin okay, UA negative. Chest X-ray showed bilateral pneumonia. Ceftriaxone, Azithromycin given. 11/01/2023 Admit to [facility]. covid negative, flu negative, rsv negative. Ceftriaxone, Azithromycin, sputum culture, blood culture, for bilateral pneumonia. Solu-medrol, aerosols, Mucinex, IS, PEP for COPD exacerbation. 11/02/2023 Prefers TCU for rehabilitation. Continue Ceftriaxone, Azithromycin for bilateral pneumonia. Aerosols, Solu-medrol for COPD. PT/OT for Debility. 11/03/2023 Oxygen per nasal cannula. Pulmonary recommended continuing antibiotics for pneumonia, ? undiagnosed asthma. Ceftriaxone, Azithromycin, CXR unchanged, WBC down. Aerosols, Solu-medrol for COPD. 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 buttermaker use of drug Non-STEMI (non-ST elevated myocardial infarction) ADAIR (obstructive sleep apnea) Palpitations Paroxysmal atrial fibrillation Paroxysmal tachycardia Pulmonary embolism Secondary pulmonary arterial hypertension Segmental and somatic dysfunction of lumbar region Segmental and somatic dysfunction of pelvic region Segmental and somatic dysfunction of thoracic region Syncope and collapse Thoracic aortic aneurysm VTE (venous thromboembolism) Home Medications ascorbic acid (vitamin C) 500 mg tablet 500 mg PO DAILY supplement 05/12/17 [History Last Taken 11/04/23] allopurinol 100 mg tablet 100 mg PO DAILYCM gout 09/13/18 [History Last Taken 11/04/23] cyanocobalamin (vitamin B-12) 1,000 mcg capsule 1,000 mcg PO DAILY supplement 09/13/18 [History Last Taken 11/04/23] methenamine hippurate 1 gram tablet 1 gm PO BID Recurrent UTI's 09/13/18 [History Last Taken 09/13/18] furosemide 40 mg tablet 80 mg PO BID water pill 06/20/20 [History Last Taken 11/04/23] icosapent ethyl 1 gram capsule (Vascepa) 2 g PO BID hyperlipidemia 06/20/20 [History Last Taken 11/04/23] esomeprazole magnesium 40 mg capsule,delayed release 40 mg PO DAILY GERD 03/28/21 [History Last Taken Unknown] levothyroxine 88 mcg tablet 88 mcg PO DAILY Thyroid 03/28/21 [History Last Taken 11/04/23] mirabegron 50 mg tablet,extended release 24 hr (Myrbetriq) 50 mg PO DAILY Bladder 03/28/21 [History Last Taken 11/03/23] nitroglycerin 0.4 mg sublingual tablet 0.4 mg sublingual PRN PRN Chest Pain 12/15/21 [History Last Taken Unknown] acetaminophen 325 mg tablet (Tylenol) 650 mg (2 x 325 mg) PO Q6H PRN PRN Pain Score 1-10/Temp > 100.7 F #0 tabs 12/17/21 [Rx Last Taken Unknown] benzonatate 100 mg capsule 100 mg PO Q4H PRN PRN Cough #0 caps 12/17/21 [Rx Last Taken 11/04/23 12:30] potassium chloride 20 mEq tablet,extended release 40 meq PO TID Supplement 01/07/22 [History Last Taken 11/04/23 12:35] isosorbide mononitrate 60 mg tablet,extended release 24 hr See Rx Instructions .Route .COMPLEX Heart #28 TABLETS 03/19/23 [Rx Last Taken 11/04/23] metoprolol tartrate 50 mg tablet 50 mg PO BID BP #60 tabs 03/19/23 [Rx Last Taken 11/04/23] diltiazem HCl 60 mg tablet 60 mg PO .Q12 BP 10/11/23 [History Last Taken 11/04/23] ipratropium bromide 42 mcg (0.06 %) nasal spray 2 spray intranasal DAILY Allergies 10/11/23 [History Last Taken 11/04/23] warfarin 2.5 mg tablet 3 mg PO DAILY blood thinner 10/11/23 [History Last Taken 11/03/23] aspirin 81 mg tablet,delayed release (Adult Aspirin Regimen) 81 mg PO DAILY blood thinner 10/21/23 [History Last Taken 11/04/23] sildenafil (pulm.hypertension) 20 mg tablet 20 mg PO TID pulmonary htn 10/21/23 [History Last Taken 11/04/23 12:35] warfarin 3 mg tablet 3 mg PO DAILY blood thinner 11/01/23 [History Last Taken Unknown] amlodipine 5 mg tablet 5 mg PO DAILY BP 11/04/23 [History Last Taken 11/04/23] amoxicillin 500 mg-potassium clavulanate 125 mg tablet (Augmentin) 1 tab PO TID Antibiotic #10 tabs 11/04/23 [Rx Last Taken Unknown] ipratropium 0.5 mg-albuterol 3 mg (2.5 mg base)/3 mL nebulization soln 3 ml inhalation Q6HWA.RT SOB #0 mL 11/04/23 [Rx Last Taken 11/04/23 14:05] menthol 0.44 %-zinc oxide 20.6 % topical ointment (Calmoseptine) 1 applic topical TID Skin #0 grams 11/04/23 [Rx Last Taken 11/04/23] nystatin 100,000 unit/gram topical powder (Nyamyc) 1 applic topical TID Skin #0 grams 11/04/23 [Rx Last Taken 11/04/23] prednisone 20 mg tablet 20 mg PO DAILY Inflammation #5 tabs 11/04/23 [Rx Last Taken Unknown] sodium chloride 0.65 % nasal spray aerosol (Deep Sea Nasal) 2 spray NASAL Q4H PRN PRN NASAL DRYNESS #0 mL 11/04/23 [Rx Last Taken Unknown] Allergy/AdvReac Type Severity Reaction Status Date / Time ibuprofen Allergy Unknown Verified 10/21/23 09:03 chlorthalidone AdvReac Intermediate Really Verified 10/21/23 09:03 dizzy and lightheaded Family History Father Myocardial infarction hx black lung Mother CHF (congestive heart failure) Sister CAD (coronary artery disease) Hx CABG Myocardial infarction Diabetes CHF (congestive heart failure) Brother FH: ALS (amyotrophic lateral sclerosis) Brother pacemaker Surgical History History of appendectomy History of colonoscopy History of coronary artery stent placement (11/2013) History of dilation and curettage History of hysterectomy History of left heart catheterization (07/20/20) Social History (Updated 11/04/23 @ 20:[address] Aditya Hope MD) housing: assisted living facility Smoking Status: Never smoker alcohol intake: never substance use type: does not use diet: low salt caffeine: No what type of physical activity do you participate in: none seatbelt use: always do you feel safe at home: Yes ROS Constitutional Constitutional: Denies chills, fever(s) or weight gain ENT HEENT: Denies headache(s), nasal congestion or nasal discharge Cardiovascular Cardiovascular: Denies chest pain or palpitations Respiratory/Chest Respiratory/Chest: Reports dyspnea on exertion and shortness of breath at rest; Denies cough, excessive phlegm production or shortness of breath with exertion Gastrointestinal Gastrointestinal: Denies abdominal pain, nausea or vomiting Genitourinary Genitourinary: Denies dysuria Musculoskeletal Musculoskeletal: Denies joint pain or joint swelling Integumentary Integumentary: Denies rash or wounds Neurologic Neurologic: Denies focal weakness, numbness or tingling Psychiatric Psychiatric: Denies anxiety, auditory hallucinations, depression, homicidal ideation or suicidal ideation Vital Signs Vital Signs Vital Signs: 11/04/23 15:55 Temperature 97.3 F L Temperature Source Temporal Pulse Rate 81 Respiratory Rate 18 Blood Pressure 134/52 H Blood Pressure Mean 79 Blood Pressure Source Monitor Blood Pressure Position Semi-Fowlers Blood Pressure Location Right Arm Pulse Ox 92 Oxygen Delivery Method Nasal Cannula Oxygen Flow Rate (L/min) 2 Weight Weight: 117.027 kg Body Mass Index (BMI) 44.2 Physical Exam Const alert General Appearance: cooperative HEENT normocephalic Eyes PERRL and EOMs intact bilaterally Neck supple, no JVD and no carotid bruits Resp normal respiratory effort, normal air movement and clear to auscultation bilaterally Cardio regular rate and regular rhythm GI normal to inspection, nondistended, normoactive bowel sounds, non-tender and non-distended Extremity normal capillary refill General Extremity: Negative for edema Skin no rashes or lesions noted General Skin Exam: no breakdown Psych affect normal Appearance: appropriate Assessment & Plan Assessment/Plan (1) Debility: (2) Sepsis: (3) Acute respiratory failure with hypoxia: (4) Bilateral pneumonia: (5) COPD exacerbation: (6) (HFpEF) heart failure with preserved ejection fraction: (7) Peripheral vascular disease: (8) Atrial fibrillation: (9) Morbid obesity: (10) Coronary artery disease: (11) Chronic kidney disease, stage 3a: (12) Hyperlipidemia: QUALIFIERS: Hyperlipidemia type: pure hypercholesterolemia Qualified Code(s): E78.00 - Pure hypercholesterolemia, unspecified; E78.0 - Pure hypercholesterolemia (13) Pulmonary hypertension: PLAN: Plan 88 year old female with below past medical history hospitalized for sepsis, acute respiratory failure with hypoxia 2/2 bilateral pneumonia, complicated by copd exacerbation, admitted to TCU with debility, here for rehabilitation, strengthening, prior to discharge to [facility]. Debility - PT/OT. Pain - Tylenol 1000mg q6 prn pain (1-10). Bowel - senna/colace 1 tablet bid, Magnesium citrate 300ml daily prn. Adult immunization - Administer pneumonia vaccine, covid vaccine, flu vaccine as appropriate. DVT prophylaxis - on warfarin. Gout - Allopurinol 100mg daily. Hypertension - Metoprolol 50mg bid, Cardizem 60mg q12, Amlodipine 5mg daily. Bilateral pneumonia - Augmentin 500mg tid thru 11/07/2023. Recurrent UTI - Methenamine 1gm bid, Vitamin C 500mg bid. Cough - Tessalon perles 100mg 14h prn. Atrial fibrillation - Metoprolol 50mg bid, Cardizem 60mg q12, warfarin 3mg daily, monitor INR. HFpEF - Metoprolol 50mg bid, Imdur 60mg daily, Furosemide 80mg bidlx. Allergic Rhinitis - Atrovent 2 sprays daily, Sodium chloride 2 sprays q4 prn. COPD - Duoneb 3ml q6wa, Prednisone taper. Coronary Artery Disease - Metoprolol 50mg bid, Imdur 60mg daily, Warfarin 3mg daily, NTG 0.4mg sl q5m prn. Hypothyroidism - Levothyroxine 88mcg daily. Skin irritation - Calmoseptine topical bid. Tinea Corporis - Nystatin powder topical bid. GERD - Pantoprazole 40mg daily. Hypokalemia - KCL 40meq tid. Pulmonary hypertension - Revatio 20mg tid. Overactive bladder - Gemtasa 75mg daily.
[2023-11-04 22:35] VITALS: BP 141/66; PULSE 91
[2023-11-04] MEDS: Metoprolol Tartrate 50 MG Tablet PO (22:35)
[2023-11-04] MEDS: Methenamine Hippurate 1 GM Tablet PO (22:35)
[2023-11-04] MEDS: dilTIAZem 60 MG Tablet PO (22:38)
[2023-11-04] MEDS: SILDENAFIL CITRATE 20 MG TABLET PO (22:39)
[2023-11-04] MEDS: Senna/Docusate Sodium 1 Tablet PO (22:40)
[2023-11-04] MEDS: Menthol/Lanolin/Calamine/Znox 113 GM Tube 1 APPLIC TOPICAL (22:45)
[2023-11-04] MEDS: Nystatin Powder 15gm Bottle 1 APPLIC TOPICAL (22:46)
[2023-11-04 23:33] VITALS: RESP 12
[2023-11-04] MEDS: Ipratropium/Albuterol Sulfate 3 ML AMPUL.NEB INHALATION (23:36)
[2023-11-05 06:14] LABS: Absolute Neutrophil Count 8.5 X10^3/uL (2.0-7.7); Basophil# 0.01 X10^3/uL; Basophil% 0.1 % (0-1); Hematocrit 30.9 % (37-47); Mean Corp Hgb Conc 32.4 g/dL (32-36); Mean Corpuscular Hgb 32.2 pg (27.0-32.0); Mean Corpuscular Volume 99.4 fL (81-99); Mean Platelet Vol. 11.1 fl (6.2-12.0); Monocyte# 0.91 X10^3/uL; Monocyte% 9.2 % (0-10); NRBC Flagged by Analyzer 0 % (0-5); Neutrophil # 8.45 X10^3/uL (2.7-7.7); Neutrophil % 85.5 % (47-70); POSITIVE DIFFERENTIAL YES; Platelet Count 228 K/mm3 (150-450); RBC Distribution Width SD 51.2 fl (35.1-43.9); Red Blood Count 3.11 M/mm3 (4.2-5.4); White Blood Count 9.9 K/mm3 (4.4-11.0)
[2023-11-05] MEDS: Levothyroxine 88 MCG Tablet PO (06:15)
[2023-11-05] MEDS: Furosemide 80 MG Tablet PO ×2 (06:15→13:26)
[2023-11-05] MEDS: SILDENAFIL CITRATE 20 MG TABLET PO ×3 (06:15→21:05)
[2023-11-05] MEDS: Menthol/Lanolin/Calamine/Znox 113 GM Tube 1 APPLIC TOPICAL ×3 (06:26→21:06)
[2023-11-05] MEDS: Nystatin Powder 15gm Bottle 1 APPLIC TOPICAL ×3 (06:26→21:07)
[2023-11-05 06:34] LABS: Prothrombin Time (Protime)PT. 31.3 SECONDS (11.7-14.9)
[2023-11-05 06:36] LABS: Anion Gap 4 (5-15); BUN 49 mg/dL (7-18); BUN/Creat Ratio 39.2 RATIO (10-20); Calcium,Total 9.9 mg/dL (8.5-10.1); Chloride 109 mmol/L (98-107); Creatinine, Serum 1.25 mg/dL (0.55-1.02); EST Glomerular Filtration Rate 43 mL/min (>60); Est Glom Filt Rate - Afr Amer 52 mL/min (>60); Estimated Creatinine Clearance 39.11 ml/min; Glucose 193 mg/dL (74-106); Potassium 4.3 mmol/L (3.5-5.1); Sodium Level 142 mmol/L (136-145)
[2023-11-05 07:05] VITALS: PULSE 75; RESP 15; O2SAT 95
[2023-11-05] MEDS: Ipratropium/Albuterol Sulfate 3 ML AMPUL.NEB INHALATION (07:05)
[2023-11-05] MEDS: Potassium Chloride Oral Tablet 20 MEQ 40 MEQ PO ×3 (09:36→17:20)
[2023-11-05] MEDS: Allopurinol 100 MG Tablet PO (09:37)
[2023-11-05] MEDS: amLODIPine 5 MG Tablet PO (09:37)
[2023-11-05] MEDS: Pantoprazole Sodium 40 MG Tablet PO (09:37)
[2023-11-05 09:38] VITALS: PULSE 89
[2023-11-05] MEDS: Ascorbic Acid 500 MG Tablet PO ×2 (09:38→17:20)
[2023-11-05] MEDS: Methenamine Hippurate 1 GM Tablet PO ×2 (09:38→21:05)
[2023-11-05] MEDS: Metoprolol Tartrate 50 MG Tablet PO ×2 (09:38→21:08)
[2023-11-05] MEDS: Isosorbide Mononitrate 60 MG Tablet PO (09:39)
[2023-11-05] MEDS: Tuberculin,Purif.prot.deriv. 50 TU/ML Vial 0.100000000000000006 ML ID (09:39)
[2023-11-05] MEDS: predniSONE 20 MG Tablet PO (09:39)
[2023-11-05] MEDS: Amox/Clavulanate 500 MG Tablet PO ×3 (09:39→17:20)
[2023-11-05] MEDS: dilTIAZem 60 MG Tablet PO ×2 (09:39→21:08)
[2023-11-05] MEDS: Vibegron 75 MG TABLET PO (09:39)
[2023-11-05] MEDS: Ipratropium Bromide 0.06% NASAL SPRAY 2 SPRAY NASAL (09:40)
[2023-11-05] MEDS: Senna/Docusate Sodium 1 Tablet PO ×2 (09:41→21:05)
[2023-11-05] MEDS: Acetaminophen 500 MG Tablet 1000 MG PO ×2 (09:54→21:15)
[2023-11-05 14:36] VITALS: BP 115/46; PULSE 73; RESP 18; TEMP 36.5; O2SAT 93
--- NOTE | 2023-11-05 18:03 | NURSING ---
Patient expresses to this nurse that she feels done with continuing to prolong life when she feels it is not a quality life and had questions regarding hospice care. She reports she is in chronic pain and going to appointments is painful and she doesn't want placed on more medications and wishes she could take less meds than she is right now. She reports she feels ready to finish fighting and just wants to be comfortable. This nurse asks if she would like me to leave a message with SW about possible hospice referral and patient reports she may just be feeling down today but she is reassured that talking to SW doesn't mean she needs to choose hospice but that they can discuss options with her and answer questions regarding hospice care. Patient agrees to talk to SW and message left for Cydney.
[2023-11-05 21:08] VITALS: BP 146/65; PULSE 84
[2023-11-05 21:11] VITALS: O2SAT 96
[2023-11-05 22:48] VITALS: PULSE 72; RESP 20; O2SAT 93
[2023-11-06] VITALS (8 sets, daily range): BP systolic 133–142; BP diastolic 58–61; PULSE 79–105; RESP 18–24; O2SAT 93–97
[2023-11-06 06:08] LABS: Hematocrit 29.8 % (37-47); Hemoglobin 9.8 g/dL (12.0-15.0)
[2023-11-06] MEDS: Levothyroxine 88 MCG Tablet PO (06:13)
[2023-11-06] MEDS: SILDENAFIL CITRATE 20 MG TABLET PO (06:13)
[2023-11-06] MEDS: Furosemide 80 MG Tablet PO ×2 (06:13→14:46)
[2023-11-06] MEDS: Nystatin Powder 15gm Bottle 1 APPLIC TOPICAL ×3 (06:14→23:01)
[2023-11-06] MEDS: Menthol/Lanolin/Calamine/Znox 113 GM Tube 1 APPLIC TOPICAL ×3 (06:14→23:01)
[2023-11-06 06:34] LABS: Anion Gap 2 (5-15); BUN 47 mg/dL (7-18); BUN/Creat Ratio 42.7 RATIO (10-20); Calcium,Total 9.6 mg/dL (8.5-10.1); Chloride 108 mmol/L (98-107); EST Glomerular Filtration Rate 50 mL/min (>60); Est Glom Filt Rate - Afr Amer 60 mL/min (>60); Estimated Creatinine Clearance 44.44 ml/min; Glucose 141 mg/dL (74-106); Potassium 3.8 mmol/L (3.5-5.1); Sodium Level 141 mmol/L (136-145)
[2023-11-06] MEDS: Ipratropium/Albuterol Sulfate 3 ML AMPUL.NEB INHALATION ×3 (08:30→19:11)
[2023-11-06] MEDS: Potassium Chloride Oral Tablet 20 MEQ 40 MEQ PO (09:02)
[2023-11-06] MEDS: Amox/Clavulanate 500 MG Tablet PO (09:03)
[2023-11-06] MEDS: predniSONE 20 MG Tablet PO (09:03)
[2023-11-06] MEDS: Ascorbic Acid 500 MG Tablet PO (09:03)
[2023-11-06] MEDS: Vibegron 75 MG TABLET PO (09:04)
[2023-11-06] MEDS: Allopurinol 100 MG Tablet PO (09:04)
[2023-11-06] MEDS: dilTIAZem 60 MG Tablet PO ×2 (09:04→22:59)
[2023-11-06] MEDS: Isosorbide Mononitrate 60 MG Tablet PO (09:05)
[2023-11-06] MEDS: Methenamine Hippurate 1 GM Tablet PO (09:05)
[2023-11-06] MEDS: Metoprolol Tartrate 50 MG Tablet PO ×2 (09:06→22:59)
[2023-11-06] MEDS: Pantoprazole Sodium 40 MG Tablet PO (09:06)
[2023-11-06] MEDS: amLODIPine 5 MG Tablet PO (09:06)
[2023-11-06] MEDS: Senna/Docusate Sodium 1 Tablet PO (09:06)
[2023-11-06] MEDS: Ipratropium Bromide 0.06% NASAL SPRAY 2 SPRAY NASAL (09:13)
[2023-11-06 09:16] LABS: International Normalized Ratio 2.8; Prothrombin Time (Protime)PT. 29.8 SECONDS (11.7-14.9)
--- NOTE | 2023-11-06 11:38 | NURSING ---
Web Content Writer Note; Activity Asset: Saadia Murray was admitted to TCU for therapy however during the activity interview she stated she is in so much pain she just wants to rest and do nothing. She has a tablet but just is so much pain she is unable to do anything. Family will visit w/her and bring her what she may need. She will need 1.1 room visit at this time for extra social, mental and physical well-being. Staff will remind her of weekly activities and respect her right to say no.
--- NOTE | 2023-11-06 13:01 | DS.PCM_ITS ---
Providers Date of Admission: 11/04/23 Primary Care Physician: Dr. Aditya Hope MD Reason For Visit: B/L PNEUMONIA Diagnosis Discharge Diagnosis (1) Debility: Status: Acute Code(s): R53.81 - Other malaise (2) Sepsis: Status: Acute Code(s): A41.9 - Sepsis, unspecified organism (3) Acute respiratory failure with hypoxia: Status: Acute Code(s): J96.01 - Acute respiratory failure with hypoxia (4) Bilateral pneumonia: Status: Acute Code(s): J18.9 - Pneumonia, unspecified organism (5) COPD exacerbation: Status: Chronic Code(s): J44.1 - Chronic obstructive pulmonary disease with (acute) exacerbation (6) (HFpEF) heart failure with preserved ejection fraction: Status: Acute Code(s): I50.30 - Unspecified diastolic (congestive) heart failure (7) Peripheral vascular disease: Status: Acute Code(s): I73.9 - Peripheral vascular disease, unspecified (8) Atrial fibrillation: Status: Inactive Code(s): I48.91 - Unspecified atrial fibrillation (9) Morbid obesity: Status: Acute Code(s): E66.01 - Morbid (severe) obesity due to excess calories (10) Coronary artery disease: Status: Acute Code(s): I25.10 - Atherosclerotic heart disease of [place] coronary artery without angina pectoris (11) Chronic kidney disease, stage 3a: Status: Chronic Code(s): N18.31 - Chronic kidney disease, stage 3a (12) Hyperlipidemia: Status: Chronic Code(s): E78.5 - Hyperlipidemia, unspecified Qualifiers: Hyperlipidemia type: pure hypercholesterolemia Qualified Code(s): E78.00 - Pure hypercholesterolemia, unspecified; E78.0 - Pure hyperchole sterolemia (13) Pulmonary hypertension: Status: Acute Code(s): I27.20 - Pulmonary hypertension, unspecified Plan 88 year old female with below past medical history hospitalized for sepsis, acute respiratory failure with hypoxia 2/2 bilateral pneumonia, complicated by copd exacerbation, admitted to TCU with debility, here for rehabilitation, strengthening, prior to discharge to [facility]. * Debility - PT/OT. * Pain - Tylenol 1000mg q6 prn pain (1-10). * Bowel - senna/colace 1 tablet bid, Magnesium citrate 300ml daily prn. * Adult immunization - Administer pneumonia vaccine, covid vaccine, flu vaccine as appropriate. * DVT prophylaxis - on warfarin. * Gout - Allopurinol 100mg daily. * Hypertension - Metoprolol 50mg bid, Cardizem 60mg q12, Amlodipine 5mg daily. * Bilateral pneumonia - Augmentin 500mg tid thru 11/07/2023. * Recurrent UTI - Methenamine 1gm bid, Vitamin C 500mg bid. * Cough - Tessalon perles 100mg 14h prn. * Atrial fibrillation - Metoprolol 50mg bid, Cardizem 60mg q12, warfarin 3mg daily, monitor INR. * HFpEF - Metoprolol 50mg bid, Imdur 60mg daily, Furosemide 80mg bidlx. * Allergic Rhinitis - Atrovent 2 sprays daily, Sodium chloride 2 sprays q4 prn. * COPD - Duoneb 3ml q6wa, Prednisone taper. * Coronary Artery Disease - Metoprolol 50mg bid, Imdur 60mg daily, Warfarin 3mg daily, NTG 0.4mg sl q5m prn. * Hypothyroidism - Levothyroxine 88mcg daily. * Skin irritation - Calmoseptine topical bid. * Tinea Corporis - Nystatin powder topical bid. * GERD - Pantoprazole 40mg daily. * Hypokalemia - KCL 40meq tid. * Pulmonary hypertension - Revatio 20mg tid. * Overactive bladder - Gemtasa 75mg daily. Hospital Course Operations None Procedures None Summary of Care Provided Minutes Spent on Discharge: 35 Hospital Course: 88 year old female with below past medical history hospitalized for sepsis, acute respiratory failure with hypoxia 2/2 bilateral pneumonia, complicated by copd exacerbation, admitted to TCU with debility, here for rehabilitation, strengthening, prior to discharge to [facility]. Resident tired, resident dying, requesting hospice. Discharge to [facility] 11/07/2023 with [facility]. Physical Exam Const alert General Appearance: cooperative HEENT normocephalic Eyes PERRL and EOMs intact bilaterally Neck supple, no JVD and no carotid bruits Resp normal respiratory effort, normal air movement and clear to auscultation bilaterally Cardio regular rate and regular rhythm GI normal to inspection, nondistended, normoactive bowel sounds, non-tender and non-distended Extremity normal capillary refill General Extremity: Negative for edema Skin no rashes or lesions noted General Skin Exam: no breakdown Psych affect normal Appearance: appropriate Weight / BMI Weight Weight: 117.027 kg Body Mass Index (BMI) 44.2 ABG / Lab / Microbiology Data 11/06/23 05:31 11/06/23 05:31 Laboratory: Laboratory Results - last 24 hr 11/06/23 05:31: Hgb 9.8 L, Hct 29.8 L, Sodium 141, Potassium 3.8, Chloride 108 H , Carbon Dioxide 31.0, Anion Gap 2 L, BUN 47 H, Creatinine 1.10 H, Estim Creat Clear Calc 44.44, Est GFR (MDRD) Af Amer 60, Est GFR (MDRD) Non-Af 50 L, BUN/Creatinine Ratio 42.7 H, Glucose 141 H, Calcium 9.6 11/06/23 08:00: PT 29.8 H, INR 2.8 D/C Instructions Discharge Diet: No restrictions Discharge Activity: Return to Normal Activity Weight Bearing Status: Weight bearing as tolerated Additional Instructions: Discharge to [facility] 11/07/2023 with [facility]. Meaningful Use Info Meaningful Use Diagnoses (Choose all that apply): None applicable Discharge Plan Admission Admit Date/Time: 11/04/23 15:26 Primary Reason for Your Visit: Debility. Attending Provider: Aditya Hope Chi Primary Care Provider: Aditya Hope Chi Instructions Additional Instructions / Restrictions: Discharge to [facility] 11/07/2023 with [facility]. Discharge Orders/Prescriptions Prescriptions: Discontinued furosemide 40 mg tablet 80 mg PO BID icosapent ethyl [Vascepa] 1 gram capsule 2 g PO BID potassium chloride 20 mEq tablet extended release 40 meq PO TID aspirin [Adult Aspirin Regimen] 81 mg tablet,delayed release (DR/EC) 81 mg PO DAILY sildenafil (pulm.hypertension) 20 mg tablet 20 mg PO TID Rx Instructions: administer doses at least 4-6 hours apart ascorbic acid (vitamin C) 500 MG tablet 500 mg PO DAILY allopurinol 100 MG tablet 100 mg PO DAILYCM methenamine hippurate 1 GM tablet 1 gm PO BID Patient Comments: TAKE 1 TABLET BY MOUTH TWICE A DAY cyanocobalamin (vitamin B-12) 1,000 MCG capsule 1,000 mcg PO DAILY levothyroxine 88 mcg tablet 88 mcg PO DAILY esomeprazole magnesium 40 mg capsule,delayed release(DR/EC) 40 mg PO DAILY Myrbetriq 50 mg tablet extended release 24 hr 50 mg PO DAILY nitroglycerin 0.4 mg tablet, sublingual 0.4 mg sublingual PRN PRN (Reason: Chest Pain) acetaminophen [Tylenol] 325 mg Tablet 650 mg PO Q6H PRN PRN (Reason: Pain Score 1-10/Temp > 100.7 F) Qty: 0 0RF benzonatate 100 mg Capsule 100 mg PO Q4H PRN PRN (Reason: Cough) Qty: 0 0RF diltiazem HCl 60 mg tablet 60 mg PO .Q12 ipratropium bromide 42 mcg (0.06 %) spray,non-aerosol 2 spray INTRANASAL DAILY warfarin 2.5 mg tablet 3 mg PO DAILY Rx Instructions: PT STATES THAT HER DOSE MAY HAVE CHANGED warfarin 3 mg tablet 3 mg PO DAILY ipratropium-albuterol 0.5 mg-3 mg(2.5 mg base)/3 mL Solution For Nebulization 3 ml inhalation Q6HWA.RT Qty: 0 0RF nystatin [Nyamyc] 100,000 unit/gram Powder 1 applic topical TID Qty: 0 0RF Protocol: *Topical Application Instructions APPLICATION INSTRUCTIONS: to groin Deep Sea Nasal 0.65 % Aerosol,[place] 2 spray NASAL Q4H PRN PRN (Reason: NASAL DRYNESS) Qty: 0 0RF menthol-zinc oxide [Calmoseptine] 0.44-20.6 % Ointment 1 applic topical TID Qty: 0 0RF Protocol: *Topical Application Instructions APPLICATION INSTRUCTIONS: apply to groin area prednisone 20 mg tablet 20 mg PO DAILY Qty: 5 0RF Rx Instructions: 20 mg daily starting 11/05/2023, discontinue after 5 doses amoxicillin-pot clavulanate [Augmentin] 500-125 mg tablet 1 tab PO TID Qty: 10 0RF Rx Instructions: 1 3 times a day with meals starting with supper on 11/04/2023, administer 10 doses then discontinue amlodipine 5 mg tablet 5 mg PO DAILY Rx Instructions: TAKE 1 TABLET BY MOUTH DAILY metoprolol tartrate 50 mg tablet 50 mg PO BID Qty: 60 11RF isosorbide mononitrate 60 mg tablet extended release 24 hr See Rx Instructions .ROUTE .COMPLEX Qty: 28 11RF Dose Instruction: TAKE 1 TABLET BY MOUTH DAILY Rx Instructions: TAKE 1 TABLET BY MOUTH DAILY Referrals / Follow Up: Aditya Hope Chi, MD [Primary Care Provider] - Disposition Disposition (needs filled in before D/C Order can be placed): Hospice in Medical Facility
--- NOTE | 2023-11-06 13:06 | PCM.TXEXTCAR ---
Diet Diet Order/Speech Therapy: 11/04/23 16:42 Diet: Cardiac - Heart Healthy Food consistency:: Regular Liquid Consistency:: Regular/Thin Is pt able to select menu?: Yes Routine Orders/Code Status Code Status: [facility] Wound(s) Abrasions x 2 to right and left sides: Wound Type: Abrasion Therapies Weight Bearing: Weight bearing as tolerated Problem/Diagnosis (1) Debility: Status: Acute Code(s): R53.81 - Other malaise (2) Sepsis: Status: Acute Code(s): A41.9 - Sepsis, unspecified organism (3) Acute respiratory failure with hypoxia: Status: Acute Code(s): J96.01 - Acute respiratory failure with hypoxia (4) Bilateral pneumonia: Status: Acute Code(s): J18.9 - Pneumonia, unspecified organism (5) COPD exacerbation: Status: Chronic Code(s): J44.1 - Chronic obstructive pulmonary disease with (acute) exacerbation (6) (HFpEF) heart failure with preserved ejection fraction: Status: Acute Code(s): I50.30 - Unspecified diastolic (congestive) heart failure (7) Peripheral vascular disease: Status: Acute Code(s): I73.9 - Peripheral vascular disease, unspecified (8) Atrial fibrillation: Status: Inactive Code(s): I48.91 - Unspecified atrial fibrillation (9) Morbid obesity: Status: Acute Code(s): E66.01 - Morbid (severe) obesity due to excess calories (10) Coronary artery disease: Status: Acute Code(s): I25.10 - Atherosclerotic heart disease of [place] coronary artery without angina pectoris (11) Chronic kidney disease, stage 3a: Status: Chronic Code(s): N18.31 - Chronic kidney disease, stage 3a (12) Hyperlipidemia: Status: Chronic Code(s): E78.5 - Hyperlipidemia, unspecified (13) Pulmonary hypertension: Status: Acute Code(s): I27.20 - Pulmonary hypertension, unspecified Plan 88 year old female with below past medical history hospitalized for sepsis, acute respiratory failure with hypoxia 2/2 bilateral pneumonia, complicated by copd exacerbation, admitted to TCU with debility, here for rehabilitation, strengthening, prior to discharge to [facility]. Debility - PT/OT. Pain - Tylenol 1000mg q6 prn pain (1-10). Bowel - senna/colace 1 tablet bid, Magnesium citrate 300ml daily prn. Adult immunization - Administer pneumonia vaccine, covid vaccine, flu vaccine as appropriate. DVT prophylaxis - on warfarin. Gout - Allopurinol 100mg daily. Hypertension - Metoprolol 50mg bid, Cardizem 60mg q12, Amlodipine 5mg daily. Bilateral pneumonia - Augmentin 500mg tid thru 11/07/2023. Recurrent UTI - Methenamine 1gm bid, Vitamin C 500mg bid. Cough - Tessalon perles 100mg 14h prn. Atrial fibrillation - Metoprolol 50mg bid, Cardizem 60mg q12, warfarin 3mg daily, monitor INR. HFpEF - Metoprolol 50mg bid, Imdur 60mg daily, Furosemide 80mg bidlx. Allergic Rhinitis - Atrovent 2 sprays daily, Sodium chloride 2 sprays q4 prn. COPD - Duoneb 3ml q6wa, Prednisone taper. Coronary Artery Disease - Metoprolol 50mg bid, Imdur 60mg daily, Warfarin 3mg daily, NTG 0.4mg sl q5m prn. Hypothyroidism - Levothyroxine 88mcg daily. Skin irritation - Calmoseptine topical bid. Tinea Corporis - Nystatin powder topical bid. GERD - Pantoprazole 40mg daily. Hypokalemia - KCL 40meq tid. Pulmonary hypertension - Revatio 20mg tid. Overactive bladder - Gemtasa 75mg daily. Allergies/Procedures Done in Hospital Allergies ibuprofen Allergy (Verified 10/21/23 09:03) Unknown chlorthalidone Adverse Reaction (Intermediate, Verified 10/21/23 09:03) Really dizzy and lightheaded Procedures: None Type of Care/Length of Stay Estimated LOS: Convalescent Care Less Than 30 days Type of Care Needed: Half-Way/Assisted Living Rehab Potential: Poor Prognosis: Poor Additional Orders/Day of Discharge Day of Discharge: 11/07/23 Dietary and Speech Recommendations Dietitian Recommendations/Changes: continue cardiac diet as tolerated, will liberalize if PO Intake at meals fails Discharge Plan Admission Admit Date/Time: 11/04/23 15:26 Primary Reason for Your Visit: Debility. Attending Provider: Aditya Hope Chi Primary Care Provider: Aditya Hope Chi Instructions Additional Instructions / Restrictions: Discharge to [facility] 11/07/2023 with [facility]. Discharge Orders/Prescriptions Prescriptions: Discontinued furosemide 40 mg tablet 80 mg PO BID icosapent ethyl [Vascepa] 1 gram capsule 2 g PO BID potassium chloride 20 mEq tablet extended release 40 meq PO TID aspirin [Adult Aspirin Regimen] 81 mg tablet,delayed release (DR/EC) 81 mg PO DAILY sildenafil (pulm.hypertension) 20 mg tablet 20 mg PO TID Rx Instructions: administer doses at least 4-6 hours apart ascorbic acid (vitamin C) 500 MG tablet 500 mg PO DAILY allopurinol 100 MG tablet 100 mg PO DAILYCM methenamine hippurate 1 GM tablet 1 gm PO BID Patient Comments: TAKE 1 TABLET BY MOUTH TWICE A DAY cyanocobalamin (vitamin B-12) 1,000 MCG capsule 1,000 mcg PO DAILY levothyroxine 88 mcg tablet 88 mcg PO DAILY esomeprazole magnesium 40 mg capsule,delayed release(DR/EC) 40 mg PO DAILY Myrbetriq 50 mg tablet extended release 24 hr 50 mg PO DAILY nitroglycerin 0.4 mg tablet, sublingual 0.4 mg sublingual PRN PRN (Reason: Chest Pain) acetaminophen [Tylenol] 325 mg Tablet 650 mg PO Q6H PRN PRN (Reason: Pain Score 1-10/Temp > 100.7 F) Qty: 0 0RF benzonatate 100 mg Capsule 100 mg PO Q4H PRN PRN (Reason: Cough) Qty: 0 0RF diltiazem HCl 60 mg tablet 60 mg PO .Q12 ipratropium bromide 42 mcg (0.06 %) spray,non-aerosol 2 spray INTRANASAL DAILY warfarin 2.5 mg tablet 3 mg PO DAILY Rx Instructions: PT STATES THAT HER DOSE MAY HAVE CHANGED warfarin 3 mg tablet 3 mg PO DAILY ipratropium-albuterol 0.5 mg-3 mg(2.5 mg base)/3 mL Solution For Nebulization 3 ml inhalation Q6HWA.RT Qty: 0 0RF nystatin [Nyamyc] 100,000 unit/gram Powder 1 applic topical TID Qty: 0 0RF Protocol: *Topical Application Instructions APPLICATION INSTRUCTIONS: to groin [place] Nasal 0.65 % Aerosol,[place] 2 spray NASAL Q4H PRN PRN (Reason: NASAL DRYNESS) Qty: 0 0RF menthol-zinc oxide [Calmoseptine] 0.44-20.6 % Ointment 1 applic topical TID Qty: 0 0RF Protocol: *Topical Application Instructions APPLICATION INSTRUCTIONS: apply to groin area prednisone 20 mg tablet 20 mg PO DAILY Qty: 5 0RF Rx Instructions: 20 mg daily starting 11/05/2023, discontinue after 5 doses amoxicillin-pot clavulanate [Augmentin] 500-125 mg tablet 1 tab PO TID Qty: 10 0RF Rx Instructions: 1 3 times a day with meals starting with supper on 11/04/2023, administer 10 doses then discontinue amlodipine 5 mg tablet 5 mg PO DAILY Rx Instructions: TAKE 1 TABLET BY MOUTH DAILY metoprolol tartrate 50 mg tablet 50 mg PO BID Qty: 60 11RF isosorbide mononitrate 60 mg tablet extended release 24 hr See Rx Instructions .ROUTE .COMPLEX Qty: 28 11RF Dose Instruction: TAKE 1 TABLET BY MOUTH DAILY Rx Instructions: TAKE 1 TABLET BY MOUTH DAILY Referrals / Follow Up: Aditya Hope Chi, MD [Primary Care Provider] - Disposition Disposition (needs filled in before D/C Order can be placed): Hospice in Medical Facility (12) Hyperlipidemia Qualifiers: Hyperlipidemia type: pure hypercholesterolemia Qualified Code(s): E78.00 - Pure hypercholesterolemia, unspecified; E78.0 - Pure hypercholesterolemia
--- NOTE | 2023-11-06 13:37 | CASEMGMT ---
Social Work Nursing notfied this worker that pt was tearful and expressing wishes for end of life with hospice services. ANNMARIE spoke with Dr. Hope. spoke with pt on wishes and pt confirmed wishes are to return to [facility] with hospice. agrees to appropriateness. -- SW met with patient to complete initial assessment. Discussed patient's wishes. Pt continues to confirm she is done , wants to be comfortable, this no quality of life; I've lived a hard life, and I don't want to keep being in pain . Sw assured pt this worker will assist with coordinating hospice services and return to [place]. ANNMARIE inquired if pt has spoken with son. Pt denied to current conversation, but stated she has expressed her wishes with him before. SW offered to phone son with this worker present. Pt denied and stated this worker can phone son and tell him what pt's wishes are because it's my choice anyway . SW confirmed. Pt appreciative. BIMS () and PHQ-9 (07/17) completed MDS assessment. SW phoned son to discuss above. Son understanding and can transport pt 11/07 at 1100. SW phoned [facility] to confirm readmission with hospice, preferrably 11/07. [facility] confirmed and requested clinicals. ANNMARIE phoned Brigitte at [facility] for referral. Liaison to complete consents and agreed to admission 11/07. Faxed paperwork to [facility]. IDT updated. 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
--- NOTE | 2023-11-06 13:40 | PHA.CONS1_ITS ---
Progress Note - Pharmacy Subjective/Objective Subjective/Objective: Subjective: TCU Admission. 88 YOF presented to ER with SOB. Hospitalized for sepsis, acute respiratory failure with hypoxia 2/2 bilateral pneumonia, complicated by copd exacerbation. Admitted to TCU with debility for strengthening and rehabilitation. Objective: Allergies ibuprofen Allergy (Verified 10/21/23 09:03) Unknown chlorthalidone Adverse Reaction (Intermediate, Verified 10/21/23 09:03) Really dizzy and lightheaded Current Medications Generic Name Dose Route Start Last Admin Trade Name Freq PRN Reason Stop Dose Admin Acetaminophen 1,000 mg 11/06/23 18:00 Acetaminophen 500 Mg Tablet PO Q6 KEMAL Albuterol/Ipratropium 3 ml 11/04/23 16:30 11/06/23 08:30 Ipratropium/Albuterol Sulfate 3 Ml Ampul.Neb INHALATION 3 ml Q6HWA.RT KEMAL Administration Atropine Sulfate 4 drp 11/06/23 13:10 Atropine Sulfate 1% 2 Ml Bottle PO Q3H PRN PRN CONGESTION Calamine/Phenol 1 applic 11/04/23 22:00 11/06/23 06:14 Menthol/Lanolin/Calamine/Znox 113 Gm Tube TOPICAL 1 applic TID KEMAL Administration Protocol Diltiazem HCl 60 mg 11/04/23 22:00 11/06/23 09:04 Diltiazem 60 Mg Tablet PO 60 mg Q12 KEMAL Administration Protocol Furosemide 80 mg 11/05/23 06:00 11/06/23 06:13 Furosemide 80 Mg Tablet PO 80 mg BIDLX KEMAL Administration Protocol Sodium Chloride 250 mls @ 15 mls/hr 11/04/23 15:57 IV .[id number] PRN Saline Flush Lorazepam 1 mg 11/06/23 13:10 Lorazepam 2 Mg/Ml Bottle SL Q4H PRN PRN ANXIETY/RESTLESSNESS/SLEEP Metoprolol Tartrate 50 mg 11/04/23 22:00 11/06/23 09:06 Metoprolol Tartrate 50 Mg Tablet PO 50 mg BID KEMAL Administration Protocol Morphine Sulfate 10 mg 11/06/23 13:10 Morphine (Oral Solution) 10mg/0.5ml Syringe SL/PO Q1H PRN PRN Pain Score 1-10 Nystatin 1 applic 11/04/23 22:00 11/06/23 06:14 Nystatin Powder 15gm Bottle TOPICAL 1 applic TID KEMAL Administration Protocol Prednisone 20 mg 11/05/23 08:00 11/06/23 09:03 Prednisone 20 Mg Tablet PO 11/09/23 08:01 20 mg DAILYCM KEMAL Administration Sodium Chloride 10 - 40 ml 11/04/23 15:57 0.9% Saline Lock 10 Ml Syringe IV UD PRN SALINE FLUSH Sodium Chloride 2 spray 11/04/23 16:31 Sodium Chloride 0.65% 1 [place] Alexandria.Btl NASAL Q4H PRN PRN NASAL DRYNESS Tuberculin PPD 0.1 ml 11/12/23 10:00 Tuberculin,Purif.Prot.Deriv. 50 Tu/Ml Vial ID 11/12/23 10:01 X1 ONE Problem List (Updated 11/04/23 @ 20:[address] Aditya Hope MD) Pulmonary hypertension (Acute) Chronic kidney disease, stage 3a (Chronic) Coronary artery disease (Acute) Morbid obesity (Acute) Peripheral vascular disease (Acute) (HFpEF) heart failure with preserved ejection fraction (Acute) Bilateral pneumonia (Acute) Acute respiratory failure with hypoxia (Acute) Sepsis (Acute) Debility (Acute) COPD exacerbation (Chronic) Hyperlipidemia (Chronic) Vital Signs Temp Pulse Resp BP Pulse Ox O2 Del Method O2 Flow Rate 97.7 F L 105 H 18 142/59 H 97 Nasal Cannula 2 11/05/23 14:36 11/06/23 09:06 11/06/23 08:30 11/06/23 09:06 11/06/23 08:30 11/06/23 08:30 11/06/23 08:30 FiO2 32 11/05/23 22:48 Oxygen Flow Rate (L/min) 2 Oxygen Delivery Method Nasal Cannula Weight: 117.027 kg Body Mass Index (BMI) 44.2 Sodium 141 mmol/L (136-145) 11/06/23 05:31 Potassium 3.8 mmol/L (3.5-5.1) 11/06/23 05:31 Chloride 108 mmol/L (98-107) H 11/06/23 05:31 Carbon Dioxide 31.0 mmol/L (21.0-32.0) 11/06/23 05:31 Anion Gap 2 (5-15) L 11/06/23 05:31 BUN 47 mg/dL (7-18) H 11/06/23 05:31 Creatinine 1.10 mg/dL (0.55-1.02) H 11/06/23 05:31 Est GFR (MDRD) Af Amer 60 mL/min (>60) 11/06/23 05:31 Est GFR (MDRD) Non-Af 50 mL/min (>60) L 11/06/23 05:31 BUN/Creatinine Ratio 42.7 RATIO (10-20) H 11/06/23 05:31 Glucose 141 mg/dL (74-106) H 11/06/23 05:31 Assessment/Plan: Medical chart reviewed. Many medications stopped as resident is being discharged with hospice care 11/07/23. No recommendations at this time. Date Date of Note:: 11/06/23 Provider Comments Provider responsibility Provider Comments to Recommendations by Pharmacy: Agree
--- NOTE | 2023-11-06 14:24 | NS ---
MST score = 1
[2023-11-06] MEDS: morphine (oral solution) 10MG/0.5ML Syringe 10 MG SL/PO (14:44)
--- NOTE | 2023-11-06 16:10 | NURSING ---
NO for PRN ativan, morphine, and Atropine for comfort after admitted to hospice care. Patient is made aware.
[2023-11-06] MEDS: Acetaminophen 500 MG Tablet 1000 MG PO ×2 (17:13→23:00)
[2023-11-06 20:17] LABS: Bacteria 0 SEEN /hpf (None Seen); Mucous, Urine 0 SEEN /hpf (<or=2+); Red Blood Cells-Urine 0 SEEN /hpf (0-5); White Blood Cells 0 SEEN /hpf (0-5)
[2023-11-06 20:42] LABS: Color, Urine Yellow (Yellow); Glucose, Dipstick Normal (Normal); Ketone-Dipstick Negative (Negative); Leukocyte Esterase-Dipstick Negative /ul (Negative); Nitrite-Dipstick Negative (Negative); Occult Blood-Urine Negative /ul (Negative); Protein-Dipstick Negative (Negative); Urine Bilirubin Dipstick Negative (Negative); Urine Clarity Clear (Clear); Urine Urobilinogen Normal (Normal)
[2023-11-06 20:49] LABS: Squamous Epithelial Cells - UA 0-5 SEEN /hpf (5-10)
[2023-11-07] MEDS: Menthol/Lanolin/Calamine/Znox 113 GM Tube 1 APPLIC TOPICAL (05:08)
[2023-11-07] MEDS: Furosemide 80 MG Tablet PO (05:08)
[2023-11-07] MEDS: Nystatin Powder 15gm Bottle 1 APPLIC TOPICAL (05:09)
[2023-11-07] MEDS: Acetaminophen 500 MG Tablet 1000 MG PO (05:11)
[2023-11-07 05:21] VITALS: BP 133/58; PULSE 70
[2023-11-07 06:33] VITALS: PULSE 89; RESP 18; O2SAT 93
[2023-11-07] MEDS: Ipratropium/Albuterol Sulfate 3 ML AMPUL.NEB INHALATION (06:33)
[2023-11-07 07:30] LABS: Hematocrit 31.4 % (37-47); Hemoglobin 10.1 g/dL (12.0-15.0)
[2023-11-07 08:01] LABS: Anion Gap 1 (5-15); BUN 35 mg/dL (7-18); BUN/Creat Ratio 39.7 RATIO (10-20); Calcium,Total 9.7 mg/dL (8.5-10.1); Chloride 108 mmol/L (98-107); Creatinine, Serum 0.88 mg/dL (0.55-1.02); EST Glomerular Filtration Rate 64 mL/min (>60); Est Glom Filt Rate - Afr Amer 78 mL/min (>60); Estimated Creatinine Clearance 55.55 ml/min; Glucose 121 mg/dL (74-106); Potassium 3.3 mmol/L (3.5-5.1); Sodium Level 142 mmol/L (136-145)
[2023-11-07 08:18] VITALS: RESP 18
[2023-11-07 10:01] VITALS: BP 161/78; PULSE 94
[2023-11-07] MEDS: dilTIAZem 60 MG Tablet PO (10:01)
[2023-11-07] MEDS: predniSONE 20 MG Tablet PO (10:01)
[2023-11-07] MEDS: Metoprolol Tartrate 50 MG Tablet PO (10:01)
[2023-11-07 11:45] VITALS: BP 142/63; PULSE 64; RESP 14; TEMP 36.6; O2SAT 93
--- NOTE | 2023-11-17 08:43 | MDS.RN ---
Information for the mds was obtained from review of the clinical record, interview of resident, staff, and direct observation of resident's care.
--- NOTE | 2023-11-26 14:42 | MDS.RN ---
Admission MDS was completed on time , [facility] error rejected original MDS report SPENSER 11/07/23.
== END 2023-11-07 11:50 | disposition hospice, inpatient (51) | DRG 194 ==
PROVIDERS: Admitting Provider Family Medicine Geriatric Medicine; PCP Family Medicine Geriatric Medicine; Visit Provider Family Medicine Geriatric Medicine
DX: J18.9 Pneumonia, unspecified organism (principal); J44.0 Chronic obstructive pulmonary disease with (acute) lower respiratory infection; I13.0 Hypertensive heart and chronic kidney disease with heart failure and stage 1 through stage 4 chronic kidney disease, or unspecified chronic kidney disease; I50.32 Chronic diastolic (congestive) heart failure; Z68.41 Body mass index [BMI] 40.0-44.9, adult; J44.1 Chronic obstructive pulmonary disease with (acute) exacerbation; I27.20 Pulmonary hypertension, unspecified; B35.4 Tinea corporis; I48.0 Paroxysmal atrial fibrillation; E03.9 Hypothyroidism, unspecified; I73.9 Peripheral vascular disease, unspecified; N18.31 Chronic kidney disease, stage 3a; E66.01 Morbid (severe) obesity due to excess calories; E78.00 Pure hypercholesterolemia, unspecified; I25.10 Atherosclerotic heart disease of native coronary artery without angina pectoris; E87.6 Hypokalemia; Z79.82 Long term (current) use of aspirin; N32.81 Overactive bladder; Z79.01 Long term (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 anticoagulants; Z95.5 Presence of coronary angioplasty implant and graft; Z79.899 Other long term (current) drug therapy; Z79.890 Hormone replacement therapy; Z87.440 Personal history of urinary (tract) infections
CPT/HCPCS: 36415; 80048; 81001; 85014; 85018; 85025; 85610; 87070; 87086; 87205; 94640; 94660; 97110; 97162; 97166; 97530; 97535; 97802